=== PATIENT | female | born 1950 | race Caucasian/White ===

== ENCOUNTER → 2020-01-27 11:25 | Outpatient (CLI) | payer MEDICARE, SELFPAY | PROVIDERS: Referring Provider Nurse Practitioner Adult Health; Visit Provider Nurse Practitioner Adult Health | DX: R35.0 Frequency of micturition (principal) | CPT/HCPCS: 87086; 87088 ==

== ENCOUNTER → 2020-10-15 11:49 | Outpatient (CLI) | payer MEDICARE, SELFPAY | PROVIDERS: Referring Provider Urology; Visit Provider Urology | DX: Z87.440 Personal history of urinary (tract) infections (principal) | CPT/HCPCS: 87086; 87088 ==

== ENCOUNTER 2020-12-03 10:36 | Emergency (ER) | payer MEDICARE, SELFPAY ==
[2020-12-03] VITALS (9 sets, daily range): BP systolic 126–137; BP diastolic 68–77; PULSE 60–87; RESP 12–20; TEMP 36.3; O2SAT 98–100; BMI 26.7
--- NOTE | 2020-12-03 11:20 | RAD_ITS ---
STUDY: X-RAY - LEFT WRIST REASON FOR EXAM: Female, 69 years old. Injury -- SLIPPED ON ICE AND FELL IN DRIVEWAY TECHNIQUE: 3 view(s) of the wrist were obtained. COMPARISON: None. FINDINGS: Comminuted fracture of the distal radial metaphysis with dorsal facing. Normal radiocarpal articulation. Normal distal radioulnar articulation. Normal carpal bones. Normal carpal articulations. Normal carpometacarpal articulation of the thumb. Normal second through fifth carpometacarpal articulations. Normal visualized metacarpal bones. Soft tissue swelling. RAD/Wrist min 3 Views IMPRESSION: Comminuted fracture of the distal radial metaphysis with extension to the articular surface and dorsal facing. Soft tissue swelling. Electronically Signed: Esteban Blas MD at 13:07 EST , Service support ,
--- NOTE | 2020-12-03 11:33 | ED.VIS.FALL ---
History of Present Illness Chief Complaint: Fall Informant: Patient, Significant Other Occurred: Today - Just prior to arrival Mechanism/Context: Same level fall, Slip - On ice outside near her car Location: Left upper extremity Quality of Pain: Aching Current Severity: Severe Maximum Severity: Severe Worsened by: Movement Relieved by: Remaining still Associated Symptoms: Loss of function. Negative for: Parasthesias, Weakness, Inability to ambulate, Loss of consciousness, Amnesia Narrative: Patient accidentally slipped on ice, falling against some rocks in her landscaping versus her left shoulder blade and her wrist. History of osteopenia/osteoporosis. Denies any head injury or other injury, takes no anticoagulants. - Past Medical History (1) Goiter Status: Chronic (2) Osteoporosis Status: Chronic Past Medical History - Allergies and Home Meds Allergies/Adverse Reactions: Allergies lidocaine Allergy (Verified 12/03/20 15:15) Anaphylaxis carbinoxamine [From Rondec] Adverse Reaction (Verified 12/03/20 10:37) Rash erythromycin base [From E-Mycin] Adverse Reaction (Verified 12/03/20 10:37) Diarrhea pseudoephedrine [From Rondec] Adverse Reaction (Verified 12/03/20 10:37) Rash Primary Care Physician: Martin Simms DO [STAFF PHYSICIAN] - (Call for appointment to be seen within the next 1-2 weeks) PodlogAshlyn luevano NP, CLIENT APPLICATION SUPPORT ENGINEER-C [Primary Care Provider] - Lives: Spouse/ Significant Other Smoking Status: Never smoker Review of Systems General: Denies: Chills, Fever, Sweats Eyes: Denies: Visual changes - bilaterally, Diplopia ENT: Denies: Rhinorrhea, Sore throat Cardiovascular: Denies: Chest pain, Palpitations Respiratory: Denies: Dyspnea, Cough, Dyspnea on exertion Gastrointestinal: Denies: Abdominal pain, Nausea, Vomiting, Diarrhea, Melena, Hematochezia Genitourinary: Denies: Dysuria, Hematuria, Frequency Musculoskeletal: Reports: Back pain - Nonpleuritic, Extremity Pain. Denies: Neck pain Skin: Denies: Rash, Wounds Neurological: Denies: Headache, Weakness, Numbness Physical Exam Vital Signs/Narrative: Vital Signs Temp Pulse Resp BP Pulse Ox 12/03/20 10:38 97.3 F L 84 17 132/68 H 100 Inital Vital Signs reviewed: Yes General: Well nourished, Well developed, - - Anxious, no distress. Hyperventilating. Head: Normocephalic, Atraumatic Eyes: Perrl, EOMI ENT: TM's clear, No hemotympanum or drainage, No trauma Neck: Nontender, Full ROM Cardiovascular: Regular rate, Regular rhythm, No murmurs. Negative for: Tachycardia Respiratory: No distress, CTA bilaterally, Chest nontender Abdomen: Soft, Nontender, Nondistended, Normal bowel sounds Back: Paraspinal Tenderness - Mild around left parascapular area only. Negative for: Spinal Tenderness Extremeties: Deformity, limited range of motion, and tenderness left distal radius/ulna. Pulses intact. Fingers and hand otherwise nontender. No tenderness at the snuffbox. Elbow nontender and good range of motion without pain. Tenderness in the anterior proximal humerus without deformity with the pectorals insert. No AC tenderness or acromion tenderness. Otherwise the other 3 extremities full range of motion atraumatic without pain. Pelvis stable. Skin: Normal color, Trauma - Ecchymosis left wrist, skin intact Neurological: Alert, Oriented x3, Cranial nerves II-XII grossly intact, Normal Strength, Normal Sensation Psychological: - - Anxious Diagnostic/Tx/Re-eval Clinical Impression(s) from Imaging Studies Wrist X-Ray 12/03/20 11:20 IMPRESSION: Comminuted fracture of the distal radial metaphysis with extension to the articular surface and dorsal facing. Soft tissue swelling. Electronically Signed: Esteban Blas MD at 13:07 EST , Service support , Shoulder X-Ray 12/03/20 12:15 IMPRESSION: Degenerative changes. Electronically Signed: Esteban Blas MD at 13:06 EST , Service support , Wrist X-Ray 12/03/20 14:50 IMPRESSION: Satisfactory reduction of the distal radial fracture with mild residual dorsal facing. Electronically Signed: Esteban Blas MD at 15:07 EST , Service support , - Medical Decision Making X-rays of the injured areas were obtained, I am not worried about her elbow which works fine, the left shoulder/scapula are good on x-ray and she is able to move those better once we got her analgesics and calmed. Although it was not previously on her allergy list, patient states that she is anaphylactic to local anesthetics. She does not know the exact drug, but certainly we will not test this and I discussed procedural sedation which she agreed to. She had been n.p.o. for about 4 hours after we had x-rayed her left wrist showing a displaced distal radius fracture that required reduction, she was given analgesics and monitored for another hour or 2 at which point we sedated her, performed closed reduction, and splint there. This resulted in excellent reduction. Discussed with Dr. Cabrera, who agrees to follow-up with her in the office. Procedures - Upper Extremity Splints Upper Extremity Splint: Orthoglass - AP short-arm Splint Fabrication: Fabricated Location: Left - NVID after placement Procedure(s): Closed reduction left distal radius fracture --after providing procedural sedation, I manually performed reduction of the dorsally angulated and displaced distal radius fracture. Postreduction films show significantly improved alignment. Procedural sedation--patient has been n.p.o. for 5-6 hours after a small breakfast of cereal, milk, berries. She consented after discussing risk and benefits. Timeout was performed. Patient was given 1 mg/kg of IV propofol after analgesics and Zofran. Good sedation was obtained, she was on the monitor, prophylactic oxygen via nasal cannula, and IV fluids were given with airway equipment at the bedside which was not needed. There were no complications, blood pressure maintained, airway maintained, she recovered uneventfully. ED Disposition - Plan for ED Patient: Disposition: Home or Assisted Living Diagnosis: Fall from slipping on ice, Closed traumatic displaced fracture of distal end of left radius Instructions: ED Colles Fracture, Reduction Required Prescriptions: traMADol [Ultram] 50 mg PO Q4H PRN PRN 2 Days #12 tab PRN Reason: Pain Prescription Printed Referrals: PodlogAshlyn luevano NP, CLIENT APPLICATION SUPPORT ENGINEER-C [Primary Care Provider] - Martin Simms DO [STAFF PHYSICIAN] - (Call for appointment to be seen within the next 1-2 weeks)
[2020-12-03] MEDS: Ondansetron ODT 4 MG Tablet 8 MG PO (11:58)
[2020-12-03] MEDS: Morphine 4 MG/ML Syringe SC (11:58)
--- NOTE | 2020-12-03 12:15 | RAD_ITS ---
STUDY: X-RAY - LEFT SHOULDER REASON FOR EXAM: Female, 69 years old. Injury -- SLIPPED ON ICE AND FELL IN DRIVEWAY TECHNIQUE: 2 view(s) of the shoulder. COMPARISON: None. FINDINGS: Normal glenohumeral articulation. There is degenerative arthrosis of the acromioclavicular joint without inferior osseous spur formation. Normal acromion. Normal humeral head and visualized proximal humerus. The soft tissue structures are unremarkable. Mild increased markings in the left lung base suggestive of atelectasis. RAD/Shoulder min 2 Views IMPRESSION: Degenerative changes. Electronically Signed: Esteban Blas MD at 13:06 EST , Service support ,
[2020-12-03] MEDS: 0.9% Normal Saline 1,000 ML 200 ML IV (14:21)
[2020-12-03] MEDS: Propofol 200 MG/20 ML Vial IV BOLUS (14:25)
--- NOTE | 2020-12-03 14:50 | RAD_ITS ---
STUDY: X-RAY - LEFT WRIST REASON FOR EXAM: Female, 69 years old. Postreduction TECHNIQUE: 2 view(s) of the wrist were obtained. COMPARISON: Comparison is made with prior examination of the day. FINDINGS: Satisfactory reduction of the comminuted fracture of the distal radial metaphysis with extension to the articular surface. Mild residual dorsal facing. Normal radiocarpal articulation. Normal distal radioulnar articulation. Normal carpal bones. Normal carpal articulations. Normal carpometacarpal articulation of the thumb. Normal second through fifth carpometacarpal articulations. Normal visualized metacarpal bones. Soft tissue swelling. RAD/Wrist 2 Views IMPRESSION: Satisfactory reduction of the distal radial fracture with mild residual dorsal facing. Electronically Signed: Esteban Blas MD at 15:07 EST , Service support ,
== END 2020-12-03 15:31 | disposition home or self-care (01) ==
PROVIDERS: Emergency Provider Emergency Medicine; PCP Nurse Practitioner Primary Care
DX: S52.592A Other fractures of lower end of left radius, initial encounter for closed fracture (principal); W00.0XXA Fall on same level due to ice and snow, initial encounter; Y93.9 Activity, unspecified; Y92.007 Garden or yard of unspecified non-institutional (private) residence as the place of occurrence of the external cause; Y99.9 Unspecified external cause status; M81.0 Age-related osteoporosis without current pathological fracture
CPT/HCPCS: 25605; 73030; 73100; 73110; 96361; 96374; 99152; 99285; J7030

== ENCOUNTER 2020-12-10 06:20 | Outpatient (RCR) | payer MEDICARE, SELFPAY ==
[2020-12-03 10:38] VITALS: BMI 26.7
[2020-12-10] MEDS: COVID-19 VACC, MRNA(PFIZER)/PF 30 MCG/0.3 ML SYRINGE IM (15:10)
[2020-12-31] MEDS: COVID-19 VACC, MRNA(PFIZER)/PF 30 MCG/0.3 ML SYRINGE IM (14:32)
== END 2021-03-16 23:59 ==
LOC: IMMUN 06:20
PROVIDERS: PCP Nurse Practitioner Primary Care; Referring Provider Family Medicine; Visit Provider Family Medicine
DX: Z23 Encounter for immunization (principal)
CPT/HCPCS: 0001A; 0002A; 91300

== ENCOUNTER → 2022-07-19 | Outpatient (CLI) | payer MEDICARE, SELFPAY | END | disposition home or self-care (01) | LOC: LAB 10:14 | PROVIDERS: PCP Nurse Practitioner Primary Care; Referring Provider Urology; Visit Provider Urology | DX: R35.0 Frequency of micturition (principal) | CPT/HCPCS: 87086; 87088 ==

== ENCOUNTER 2024-03-29 13:00 | Outpatient (RCR) | payer MEDICARE, SELFPAY ==
--- NOTE | 2024-01-31 13:00 | HP.PTEVAL_ITS ---
Patient's Visit Information Visit Information Visit Information: NICK JOYNER is a 73 year old F referred to Physical Therapy by Dr. Sheela Montgomery MD with a diagnosis of RETROCELE WITH LOW BACK PAIN. Date of Evaluation: 01/22/24 Physical Therapist: Shanell Henson, PT, Cert MDT Visit Plan Frequency: 1-2x /Week Duration: 2-4 Months Plan: PF THERAPY FOR STRENGTHENING, LENGTHENING/RELAXATION AND ENDURANCE TRAINING. URINARY URGE AND FREQUENCY EDUCATION. HEALTHY BLADDER HABIT EDUCATION. TRAINING IN COORDINATION OF PELVIC FLOOR MUSCULATURE WITH HIP AND CORE (TRANSVERSE ABDOMINUS) MUSCULATURE. CORE STRENGTHENING. GARY LE ROM, STRETCHING AND STRENGTHENING. TRAINING IN ABDOMINAL CAVITY PRESSURE MGMT WITH ADL'S. Subjective Subjective: Work/Leisure: RETIRED. . LIVES IN 2 STORY HOME. 2 CHILDREN. VAGINAL DELIVERIES. NO COMPLICATIONS WITH DELIVERIES. Present symptoms: INTERMITTENT LOW BACK PAIN. INTERMITTENT LLE PAIN, NUMBNESS AND TINGLING. URINARY URGENCY, FREQUENCY AND URINARY INCONTINENCE. FEELS BULGING FROM DX OF RETROCELE ONLY WHEN PUTS VAGINAL CREAM IN. INTERMITTENT DIFFICULTY WITH BOWEL MVMTS. Present since: UI FOR YEARS. BACK - SEP 2022. BOWEL - ABOUT 6 MONTHS AGO. Pain Scale: LBP: WORST 8/10, LEAST 0/10. NO PELVIC FLOOR PAIN. Currently: /10. Is it getting better, worse or staying the same: STAYING THE SAME. Commenced as a result of: SITTING ON A HARD BENCH BROUGHT BACK PAIN ON. Worse: PROLONGED STANDING, BENDING (WEEDING) AND SITTING INCREASE LBP, RISING FROM SITTING PROVOKES URINARY URGENCY AT TIMES, SOMETIMES BENDING CAUSES UI. RIDING IN THE CAR PROVOKES URINARY FREQUENCY. Better: AVOIDING ICE TEA - HELPS FREQUENCY. BACK EXERCISES - CORE EX'S ON SB Disturbed sleep: GETTING UP 2-3 TIMES AT NIGHT TO URINATE. BACK PAIN IS NOT DISTURBING SLEEP. Previous history/Previous treatment: H/O UTI'S WITH THE LAST ONE BEING ABOUT 8 MONTHS AGO. TAKING CRANBERRY PILLS. SEEING 2 UROLOGISTS. PAIN MGMT WITH THE [facility] 2022 AND THAT IS WHEN SHE DID PHYSICAL THERPAY. MAINLY TREATED WITH PT. NO BACK SURGERY OR KELTON'S. Treatment this episode: CRANBERRY PILLS AND PRESCRIPTION VAGINAL CREAM FOR UTI PREVENTION. HEP FOR BACK. Coughing/sneezing/straining: NEGATIVE FOR BACK PAIN. POSITIVE Occasionally for UI. Gait: NORMAL - WALKING EVERY OTHER DAY FOR EX. How long can you delay the need to urinate: ABOUT 10 MIN. Prolapse (Falling out feeling): NO Frequency of Urination: PATIENT IS UNABLE TO ANSWER. SHE DESCRIBES SOME JUST IN CASE VOIDING AND STATES THAT DR. MONTGOMERY TOLD HER TO GO EVERY 2 HOURS BUT SHE ISN'T SURE IF SHE DOES. Ability to stop urine flow: YES Ability to initiate urine stream: YES Dyspareunia: NO Bowel Incontinence: NO Accidents: NO Unexplained weight loss: NO Imaging: MRI LUMBAR LAST 2022 - DDD PER PATIENT REPORT. PMH/Recent major surgery: OSTEOPOROSIS. HEART MURMER, GOITER, HYSTERECTOMY 2007. Objective Objective: Sitting/Standing Posture: POOR. FORWARD HEAD. ROUNDED SHOULDERS. NORMAL LUMBAR LORDOSIS. NO RELEVANT LATERAL SHIFT. Active Correction of posture: NE. ABLE TO CORRECT. DOES NOT MAINTAIN. Other Observations: THIS PATIENT AMBULATES INDEP'LY INTO PT WITHOUT ANY AD'S OR LOB. SHE IS ABLE TO INDEP'LY TRANSFER FROM SIT TO STAND AND REVERSE WITHOUT UE ASSIST. Sensory deficit: GARY LE LIGHT TOUCH SENSATION IS GROSSLY INTACT AND SYMMETRICAL ROM deficit: GARY HS, HIP ADD AND HIP ROTATOR TIGHTNESS: IR TIGHTNESS L HIP > R AND ER TIGHTNESS R HIP > L. GARY GASTROC-SOLEUS TIGHTNESS. Motor deficit: R HIP 4/5, KNEE 4/5, ANKLE 5/5. L HIP 4-/5, L KNEE 4-/5, ANKLE 5/5. INTERNAL MANUAL VAGINAL PELVIC FLOOR TESTING REVEALS 3/5 STRENGTH X 4 SEC X 3 REPS. Reflexes: 0 R LE, 1+ L LE. Dural Signs: NEGATIVE GARY LE'S. Lumbar mvmt loss: flex - NIL - DECREASES - B ext - MIN - INCREASES CENTRAL LBP - NW R SG - MIN - NE L SG - MIN - NE Core strength: FAIR Palpation: NO ACUTE LUMBAR TENDERNESS. FUNCTIONAL SCREEN: Incontinence Impact Questionnaire Score: 0 Urogenital Distress Inventory Score: 4 Balance/Special Test Scores Oswestry Low Back Score: 9 Goals Goal 1:: DECREASE C/O LBP BY AT LEAST 50% TO EASE ADL'S. Goal Time Frame: 4-6 Weeks Goal 2:: DECREASE URINARY LEAKAGE EPISODES TO ONE OR LESS PER DAY Goal Time Frame: 6-8 Weeks Goal 3:: PATIENT WILL SUCCESSFULLY DELAY VOIDING LONG NEEDED WHEN URGENCY OCCURS TO SUCCESSFULLY MAKE IT TO THE BATHROOM. Goal Time Frame: 4-6 Weeks Goal 4:: PATIENT WILL DEMONSTRATE/COMMUNICATE 10 CONSISTENT AND CONSECUTIVE 10 SECOND PELVIC FLOOR MUSCLE CONTRACTIONS TO DEMONSTRATE IMPROVED PELVIC FLOOR ENDURANCE. Goal Time Frame: 8-12 Weeks Goal 5:: DEVELOP HEALTHY FLUID INTAKE HABITS WITH FLUID INTAKE OF ? BODY WEIGHT IN OUNCES PER DAY AND 2/3 BEING WATER AND NORMALIZE VOIDING FREQUENCEY TO EVERY 3-4 HOURS. Goal Time Frame: 4-6 Weeks Goal 6:: PATIENT WILL BE INDEP WITH A HEP/HOME INSTRUCTIONS FOR CONTINUED IMPRO VEMENT ONCE FORMAL PHYSICAL THERAPY CONCLUDES. Goal Time Frame: 8-12 Weeks Rehabilitation Potential Physical Therapy Diagnosis: CORE AND GARY LE WEAKNESS AND STIFFNESS. PELVIC FLOOR WEAKNESS. SX'S OF STRESS UI, URGE UI AND INCREASED URINARY FREQUENCY. Rehabilitation Potential: Good Anticipated Interventions Patient/Client Instruction: Educate patient on: Condition, Plan of Care and Risk Factors For the Purpose of:: To improve self management Therapeutic Exercise to Include: Strength training, Endurance training, Body mechanics, Postural training, Flexibilty training, Neuromotor development, In an aquatic setting and Dynamic Lumbar Stabilization For the Purpose of:: To decrease pain, To improve muscle performance and motor function, To increase tolerance to activity/condition/position and To improve ability of physical actions for home/community/work/leisure Text: Thank you for the opportunity to evaluate your patient. For Medicare and Medicare HMO plans, please review the plan of care and approve it. It will need to be FAXED BACK to us at [phone] for Medicare purposes. For Medicare only, by signing this I certify the plan of care. Please let me know if there are questions or concerns regarding this plan of care. Physician Signature: _Date:
--- NOTE | 2024-03-29 13:58 | HP.PTDCSUM_ITS ---
Discharge Summary D/C summary: It has been my pleasure to treat NICK JOYNER referred by Dr. Sheela Perez MD, with the diagnosis of RETROCELE WITH LOW BACK PAIN for a total of 9 visit(s). Discharge Date: 03/29/24 Please see the following information for a summary of their discharge status. Subjective Subjective: THIS HAS REALLY REALLY HELPED. PATIENT REPORTS SHE IS LEAVING FOR A TRIP TO [place] AND SHE IS NOT GOING TO WEAR PROTECTION AND SHE IS NOT WORRIED ABOUT IT. STATES SHE SLEPT THROUGH THE NIGHT LAST THE NIGHT. HAS BEEN MULCHING AND MANAGING LOW BACK BETTER. HASN'T HAD ANY URINARY LEAKING FOR ABOUT A MONTH OR MORE. FEELS READY TO BE DISCHARGED. PATIENT REPORTS EVEN HER BOWEL MVMTS HAVE BEEN BETTER AND SHE ISN'T HAVING ANY PROBLEMS WITH THE BOWEL MVMTS GETTING STUCK NOW. Pain LOW BACK PAIN: Pain Intensity (Out of 10): 0 LLE PAIN: Pain Intensity (Out of 10): 0 Overall Improvement % Improvement: 95 Objective Objective/Function: ALL GOALS MET. THIS PATIENT HAS DONE REALLY WELL WITH PHYSICAL THERAPY AND SHE IS APPROPRIATE FOR AND AGREEABLE TO DISCHARGE TO [facility] AT THIS TIME. FUNCTIONAL SCREEN: Incontinence Impact Questionnaire Score: 0 Urogenital Distress Inventory Score: 1 Goals Goal 1:: DECREASE C/O LBP BY AT LEAST 50% TO EASE ADL'S. Goal Progress: Goal Met Goal 2:: DECREASE URINARY LEAKAGE EPISODES TO ONE OR LESS PER DAY Goal Progress: Goal Met Goal 3:: PATIENT WILL SUCCESSFULLY DELAY VOIDING LONG NEEDED WHEN URGENCY OCCURS TO SUCCESSFULLY MAKE IT TO THE BATHROOM. Goal Progress: Goal Met Goal 4:: PATIENT WILL DEMONSTRATE/COMMUNICATE 10 CONSISTENT AND CONSECUTIVE 10 SECOND PELVIC FLOOR MUSCLE CONTRACTIONS TO DEMONSTRATE IMPROVED PELVIC FLOOR ENDURANCE. Goal Progress: Goal Met Goal 5:: DEVELOP HEALTHY FLUID INTAKE HABITS WITH FLUID INTAKE OF ? BODY WEIGHT IN OUNCES PER DAY AND 2/3 BEING WATER AND NORMALIZE VOIDING FREQUENCEY TO EVERY 3-4 HOURS. Goal Progress: Goal Met Goal 6:: PATIENT WILL BE INDEP WITH A HEP/HOME INSTRUCTIONS FOR CONTINUED IMPROVEMENT ONCE FORMAL PHYSICAL THERAPY CONCLUDES. Goal Progress: Goal Met Plan Plan: D/C D/C Information d/c sentence: If there are questions or concerns regarding this patient's physical therapy, please feel free to call me at [phone]. Thank you for the referral of this patient. Sincerely, Shanell Henson, PT, Cert MDT Balance/Gait/Functional tests Balance/Special Test Scores Oswestry Low Back Score: 9 Improvement % Improvement: 95
== END 2024-03-29 19:00 | disposition home or self-care (01) ==
LOC: PT 13:00
PROVIDERS: PCP Nurse Practitioner Primary Care; Referring Provider Urology; Visit Provider Urology
DX: N81.6 Rectocele (principal); M54.50 Low back pain, unspecified
CPT/HCPCS: 97162; 97530

== ENCOUNTER 2024-05-07 02:39 | Emergency (ER) | payer MEDICARE, SELFPAY ==
[2024-05-07 02:40] VITALS: BP 159/107; PULSE 83; RESP 17; TEMP 36.6; O2SAT 99; BMI 27.8
[2024-05-07 02:47] VITALS: BP 159/107; PULSE 84; RESP 16; TEMP 36.6; O2SAT 99
--- NOTE | 2024-05-07 03:16 | EX.ED.DYSGE1 ---
HPI History of Present Illness Chief Complaint: Allergic Reaction Informant: patient and spouse/S.O. Narrative Narrative: 73-year-old female presenting with hives and trouble sleeping because she is itching so much. She states this has been going on for 2 weeks. She thinks it started around the time she was eating some peaches at that bot, and some blueberries that she ate from a [place] farm where [place] was [place] them and thought maybe it was something that was on them. She stopped that but the hives persist. She states when it started it was where the elastic band for her underwear is and the underwire of her bra and she has had elastic band reactions in the past. However it has spread to her legs and her arms. 3 days ago she went to urgent care because her vagina was itching to and she was not sure if she had hives there but she denied any discharge. She was given fluconazole to cover her for yeast, she did a self swab and they tested it and she was then treated for bacterial vaginosis with Flagyl which she is now taking and in addition all of this she was spreading triamcinolone cream on the rash which was not helping. Nothing is worse now she just looking for solutions. She presents at 3 AM and states she has an appointment with her material distributor later today. She has taken no Benadryl she states it makes her really sleepy. [facility] Medical History (Updated 05/07/24 @ 03:[address] Suhas Davis MD) Goiter Mitral valve prolapse Enlarged thyroid gland Home Medications ?Medication ?Instructions ?Recorded ?Last Taken ?Type cranberry 400 mg capsule 400 mg PO DAILY 10/28/17 Unknown History estradiol 0.01% (0.1 mg/gram) 1 appful vaginal QWEEK 05/07/24 Unknown History vaginal cream fluconazole 150 mg tablet 150 mg PO X1 05/07/24 Unknown History melatonin 1 mg tablet 1 mg PO QHS 05/07/24 Unknown History metoprolol succinate 25 mg 25 mg PO DAILY 05/07/24 Unknown History tablet,extended release 24 hr metronidazole 0.75 % topical gel 1 applic topical BID 05/07/24 Unknown History metronidazole 500 mg tablet 500 mg PO BID 05/07/24 Unknown History multivitamin (Daily Multi-Vitamin 1 tab PO DAILY 05/07/24 Unknown History tablet) prednisone 20 mg tablet 40 mg (2 x 20 mg) PO DAILY 6 days 05/07/24 Unknown Rx #12 TABLETS Allergy/AdvReac Type Severity Reaction Status Date / Time doxycycline Allergy Rash Verified 05/07/24 02:56 lidocaine Allergy Anaphylaxis Verified 05/07/24 02:56 brompheniramine AdvReac Unknown PT UNSURE Verified 05/07/24 02:56 OF REACTION amoxicillin (From Augmentin) AdvReac Diarrhea Verified 05/07/24 02:56 bupivacaine AdvReac Angioedema Verified 05/07/24 02:56 carbinoxamine (From Rondec) AdvReac Rash Verified 05/07/24 02:56 clavulanic acid (From AdvReac Diarrhea Verified 05/07/24 02:56 Augmentin) clotrimazole AdvReac Hives Verified 05/07/24 02:56 epinephrine AdvReac Shortness Verified 05/07/24 02:56 of breath erythromycin base (From AdvReac Diarrhea Verified 05/07/24 02:56 E-Mycin) meloxicam AdvReac Diarrhea Verified 05/07/24 02:56 pseudoephedrine (From Rondec) AdvReac Rash Verified 05/07/24 02:56 Social History Smoking Status: Never smoker ROS ROS ED Constitutional Constitutional ED: Denies chills or fever(s) Eyes Eyes: Denies change in vision or diplopia ENT ENT ED: Denies rhinorrhea or sore throat Cardiovascular Cardiovascular: Denies chest pain or palpitations Respiratory/Chest Respiratory/Chest: Denies cough or dyspnea Gastrointestinal Gastrointestinal: Denies abdominal pain, diarrhea, nausea or vomiting Genitourinary Genitourinary ED: Denies dysuria or hematuria Musculoskeletal Musculoskeletal: Reports other Details: Anterior neck soreness status post recent thyroid biopsy ; Denies back pain Integumentary Reports as per HPI, pruritus and rash; Denies abscess Neurologic Neurologic: Denies headache(s), paresthesias or weakness Psychiatric Psychiatric: Denies suicidal thoughts EXAM Physical Exam Const Vital Signs: 05/07/24 02:40 05/07/24 02:47 Temperature 97.8 F 97.8 F Temperature Source Oral Oral Pulse Rate 83 84 Respiratory Rate 17 16 Blood Pressure 159/107 H 159/107 H Blood Pressure Mean 124 124 Pulse Ox 99 99 Oxygen Delivery Method Room Air Room Air Positive well nourished and well developed General Appearance ED: well developed and NAD HEENT Reports moist mucous membranes HEENT Narrative: No stridor or dysphonia. normocephalic and atraumatic Eyes PERRL and EOMs intact bilaterally Neck full ROM and supple Neck Narrative: Small Band-Aid over biopsy site anterior base of neck where there is some erythema. No cellulitis or significant tenderness. Resp normal respiratory effort and clear to auscultation bilaterally Cardio regular rate and regular rhythm Heart Sounds: murmur systolic GI non-distended Back/Spine General Back: other FROM Extremity General Extremety ED: Negative for edema, pulses abnormal or tenderness General Extremity: Negative for edema or pulses abnormal Neuro oriented x3, CN's II-XII intact bilaterally and no sensory deficits noted Sensorium / Orientation: awake and alert Motor Exam: strength 5/5 throughout Psych mental status grossly normal Skin Skin Narrative: Scattered urticaria mostly proximal medial thighs, both upper arms and forearms, some on upper and lower abdominal wall. No other rash, no bullae or petechia or purpura. Nothing that is tender. MDM MDM MDM Narrative Medical decision making narrative: After discussing options she is amenable to taking a diphenhydramine 25 mg and amenable to starting some prednisone. We discussed the potential side effects and collateral damage from that which I think is minimal given that much itching she is having she is agreeable to take it. She was given a written prescription, only because she is going to see an material distributor later today before she will need her next dose, she is amenable to that plan. She is not anaphylactic or showing any anaphylactoid symptoms. Discharge Plan Triage Chief Complaint: Allergic Reaction Other Complaint: Rash ED Provider: Suhas Davis Dx/Rx/DC Orders Clinical Impression: Urticaria Instructions: ED Hives (Adult) Prescriptions: New prednisone 20 mg tablet 40 mg PO DAILY 6 Days Qty: 12 0RF No Action cranberry 400 MG capsule 400 mg PO DAILY metronidazole 500 mg tablet 500 mg PO BID metoprolol succinate 25 mg tablet extended release 24 hr 25 mg PO DAILY Patient Comments: will start after current issue is resolved metronidazole 0.75 % gel 1 applic topical BID fluconazole 150 mg tablet 150 mg PO X1 melatonin 1 mg tablet 1 mg PO QHS estradiol 0.01 % (0.1 mg/gram) cream 1 appful vaginal QWEEK Rx Instructions: for 14 days multivitamin [Daily Multi-Vitamin] Tablet 1 tab PO DAILY Primary Care Provider: Podlogar,Ashlyn AERONAUTICAL ENGINEERING TECHNOLOGIST Referrals: Podlogar,Ashlyn AERONAUTICAL ENGINEERING TECHNOLOGIST, AERONAUTICAL ENGINEERING TECHNOLOGIST-C [Primary Care Provider] - Doctor,Your [Non-Staff] - Keep Jaimee appointment Print Language: Vietnamese Disposition Disposition: Home, Self Care
[2024-05-07] MEDS: predniSONE 20 MG Tablet 40 MG PO (03:19)
[2024-05-07] MEDS: DiphenhydrAMINE 25 MG Capsule PO (03:19)
[2024-05-07 03:20] VITALS: BP 150/97; PULSE 95; RESP 18; TEMP 36.6; O2SAT 93
== END 2024-05-07 03:33 | disposition home or self-care (01) ==
PROVIDERS: Emergency Provider Emergency Medicine; PCP Family Medicine; Visit Provider Emergency Medicine
DX: L50.0 Allergic urticaria (principal)
CPT/HCPCS: 99283

== ENCOUNTER 2025-09-18 17:11 | Inpatient (IN) | payer MEDICARE, SELFPAY ==
[2025-09-18] VITALS (28 sets, daily range): BP systolic 65–104; BP diastolic 41–59; PULSE 73–96; RESP 14–43; TEMP 36.5–36.8; O2SAT 87–98; BMI 27.8; BMI 28.6
--- NOTE | 2025-09-18 17:51 | CT_ITS ---
PROCEDURE: CTA CHST, ABD, PEL W AND/OR WO 09/18/2025 REASON FOR EXAM: CHEST PAIN, BACK PAIN, R/O AORTIC DISSECTION TECHNIQUE: Procedure Code: CTCTA.CHAP.2 Modality: CT Procedure: CTA CHST, ABD, PEL W AND/OR WO Coronal and Sagittal reconstruction series were provided. One or more dose reduction techniques were used (e.g., Automated exposure control, adjustment of the mA and/or kV according to patient size, use of iterative reconstruction technique. CONTRAST: Isovue 370 VOLUME: 100 mL RADIATION DOSE SUMMARY: CTDlvol: 19+ 12 mGy DLP: 811 mGycm FINDINGS: Enlarged heterogeneous thyroid. The esophagus is normal in caliber. Degenerative changes of the spine. Pulmonary artery measures 2.7 cm in diameter. No pulmonary artery filling defects. The lungs are clear. The heart is enlarged. No pericardial effusion. No mediastinal lymphadenopathy. Numerous hepatic cysts. Additional subcentimeter hypodense hepatic lesions that are too small to characterize. The gallbladder, pancreas, spleen, and adrenals are unremarkable. Bilateral kidney simple cysts. No hydroureteronephrosis. The urinary bladder is unremarkable. Normal caliber large and small bowel without surrounding inflammatory changes. Dense colonic stool suspicious for constipation. Normal caliber thoracic aorta. Mild scattered atherosclerosis of the aorta. The celiac trunk, superior mesenteric artery, bilateral renal arteries, inferior mesenteric artery, and bilateral common iliac arterial systems are widely patent. No evidence of aortic dissection or aneurysm. CT/CTA Chst, Abd, Pel W and/or WO IMPRESSION: No evidence of aortic dissection or aneurysm. The thoracic and abdominal aorta are normal in caliber with only mild scattered atherosclerosis. Cardiomegaly without pericardial effusion. Pulmonary arteries are patent with n o pulmonary embolus. Clear lungs. Numerous hepatic cysts with additional subcentimeter liver lesions that are too small to characterize. Bilateral renal simple cysts. No hydroureteronephrosis. Dense colonic stool burden suspicious for constipation. Enlarged heterogeneous thyroid. Further characterization with nonemergent ultr asound is recommended. Reading Location: [facility]
--- NOTE | 2025-09-18 17:51 | EKG12_ITS ---
Test Reason : CP Blood Pressure : */* mmHG Vent. Rate : 93 BPM Atrial Rate : 93 BPM P-R Int : 144 ms QRS Dur : 90 ms QT Int : 386 ms P-R-T Axes : 29 3 12 degrees QTcB Int : 479 ms Normal sinus rhythm Minimal voltage criteria for LVH, may be normal variant ( R in aVL ) Nonspecific ST abnormality Abnormal ECG Confirmed by RANDY MOMIN, RENE ([id number]), online content editor QUINTIN PA ([id number]) on 09/22/2025 6:32:32 AM Referred By: DARCI/KIP Confirmed By: RENE PADILLA MD
--- NOTE | 2025-09-18 17:53 | ED.VIS.CHEST ---
HPI History of Present Illness Chief Complaint: Chest Pain Narrative Narrative: Patient is a 74-year-old female presenting to the emergency department for chest pain. Patient has a past medical history of MVP, palpitations/tachycardia on metoprolol nightly and sees Dr. Quezada, [facility]. Patient states that over the last few days she has had acid reflux. She states that today she lightheaded at the grocery store. States when she got home she tried lying down and she developed left-sided chest pressure that radiated between her shoulder blades and lasted for about a minute. States that she still has the discomfort between her shoulder blades and feels short of breath as well. She denies any diaphoresis, abdominal pain, nausea or vomiting. Denies any leg swelling. Denies any recent travel, hospitalizations or surgeries. Denies any history of DVT or PE. She states that before, she tried some popcorn and developed severe pain in her jaw. She denies taking anything prior to arrival to help with her symptoms. [facility] Medical History CKD (chronic kidney disease), stage II Chronic tachycardia Goiter Mitral valve prolapse Enlarged thyroid gland Home Medications ?Medication ?Instructions ?Recorded ?Last Taken ?Type cranberry fruit 400 mg capsule 500 mg PO DAILY 10/28/17 Unknown History metoprolol succinate 25 mg 25 mg PO DAILY 05/07/24 Unknown History tablet,extended release 24 hr multivitamin (Daily Multi-Vitamin 1 tab PO DAILY 05/07/24 Unknown History tablet) ascorbic acid (vitamin C) 500 mg 500 mg PO QDAY 09/18/25 Unknown History tablet (C-500) Allergy/AdvReac Type Severity Reaction Status Date / Time doxycycline Allergy Rash Verified 09/18/25 17:14 lidocaine Allergy Anaphylaxis Verified 09/18/25 17:14 brompheniramine AdvReac Unknown PT UNSURE Verified 09/18/25 17:14 OF REACTION amoxicillin (From Augmentin) AdvReac Diarrhea Verified 09/18/25 17:14 bupivacaine AdvReac Angioedema Verified 09/18/25 17:14 carbinoxamine (From Rondec) AdvReac Rash Verified 09/18/25 17:14 clavulanic acid (From AdvReac Diarrhea Verified 09/18/25 17:14 Augmentin) clotrimazole AdvReac Hives Verified 09/18/25 17:14 epinephrine AdvReac Shortness Verified 09/18/25 17:14 of breath erythromycin base (From AdvReac Diarrhea Verified 09/18/25 17:14 E-Mycin) meloxicam AdvReac Diarrhea Verified 09/18/25 17:14 pseudoephedrine (From Rondec) AdvReac Rash Verified 09/18/25 17:14 Family History Mother Heart disease Hypertension Heart failure Father GERD (gastroesophageal reflux disease) Surgical History S/P hysterectomy Social History household members: spouse Smoking Status: Never smoker alcohol intake: never substance use type: does not use ROS ROS ED ROS Narrative see HPI EXAM Physical Exam Narrative Exam Narrative: Vital signs: Reviewed General: Alert and oriented x 3. No acute distress. Well-appearing, nontoxic HEENT: Head is normocephalic and atraumatic, sinuses nontender, pupils equal round and reactive. Nares are patent. Oropharynx and throat exams normal. Neck: Supple without lymphadenopathy nontender Cardiovascular: Regular rate and rhythm. Murmur present. No rubs or gallops. Normal S1 and S2. Bilateral radial and DP pulses are symmetric and intact throughout. Respiratory: Clear to auscultation bilaterally. No wheezes, rales, rhonchi Abdominal: Soft and nontender. Normal bowel sounds. No guarding or rebound. Nonsurgical abdomen Extremities: No lower extremity edema. No tenderness. No bruising. Normal range of motion. Normal sensation. Skin: No rash or redness. Neurological: Cranial nerves II through XII are grossly intact. Normal strength and sensation. Normal cerebellar function The rest of the physical exam is unremarkable Const Vital Signs: 09/18/25 17:11 09/18/25 17:18 09/18/25 17:24 Temperature 97.8 F Temperature Source Oral Pulse Rate 95 87 Respiratory Rate 16 15 Respiratory Effort Normal Short of Breath Blood Pressure 102/58 L Blood Pressure Mean 72 Pulse Ox 98 97 Oxygen Delivery Method Room Air Oxygen Flow Rate (L/min) 09/18/25 17:30 09/18/25 17:30 09/18/25 17:45 Temperature Temperature Source Pulse Rate 84 84 96 Respiratory Rate 17 17 19 H Respiratory Effort Blood Pressure 104/59 L Blood Pressure Mean 69 Pulse Ox 94 94 91 Oxygen Delivery Method Oxygen Flow Rate (L/min) 09/18/25 18:00 09/18/25 18:15 09/18/25 18:42 Temperature Temperature Source Pulse Rate 83 88 Respiratory Rate 21 H 24 H Respiratory Effort Blood Pressure 79/44 L Blood Pressure Mean 55 Pulse Ox 93 90 91 Oxygen Delivery Method Oxygen Flow Rate (L/min) 09/18/25 18:45 09/18/25 18:50 09/18/25 18:50 Temperature Temperature Source Pulse Rate 82 83 Respiratory Rate 20 H 43 H Respiratory Effort Blood Pressure 73/42 L 75/49 L Blood Pressure Mean 51 56 Pulse Ox 87 Oxygen Delivery Method Room Air Oxygen Flow Rate (L/min) 09/18/25 18:52 09/18/25 19:00 09/18/25 19:15 Temperature Temperature Source Pulse Rate 80 76 Respiratory Rate 18 20 H Respiratory Effort Blood Pressure 78/53 L 77/51 L Blood Pressure Mean 62 60 Pulse Ox 95 92 90 Oxygen Delivery Method Nasal Cannula Oxygen Flow Rate (L/min) 2 09/18/25 19:30 09/18/25 19:45 09/18/25 19:55 Temperature Temperature Source Pulse Rate 87 73 Respiratory Rate 24 H 28 H Respiratory Effort Blood Pressure 79/50 L 65/48 L 71/48 L Blood Pressure Mean 59 55 56 Pulse Ox 92 92 90 Oxygen Delivery Method Oxygen Flow Rate (L/min) 09/18/25 20:00 09/18/25 20:15 09/18/25 20:30 Temperature 97.7 F L Temperature Source Oral Pulse Rate 77 80 Respiratory Rate 19 H 22 H Respiratory Effort Blood Pressure 70/42 L 68/47 L 74/51 L Blood Pressure Mean 51 55 59 Pulse Ox 91 94 93 Oxygen Delivery Method Oxygen Flow Rate (L/min) MDM MDM MDM Narrative Medical decision making narrative: Patient is a 74-year-old female presenting to the emergency department for chest pain and shortness of breath. Patient was seen and examined. Vitals are stable. Mildly hypotensive with a blood pressure of 104/59 when I evaluated her. Patient resting in bed comfortably no acute distress. Differential includes but is not limited to: ACS, aortic aneurysm versus dissection, pneumonia, pneumothorax, PE EKG shows normal sinus rhythm at a rate of 93. No ischemic changes or dysrhythmia. CBC with no leukocytosis and a normal hemoglobin. BMP with no significant electrolyte abnormalities. Glucose of 101. Magnesium and TSH within normal limits. Troponin and reflex within normal limits. Patient's blood pressure continued to drop, systolics in the 70s to 80s. Fluid bolus started. Patient is endorsing continued lightheadedness but no new symptoms. Normal mentation. CTA of the chest abdomen pelvis shows no evidence of aortic dissection or aneurysm. The thoracic and abdominal aorta are normal in caliber with only mild scattered atherosclerosis. Cardiomegaly without pericardial effusion. Pulmonary arteries are patent with no pulmonary embolus. Clear lungs. Numerous hepatic cysts with additional subcentimeter liver lesions that are too small to characterize. Bilateral renal simple cysts. No hydroureteronephrosis. Dense colonic stool burden suspicious for constipation. Enlarged heterogeneous thyroid. Further characterization with nonemergent ultrasound is recommended. Patient was reevaluated still hypotensive, I asked nursing staff to place an additional IV and written 2 L of normal saline. She still mentating normally I am hesitant to start pressors at this time given her normal lactate that shows no evidence of endorgan damage with her pressures. I discussed the findings with patient and at bedside and she is agreeable with being admitted. At this time I now have concern for possible causes of undifferentiated shock which include cardiogenic, septic, obstructive. There is no evidence of pericardial effusion that could be causing the shock. There is no leukocytosis or fever that could be septic in nature. I do not think is cardiogenic given her normal EKG and normal troponin. Did talk with the on-call pinion and wheel truer, Dr. Mejias who had no further recommendations. [place] that with a normal EKG and troponin it is not cardiogenic in nature. Discussed with hospitalist, Dr. Thakkar for admission to the ICU. Additional labs were added on after discussion. Considering adrenal insufficiency, however normal electrolytes.She denies any overdose on medications including her metoprolol. Clinical impression Hypotension Chest pain History & Record Review Discussion w/independent historian: Patient and Significant other Lab Data Attestation: I reviewed the patient's lab results. Labs: Laboratory Results - last 24 hr 09/18/25 09/18/25 09/18/25 17:21 19:20 20:05 WBC 5.1 RBC 4.46 Hgb 13.2 Hct 41.8 MCV 93.7 MCH 29.6 MCHC 31.6 L RDW Std Deviation 45.0 H RDW Coeff of Alexa 13.1 Plt Count 190 MPV 11.6 Immature Gran % (Auto) 0.200 Neut % (Auto) 46.3 L Lymph % (Auto) 41.4 H [place] % (Auto) 8.0 Eos % (Auto) 3.7 Baso % (Auto) 0.4 Absolute Neuts (auto) 2.4 Absolute Lymphs (auto) 2.12 Nucleated RBC % 0 ESR 4 Sodium 141 Potassium 4.1 Chloride 104 Carbon Dioxide 27.1 Anion Gap 10 BUN 17 Creatinine 0.85 Estim Creat Clear Calc 57.99 Est GFR (MDRD) Non-Af 72 BUN/Creatinine Ratio 19.8 Glucose 101 H Lactic Acid 1.3 Calcium 9.8 Magnesium 2.4 H 2.3 H Troponin T High Sens 10 Troponin T Hi Sens 2 Hr 11 C-React Prot Ext Range < 3.00 NT pro BNP II Procalcitonin < 0.02 TSH 0.660 0.622 Cortisol PM Sample 5.96 09/18/25 20:14 WBC RBC Hgb Hct MCV MCH MCHC RDW Std Deviation RDW Coeff of Alexa Plt Count MPV Immature Gran % (Auto) Neut % (Auto) Lymph % (Auto) [place] % (Auto) Eos % (Auto) Baso % (Auto) Absolute Neuts (auto) Absolute Lymphs (auto) Nucleated RBC % ESR Sodium Potassium Chloride Carbon Dioxide Anion Gap BUN Creatinine Estim Creat Clear Calc Est GFR (MDRD) Non-Af BUN/Creatinine Ratio Glucose Lactic Acid Calcium Magnesium Troponin T High Sens Troponin T Hi Sens 2 Hr C-React Prot Ext Range NT pro BNP II 1189 H Procalcitonin TSH Cortisol PM Sample ABG Data ABG results: ABG 09/18/25 20:13 Specimen Type JHONY Sample Site Not entered O2 % 2.0 VBG pH 7.36 VBG pO2 25 VBG HCO3 26 VBG Total CO2 28 VBG O2 Sat (Calc) 43 L VBG Base Excess 1 POC Mix VBG pCO2 Pt Tmp 46.2 O2 Delivery Device Cannula Radiography Diagnostic Testing: Clinical Impression(s) from Imaging Studies Chest/Abdomen/Pelvis CTA 09/18/25 17:51 IMPRESSION: No evidence of aortic dissection or aneurysm. The thoracic and abdominal aorta are normal in caliber with only mild scattered atherosclerosis. Cardiomegaly without pericardial effusion. Pulmonary arteries are patent with no pulmonary embolus. Clear lungs. Numerous hepatic cysts with additional subcentimeter liver lesions that are too small to characterize. Bilateral renal simple cysts. No hydroureteronephrosis. Dense colonic stool burden suspicious for constipation. Enlarged heterogeneous thyroid. Further characterization with nonemergent ultrasound is recommended. [facility] Disposition Disposition: Acute Care [facility] Discharge Date/Time: 09/18/25 21:31
[2025-09-18 18:19] LABS: Hematocrit 41.8 % (37-47); Hemoglobin 13.2 g/dL (12.0-15.0); Immature Granulocytes Count 0.010 X10^3/uL (0.0-0.0); Mean Corp Hgb Conc 31.6 g/dL (32-36); Mean Corpuscular Volume 93.7 fL (81-99); Mean Platelet Vol. 11.6 fl (6.2-12.0); NRBC Flagged by Analyzer 0 % (0-5); Platelet Count 190 K/mm3 (150-450); RBC Distribution Width CV 13.1 % (11.6-14.6); RBC Distribution Width SD 45.0 fl (35.1-43.9); Red Blood Count 4.46 M/mm3 (4.2-5.4); White Blood Count 5.1 K/mm3 (4.4-11.0)
--- OUTSIDE RECORDS SUMMARY | 2025-09-18 18:28 | XMS RPT_ITS | CCD ---
Author Organization [facility] Care Team Providers Care Patient Support Associate Name Role Phone Jamaica Thornton Unavailable Podlogar PLYWOOD PATCHER.Ashlyn POON Primary Care Provider Jamaica Thornton MD Unavailable Perry Bautista MD Primary Care Provider Podlogar PLYWOOD PATCHER.Ashlyn POON Primary Care Provider LEONARD POE Attending Unavailable LEONARD POE Referring Unavailable PODLOGAR, ASHLYN Primary Care Unavailable LEONARD POE Attending Unavailable LEONARD POE Referring Unavailable PODLOGAR, ASHLYN Primary Care Unavailable PRITI BOWSER Admitting Unavailable PRITI BOWSER Attending Unavailable FREDA SAAB Referring Unavailable PERRY BAUTISTA Primary Care UnavailPerry Amos MD Primary Care Provider Sheela Perez Referring Unavailable Sheela Perez Attending Unavailable Podlogar Ashlyn MENDEZ Primary Care Unavailable Charles Bautista Primary Care Unavailable Suhas Davis Attending Unavailable Podlogar PLYWOOD PATCHER.Ashlyn POON Primary Care Provider Podlogar PLYWOOD PATCHER.Ashlyn POON Unavailable Knoble PLYWOOD PATCHER.Regine POON Unavailable Knoble PLYWOOD PATCHER.Regine POON Unavailable Knoble PLYWOOD PATCHER.Regine POON Unavailable Knoble PLYWOOD PATCHER.Regine POON Unavailable BETY IGLESIAS Referring Unavailable PERRY BAUTISTA Primary Care Unavailab boyd PODLOGASHLYN LUEVANO Referring Unavailable PERRY BAUTISTA Primary Care Unavailab le PODLOGAR, ASHLYN Referring Unavailable PERRY BAUTISTA Primary Care Unavailab le PODLOGAR, ASHLYN Referring Unavailable PERRY BAUTISTA Primary Care Unavailab BETY Rush Attending Unavailable BETY IGLESIAS Referring Unavailable PERRY BAUTISTA Primary Care Unavailab PERRY Peña Attending Unavailab PERRY Peña Primary Care Unavailab PERRY Peña Primary Care Unavailab DINH Padilla Attending Unavailable DINH BARKSDALE Referring Unavailable PERRY BAUTISTA Primary Care Unavailab BETY Rush Referring Unavailable PERRY BAUTISTA Primary Care Unavailab le PERRY BAUTISTA Primary Care Unavailab DINH Padilla Referring Unavailable PERRY BAUTISTA Primary Care Unavailab REGINE Sethi Attending Unavailable PERRY BAUTISTA Primary Care Unavailab WANDA Mcleod Attending Unavailable PERRY BAUTISTA Primary Care Unavailab le PODLOGARASHLYN Attending Unavailable PERRY BAUTISTA Primary Care Unavailab FANTA Og Attending Unavailable PERRY BAUTISTA Primary Care Unavailab FANTA Og Referring Unavailable PERRY BAUTISTA Primary Care Unavailab FANTA Og Referring Unavailable PERRY BAUTISTA Primary Care Unavailab le PERRY BAUTISTA Primary Care Unavailab le PERRY BAUTISTA Referring Unavailab le PERRY BAUTISTA Primary Care Unavailab le PODLOGAR, ASHLYN Attending Unavailable PERRY BAUTISTA Primary Care Unavailab le Allergies Allergy Classification Reported Allergen(s) Allergy Type Date of Onset Reaction(s) Facility Amoxicillin / Clavulanate (1 source) Amoxicillin / Clavulanate Drug Allergy 06-20-20 05 Diarrhea [facility] Work Phone: Brompheniramine / Pseudoephedrine (1 source) Brompheniramine / Pseudoephedrine Drug Allergy 03-31-20 08 Unknown [facility] Bupivacaine / EPINEPHrine (1 source) Bupivacaine / EPINEPHrine Drug Allergy 07-11-20 23 Shortness of Breath, Angioedema [facility] Doxycycline (1 source) Doxycycline Drug Allergy 02-26-20 15 Rash [facility] Macrolides (antibiotic) (1 source) Erythromycin Drug Allergy 03-31-20 08 [facility] NSAIDs (1 source) meloxicam Drug Allergy 11-17-19 23 GI Upset [facility] Sulfonamides (antibiotic) (1 source) Sulfamethoxazole Drug Allergy 12-14-19 13 GI Upset [facility] (20 sources) Amoxicillin / Clavulanate; Translations: [AMOXICILLIN-POT CLAVULANATE] Drug Allergy 06-20-20 05 Diarrhea [facility] (20 sources) Brompheniramine / Pseudoephedrine; Translations: [BROMPHENIRAMINE-PSE UDOEPHEDRIN] Drug Allergy 03-31-20 08 Unknown [facility] (20 sources) Doxycycline; Translations: [DOXYCYCLINE] Drug Allergy 02-26-20 15 Rash [facility] (20 sources) Erythromycin; Translations: [ERYTHROMYCIN] Drug Allergy 03-31-20 08 Diarrhea [facility] (20 sources) Sulfamethoxazole; Translations: [SULFAMETHOXAZOLE] Drug Allergy 12-14-19 13 GI Upset [facility] Work Phone: (1 source) carbinoxamine Drug Allergy 12-03-19 21 [facility] Work Phone: (4 sources) Lidocaine; Translations: [LIDOCAINE] Drug Allergy 12-03-19 21 Other: See Comments [facility] Work Phone: (1 source) Pseudoephedrine Drug Allergy 12-03-19 21 [facility] Work Phone: (20 sources) meloxicam; Translations: [MELOXICAM SUBMICRONIZED] Drug Allergy 11-17-19 23 GI Upset [facility] (20 sources) Bupivacaine / EPINEPHrine; Translations: [BUPIVACAINE-EPINEPH RINE] Drug Allergy 07-11-20 23 Shortness of Breath, Angioedema [facility] Work Phone: (3 sources) Clotrimazole Drug Allergy 05-04-20 24 Hives [facility] (1 source) Amoxicillin Drug Allergy 05-07-20 24 [facility] (1 source) Brompheniramine Drug Allergy 05-07-20 24 [facility] (1 source) Bupivacaine Drug Allergy 05-07-20 24 [facility] (1 source) carbinoxamine Drug Allergy 05-07-20 [facility] (1 source) Clavulanate Drug Allergy 05-07-20 [facility] (1 source) Clotrimazole Drug Allergy 05-07-20 [facility] (1 source) Doxycycline Drug Allergy 05-07-20 [facility] (1 source) EPINEPHrine Drug Allergy 05-07-20 [facility] (1 source) Erythromycin Drug Allergy 05-07-20 [facility] (1 source) Lidocaine Drug Allergy 05-07-20 [facility] (1 source) meloxicam Drug Allergy 05-07-20 [facility] (1 source) Pseudoephedrine Drug Allergy 05-07-20 [facility] (20 sources) denosumab; Translations: [DENOSUMAB] Drug Allergy 11-12-19 Unknown [facility] (3 sources) Omeprazole; Translations: [OMEPRAZOLE] Drug Allergy 04-29-20 Other: See Comments [facility] (2 sources) Amitriptyline; Translations: [AMITRIPTYLINE] Drug Allergy 05-08-20 Other: See Comments [facility] Work Phone: Medications Current Medications Medication Drug Class(es) Dates Sig (Normalized) Sig (Original) ascorbic acid 500 mg oral tablet (20 sources) Vitamin C take 1 tablet by mouth once daily ascorbic acid, vitamin C, (VITAMIN C) 500 mg tablet Take 500 mg by mouth once daily. Active cefdinir 300 mg oral capsule (2 sources) Cephalosporin Antibacterial Start: 12-24-2024 End: 12-29-2024 take 1 capsule by mouth twice daily cefdinir (OMNICEF) 300 mg capsule Indications: Bacterial sinusitis Take 1 capsule by mouth two times a day for 5 days. 10 capsule 12/24/2024 12/29/2024 Active Start: 07-23-2022 End: 07-30-2022 take 1 capsule by mouth twice daily cefdinir (OMNICEF) 300 mg capsule Take 1 capsule by mouth twice daily for 7 days. 14 capsule 0 07/23/2022 07/30/2022 Active Comment on above: Take 1 capsule by [facility] twice daily for 7 days. celecoxib 200 mg oral capsule (7 sources) Nonsteroidal Anti-inflammatory Drug Start: 11-17-19 End: 05-16-20 take 1 capsule by mouth every twelve hours at mealtime as needed for pain celecoxib (CELEBREX) 200 mg capsule Indications: osteoarthritis , DUE TO SIDE EFFECTS OR INTOLERANCE, PATIENT HAS FAILED TRIAL AT LEAST 2 OTHER NSAIDS WITHIN THE PAST 6 MONTHS TAKE 1 PILL BY MOUTH WITH FOOD UP TO EVERY 12 HOURS NEEDED FOR PAIN 60 capsule 5 11/17/2022 05/16/2023 Active Comment on above: TAKE 1 PILL BY MOUTH WITH FOOD UP TO EVERY 12 HOURS NEEDED FOR PAIN Cranberry (20 sources) Non-Standardized Food Allergenic Extract, Non-Standardized Plant Allergenic Extract Start: 10-28-19 18 take 400 mg by mouth once daily Cranberry Active 400 MG PO DAILY October 28, 2017 1:00am CRANBERRY ORAL T maggie by mouth. Active CRANBERRY ORAL T maggie by mouth. 0 Active Comment on above: Take by mouth. DULoxetine 30 mg delayed release oral capsule (1 source) Serotonin and Norepinephrine Reuptake Inhibitor Start: 05-08-20 End: 06-07-20 take 1 capsule by mouth once daily DULoxetine DR (CYMBALTA) 30 mg capsule Take 1 capsule by mouth once daily. 30 capsule 05/08/2025 06/07/2025 Active fluconazole 150 mg oral tablet (1 source) Azole Antifungal Start: 05-04-20 24 End: 05-04-20 24 take 1 tablet by mouth once fluconazole (DIFLUCAN) 150 mg tablet Indications: Vaginal itching Take 1 tablet by mouth one time only for 1 dose. 1 tablet 0 05/04/2024 05/04/2024 Active gabapentin 100 mg oral capsule (15 sources) Anti-epileptic Agent Start: 01-18-20 25 End: 03-14-20 gabapentin (NEURONTIN) 100 mg capsule Take two tablets at bedtime 60 capsule 1 02/14/2025 Active Start: 01-17-2025 End: 02-14-2025 gabapentin (NEURONTIN) 400 m g capsule Indications: Postherpetic neuralgia Take 400 mg at bedtime along with 200 mg in the morning 30 capsule 1 01/17/2025 02/14/2025 Discontinued Start: 01-06-2025 End: 04-06-2025 take 1 capsule by mouth once daily at bedtime gabapentin (NEURONTIN) 300 mg capsule Indications: Herpes zoster without complication , Postherpetic neuralgia Take 1 capsule by mouth daily at bedtime for 90 days. 30 capsule 2 01/06/2025 01/17/2025 Discontinued Start: 12-24-2024 End: 01-07-2025 take 1 capsule by mouth twice daily gabapentin (NEURONTIN) 100 mg capsule Indications: Herpes zoster without complication Take 1 capsule by mouth two times a day for 14 days. 28 capsule 12/24/2024 01/06/2025 Discontinued methylPREDNISolone (1 source) Corticosteroid Start: 03-17-2022 End: 03-23-2022 methylPREDNISolone (MEDROL, KAREN,) 4 mg Dose-Pack Indications: Contact dermatitis and other eczema, due to unspecified cause Follow dosing instructions, take with food. 1 Package 0 03/17/2022 03/23/2022 Active Comment on above: Follow dosing instru ctions, take with food. 24 hr metoprolol succinate 25 mg extended release oral tablet (20 sources) beta-Adrenergic Gurinder Start: 05-06-2024 End: 04-28-2025 take 1 tablet by mouth once daily metoprolol succinate ER (TOPROL XL) 25 mg 24 hr tablet Indications: Nonrheumatic mitral valve regurgitation , Palpitations TAKE 1 TABLET BY MOUTH EVERY DAY 90 tablet 3 04/28/2025 Active metroNIDAZOLE 500 mg oral tablet (15 sources) Nitroimidazole Antimicrobial Start: 05-05-2024 End: 05-12-2024 take 1 tablet by mouth twice daily metroNIDAZOLE (FLAGYL) 500 mg tablet Take 1 tablet by mouth two times a day for 7 days. 14 tablet 0 05/05/2024 05/12/2024 Active Start: 04-26-2024 End: 06-24-2024 metroNIDAZOLE (METROGEL) 0.7 5 % Topical Gel APPLY TO THE FACE TWICE DAILY 04/26/2024 06/24/2024 Discontinued Multivitamin (Daily Multiple Vitamin) 1 EACH tablet (1 source) Start: 10-28-2017 take 1 tablet by mouth once daily Multivitamin (Daily Multiple Vitamin) 1 EACH tablet Active 1 EACH PO DAILY October 28, 2017 1:00am multivitamin ORAL tablet (20 sources) Start: 06-02-2011 take 1 tablet by mouth once daily multivitamin ORAL tablet Take 1 tablet by mouth once daily. 0 06/02/2011 Active Comment on above: Take 1 tablet by kristy th once daily. ondansetron 4 mg disintegrating oral tablet (2 sources) Serotonin-3 Receptor Antagonist Start: 10-28-2017 take 8 mg by mouth every eight hours as needed Ondansetron Active 8 MG PO EVERY 8 HOURS NEEDED October 28, 2017 1:00am tiZANidine 4 mg oral tablet (7 sources) Central alpha-2 Adrenergic Agonist Start: 11-17-2022 End: 05-16-2023 take 1 tablet by mouth at bedtime as needed for muscle spasms tiZANidine (ZANAFLEX) 4 mg tablet Indications: muscle spasm Take 1 tablet by mouth at bedtime as needed (muscle spasms). 30 tablet 5 11/17/2022 05/16/2023 Active Comment on above: Take 1 tablet by kristy th at bedtime as needed (muscle spasms). valACYclovir 1000 mg oral tablet (1 source) Herpesvirus Nucleoside Analog DNA Polymerase Inhibitor, Herpes Simplex Virus Nucleoside Analog DNA Polymerase Inhibitor, Herpes Zoster Virus Nucleoside Analog DNA Polymerase Inhibitor Start: 12-24-2024 End: 12-31-2024 take 1 tablet by mouth three times daily valACYclovir (VALTREX) 1 gram tablet Indications: Herpes zoster without complication Take 1 tablet by mouth three times a day for 7 days. 21 tablet 12/24/2024 12/31/2024 Active Completed/Discontinued Medications Medication Drug Class(es) Dates Sig (Normalized) Sig (Original) amitriptyline hydrochloride 10 mg oral tablet (2 sources) Tricyclic Antidepressant Start: 04-29-2025 End: 05-13-2025 take 1 tablet by mouth once daily at bedtime amitriptyline (ELAVIL) 10 mg tablet Indications: RUQ abdominal pain , Abnormal biliary HIDA scan , Postherpetic neuralgia Take 1 tablet by mouth daily at bedtime for 14 days. 14 tablet 04/29/2025 05/08/2025 Discontinued (Course of therapy completed) azithromycin 250 mg oral tablet (3 sources) Macrolide Antimicrobial Start: 11-22-2023 End: 11-27-2023 azithromycin (ZITHROMAX Z-KAREN) 250 mg tablet Take 2 tablets day one, then, 1 tablet daily until gone. 6 tablet 11/22/2023 11/27/2023 Start: 01-20-2023 End: 01-25-2023 azithromycin (ZITHROMAX Z-PA K) 250 mg tablet Take 2 tablets day one, then, 1 tablet daily until gone. 6 tablet 0 01/20/2023 01/25/2023 Active Comment on above: Take 2 tablets day o ne, then, 1 tablet daily until gone. AZO CRANBERRY (CRANBERRY EXT-C-L. SPOROGENES) 450-30-50 [id number] tab (20 sources) Start: 06-02-2011 End: 07-18-2023 AZO CRANBERRY (CRANBERRY EXT-C-L. SPOROGENES) 450-30-50 [id number] tab Take by mouth. 0 06/02/2011 07/18/2023 Discontinued (Discontinued by Patient) Start: 06-02-2011 AZO CRANBERRY (CRANBERRY EXT-C-L. SPOROGENES) 450-30-50 [id number] tab Take by mouth. 0 06/02/2011 Active Comment on above: Take by mouth. Cranberry Ext-C-L. Sporogenes ([id number] ITAMIN C) 450-30-50 [id number]-[id number] ORAL Tab (2 sources) Start: 06-02-20 11 Cranberry Ext-C-L. Sporogenes (CRANBERRY-PROBIOTICS- VITAMIN C) 450-30-50 fm-re-rlpvfxf ORAL Tab Take by mouth. 0 06/02/2011 Active Comment on above: Take by mouth. cyclobenzaprine hydrochloride 10 mg oral tablet (12 sources) Muscle Relaxant Start: 09-26-20 End: 11-17-19 take 0.5-1 tablets by mouth three times daily as needed for muscle spasms cyclobenzaprine (FLEXERIL) 10 mg tablet Indications: Left lumbar pain Take 0.5-1 tablets by mouth three times daily as needed for muscle spasm. 20 tablet 09/26/2022 11/17/2022 Discontinued Comment on above: Take 0.5-1 tablets b y mouth three times daily as needed for muscle spasm. diphenhydrAMINE (20 sources) Histamine-1 Receptor Antagonist End: 07-10-20 diphenhydramine HCl (UNISOM SLEEPMELTS ORAL) Take by mouth. 07/10/2023 Discontinued End: 07-10-2023 diphenhydramine HCl (UNISOM SLEEPMELTS ORAL) Take by mouth. 0 07/10/2023 Discontinued diphenhydramine HCl (UNISOM SLEEPMELTS ORAL) Take by mouth. 0 Active Comment on above: Take by mouth. estradiol 0.1 mg/ml vaginal cream (20 sources) Estrogen Start: 02-05-20 13 End: 11-12-19 estradiol 0.01 % (0.1 mg/g) vaginal cream Indications: Recurrent UTI Apply pea-sized amount to urethral opening twice a week. 1 Tube 1 02/04/2013 11/12/2024 Discontinued (Discontinued by another Health Care Provider) Comment on above: Apply pea-sized amou nt to urethral opening twice a week. famotidine 20 mg oral tablet (7 sources) Histamine-2 Receptor Antagonist Start: 05-07-20 End: 06-24-20 take 1 tablet by mouth twice daily famotidine (PEPCID) 20 mg tablet Take 1 tablet by mouth two times a day. 60 tablet 5 05/07/2024 06/24/2024 Discontinued fexofenadine hydrochloride 180 mg oral tablet (7 sources) Histamine-1 Receptor Antagonist Start: 05-07-20 End: 06-24-20 take 1 tablet by mouth twice daily fexofenadine (LILA) 180 mg tablet Take 1 tablet by mouth two times a day. 60 tablet 5 05/07/2024 06/24/2024 Discontinued fluticasone (9 sources) Corticosteroid End: 05-07-20 fluticasone propionate (FLONASE NASAL) Use 2 Sprays in the nose as needed. 0 05/07/2024 Discontinued fluticasone prop ionate (FLONASE NASAL) Use 2 Sprays in the nose as needed. 0 Active hydrogen peroxide 15 mg/ml mucous membrane topical solution (20 sources) Start: 08-04-2022 End: 07-10-2023 Hydrogen Peroxide (PEROXYL) 1.5 % soln Indications: Soreness of tongue Use 5 mL as instructed once daily. 236 mL 08/04/2022 07/10/2023 Discontinued Comment on above: Use 5 mL as instruct ed once daily. melatonin 1 mg oral tablet (20 sources) End: 06-24-2024 melatonin 1 mg tablet Take by mouth. 06/24/2024 Discontinued Comment on above: Take by mouth. meloxicam 15 mg oral tablet (11 sources) Nonsteroidal Anti-inflammatory Drug Start: 10-17-2022 End: 11-17-2022 take 1 tablet by mouth once daily meloxicam (MOBIC) 15 mg tablet Indications: Left hip pain , Lumbar pain Take 1 tablet by mouth once daily. 30 tablet 1 10/17/2022 11/17/2022 Discontinued Comment on above: Take 1 tablet by kristy th once daily. Nitrofurantoin (15 sources) Nitrofuran Antibacterial End: 05-04-2024 NITROFURANTOIN ORAL Take by mouth as needed. 05/04/2024 Discontinued End: 05-04-2024 NITROFURANTOIN ORAL Take by mouth as needed. 0 05/04/2024 Discontinued NITROFURANTOIN O RAL Take by mouth as needed. 0 Active Comment on above: Take by mouth as nee ded. omeprazole 40 mg delayed release oral capsule (7 sources) Proton Pump Inhibitor Start: End: take 1 capsule by mouth once daily omeprazole (PRILOSEC) 40 mg capsule Take 1 capsule by mouth once daily. 90 capsule 04/02/2025 04/29/2025 Discontinued (Course of therapy completed) End: 04-02-2025 take 1 capsule by mouth once daily omeprazole (PRILOSEC) 20 mg capsule Take 20 mg by mouth once daily. 04/02/2025 Discontinued predniSONE 10 mg oral tablet (10 sources) Start: 05-07-2024 End: 06-24-2024 predniSONE (DELTASONE) 10 mg tablet 4 tabs daily for 5 days then 3 tabs daily for 2 days then 2 tabs daily for 2 days then 1 tab daily for 2 dayst hen stop 32 tablet 05/07/2024 06/24/2024 Discontinued Start: 09-26-2022 End: 10-01-2022 take 2 tablets by mouth once daily predniSONE (DELTASONE) 20 mg tablet Indications: Left lumbar pain Take 2 tablets by mouth once daily for 5 days. 10 tablet 0 09/26/2022 10/01/2022 Active Start: 03-29-2022 End: 04-07-2022 predniSONE (DELTASONE) 10 mg tablet Take 4 tabs daily for 3 days, then 2 tabs daily for 3 days, then 1 tab daily for 3 days with food. 21 tablet 0 03/29/2022 04/07/2022 Active Start: 09-15-2021 End: 03-17-2022 take 2 tablets by mouth once daily predniSONE (DELTASONE) 20 mg tablet Indications: Myalgia Take 2 tablets by mouth once daily. 10 tablet 0 09/15/2021 03/17/2022 Discontinued (Course of therapy completed) Comment on above: Take 2 tablets by mo [facility] once daily. Take 4 tabs daily fo r 3 days, then 2 tabs daily for 3 days, then 1 tab daily for 3 days with food. Take 2 tablets by mo [facility] once daily for 5 days. traMADol hydrochloride 50 mg oral tablet (1 source) Opioid Agonist Start: 12-03-19 End: 12-05-19 take 50 mg by mouth every four hours as needed Tramadol Discontinued 50 MG PO EVERY 4 HOURS NEEDED 12 2 December 03, 2020 1:00am December 05, 2020 1:03am triamcinolone acetonide 1 mg/ml topical cream (1 source) Corticosteroid Start: 03-17-20 End: 03-31-20 triamcinolone acetonide (KENALOG) 0.1 % cream Indications: Contact dermatitis, unspecified contact dermatitis type, unspecified trigger Apply 1 application to affected area three times daily for 14 days. Apply sparingly to area for rash/itching. 45 g 1 03/17/2023 03/31/2023 Comment on above: Apply 1 application to affected area three times daily for 14 days. Apply sparingly to area for rash/itching. Problems Active Problems Problem Classification Problem Date Documented Da te Episodic/Chronic Abdominal pain (7 sources) Abdominal pain; Translations: [Unspecified abdominal pain] Onset: 02-13-2025 02-13-2025 Episodic Biliary tract disease (4 sources) Cholelithiasis without obstruction; Translations: [Calculus of gallbladder without cholecystitis without obstruction] Onset: 04-29-2025 03-24-2025 Episodic Diseases of mouth; excluding dental (1 source) Glossodynia; Translations: [Glossodynia] Episodic Disorders of lipid metabolism (1 source) Mixed hyperlipidemia; Translations: [Mixed hyperlipidemia] 07-18-2023 Chronic E Codes: Fall (1 source) Unspecified fall due to ice and snow, initial encounter; Translations: [Fall due to slipping on ice or snow] Episodic Fracture of upper limb (1 source) Closed fracture of distal end of radius; Translations: [Unspecified fracture of the lower end of left radius, initial encounter for closed fracture] Episodic Heart valve disorders (20 sources) Mitral valve regurgitation; Translations: [Nonrheumatic mitral (valve) insufficiency] Onset: 07-03-2023 06-30-2023 Chronic Nausea and vomiting (1 source) Postoperative nausea and vomiting; Translations: [Nausea with vomiting, unspecified] 10-26-2023 Episodic Neoplasms of unspecified nature or uncertain behavior (1 source) Neoplasm of uncertain behavior of thyroid gland; 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] 05-14-2024 Episodic Osteoporosis (20 sources) Osteoporosis; Translations: [Age-related osteoporosis without current pathological fracture] Onset: 04-01-2010 04-01-2010 Chronic Other acquired deformities (2 sources) Lumbar spondylolisthesis; Translations: [Spondylolisthesis, lumbar region] Episodic Other female genital disorders (1 source) Pruritus of vagina; Translations: [Other specified noninflammatory disorders of vagina] 05-04-2024 Episodic Other gastrointestinal disorders (1 source) Diarrhea; Translations: [Diarrhea, unspecified] 12-09-2024 Episodic Other injuries and conditions due to external causes (2 sources) Traumatic AND/OR non-traumatic injury; Translations: [Injury, unspecified, initial encounter] Episodic Other lower respiratory disease (3 sources) Cough; Translations: [Acute cough] Episodic Other lower respiratory disease (3 sources) Cough; Translations: [Acute cough] 01-20-2023 Episodic Other nutritional; endocrine; and metabolic disorders (1 source) Hypercalcemia; Translations: [Hypercalcemia] 11-13-2024 Chronic Other nutritional; endocrine; and metabolic disorders (1 source) Hypercalcemia; Translations: [Hypercalcemia] Onset: 11-27-2024 Chronic Other nutritional; endocrine; and metabolic disorders (1 source) Loss of appetite; Translations: [Anorexia] 01-06-2025 Episodic Other screening for suspected conditions (not mental disorders or infectious disease) (2 sources) Finding of thyroid gland; Translations: [Abnormal findings on diagnostic imaging of other specified body structures] 05-01-2024 Chronic Other screening for suspected conditions (not mental disorders or infectious disease) (20 sources) Patient encounter status; Translations: [Encounter for screening for lipoid disorders] Onset: 12-07-2023 06-30-2023 Episodic Other upper respiratory disease (1 source) Chronic rhinitis; Translations: [Unspecified sinusitis (chronic)] Chronic Other upper respiratory disease (1 source) Seasonal allergic rhinitis; Translations: [Other seasonal allergic rhinitis] 03-30-2024 Chronic Other upper respiratory disease (1 source) Nasal congestion; Translations: [Nasal congestion] 10-14-2024 Episodic Other upper respiratory infections (3 sources) Bacterial sinusitis; Translations: [Chronic sinusitis, unspecified] Onset: 12-24-2024 Chronic Other upper respiratory infections (4 sources) Acute upper respiratory infection; Translations: [Acute upper respiratory infection, unspecified] 11-22-2023 Episodic Otitis media and related conditions (1 source) Acute right otitis media; Translations: [Otitis media, unspecified, right ear] 11-22-2023 Episodic Spondylosis; intervertebral disc disorders; other back problems (3 sources) Lumbar spondylosis; Translations: [Spondylosis without myelopathy or radiculopathy, lumbar region] Onset: 02-02-2023 Chronic Thyroid disorders (20 sources) Non-toxic multinodular goiter; Translations: [Nontoxic multinodular goiter] Onset: 10-20-2010 12-17-2010 Chronic Unclassified (1 source) Acute cough; Translations: [Acute cough] Onset: 12-09-2024 Urinary tract infections (20 sources) Chronic interstitial cystitis; Translations: [Interstitial cystitis (chronic) without hematuria] Onset: 06-26-2009 03-11-2019 Chronic Viral infection (9 sources) Viral disease; Translations: [Viral infection, unspecified] Onset: 12-24-2024 12-09-2024 Episodic Past or Other Problems Problem Classification Problem Date Documented Da te Episodic/Chronic Allergic reactions (20 sources) Contact dermatitis; Translations: [Unspecified contact dermatitis, unspecified cause] Onset: 04-21-2012 Episodic Bacterial infection; unspecified site (1 source) Other specified bacterial agents as the cause of diseases classified elsewhere; Translations: [Bacterial sinusitis] Onset: 12-24-2024 Episodic Cardiac dysrhythmias (20 sources) Palpitations; Translations: [Palpitations] Onset: 07-03-2023 06-30-2023 Episodic Fluid and electrolyte disorders (2 sources) Hyperkalemia; Translations: [Hyperkalemia] Onset: 11-27-2024 11-13-2024 Episodic Heart valve disorders (20 sources) Heart murmur; Translations: [Cardiac murmur, unspecified] Onset: 10-20-2010 10-20-2010 Episodic Malaise and fatigue (3 sources) Fatigue; Translations: [Other fatigue] Onset: 02-14-2025 06-30-2023 Episodic Nonspecific chest pain (20 sources) Chest pain; Translations: [Chest pain, unspecified] Onset: 07-03-2023 06-30-2023 Episodic Other acquired deformities (1 source) Spondylolisthesis, lumbar region; Translations: [Spondylolisthesis of lumbar region] Onset: 02-02-2023 Episodic Other and unspecified benign neoplasm (20 sources) Benign neoplasm of colon; Translations: [Benign neoplasm of colon, unspecified] Onset: 06-04-2008 06-04-2008 Episodic Other connective tissue disease (20 sources) Ganglion cyst; Translations: [Ganglion, unspecified site] Onset: 03-11-2019 03-11-2019 Episodic Other inflammatory condition of skin (20 sources) Itching of skin; Translations: [Pruritus, unspecified] Onset: 04-21-2012 04-21-2012 Episodic Other inflammatory condition of skin (20 sources) Pruritus, unspecified; Translations: [Unspecified pruritic disorder] Onset: 04-21-2012 04-21-2012 Episodic Other non-traumatic joint disorders (20 sources) Hip pain; Translations: [Pain in left hip] Onset: 10-21-2022 Episodic Other skin disorders (20 sources) Eruption; Translations: [Rash and other nonspecific skin eruption] Onset: 04-21-2012 Resolved: 05-07-2024 04-21-2012 Episodic Spondylosis; intervertebral disc disorders; other back problems (20 sources) Lumbago; Translations: [Left lumbar pain] Onset: 10-21-2022 Episodic Results Test Name Value Interpretation [place] E[place]ography Echocardiography Report: Transthoracic Echo [facility] Date of service: 07/10/2025 10:19:56 AM COORDINATOR Ordering physician: BETY IGLESIAS Exam indication: Routine surveillance of moderate or severe valvular regurgitation (>1yr) Technologist: Bette Hargrove [facility] Interpreting physician: Ilene Devi MD PATIENT: Name: MRS. LAURYN BANG : 1950 Age: 74 years Gender: F Primary rhythm: sinus. Height: 157.50 cm BSA: 1.78 m Weight: 72.58 kg BMI: 29.3 kg/m Heart rate 68 bpm Blood pressure 121/70 mmHg Color Doppler was utilized to interrogate the cardiac valves assessed and spectral Doppler was utilized to determine the flow velocities and pressure gradients reported in this exam. Myocardial strain analysis was performed in this exam to aid in the assessment of cardiac function. MEASUREMENTS: Value Indexed Normal Max aortic dimension 2.7 cm Ao < 3.8 Left atrial volume 161 ml (biplane A-L) 90 ml/m Helen <= 34 LV ID (diastole) 5.0 cm (2D) 2.83 cm/m LV ID (systole) 3.3 cm (2D) 1.82 cm/m IVS, leaflet tips 1.1 cm (2D) Posterior wall thickness 1.1 cm (2D) Left ventricular mass 217 g (2D) 122 g/m Global peak long strain -19.6 % LV stroke volume 78 ml (2D biplane) LV end diastolic volume 138 ml (2D biplane) 77.5 ml/m 29<=EDVi<62 LV end systolic volume 60 ml (2D biplane) 33.5 ml/m Ejection Fraction 57 % (2D biplane) EF > 54 FINDINGS: LEFT VENTRICLE The left ventricle is moderately dilated. Left ventricular systolic function is normal. Global LV myocardial strain is normal. Left ventricular diastolic function was not evaluated due to >2+ MR. Mitral annular lateral E/e': 5.3. Mitral annular septal E/e': 8.9. Wall Motion: All scored segments are normal. RIGHT VENTRICLE The right ventricle is normal in size. Right ventricular systolic function is normal. RV systolic tissue Doppler velocity is 12.0 cm/s. Tricuspid annular displacement is 1.9 cm. Estimated right ventricular systolic pressure is 30 mmHg consistent with normal pulmonary artery pressures. Estimated right atrial pressure is 3 mmHg (although IVC not seen). LEFT ATRIUM The left atrial cavity is severely dilated. RIGHT ATRIUM The right atrial cavity is normal in size (RA area = 11.3 cm ). MITRAL VALVE There is moderately severe (3+) holosystolic mitral valve regurgitation due to prolapse. There is a anteriorly directed regurgitant jet. There is no thickening. There is prolapse of the anterior and posterior mitral leaflets. Regurgitant orifice area (PISA) is 0.36 cm . The pressure half time is 42 msec. The peak mitral E/A ratio is 2.04. The average mitral E/e' ratio is 7.1. The mitral flow deceleration time is 143 msec. TRICUSPID VALVE The tricuspid valve leaflets are structurally normal. There is mild (1+ - 2+) tricuspid valve regurgitation. AORTIC VALVE The aortic valve cusps are structurally normal. There is trace aortic valve regurgitation. Tricuspid aortic valve. The peak gradient is 9 mmHg (peak velocity = 146.8 cm/s). PULMONIC VALVE The pulmonic valve cusps are structurally normal. There is trace pulmonic valve regurgitation. AORTA The visualized aorta is normal in size. Measurements - Mid ascending aorta 2.7 cm. INTERATRIAL SEPTUM The interatrial septum is mobile. There is no evidence of intracardiac shunting as detected by Doppler. PERICARDIUM There is no pericardial effusion. CONCLUSIONS: - Exam indication: Routine surveillance of moderate or severe valvular regurgitation (>1yr) - The left ventricle is moderately dilated. Left ventricular systolic function is normal. EF = 57 5% (2D biplane) Left ventricular diastolic function was not evaluated due to >2+ MR. - The right ventricle is normal in size. Right ventricular systolic function is normal. - The left atrial cavity is severely dilated. - There is at least moderately severe (3+) mitral holosystolic valve regurgitation due to MV prolapse. MR severity likely underestimated due to eccentricity of the MR jet. Coanda effect noted. Regurgitant orifice area (PISA) is 0.36 cm . - Exam was compared with the prior echocardiographic exam performed on 07/19/2024. Prior EF 56%. Prior echo showed moderately severe MR with PISA 0.28 cm2. * * * Final * * * [employer] Image : [id number] amicsSISUID [facility] 04-[facility] CNOV Office Visit (FAMPWS ) LAURYN BANG ([id number]) 1950 F Date Time Provider Department [facility]/29[facility]25 9[facility]00 [facility] your visit today, we recorded the following information about you: Pulse Blood pressure Weight 64/minute 130/76 70.3 kg Perry Bautista MD 04/29/2025 9:33 AM Signed Chief Complaint Patient presents with: Follow Up: Discuss results Recording using [employer] software for draft documentation of the visit was discussed with the patient/authorized dairy supplies sales representative; all questions welcomed and answered. Patient/authorized dairy supplies sales representative agreed to proceed HPI Lauryn Bang is a 74 year old female who presents here today for Above Complaints. Chronic Abdominal Pain: - Persistent abdominal pain since December, initially preceding a shingles outbreak by two days. - Pain described as a stabbing sensation, localized to the RUQ, with occasional radiation to the back. - Recent episode of sharp pain extending under the ribs, triggered by standing at the sink. - Pain is worse in the morning and with prolonged standing; not constant but frequently present. - Described as a pressing and sharp sensation, rated 3/10 currently and 4/10 upon waking. - Aggravated by standing and talking; not consistently relieved by any specific measures. - Associated with deep burping at night, not typical of her usual heartburn. - Takes Tums prophylactically at night to prevent heartburn. - Denies nausea, emesis, diarrhea, hematochezia, melena, dysuria, hematuria, or abnormal vaginal bleeding/discharge. - No relief from gabapentin, which caused drowsiness and constipation. - No known trauma or injury to the area. - Denies consumption of fatty foods. Shingles: - Shingles outbreak in December, with pain beginning two days prior to the rash. - Rash still causes burning and itching; pain from shingles has decreased but not resolved. - Pain from shingles believed to be related to current abdominal pain. HIDA Scan: - Recent HIDA scan showed a hyperactive gallbladder with an ejection fraction of 90%. - Ultrasound revealed benign liver cysts and gallstones without inflammation; spleen appeared normal. - Blood tests ordered by Dinh Barksdale were normal, including checks for pancreatitis, blood counts, and kidney/liver function. Medication Intolerance: - Experienced severe dehydration with omeprazole, leading to discontinuation after one dose. - No issues with Prilosec in the past. Past medical history, appointments, medications, allergies reviewed. Previous Medical History PAST MEDICAL HISTORY Diagnosis Date Acid reflux Benign neoplasm of colon Diaphragmatic hernia without mention of obstruction or gangrene takes tums Frequent UTI Dr. 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 Multiple thyroid nodules Pneumonia, viral Post herpetic neuralgia 01/17/2025 Shingles Symptomatic menopausal or female climacteric states hot flashes, night sweats Previous Surgical History PAST SURGICAL HISTORY Procedure Laterality Date COLSC FLX W/RMVL OF TUMOR POLYP LESION SNARE TQ 06/04/2008 EXC LESION TDN SHTH/JT CAPSL HAND/FNGR Left 03/20/2019 Excision of left thumb ganglion cyst THYROID RIGHT FINE NEEDLE ASPIRATION Right 05/06/2024 UNSPECIFIED ORAL SURGERY PROCEDURE, BY REPORT [place] teeth extracted UNSPECIFIED ORAL SURGERY PROCEDURE, BY REPORT 12/2016 tooth extracted VAGINAL HYSTERECTOMY UTERUS 250 GM/< 07/29/2008 Hysterectomy, vaginal w/ cystocele repair, removed one ovary Family History FAMILY HISTORY Problem Relation Age of Onset Breast Cancer Mother CHF age of breast cancer 60's Breast Cancer Sister late 50's, Cancer Sister BRAIN age 70 Breast Cancer Maternal Grandmother Patient Allergies ALLERGIES Allergen Reactions Marcaine-Epinephrin* Shortness of Breath, Angioedema Tolerates Lidocaine/Epinephrine Augmentin [Amoxicil* Diarrhea Bactrim [Sulfametho* GI Upset Doxycycline Rash Erythromycin unknown Meloxicam Submicron* GI Upset Omeprazole Other: See Comments Dry eyes, dry mouth Prolia [Denosumab] Unknown Leg aching Rondec [Bromphenira* Unknown Current Medications Current Outpatient Medications on File Prior to Visit Medication Sig metoprolol succinate ER (TOPROL XL) 25 mg 24 hr tablet TAKE 1 TABLET BY MOUTH EVERY DAY omeprazole (PRILOSEC) 40 mg capsule Take 1 capsule by mouth once daily. ascorbic acid, vitamin C, (VITAMIN C) 500 mg tablet Take 500 mg by mouth once daily. CRANBERRY ORAL Take by mouth. multivitamin ORAL tablet Take 1 tablet by mouth once daily. No current facility-administered medications on file prior to visit. Social History Social History Tobacco Use Smoking status: Never Smokeless tobacco: Never (more content not included)... Normal [facility] Biliary ducts and Gallbla dder Views for patency of biliary structures and ejection fraction W sincalide and W radionuclide Annette 03-24-2025 IMPRESSION: * Hyperkinetic gallbladder functional response/EF. Clinical correlation is recommended. * Patent CBD. Accident Examiner: CAMI Transcribe Date/Time: Mar 24 2025 5:35P Dictated by : NICK MIRZA MD This examination was interpreted and the report reviewed and electronically signed by: NICK MIRZA MD on Mar 24 2025 5:35PM [facility] DIVISION OF RADIOLOGY * * *Final Report* * * DATE OF EXAM: Mar 24 2025 2:57PM [address] HEPATOBILIARY W EF AND/OR RX / PROCEDURE REASON: Calculus of gallbladder without cholecystitis without obstruction * * * * Physician Interpretation * * * * HEPATOBILIARY SCAN WITH GALLBLADDER EJECTION FRACTION: CLINICAL HISTORY: Right upper quadrant pain. TECHNIQUE: 5.7 mCi Tc-99m Choletec IV followed by 60 minutes of abdominal imaging This was followed by 1.4 mcg CCK IV, and additional imaging to calculate a gallbladder ejection fraction FINDINGS: There is prompt and homogeneous uptake by the liver, which appears grossly normal in size and shape. Gallbladder, and proximal small bowel activity are visualized, indicating cystic duct and common bile duct patency. After CCK, the calculated gallbladder ejection fraction is 90% (normal > 35% <80%). DIVISION OF RADIOLOGY Provider, Nayana Awilda [facility] - 03/24/2025 * * *Final Report* * * DATE OF EXAM: Mar 24 2025 2:57PM [facility] [address] [facility] HEPATOBILIARY W EF AND/OR RX / PROCEDURE REASON: Calculus of gallbladder without cholecystitis without obstruction * * * * Physician Interpretation * * * * HEPATOBILIARY SCAN WITH GALLBLADDER EJECTION FRACTION: CLINICAL HISTORY: Right upper quadrant pain. TECHNIQUE: 5.7 mCi Tc-99m Choletec IV followed by 60 minutes of abdominal imaging This was followed by 1.4 mcg CCK IV, and additional imaging to calculate a gallbladder ejection fraction FINDINGS: There is prompt and homogeneous uptake by the liver, which appears grossly normal in size and shape. Gallbladder, and proximal small bowel activity are visualized, indicating cystic duct and common bile duct patency. After CCK, the calculated gallbladder ejection fraction is 90% (normal > 35% <80%). IMPRESSION IMPRESSION: * Hyperkinetic gallbladder functional response/EF. Clinical correlation is recommended. * Patent CBD. Accident Examiner: [facility] Transcribe Date/Time: Mar 24 2025 5:35P Dictated by : NICK MIRZA MD This examination was interpreted and the report reviewed and electronically signed by: NICK MIRZA MD on Mar 24 2025 5:35PM [facility] Radiology Study observation (narrative) [facility] Biliary ducts and Gallbla dder Views for patency of biliary structures and ejection fraction W sincalide and W radionuclide IVOrdered By: [facility] Provider on 03-24-2025 [facility] [place] HEPATOBILIARY W EF AND/OR RXon 03-24-2025 [place] HEPATOBILIARY W EF AND/OR RX * * *Final Report* * * DATE OF EXAM: Mar 24 2025 2:57PM [facility] 002 - [place] HEPATOBILIARY W EF AND/OR RX / PROCEDURE REASON: Calculus of gallbladder without cholecystitis without obstruction * * * * Physician Interpretation * * * * HEPATOBILIARY SCAN WITH GALLBLADDER EJECTION FRACTION: CLINICAL HISTORY: Right upper quadrant pain. TECHNIQUE: 5.7 mCi Tc-99m Choletec IV followed by 60 minutes of abdominal imaging This was followed by 1.4 mcg CCK IV, and additional imaging to calculate a gallbladder ejection fraction FINDINGS: There is prompt and homogeneous uptake by the liver, which appears grossly normal in size and shape. Gallbladder, and proximal small bowel activity are visualized, indicating cystic duct and common bile duct patency. After CCK, the calculated gallbladder ejection fraction is 90% (normal > 35% <80%). IMPRESSION: * Hyperkinetic gallbladder functional response/EF. Clinical correlation is recommended. * Patent CBD. Accident Examiner: [facility] Transcribe Date/Time: Mar 24 2025 5:35P Dictated by : NICK MIRZA MD This examination was interpreted and the report reviewed and electronically signed by: NICK MIRZA MD on Mar 24 2025 5:35PM EST [id number] Normal [facility] US ABD RIGHT UPPER QUADRANTo n 02-25-2025 US ABD RIGHT UPPER QUADRANT * * *Final Report* * * DATE OF EXAM: Feb 25 2025 8:45AM [facility] [id number] - US ABD RIGHT UPPER QUADRANT / PROCEDURE REASON: Generalized abdominal pain * * * * Physician Interpretation * * * * EXAMINATION: RIGHT UPPER QUADRANT ULTRASOUND CLINICAL HISTORY: Abdominal pain. TECHNIQUE: Sonography of the right upper quadrant was performed. Images were obtained and stored in a permanent archive. MQ: URUQ_2 COMPARISON: None. RESULT: Pancreas: Normal sonographic appearance. Portions obscured: tail Liver: Echotexture: Normal, homogeneous. Echogenicity: Normal Surface contour: Smooth Lesions: Several cysts, largest in the left lobe with thin septation measuring 4.7 cm. Biliary: No intrahepatic biliary duct dilation. CBD: 0.6 cm at the hilum. Gallbladder: Normal caliber -Contents: Cholelithiasis -Wall: Normal -Other: No pericholecystic fluid. Right Kidney: No hydronephrosis. Few cysts. Ascites: None. Spleen: The length of the spleen is 10.9 cm. There are no splenic lesions. IMPRESSION: Benign hepatic cysts. Cholelithiasis without changes of cholecystitis. No splenomegaly Accident Examiner: CAMI Transcribe Date/Time: Feb 28 2025 6:49A Dictated by : JAMEY MARKS MD This examination was interpreted and the report reviewed and electronically signed by: JAMEY MARKS MD on Feb 28 2025 6:56AM EST [id number] Normal [facility] US ABD SPLEEN -NBon 02-26-20 US ABD SPLEEN -NB * * *Final Report* * * DATE OF EXAM: Feb 25 2025 8:45AM [facility] [id number] - US ABD SPLEEN -NB / PROCEDURE REASON: Generalized abdominal pain * * * * Physician Interpretation * * * * EXAMINATION: RIGHT UPPER QUADRANT ULTRASOUND CLINICAL HISTORY: Abdominal pain. TECHNIQUE: Sonography of the right upper quadrant was performed. Images were obtained and stored in a permanent archive. MQ: URUQ_2 COMPARISON: None. RESULT: Pancreas: Normal sonographic appearance. Portions obscured: tail Liver: Echotexture: Normal, homogeneous. Echogenicity: Normal Surface contour: Smooth Lesions: Several cysts, largest in the left lobe with thin septation measuring 4.7 cm. Biliary: No intrahepatic biliary duct dilation. CBD: 0.6 cm at the hilum. Gallbladder: Normal caliber -Contents: Cholelithiasis -Wall: Normal -Other: No pericholecystic fluid. Right Kidney: No hydronephrosis. Few cysts. Ascites: None. Spleen: The length of the spleen is 10.9 cm. There are no splenic lesions. IMPRESSION: Benign hepatic cysts. Cholelithiasis without changes of cholecystitis. No splenomegaly Accident Examiner: [facility] Transcribe Date/Time: Feb 28 2025 6:49A Dictated by : JAMEY MARKS MD This examination was interpreted and the report reviewed and electronically signed by: JAMEY MARKS MD on Feb 28 2025 6:56AM EST [id number] Normal [facility] CNOVon 02-14-2025 CNOV Office Visit (INTMWS ) MIKELLAURYN LEWIS Ana ([id number]) 1950 F Date Time Provider Department 02/14/25 1:40 PM FANTA TRAMMELL INTMWS During your visit today, we recorded the following information about you: Pulse Blood pressure Weight 97/minute 124/72 71 kg Fanta Trammell APRN.METALLURGICAL ENGINEERING TECHNICIAN 02/14/2025 2:11 PM Signed SUBJECTIVE Lauryn Perez Beti is a 74 year old female here today for a check up on her medical problems. Chief Complaint Patient presents with: Pain: upper right abdomen on going since 12/20/24 when she had shingles. Was seen in Urgent Care on 02/13/25 and was recommend that she see primary as they had nothing else to offer for her. CIRO Velia is a 74-year-old female presenting for follow-up after being seen in [facility] yesterday for abdominal pain. Velia reports a 2-month history of right upper, middle, and lower abdominal discomfort that began around 12/20 or 12/21, coinciding with the onset of shingles. The pain has been persistent and is exacerbated by certain movements. She describes three types of pain: a constant pressure-like sensation, intermittent sharp stabbing pain, and a squeezing ache that occurs with walking, resembling muscle strain. She denies performing any physical activities that could cause such strain. She also reports deep burping, distinct from her usual heartburn, and significant fatigue, feeling totally wiped out despite sleeping well at night. She denies nausea, emesis, or changes in bowel habits. Her appetite has improved after a period of decline due to shingles and multiple preceding illnesses, including the flu, norovirus, and an upper respiratory infection since 10/10. Velia has been taking gabapentin and metoprolol at night. She recently reduced her gabapentin dose from 400 mg to 200 mg at night due to concerns about constipation, which has since improved. She attributes her fatigue to both her recent illnesses and extreme stress related to her daughter's colorectal cancer treatment and her [id number]'s hospitalizations. Her medications were reviewed today and her list is now up to date. Medications Current Outpatient Medications Medication Sig gabapentin (NEURONTIN) 100 mg capsule Take two tablets at bedtime omeprazole (PRILOSEC) 20 mg capsule Take 20 mg by mouth once daily. ascorbic acid, vitamin C, (VITAMIN C) 500 mg tablet Take 500 mg by mouth once daily. metoprolol succinate ER (TOPROL XL) 25 mg 24 hr tablet Take 1 tablet by mouth once daily. CRANBERRY ORAL Take by mouth. multivitamin ORAL tablet Take 1 tablet by mouth once daily. No current facility-administered medications for this visit. ALLERGIES Allergen Reactions Marcaine-Epinephrin* Shortness of Breath, Angioedema Tolerates Lidocaine/Epinephrine Augmentin [Amoxicil* Diarrhea Bactrim [Sulfametho* GI Upset Doxycycline Rash Erythromycin unknown Meloxicam Submicron* GI Upset Prolia [Denosumab] Unknown Leg aching Rondec [Bromphenira* Unknown ACTIVE PROBLEM LIST Encounter for Screening for Malignant Neoplasm of Colon - 12/07/2023 Palpitations - 07/03/2023 Nonrheumatic Mitral Valve Regurgitation - 07/03/2023 Other Chest Pain - 07/03/2023 Lumbar Pain - 10/21/2022 Left Hip Pain - 10/21/2022 Enlarged Thyroid Gland - 10/10/2019 Multiple Thyroid Nodules - 10/10/2019 Ganglion Cyst - 03/11/2019 Eczematous Dermatitis - 04/21/2012 Contact Dermatitis and Other Eczema, Due to Unspecified Cause - 04/21/2012 Pruritus - 04/21/2012 Urticaria - 04/21/2012 Heart Murmur - 10/20/2010 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 Chronic Interstitial Cystitis - 06/26/2009 Benign Neoplasm of Colon - 06/04/2008 Social History Tobacco Use Smoking status: Never Smokeless tobacco: Never Vaping Use Vaping status: Never Used Substance Use Topics Alcohol use: Yes Comment: Seldom Drug use: No Constitutional: (+) fatigue Gastrointestinal: (+) right upper abdominal pain, (+) belching, (-) nausea, (-) vomiting, (-) bowel habit changes Neurological: (+) sciatica, (+) neuralgia (shingles-related) Psychiatric: (+) stress OBJECTIVE BP 124/72 Pulse 97 Wt 156 lb 8.4 oz (71.0kg) SpO2 96% Physical Exam Vitals and nursing note reviewed. Constitutional: General: She is awake. She is not in acute distress. Appearance: Normal appearance. She is well-developed and well-groomed. She is not ill-appearing, toxic-appearing or diaphoretic. HENT: Head: Normocephalic. Right Ear: External ear normal. Left Ear: External ear normal. Nose: Nose normal. Eyes: General: Vision grossly intact. Conjunctiva/sclera: Conjunctivae normal. Pupils: Pupils are equal, round, and reactive to light. Neck: Vascular: No JVD. Trachea: Trachea normal. Pulmonary: Effort: Pulmonary effort is normal. No (more content not included)... Normal [facility] CBC W Auto Differential pane l (Bld)on 02-13-2025 Basophils (Bld) [#/Vol] 0.04 10*3/uL [facility] Basophils/100 WBC (Bld) 0.7 % C [facility] Differential cell count method Nom (Bld) Auto [facility] Eosinophils (Bld) [#/Vol] 0.17 10*3/uL [facility] Eosinophils/100 WBC (Bld) 3.1 % [facility] Erythrocyte distribution width (RBC) [Ratio] 14.4 % 11.5 - 15.0 % [facility] Hematocrit (Bld) [Volume fraction] 42.9 % 36.0 - 46.0 % [facility] Hemoglobin (Bld) [Mass/Vol] 13.9 g/dL 11.5 - 15.5 g/dL [facility] Immature granulocytes (Bld) [#/Vol] [facility] Immature granulocytes/100 WBC (Bld) 0.4 % [facility] Lymphocytes (Bld) [#/Vol] 2.3 10*3/uL [facility] Lymphocytes/100 WBC (Bld) 41.3 % [facility] MCH (RBC) [Entitic mass] 29.8 pg 26.0 - 34.0 pg [facility] MCHC (RBC) [Mass/Vol] 32.4 g/dL 30.5 - 36.0 g/dL [facility] MCV (RBC) [Entitic vol] 91.9 fL 80.0 - 100.0 fL [facility] Monocytes (Bld) [#/Vol] 0.43 10*3/uL [facility] Monocytes/100 WBC (Bld) 7.7 % [facility] Neutrophils (Bld) [#/Vol] 2.61 10*3/uL [facility] Neutrophils/100 WBC (Bld) 46.8 % [facility] Nucleated RBC (Bld) [#/Vol] [facility] Nucleated RBC/100 WBC (Bld) [Ratio] 0 % /100 WBC [facility] Platelet mean volume (Bld) [Entitic vol] 11.6 fL 9.0 - 12.7 fL [facility] Platelets (Bld) [#/Vol] 197 10*3/uL [facility] RBC (Bld) [#/Vol] 4.67 10*6/uL 3.90 - 5.2 0 m/uL [facility] WBC (Bld) [#/Vol] 5.57 10*3/uL [facility] Basophils (Bld) [#/Vol] 0.04 10*3/uL Normal <0.11 [facility] Comment on above: Order Comment: Speci men Type: BLOOD SPECIMENOrdering Facility: [facility] Address: [address] [place] [address] Performed By: #### 5 7021-8 ####[facility]ITALWDCLIA [id number] [place] [address] [place] Basophils/100 WBC (Bld) 0.7 % Normal [facility] Comment on above: Order Comment: Speci men Type: BLOOD SPECIMENOrdering Facility: [facility] Address: [address] [place] [address] Performed By: #### 5 7021-8 ####[facility] [id number] [place] [address] [place] Differential cell count method Nom (Bld) Auto Normal [facility] Comment on above: Order Comment: Speci men Type: BLOOD SPECIMENOrdering Facility: [facility] Address: [address] [place] [address] Performed By: #### 5 7021-8 ####[facility] [id number] [place] [address] [place] Eosinophils (Bld) [#/Vol] 0.17 10*3/uL Normal <0.46 [facility] Comment on above: Order Comment: Speci men Type: BLOOD SPECIMENOrdering Facility: [facility] Address: [address] [place] [address] Performed By: #### 5 7021-8 ####[facility] [id number] [place] [address] [place] Eosinophils/100 WBC (Bld) 3.1 % Normal [facility] Comment on above: Order Comment: Speci men Type: BLOOD SPECIMENOrdering Facility: [facility] Address: [address] [place] [address] Performed By: #### 5 7021-8 ####[facility]ILLCH[facility]HERWNCLIA [id number] [place] [address] [place] Erythrocyte distribution width (RBC) [Ratio] 14.4 % Normal 11.5-15.0 [facility] Comment on above: Order Comment: Speci men Type: BLOOD SPECIMENOrdering Facility: [facility] Address: [address] [place] [address] Performed By: #### 5 7021-8 ####[facility]ITALNCLIA [id number] [place] [address] [place] Hematocrit (Bld) [Volume fraction] 42.9 % Normal 36.0-46.0 [facility] Comment on above: Order Comment: Speci men Type: BLOOD SPECIMENOrdering Facility: [facility] Address: [address] [place] [address] Performed By: #### 5 7021-8 ####[facility]ITALNCLIA [id number] [place] [address] [place] Hemoglobin (Bld) [Mass/Vol] 13.9 g/dL Normal 11.5-15.5 [facility] Comment on above: Order Comment: Speci men Type: BLOOD SPECIMENOrdering Facility: [facility] Address: [address] [place] [address] Performed By: #### 5 7021-8 ####[facility]PITALWNCLIA [id number] [place] [address] [place] Immature granulocytes (Bld) [#/Vol] 10*3/uL Normal <0.10 [facility] Comment on above: Order Comment: Speci men Type: BLOOD SPECIMENOrdering Facility: [facility] Address: [address] [place] [address] Performed By: #### 5 7021-8 ####[facility]US[facility] [id number] [place] [address] [place] Immature granulocytes/100 WBC (Bld) 0.4 % Normal [facility] Comment on above: Order Comment: Speci men Type: BLOOD SPECIMENOrdering Facility: [facility] Address: [address] [place] [address] Performed By: #### 5 7021-8 ####[facility] [id number] [place] [address] [place] Lymphocytes (Bld) [#/Vol] 2.30 10*3/uL Normal 1.00-4.00 [facility] Comment on above: Order Comment: Speci men Type: BLOOD SPECIMENOrdering Facility: [facility] Address: [address] [place] [address] Performed By: #### 5 7021-8 ####[facility] [id number] [place] [address] [place] Lymphocytes/100 WBC (Bld) 41.3 % Normal [facility] Comment on above: Order Comment: Speci men Type: BLOOD SPECIMENOrdering Facility: [facility] Address: [address] [place] [address] Performed By: #### 5 7021-8 ####[facility] [id number] [place] [address] [place] MCH (RBC) [Entitic mass] 29.8 pg Normal 26.0-34.0 [facility] Comment on above: Order Comment: Speci men Type: BLOOD SPECIMENOrdering Facility: [facility] Address: [address] [place] [address] Performed By: #### 5 7021-8 ####[facility] [id number] [place] [address] [place] MCHC (RBC) [Mass/Vol] 32.4 g/dL Normal 30.5-36.0 [facility] Comment on above: Order Comment: Speci men Type: BLOOD SPECIMENOrdering Facility: [facility] Address: [address] [place] [address] Performed By: #### 5 7021-8 ####[facility] HOSPITALNCAMELIA [id number] [place] [address] [place] MCV (RBC) [Entitic vol] 91.9 fL Normal 80.0-100.0 [facility] Comment on above: Order Comment: Speci men Type: BLOOD SPECIMENOrdering Facility: [facility] Address: [address] [place] [address] Performed By: #### 5 7021-8 ####[facility]OSPITALNCOGDEN [facility] [id number] [place] [address] [place] Monocytes (Bld) [#/Vol] 0.43 10*3/uL Normal <0.87 [facility] Comment on above: Order Comment: Speci men Type: BLOOD SPECIMENOrdering Facility: [facility] Address: [address] [place] [address] Performed By: #### 5 7021-8 ####[facility]ITALNCLIA [id number] [place] [address] [place] Monocytes/100 WBC (Bld) 7.7 % Normal [facility] Comment on above: Order Comment: Speci men Type: BLOOD SPECIMENOrdering Facility: [facility] Address: [address] [place] [address] Performed By: #### 5 7021-8 ####[facility]ITALNCLIA [id number] [place] [address] [place] Neutrophils (Bld) [#/Vol] 2.61 10*3/uL Normal 1.45-7.50 [facility] Comment on above: Order Comment: Speci men Type: BLOOD SPECIMENOrdering Facility: [facility] Address: [address] [place] [address] Performed By: #### 5 7021-8 ####[facility] MINGOCLARKSVILLEBUFFYLIA [id number] [place] [address] [place] Neutrophils/100 WBC (Bld) 46.8 % Normal [facility] Comment on above: Order Comment: Speci men Type: BLOOD SPECIMENOrdering Facility: [facility] Address: [address] [place] [address] Performed By: #### 5 7021-8 ####[facility] CAMPUSLIA [id number] [place] [address] [place] Nucleated RBC (Bld) [#/Vol] 10*3/uL Normal <0.01 [facility] Comment on above: Order Comment: Speci men Type: BLOOD SPECIMENOrdering Facility: [facility] Address: [address] [place] [address] Performed By: #### 5 7021-8 ####[facility] [id number] [place] [address] [place] Nucleated RBC/100 WBC (Bld) [Ratio] 0.0 /100 WBC Normal [facility] Comment on above: Order Comment: Speci men Type: BLOOD SPECIMENOrdering Facility: [facility] Address: [address] [place] [address] Performed By: #### 5 7021-8 ####[facility] CAMPUSLIA [id number] [place] [address] [place] Platelet mean volume (Bld) [Entitic vol] 11.6 fL Normal 9.0-12.7 [facility] Comment on above: Order Comment: Speci men Type: BLOOD SPECIMENOrdering Facility: [facility] Address: [address] [place] [address] Performed By: #### 5 7021-8 ####[facility] CAMPUSLIA [id number] [place] [address] [place] Platelets (Bld) [#/Vol] 197 10*3/uL Normal 150-400 [facility] Comment on above: Order Comment: Speci men Type: BLOOD SPECIMENOrdering Facility: [facility] Address: [address] [place] [address] Performed By: #### 5 7021-8 ####[facility]ITALNCLIA [id number] [place] [address] [place] RBC (Bld) [#/Vol] 4.67 10*6/uL Normal 3.90-5.20 [facility] Comment on above: Order Comment: Speci men Type: BLOOD SPECIMENOrdering Facility: [facility] Address: [address] [place] [address] Performed By: #### 5 7021-8 ####[facility]ITALNCLIA [id number] [place] [address] [place] WBC (Bld) [#/Vol] 5.57 10*3/uL Normal 3.70-11.00 [facility] Comment on above: Order Comment: Speci men Type: BLOOD SPECIMENOrdering Facility: [facility] Address: [address] [place] [address] Performed By: #### 5 7021-8 ####[facility]ITALNCLIA [id number] [place] [address] [place] CNOVon 02-13-2025 CNOV Office Visit ([facility] ) LAURYN BANG ([id number]) 1950 F Date Time Provider Department 02/13/25 2:45 PM DINH BARKSDALE [facility] During your visit today, we recorded the following information about you: Temperature Pulse Respiration Blood pressure 98.8 degrees 86/minute 18/minute 137/75 Weight 72.1 kg Dinh Barksdale APRN.METALLURGICAL ENGINEERING TECHNICIAN 02/13/2025 3:29 PM Signed Subjective HPI Nontoxic-appearing 74-year-old female presents urgent care chief complaint abdominal pain. Duration of symptoms 2 months. Associated symptoms right upper middle and lower abdominal discomfort for the past 2 months. States started shortly after developing shingles. Pain has been persistent. Is exacerbated by certain movements. States is exacerbated by standing for long period of time. OTC medications none. States she does have some post shingle discomfort. Is on gabapentin currently. Rates pain as an aching 5 out of 10. States 6 out of 10 if she stands. No change in bowel or bladder habit. No vomiting. No fevers. No nausea. Past medical history prescription medications allergies reviewed .Patient presents with: Abdominal Pain: R abdomen x3 days, has had consistent pain x2 months post shingles, pain is different and worsening PAST MEDICAL HISTORY Diagnosis Date Acid reflux Benign neoplasm of colon Diaphragmatic hernia without mention of obstruction or gangrene takes tums Frequent UTI Dr. 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 Multiple thyroid nodules Pneumonia, viral Post herpetic neuralgia 01/17/2025 Shingles Symptomatic menopausal or female climacteric states hot flashes, night sweats PAST SURGICAL HISTORY Procedure Laterality Date COLSC FLX W/RMVL OF TUMOR POLYP LESION SNARE TQ 06/04/2008 EXC LESION TDN SHTH/JT CAPSL HAND/FNGR Left 03/20/2019 Excision of left thumb ganglion cyst THYROID RIGHT FINE NEEDLE ASPIRATION Right 05/06/2024 UNSPECIFIED ORAL SURGERY PROCEDURE, BY REPORT [place] teeth extracted UNSPECIFIED ORAL SURGERY PROCEDURE, BY REPORT 12/2016 tooth extracted VAGINAL HYSTERECTOMY UTERUS 250 GM/< 07/29/2008 Hysterectomy, vaginal w/ cystocele repair, removed one ovary ALLERGIES Marcaine-Epinephrine [Bupivacaine-Epinephr ine], Augmentin [Amoxicillin-Pot Clavulanate], Bactrim [Sulfamethoxazole], Doxycycline, Erythromycin, Meloxicam Submicronized, Prolia [Denosumab], and Rondec [Brompheniramine-Pseu doephedrin] MEDICATIONS gabapentin (NEURONTIN) 400 mg capsule Take 400 mg at bedtime along with 200 mg in the morning gabapentin (NEURONTIN) 100 mg capsule Take two tablets in AM in addition to 400 mg at bedtime ascorbic acid, vitamin C, (VITAMIN C) 500 mg tablet Take 500 mg by mouth once daily. metoprolol succinate ER (TOPROL XL) 25 mg 24 hr tablet Take 1 tablet by mouth once daily. CRANBERRY ORAL Take by mouth. multivitamin ORAL tablet Take 1 tablet by mouth once daily. FAMILY HISTORY Problem Relation Age of Onset Breast Cancer Mother CHF age of breast cancer 60's Breast Cancer Sister late 50's, Cancer Sister BRAIN age 70 Breast Cancer Maternal Grandmother Social History Tobacco Use Smoking status: Never Smokeless tobacco: Never Vaping Use Vaping status: Never Used Substance Use Topics Alcohol use: Yes Comment: Seldom Drug use: No Review of Systems Constitutional: Negative for chills, fever and malaise/fatigue. HENT: Negative for congestion, ear discharge, ear pain, sinus pain and sore throat. Eyes: Negative for blurred vision, pain, discharge and redness. Respiratory: Negative for cough, hemoptysis, sputum production, shortness of breath, wheezing and stridor. Cardiovascular: Negative for chest pain. Gastrointestinal: Positive for abdominal pain. Negative for diarrhea, nausea and vomiting. Musculoskeletal: Negative for back pain, falls, joint pain, myalgias and neck pain. Skin: Negative for itching and rash. Neurological: Negative for dizziness, loss of consciousness, weakness and headaches. Objective Physical Exam Constitutional: General: She is not in acute distress. Appearance: She is not diaphoretic. HENT: Head: Normocephalic. Jaw: No trismus, tenderness, swelling or pain on movement. Mouth/Throat: Mouth: Mucous membranes are moist. Pharynx: Oropharynx is clear. Uvula midline. No pharyngeal swelling, oropharyngeal exudate, posterior oropharyngeal erythema or uvula swelling. Eyes: Conjunctiva/sclera: Conjunctivae normal. Pupils: Pupils are equal, round, and reactive to light. Cardiovascular: Rate and Rhythm: Normal rate and regular rhythm. Heart sounds: Normal heart sounds. Pulmonary: Effort: Pulmonary effort is normal. No tachypnea, accessory muscle usage or respiratory distress. Breath sounds: Normal breath sounds. No stridor. (more content not included)... Normal [facility] metabolic 2000 panelOrdered By: Ashlyn Griffin on 02-13-2025 Albumin [Mass/Vol] 4.3 g/dL 3.9 - 4.9 g/dL [facility] ALP [Catalytic activity/Vol] 86 U/L 34 - 123 U/L [facility] ALT [Catalytic activity/Vol] 21 U/L 7 - 38 U/L [facility] Anion gap [Moles/Vol] 6 mmol/L Low 8 - 15 mmol/L [facility] AST [Catalytic activity/Vol] 23 U/L 13 - 35 U/L [facility] Bilirubin [Mass/Vol] 0.3 mg/dL 0.2 - 1 .3 mg/dL [facility] Calcium [Mass/Vol] 9.9 mg/dL 8.5 - 10. 2 mg/dL [facility] Chloride [Moles/Vol] 101 mmol/L 98 - 10 7 mmol/L [facility] CO2 [Moles/Vol] 30 mmol/L 22 - 30 mmol/L [facility] Creatinine [Mass/Vol] 0.8 mg/dL 0.58 - 0.96 mg/dL [facility] GFR/1.73 sq M.predicted among non-blacks MDRD (S/P/Bld) [Vol rate/Area] 78 mL/min/{1.73_m2} - PINF [facility] Comment on above: Estimated Glomerular Filtration Rate (eGFR) is calculated using the 2020 CKD-EPI creatinine equation. This equation utilizes serum creatinine, sex, and age as parameters. The creatinine assay has traceable calibration to isotope dilution-mass spectrometry. Refer to KDIGO guidelines for clinical interpretation. In patients with unstable renal function, e.g. those with acute kidney injury, the eGFR may not accurately reflect actual GFR. Glucose [Mass/Vol] 88 mg/dL 74 - 99 mg/dL [facility] Comment on above: The [place] Di[employer] Association (ADA) provides guidance for cutoff values for fasting glucose and random glucose. The ADA defines fasting as no caloric intake for at least 8 hours. Fasting plasma glucose results between 100 to 125 mg/dL indicate increased risk for diabetes (prediabetes). Fasting plasma glucose results greater than or equal to 126 mg/dL meet the criteria for diagnosis of diabetes. In the absence of unequivocal hyperglycemia, results should be confirmed by repeat testing. In a patient with classic symptoms of hyperglycemia or hyperglycemic crisis, random plasma glucose results greater than or equal to 200 mg/dL meet the criteria for diagnosis of diabetes. Reference: Standards of Medical Care in Diabetes 2016, [place] [employer]. Diabetes Care. 2016.39(Suppl 1). Interpretation and review of laboratory results Abnormal [facility] Potassium [Moles/Vol] 4.5 mmol/L 3.7 - 5.1 mmol/L [facility] Protein [Mass/Vol] 7.2 g/dL 6.3 - 8.0 g/dL [facility] Sodium [Moles/Vol] 137 mmol/L 136 - 144 mmol/L [facility] Urea nitrogen [Mass/Vol] 16 mg/dL 7 - 21 mg/dL [facility] Comprehensive metabolic 2000 panelon 02-13-2025 Albumin [Mass/Vol] 4.3 g/dL Normal 3.9-4.9 [facility] Comment on above: Order Comment: Lauryn gann Type: BLOOD SPECIMEN [facility] Address: [address] [place] [address] Performed By: #### 3 040-3 #### [facility] CLIA [id number] [address] [place] [address] [place] #### 34974-1 #### [facility] CLIA [id number] [address] [place] [address] [place] ALP [Catalytic activity/Vol] 86 U/L Normal 34-123 [facility] Comment on above: Order Comment: Lauryn gann Type: BLOOD SPECIMEN [facility] Address: [address] [place] [address] Performed By: #### 3 040-3 #### [facility] CLIA [id number] [address] [place] [address] [place] #### 69103-2 #### [facility] CLIA [id number] [address] [place] [address] [place] ALT [Catalytic activity/Vol] 21 U/L Normal 7-38 [facility] Comment on above: Order Comment: Speci men Type: BLOOD SPECIMEN [facility] Address: [address] [place] [address] Performed By: #### 3 040-3 #### [facility] CLIA [id number] [address] [place] [address] [place] #### 05792-3 #### [facility] CLIA [id number] [address] [place] [address] [place] Anion gap [Moles/Vol] 6 mmol/L Low 8-15 [facility] Comment on above: Order Comment: Speci men Type: BLOOD SPECIMEN [facility] Address: [address] [place] [address] Performed By: #### 3 040-3 #### [facility] CLIA [id number] [address] [place] [address] [place] #### 27932-3 #### [facility] CLIA [id number] [address] [place] [address] [place] AST [Catalytic activity/Vol] 23 U/L Normal 13-35 [facility] Comment on above: Order Comment: Speci men Type: BLOOD SPECIMEN [facility] Address: [address] [place] [address] Performed By: #### 3 040-3 #### [facility] CLIA [id number] [address] [place] [address] [place] #### 85533-1 #### [facility] CLIA [id number] [address] [place] [address] [place] Bilirubin [Mass/Vol] 0.3 mg/dL Normal 0.2-1.3 [facility] Comment on above: Order Comment: Speci men Type: BLOOD SPECIMEN [facility] Address: [address] [place] [address] Performed By: #### 3 040-3 #### [facility] CLIA [id number] [address] [place] [address] [place] #### 18406-8 #### [facility] CLIA [id number] [address] [place] [address] [place] Calcium [Mass/Vol] 9.9 mg/dL Normal 8.5-10.2 [facility] Comment on above: Order Comment: Speci men Type: BLOOD SPECIMEN [facility] Address: [address] [place] [address] Performed By: #### 3 040-3 #### [facility] CLIA [id number] [address] [place] [address] [place] #### 60209-4 #### [facility] CLIA [id number] [address] [place] [address] [place] Chloride [Moles/Vol] 101 mmol/L Normal 98-107 [facility] Comment on above: Order Comment: Speci men Type: BLOOD SPECIMEN [facility] Address: [address] [place] [address] Performed By: #### 3 040-3 #### [facility] CLIA [id number] [address] [place] [address] [place] #### 12782-1 #### [facility] CLIA [id number] [address] [place] [address] [place] CO2 [Moles/Vol] 30 mmol/L Normal 22-30 [facility] Comment on above: Order Comment: Speci men Type: BLOOD SPECIMEN [facility] Address: [address] [place] [address] Performed By: #### 3 040-3 #### [facility] CLIA [id number] [address] [place] [address] [place] #### 18713-1 #### [facility] CLIA [id number] [address] [place] [address] [place] Creatinine [Mass/Vol] 0.80 mg/dL Normal 0.58-0.96 [facility] Comment on above: Order Comment: Speci men Type: BLOOD SPECIMEN [facility] Address: [address] [place] [address] Performed By: #### 3 040-3 #### [facility] CLIA [id number] [address] [place] [address] [place] #### 13414-4 #### [facility] [id number] [address] [place] [address] [place] Creatinine and Glomerular filtration rate.predicted panel (S/P/Bld) 78 mL/min/1.73m??? Normal >=60 [facility] Comment on above: Order Comment: Speci men Type: BLOOD SPECIMEN [facility] Address: [address] [place] [address] Result Comment: Antonina mated Glomerular Filtration Rate (eGFR) is calculated using the 2020 CKD-EPI creatinine equation. This equation utilizes serum creatinine, sex, and age as parameters. The creatinine assay has traceable calibration to isotope dilution-mass spectrometry. Refer to KDIGO guidelines for clinical interpretation. In patients with unstable renal function, e.g. those with acute kidney injury, the eGFR may not accurately reflect actual GFR. Performed By: #### 3 040-3 #### [facility] CLIA [id number] [address] [place] [address] [place] #### 93084-0 #### [facility] CLIA [id number] [address] [place] [address] [place] Glucose [Mass/Vol] 88 mg/dL Normal 74-99 [facility] Comment on above: Order Comment: Lauryn gann Type: BLOOD SPECIMEN [facility] Address: [address] [place] [address] Result Comment: The [place] Diabetes Association (ADA) provides guidance for cutoff values for fasting glucose and random glucose. The ADA defines fasting as no caloric intake for at least 8 hours. Fasting plasma glucose results between 100 to 125 mg/dL indicate increased risk for diabetes (prediabetes). Fasting plasma glucose results greater than or equal to 126 mg/dL meet the criteria for diagnosis of diabetes. In the absence of unequivocal hyperglycemia, results should be confirmed by repeat testing. In a patient with classic symptoms of hyperglycemia or hyperglycemic crisis, random plasma glucose results greater than or equal to 200 mg/dL meet the criteria for diagnosis of diabetes. Reference: Standards of Medical Care in Diabetes 2016, [place] [employer]. Diabetes Care. 2016.39(Suppl 1). Performed By: #### 3 040-3 #### [facility] CLIA [id number] [address] [place] [address] [place] #### 10602-1 #### [facility] CLIA [id number] [address] [place] [address] [place] Potassium [Moles/Vol] 4.5 mmol/L Normal 3.7-5.1 [facility] Comment on above: Order Comment: Lauryn gann Type: BLOOD SPECIMEN [facility]ing Facility[facility] Address: [address] [place] [address] Performed By: #### 3 040-3 #### [facility] CLIA [id number] [address] [place] [address] [place] #### 38787-5 #### [facility] CLIA [id number] [address] [place] [address] [place] Protein [Mass/Vol] 7.2 g/dL Normal 6.3-8.0 [facility] Comment on above: Order Comment: Speci men Type: BLOOD SPECIMEN [facility]ing Facility: [facility] Address: [address] [place] [address] Performed By: #### 3 040-3 #### [facility] CLIA [id number] [address] [place] [address] [place] #### 82417-5 #### [facility] CLIA [id number] [address] [place] [address] [place] Sodium [Moles/Vol] 137 mmol/L Normal 136-144 [facility] Comment on above: Order Comment: Speci men Type: BLOOD SPECIMEN [facility]ing Facility[facility] Address: [address] [place] [address] Performed By: #### 3 040-3 #### [facility] CLIA [id number] [address] [place] [address] [place] #### 28993-4 #### [facility] CLIA [id number] [address] [place] [address] [place] Urea nitrogen [Mass/Vol] 16 mg/dL Normal 7-21 [facility] Comment on above: Order Comment: Speci men Type: BLOOD SPECIMEN [facility] Address: [address] [place] [address] Performed By: #### 3 040-3 #### [facility] CLIA [id number] [address] [place] [address] [place] #### 31268-1 #### [facility] CLIA [id number] [address] [place] [address] [place] LIPASEon 02-13-2025 Lipase [Catalytic activity/Vol] 22 U/L 16 - 61 U/L [facility] Lipase SerPl-cCncon 02-14-20 Lipase [Catalytic activity/Vol] 22 U/L Normal 16-61 [facility] Comment on above: Order Comment: Speci men Type: BLOOD SPECIMEN [facility] Address: [address] [place] [address] Performed By: #### 3 040-3 #### [facility] CLIA [id number] [address] [place] [address] [place] #### 56831-3 #### [facility] CLIA [id number] [address] [id number] [place] Lipase [Catalytic activity/V ol]on 02-13-2025 Interpretation and review of laboratory results Normal [facility] CNOVon 01-17-2025 CNOV Office Visit (DERIAN ) LAURYN BANG ([id number]) 1950 F Date Time Provider Department 01/17/25 11:40 AM ASHLYN KEITA During your visit today, we recorded the following information about you: Pulse Respiration Blood pressure Weight 62/minute 18/minute 132/88 71.9 kg Ashlyn Keita APRN.METALLURGICAL ENGINEERING TECHNICIAN 01/18/2025 8:59 PM Signed 01/17/2025 Patient presents with: Back Pain: Right side started around 12/26 SUBJECTIVE: This is a 74 year old that is here today for Above Complaints.. Diagnosed with shingles on 12/24/2024. Treated with gabapentin and valacyclovir. Recently went on road trip and her pain seemed to worsen and she thinks this is possible sciatica. Pain located at right back and radiates into her right abdomen. Described as sharp and stabbing. Aggravated by sitting or standing in one position. Walking help. Having problems sleeping due to the pain. Denies past back injury/surgery, saddle anaesthesia, urinary/bowel incontinence or inability, extremity numbness, tingling or weakness PAST MEDICAL HISTORY Diagnosis Date Acid reflux Benign neoplasm of colon Diaphragmatic hernia without mention of obstruction or gangrene takes tums Frequent UTI Dr. 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 ascorbic acid, vitamin C, (VITAMIN C) 500 mg tablet Take 500 mg by mouth once daily. metoprolol succinate ER (TOPROL XL) 25 mg 24 hr tablet Take 1 tablet by mouth once daily. CRANBERRY ORAL Take by mouth. multivitamin ORAL tablet Take 1 tablet by mouth once daily. No current facility-administered medications for this visit. Medications and allergies reviewed by this provider. SOCIAL HISTORY Social History Tobacco Use Smoking status: Never Smokeless tobacco: Never Vaping Use Vaping status: Never Used Substance Use Topics Alcohol use: Yes Comment: Seldom Drug use: No REVIEW OF SYSTEMS All other reviewed and negative other than HPI. OBJECTIVE: BP 132/88 Pulse 62 Resp 18 Wt 71.9 kg (158 lb 9.6 oz) SpO2 94% BMI 29.01 kg/m? . Vital signs reviewed by this provider. APPEARANCE Well appearing, alert, in no acute distress, well-hydrated, well nourished. EYES PERRLA, conjunctiva and sclera normal. BACK: Normal exam, good flexion and extension, negative SLR test. Patient reports pain is located around her shingles rash NEURO Reflexes symmetrical, Normal gait, No involuntary motions., and negative findings: gait, including heel, toe, and tandem walking normal, muscle tone normal, muscle strength normal, reflexes normal and symmetric, plantar response downgoing bilaterally SKIN resolving shingles rash right back around to right abdomen Depression Screening Never done Anxiety Screening Never done Pneumococcal Vaccine: 50+(1 of 1 - PCV) Never done Colorectal Cancer Screening due on 08/19/2020 Advance Directive Discussion Never done Influenza Vaccine(1) due on 04/07/2025 Shingrix Vaccine(1 of 2) due on 11/12/2025 Covid-19 Vaccine( season) due on 11/12/2025 Mammogram Screening due on 11/08/2025 Bone Density Screening due on 12/06/2026 RSV Vaccine(1 - 1-dose 75+ series) due on 12/26/2026 Diabetes Screening due on 11/27/2027 DTaP,Tdap,Td Vaccine(2 - Td or Tdap) due on 09/04/2029 Lipid Screening due on 11/12/2029 Hepatitis C Screening Completed ASSESSMENT/PLAN: 1. Postherpetic neuralgia - ICD9: 053.19, ICD10: B02.29 - will increase gabapentin to 400 mg at bedtime and 200 mg in the AM - GABAPENTIN 400 MG CAPSULE - if not improving she is to My Chart message me and I can adjust dosage PDMP website checked and validated. All prescriptions have been APPROPRIATELY filled. No suspicious activity was identified. 01/18/2025 by AMMY Mac APRN.METALLURGICAL ENGINEERING TECHNICIAN Prescription instructions reviewed with patient as applicable. Patient advised if symptoms do not improve or if symptoms worsen sooner, to contact their primary care physician. Potential red flag symptoms discussed with the patient. Reviewed appropriate action plan to take if red flag symptoms occur. Patient agreeable to treatment plan. I spent a total of 30 minutes on the date of the service which included preparing to see the patient, [id number] patient care, completing clinical document (more content not included)... Normal [facility] CNOVon 01-06-2025 CNOV Office Visit (INTMWS ) LAURYN BANG ([id number]) 1950 F Date Time Provider Department 01/06/25 2:40 PM WANDA GAN INTMWS During your visit today, we recorded the following information about you: Wanda Gan APRN.CORD MAKER 01/06/2025 3:30 PM Signed Subjective Patient ID: Velia is a 74 year old female who presents for Pain (shingles /). HPI Herpes Zoster: - Recent shingles outbreak with rash that developed into large blisters, which scabbed over and bled. - Rash is still present, described as crusty and scabby. - Completed a 7-day course of antiviral medication. - Previous episode of shingles affected the side of her face and right ear, with residual ear pain. - Has not received the shingles vaccine. Pain: - Experiencing severe electrical pain, described as stabbing, which is exacerbated by movement and interferes with sleep. - Pain is both constant and intermittent, with a dull, steady pain in the lower back and sciatic nerve area, and sharp, shooting pain in the ribs and around the nerve pathways. - Pain is present both internally and externally. - Pain is aggravated by wearing tight clothing, including bras and pants. - Taking gabapentin 200 mg at night, which provides minimal relief for the pain. - Hesitant to increase gabapentin dosage during the day due to side effects of drowsiness and brain fog. - Using Tylenol during the day for pain management. - Denies tolerance to prednisone, stating it is only used when necessary for conditions like poison tyesha. Appetite Changes: - Reports a significant decrease in appetite, with food described as unappealing. - Consuming a limited diet, eating the same meals daily for weeks. Weight down 7 lbs since beginning of month. Constitutional: (+) fatigue, (+) decreased appetite Ears/Nose/Mouth/Throa t: (+) otalgia (ear pain) Musculoskeletal: (+) rib pain, (+) sciatic region pain Skin: (+) rash (crusting, scabbing) Neurological: (+) neuropathic (electric) pain, (+) sleep disturbance, (+) difficulty concentrating Objective BP (P) 134/81 Pulse (P) 78 Resp (P) 16 Wt (P) 72 kg (158 lb 11.7 oz) BMI (P) 29.03 kg/m? Physical Exam Vitals and nursing note reviewed. Constitutional: Appearance: Normal appearance. HENT: Head: Normocephalic and atraumatic. Eyes: Conjunctiva/sclera: Conjunctivae normal. Cardiovascular: Rate and Rhythm: Normal rate. Pulmonary: Effort: Pulmonary effort is normal. Skin: General: Skin is warm and dry. Comments: large swath of shingles lesions, drying and crusting over right lower back around to umbilicus Neurological: General: No focal deficit present. Mental Status: She is alert and oriented to person, place, and time. 1. Herpes zoster without complication (B02.9) - Rash has progressed to crusty and scabby lesions, some of which bleed; completed a 7-day course of antiviral medication. - Discussed the benefits of the shingles vaccine, which can decrease the risk of recurrence by about 90%. 2. Lack of appetite (R63.0) - Decreased appetite noted, possibly related to recent antiviral treatment. - Monitor dietary intake; advised to maintain hydration and nutrition. 3. Postherpetic neuralgia (B02.29) - Experiencing constant, steady, dull pain as well as intermittent sharp, electrical pains. - Current gabapentin dose of 200 mg at bedtime increased to 300 mg at bedtime; instructed to take three 100 mg capsules until current supply is exhausted, then switch to one 300 mg capsule. - Advised to wear loose clothing to minimize discomfort. - Discussed potential for further increasing gabapentin dosage if needed; patient to contact office via phone for adjustments. Medical Decision Making: Problems: Low: Acute, uncomplicated illness or injury Risk: Moderate: Drug management Medical Decision Making Level: 3 - Low Allergies As of Date: 01/06/2025 Noted Allergy Reaction MARCAINE-EPINEPHRINE (BUPIVACAINE*07/11/20 23 12 - Shortness of Breath 18 - Angioedema Comments: Tolerates Lidocaine/Epinephrine AUGMENTIN (AMOXICILLIN-POT CLAVUL*06/20/2005 6 - Diarrhea BACTRIM (SULFAMETHOXAZOLE) 12/13/2012 8 - GI Upset DOXYCYCLINE 02/25/2015 2 - Rash ERYTHROMYCIN 03/31/2008 Comments: unknown MELOXICAM SUBMICRONIZED 11/17/2022 8 - GI Upset PROLIA (DENOSUMAB) 11/12/2024 16 - Unknown Comments: Leg aching RONDEC (BROMPHENIRAMINE-PSEU DOEPH*03/31/2008 16 - Unknown Comments: Date Reviewed: 12/24/2024 Reviewed by: Doreen Avery MA - Fully Assessed Reason for Visit: Pain [78] Cmt: shingles Visit Diagnoses:Herpes zoster without complication [B02.9] Lack of appetite [R63.0] Postherpetic neuralgia [B02.29] Order(s):gabapentin (NEURONTIN) 300 mg capsuleTake 1 capsule by mouth daily at bedtime for 90 days.Disp: 30 capsuleRfl: 2 Prescriptions as of 01/06/2025 - gabapentin (NEURONTIN) (more content not included)... Normal [facility] CNOVon 12-24-2024 CNOV Office Visit (BEBETOPWS ) LAURYN BANG ([id number]) 1950 F Date Time Provider Department 12/24/24 10:40 AM REGINE IVEY During your visit today, we recorded the following information about you: Pulse Blood pressure Weight 82/minute 126/76 71 kg Regine Ivey, PLYWOOD PATCHER.METALLURGICAL ENGINEERING TECHNICIAN 12/24/2024 10:59 AM Signed Chief Complaint Patient presents with: Rash: Painful rash X 5 days HPI Lauryn Bang is a 73 year old female who presents here today for Above Complaints.. Patient presents for painful rash x5 days to right abdomen. Patient reports it is painful and has kept her up the past couple nights. Past medical history, appointments, medications, allergies reviewed. Previous Medical History PAST MEDICAL HISTORY Diagnosis Date Acid reflux Benign neoplasm of colon Diaphragmatic hernia without mention of obstruction or gangrene takes tums Frequent UTI Dr. 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 Multiple thyroid nodules Pneumonia, viral Shingles Symptomatic menopausal or female climacteric states hot flashes, night sweats Previous Surgical History PAST SURGICAL HISTORY Procedure Laterality Date COLSC FLX W/RMVL OF TUMOR POLYP LESION SNARE TQ 06/04/2008 EXC LESION TDN SHTH/JT CAPSL HAND/FNGR Left 03/20/2019 Excision of left thumb ganglion cyst THYROID RIGHT FINE NEEDLE ASPIRATION Right 05/06/2024 UNSPECIFIED ORAL SURGERY PROCEDURE, BY REPORT [place] teeth extracted UNSPECIFIED ORAL SURGERY PROCEDURE, BY REPORT 12/2016 tooth extracted VAGINAL HYSTERECTOMY UTERUS 250 GM/< 07/29/2008 Hysterectomy, vaginal w/ cystocele repair, removed one ovary Family History FAMILY HISTORY Problem Relation Age of Onset Breast Cancer Mother CHF age of breast cancer 60's Breast Cancer Sister late 50's, Cancer Sister BRAIN age 70 Breast Cancer Maternal Grandmother Patient Allergies ALLERGIES Allergen Reactions Marcaine-Epinephrin* Shortness of Breath, Angioedema Tolerates Lidocaine/Epinephrine Augmentin [Amoxicil* Diarrhea Bactrim [Sulfametho* GI Upset Doxycycline Rash Erythromycin unknown Meloxicam Submicron* GI Upset Prolia [Denosumab] Unknown Leg aching Rondec [Bromphenira* Unknown Current Medications Current Outpatient Medications on File Prior to Visit Medication Sig ascorbic acid, vitamin C, (VITAMIN C) 500 mg tablet Take 500 mg by mouth once daily. metoprolol succinate ER (TOPROL XL) 25 mg 24 hr tablet Take 1 tablet by mouth once daily. CRANBERRY ORAL Take by mouth. multivitamin ORAL tablet Take 1 tablet by mouth once daily. No current facility-administered medications on file prior to visit. Social History Social History Tobacco Use Smoking status: Never Smokeless tobacco: Never Vaping Use Vaping status: Never Used Substance Use Topics Alcohol use: Yes Comment: Seldom Drug use: No Review of Symptoms REVIEW OF SYSTEMS SEE HPI EXAM: BP 126/76 Pulse 82 Wt 71 kg (156 lb 8.4 oz) BMI 28.63 kg/m? General Appearance: Well appearing, alert, in no acute distress, well-hydrated, well nourished.. Skin: Raised Blistery rash to right abdomen extending from spine to umbilicus. Health Maintenance List Depression Screening Never done Anxiety Screening Never done Pneumococcal Vaccine: 50+(1 of 1 - PCV) Never done Colorectal Cancer Screening due on 08/19/2020 Advance Directive Discussion Never done Influenza Vaccine(1) due on 04/07/2025 Shingrix Vaccine(1 of 2) due on 11/12/2025 Covid-19 Vaccine( season) due on 11/12/2025 Mammogram Screening due on 11/08/2025 Bone Density Screening due on 12/06/2026 RSV Vaccine(1 - 1-dose 75+ series) due on 12/26/2026 Diabetes Screening due on 11/27/2027 DTaP,Tdap,Td Vaccine(2 - Td or Tdap) due on 09/04/2029 Lipid Screening due on 11/12/2029 Hepatitis C Screening Completed ASSESSMENT/PLAN: 1. Herpes zoster without complication - ICD9: 053.9, ICD10: B02.9 -Patient advised to avoid interaction with newborns and women and that shingles is contagious until the rash is crusted over. - VALACYCLOVIR 1 GRAM TABLET - GABAPENTIN 100 MG CAPSULE AMMY Sotelo Danielle, APRN.CNP 12/24/2024 11:01 AM Signed Addended by: REGINE IVEY on: 12/24/2024 11:01 AM Modules accepted: Orders Allergies As of Date: 12/24/2024 Noted Allergy Reaction MARCAINE-EPINEPHRINE (BUPIVACAINE*07/11/20 12 - Shortness of Breath 18 - Angioedema Comments: Tolerates Lidocaine/Epinephrine AUGMENTIN (AMOXICILLIN-POT CLAVUL*06/20/2005 6 - Diarrhea BACTRIM (SULFAMETHOXAZOLE) 12/13/2012 8 - GI Upset DOXYCYCLINE 02/25/2015 2 - Rash ERYTHROMYCIN 03/31/2008 Comments: unknown MELOXICAM SUBMICRONIZED 11/17/2022 8 - GI Upset PROLIA (DENOSUMAB) 11/12/2024 16 - Unknown Comments: Leg aching CIELO (more content not included)... Normal [facility] CNOVon 12-09-2024 CNOV Office Visit (UCWSTR ) LAURYN BANG ([id number]) 1950 F Date Time Provider Department 12/09/24 4:00 PM DINH BARKSDALE During your visit today, we recorded the following information about you: Temperature Pulse Respiration Blood pressure 99.7 degrees 73/minute 18/minute 136/82 Weight 75.1 kg Dinh Barksdale APRN.METALLURGICAL ENGINEERING TECHNICIAN 12/09/2024 4:10 PM Signed Subjective HPI Nontoxic-appearing 73-year-old female presents urgent care chief complaint cough nasal congestion fatigue. Duration of symptoms 4 days. Associated symptoms cough nasal congestion sore throat headache body aches chills fatigue. States last week she did have what she believes was a norovirus. States feeling better from that but still has some loose stools. Has having multiple loose stools a day. No blood in stool. Denies hemoptysis pleuritic pain or productive cough. Denies any high fevers. No OTC medications today. Past medical history prescription medications and allergies reviewed. .Patient presents with: Cough: Cough and congestion x 4 days and diarrhea x 1 week PAST MEDICAL HISTORY Diagnosis Date Acid reflux Benign neoplasm of colon Diaphragmatic hernia without mention of obstruction or gangrene takes tums Frequent UTI Dr. 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 Multiple thyroid nodules Pneumonia, viral Shingles Symptomatic menopausal or female climacteric states hot flashes, night sweats PAST SURGICAL HISTORY Procedure Laterality Date COLSC FLX W/RMVL OF TUMOR POLYP LESION SNARE TQ 06/04/2008 EXC LESION TDN SHTH/JT CAPSL HAND/FNGR Left 03/20/2019 Excision of left thumb ganglion cyst THYROID RIGHT FINE NEEDLE ASPIRATION Right 05/06/2024 UNSPECIFIED ORAL SURGERY PROCEDURE, BY REPORT [place] teeth extracted UNSPECIFIED ORAL SURGERY PROCEDURE, BY REPORT 12/2016 tooth extracted VAGINAL HYSTERECTOMY UTERUS 250 GM/< 07/29/2008 Hysterectomy, vaginal w/ cystocele repair, removed one ovary ALLERGIES Marcaine-Epinephrine [Bupivacaine-Epinephr ine], Augmentin [Amoxicillin-Pot Clavulanate], Bactrim [Sulfamethoxazole], Doxycycline, Erythromycin, Meloxicam Submicronized, Prolia [Denosumab], and Rondec [Brompheniramine-Pseu doephedrin] MEDICATIONS ascorbic acid, vitamin C, (VITAMIN C) 500 mg tablet Take 500 mg by mouth once daily. metoprolol succinate ER (TOPROL XL) 25 mg 24 hr tablet Take 1 tablet by mouth once daily. CRANBERRY ORAL Take by mouth. multivitamin ORAL tablet Take 1 tablet by mouth once daily. FAMILY HISTORY Problem Relation Age of Onset Breast Cancer Mother CHF age of breast cancer 60's Breast Cancer Sister late 50's, Cancer Sister BRAIN age 70 Breast Cancer Maternal Grandmother Social History Tobacco Use Smoking status: Never Smokeless tobacco: Never Vaping Use Vaping status: Never Used Substance Use Topics Alcohol use: Yes Comment: Seldom Drug use: No BP 136/82 Pulse 73 Temp 37.6 ?C (99.7 ?F) (Tympanic) Resp 18 Wt 75.1 kg (165 lb 9.1 oz) SpO2 96% BMI 30.28 kg/m? Review of Systems Constitutional: Negative for chills, fever and malaise/fatigue. HENT: Positive for congestion and sore throat. Negative for ear discharge, ear pain and sinus pain. Eyes: Negative for blurred vision, pain, discharge and redness. Respiratory: Positive for cough. Negative for hemoptysis, sputum production, shortness of breath, wheezing and stridor. Cardiovascular: Negative for chest pain. Gastrointestinal: Positive for diarrhea. Negative for abdominal pain, nausea and vomiting. Musculoskeletal: Negative for myalgias. Skin: Negative for itching and rash. Neurological: Positive for headaches. Negative for dizziness. Objective Physical Exam Constitutional: General: She is not in acute distress. Appearance: She is not diaphoretic. HENT: Head: Normocephalic. Jaw: No trismus, tenderness, swelling or pain on movement. Right Ear: Tympanic membrane, ear canal and external ear normal. Left Ear: Tympanic membrane, ear canal and external ear normal. Nose: Congestion present. Mouth/Throat: Mouth: Mucous membranes are moist. Pharynx: Oropharynx is clear. Uvula midline. No pharyngeal swelling, oropharyngeal exudate, posterior oropharyngeal erythema or uvula swelling. Eyes: Conjunctiva/sclera: Conjunctivae normal. Pupils: Pupils are equal, round, and reactive to light. Cardiovascular: Rate and Rhythm: Normal rate and regular rhythm. Heart sounds: Normal heart sounds. Pulmonary: Effort: Pulmonary effort is normal. No tachypnea, accessory muscle usage or respiratory distress. Breath sounds: No stridor. Wheezing present. No rhonchi or rales. Abdominal: General: There is no distension. Palpations: Abdomen is soft. Tenderness: There is no abdominal tenderness. There is (more content not included)... Normal [facility] XR CHEST 2V FRONTAL/LATon XR CHEST 2V FRONTAL/LAT * * *Final Repor t* * * DATE OF EXAM: Dec 09 2024 3:47PM WOX [id number] - XR CHEST 2V FRONTAL/LAT / PROCEDURE REASON: Acute cough * * * * Physician Interpretation * * * * EXAMINATION: CHEST RADIOGRAPH (2 VIEW FRONTAL and LATERAL) CLINICAL HISTORY: Acute cough MQ: XC2_6 EXAM DATE/TIME: 12/09/2024 3:47 PM COMPARISON: Chest x-ray 11/22/2023 RESULT: Lines, tubes, and devices: None. Lungs and pleura: No consolidation. No lung mass. No pleural effusion. No pneumothorax. Cardiomediastinal silhouette: Normal cardiomediastinal silhouette. Bones and soft tissues: Unremarkable. IMPRESSION: No acute radiographic abnormality. Accident Examiner: [facility] Transcribe Date/Time: Dec 09 2024 3:48P Dictated by : PANFILO LYNN MD This examination was interpreted and the report reviewed and electronically signed by: PANFILO LYNN MD on Dec 09 2024 3:51PM EST [id number] Normal [facility] XR Chest PA and Lateralon IMPRESSION: No acute radiographic abnormality. Accident Examiner: [facility] Transcribe Date/Time: Dec 09 2024 3:48P Dictated by : PANFILO LYNN MD This examination was interpreted and the report reviewed and electronically signed by: PANFILO LYNN MD on Dec 09 2024 3:51PM EST DIVISION OF RADIOLOGY * * *Final Report* * * DATE OF EXAM: Dec 09 2024 3:47PM WOX [id number] - XR CHEST 2V FRONTAL/LAT / PROCEDURE REASON: Acute cough * * * * Physician Interpretation * * * * EXAMINATION: CHEST RADIOGRAPH (2 VIEW FRONTAL & LATERAL) CLINICAL HISTORY: Acute cough MQ: XC2_6 EXAM DATE/TIME: 12/09/2024 3:47 PM COMPARISON: Chest x-ray 11/22/2023 RESULT: Lines, tubes, and devices: None. Lungs and pleura: No consolidation. No lung mass. No pleural effusion. No pneumothorax. Cardiomediastinal silhouette: Normal cardiomediastinal silhouette. Bones and soft tissues: Unremarkable. DIVISION OF RADIOLOGY Provider, [facility] - 12/09/2024 * * *Final Report* * * DATE OF EXAM: Dec 09 2024 3:47PM WOX [id number] - XR CHEST 2V FRONTAL/LAT / PROCEDURE REASON: Acute cough * * * * Physician Interpretation * * * * EXAMINATION: CHEST RADIOGRAPH (2 VIEW FRONTAL & LATERAL) CLINICAL HISTORY: Acute cough MQ: XC2_6 EXAM DATE/TIME: 12/09/2024 3:47 PM COMPARISON: Chest x-ray 11/22/2023 RESULT: Lines, tubes, and devices: None. Lungs and pleura: No consolidation. No lung mass. No pleural effusion. No pneumothorax. Cardiomediastinal silhouette: Normal cardiomediastinal silhouette. Bones and soft tissues: Unremarkable. IMPRESSION IMPRESSION: No acute radiographic abnormality. Accident Examiner: CAMI Transcribe Date/Time: Dec 09 2024 3:48P Dictated by : PANFILO LYNN MD This examination was interpreted and the report reviewed and electronically signed by: PANFILO LYNN MD on Dec 09 2024 3:51PM EST [facility] Radiology Study observation (narrative) [facility] Chest PA and LateralOrder ed By: Ccf Provider on 12-09-2024 [facility] BD DXA - AXIAL SKELETONon BD DXA - AXIAL SKELETON * * *Final Repor t* * * DATE OF EXAM: Dec 06 2024 8:13AM WRB 0804 - BD DXA - AXIAL SKELETON / PROCEDURE REASON: Osteoporosis, unspecified osteoporosis type, unspecified pathological fracture p * * * * Physician Interpretation * * * * EXAMINATION: DXA BONE DENSITOMETRY BD DXA - AXIAL SKELETON PATIENT DEMOGRAPHICS: Age: 73 years, Gender: Female SCANNER INFORMATION: DXA Model: [employer] - ividence C [id number] Date Scanned: 12/06/2024 8:13 AM CLINICAL HISTORY: DIAGNOSTIC Osteoporosis, unspecified osteoporosis type, unspecified pathological fracture presence . RISK FACTORS FOR OSTEOPOROSIS AND ASSOCIATED FRACTURES REPORTED BY THIS PATIENT: Please refer to Bone Health Questionnaire in the EMR CURRENT THERAPY: Please refer to Bone Health Questionnaire in the EMR RESULTS: Lumbar spine (L2, L3, L4): 0.572 g/cm2, T-score -4.6, Z-score -2.3 Lumbar spine: 2015: 0.621 g/cm2 Statistically significant decrease Right Femoral Neck: 0.503 g/cm2, T-score -3.1, Z-score -1.2 Right Total Hip: 0.739 g/cm2, T-score -1.7, Z-score 0.0 Left Femoral Neck: 0.456 g/cm2, T-score -3.6, Z-score -1.6 Left Femoral Neck: 2015: 0.487 g/cm2 No statistically significant change Left Total Hip: 0.707 g/cm2, T-score -1.9, Z-score -0.3 Left Total Hip: 2015: 0.697 g/cm2 No statistically significant change CHANGE IS STATISTICALLY SIGNIFICANT IN THE SPINE OR HIP IF GREATER THAN OR EQUAL TO 0.04 g/cm2 VERTEBRAL FRACTURE ASSESSMENT Not performed. IMPRESSION: THE LOWEST T-SCORE IS -4.6 IN THE SPINE 1) DIAGNOSIS (based on BMD alone): OSTEOPOROSIS Caution: Medical conditions other than osteoporosis may cause low bone density, such as osteomalacia or renal osteodystrophy. Clinical correlation is necessary. 2) FRACTURE RISK (based on FRAX): 10-year absolute fracture risk: - major osteoporotic fracture = 35 % - hip fracture = 15 % - A diagnosis of Osteoporosis, a 10 year probability of hip fracture greater than or equal to 3% or a 10 year probability of any major osteoporosis-related fracture greater than or equal to 20% should be considered for treatment. - DXA scanner generated FRAX calculations may slightly differ from online FRAX calculations due to differences in software versions. - All recommendations and calculations are to be considered as guidelines and should not replace sound clinical judgement - Caution: Fracture risk may be increased independent of BMD in patients with corticosteroid use, age greater than 65 years, or a history of prior fragility fracture. RECOMMENDATIONS: Follow-up in 2 years or as clinically indicated. Patients that are taking corticosteroids, are transplant recipients or have hyperparathyroidism should have annual follow-up. Follow-up scans should always be done on the same machine for accurate comparison. FOR MORE INFORMATION ABOUT DIAGNOSIS AND TREATMENT: [facility] Center for Osteoporosis and Metabolic Bone Disease:? www.ccf.org/arthritis /osteo National Osteoporosis Foundation:? www.nof.org International Society of Clinical Densitometry www.iscd.org Accident Examiner: CAMI Transcribe Date/Time: Dec 09 2024 10:59A Dictated by : CESILIA PEREIRA MD This examination was interpreted and the report reviewed and electronically signed by: CESILIA PEREIRA MD on Dec 09 2024 11:01AM EST [id number] N -4.6 Normal [facility] Comprehensive metabolic 2000 panelon 11-27-2024 Albumin [Mass/Vol] 4.3 g/dL Normal 3.9-4.9 [facility] Comment on above: Order Comment: Speci men Type: BLOOD SPECIMEN [facility] Address: [address] [place] [address] Performed By: #### 2 4323-8 #### [facility] CLIA [id number] [address] [place] [address] [place] ALP [Catalytic activity/Vol] 87 U/L Normal 34-123 [facility] Comment on above: Order Comment: Speci men Type: BLOOD SPECIMEN [facility] Address: [address] [place] [address] Performed By: #### 2 4323-8 #### [facility] CLIA [id number] [address] [place] [address] [place] ALT [Catalytic activity/Vol] 18 U/L Normal 7-38 [facility] Comment on above: Order Comment: Speci men Type: BLOOD SPECIMEN [facility] Address: [address] [place] [address] Performed By: #### 2 4323-8 #### [facility] CLIA [id number] [address] [place] [address] [place] Anion gap [Moles/Vol] 7 mmol/L Low 8-15 [facility] Comment on above: Order Comment: Speci men Type: BLOOD SPECIMEN [facility] Address: [address] [place] [address] Performed By: #### 2 4323-8 #### [facility] CLIA [id number] [address] [place] [address] [place] AST [Catalytic activity/Vol] 26 U/L Normal 13-35 [facility] Comment on above: Order Comment: Speci men Type: BLOOD SPECIMEN [facility] Address: [address] [place] [address] Performed By: #### 2 4323-8 #### [facility] CLIA [id number] [address] [place] [address] [place] Bilirubin [Mass/Vol] 0.4 mg/dL Normal 0.2-1.3 [facility] Comment on above: Order Comment: Speci men Type: BLOOD SPECIMEN [facility] Address: [address] [place] [address] Performed By: #### 2 4323-8 #### [facility] CLIA [id number] [address] [place] [address] [place] Calcium [Mass/Vol] 10.3 mg/dL High 8.5-10.2 [facility] Comment on above: Order Comment: Speci men Type: BLOOD SPECIMEN [facility] Address: [address] [place] [address] Performed By: #### 2 4323-8 #### [facility] CLIA [id number] [address] [place] [address] [place] Chloride [Moles/Vol] 104 mmol/L Normal 98-107 [facility] Comment on above: Order Comment: Speci men Type: BLOOD SPECIMEN [facility] Address: [address] [place] [address] Performed By: #### 2 4323-8 #### [facility] CLIA [id number] [address] [place] [address] [place] CO2 [Moles/Vol] 29 mmol/L Normal 22-30 [facility] Comment on above: Order Comment: Speci men Type: BLOOD SPECIMEN [facility] Address: [address] [place] [address] Performed By: #### 2 4323-8 #### [facility] CLIA [id number] [address] [place] [address] [place] Creatinine [Mass/Vol] 0.88 mg/dL Normal 0.58-0.96 [facility] Comment on above: Order Comment: Lauryn men Type: BLOOD SPECIMEN [facility] Address: [address] [place] [address] Performed By: #### 2 4323-8 #### [facility] CLIA [id number] [address] [place] [address] [place] Creatinine and Glomerular filtration rate.predicted panel (S/P/Bld) 70 mL/min/1.73m??? Normal >=60 [facility] Comment on above: Order Comment: Lauryn gann Type: BLOOD SPECIMEN [facility] Address: [address] [place] [address] Result Comment: Antonina mated Glomerular Filtration Rate (eGFR) is calculated using the 2020 CKD-EPI creatinine equation. This equation utilizes serum creatinine, sex, and age as parameters. The creatinine assay has traceable calibration to isotope dilution-mass spectrometry. Refer to KDIGO guidelines for clinical interpretation. In patients with unstable renal function, e.g. those with acute kidney injury, the eGFR may not accurately reflect actual GFR. Performed By: #### 2 4323-8 #### [facility] CLIA [id number] [address] [place] [address] [place] Glucose [Mass/Vol] 77 mg/dL Normal 74-99 [facility] Comment on above: Order Comment: Lauryn men Type: BLOOD SPECIMEN [facility] Address: [address] [place] [address] Result Comment: The [place] Diabetes Association (ADA) provides guidance for cutoff values for fasting glucose and random glucose. The ADA defines fasting as no caloric intake for at least 8 hours. Fasting plasma glucose results between 100 to 125 mg/dL indicate increased risk for diabetes (prediabetes). Fasting plasma glucose results greater than or equal to 126 mg/dL meet the criteria for diagnosis of diabetes. In the absence of unequivocal hyperglycemia, results should be confirmed by repeat testing. In a patient with classic symptoms of hyperglycemia or hyperglycemic crisis, random plasma glucose results greater than or equal to 200 mg/dL meet the criteria for diagnosis of diabetes. Reference: Standards of Medical Care in Diabetes 2016, [place] Diabetes Association. Diabetes Care. 2016.39(Suppl 1). Performed By: #### 2 4323-8 #### [facility] CLIA [id number] [address] [place] [address] [place] Potassium [Moles/Vol] 4.9 mmol/L Normal 3.7-5.1 [facility] Comment on above: Order Comment: Speci men Type: BLOOD SPECIMEN [facility] Address: [address] [place] [address] Performed By: #### 2 4323-8 #### [facility] CLIA [id number] [address] [place] [address] [place] Protein [Mass/Vol] 7.3 g/dL Normal 6.3-8.0 [facility] Comment on above: Order Comment: Speci men Type: BLOOD SPECIMEN [facility] Address: [address] [place] [address] Performed By: #### 2 4323-8 #### [facility] CLIA [id number] [address] [place] [address] [place] Sodium [Moles/Vol] 140 mmol/L Normal 136-144 [facility] Comment on above: Order Comment: Speci men Type: BLOOD SPECIMEN [facility] Address: [address] [place] [address] Performed By: #### 2 4323-8 #### [facility] CLIA [id number] [address] [place] [address] [place] Urea nitrogen [Mass/Vol] 15 mg/dL Normal 7-21 [facility] Comment on above: Order Comment: Speci men Type: BLOOD SPECIMEN [facility] Address: [address] [place] [address] Performed By: #### 2 4323-8 #### [facility] CLIA [id number] [address] [place] [id number] [facility] CNOVon 11-18-2024 CNOV Office Visit (CARDMAXIMILIAN ) LAURYN BANG ([id number]) 1950 F Date Time Provider Department 11/18/24 10:40 AM BETY IGLESIAS During your visit today, we recorded the following information about you: Pulse Respiration Blood pressure Weight 71/minute 12/minute 126/72 72.6 kg Height 1.575 m Bety Iglesias MD 11/18/2024 10:48 AM Signed [facility] Cardiology ([place] ) [address] [facility] [id number] OUTPATIENT VISIT DATE 11/18/2024 PRIMARY CARE PHYSICIAN: Ashlyn Keita [address] [place] [address] REFERRING PHYSICIAN: Ashlyn Keita [address] [facility] [address] HISTORY OF PRESENT ILLNESS: Ms. Bang is a 73 year old woman with moderate to severe mitral regurgitation and palpitations who presents for routine follow-up. Since her last visit she has been doing well. She has not had shortness of breath or dyspnea on exertion. She has had rare palpitations and feels that they have improved since her last visit. She has not had symptoms concerning for congestive heart failure including PND, orthopnea, or lower extremity edema. PAST MEDICAL HISTORY Diagnosis Date Acid reflux Benign neoplasm of colon Diaphragmatic hernia without mention of obstruction or gangrene takes tums Frequent UTI Dr. 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 Multiple thyroid nodules Pneumonia, viral Shingles Symptomatic menopausal or female climacteric states hot flashes, night sweats PAST SURGICAL HISTORY Procedure Laterality Date COLSC FLX W/RMVL OF TUMOR POLYP LESION SNARE TQ 06/04/2008 EXC LESION TDN SHTH/JT CAPSL HAND/FNGR Left 03/20/2019 Excision of left thumb ganglion cyst THYROID RIGHT FINE NEEDLE ASPIRATION Right 05/06/2024 UNSPECIFIED ORAL SURGERY PROCEDURE, BY REPORT [place] teeth extracted UNSPECIFIED ORAL SURGERY PROCEDURE, BY REPORT 12/2016 tooth extracted VAGINAL HYSTERECTOMY UTERUS 250 GM/< 07/29/2008 Hysterectomy, vaginal w/ cystocele repair, removed one ovary SOCIAL HISTORY Social History Tobacco Use Smoking status: Never Smokeless tobacco: Never Vaping Use Vaping status: Never Used Substance Use Topics Alcohol use: Yes Comment: Seldom Drug use: No FAMILY HISTORY Problem Relation Age of Onset Breast Cancer Mother CHF age of breast cancer 60's Breast Cancer Sister late 50's, Cancer Sister BRAIN age 70 Breast Cancer Maternal Grandmother ALLERGIES: ALLERGIES Allergen Reactions Marcaine-Epinephrin* Shortness of Breath, Angioedema Tolerates Lidocaine/Epinephrine Augmentin [Amoxicil* Diarrhea Bactrim [Sulfametho* GI Upset Doxycycline Rash Erythromycin unknown Meloxicam Submicron* GI Upset Prolia [Denosumab] Unknown Leg aching Rondec [Bromphenira* Unknown MEDICATIONS: ascorbic acid, vitamin C, (VITAMIN C) 500 mg tablet Take 500 mg by mouth once daily. metoprolol succinate ER (TOPROL XL) 25 mg 24 hr tablet Take 1 tablet by mouth once daily. CRANBERRY ORAL Take by mouth. multivitamin ORAL tablet Take 1 tablet by mouth once daily. REVIEW OF SYSTEMS: Review of Systems Constitutional: Negative for chills, fever, malaise/fatigue and weight loss. HENT: Negative for hearing loss and sore throat. Eyes: Negative for blurred vision and double vision. Respiratory: Negative. Cardiovascular: Negative for chest pain and palpitations. Gastrointestinal: Negative. Genitourinary: Negative for dysuria, frequency, hematuria and urgency. Musculoskeletal: Negative. Skin: Negative. Neurological: Negative for dizziness, seizures, loss of consciousness, weakness and headaches. Endo/Heme/Allergies: Negative for environmental allergies. Does not bruise/bleed easily. Psychiatric/Behaviora l: Negative for depression. PHYSICAL EXAMINATION: BP 126/72 Pulse 71 Resp 12 Ht 5' 2 (1.58m) Wt 160 lb (72.6kg) SpO2 98% BMI 29.26 kg/(m2). General: Very pleasant woman sitting appears comfortable no apparent distress she is alert and oriented x3 HEENT: Carotid upstrokes are brisk bilaterally without bruits no JVD appreciated. Pulmonary: Lungs are clear no rales, wheezes, rhonchi Cardiovascular: Normal S1, S2 with regular rate and rhythm. There is a late systolic murmur best heard at the apex rated 3/6 Extremities: Warm, well-perfused, no lower extremity edema. 2+ distal pulses CARDIOVASCULAR MEDICINE TESTING: Echocardiogram 07/19/2024: - The left ventricle is mildly dilated. Left ventricular systolic function is normal. EF = 56 ? 5% (2D biplane) Left ventricular diastolic function was not evaluated due to >2+ MR. - The right ventricle is normal in size. Right ventricular systolic function is no (more content not included)... Normal [facility] Mario 11-13-2024 CHAI Telephone (DERIAN) LAURYN BANG ([id number]) 1950 F Date Time Provider Department 11/13/24 ASHLYN KEITA During your visit today, we recorded the following information about you: Ashlyn Keita APRN.AYAH 11/13/2024 6:42 PM Signed Calcium and potassium slightly elevated. This may be lab error however I would like her to have this recheck in the next couple of weeks. The rest of her blood work is in acceptable ranges. Ashlyn Keita APRN.Adamaris Tolliver LPN 11/13/2024 7:30 PM Signed Patient telephoned and made aware of results and recommendations below. Voices understanding. Adamaris Goetz LPN Allergies As of Date: 11/13/2024 Noted Allergy Reaction MARCAINE-EPINEPHRINE (BUPIVACAINE*07/11/20 12 - Shortness of Breath 18 - Angioedema Comments: Tolerates Lidocaine/Epinephrine AUGMENTIN (AMOXICILLIN-POT CLAVUL*06/20/2005 6 - Diarrhea BACTRIM (SULFAMETHOXAZOLE) 12/13/2012 8 - GI Upset DOXYCYCLINE 02/25/2015 2 - Rash ERYTHROMYCIN 03/31/2008 Comments: unknown MELOXICAM SUBMICRONIZED 11/17/2022 8 - GI Upset PROLIA (DENOSUMAB) 11/12/2024 16 - Unknown Comments: Leg aching RONDEC (BROMPHENIRAMINE-PSEU DOEPH*03/31/2008 16 - Unknown Comments: Date Reviewed: 11/12/2024 Reviewed by: Adamaris Goetz LPN - Fully Assessed Reason for Visit: Results [95] Primary Visit Diagnosis:Hyperkalemi a [E87.5] Other Visit Diagnosis:Hypercalcem ia [E83.52] Order(s):COMPREHENSIV E METABOLIC PANEL [SQCMP] Order #: [id number] FUTURE Prescriptions as of 11/13/2024 - ascorbic acid, vitamin C, (VITAMIN C) 500 mg tablet Take 500 mg by mouth once daily. - metoprolol succinate ER (TOPROL XL) 25 mg 24 hr tablet Take 1 tablet by mouth once daily. - CRANBERRY ORAL Take by mouth. - multivitamin ORAL tablet Take 1 tablet by mouth once daily. Problem List As Of Date 11/13/2024 Noted Resolved BENIGN NEOPLASM LG BOWEL [D12.6] 06/04/2008 Chronic interstitial cystitis [N30.10] 06/26/2009 Osteoporosis [M81.0] 04/01/2010 Heart murmur [R01.1] 10/20/2010 Nontoxic multinodular goiter [E04.2] 10/20/2010 Eczematous dermatitis [L30.9] 04/21/2012 Contact dermatitis and other eczema, due to uns*04/21/2012 Pruritus [L29.9] 04/21/2012 Urticaria [L50.9] 04/21/2012 Rash and other nonspecific skin eruption [R21] 04/21/2012 05/07/2024 Ganglion cyst [M67.40] 03/11/2019 Enlarged thyroid gland [E04.9] 10/10/2019 Multiple thyroid nodules [E04.2] 10/10/2019 Lumbar pain [M54.50] 10/21/2022 Left hip pain [M25.552] 10/21/2022 Palpitations [R00.2] 07/03/2023 Nonrheumatic mitral valve regurgitation [I34.0] 07/03/2023 Other chest pain [R07.89] 07/03/2023 Encounter for screening for malignant neoplasm *12/07/2023 Encounter Status:Closed by ADAMARIS GOETZ on 11/13/24 Normal [facility] CBC W Auto Differential pane l (Bld)on 11-12-2024 Basophils (Bld) [#/Vol] 0.03 10*3/uL Normal <0.11 [facility] Comment on above: Order Comment: Speci men Type: BLOOD SPECIMENOrdering Facility: [facility] Address: [address] [place] [address] Performed By: #### 5 7021-8 ####[facility] [id number] [place] [address] [place] Basophils/100 WBC (Bld) 0.5 % Normal [facility] Comment on above: Order Comment: Speci men Type: BLOOD SPECIMENOrdering Facility: [facility] Address: [address] [place] [address] Performed By: #### 5 7021-8 ####[facility] [id number] [place] [address] [place] Differential cell count method Nom (Bld) Auto Normal [facility] Comment on above: Order Comment: Speci men Type: BLOOD SPECIMENOrdering Facility: [facility] Address: [address] [place] [address] Performed By: #### 5 7021-8 ####[facility] [id number] [place] [address] [place] Eosinophils (Bld) [#/Vol] 0.19 10*3/uL Normal <0.46 [facility] Comment on above: Order Comment: Speci men Type: BLOOD SPECIMENOrdering Facility: [facility] Address: [address] [place] [address] Performed By: #### 5 7021-8 ####[facility] [id number] [place] [address] [place] Eosinophils/100 WBC (Bld) 3.5 % Normal [facility] Comment on above: Order Comment: Speci men Type: BLOOD SPECIMENOrdering Facility: [facility] Address: [address] [place] [address] Performed By: #### 5 7021-8 ####[facility] [id number] [place] [address] [place] Erythrocyte distribution width (RBC) [Ratio] 13.7 % Normal 11.5-15.0 [facility] Comment on above: Order Comment: Speci men Type: BLOOD SPECIMENOrdering Facility: [facility] Address: [address] [place] [address] Performed By: #### 5 7021-8 ####[facility] [id number] [place] [address] [place] Hematocrit (Bld) [Volume fraction] 45.0 % Normal 36.0-46.0 [facility] Comment on above: Order Comment: Speci men Type: BLOOD SPECIMENOrdering Facility: [facility] Address: [address] [place] [address] Performed By: #### 5 7021-8 ####[facility] [id number] [place] [address] [place] Hemoglobin (Bld) [Mass/Vol] 14.0 g/dL Normal 11.5-15.5 [facility] Comment on above: Order Comment: Speci men Type: BLOOD SPECIMENOrdering Facility: [facility] Address: [address] [place] [address] Performed By: #### 5 7021-8 ####[facility] [id number] [place] [address] [place] Immature granulocytes (Bld) [#/Vol] 10*3/uL Normal <0.10 [facility] Comment on above: Order Comment: Speci men Type: BLOOD SPECIMENOrdering Facility: [facility] Address: [address] [place] [address] Performed By: #### 5 7021-8 ####[facility] [id number] [place] [address] [place] Immature granulocytes/100 WBC (Bld) 0.2 % Normal [facility] Comment on above: Order Comment: Speci men Type: BLOOD SPECIMENOrdering Facility: [facility] Address: [address] [place] [address] Performed By: #### 5 7021-8 ####[facility] [id number] [place] [address] [place] Lymphocytes (Bld) [#/Vol] 2.30 10*3/uL Normal 1.00-4.00 [facility] Comment on above: Order Comment: Speci men Type: BLOOD SPECIMENOrdering Facility: [facility] Address: [address] [place] [address] Performed By: #### 5 7021-8 ####[facility] [id number] [place] [address] [place] Lymphocytes/100 WBC (Bld) 41.9 % Normal [facility] Comment on above: Order Comment: Speci men Type: BLOOD SPECIMENOrdering Facility: [facility] Address: [address] [place] [address] Performed By: #### 5 7021-8 ####[facility] [id number] [place] [address] [place] MCH (RBC) [Entitic mass] 29.2 pg Normal 26.0-34.0 [facility] Comment on above: Order Comment: Speci men Type: BLOOD SPECIMENOrdering Facility: [facility] Address: [address] [place] [address] Performed By: #### 5 7021-8 ####[facility] [id number] [place] [address] [place] MCHC (RBC) [Mass/Vol] 31.1 g/dL Normal 30.5-36.0 [facility] Comment on above: Order Comment: Speci men Type: BLOOD SPECIMENOrdering Facility: [facility] Address: [address] [place] [address] Performed By: #### 5 7021-8 ####[facility] [id number] [place] [address] [place] MCV (RBC) [Entitic vol] 93.9 fL Normal 80.0-100.0 [facility] Comment on above: Order Comment: Speci men Type: BLOOD SPECIMENOrdering Facility: [facility] Address: [address] [place] [address] Performed By: #### 5 7021-8 ####[facility] [id number] [place] [address] [place] Monocytes (Bld) [#/Vol] 0.36 10*3/uL Normal <0.87 [facility] Comment on above: Order Comment: Speci men Type: BLOOD SPECIMENOrdering Facility: [facility] Address: [address] [place] [address] Performed By: #### 5 7021-8 ####[facility] LABCLIA [id number] [place] [address] [place] Monocytes/100 WBC (Bld) 6.6 % Normal [facility] Comment on above: Order Comment: Speci men Type: BLOOD SPECIMENOrdering Facility: [facility] Address: [address] [place], [place] [address] Performed By: #### 5 7021-8 ####[facility] LABCLIA [id number] [place] [address] [place] Neutrophils (Bld) [#/Vol] 2.60 10*3/uL Normal 1.45-7.50 [facility] Comment on above: Order Comment: Speci men Type: BLOOD SPECIMENOrdering Facility: [facility] Address: [address] [place] [address] Performed By: #### 5 7021-8 ####[facility] LABCLIA [id number] [place] [address] [place] Neutrophils/100 WBC (Bld) 47.3 % Normal [facility] Comment on above: Order Comment: Speci men Type: BLOOD SPECIMENOrdering Facility: [facility] Address: [address] [place] [address] Performed By: #### 5 7021-8 ####[facility] LABCLIA [id number] [place] [address] [place] Nucleated RBC (Bld) [#/Vol] 10*3/uL Normal <0.01 [facility] Comment on above: Order Comment: Speci men Type: BLOOD SPECIMENOrdering Facility: [facility] Address: [address] [place] [address] Performed By: #### 5 7021-8 ####[facility] LABCLIA [id number] [place] [address] [place] Nucleated RBC/100 WBC (Bld) [Ratio] 0.0 /100 WBC Normal [facility] Comment on above: Order Comment: Speci men Type: BLOOD SPECIMENOrdering Facility: [facility] Address: [address] [place] [address] Performed By: #### 5 7021-8 ####[facility] LABCLIA [id number] [place] [address] [place] Platelet mean volume (Bld) [Entitic vol] 11.9 fL Normal 9.0-12.7 [facility] Comment on above: Order Comment: Speci men Type: BLOOD SPECIMENOrdering Facility: [facility] Address: [address] [place] [address] Performed By: #### 5 7021-8 ####[facility] LABCLIA [id number] [place] [address] [place] Platelets (Bld) [#/Vol] 176 10*3/uL Normal 150-400 [facility] Comment on above: Order Comment: Speci men Type: BLOOD SPECIMENOrdering Facility: [facility] Address: [address] [place] [address] Performed By: #### 5 7021-8 ####[facility] LABIA [id number] [place] [address] [place] RBC (Bld) [#/Vol] 4.79 10*6/uL Normal 3.90-5.20 [facility] Comment on above: Order Comment: Speci men Type: BLOOD SPECIMENOrdering Facility: [facility] Address: [address] [place] [address] Performed By: #### 5 7021-8 ####[facility] LABIA [id number] [place] [address] [place] WBC (Bld) [#/Vol] 5.49 10*3/uL Normal 3.70-11.00 [facility] Comment on above: Order Comment: Speci men Type: BLOOD SPECIMENOrdering Facility: [facility] Address: [address] [place] [address] Performed By: #### 5 7021-8 ####[facility] LABCLIA [id number] [place] [address] [place] CNOVon 11-12-2024 CNOV Office Visit (FAMPWS ) LAURYN BANG ([id number]) 1950 F Date Time Provider Department 11/12/24 11:00 AM ASHLYN KEITA During your visit today, we recorded the following information about you: Pulse Respiration Blood pressure Weight 64/minute 18/minute 150/88 73.2 kg Height 1.6 m Ashlyn Keita APRN.CNP 11/12/2024 11:10 AM Addendum Should be taking Calcium 1200 mg and Vitamin D 2000 units daily BONE MINERAL DENSITY PATIENT INSTRUCTIONS Bone mineral density testing measures the amount of calcium in certain parts of your bones. This information determines how strong your bones are. The test is used to detect osteoporosis, a disease in which the bone's mineral content and density are low, increasing a person's risk of fractures. The lumbar spine (lower back) and the hip are the skeletal sites usually examined. For the test, remember that: 1. You cannot take this test if you are . 2. Eat a normal diet on the day of the test. 3. Take your medications as you normally would. 4. DO NOT take calcium supplements (such as Tums) for 24 hours before the test. 5. On the day of the test, leave valuables (jewelry or credit cards) at home. 6. The test should be performed prior to oral, rectal or IV contrast studies, or at least 7 days after any of these studies. For the test, you may be asked to wear a hospital gown. You will lie on your back, on a padded table, in a comfortable position. Generally, you can resume your usual activities immediately. Ashlyn Keita APRN.METALLURGICAL ENGINEERING TECHNICIAN 11/12/2024 11:33 AM Signed Lauryn Bang is a 73 year old female here for a Medicare wellness visit. Medicare Health Risk Assessment General Health Very good Exercise: Minutes/Day 90 min Exercise: Days/Week 3 days Alcohol: Daily Use Monthly or less Alcohol: Drinks/Day 1 or 2 Alcohol: 6 or more drinks Never Feel off balance No Concerns: Teeth/Dentures No Concerns: Sexual function No Troubled by feelings None of the above Frequency: Eating healthy diet Nearly every day ADLs requiring help None of the above Safety precautions in home/vehicle Smoke, vape, chews tobacco No Difficulty hearing No Difficulty seeing No Current Providers Specialists: I have reviewed specialist-related care of the patient in the medical record. Current care team: Patient Care Team: Perry Bautista MD as PCP - General (Family Medicine) Ashlyn Keita APRN.CNP as [employer] Sander (Family Medicine) Dr. Iglesias ( cardiology) Sheela Perez ( urology) Medical/Family history review Reviewed and updated problem list, medical/surgical/fami ly/social history, medications, and allergies. Opioid use review Opioid Medications (last 90 days) No data to display Anxiety/Depression screening PHQ-9 Score: 2 (Minimal Depression) IRINA-7 Score: 1 (Minimal Anxiety) Recommendation: no further intervention at this time Cognitive screening Cognitive screening reviewed and No further action needed (score 3-5). Functional Observation Was the patient's Timed Up AND Go test unsteady or >= 12 seconds? No Advance Care Planning Surrogate decision maker and/or advance care plan documented Measurements Pulse 64 Resp 18 Ht 160 cm (5' 2.99) Wt 73.2 kg (161 lb 6 oz) SpO2 94% BMI 28.59 kg/m? Vision Screening: Follows with optometry/ophthalmolo gy Right: 20/25 Left: 20/ 25 Both: 20/50 ASSESSMENT/PLAN: 1. Medicare annual wellness visit, subsequent - ICD9: V70.0, ICD10: Z00.00 (primary diagnosis) - Counseled on healthy diet and regular exercise - Bone mineral density ordered - Follow up for annual exam in one year - COMPLETE BLOOD COUNT AND DIFFERENTIAL - COMPREHENSIVE METABOLIC PANEL - LIPID PANEL, NONFASTING 2. Osteoporosis, unspecified osteoporosis type, unspecified pathological fracture presence - ICD9: 733.00, ICD10: M81.0 - Reviewed the need for Calcium and Vitamin D supplements and weight bearing exercise as tolerated - DXA-AXIAL SKELETON Ashlyn Keita APRN.METALLURGICAL ENGINEERING TECHNICIAN Prescription instructions reviewed with patient as applicable. Patient advised if symptoms do not improve or if symptoms worsen sooner, to contact their primary care physician. Potential red flag symptoms discussed with the patient. Reviewed appropriate action plan to take if red flag symptoms occur. Patient agreeable to treatment plan. Allergies As of Date: 11/12/2024 Noted Allergy Reaction MARCAINE-EPINEPHRINE (BUPIVACAINE*07/11/20 12 - Shortness of Breath 18 - Angioedema Comments: Tolerates Lidocaine/Epinephrine AUGMENTIN (AMOXICILLIN-POT CLAVUL*06/20/2005 6 - Diarrhea BACTRIM (SULFAMETHOXAZOLE) 12/13/2012 8 - GI Upset DOXYCYCLINE 02/25/2015 2 - Rash ERYTHROMYCIN 03/31/2008 Comments: unknown MELOXICAM SUBMICRONIZED 11/17/2022 8 - GI Upset PROLIA (DENOSUMAB) 11/12/2024 16 - Unknown Commen (more content not included)... Normal [facility] Comprehensive metabolic 2000 panelon 11-12-2024 Albumin [Mass/Vol] 4.3 g/dL Normal 3.9-4.9 [facility] Comment on above: Order Comment: Speci men Type: BLOOD SPECIMENOrdering Facility: [facility] Address: [address] [place] [address] Performed By: #### L IPNF, 50999-7 ####[facility] LABCLIA [id number] [place] [address] [place] ALP [Catalytic activity/Vol] 88 U/L Normal 34-123 [facility] Comment on above: Order Comment: Speci men Type: BLOOD SPECIMENOrdering Facility: [facility] Address: [address] [place] [address] Performed By: #### L IPNF, 73034-5 ####[facility] LABCLIA [id number] [place] [address] [place] ALT [Catalytic activity/Vol] 19 U/L Normal 7-38 [facility] Comment on above: Order Comment: Speci men Type: BLOOD SPECIMENOrdering Facility: [facility] Address: [address] [place] [address] Performed By: #### L IPNF, 56831-6 ####[facility] LABCLIA [id number] [place] [address] [place] Anion gap [Moles/Vol] 9 mmol/L Normal 8-15 [facility] Comment on above: Order Comment: Speci men Type: BLOOD SPECIMENOrdering Facility: [facility] Address: [address] [place] [address] Performed By: #### L IPNF, 24642-7 ####[facility] LABCLIA [id number] [place] [address] [place] AST [Catalytic activity/Vol] 26 U/L Normal 13-35 [facility] Comment on above: Order Comment: Speci men Type: BLOOD SPECIMENOrdering Facility: [facility] Address: [address] [place] [address] Performed By: #### L IPNF, 55953-8 ####[facility] LABCLIA [id number] [place] [address] [place] Bilirubin [Mass/Vol] 0.4 mg/dL Normal 0.2-1.3 [facility] Comment on above: Order Comment: Speci men Type: BLOOD SPECIMENOrdering Facility: [facility] Address: [address] [place] [address] Performed By: #### L IPNF, 16493-7 ####[facility] LABCLIA [id number] [place] [address] [place] Calcium [Mass/Vol] 10.5 mg/dL High 8.5-10.2 [facility] Comment on above: Order Comment: Speci men Type: BLOOD SPECIMENOrdering Facility: [facility] Address: [address] [place] [address] Performed By: #### L IPNF, 57946-2 ####[facility] LABCLIA [id number] [place] [address] [place] Chloride [Moles/Vol] 103 mmol/L Normal 98-107 [facility] Comment on above: Order Comment: Speci men Type: BLOOD SPECIMENOrdering Facility: [facility] Address: [address] [place] [address] Performed By: #### L IPNF, 41335-7 ####[facility] LABCLIA [id number] [place] [address] [place] CO2 [Moles/Vol] 28 mmol/L Normal 22-30 [facility] Comment on above: Order Comment: Speci men Type: BLOOD SPECIMENOrdering Facility: [facility] Address: [address] [place] [address] Performed By: #### L IPNF, 67692-4 ####[facility] LABCLIA [id number] [place] [address] [place] Creatinine [Mass/Vol] 1.00 mg/dL High 0.58-0.96 [facility] Comment on above: Order Comment: Speci men Type: BLOOD SPECIMENOrdering Facility: [facility] Address: [address] [place] [address] Performed By: #### L IPNF, 11319-6 ####[facility] LABCLIA [id number] [place] [address] [place] Creatinine and Glomerular filtration rate.predicted panel (S/P/Bld) 60 mL/min/1.73m??? Normal >=60 [facility] Comment on above: Order Comment: Speci men Type: BLOOD SPECIMENOrdering Facility: [facility] Address: [address] [place] [address] Result Comment: Antonina mated Glomerular Filtration Rate (eGFR) is calculated using the 2020 CKD-EPI creatinine equation. This equation utilizes serum creatinine, sex, and age as parameters. The creatinine assay has traceable calibration to isotope dilution-mass spectrometry. Refer to KDIGO guidelines for clinical interpretation. In patients with unstable renal function, e.g. those with acute kidney injury, the eGFR may not accurately reflect actual GFR. Performed By: #### L IPNF, 85343-1 ####[facility] LABCLIA [id number] [place] [id number] [place] Glucose [Mass/Vol] 83 mg/dL Normal 74-99 [facility] Comment on above: Order Comment: Speci men Type: BLOOD SPECIMENOrdering Facility: [facility] Address: [address] [place] [address] Result Comment: The [place] Diabetes Association (ADA) provides guidance for cutoff values for fasting glucose and random glucose. The ADA defines fasting as no caloric intake for at least 8 hours. Fasting plasma glucose results between 100 to 125 mg/dL indicate increased risk for diabetes (prediabetes). Fasting plasma glucose results greater than or equal to 126 mg/dL meet the criteria for diagnosis of diabetes. In the absence of unequivocal hyperglycemia, results should be confirmed by repeat testing. In a patient with classic symptoms of hyperglycemia or hyperglycemic crisis, random plasma glucose results greater than or equal to 200 mg/dL meet the criteria for diagnosis of diabetes. Reference: Standards of Medical Care in Diabetes 2016, [place] Diabetes Association. Diabetes Care. 2016.39(Suppl 1). Performed By: #### L IPOLAMIDE, 64132-6 ####[facility] LABIA [id number] [place] [address] [place] Potassium [Moles/Vol] 5.3 mmol/L High 3.7-5.1 [facility] Comment on above: Order Comment: Speci men Type: BLOOD SPECIMENOrdering Facility: [facility] Address: [address] [place] [id number] Performed By: #### L IPNF, 59737-2 ####[facility] LABIA [id number] [place] [id number] [place] Protein [Mass/Vol] 7.3 g/dL Normal 6.3-8.0 [facility] Comment on above: Order Comment: Speci men Type: BLOOD SPECIMENOrdering Facility: [facility] Address: [address] [place] [address] Performed By: #### L IPNF, 48449-9 ####[facility] LABCLIA [id number] [address] [address] [place] Sodium [Moles/Vol] 140 mmol/L Normal 136-144 [facility] Comment on above: Order Comment: Speci men Type: BLOOD SPECIMENOrdering Facility: [facility] Address: [address] [place] [address] Performed By: #### L IPNF, 19158-2 ####[facility] LABCLIA [id number] [place] [address] [place] Urea nitrogen [Mass/Vol] 15 mg/dL Normal 7-21 [facility] Comment on above: Order Comment: Speci men Type: BLOOD SPECIMENOrdering Facility: [facility] Address: [address] [place] [address] Performed By: #### L IPNF, 27346-7 ####[facility] LABCLIA [id number] [place] [address] [place] LIPID PANEL, NONFASTINGon Cholesterol [Mass/Vol] 175 mg/dL Normal <200 [facility] Comment on above: Order Comment: Speci men Type: BLOOD SPECIMENOrdering Facility: [facility] Address: [address] [place] [address] Result Comment: <200 mg/dL, Desirable 200-239 mg/dL, Borderline high >239 mg/dL, High Performed By: #### L IPNF, 50230-9 ####[facility] LABCLIA [id number] [place] [address] [place] HDL CHOLESTEROL, NF 54 mg/dL Normal >39 [facility] Comment on above: Order Comment: Speci men Type: BLOOD SPECIMENOrdering Facility: [facility] Address: [address] [place] [address] Result Comment: 40-5 9 mg/dL, Acceptable >59 mg/dL, High: Negative risk factor for coronary heart disease <40 mg/dL, Low: Positive risk factor for coronary heart disease Performed By: #### L IPNF, 34359-2 ####[facility] LABCLIA [id number] [address] [place] LDL CHOLESTEROL, NF 102 mg/dL High <100 [facility] Comment on above: Order Comment: Speci men Type: BLOOD SPECIMENOrdering Facility: [facility] Address: [address] [place] [address] Result Comment: <100 mg/dL, Optimal 100-129 mg/dL, Near optimal/above optimal 130-159 mg/dL, Borderline high 160-189 mg/dL, High >189 mg/dL, Very high Secondary prevention optimal LDL Cholesterol levels are recommended to be < 70 mg/dL Performed By: #### L IPNF, 13525-2 ####[facility] LABCLIA [id number] [address] [facility] LDL/HDL RATIO, NF 1.89 mg/dL Normal <2.54 [facility] Comment on above: Order Comment: Swapnili men Type: BLOOD SPECIMENOrdering Facility: [facility] Address: [address] [place] [address] Result Comment: Honorio jamison: 1. National Cholesterol Education Program ATP III Guideline At-A-Glance Quick Desk Reference: National Heart, Lung, and Blood [place]. National Institutes of Health. 2001: NIH Publication No. 01-3305. 2. An International Atherosclerosis Society position paper: global recommendations for the management of dyslipidemia: executive summary, Atherosclerosis. 2014: 232(2):410-413. Performed By: #### L IPNF, 58611-7 ####[facility] LABCLIA [id number] [place] [address] [place] NON HDL CHOL, NF 121 mg/dL Normal <130 [facility] Comment on above: Order Comment: Swapnili men Type: BLOOD SPECIMENOrdering Facility: [facility] Address: [address] [place] [address] Result Comment: <130 mg/dL, Optimal 130-159 mg/dL, Near optimal/above optimal 160-189 mg/dL, Borderline high 190-219 mg/dL, High >219 mg/dL, Very high Secondary prevention optimal non HDL Cholesterol levels are recommended to be <100 mg/dL Performed By: #### L SAIDA, ####[facility] LABCLIA [id number] [address] [place] T CHOL/HDL RATIO NF 3.24 mg/dL Normal <5.10 [facility] Comment on above: Order Comment: Speci men Type: BLOOD SPECIMENOrdering Facility: [facility] Address: [address] [place] [address] Performed By: #### L SAIDA, ####[facility] LABCLIA [id number] [place] [address] [place] [facility] TRIGLYCERIDES, NF 93 mg/dL Normal <150 [facility] Comment on above: Order Comment: Speci men Type: BLOOD SPECIMENOrdering Facility: [facility] Address: [address] [place] [address] Result Comment: <150 mg/dL, Normal 150-199 mg/dL, Borderline high 200-499 mg/dL, High >499 mg/dL, Very high Performed By: #### L SAIDA, ####[facility] LABCLIA [id number] [place] [address] [place] VLDL CHOLESTEROL, NF 19 mg/dL Normal <30 [facility] Comment on above: Order Comment: Speci men Type: BLOOD SPECIMENOrdering Facility: [facility] Address: [address] [place] [address] Performed By: #### L IPOLAMIDE, ####[facility] LABCLIA [id number] [place] [address] [place] CNPMaria Guadalupe 11-11-2024 [facility]N [facility] LAURYN BANG ([id number]) 1950 F Date Time Provider Department 11/11/24 PERRY BAUTISTA During your visit today, we recorded the following information about you: Nori Valenzuela MA 11/11/2024 10:08 AM Signed ----- Message from Perry Bautista MD sent at 11/10/2024 2:14 PM EST ----- Negative mammogram. Repeat in 1 year. Nori Valenzuela MA 11/11/2024 10:09 AM Signed Pt notified of results via [employer]. Nori Valenzuela Ma Allergies As of Date: 11/11/2024 Noted Allergy Reaction MARCAINE-EPINEPHRINE (BUPIVACAINE*07/11/20 23 12 - Shortness of Breath 18 - Angioedema Comments: Tolerates Lidocaine/Epinephrine AUGMENTIN (AMOXICILLIN-POT CLAVUL*06/20/2005 6 - Diarrhea BACTRIM (SULFAMETHOXAZOLE) 12/13/2012 8 - GI Upset DOXYCYCLINE 02/25/2015 2 - Rash ERYTHROMYCIN 03/31/2008 Comments: unknown MELOXICAM SUBMICRONIZED 11/17/2022 8 - GI Upset RONDEC (BROMPHENIRAMINE-PSEU DOEPH*03/31/2008 16 - Unknown Comments: Date Reviewed: 10/14/2024 Reviewed by: Rojas Kelly, PLYWOOD PATCHER.METALLURGICAL ENGINEERING TECHNICIAN - Fully Assessed Reason for Visit: Results [95] Prescriptions as of 11/11/2024 - metoprolol succinate ER (TOPROL XL) 25 mg 24 hr tablet Take 1 tablet by mouth once daily. - CRANBERRY ORAL Take by mouth. - estradiol 0.01 % (0.1 mg/g) vaginal cream Apply pea-sized amount to urethral opening twice a week. - multivitamin ORAL tablet Take 1 tablet by mouth once daily. Problem List As Of Date 11/11/2024 Noted Resolved BENIGN NEOPLASM LG BOWEL [D12.6] 06/04/2008 Chronic interstitial cystitis [N30.10] 06/26/2009 Osteoporosis [M81.0] 04/01/2010 Heart murmur [R01.1] 10/20/2010 Nontoxic multinodular goiter [E04.2] 10/20/2010 Eczematous dermatitis [L30.9] 04/21/2012 Contact dermatitis and other eczema, due to uns*04/21/2012 Pruritus [L29.9] 04/21/2012 Urticaria [L50.9] 04/21/2012 Rash and other nonspecific skin eruption [R21] 04/21/2012 05/07/2024 Ganglion cyst [M67.40] 03/11/2019 Enlarged thyroid gland [E04.9] 10/10/2019 Multiple thyroid nodules [E04.2] 10/10/2019 Lumbar pain [M54.50] 10/21/2022 Left hip pain [M25.552] 10/21/2022 Palpitations [R00.2] 07/03/2023 Nonrheumatic mitral valve regurgitation [I34.0] 07/03/2023 Other chest pain [R07.89] 07/03/2023 Encounter for screening for malignant neoplasm *12/07/2023 Encounter Status:Closed by NORI VALENZUELA on 11/11/24 Normal [facility] DBT Breast - bilateral scree rissan 11-08-2024 IMPRESSION: There is no mammographic evidence of malignancy in either breast. Routine screening mammogram is recommended. Annual mammogram will be due in 1 year. BI-RADS Category 1: Negative RISK: Based on the Tyrer-Cuzick (TC) risk assessment model, this patient has a 12.7% lifetime risk of developing breast cancer, meaning they are at average risk for developing breast cancer. However, this is only an estimate based on available history provided on the patient's questionnaire. We encourage all patients to talk with their providers about these results, further recommendations for managing breast health, and appropriate supplemental screening options if the patient has dense breast tissue. Interpreting Radiologist: Abel Ellsworth M.D. Electronically signed on: 11/08/2024 Accident Examiner: JERALD Transcribe Date/Time: Nov 08 2024 10:47A Dictated by: ABEL ELLSWORTH MD This examination was interpreted and the report reviewed and electronically signed by: ABEL ELLSWORTH MD on Nov 08 2024 12:52PM [facility] DIVISION OF RADIOLOGY * * *Final Report* * * DATE OF EXAM: Nov 08 2024 10:56AM [facility] 0582 - [facility] SCREENING W GIANLUCA / PROCEDURE REASON: Encounter for screening mammogram for breast cancer * * * * Physician Interpretation * * * * RESULT: [facility] [address] [place] [address] #[id number] - [facility] SCREENING W GIANLUCA HISTORY: 73 year-old patient seen for screening and is asymptomatic in both breasts. Patient states no personal history of breast cancer. Patient states no personal history of other cancers. COMPARISON STUDIES: The present examination has been compared to prior imaging studies dated 05/28/2018 (mammogram), 07/31/2020 (mammogram), 08/18/2022 (mammogram) and 09/13/2023 (mammogram). MAMMOGRAM TECHNIQUE: The study was acquired using full field digital technology and interpreted from soft copy. Digital Breast Tomosynthesis (DBT) images were obtained and used to assist in the interpretation of this examination. MAMMOGRAM FINDINGS: The breasts are heterogeneously dense, which may obscure small masses. No suspicious masses, calcifications or other abnormalities are seen in either breast. There are no significant interval changes. DIVISION OF RADIOLOGY Provider, [facility] - 11/08/2024 * * *Final Report* * * DATE OF EXAM: Nov 08 2024 10:56AM [facility] 0582 - [facility] SCREENING W GIANLUCA / PROCEDURE REASON: Encounter for screening mammogram for breast cancer * * * * Physician Interpretation * * * * [facility] [facility] [address] [place] [address] #[id number] - TINO SCREENING W GIANLUCA HISTORY: 73 year-old patient seen for screening and is asymptomatic in both breasts. Patient states no personal history of breast cancer. Patient states no personal history of other cancers. COMPARISON STUDIES: The present examination has been compared to prior imaging studies dated 05/28/2018 (mammogram), 07/31/2020 (mammogram), 08/18/2022 (mammogram) and 09/13/2023 (mammogram). MAMMOGRAM TECHNIQUE: The study was acquired using full field digital technology and interpreted from soft copy. Digital Breast Tomosynthesis (DBT) images were obtained and used to assist in the interpretation of this examination. MAMMOGRAM FINDINGS: The breasts are heterogeneously dense, which may obscure small masses. No suspicious masses, calcifications or other abnormalities are seen in either breast. There are no significant interval changes. IMPRESSION IMPRESSION: There is no mammographic evidence of malignancy in either breast. Routine screening mammogram is recommended. Annual mammogram will be due in 1 year. BI-RADS Category 1: Negative RISK: Based on the Tyrer-Cuzick (TC) risk assessment model, this patient has a 12.7% lifetime risk of developing breast cancer, meaning they are at average risk for developing breast cancer. However, this is only an estimate based on available history provided on the patient's questionnaire. We encourage all patients to talk with their providers about these results, further recommendations for managing breast health, and appropriate supplemental screening options if the patient has dense breast tissue. Interpreting Radiologist: Abel Ellsworth M.D. Electronically signed on: 11/08/2024 Accident Examiner: JERALD Transcrielva Date/Time: Nov 08 2024 10:47A Dictated by: ABEL ELLSWORTH MD This examination was interpreted and the report reviewed and electronically signed by: ABEL ELLSWORTH MD on Nov 08 2024 12:52PM [facility] Radiology Study observation (narrative) [facility] - bilateral scree ningOrdered By: Ccf Provider on 11-08-2024 [facility] TINO SCREENING W TOMOon 11-08 TINO SCREENING W GIANLUCA * * *Final Report* * * DATE OF EXAM: Nov 08 2024 10:56AM [id number] - TINO SCREENING W GIANLUCA / PROCEDURE REASON: Encounter for screening mammogram for breast cancer * * * * Physician Interpretation * * * * RESULT: [place] [address] [id number] #[id number] - TINO SCREENING W GIANLUCA HISTORY: 73 year-old patient seen for screening and is asymptomatic in both breasts. Patient states no personal history of breast cancer. Patient states no personal history of other cancers. COMPARISON STUDIES: The present examination has been compared to prior imaging studies dated 05/28/2018 (mammogram), 07/31/2020 (mammogram), 08/18/2022 (mammogram) and 09/13/2023 (mammogram). MAMMOGRAM TECHNIQUE: The study was acquired using full field digital technology and interpreted from soft copy. Digital Breast Tomosynthesis (DBT) images were obtained and used to assist in the interpretation of this examination. MAMMOGRAM FINDINGS: The breasts are heterogeneously dense, which may obscure small masses. No suspicious masses, calcifications or other abnormalities are seen in either breast. There are no significant interval changes. IMPRESSION: There is no mammographic evidence of malignancy in either breast. Routine screening mammogram is recommended. Annual mammogram will be due in 1 year. BI-RADS Category 1: Negative RISK: Based on the Tyrer-Cuzick (TC) risk assessment model, this patient has a 12.7% lifetime risk of developing breast cancer, meaning they are at average risk for developing breast cancer. However, this is only an estimate based on available history provided on the patient's questionnaire. We encourage all patients to talk with their providers about these results, further recommendations for managing breast health, and appropriate supplemental screening options if the patient has dense breast tissue. Interpreting Radiologist: Abel Ellsworth M.D. Electronically signed on: 11/08/2024 Accident Examiner: JERALD Transcribe Date/Time: Nov 08 2024 10:47A Dictated by: ABEL ELLSWORTH MD This examination was interpreted and the report reviewed and electronically signed by: ABEL ELLSWORTH MD on Nov 08 2024 12:52PM EST [id number] Normal [facility] Mario 10-15-2024 CNPN Telephone (FAMPWS) LAURYN BANG ([id number]) 1950 F Date Time Provider Department 10/15/24 PERRY BAUTISTA During your visit today, we recorded the following information about you: Ayanna Borjas LPN 10/15/2024 11:53 AM Signed Pt reports she was seen in yesterday and did a viral panel which came back neg. Pt reports she has had sx x 6 days and today feels worse than she had been feeling. Pt reports a lot of nasal congestion with yellow mucus, sinus pressure, body fatigue, cough. The difference between yesterday and today is the sinus pressure, yellow mucus and body fatigue. Pt denies fever. Pt now feels she may have a sinus infection which was discussed with UC provider. Pt was advised to f/u with pcp as needed. Pt is asking if a Z-karen could be ordered for her. Pt reports she has no energy to come back for appt or virtual. Please review and advise. MARIBELL Mason Christopher B, MD 10/15/2024 12:13 PM Signed Based on her reported symptoms and length of illness, I would not treat her for sinus infection at this time. I would have her continue supportive care as discussed in EC and f/u in 1 week if not improving. May use OTC flonase, nasal saline rinses, or neti pot for nasal congestion and runny nose. Angie Michelle LPN 10/15/2024 12:56 PM Signed Phoned patient went over notes below from Dr Bautista with understanding. Allergies As of Date: 10/15/2024 Noted Allergy Reaction MARCAINE-EPINEPHRINE (BUPIVACAINE*07/11/20 12 - Shortness of Breath 18 - Angioedema Comments: Tolerates Lidocaine/Epinephrine AUGMENTIN (AMOXICILLIN-POT CLAVUL*06/20/2005 6 - Diarrhea BACTRIM (SULFAMETHOXAZOLE) 12/13/2012 8 - GI Upset DOXYCYCLINE 02/25/2015 2 - Rash ERYTHROMYCIN 03/31/2008 Comments: unknown MELOXICAM SUBMICRONIZED 11/17/2022 8 - GI Upset RONDEC (BROMPHENIRAMINE-PSEU DOEPH*03/31/2008 16 - Unknown Comments: Date Reviewed: 10/14/2024 Reviewed by: Rojas Kelly, PLYWOOD PATCHER.METALLURGICAL ENGINEERING TECHNICIAN - Fully Assessed Reason for Visit: Medication Request [138] Prescriptions as of 10/15/2024 - metoprolol succinate ER (TOPROL XL) 25 mg 24 hr tablet Take 1 tablet by mouth once daily. - CRANBERRY ORAL Take by mouth. - estradiol 0.01 % (0.1 mg/g) vaginal cream Apply pea-sized amount to urethral opening twice a week. - multivitamin ORAL tablet Take 1 tablet by mouth once daily. 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.2] 10/20/2010 Eczematous dermatitis [L30.9] 04/21/2012 Contact dermatitis and other eczema, due to uns*04/21/2012 Pruritus [L29.9] 04/21/2012 Urticaria [L50.9] 04/21/2012 Rash and other nonspecific skin eruption [R21] 04/21/2012 05/07/2024 Ganglion cyst [M67.40] 03/11/2019 Enlarged thyroid gland [E04.9] 10/10/2019 Multiple thyroid nodules [E04.2] 10/10/2019 Lumbar pain [M54.50] 10/21/2022 Left hip pain [M25.552] 10/21/2022 Palpitations [R00.2] 07/03/2023 Nonrheumatic mitral valve regurgitation [I34.0] 07/03/2023 Other chest pain [R07.89] 07/03/2023 Encounter for screening for malignant neoplasm *12/07/2023 Encounter Status:Closed by ANGIE MICHELLE on 10/15/24 [facility] 10-14-2024 CNOV Office Visit (UCWSTR ) LAURYN BANG ([id number]) 1950 F Date Time Provider Department 10/14/24 4:15 PM ROJAS KELLY [facility] During your visit today, we recorded the following information about you: Temperature Pulse Respiration Blood pressure 99.3 degrees 90/minute 19/minute 100/74 Weight 75.2 kg Rojas Kelly, NEPTALI.METALLURGICAL ENGINEERING TECHNICIAN 10/14/2024 3:45 PM Signed This note was created using Splick.itriter. Subjective Lauryn Bang is a 73 year old female. HPI For the last five days pt has had runny nose with thick bloody mucous. She does note a previous history of sinus infections but states that this does not feel similar to those. She denies any chest congestion. Review of Systems Constitutional: Positive for fever. HENT: Positive for congestion, postnasal drip, sinus pressure and sinus pain. Respiratory: Positive for cough. Objective BP 100/74 Pulse 90 Temp 37.4 ?C (99.3 ?F) Resp 19 Wt 75.2 kg (165 lb 12.6 oz) SpO2 95% BMI 28.46 kg/m? Physical Exam Vitals and nursing note reviewed. Constitutional: General: She is not in acute distress. Appearance: Normal appearance. She is not ill-appearing. HENT: Head: Normocephalic. Mouth/Throat: Mouth: Mucous membranes are moist. Eyes: Conjunctiva/sclera: Conjunctivae normal. Cardiovascular: Rate and Rhythm: Normal rate and regular rhythm. Pulmonary: Effort: Pulmonary effort is normal. Breath sounds: Normal breath sounds. Musculoskeletal: General: Normal range of motion. Cervical back: Normal range of motion. Skin: General: Skin is warm and dry. Neurological: General: No focal deficit present. Mental Status: She is alert. Psychiatric: Mood and Affect: Mood normal. Behavior: Behavior normal. Assessment and Plan ASSESSMENT/PLAN: 1. Nasal congestion - ICD9: 478.19, ICD10: R09.81 Discussion patient does not feel as though she is developing a sinus infection. We did discuss possible chest x-ray but she denies feeling any congestion in her chest. She would be interested in being tested for influenza and COVID however as she has already had 5 days of symptoms she is not a candidate for treatment of either. Will continue to use [id number] cough and cold medications and follow-up with PCP as needed. - COVID AND INFLUENZA A/B AND RSV PCR, ROUTINE Rojas Kelly APRN.CNP Allergies As of Date: 10/14/2024 Noted Allergy Reaction MARCAINE-EPINEPHRINE (BUPIVACAINE*07/11/20 12 - Shortness of Breath 18 - Angioedema Comments: Tolerates Lidocaine/Epinephrine AUGMENTIN (AMOXICILLIN-POT CLAVUL*06/20/2005 6 - Diarrhea BACTRIM (SULFAMETHOXAZOLE) 12/13/2012 8 - GI Upset DOXYCYCLINE 02/25/2015 2 - Rash ERYTHROMYCIN 03/31/2008 Comments: unknown MELOXICAM SUBMICRONIZED 11/17/2022 8 - GI Upset RONDEC (BROMPHENIRAMINE-PSEU DOEPH*03/31/2008 16 - Unknown Comments: Date Reviewed: 10/14/2024 Reviewed by: Rojas Kelly 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 #:[id number] Prescriptions as of 10/14/2024 - metoprolol succinate ER (TOPROL XL) 25 mg 24 hr tablet Take 1 tablet by mouth once daily. - CRANBERRY ORAL Take by mouth. - estradiol 0.01 % (0.1 mg/g) vaginal cream Apply pea-sized amount to urethral opening twice a week. - multivitamin ORAL tablet Take 1 tablet by mouth once daily. Problem List As Of Date 10/14/2024 Noted Resolved BENIGN NEOPLASM LG BOWEL [D12.6] 06/04/2008 Chronic interstitial cystitis [N30.10] 06/26/2009 Osteoporosis [M81.0] 04/01/2010 Heart murmur [R01.1] 10/20/2010 Nontoxic multinodular goiter [E04.2] 10/20/2010 Eczematous dermatitis [L30.9] 04/21/2012 Contact dermatitis and other eczema, due to uns*04/21/2012 Pruritus [L29.9] 04/21/2012 Urticaria [L50.9] 04/21/2012 Rash and other nonspecific skin eruption [R21] 04/21/2012 05/07/2024 Ganglion cyst [M67.40] 03/11/2019 Enlarged thyroid gland [E04.9] 10/10/2019 Multiple thyroid nodules [E04.2] 10/10/2019 Lumbar pain [M54.50] 10/21/2022 Left hip pain [M25.552] 10/21/2022 Palpitations [R00.2] 07/03/2023 Nonrheumatic mitral valve regurgitation [I34.0] 07/03/2023 Other chest pain [R07.89] 07/03/2023 Encounter for screening for malignant neoplasm *12/07/2023 Encounter Status:Closed by ROJAS KELLY on 10/14/24 Normal [facility] COVID AND INFLUENZA A/B AND RSV PCR, ROUTINEon 10-14-2024 SARS-CoV-2 (COVID-19) RNA REA+probe Ql (Unsp spec) SARS-COV-2 (AGENT OF COVID-19) RNA: Not detected INFLUENZA A RNA: Not detected INFLUENZA B RNA: Not detected RESPIRATORY SYNCYTIAL VIRUS (RSV) RNA: Not detected Normal [facility] Comment on above: Performed By: #### C VFLRS ####[facility] LABCLIA [id number] [address] [place] ECHOon 07-19-2024 Echocardiography Echocardiography Report: Transthoracic Echo [facility] Date of service: 07/19/2024 9:29:45 AM COORDINATOR Ordering physician: BETY IGLESIAS Indication: Routine surveillance of moderate or severe valvular regurgitation (>1yr) Symptom(s): Palpitations Technologist: Bette Hargrove [facility] Interpreting physician: Sami Gibson DO PATIENT: Name: MRS. LAURYN BANG : 1950 Age: 73 years Gender: F Primary rhythm: sinus. Height: 162.60 cm BSA: 1.82 m Weight: 73.48 kg BMI: 27.8 kg/m Heart rate 69 bpm Blood pressure 110/62 mmHg Color Doppler was utilized to interrogate the cardiac valves assessed and spectral Doppler was utilized to determine the flow velocities and pressure gradients reported in this exam. Myocardial strain analysis was performed in this exam to aid in the assessment of cardiac function. MEASUREMENTS: Value Indexed Normal Max aortic dimension 2.8 cm Ao < 3.8 Left atrial volume 122 ml (biplane A-L) 67 ml/m Helen <= 34 LV ID (diastole) 4.9 cm (2D) 2.69 cm/m LV ID (systole) 3.4 cm (2D) 1.85 cm/m IVS, leaflet tips 1.1 cm (2D) Posterior wall thickness 0.9 cm (2D) Left ventricular mass 180 g (2D) 99 g/m Global peak long strain -19.5 % LV stroke volume 69 ml (2D biplane) LV end diastolic volume 123 ml (2D biplane) 67.3 ml/m 29<=EDVi<62 LV end systolic volume 54 ml (2D biplane) 29.5 ml/m Ejection Fraction 56 % (2D biplane) EF > 54 FINDINGS: LEFT VENTRICLE The left ventricle is mildly dilated. Left ventricular systolic function is normal. Global LV myocardial strain is normal. Left ventricular diastolic function was not evaluated due to >2+ MR. Mitral annular lateral E/e': 5.1. Mitral annular septal E/e': 7.6. Wall Motion: All scored segments are normal. RIGHT VENTRICLE The right ventricle is normal in size. Right ventricular systolic function is normal. RV systolic tissue Doppler velocity is 12.0 cm/s. Tricuspid annular displacement is 1.8 cm. Estimated right ventricular systolic pressure is 25 mmHg consistent with normal pulmonary artery pressures. Estimated right atrial pressure is 3 mmHg (although IVC not seen). LEFT ATRIUM The left atrial cavity is severely dilated. Pulmonary Veins: The pulmonary venous pattern showed reversed systolic flow. RIGHT ATRIUM The right atrial cavity is normal in size. 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 There is no thickening. There is prolapse of the anterior and posterior mitral leaflets. Regurgitant orifice area (PISA) is 0.28 cm . The pressure half time is 37 msec. The peak mitral E/A ratio is 1.20. The average mitral E/e' ratio is 6.4. The mitral flow deceleration time is 128 msec. TRICUSPID VALVE The tricuspid valve leaflets are structurally normal. There is mild (1+) tricuspid valve regurgitation. AORTIC VALVE The aortic valve cusps are structurally normal. There is trace (trace - 1+) aortic valve regurgitation. Tricuspid aortic valve. The peak gradient is 10 mmHg (peak velocity = 156.0 cm/s). PULMONIC VALVE The pulmonic valve cusps are structurally normal. There is trace (trace - 1+) pulmonic valve regurgitation. AORTA The visualized aorta is normal in size. Measurements - Mid ascending aorta 2.8 cm. PERICARDIUM There is no pericardial effusion. There is an epicardial fat pad. CONCLUSIONS: - Exam indication: Routine surveillance of moderate or severe valvular regurgitation (>1yr) - The left ventricle is mildly dilated. Left ventricular systolic function is normal. EF = 56 5% (2D biplane) Left ventricular diastolic function was not evaluated due to >2+ MR. - The right ventricle is normal in size. Right ventricular systolic function is normal. - The left atrial cavity is severely dilated. 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 Regurgitant orifice area (PISA) is 0.28 cm . - Exam was compared with the prior CC echocardiographic exam performed on 07/11/2023, no significant change. * * * Final * * * [employer] [facility] Image : [id number] amicsSISUID Normal [facility] Emergency Department Summary on 05-07-2024 Emergency Department Summary [facility] Medical Records Department [address] [place] [address] Emergency Department Summary 05/07/24 MR#: [id number] Acct: [id number] Name: VELIA BANG Rep #: [id number] : 1950 73 From: Suhas Davis MD PCP: CLARE Mac Status:PRE ER Location: ED HPI History of Present Illness Chief Complaint: Allergic Reaction Informant: patient and spouse/S.O. Narrative Narrative: 73-year-old female presenting with hives and trouble sleeping because she is itching so much. She states this has been going on for 2 weeks. She thinks it started around the time she was eating some peaches at that bot, and some blueberries that she ate from a new farm where she was picking them and thought maybe it was something that was on them. She stopped that but the hives persist. She states when it started it was where the elastic band for her underwear is and the underwire of her bra and she has had elastic band reactions in the past. However it has spread to her legs and her arms. 3 days ago she went to urgent care because her vagina was itching to and she was not sure if she had hives there but she denied any discharge. She was given fluconazole to cover her for yeast, she did a self swab and they tested it and she was then treated for bacterial vaginosis with Flagyl which she is now taking and in addition all of this she was spreading triamcinolone cream on the rash which was not helping. Nothing is worse now she just looking for solutions. She presents at 3 AM and states she has an appointment with her trailhead construction worker later today. She has taken no Benadryl she states it makes her really sleepy. [facility] Medical History (Updated 05/07/24 @ 03:[address] Suhas Davis MD) Goiter Mitral valve prolapse Enlarged thyroid gland Home Medications ???Medication ???Instructions ???Recorded ???Last Taken ???Type cranberry 400 mg capsule 400 mg PO DAILY 10/28/17 Unknown History estradiol 0.01% (0.1 mg/gram) 1 appful vaginal QWEEK 05/07/24 Unknown History vaginal cream fluconazole 150 mg tablet 150 mg PO X1 05/07/24 Unknown History melatonin 1 mg tablet 1 mg PO QHS 05/07/24 Unknown History metoprolol succinate 25 mg 25 mg PO DAILY 05/07/24 Unknown History tablet,extended release 24 hr metronidazole 0.75 % topical gel 1 applic topical BID 05/07/24 Unknown History metronidazole 500 mg tablet 500 mg PO BID 05/07/24 Unknown History multivitamin (Daily Multi-Vitamin 1 tab PO DAILY 05/07/24 Unknown History tablet) prednisone 20 mg tablet 40 mg (2 x 20 mg) PO DAILY 6 days 05/07/24 Unknown Rx #12 TABLETS Allergy/AdvReac Type Severity Reaction Status Date / Time doxycycline Allergy Rash Verified 05/07/24 02:56 lidocaine Allergy Anaphylaxis Verified 05/07/24 02:56 brompheniramine AdvReac Unknown PT UNSURE Verified 05/07/24 02:56 OF REACTION amoxicillin (From Augmentin) AdvReac Diarrhea Verified 05/07/24 02:56 bupivacaine AdvReac Angioedema Verified 05/07/24 02:56 carbinoxamine (From Rondec) AdvReac Rash Verified 05/07/24 02:56 clavulanic acid (From AdvReac Diarrhea Verified 05/07/24 02:56 Augmentin) clotrimazole AdvReac Hives Verified 05/07/24 02:56 epinephrine AdvReac Shortness Verified 05/07/24 02:56 of breath erythromycin base (From AdvReac Diarrhea Verified 05/07/24 02:56 E-Mycin) meloxicam AdvReac Diarrhea Verified 05/07/24 02:56 pseudoephedrine (From Rondec) AdvReac Rash Verified 05/07/24 02:56 Social History Smoking Status: Never smoker ROS ROS ED Constitutional Constitutional ED: Denies chills or fever(s) Eyes Eyes: Denies change in vision or diplopia ENT ENT ED: Denies rhinorrhea or sore throat Cardiovascular Cardiovascular: Denies chest pain or palpitations Respiratory/Chest Respiratory/Chest: Denies cough or dyspnea Gastrointestinal Gastrointestinal: Denies abdominal pain, diarrhea, nausea or vomiting Genitourinary Genitourinary ED: Denies dysuria or hematuria Musculoskeletal Musculoskeletal: Reports other Details: Anterior neck soreness status post recent thyroid biopsy ; Denies back pain Integumentary Reports as per HPI, pruritus and rash; Denies abscess Neurologic Neurologic: Denies headache(s), paresthesias or weakness Psychiatric Psychiatric: Denies suicidal thoughts EXAM Physical Exam Const Vital Signs: 05/07/24 02:40 05/07/24 02:47 Temperature 97.8 F 97.8 F Temperature Source Oral Oral Pulse Rate 83 84 Respiratory Rate 17 16 Blood Pressure 159/107 H 159/107 H Blood Pressure Mean 124 124 Pulse Ox 99 99 Oxygen Delivery Method Room Air Room Air Positive well nourished and well developed General Appearance ED: well developed and NAD HEENT Reports moist mucous membranes HEENT Narrative: No stridor or dysphonia. normo (more content not included)... Normal [facility] No Panel Informationon 05-06 [facility] PT D/C Summary (1)on 024 PT D/C Summary (1) [facility] Physical Therapy [facility] [address] [place] [address] / REHABILITATION SERVICES DISCHARGE SUMMARY MR#: [id number] Acct: [id number] Name: VELIA BANG Rep #: [id number] : 1950 73 From: Shanell Henson PT, Cert. MDT Referring Dr.: Dr. Sheela Perez MD Status: RE G R Insurance: [facility] SELF PAY INSURANCE Discharge Summary D/C summary: It has been my pleasure to treat VELIA BANG referred by Dr. Sheela Perez MD, with the diagnosis of RETROCELE WITH LOW BACK PAIN for a total of 9 visit(s). Discharge Date: 03/29/24 Please see the following information for a summary of their discharge status. Subjective Subjective: THIS HAS REALLY REALLY HELPED. PATIENT REPORTS SHE IS LEAVING FOR A TRIP TO [place] AND SHE IS NOT GOING TO WEAR PROTECTION AND SHE IS NOT WORRIED ABOUT IT. STATES SHE SLEPT THROUGH THE NIGHT LAST THE NIGHT. HAS BEEN MULCHING AND MANAGING LOW BACK BETTER. HASN'T HAD ANY URINARY LEAKING FOR ABOUT A MONTH OR MORE. FEELS READY TO BE DISCHARGED. PATIENT REPORTS EVEN HER BOWEL MVMTS HAVE BEEN BETTER AND SHE ISN'T HAVING ANY PROBLEMS WITH THE BOWEL MVMTS GETTING STUCK NOW. Pain LOW BACK PAIN: Pain Intensity (Out of 10): 0 LLE PAIN: Pain Intensity (Out of 10): 0 Overall Improvement % Improvement: 95 Objective Objective/Function: ALL GOALS MET. THIS PATIENT HAS DONE REALLY WELL WITH PHYSICAL THERAPY AND SHE IS APPROPRIATE FOR AND AGREEABLE TO DISCHARGE TO [facility] AT THIS TIME. FUNCTIONAL SCREEN: Incontinence Impact Questionnaire Score: 0 Urogenital Distress Inventory Score: 1 Goals Goal 1:: DECREASE C/O LBP BY AT LEAST 50% TO EASE ADL'S. Goal Progress: Goal Met Goal 2:: DECREASE URINARY LEAKAGE EPISODES TO ONE OR LESS PER DAY Goal Progress: Goal Met Goal 3:: PATIENT WILL SUCCESSFULLY DELAY VOIDING LONG NEEDED WHEN URGENCY OCCURS TO SUCCESSFULLY MAKE IT TO THE BATHROOM. Goal Progress: Goal Met Goal 4:: PATIENT WILL DEMONSTRATE/COMMUNICA TE 10 CONSISTENT AND CONSECUTIVE 10 SECOND PELVIC FLOOR MUSCLE CONTRACTIONS TO DEMONSTRATE IMPROVED PELVIC FLOOR ENDURANCE. Goal Progress: Goal Met Goal 5:: DEVELOP HEALTHY FLUID INTAKE HABITS WITH FLUID INTAKE OF ??? BODY WEIGHT IN OUNCES PER DAY AND 2/3 BEING WATER AND NORMALIZE VOIDING FREQUENCEY TO EVERY 3-4 HOURS. Goal Progress: Goal Met Goal 6:: PATIENT WILL BE INDEP WITH A HEP/HOME INSTRUCTIONS FOR CONTINUED IMPROVEMENT ONCE [facility] CONCLUDES. Goal Progress: Goal Met Plan Plan: D/C D/C Information d/c sentence: If there are questions or concerns regarding this patient's physical therapy, please feel free to call me at [phone]. Thank you for the referral of this patient. Sincerely, Shanell Henson PT, Cert MDT Balance/Gait/Function al tests Balance/Special Test Scores Oswestry Low Back Score: 9 Improvement % Improvement: 95 03/29/24 1358 CC: CLARE Goldberg Podlogar; Dr. Sheela Perez MD MARNIE Signed Normal [facility] Inital Evaluation (1) - PTon 01-31-2024 Inital Evaluation (1) - PT [facility] Physical Therapy [facility] [address] [place] [address] [address] [place] [address] / REHABILITATION SERVICES INITIAL EVALUATION MR#: [id number] Acct: [id number] Name: VELIA BANG Rep #: [id number] : 1950 73 From: Shanell Henson PT, Cert. MDT Referring Dr.: Dr. Sheela Perez MD Status: [facility] Insurance: [facility] SELF PAY INSURANCE Patient's Visit Information Visit Information Visit Information: VELIA BANG is a 73 year old F referred to Physical Therapy by Dr. Sheela Perez MD with a diagnosis of RETROCELE WITH LOW BACK PAIN. Date of Evaluation: 01/22/24 Physical Therapist: Shanell A Cross, PT, Cert MDT Visit Plan Frequency: 1-2x /Week Duration: 2-4 Months Plan: PF THERAPY FOR STRENGTHENING, LENGTHENING/RELAXATIO N AND ENDURANCE TRAINING. URINARY URGE AND FREQUENCY EDUCATION. HEALTHY BLADDER HABIT EDUCATION. TRAINING IN COORDINATION OF PELVIC FLOOR MUSCULATURE WITH HIP AND CORE (TRANSVERSE ABDOMINUS) MUSCULATURE. CORE STRENGTHENING. GARY LE ROM, STRETCHING AND STRENGTHENING. TRAINING IN ABDOMINAL CAVITY PRESSURE MGMT WITH ADL'S. Subjective Subjective: Work/Leisure: RETIRED. . LIVES IN 2 STORY HOME. 2 CHILDREN. VAGINAL DELIVERIES. NO COMPLICATIONS WITH DELIVERIES. Present symptoms: INTERMITTENT LOW BACK PAIN. INTERMITTENT LLE PAIN, NUMBNESS AND TINGLING. URINARY URGENCY, FREQUENCY AND URINARY INCONTINENCE. FEELS BULGING FROM DX OF RETROCELE ONLY WHEN PUTS VAGINAL CREAM IN. INTERMITTENT DIFFICULTY WITH BOWEL MVMTS. Present since: UI FOR YEARS. BACK - SEP 2022. BOWEL - ABOUT 6 MONTHS AGO. Pain Scale: LBP: WORST 8/10, LEAST 0/10. NO PELVIC FLOOR PAIN. Currently: 10/18. Is it getting better, worse or staying the same: STAYING THE SAME. Commenced as a result of: SITTING ON A HARD BENCH BROUGHT BACK PAIN ON. Worse: PROLONGED STANDING, BENDING (WEEDING) AND SITTING INCREASE LBP, RISING FROM SITTING PROVOKES URINARY URGENCY AT TIMES, SOMETIMES BENDING CAUSES UI. RIDING IN THE CAR PROVOKES URINARY FREQUENCY. Better: AVOIDING ICE TEA - HELPS FREQUENCY. BACK EXERCISES - CORE EX'S ON SB Disturbed sleep: GETTING UP 2-3 TIMES AT NIGHT TO URINATE. BACK PAIN IS NOT DISTURBING SLEEP. Previous history/Previous treatment: H/O UTI'S WITH THE LAST ONE BEING ABOUT 8 MONTHS AGO. TAKING CRANBERRY PILLS. SEEING 2 UROLOGISTS. PAIN MGMT WITH THE [facility] 2022 AND THAT IS WHEN SHE DID PHYSICAL THERPAY. MAINLY TREATED WITH PT. NO BACK SURGERY OR KELTON'S. Treatment this episode: CRANBERRY PILLS AND PRESCRIPTION VAGINAL CREAM FOR UTI PREVENTION. HEP FOR BACK. Coughing/sneezing/str aining: NEGATIVE FOR BACK PAIN. POSITIVE Occasionally for UI. Gait: NORMAL - WALKING EVERY OTHER DAY FOR EX. How long can you delay the need to urinate: ABOUT 10 MIN. Prolapse (Falling out feeling): NO Frequency of Urination: PATIENT IS UNABLE TO ANSWER. SHE DESCRIBES SOME JUST IN CASE VOIDING AND STATES THAT DR. PEREZ TOLD HER TO GO EVERY 2 HOURS BUT SHE ISN'T SURE IF SHE DOES. Ability to stop urine flow: YES Ability to initiate urine stream: YES Dyspareunia: NO Bowel Incontinence: NO Accidents: NO Unexplained weight loss: NO Imaging: MRI LUMBAR LAST YEAR 2022 - PER PATIENT REPORT. PMH/Recent major surgery: OSTEOPOROSIS. HEART MURMER, GOITER, HYSTERECTOMY 2007. Objective Objective: Sitting/Standing Posture: POOR. FORWARD HEAD. ROUNDED SHOULDERS. NORMAL LUMBAR LORDOSIS. NO RELEVANT LATERAL SHIFT. Active Correction of posture: NE. ABLE TO CORRECT. DOES NOT MAINTAIN. Other Observations: THIS PATIENT AMBULATES INDEP'LY INTO PT WITHOUT ANY AD'S OR LOB. SHE IS ABLE TO INDEP'LY TRANSFER FROM SIT TO STAND AND REVERSE WITHOUT UE ASSIST. Sensory deficit: GARY LE LIGHT TOUCH SENSATION IS GROSSLY INTACT AND SYMMETRICAL ROM deficit: GARY HS, HIP ADD AND HIP ROTATOR TIGHTNESS: IR TIGHTNESS L HIP > R AND ER TIGHTNESS R HIP > L. GARY GASTROC-SOLEUS TIGHTNESS. Motor deficit: R HIP 4/5, KNEE 4/5, ANKLE 5/5. L HIP 4-/5, L KNEE 4-/5, ANKLE 5/5. INTERNAL MANUAL VAGINAL PELVIC FLOOR TESTING REVEALS 3/5 STRENGTH X 4 SEC X 3 REPS. Reflexes: 0 R LE, 1+ L LE. Dural Signs: NEGATIVE GARY LE'S. Lumbar mvmt loss: flex - NIL - DECREASES - B ext - MIN - INCREASES CENTRAL LBP - NW R SG - MIN - NE L SG - MIN - NE Core strength: FAIR Palpation: NO ACUTE LUMBAR TENDERNESS. FUNCTIONAL SCREEN: Incontinence Impact Questionnaire Score: 0 Urogenital Distress Inventory Score: 4 Balance/Special Test Scores Oswestry Low Back Score: 9 Goals Goal 1:: DECREASE C/O LBP BY AT LEAST 50% TO EASE ADL'S. Goal Time Frame: 4-6 Weeks Goal 2:: DECREASE URINARY LEAKAGE EPISODES TO ONE OR LESS PER DAY Goal Time Frame: 6-8 Weeks Goal 3:: PATIENT WILL SUCCESSFULLY DELAY VOIDING LONG NEEDED WHEN URGENCY OCCURS TO SUCCESSFULLY MAKE IT TO THE BATHROOM. Goal Time Frame: 4-6 Weeks Goal 4:: PATIENT WILL DEMONSTRATE/COMMU (more content not included)... Normal [facility] ANES POSTPROC EVALon 024 ANES POSTPROC EVAL HNO ID: [id number] Author: MAGALIS DE ANDA MD Service: Anesthesiology Author Type: Physician Type: Anesthesia Postprocedure Evaluation Filed: 12/07/2023 10:03 Note Text: POST ANESTHESIA EVALUATION NOTE : 1950 Procedure Summary Date: 12/07/23 Room / Location: [facility] SURGERY Anesthesia Start: 918 Anesthesia Stop: Procedure: COLONOSCOPY SCREENING Diagnosis: Encounter for screening for malignant neoplasm of colon Encounter for screening for malignant neoplasm of colon Scheduled Providers: Priti Bowser MD; Magalis De Anda MD Responsible Provider: Magalis De Anda MD Anesthesia Type: MAC ASA Status: 3 Anesthesia Type: MAC Last Vitals Vitals Value Taken Time BP 108/61 12/07/23 1000 Temp 36.1 ?C (96.9 ?F) 12/07/23 1000 Pulse 80 12/07/23 1002 Resp 21 12/07/23 1002 SpO2 100 % 12/07/23 1002 Post Anesthesia Patient Status Patient Evaluation: bedside. Anticipated Disposition: phase 2 then home. Neurological Status: aware and responsive. Pulmonary Status: breathing comfortably on room air Airway Control: returned to baseline unsupported. Cardiovascular Status: stable. Pain Management: clinically adequate Postoperative Hydration: acceptable. Intraoperative Events: no significant anesthesia events Post Operative Nausea/Vomiting Status: no significant post operative nausea or vomiting Recommendation: continue current plan of care. Anesthesia Observations No Documentation SIGNATURE: Magalis De Anda MD PATIENT NAME: Lauryn Bang DATE: December 07, 2023 TIME: 10:02 AM CSN: [id number] [facility] ANES PRE-OPon 12-07-2023 ANES PRE-OP HNO ID: [id number] Author: MAGALIS DE ANDA MD Service: Anesthesiology Author Type: Physician Type: Anesthesia Preprocedure Evaluation Filed: 12/07/2023 09:18 Note Text: ANESTHESIOLOGY DAY OF SURGERY NOTE : 1950 Procedure Information Date/Time: 12/07/23 0930 Scheduled providers: Priti Bowser MD; Magalis De Anda MD Procedure: COLONOSCOPY SCREENING Location: [facility] Estimated body mass index is 27.99 kg/m? as calculated from the following: Height as of this encounter: 160 cm (5' 3). Weight as of this encounter: 71.7 kg (158 lb). Most recent hematocrit and potassium results: Hematocrit 43.8 06/30/2023 Potassium 5.0 06/30/2023 Relevant Problems CARDIO (+) Heart murmur (+) Nonrheumatic mitral valve regurgitation I - PHYSICAL EVALUATION AIRWAY Patient intubated: No. Tracheostomy tube not present Mallampati: II. TM distance: >3 FB. Neck ROM: full ROM without neurological symptoms. Mouth opening: adequate. Short neck: no. Thick neck: no Marcum present: no Microretrognathia/ ronagthia/Recessed Chin: No DENTAL Dental findings: teeth intact. Additional exam findings: yes. CARDIOVASCULAR Normal cardiovascular observations. PULMONARY Normal pulmonary observations. II - ANESTHESIA PLAN ASA Score: 3 Anesthetic Plan: MAC The patient is not a current smoker. NPO Status: adequate Beta Gurinder Monitoring Plan Monitoring plan: standard ASA. Post Procedure Analgesic Plan Postoperative analgesic plan: parenteral or oral opioids. Informed Consent Anesthetic risks, benefits, alternatives, personnel and consent discussed: yes. Patient / Responsible Republican agrees to proceed: yes Patient / Surrogate agrees to blood products: Yes DNR status not reviewed with patient and/or family prior to surgery. Significant changes in the patient condition since the History and Physical, not otherwise documented in primary service progress note: no. Potential Anesthesia issues that may suggest increased risk of complications or contraindication to planned procedure: other. Cardiac clearance noted. Vitals Value Taken Time BP 130/72 12/07/23 0849 Pulse 78 12/07/23 0849 Resp 19 12/07/23 0849 Temp 36.6 ?C (97.9 ?F) 12/07/23 0849 SpO2 100 % 12/07/23 0849 Facility-Administered Medications as of 12/07/2023 Medication Dose Route Frequency - lactated ringers iv infusion 75 mL/hr INTRAVENOUS CONTINUOUS Outpatient Medications as of 12/07/2023 Medication Sig - CRANBERRY ORAL Take by mouth. - multivitamin ORAL tablet Take 1 tablet by mouth once daily. - NITROFURANTOIN ORAL Take by mouth as needed. - melatonin 1 mg tablet Take by mouth. (Patient not taking: Reported on 11/22/2023) - estradiol 0.01 % (0.1 mg/g) vaginal cream Apply pea-sized amount to urethral opening twice a week. I have interviewed and examined the patient. I have reviewed the medical record and/or the pre-anesthesia evaluation, pertinent labs, and test results. This contains updated information obtained within 48 hours of Surgery/Procedure. SIGNATURE: Magalis De Anda MD PATIENT NAME: Lauryn Perez Locher DATE: December 07, 2023 TIME: 9:17 AM CSN: [id number] [facility] BRIEF OP NOTon 12-07-2023 BRIEF OP NOT HNO ID: [id number] Author: PRITI BOWSER MD Service: General Surgery Author Type: Physician Type: Brief Op Note Filed: 12/07/2023 09:57 Note Text: BRIEF OPERATIVE NOTE SURGERY DATE: 12/07/2023 Incision/Procedure Start Time: 9:29 cecal intubation time 9:38 Incision Close/Procedure End Time: 9:53 Surgeon(s)/Procedural ist(s) and Key Carrier(s): abby Procedures: Screening colonoscopy Anesthesia: MAC Findings: hemorrhoids, diverticulosis Estimated Blood Loss: 0 ml Specimens: None Complications: None Closure Technique: Non-primary Preop Diagnosis: screening for colon cancer, last colonoscopy 2007 Postop Diagnosis: hemorrhoids, diverticulosis SIGNATURE: Priti Bowser MD PATIENT NAME: Lauryn Perez Locher DATE: December 07, 2023 TIME: 9:56 AM Acct: [id number] [facility] HISTORY PHYSICALon HISTORY PHYSICAL HNO ID: [id number] Author: PRITI BOWSER MD Service: General Surgery Author Type: Physician Type: H&P Filed: 12/07/2023 09:07 Note Text: HISTORY AND PHYSICAL Lauryn Perez Locher 1950 REFERRING PHYSICIAN: Ashlyn Keita APRN.C* CHIEF COMPLAINT: Consult (Colonoscopy, 2007 last colonoscopy) HPI: The patient is a 72 year old female referred for endoscopy. Lauryn notes no colon complaints currently other than some intermittent constipation, per patient she feels this is associated with having a rectocele. Patient denies any weight changes, blood in stools, black tarry stools or abdominal pain. Denies family history of colon issues. The patient notes no upper GI complaints. Lauryn has undergone prior endoscopy. Last colonoscopy 06/04/08 under conscious sedation by Dr. Carter with removal of a hyperplastic polyp. Patient noted she had issues with both the bowel prep and sedation and that time. States had nausea and vomiting directly after the procedure, and states had diarrhea and bowel irregularity which lasted for a month after. PAST MEDICAL HISTORY Diagnosis Date Acid reflux Benign neoplasm of colon Diaphragmatic hernia without mention of obstruction or gangrene takes tums Frequent UTI Dr. 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 valve Pneumonia, viral Shingles Symptomatic menopausal or female climacteric states hot flashes, night sweats PAST SURGICAL HISTORY Procedure Laterality Date COLSC FLX W/RMVL OF TUMOR POLYP LESION SNARE TQ 06/04/2008 EXC LESION TDN SHTH/JT CAPSL HAND/FNGR Left 03/20/2019 Excision of left thumb ganglion cyst UNSPECIFIED ORAL SURGERY PROCEDURE, BY REPORT [place] teeth extracted UNSPECIFIED ORAL SURGERY PROCEDURE, BY REPORT 12/2016 tooth extracted VAGINAL HYSTERECTOMY UTERUS 250 GM/< 07/29/2008 Hysterectomy, vaginal w/ cystocele repair, removed one ovary Current Outpatient Medications Medication Sig NITROFURANTOIN ORAL Take by mouth as needed. melatonin 1 mg tablet Take by mouth. CRANBERRY ORAL Take by mouth. estradiol 0.01 % (0.1 mg/g) vaginal cream Apply pea-sized amount to urethral opening twice a week. multivitamin ORAL tablet Take 1 tablet by mouth once daily. No current facility-administered medications for this visit. ALLERGIES: Marcaine-Epinephrine [Bupivacaine-Epinephr ine], Augmentin [Amoxicillin-Pot Clavulanate], Bactrim [Sulfamethoxazole], Doxycycline, Erythromycin, Meloxicam Submicronized, and Rondec [Brompheniramine-Pseu doephedrin] PERSONAL HISTORY: Social History Tobacco Use Smoking status: Never Smokeless tobacco: Never Vaping Use Vaping Use: Never used Substance Use Topics Alcohol use: Yes Comment: Seldom Drug use: No FAMILY HISTORY: FAMILY HISTORY Problem Relation Age of Onset Breast Cancer Mother CHF age of breast cancer 60's Breast Cancer Sister late 50's, Cancer Sister BRAIN age 70 Breast Cancer Maternal Grandmother REVIEW OF SYSTEMS: General: The patient denies fatigue, denies weight loss, denies weight gain, denies feeling hot, and denies feelings of cold. Eyes: The patient denies glaucoma, denies eye injury/surgery, wears glasses or contacts. Ear/Nose/Throat: The patient notes allergies, denies hayfever, notes ear infections, and denies bloody noses. Cardiovascular: The patient denies chest pain, denies heart disease, denies high blood pressure,denies cardiac stent, denies prior heart attack, notes irregular heart beat, denies high cholesterol, denies poor circulation, denies heart failure, other cardiac issues, denies claudication, denies cold feet, denies peripheral arterial stent. Respiratory: The patient denies tuberculosis, notes pneumonia, denies frequent cough, denies pulmonary embolism, notes shortness of breath, and denies coughing up blood. Gastrointestinal: The patient denies difficulty swallowing, notes acid reflux, denies ulcers, denies vomiting, denies jaundice/hepatitis, denies gallbladder problems, denies black or tarry stools, denies hemorrhoids, denies bleeding from rectum, denies diverticulitis, denies constipation, denies diarrhea, denies loss of stool control, and denies hernias. Kidney/Bladder: The patient denies kidney stones, notes urine infections, and denies bloody urine. Skin: The patient denies a history of skin cancer, denies bleeding/changing moles, and notes a history of skin rash. Neurologic: The patient denies a history of epilepsy/convulsions, denies headaches, denies head/spinal injuries, and denies stroke/TIA. Psychiatric: The patient denies psychiatric medications, denies depression, and denies voices, denies substance abuse. Endocrine: The patient notes thyroid disorders, denies diabetes, and denies hormonal problems. Hematologic: The patient denies a history of bruising, denies bleeding, and denies anemia, denies blood clots. Infections: The patient (more content not included)... Normal [facility] OPERATIVE NOon 12-07-2023 OPERATIVE NO HNO ID: [id number] Author: PRITI BOWSER MD Service: General Surgery Author Type: Physician Type: Operative Report Filed: 12/08/2023 08:04 Note Text: [facility] - Operative Report - [place] LAURYN BANG : 1950 AGE: 72. SEX: F PATIENT TYPE: O HOSP SVC: Surgical LOCATION: [facility] ATTENDING PHYSICIAN: Priti Bowser MD CSN NUMBER: [id number] DATE OF SURGERY/PROCEDURE: 12/07/2023 INCISION/PROCEDURE START TIME: 928 INCISION CLOSE/PROCEDURE END TIME: 952 PREOPERATIVE DIAGNOSIS: Screening for colon cancer. POSTOPERATIVE DIAGNOSIS: Diverticulosis and hemorrhoids. SURGEON: Priti Bowser MD BLADE BENDER FURNACE TENDER: No Additional Staff SURGERY/PROCEDURE: Screening colonoscopy. ANESTHESIA: Monitored anesthesia care. LOCATION: [facility]. INDICATIONS: Lauryn Bang is a 72-year-old female, who presents for a screening colonoscopy. She last had a colonoscopy in 2007. She has been counseled on the risks of procedure including, but not limited to infection, bleeding, perforation of GI tract, inability to complete procedure, injury to any internal organs such as the liver and/or the spleen, etc. The patient understands and agrees to proceed. DESCRIPTION OF PROCEDURE: After informed consent was given, the patient was brought to the endoscopy suite. Appropriate time-out protocol was followed. Patient was placed in the left lateral decubitus position. She was given IV anesthesia by the anesthesia provider. The endoscope was lubricated, carefully inserted in the patient's anus, and advanced into the rectum. It was then advanced into the sigmoid colon, then left colon, past splenic flexure into the transverse colon, past hepatic flexure into the right colon, then into the cecum. The cecum was identified by confluence of teniae coli, identification of ileocecal valve, appendiceal orifice, transillumination and external palpation. At this level, the colonoscope was slowly retracted back. Of note is that the colon cleansing preparation was adequate. There was no evidence of any masses, polyps, or lesions in the right colon. There was no evidence of any masses, polyps, or lesions in the transverse colon. There was no evidence of any masses, polyps, or lesions in the left colon. There was multiple diverticula noted in the sigmoid colon. There was no evidence of any masses or polyps in the rectum. Retroflexed view in the rectum revealed hemorrhoidal changes, but no active inflammation or bleeding. The endoscope was removed intact. Digital examination of the anal canal revealed no palpable masses. The patient tolerated the procedure well and was brought to recovery room in stable condition. ESTIMATED BLOOD LOSS: None. SPECIMENS: None. COMPLICATIONS: None. RECOMMENDATIONS: Screening colonoscopy in 10 years. Priti Bowser MD LW:[id number] /[id number] Normal [facility] NURSING PROGon 11-28-2023 NURSING PROG HNO ID: [id number] Author: KURT MCINTYRE, RN Service: ? Author Type: Registered Nurse Type: Nursing Progress Note Filed: 11/28/2023 10:05 Note Text: Pre-Procedure Checklist Lauryn Bang [phone] (home) 1950 72 year old Body mass index is 29.76 kg/m?. Allergies: Marcaine-Epinephrin* Shortness of Breath, Angioedema Comment:Tolerates Lidocaine/Epinephrine Augmentin [Amoxicil* Diarrhea Bactrim [Sulfametho* GI Upset Doxycycline Rash Erythromycin Comment:unknown Meloxicam Submicron* GI Upset Rondec [Bromphenira* Comment:unknown Procedure: Screening colonoscopy Date of Procedure: 12/07/23 Smoke: No Alcohol: No Street Drugs: No Diabetic: No Insulin: No Problems with Anesthesia (Self or Family?) No Patient Has N/V every time she has anesthesia [employer] First Officer: Dr Iglesias Saw assembly technician in the last 6 months? Yes Recent EKG/Cardiac Testing: Yes (Has mitral valve prolapse) Chest pain in the last 6 months (<6 months cardiac clearance needed): No History of: Heart Attack/Stroke/Blood Clot?: none Shortness of Breath: No Asthma: No Inhalers: No Any Outstanding Consults?: No If yes, list: Additional Notes: Patient has Mitral Valve Prolapse and sees the assembly technician every 6 months. Recent Covid (10/22/23)...Patient is feeling much better. HYPERION ANALYST: Gavin () Normal [facility] COVID & INFLUENZA A/B & RSV NAAT, ROUTINEon 11-22-2023 FLUAV RNA REA+probe Ql (Unsp spec) Not detected Not Detected [facility] FLUBV RNA REA+probe Ql (Unsp spec) Not detected Not Detected [facility] RSV A RNA REA+probe Ql (Unsp spec) Not detected Not Detected [facility] SARS-CoV-2 (COVID-19) RNA REA+probe Ql (Resp) Detected Abnormal See comment [facility] XR Chest 2 Viewson [facility] XR Chest PA and Lateralon IMPRESSION: No acute radiographic abnormality. Accident Examiner: CAMI Transcribe Date/Time: Nov 22 2023 12:19P Dictated by : CESILIA PEREIRA MD This examination was interpreted and the report reviewed and electronically signed by: CESILIA PEREIRA MD on Nov 22 2023 12:19PM [facility] DIVISION OF RADIOLOGY * * *Final Report* * * DATE OF EXAM: Nov 22 2023 12:13PM WOX [id number] - XR CHEST 2V FRONTAL/LAT / PROCEDURE REASON: multiple diagnoses * * * * Physician Interpretation * * * * EXAMINATION: CHEST RADIOGRAPH (2 VIEW FRONTAL & LATERAL) CLINICAL HISTORY: Acute cough URI, acute MQ: XC2_6 EXAM DATE/TIME: 11/22/2023 12:13 PM COMPARISON: Chest x-ray dated June 30, 2023 RESULT: Lines, tubes, and devices: None. Lungs and pleura: Stable mild right greater than left biapical pleural thickening. No consolidation. No lung mass. No pleural effusion. No pneumothorax. Cardiomediastinal silhouette: Normal cardiomediastinal silhouette. Bones and soft tissues: Degenerative changes are present within the thoracic spine. DIVISION OF RADIOLOGY Provider, [facility] Awilda [facility] - 11/22/2023 * * *Final Report* * * DATE OF EXAM: Nov 22 2023 12:13PM WOX [id number] - XR CHEST 2V FRONTAL/LAT / PROCEDURE REASON: multiple diagnoses * * * * Physician Interpretation * * * * EXAMINATION: CHEST RADIOGRAPH (2 VIEW FRONTAL & LATERAL) CLINICAL HISTORY: Acute cough URI, acute MQ: XC2_6 EXAM DATE/TIME: 11/22/2023 12:13 PM COMPARISON: Chest x-ray dated June 30, 2023 RESULT: Lines, tubes, and devices: None. Lungs and pleura: Stable mild right greater than left biapical pleural thickening. No consolidation. No lung mass. No pleural effusion. No pneumothorax. Cardiomediastinal silhouette: Normal cardiomediastinal silhouette. Bones and soft tissues: Degenerative changes are present within the thoracic spine. IMPRESSION IMPRESSION: No acute radiographic abnormality. Accident Examiner: PSCB Transcribe Date/Time: Nov 22 2023 12:19P Dictated by : CESILIA PEREIRA MD This examination was interpreted and the report reviewed and electronically signed by: CESILIA PEREIRA MD on Nov 22 2023 12:19PM EST [facility] Radiology Study observation (narrative) [facility] XR Chest PA and LateralOrder ed By: [facility] Provider on 11-22-2023 [facility] XR Chest PA and Lateralon IMPRESSION: Stable and unremarkable exam with no acute radiographic abnormality. Accident Examiner: PSCB Transcribe Date/Time: Jul 01 2023 9:09A Dictated by : MAIK RATLIFF MD This examination was interpreted and the report reviewed and electronically signed by: MAIK RATLIFF MD on Jul 01 2023 9:09AM [facility] DIVISION OF RADIOLOGY * * *Final Report* * * DATE OF EXAM: Jun 30 2023 11:37AM WOX [id number] - XR CHEST 2V FRONTAL/LAT / PROCEDURE REASON: Chest pain, unspecified type * * * * Physician Interpretation * * * * EXAMINATION: CHEST RADIOGRAPH (2 VIEW FRONTAL & LATERAL) CLINICAL HISTORY: Chest pain, unspecified type MQ: XC2_6 EXAM DATE/TIME: 06/30/2023 11:37 AM COMPARISON: 01/20/2023. RESULT: Lines, tubes, and devices: None. Lungs and pleura: No consolidation. No lung mass. No pleural effusion. No pneumothorax. Cardiomediastinal silhouette: Normal cardiomediastinal silhouette. Bones and soft tissues: Unremarkable. DIVISION OF RADIOLOGY Provider, [facility] - 07/01/2023 * * *Final Report* * * DATE OF EXAM: Jun 30 2023 11:37AM WOX [id number] - XR CHEST 2V FRONTAL/LAT / PROCEDURE REASON: Chest pain, unspecified type * * * * Physician Interpretation * * * * EXAMINATION: CHEST RADIOGRAPH (2 VIEW FRONTAL & LATERAL) CLINICAL HISTORY: Chest pain, unspecified type MQ: XC2_6 EXAM DATE/TIME: 06/30/2023 11:37 AM COMPARISON: 01/20/2023. RESULT: Lines, tubes, and devices: None. Lungs and pleura: No consolidation. No lung mass. No pleural effusion. No pneumothorax. Cardiomediastinal silhouette: Normal cardiomediastinal silhouette. Bones and soft tissues: Unremarkable. IMPRESSION IMPRESSION: Stable and unremarkable exam with no acute radiographic abnormality. Accident Examiner: CAMI Transcribe Date/Time: Jul 01 2023 9:09A Dictated by : MAIK RATLIFF MD This examination was interpreted and the report reviewed and electronically signed by: MAIK RATLIFF MD on Jul 01 2023 9:09AM EST [facility] XR Chest PA and LateralOrder ed By: Ccf Provider on 07-01-2023 [facility] CBC W Auto Differential pane l (Bld)on 06-30-2023 Basophils (Bld) [#/Vol] <0.11 k/uL C [facility] Basophils/100 WBC (Bld) 0.4 % [facility] Differential cell count method Nom (Bld) Auto [facility] Eosinophils (Bld) [#/Vol] 0.10 10*3/uL <0.46 k/uL [facility] Eosinophils/100 WBC (Bld) 1.9 % [facility] Erythrocyte distribution width (RBC) [Ratio] 13.7 % 11.5 - 15.0 % [facility] Hematocrit (Bld) [Volume fraction] 43.8 % 36.0 - 46.0 % [facility] Hemoglobin (Bld) [Mass/Vol] 14.0 g/dL 11.5 - 15.5 g/dL [facility] Immature granulocytes (Bld) [#/Vol] <0.10 k/uL [facility] Immature granulocytes/100 WBC (Bld) 0.2 % [facility] Lymphocytes (Bld) [#/Vol] 1.59 10*3/uL 1.00 - 4.00 k/uL [facility] Lymphocytes/100 WBC (Bld) 30.7 % [facility] MCH (RBC) [Entitic mass] 30.1 pg 26.0 - 34.0 pg [facility] MCHC (RBC) [Mass/Vol] 32.0 g/dL 30.5 - 36.0 g/dL [facility] MCV (RBC) [Entitic vol] 94.2 fL 80.0 - 100.0 fL [facility] Monocytes (Bld) [#/Vol] 0.45 10*3/uL <0.87 k/uL [facility] Monocytes/100 WBC (Bld) 8.7 % [facility] Neutrophils (Bld) [#/Vol] 3.01 10*3/uL 1.45 - 7.50 k/uL [facility] Neutrophils/100 WBC (Bld) 58.1 % [facility] Nucleated RBC (Bld) [#/Vol] <0.01 k/uL [facility] Nucleated RBC/100 WBC (Bld) [Ratio] 0.0 /100 WBC [facility] Platelet mean volume (Bld) [Entitic vol] 12.3 fL 9.0 - 12.7 fL [facility] Platelets (Bld) [#/Vol] 174 10*3/uL 150 - 400 k/uL [facility] RBC (Bld) [#/Vol] 4.65 10*6/uL 3.90 - 5.2 0 m/uL [facility] WBC (Bld) [#/Vol] 5.18 10*3/uL 3.70 - 11. 00 k/uL [facility] XR Chest PA and Lateralon Radiology Study observation (narrative) [facility] CNOVon 04-20-2023 CNOV Office Visit (SPAGWO ) LAURYN BANG ([id number]) 1950 F Date Time Provider Department 04/20/23 1:45 PM LEONARD POE During your visit today, we recorded the following information about you: Pulse Respiration 83/minute 16/minute Leonard Poe MD 04/20/2023 2:10 PM Signed [facility] Name: Lauryn Bang : 1950 Purpose: 2 month follow-up Today's Date: 04/20/2023 Last Visit: 02/02/2023 Chief complaint: low back pain Lauryn Bang is an established patient, returning today for continued evaluation and management of the chief complaint noted above. Interval History: Overall pain and functional disability: improved New Complaints: none She has been able to sit for longer periods - she is able to sit for commutes and for flights. Still with pain with prolonged standing and with flexion. Pain Description: Timing: intermittent Character: sharp and stabbing, aching Primary Location: axial low back, right > left Radiation: none Exacerbating factors: sitting Relieving factors: changing positions Interferes with: sitting and social activities The patient denies difficulty with bowel or bladder control, unintentional weight loss, and fevers, chills, or night sweats. Medications Prescribed: Started or modified: none Discontinued: Celebrex 200mg BID PRN - helped; but has not continued, tolerated better Zanaflex - did not take Maintained at current dosages: Tolerating Medication: yes Medications helping improve ADL's and Self-care: yes Procedures Performed: DATE PROCEDURE IMPROVEMENT none Therapies Attended: PT 6 visits have been attended Treatment dates: Between 11/18/2022 and 01/25/2023 Improvement in pain and function: yes Studies Obtained: MRI (relevant findings reported below) Notable Events During Course of Treatment: 11/16/2022 - Initial HPI: Referred by Ashlyn Keita APRN.CNP , for evaluation AND management of low back pain Duration: 2 months Sudden onset? yes, Trauma? No She was sitting on a wooden religion pew for about 90 minutes, had sudden onset of low back pain after she started walking around. Pain worsened over several days. Seen in [facility] 09/[facility]. She was given Prednisone and Flexeril, which did not help. Prior Treatments: Medications (See below), Injections (See below), Modalities (eg. Heat, Ice), Physical Therapy , Home Exercise Program , and Activity Modification 6 PT visits between 10/21/2022 and 11/15/2022 Therapy was helping, then on Monday felt she took a step backwards. INTAKE PAIN ASSESSMENT 02/02/2023 03/17/2023 Are you having pain associated with your visit today? Yes, Provider notified No Pain Scales Verbal (Numeric Rating or Visual Analog Scale) - Pain Level 0 - Pain Location Back-Lower - Description Shooting;Sharp - Duration Amount of Time - - Duration Units Months - Frequency Intermittent - Intervention/Comfort measure Reposition;Relaxation ;Positioning - Pain Assessment - - Medications: CURRENT Pain Medications: none Pain Medications Taken TO DATE (for the chief complaint(s)): Membrane Stabilizers: none NSAIDS: Motrin (Ibuprofen) and Mobic (Meloxicam) - Mobic helped initially, but caused GI Upset Opioids: Vicodin or [place] (Hydrocodone) Muscle Relaxants: Flexeril (Cyclobenzaprine) - no relief Topicals: none Other Prescription or OTC Pain Medications: none Anti-depressants: Effexor Non-Pain Meds of Note: none Allergies: ALLERGIES Allergen Reactions Augmentin [Amoxicil* Diarrhea Bactrim [Sulfametho* GI Upset Doxycycline Rash Erythromycin unknown Meloxicam Submicron* GI Upset Rondec [Bromphenira* unknown Compliance: PDMP website checked and validated. All prescriptions have been APPROPRIATELY filled. No suspicious activity was identified. On 04/20/2023 by Leonard Poe MD Recent Drug screens: AG SPINE COMBINATION 11/17/2022 Questionnaire GREENLIGHT Completed Date 11/17/2022 Questionnaire Opiod Risk Tool Completed Date 11/17/2022 Comments 0 Risk Assessment: IRINA-7: IRINA - 7 SCORES 11/17/2022 IRINA-7 Score 0 (0-4) minimal anxiety, (5-9) mild anxiety, (10-14) moderate anxiety, (15-21) severe anxiety PHQ-9: PHQ-9 11/17/2022 Score 0 (0-4) minimal depression, (5-9) mild depression, (10-14) moderate depression, (15-19) moderately severe depression, (20-27) severe depression Opioid Risk Tool: Family History of Substance Abuse: 0 - No Personal History of Substance Abuse: 0 - No Age between 16-45: 0 - No History of Pre-Adolescence Sexual Abuse: 0 - No Psychological Disease: 0 - No Risk Total: 0 Total Score Risk Category: Low Risk 0-3 (0-3, low risk or no risk; 4-7, moderate risk, 8+, high risk) Diagnostic Studies: Relevant Imaging: Reviewed Personally on today's date, noted above MRI Spine Report MRI LUMBAR SPINE WO IVCON Ex (more content not included)... Normal [facility] Mario 04-20-2023 [facility] Telephone (SPAGWO) LAURYN BANG ([id number]) 1950 F Date Time Provider Department 04/20/23 LEONARD POE During your visit today, we recorded the following information about you: Sri Analy 04/20/2023 2:23 PM Signed The referral to Allergy/Immunology for throat-closure with lidocaine. Would like to get drug tolerance testing to Lidocaine 2% (up to 10cc of possible) and Bupivacaine 0.75% (up to 5cc if possible). Alternatives to Lidocaine would be Chloroprocaine 3% (up to 10cc if possible) has been submitted via the [facility] Internal Referral Request form on the [facility] Appointment Portal. Confirmation # [id number] Sriboyd Ledezmaard Allergies As of Date: 04/20/2023 Noted Allergy Reaction AUGMENTIN (AMOXICILLIN-POT CLAVUL*06/20/2005 6 - Diarrhea BACTRIM (SULFAMETHOXAZOLE) 12/13/2012 8 - GI Upset DOXYCYCLINE 02/25/2015 2 - Rash ERYTHROMYCIN 03/31/2008 Comments: unknown LIDOCAINE 04/20/2023 14 - Other: See Comments Comments: Throat closed with remote thyroid surgery MELOXICAM SUBMICRONIZED 11/17/2022 8 - GI Upset RONDEC (BROMPHENIRAMINE-PSEU DOEPH*03/31/2008 Comments: unknown Date Reviewed: 04/20/2023 Reviewed by: Leonard Poe MD - Fully Assessed Reason for Visit: Referral [Other] Prescriptions as of 04/20/2023 - melatonin 1 mg tablet Take by mouth. - CRANBERRY ORAL Take by mouth. - Hydrogen Peroxide (PEROXYL) 1.5 % soln Use 5 mL as instructed once daily. - diphenhydramine HCl (UNISOM SLEEPMELTS ORAL) Take by mouth. - estradiol 0.01 % (0.1 mg/g) vaginal cream Apply pea-sized amount to urethral opening twice a week. - AZO CRANBERRY (CRANBERRY EXT-C-L. SPOROGENES) 450-30-50 [id number] tab Take by mouth. - multivitamin ORAL tablet Take 1 tablet by mouth once daily. Problem List As Of Date 04/20/2023 Noted Resolved BENIGN NEOPLASM LG BOWEL [D12.6] 06/04/2008 Chronic interstitial cystitis [N30.10] 06/26/2009 Osteoporosis [M81.0] 04/01/2010 Heart murmur [R01.1] 10/20/2010 Nontoxic multinodular goiter [E04.2] 10/20/2010 Eczematous dermatitis [L30.9] 04/21/2012 Contact dermatitis and other eczema, due to uns*04/21/2012 Pruritus [L29.9] 04/21/2012 Urticaria [L50.9] 04/21/2012 Rash and other nonspecific skin eruption [R21] 04/21/2012 Ganglion cyst [M67.40] 03/11/2019 Enlarged thyroid gland [E04.9] 10/10/2019 Multiple thyroid nodules [E04.2] 10/10/2019 Lumbar pain [M54.50] 10/21/2022 Left hip pain [M25.552] 10/21/2022 Encounter Status:Closed by SRI PASTOR on 04/20/23 [facility] MRI LUMBAR SPINE WO IVCONon 03-02-2023 [facility] CNOVon 02-02-2023 CNOV Office Visit (SPAGWO ) LAURYN BANG ([id number]) 1950 F Date Time Provider Department 02/02/23 1:15 PM LEONARD POE During your visit today, we recorded the following information about you: Pulse Respiration 84/minute 16/minute Leonard Poe MD 02/02/2023 1:41 PM Signed [facility] General Name: Lauryn Bang : 1950 Purpose: 2 month follow-up Today's Date: 02/02/2023 Last Visit: 11/17/2022 Chief complaint: low back pain Lauryn Bang is an established patient, returning today for continued evaluation and management of the chief complaint noted above. Interval History: Overall pain and functional disability: improved New Complaints: none She has been able to sit for longer periods - she took two flights. Pain Description: Timing: intermittent Character: sharp and stabbing, aching Primary Location: axial low back Radiation: left proximal lateral thigh, left groin Exacerbating factors: sitting Relieving factors: changing positions Interferes with: sitting and social activities The patient denies difficulty with bowel or bladder control, unintentional weight loss, and fevers, chills, or night sweats. Medications Prescribed: Started or modified: none Discontinued: Celebrex 200mg BID PRN - helped; but has not continued, tolerated better Zanaflex - did not take Maintained at current dosages: Tolerating Medication: yes Medications helping improve ADL's and Self-care: yes Procedures Performed: DATE PROCEDURE IMPROVEMENT none Therapies Attended: PT 6 visits have been attended Treatment dates: Between 11/18/2022 and 01/25/2023 Improvement in pain and function: yes Studies Obtained: none (relevant findings reported below) Notable Events During Course of Treatment: 11/16/2022 - Initial HPI: Referred by Ashlyn Keita APRN.CNP , for evaluation AND management of low back pain Duration: 2 months Sudden onset? yes, Trauma? No She was sitting on a wooden religion pew for about 90 minutes, had sudden onset of low back pain after she started walking around. Pain worsened over several days. [facility]. She was given Prednisone and Flexeril, which did not help. Prior Treatments: Medications (See below), Injections (See below), Modalities (eg. Heat, Ice), Physical Therapy , Home Exercise Program , and Activity Modification 6 PT visits between 10/21/2022 and 11/15/2022 Therapy was helping, then on Monday felt she took a step backwards. INTAKE PAIN ASSESSMENT 12/02/2022 01/20/2023 Are you having pain associated with your visit today? - No Pain Scales - - Pain Level 1 - Pain Location - - Description - - Duration Amount of Time - - Duration Units - - Frequency - - Intervention/Comfort measure - - Pain Assessment - - Medications: CURRENT Pain Medications: none Pain Medications Taken TO DATE (for the chief complaint(s)): Membrane Stabilizers: none NSAIDS: Motrin (Ibuprofen) and Mobic (Meloxicam) - Mobic helped initially, but caused GI Upset Opioids: Vicodin or [place] (Hydrocodone) Muscle Relaxants: Flexeril (Cyclobenzaprine) - no relief Topicals: none Other Prescription or OTC Pain Medications: none Anti-depressants: Effexor Non-Pain Meds of Note: none Allergies: ALLERGIES Allergen Reactions Augmentin [Amoxicil* Diarrhea Bactrim [Sulfametho* GI Upset Doxycycline Rash Erythromycin unknown Meloxicam Submicron* GI Upset Rondec [Bromphenira* unknown Compliance: PDMP website checked and validated. All prescriptions have been APPROPRIATELY filled. No suspicious activity was identified. By Leonard Poe MD 02/02/2023 Recent Drug screens: AG SPINE COMBINATION 11/17/2022 Questionnaire GREENLIGHT Completed Date 11/17/2022 Questionnaire Opiod Risk Tool Completed Date 11/17/2022 Comments 0 Risk Assessment: IRINA-7: IRINA - 7 SCORES 11/17/2022 IRINA-7 Score 0 (0-4) minimal anxiety, (5-9) mild anxiety, (10-14) moderate anxiety, (15-21) severe anxiety PHQ-9: PHQ-9 11/17/2022 Score 0 (0-4) minimal depression, (5-9) mild depression, (10-14) moderate depression, (15-19) moderately severe depression, (20-27) severe depression Opioid Risk Tool: Family History of Substance Abuse: 0 - No Personal History of Substance Abuse: 0 - No Age between 16-45: 0 - No History of Pre-Adolescence Sexual Abuse: 0 - No Psychological Disease: 0 - No Risk Total: 0 Total Score Risk Category: Low Risk 0-3 (0-3, low risk or no risk; 4-7, moderate risk, 8+, high risk) Diagnostic Studies: Relevant Imaging: Reviewed Personally on today's date, noted above MRI Spine Report No resulted procedures found. X-ray Lumbar Spine 10/2022 Exaggerated lumbar lordosis with low-grade spondylolisthesis of L4 and L5. No compression fracture. Mild disc space narrowing at L5/S1. Degenerative changes lower facet (more content not included)... Normal [facility] Influenza virus A and B RNA and SARS-CoV-2 (COVID-19) N gene panel REA+probe (Resp)on 01-21-2023 FLUAV RNA REA+probe Ql (Unsp spec) Not detected Not Detected [facility] FLUBV RNA REA+probe Ql (Unsp spec) Not detected Not Detected [facility] SARS-CoV-2 (COVID-19) RNA REA+probe Ql (Resp) Not detected See comment [facility] XR CHEST 2V FRONTAL/LATon [facility] XR Chest PA and Lateralon IMPRESSION: No acute radiographic abnormality. Accident Examiner: [employer] Transcribe Date/Time: Jan 20 2023 12:18P Dictated by : PRESLEY BLAKELY MD This examination was interpreted and the report reviewed and electronically signed by: PRESLEY BLAKELY MD on Jan 20 2023 12:20PM [facility] DIVISION OF RADIOLOGY * * *Final Report* * * DATE OF EXAM: Jan 20 2023 11:30AM WOX 5291 - XR CHEST 2V FRONTAL/LAT / PROCEDURE REASON: Acute cough * * * * Physician Interpretation * * * * EXAMINATION: CHEST RADIOGRAPH (2 VIEW FRONTAL & LATERAL) CLINICAL HISTORY: Acute cough MQ: XC2_6 EXAM DATE/TIME: 01/20/2023 11:30 AM COMPARISON: No relevant prior studies available. RESULT: Lines, tubes, and devices: None. Lungs and pleura: Slightly small lung volume. No consolidation. No lung mass. No pleural effusion. No pneumothorax. Cardiomediastinal silhouette: The cardiac silhouette and mediastinal contour are within normal limits. Bones and soft tissues: The spine shows mild degenerative changes. DIVISION OF RADIOLOGY Provider, [facility] - 01/20/2023 * * *Final Report* * * DATE OF EXAM: Jan 20 2023 11:30AM WOX 5291 - XR CHEST 2V FRONTAL/LAT / PROCEDURE REASON: Acute cough * * * * Physician Interpretation * * * * EXAMINATION: CHEST RADIOGRAPH (2 VIEW FRONTAL & LATERAL) CLINICAL HISTORY: Acute cough MQ: XC2_6 EXAM DATE/TIME: 01/20/2023 11:30 AM COMPARISON: No relevant prior studies available. RESULT: Lines, tubes, and devices: None. Lungs and pleura: Slightly small lung volume. No consolidation. No lung mass. No pleural effusion. No pneumothorax. Cardiomediastinal silhouette: The cardiac silhouette and mediastinal contour are within normal limits. Bones and soft tissues: The spine shows mild degenerative changes. IMPRESSION IMPRESSION: No acute radiographic abnormality. Accident Examiner: CAMI Transcribe Date/Time: Jan 20 2023 12:18P Dictated by : PRESLEY BLAKELY MD This examination was interpreted and the report reviewed and electronically signed by: PRESLEY BLAKELY MD on Jan 20 2023 12:20PM EST [facility] Radiology Study observation (narrative) [facility] XR Chest PA and LateralOrder ed By: Ccf Provider on 01-20-2023 [facility] No Panel Informationon 10-18 IMPRESSION: 1. Left hip grossly unremarkable. 2. Degenerative changes lower lumbar spine with low-grade spondylolisthesis of L4 and L5. Accident Examiner: [facility] Transcribe Date/Time: Oct 18 2022 7:35A Dictated by : NEVA BUTLER MD This examination was interpreted and the report reviewed and electronically signed by: NEVA BUTLER MD on Oct 18 2022 7:37AM [facility] DIVISION OF RADIOLOGY No Panel InformationOrdered By: Ccf Provider on 10-18-2022 [facility] XR Lumbar spine 3 Viewson * * *Final Report* * * DATE OF EXAM: Oct 17 2022 3:29PM WOX 5228 - XR LUMBAR 3V AP/LAT/L5-S1 / PROCEDURE REASON: Lumbar pain * * * * Physician Interpretation * * * * HISTORY: sat on a hard bench and has pain since in the left posterior hip no inj. Left hip pain . TECHNIQUE: XR HIP 3V PELV+ AP/LAT LT, XR LUMBAR 3V AP/LAT/L5-S1 Laterality: LEFT (accession [id number]), NOT APPLICABLE (accession [id number]) Number of different views (projections): 3 views of the lumbar spine and 3 views of the left hip COMPARISON: None RESULT: Left hip: Well-maintained with normal shape of the femoral head. No fracture. Bony pelvis intact. Lumbar spine: Exaggerated lumbar lordosis with low-grade spondylolisthesis of L4 and L5. No compression fracture. Mild disc space narrowing at L5/S1. Degenerative changes lower facet joints. DIVISION OF RADIOLOGY Provider, [facility] Awilda [facility] - 10/18/2022 * * *Final Report* * * DATE OF EXAM: Oct 17 2022 3:29PM WOX 5228 - XR LUMBAR 3V AP/LAT/L5-S1 / PROCEDURE REASON: Lumbar pain * * * * Physician Interpretation * * * * HISTORY: sat on a hard bench and has pain since in the left posterior hip no inj. Left hip pain . TECHNIQUE: XR HIP 3V PELV+ AP/LAT LT, XR LUMBAR 3V AP/LAT/L5-S1 Laterality: LEFT (accession [id number]), NOT APPLICABLE (accession [id number]) Number of different views (projections): 3 views of the lumbar spine and 3 views of the left hip COMPARISON: None RESULT: Left hip: Well-maintained with normal shape of the femoral head. No fracture. Bony pelvis intact. Lumbar spine: Exaggerated lumbar lordosis with low-grade spondylolisthesis of L4 and L5. No compression fracture. Mild disc space narrowing at L5/S1. Degenerative changes lower facet joints. IMPRESSION IMPRESSION: 1. Left hip grossly unremarkable. 2. Degenerative changes lower lumbar spine with low-grade spondylolisthesis of L4 and L5. Accident Examiner: [facility] Transcribe Date/Time: Oct 18 2022 7:35A Dictated by : NEVA BUTLER MD This examination was interpreted and the report reviewed and electronically signed by: NEVA BUTLER MD on Oct 18 2022 7:37AM [facility] XR Pelvis and Hip - left AP and Lateral frogon 10-18-2022 * * *Final Report* * * DATE OF EXAM: Oct 17 2022 3:29PM WOX 5351 - XR HIP 3V PELV+ AP/LAT LT / PROCEDURE REASON: Left hip pain * * * * Physician Interpretation * * * * HISTORY: sat on a hard bench and has pain since in the left posterior hip no inj. Left hip pain . TECHNIQUE: XR HIP 3V PELV+ AP/LAT LT, XR LUMBAR 3V AP/LAT/L5-S1 Laterality: LEFT (accession [id number]), NOT APPLICABLE (accession [id number]) Number of different views (projections): 3 views of the lumbar spine and 3 views of the left hip COMPARISON: None RESULT: Left hip: Well-maintained with normal shape of the femoral head. No fracture. Bony pelvis intact. Lumbar spine: Exaggerated lumbar lordosis with low-grade spondylolisthesis of L4 and L5. No compression fracture. Mild disc space narrowing at L5/S1. Degenerative changes lower facet joints. DIVISION OF RADIOLOGY Provider, [facility] - 10/18/2022 * * *Final Report* * * DATE OF EXAM: Oct 17 2022 3:29PM WOX 5351 - XR HIP 3V PELV+ AP/LAT LT / PROCEDURE REASON: Left hip pain * * * * Physician Interpretation * * * * HISTORY: sat on a hard bench and has pain since in the left posterior hip no inj. Left hip pain . TECHNIQUE: XR HIP 3V PELV+ AP/LAT LT, XR LUMBAR 3V AP/LAT/L5-S1 Laterality: LEFT (accession [id number]), NOT APPLICABLE (accession [id number]) Number of different views (projections): 3 views of the lumbar spine and 3 views of the left hip COMPARISON: None RESULT: Left hip: Well-maintained with normal shape of the femoral head. No fracture. Bony pelvis intact. Lumbar spine: Exaggerated lumbar lordosis with low-grade spondylolisthesis of L4 and L5. No compression fracture. Mild disc space narrowing at L5/S1. Degenerative changes lower facet joints. IMPRESSION IMPRESSION: 1. Left hip grossly unremarkable. 2. Degenerative changes lower lumbar spine with low-grade spondylolisthesis of L4 and L5. Accident Examiner: [facility] Transcribe Date/Time: Oct 18 2022 7:35A Dictated by : NEVA BUTLER MD This examination was interpreted and the report reviewed and electronically signed by: NEVA BUTLER MD on Oct 18 2022 7:37AM EST [facility] No Panel Informationon 10-17 Radiology Study observation (narrative) Zak faustin [facility] TINO SCREENING W TOMOon 08-18 [facility] XR FOOT GENERAL 3V AP/LAT/OB L RIGHTon 03-29-2022 [facility] XR Foot - right AP and Later al and obliqueon 03-29-2022 IMPRESSION: No radiographic evidence of acute osseous injury Accident Examiner: [facility] Transcribe Date/Time: Mar 29 2022 2:49P Dictated by : CESILIA PEREIRA MD This examination was interpreted and the report reviewed and electronically signed by: CESILIA PEREIRA MD on Mar 29 2022 2:52PM EST [email or web address] E_DIVISION OF RADIOLOGY * * *Final Report* * * DATE OF EXAM: Mar 29 2022 2:41PM WOX 5337 - XR FOOT 3V AP/LAT/OBL RT / PROCEDURE REASON: Injury * * * * Physician Interpretation * * * * CLINICAL INDICATION: Injury. TECHNIQUE: 3 view radiographic study of the right foot COMPARISON: Correlation made to right ankle radiograph dated March 30, 2020 FINDINGS: No acute fracture or dislocation identified. Dorsal calcaneal enthesophyte. [email or web address] E_DIVISION OF RADIOLOGY Provider, Prosper langston [facility] - 03/29/2022 * * *Final Report* * * DATE OF EXAM: Mar 29 2022 2:41PM WOX 5337 - XR FOOT 3V AP/LAT/OBL RT / PROCEDURE REASON: Injury * * * * Physician Interpretation * * * * CLINICAL INDICATION: Injury. TECHNIQUE: 3 view radiographic study of the right foot COMPARISON: Correlation made to right ankle radiograph dated March 30, 2020 FINDINGS: No acute fracture or dislocation identified. Dorsal calcaneal enthesophyte. IMPRESSION IMPRESSION: No radiographic evidence of acute osseous injury Accident Examiner: [facility] Transcribe Date/Time: Mar 29 2022 2:49P Dictated by : CESILIA PEREIRA MD This examination was interpreted and the report reviewed and electronically signed by: CESILIA PEREIRA MD on Mar 29 2022 2:52PM EST [facility] Radiology Study observation (narrative) [facility] XR Foot - right AP and Later al and obliqueOrdered By: Ccf Provider on 03-29-2022 [facility] ANES Angy 03-20-2019 ANES POST HNO ID: [id number] Author: Julia Villarreal Service: Anesthesiology Author Type: Anesthesiologist Type: Anesthesia PostOp Filed: 03/20/2019 4:17 PM Note Text: POST ANESTHESIA EVALUATION NOTE SERVICE DATE: 03/20/2019 SERVICE TIME: 4:17 PM : 1950 Vitals: 03/20/19 1205 03/20/19 1510 Temp: 36.8 ?C (98.2 ?F) 36.5 ?C (97.7 ?F) 03/20/19 1205 03/20/19 1510 03/20/19 1515 03/20/19 1530 BP: 119/66 91/52 93/52 91/55 03/20/19 1205 03/20/19 1510 03/20/19 1515 03/20/19 1530 Pulse: 73 75 73 64 03/20/19 1205 03/20/19 1510 03/20/19 1515 03/20/19 1530 Resp: 14 16 16 16 03/20/19 1205 03/20/19 1510 03/20/19 1515 03/20/19 1530 SpO2: 98% 93% 92% 95% Validated Vital Signs: Yes POST ANES STATUS: No apparent anesthetic complications. The patient is appropriately hydrated with stable respiratory and cardiovascular status. Patient has safe and adequate airway control. The patient has appropriate pain relief and no significant post operative nausea or vomiting. The patient has achieved baseline mental status. Intra-Operative Events: No Significant Anesthesia Events Further assessment by Anesthesia Service: None Other Remarks: SIGNATURE: Julia Villarreal MD PATIENT NAME: Lauryn Bang DATE: March 20, 2019 TIME: 4:17 PM PAGER/CONTACT #: [phone] [facility] ANES PREOPon 03-20-2019 ANES PREOP HNO ID: [id number] Author: Sacha Garcia Service: ? Author Type: Physician Type: Anesthesia PreOp Filed: 03/20/2019 12:52 PM Note Text: ANESTHESIOLOGY DAY OF SURGERY NOTE SERVICE DATE: 03/20/2019 SERVICE TIME:12:51 : 1950 Procedure(s) (LRB): EXCISION GANGLION HAND (Left) Surgeon(s): Suhas Gloria Estimated body mass index is 27.64 kg/m? as calculated from the following: Height as of this encounter: 162.6 cm (5' 4). Weight as of this encounter: 73 kg (161 lb). Most recent hematocrit and potassium results: Hematocrit 35.6 07/30/2008 Potassium 4.5 12/10/2014 ANES DOS/PREOP NOTE: Vitals: 03/20/19 1205 BP: 119/66 Pulse: 73 Resp: 14 Temp: 36.8 ?C (98.2 ?F) SpO2: 98% Weight: 73 kg (161 lb) Height: 162.6 cm (5' 4) ACTIVE PROBLEM LIST Benign Neoplasm of Colon Chronic Interstitial Cystitis Osteoporosis Heart Murmur Nontoxic Multinodular Goiter Eczematous Dermatitis Contact Dermatitis and Other Eczema, Due to Unspecified Cause Pruritus Urticaria Rash and Other Nonspecific Skin Eruption Ganglion Cyst PAST MEDICAL HISTORY Diagnosis Date - Benign neoplasm of colon - Diaphragmatic hernia without mention of obstruction or gangrene takes tums - Frequent UTI Dr. 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 climacteric states hot flashes, night sweats PAST SURGICAL HISTORY Procedure Laterality Date - COLONOS W/REM POLYP SNARE 06/04/08 - ORAL SURGERY PROCEDURE [place] teeth extracted - ORAL SURGERY PROCEDURE 12/2016 tooth extracted - VAGINAL HYSTERECTOMY 07/29/08 Hysterectomy, vaginal w/ cystocele repair FAMILY HISTORY Problem Relation Age of Onset - Breast Cancer Mother CHF age of breast cancer 60's - Breast Cancer Sister late 50's, - Cancer Sister BRAIN age 70 Social History: Social History Tobacco Use - Smoking status: Never Smoker - Smokeless tobacco: Never Used Substance Use Topics - Alcohol use: Yes Comment: Seldom - Drug use: No No current facility-administered medications on file prior to encounter. Current Outpatient Medications on File Prior to Encounter: meloxicam (MOBIC) 15 mg tablet Take 1 tablet by mouth once daily. clobetasol 0.05 % cream Apply selectively to affected areas active inflamed//itching contact eczematous dermatititis. Avoid face. Short term use only estradiol 0.01 % (0.1 mg/g) vaginal cream Apply pea-sized amount to urethral opening twice a week. Cranberry Ext-C-L. Sporogenes (CRANBERRY-PROBIOTICS -VITAMIN C) 450-30-50 [id number] ORAL Tab Take by mouth. multivitamin ORAL tablet Take 1 tablet by mouth once daily. Current Facility-Administered Medications Medication Dose Route Frequency Provider Last Rate Last Dose - lidocaine 10 mg/mL (1 %) 1-2 mg injection (XYLOCAINE) 0.1-0.2 mL INTRADERMAL PRN Gissel (Pa) Vetovitz - lactated ringers infusion 5-30 mL/hr INTRAVENOUS CONTINUOUS Gissel (Pa) Vetovitz 30 mL/hr at 03/20/19 1214 30 mL/hr at 03/20/19 1214 - clindamycin iv piggyback 600 mg in D5W 50 mL (CLEOCIN) 600 mg INTRAVENOUS Pre-Op Once Gissel (Pa) Vetovitz Allergies: ALLERGIES Allergen Reactions - Augmentin [Amoxicil* Diarrhea - Bactrim [Sulfametho* GI Upset - Doxycycline Rash - Erythromycin unknown - Rondec [Bromphenira* unknown DOS EXAM: Adequate NPO status: Yes Anesthetic risks, benefits, alternatives, personnel and consent discussed: Yes Patient agrees to proceed: Yes Previous Anesthesia: No history of adverse event. Airway Assessment: MP 2; Neck ROM: Full ROM without neurologic symptoms; Airway Evaluation: No significant abnormalities Symptoms of Sleep Apnea: Age over 50 (68 year old) Dentition: Teeth intact Additional Physical Exam: Lungs: normal vesicular breath sounds Cardiac: normal S1 and S2; no rubs, no murmurs, and no gallops Additional Pertinent Findings: N/A Blood Products: Not anticipated for this procedure. Anesthetic Plan: MAC with Sedation Pain Management Plan: Parenteral or Oral ASA Class: 1 Other Medical Problems: None Chronic Beta Gurinder medication administered within 24 hours: N/A I have interviewed and examined the patient. I have reviewed the medical record and/or the pre-anesthesia evaluation, pertinent labs, and test results. Significant changes in the patient's condition since the History and Physical, not otherwise documented in primary service progress notes: No This contains updated information obtained within 48 hours of Surgery/Procedure. SIGNATURE: Sacha Garcia MD PATIENT NAME: Lauryn Bang DATE: March 20, 2019 TIME: 12:51 PM CSN: [id number] [facility] PLAN OF CAREon 03-20-2019 PLAN OF CARE HNO ID: [id number] Author: Gisselle Mckeon (Crematorium Operator) Service: Pharmacy Author Type: ? Type: Plan of Care Filed: 03/20/2019 3:56 PM Note Text: DIE STAMPER BEDSIDE DELIVERY SURVEY 1. Patient to use [facility] Bedside Delivery - YES Insurance Information as follows: 2. Insurance card on file - YES 3. Credit card for payment - YES PHARMACY BEDSIDE DELIVERY SERVICE Patient Name: Lauryn Bang The marked outpatient medications were Filled at: [place] and delivered to the patient's bedside to pharm p/u Medication List START taking these medications HYDROcodone-acetamino phen 5-325 mg per tablet Commonly known as: NORCO Take 1 tablet by mouth every 6 hours as needed for up to 7 days. X CONTINUE taking these medications clobetasol 0.05 % cream Commonly known as: TEMOVATE Apply selectively to affected areas active inflamed//itching contact eczematous dermatititis. Avoid face. Short term use only Cranberry Ext-C-L. Sporogenes 450-30-50 [id number] Tab estradiol 0.01 % (0.1 mg/gram) vaginal cream Commonly known as: ESTRACE Apply pea-sized amount to urethral opening twice a week. meloxicam 15 mg tablet Commonly known as: MOBIC Take 1 tablet by mouth once daily. multivitamin tablet You might also be taking other medications not listed above. If you have questions about any of your other medications, talk to the person who prescribed them or your Primary Care Provider. Gisselle Mckeon (Crematorium Operator) PAGER: [phone] March 20, 2019 3:56 PM [facility] PT EDon 03-20-2019 PT ED HNO ID: [id number] Author: Sangeeta Galvan RN Service: ? Author Type: Registered Nurse Type: Patient Education Filed: 03/20/2019 4:04 PM Note Text: POST OP LEARNING RESPONSE INSTRUCTION PROVIDED TO: Patient and Family member METHOD OF INSTRUCTION: Individual instruction PATIENT / FAMILY RESPONSE: Verbalizes understanding of: POST-OPERATIVE INSTRUCTIONS-Correct actions to take to reduce postoperative complications FOLLOW-UP PLAN: Complete - No need for follow-up SUPPLEMENTAL MATERIAL: None REFERRAL (RECOMMENDATION): None Electronically Signed By: Sangeeta Galvan RN In Department: [facility] SURGERY [facility] PT ED HNO ID: [id number] Author: Nancy Aguayo RN Service: ? Author Type: Registered Nurse Type: Patient Education Filed: 03/20/2019 12:05 PM Note Text: PRE OP LEARNING ASSESSMENT PROCEDURE/SURGERY: SURGERY: Left Thumb Ganglion Cyst READINESS TO LEARN COGNITIVE ABILITY: Alert and oriented MOTIVATION TO LEARN: Interested FAMILY SUPPORT: High - Very involved in pt care PATIENT LEARNS BEST BY: Verbal Instruction FACTORS AFFECTING LEARNING: None PHYSICAL LIMITATIONS AFFECTING LEARNING: Pain Electronically Signed By: Nancy Aguayo RN In Department: [facility] SURGERY [facility] NURSING PROGon 03-11-2019 Protein mass conc HNO ID: [id number] Author: Charu Mclean) GUTIERREZ Tapia Service: ? Author Type: Registered Nurse Type: Nursing Progress Note Filed: 03/12/2019 8:50 AM Note Text: PACC Nurse Progress Note History AND Physical: PACC Visit Date: 03/08/19 Original HANDP Date: N/A ED visit Date: N/A Outside HANDP Scanned Date: N/A Labs Within Last 6 Months: N/A Imaging Within Last 12 Months: See chart Cardiac Testing: N/A Last Menstrual Period: LMP Date: N/A Postmenopausal >1yr: N/A, S/P Hysterectomy: Yes BMI Percentile (PEDS): N/A Risk Assessment: N/A Anesthesia Review: N/A Narrative: N/A Pre-op Considerations: N/A Chart Check: Complete Charu Tapia RN March 11, 2019 2:13 PM [facility] HOSPon 02-27-2019 HOSP Patient:Lauryn Bang MRN: Height:5' 4(1.626 m) Weight:161 lb (73.029 kg) Outpatient Medications as of 03/20/19: meloxicam (MOBIC) 15 mg tablet clobetasol 0.05 % cream estradiol 0.01 % (0.1 mg/g) vaginal cream Cranberry Ext-C-L. Sporogenes (CRANBERRY-PROBIOTICS -VITAMIN C) 450-30-50 [id number] ORAL Tab multivitamin ORAL tablet Admission/Clinic Administered Medications as of 03/20/19: lidocaine 10 mg/mL (1 %) 1-2 mg injection (XYLOCAINE) lactated ringers infusion clindamycin iv piggyback 600 mg in D5W 50 mL (CLEOCIN) Problem List: Benign neoplasm of colon [D12.6] Chronic interstitial cystitis [N30.10] Osteoporosis [M81.0] Heart murmur [R01.1] Nontoxic multinodular goiter [E04.2] Eczematous dermatitis [L30.9] Contact dermatitis and other eczema, due to unspecified cause [L25.9] Pruritus [L29.9] Urticaria [L50.9] Rash and other nonspecific skin eruption [R21] Ganglion cyst [M67.40] Allergies: Augmentin [Amoxicillin-Pot Clavulanate] Bactrim [Sulfamethoxazole] Doxycycline Erythromycin Rondec [Brompheniramine-Pseu doephedrin] Date Verified: 03/20/19 Lab Values No results within the last 30 days for the following basenames: K,HCT Progress Notes ([facility]): Lorri Chang Ma 02/27/2019 10:32 AM Signed Please schedule patient for excision of left thumb ganglion cyst on 03/20/2019 under MAC anesthesia. Please schedule post op appointments in [place]. Edith Briones [facility] 02/27/2019 2:49 PM Signed Surgical request and post ops completed. Lorri Chang Ma 02/27/2019 4:19 PM Signed Patient has been scheduled as requested. Progress Notes ([facility]): Lorri Chang Ma 02/27/2019 11:29 AM Signed AMB ROOMING INTAKE FLOWSHEET DATA Risk Screening Do you have concerns about personal safety or safety in the home?: No Pain Pain Level: 4 Pain Location: Wrist-Right Description: Dull Duration Amount of Time: (ongoing) Frequency: Intermittent Intervention: Other: See comment(none) Patient here today for 4 week 1 day post visit right wrist injury and left thumb cyst. States she still has pain with weight on the wrist. Cyst bothers her when she holds glasses in her hand to clean them. Gissel Covarrubias PA-C 02/27/2019 11:29 AM Signed Gissel Covarrubias PA-C Department of Orthopaedics Orthopaedics [address] [facility] [address] Dept: [phone] Dept February 27, 2019 CHIEF COMPLAINT: Established Patient (4 week 1 day post visit right wrist injury and ganglion cyst left 4th finger ) HPI: Ms. Lauryn Bang is a 68 year old female. Patient presents with right wrist pain and a cyst on her left thumb. Patient states that her right wrist pain started following an injury about 4 weeks ago. Patient was descending the stairs when she lost her footing and grab hold of the railing with her right hand. The patient states that her wrist was straining during the fall. She continues to have ulnar-sided wrist pain especially with ulnar deviation. The patient was seen in urgent care and placed in a brace. She admits that she has not tried any type of an anti-inflammatory or icing. 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 The patient also has a cyst on the radial aspect of her left thumb that has been present for the past several months. Cyst is enlarging with time and is tender to the touch or if it is bumped. Pain today is a 4 out of 10. ASSESSMENT: M77.8 Right wrist tendonitis (primary encounter diagnosis) M67.40 Ganglion cyst PLAN: The patient's right wrist we will get her on an oral anti-inflammatory. We will have her continue bracing and also work on stretching and icing. Patient will like to proceed with excision of left thumb ganglion cyst. We discussed surgical intervention, the patients questions were addressed. The risks, benefits, alternatives and were discussed, patinet understands and wishes to pursue surgical intervention. Ms. Lauryn Bang was advised as to contrast therapies and/or to take analgesics/anti-infla mmatories as needed and all contraindications were reviewed. OBJECTIVE: Ms. Lauryn Bang is a pleasant 68 year old in no apparent distress. Gen:There were no vitals taken for this visit. wnl development, non obese, no deformities ENT: Normocephalic, normal hearing, moist mucosa CV: Pulses:Radial= 2+ and symmetric, capillary refill < 2 secs, no peripheral edema/varicosities Skin: no rash, bruising or lesions. Good turgor. Psych: cooperative and appropriate, alert and oriented x 3, good mood and affect. Musculoskeletal: Right wrist without edema or ecchymosis. Tenderness to palpation just distal to the ulnar styloid. Subjective pain of the wrist with ulnar deviation. Range of motion of the right wrist is intact. Patient is neurologically intact. Left thumb with a ganglion cyst along the radial aspect just proximal to the IP joint. Range of motion of the digit is intact, patient is neurologically intact. IMAGING: IMPRESSION: No acute bone or joint space abnormality. Positive ulnar variance. Accident Examiner: CAMI ? Transcribe Date/Time: Jan 29 2019 11:08A Dictated by : Bisi VALENCIA MD This examination was interpreted and the report reviewed and electronically signed by: Bisi VALENCIA MD on Jan 29 2019 11:10AM ?EST Results-Findings * * *Final Report* * * DATE OF EXAM: Jan 29 2019 10:59AM ? WOX ? [id number] ?- ?XR WRIST 3V PA/LAT/OBL RT ?/ PROCEDURE REASON: Wrist injury, right, initial encounter ?? ? * * * * Physician Interpretation * * * * ?EXAM: XR WRIST 3V PA/LAT/OBL RT HISTORY: Wrist injury, right, initial encounter ? . ?Fall x1 month ago, ulnar sided pain. VIEWS: PA, oblique and lateral right wrist. COMPARISON: No relevant comparison. FINDINGS: No dislocation, acute fracture or osteolysis. ?Maintained radiocarpal joint and midcarpal compartment. ?Positive ulnar variance. Supporting Subjective Information Below: Past Medical History: PAST MEDICAL HISTORY Diagnosis Date - Benign neoplasm of colon - Diaphragmatic hernia without mention of obstruction or gangrene takes tums - Frequent UTI Dr. 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 climacteric states hot flashes, night sweats Past Surgical History: PAST SURGICAL HISTORY Procedure Laterality Date - COLONOS W/REM POLYP SNARE 06/04/08 - ORAL SURGERY PROCEDURE [place] teeth extracted - ORAL SURGERY PROCEDURE 12/2016 tooth extracted - VAGINAL HYSTERECTOMY 07/29/08 Hysterectomy, vaginal w/ cystocele repair Family History: FAMILY HISTORY Problem Relation Age of Onset - Breast Cancer Mother CHF age of breast cancer 60's - Breast Cancer Sister late 50's, - Cancer Sister BRAIN age 70 Social History:Social History Socioeconomic History Marital status: Spouse name: Gavin Number of children: 2 Years of education: 16 Highest education level: Not on file Social Needs Financial resource strain: Not on file Food insecurity - worry: Not on file Food insecurity - inability: Not on file Transportation needs - medical: Not on file Transportation needs - non-medical: Not on file Occupational History 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 Cranberry Ext-C-L. Sporogenes (CRANBERRY-PROBIOTICS -VITAMIN C) 450-30-50 [id number] ORAL Tab Take by mouth. multivitamin ORAL tablet Take 1 tablet by mouth once daily. meloxicam (MOBIC) 15 mg tablet Take 1 tablet by mouth once daily. calcium carbonate (CALCIUM ANTACID) 500 mg chew Take 1 tablet by mouth every 2 hours as needed (for heartburn). (Patient not taking: Reported on 01/29/2019 ) triamcinolone acetonide (NASACORT) 55 mcg nasal inhaler Use 2 Sprays in the nose once daily. sulfamethoxazole-trim ethoprim (BACTRIM DS) 800-160 mg per tablet Take 1 tablet by mouth as directed. After intercourse nitrofurantoin (MACRODANTIN) 25 mg capsule Take 1 capsule by mouth daily at bedtime. (Patient not taking: Reported on 01/29/2019 ) clobetasol 0.05 % cream Apply selectively to affected areas active inflamed//itching contact eczematous dermatititis. Avoid face. Short term use only No current facility-administered medications for this visit. Allergies: Augmentin [Amoxicillin-Pot Clavulanate]; Bactrim [Sulfamethoxazole]; Doxycycline; Erythromycin; Rondec [Brompheniramine-Pseu doephedrin] ROS: General (negative for fatigue, malaise, weight loss/gain) HEENT (negative for headache, earache, recent vision changes, sinus pain, sore throat) Respiratory (no recent shortness of breath, hemoptysis) CV (negative for chest tightness, palpitations) Musculoskeletal (see HPI) Psych (no depression, anxiety) REFERRING PHYSICIAN: Ms. Lauryn Bang was referred to me for consultation by the following physician. This consultation note will be sent to the following physician by either mail or electronic medical record. Nuris Enriquez PA-C [address] [facility] [address] Júnior Raygoza MD [address] [facility] [address] This note was partially generated using [employer] voice recognition system, and there may be some incorrect words, spellings, and punctuation that were not noted in checking the note before saving. Gissel Covarrubias PA-C Normal [facility] Culture, urine Bacteria identified Cx Nom (U) Positive [facility] Work Phone: Vital Signs Date Time Vital Sign Value Performing Clinician Faci lity 04-29-2025 08:51-0400 Body mass index (BMI) [Ratio] 28.35 kg/m2 Perry Bautista MD Work Phone: [facility] 04-29-2025 08:51-0400 Body weight 70.31 kg Perry Bautista MD Work Phone: [facility] 04-29-2025 08:51-0400 Diastolic blood pressure 76 mm[Hg] Perry Bautista MD Work Phone: [facility] 04-29-2025 08:51-0400 Heart rate 64 /min Perry Bautista MD Work Phone: [facility] 04-29-2025 08:51-0400 Systolic blood pressure 130 mm[Hg] Perry Bautista MD Work Phone: [facility] 02-14-2025 13:43-0400 Diastolic blood pressure 72 mm[Hg] Fanta Berenice PLYWOOD PATCHER.METALLURGICAL ENGINEERING TECHNICIAN Work Phone: [facility] 02-14-2025 13:43-0400 Systolic blood pressure 124 mm[Hg] Fanta Berenice PLYWOOD PATCHER.METALLURGICAL ENGINEERING TECHNICIAN Work Phone: [facility] 02-14-2025 13:41-0400 Body mass index (BMI) [Ratio] 28.63 kg/m2 Fanta Berenice PLYWOOD PATCHER.METALLURGICAL ENGINEERING TECHNICIAN Work Phone: [facility] 02-14-2025 13:41-0400 Body weight 71 kg Fanta Berenice PLYWOOD PATCHER.METALLURGICAL ENGINEERING TECHNICIAN Work Phone: [facility] 02-14-2025 13:41-0400 Heart rate 97 /min Fanta Berenice PLYWOOD PATCHER.METALLURGICAL ENGINEERING TECHNICIAN Work Phone: [facility] 02-14-2025 13:41-0400 SaO2% (BldA) [Mass fraction] 96 % Fanta Trammell PLYWOOD PATCHER.METALLURGICAL ENGINEERING TECHNICIAN Work Phone: [facility] 02-13-2025 14:51-0400 Body mass index (BMI) [Ratio] 29.07 kg/m2 Dinh Barksdale PLYWOOD PATCHER.METALLURGICAL ENGINEERING TECHNICIAN Work Phone: [facility] 02-13-2025 14:51-0400 Body temperature 98.8 [degF] Dinh Barksdale PLYWOOD PATCHER.METALLURGICAL ENGINEERING TECHNICIAN Work Phone: [facility] 02-13-2025 14:51-0400 Body weight 72.1 kg Dinh Barksdale PLYWOOD PATCHER.METALLURGICAL ENGINEERING TECHNICIAN Work Phone: [facility] 02-13-2025 14:51-0400 Diastolic blood pressure 75 mm[Hg] Dinh Barksdale PLYWOOD PATCHER.METALLURGICAL ENGINEERING TECHNICIAN Work Phone: [facility] 02-13-2025 14:51-0400 Heart rate 86 /min iDnh Barksdale PLYWOOD PATCHER.METALLURGICAL ENGINEERING TECHNICIAN Work Phone: [facility] 02-13-2025 14:51-0400 Respiratory rate 18 /min Dinh Barksdale PLYWOOD PATCHER.METALLURGICAL ENGINEERING TECHNICIAN Work Phone: [facility] 02-13-2025 14:51-0400 SaO2% (BldA) [Mass fraction] 98 % Dinh Barksdale PLYWOOD PATCHER.METALLURGICAL ENGINEERING TECHNICIAN Work Phone: [facility] 02-13-2025 14:51-0400 Systolic blood pressure 137 mm[Hg] Dinh Barksdale PLYWOOD PATCHER.METALLURGICAL ENGINEERING TECHNICIAN Work Phone: [facility] 01-17-2025 11:41-0400 Body mass index (BMI) [Ratio] 29.01 kg/m2 Ashlyn Keita PLYWOOD PATCHER.METALLURGICAL ENGINEERING TECHNICIAN Work Phone: [facility] 01-17-2025 11:41-0400 Body weight 71.94 kg Ashlyn Keita PLYWOOD PATCHER.METALLURGICAL ENGINEERING TECHNICIAN Work Phone: [facility] 01-17-2025 11:41-0400 Diastolic blood pressure 88 mm[Hg] Ashlyn Podlogar PLYWOOD PATCHER.METALLURGICAL ENGINEERING TECHNICIAN Work Phone: [facility] 01-17-2025 11:41-0400 Heart rate 62 /min Ashlyn Podlogar PLYWOOD PATCHER.METALLURGICAL ENGINEERING TECHNICIAN Work Phone: [facility] 01-17-2025 11:41-0400 Respiratory rate 18 /min Ashlyn Podlogar PLYWOOD PATCHER.METALLURGICAL ENGINEERING TECHNICIAN Work Phone: [facility] 01-17-2025 11:41-0400 SaO2% (BldA) [Mass fraction] 94 % Ashlyn Podlogar PLYWOOD PATCHER.METALLURGICAL ENGINEERING TECHNICIAN Work Phone: [facility] 01-17-2025 11:41-0400 Systolic blood pressure 132 mm[Hg] Ashlyn Podlogar PLYWOOD PATCHER.METALLURGICAL ENGINEERING TECHNICIAN Work Phone: [facility] 12-24-2024 10:32-0400 Body mass index (BMI) [Ratio] 28.63 kg/m2 Regine Ivey PLYWOOD PATCHER.METALLURGICAL ENGINEERING TECHNICIAN Work Phone: [facility] 12-24-2024 10:32-0400 Body weight 71 kg Regine Ivey PLYWOOD PATCHER.METALLURGICAL ENGINEERING TECHNICIAN Work Phone: [facility] 12-24-2024 10:32-0400 Diastolic blood pressure 76 mm[Hg] Regine Ivey PLYWOOD PATCHER.METALLURGICAL ENGINEERING TECHNICIAN Work Phone: [facility] 12-24-2024 10:32-0400 Heart rate 82 /min Regine Ivey PLYWOOD PATCHER.METALLURGICAL ENGINEERING TECHNICIAN Work Phone: [facility] 12-24-2024 10:32-0400 Systolic blood pressure 126 mm[Hg] Regine Ivey [employer]YWOOD PATCHER.METALLURGICAL ENGINEERING TECHNICIAN Work Phone: [facility] 12-09-2024 15:25-0500 Body mass index (BMI) [Ratio] 30.28 kg/m2 Dinh Barksdale [employer]YWOOD PATCHER.METALLURGICAL ENGINEERING TECHNICIAN Work Phone: [facility] 12-09-2024 15:25-0500 Body temperature 99.7 [degF] Dinh Barksdale [employer]YWOOD PATCHER.METALLURGICAL ENGINEERING TECHNICIAN Work Phone: [facility] 12-09-2024 15:25-0500 Body weight 75.1 kg [facility] [employer]ER.METALLURGICAL ENGINEERING TECHNICIAN Work Phone: [facility] 12-09-2024 15:25-0500 Diastolic blood pressure 82 mm[Hg] [facility] P[facility]ER.METALLURGICAL ENGINEERING TECHNICIAN Work Phone: [facility] 12-09-2024 15:25-0500 Heart rate 73 /min [facility] [employer] P[employer]ER.METALLURGICAL ENGINEERING TECHNICIAN Work Phone: [facility] 12-09-2024 15:25-0500 Respiratory rate 18 /min [facility] [employer] P[employer]ER.METALLURGICAL ENGINEERING TECHNICIAN Work Phone: [facility] 12-09-2024 15:25-0500 SaO2% (BldA) [Mass fraction] 96 % [facility] PLYWOOD PATCHER.METALLURGICAL ENGINEERING TECHNICIAN Work Phone: [facility] 12-09-2024 15:25-0500 Systolic blood pressure 136 mm[Hg] [facility] [employer]OD PATCHER.METALLURGICAL ENGINEERING TECHNICIAN Work Phone: [facility] 11-18-2024 10:29-0500 Body height 157.5 cm Bety Iglesias MD Work Phone: [facility] 11-18-2024 10:29-0500 Body mass index (BMI) [Ratio] 29.26 kg/m2 Bety Iglesias MD Work Phone: [facility] 11-18-2024 10:29-0500 Body weight 72.58 kg Bety Iglesias MD Work Phone: [facility] 11-18-2024 10:29-0500 Diastolic blood pressure 72 mm[Hg] Bety Iglesias MD Work Phone: [facility] 11-18-2024 10:29-0500 Heart rate 71 /min Bety Iglesias MD Work Phone: [facility] 11-18-2024 10:29-0500 Respiratory rate 12 /min Bety Iglesias MD Work Phone: [facility] 11-18-2024 10:29-0500 SaO2% (BldA) [Mass fraction] 98 % Bety Iglesias MD Work Phone: [facility] 11-18-2024 10:29-0500 Systolic blood pressure 126 mm[Hg] Bety Iglesias MD Work Phone: [facility] 11-12-2024 10:45-0500 Body height 160 cm Ashlyn Podlogar PLYWOOD PATCHER.METALLURGICAL ENGINEERING TECHNICIAN Work Phone: [facility] 11-12-2024 10:45-0500 Body mass index (BMI) [Ratio] 28.59 kg/m2 Ashlyn Podlogar PLYWOOD PATCHER.METALLURGICAL ENGINEERING TECHNICIAN Work Phone: [facility] 11-12-2024 10:45-0500 Body weight 73.2 kg Ashlyn Podlogar PLYWOOD PATCHER.METALLURGICAL ENGINEERING TECHNICIAN Work Phone: [facility] 11-12-2024 10:45-0500 Diastolic blood pressure 88 mm[Hg] Ashlyn Podlogar PLYWOOD PATCHER.METALLURGICAL ENGINEERING TECHNICIAN Work Phone: [facility] 11-12-2024 10:45-0500 Heart rate 64 /min Ashlyn Podlogar PLYWOOD PATCHER.METALLURGICAL ENGINEERING TECHNICIAN Work Phone: [facility] 11-12-2024 10:45-0500 Respiratory rate 18 /min Ashlyn Podlogar PLYWOOD PATCHER.METALLURGICAL ENGINEERING TECHNICIAN Work Phone: [facility] 11-12-2024 10:45-0500 SaO2% (BldA) [Mass fraction] 94 % Ashlyn Podlogar PLYWOOD PATCHER.METALLURGICAL ENGINEERING TECHNICIAN Work Phone: [facility] 11-12-2024 10:45-0500 Systolic blood pressure 150 mm[Hg] Ashlyn Podlogar PLYWOOD PATCHER.METALLURGICAL ENGINEERING TECHNICIAN Work Phone: [facility] 10-14-2024 15:33-0500 Body mass index (BMI) [Ratio] 28.46 kg/m2 Rojas Fajardoomajoseph PLYWOOD PATCHER.METALLURGICAL ENGINEERING TECHNICIAN Work Phone: [facility] 10-14-2024 15:33-0500 Body temperature 99.3 [degF] Rojas Kelly PLYWOOD PATCHER.METALLURGICAL ENGINEERING TECHNICIAN Work Phone: [facility] 10-14-2024 15:33-0500 Body weight 75.2 kg Rojas Moomaw PLYWOOD PATCHER.METALLURGICAL ENGINEERING TECHNICIAN Work Phone: [facility] 10-14-2024 15:33-0500 Diastolic blood pressure 74 mm[Hg] Rojas Moomaw PLYWOOD PATCHER.METALLURGICAL ENGINEERING TECHNICIAN Work Phone: [facility] 10-14-2024 15:33-0500 Heart rate 90 /min Rojas Moomaw PLYWOOD PATCHER.METALLURGICAL ENGINEERING TECHNICIAN Work Phone: [facility] 10-14-2024 15:33-0500 Respiratory rate 19 /min Rojas Moomaw PLYWOOD PATCHER.METALLURGICAL ENGINEERING TECHNICIAN Work Phone: [facility] 10-14-2024 15:33-0500 SaO2% (BldA) [Mass fraction] 95 % Rojas Moomaw PLYWOOD PATCHER.METALLURGICAL ENGINEERING TECHNICIAN Work Phone: [facility] 10-14-2024 15:33-0500 Systolic blood pressure 100 mm[Hg] Rojas Moomaw PLYWOOD PATCHER.METALLURGICAL ENGINEERING TECHNICIAN Work Phone: [facility] 05-07-2024 14:18-0400 Body height 162.6 cm Katerine Rizo MD Work Phone: [facility] 05-07-2024 14:18-0400 Body mass index (BMI) [Ratio] 27.46 kg/m2 Katerine Rizo MD Work Phone: [facility] 05-07-2024 14:18-0400 Body temperature 98.6 [degF] Katerine Rizo MD Work Phone: [facility] 05-07-2024 14:18-0400 Body weight 72.58 kg Katerine Rizo MD Work Phone: [facility] 05-07-2024 14:18-0400 Diastolic blood pressure 72 mm[Hg] Katerine Rizo MD Work Phone: [facility] 05-07-2024 14:18-0400 Heart rate 87 /min Katerine Rizo MD Work Phone: [facility] 05-07-2024 14:18-0400 Respiratory rate 16 /min Katerine Rizo MD Work Phone: [facility] 05-07-2024 14:18-0400 SaO2% (BldA) [Mass fraction] 97 % Katerine Rizo MD Work Phone: [facility] 05-07-2024 14:18-0400 Systolic blood pressure 112 mm[Hg] Katerine Rizo MD Work Phone: [facility] 05-06-2024 10:53-0400 Body mass index (BMI) [Ratio] 27.81 kg/m2 Bety Iglesias MD Work Phone: [facility] 05-06-2024 10:53-0400 Body weight 73.48 kg Bety Iglesias MD Work Phone: [facility] 05-06-2024 10:53-0400 Diastolic blood pressure 85 mm[Hg] Bety Iglesias MD Work Phone: [facility] 05-06-2024 10:53-0400 Heart rate 96 /min Bety Iglesias MD Work Phone: [facility] 05-06-2024 10:53-0400 SaO2% (BldA) [Mass fraction] 100 % Bety Iglesias MD Work Phone: [facility] 05-06-2024 10:53-0400 Systolic blood pressure 141 mm[Hg] Bety Iglesias MD Work Phone: [facility] 05-04-2024 10:40-0400 Body mass index (BMI) [Ratio] 27.89 kg/m2 Sharri Aj APRN.METALLURGICAL ENGINEERING TECHNICIAN Work Phone: [facility] 05-04-2024 10:40-0400 Body temperature 98.49 [degF] Sharri Aj APRN.METALLURGICAL ENGINEERING TECHNICIAN Work Phone: [facility] 05-04-2024 10:40-0400 Body weight 73.7 kg Sharri Aj APRN.METALLURGICAL ENGINEERING TECHNICIAN Work Phone: [facility] 05-04-2024 10:40-0400 Diastolic blood pressure 88 mm[Hg] Sharri Aj APRN.METALLURGICAL ENGINEERING TECHNICIAN Work Phone: [facility] 05-04-2024 10:40-0400 Heart rate 86 /min Sharriashok Aj APRN.METALLURGICAL ENGINEERING TECHNICIAN Work Phone: [facility] 05-04-2024 10:40-0400 Respiratory rate 18 /min Sharri Aj NEPTALI.METALLURGICAL ENGINEERING TECHNICIAN Work Phone: [facility] 05-04-2024 10:40-0400 SaO2% (BldA) [Mass fraction] 99 % Sharri Aj NEPTALI.METALLURGICAL ENGINEERING TECHNICIAN Work Phone: [facility] 05-04-2024 10:40-0400 Systolic blood pressure 148 mm[Hg] Sharri Jean Marie GUNDERSON.METALLURGICAL ENGINEERING TECHNICIAN Work Phone: [facility] 04-30-2024 09:28-0400 Body height 162.6 cm Priti Bowser MD Work Phone: [facility] 04-30-2024 09:28-0400 Body mass index (BMI) [Ratio] 27.64 kg/m2 Priti Bowser MD Work Phone: [facility] 04-30-2024 09:28-0400 Body temperature 97.11 [degF] Priti Bowser MD Work Phone: [facility] 04-30-2024 09:28-0400 Body weight 73.03 kg Priti Bowser MD Work Phone: [facility] 04-30-2024 09:28-0400 Diastolic blood pressure 84 mm[Hg] Priti Bowser MD Work Phone: [facility] 04-30-2024 09:28-0400 Heart rate 98 /min Priti Bowser MD Work Phone: [facility] 04-30-2024 09:28-0400 SaO2% (BldA) [Mass fraction] 96 % Priti Bowser MD Work Phone: [facility] 04-30-2024 09:28-0400 Systolic blood pressure 128 mm[Hg] Priti Bowser MD Work Phone: [facility] 03-30-2024 10:05-0400 Body mass index (BMI) [Ratio] 28.73 kg/m2 Perry Bautista MD Work Phone: [facility] 03-30-2024 10:05-0400 Body temperature 97.81 [degF] Perry Bautista MD Work Phone: [facility] 03-30-2024 10:05-0400 Body weight 73.57 kg Perry Bautista MD Work Phone: [facility] 03-30-2024 10:05-0400 Diastolic blood pressure 70 mm[Hg] Perry Bautista MD Work Phone: [facility] 03-30-2024 10:05-0400 Heart rate 84 /min Perry Bautista MD Work Phone: [facility] 03-30-2024 10:05-0400 Respiratory rate 16 /min Perry Bautista MD Work Phone: [facility] 03-30-2024 10:05-0400 SaO2% (BldA) [Mass fraction] 97 % Perry Bautista MD Work Phone: [facility] 03-30-2024 10:05-0400 Systolic blood pressure 126 mm[Hg] Perry Bautista MD Work Phone: [facility] 03-23-2024 11:40-0400 Body mass index (BMI) [Ratio] 28.74 kg/m2 Regine Ivey APRN.METALLURGICAL ENGINEERING TECHNICIAN Work Phone: [facility] 03-23-2024 11:40-0400 Body temperature 97.59 [degF] Regine Ivey APRN.METALLURGICAL ENGINEERING TECHNICIAN Work Phone: [facility] 03-23-2024 11:40-0400 Body weight 73.6 kg Regine Ivey APRN.METALLURGICAL ENGINEERING TECHNICIAN Work Phone: [facility] 03-23-2024 11:40-0400 Diastolic blood pressure 82 mm[Hg] Regine Ivey APRN.METALLURGICAL ENGINEERING TECHNICIAN Work Phone: [facility] 03-23-2024 11:40-0400 Heart rate 90 /min Regine Ivey PLYWOOD PATCHER.METALLURGICAL ENGINEERING TECHNICIAN Work Phone: [facility] 03-23-2024 11:40-0400 Respiratory rate 20 /min Regine Ivey PLYWOOD PATCHER.METALLURGICAL ENGINEERING TECHNICIAN Work Phone: [facility] 03-23-2024 11:40-0400 SaO2% (BldA) [Mass fraction] 98 % Regine Ivey PLYWOOD PATCHER.METALLURGICAL ENGINEERING TECHNICIAN Work Phone: [facility] 03-23-2024 11:40-0400 Systolic blood pressure 132 mm[Hg] Regine Ivey PLYWOOD PATCHER.METALLURGICAL ENGINEERING TECHNICIAN Work Phone: [facility] 11-22-2023 11:27-0500 Body temperature 99.7 [degF] Alicia Jurado PLYWOOD PATCHER.METALLURGICAL ENGINEERING TECHNICIAN Work Phone: [facility] 11-22-2023 11:27-0500 Body weight 76.2 kg Alicia Rhiannon PLYWOOD PATCHER.METALLURGICAL ENGINEERING TECHNICIAN Work Phone: [facility] 11-22-2023 11:27-0500 Diastolic blood pressure 80 mm[Hg] Alicia Jurado PLYWOOD PATCHER.METALLURGICAL ENGINEERING TECHNICIAN Work Phone: [facility] 11-22-2023 11:27-0500 Heart rate 88 /min Alicia Jurado PLYWOOD PATCHER.METALLURGICAL ENGINEERING TECHNICIAN Work Phone: [facility] 11-22-2023 11:27-0500 Respiratory rate 16 /min Alicia Jurado PLYWOOD PATCHER.METALLURGICAL ENGINEERING TECHNICIAN Work Phone: [facility] 11-22-2023 11:27-0500 SaO2% (BldA) [Mass fraction] 97 % Alicia Jurado PLYWOOD PATCHER.METALLURGICAL ENGINEERING TECHNICIAN Work Phone: [facility] 11-22-2023 11:27-0500 Systolic blood pressure 120 mm[Hg] Alicia Jurado PLYWOOD PATCHER.METALLURGICAL ENGINEERING TECHNICIAN Work Phone: [facility] 07-18-2023 11:22-0400 Body height 160.6 cm Ashlyn Keita PLYWOOD PATCHER.METALLURGICAL ENGINEERING TECHNICIAN Work Phone: [facility] 07-18-2023 11:22-0400 Body weight 75.84 kg Ashlyn Podlogar PLYWOOD PATCHER.METALLURGICAL ENGINEERING TECHNICIAN Work Phone: [facility] 07-18-2023 11:22-0400 Diastolic blood pressure 76 mm[Hg] Ashlyn Podlogar PLYWOOD PATCHER.METALLURGICAL ENGINEERING TECHNICIAN Work Phone: [facility] 07-18-2023 11:22-0400 Heart rate 74 /min Ashlyn Podlogar PLYWOOD PATCHER.METALLURGICAL ENGINEERING TECHNICIAN Work Phone: [facility] 07-18-2023 11:22-0400 Respiratory rate 16 /min Ashlyn Podlogar PLYWOOD PATCHER.METALLURGICAL ENGINEERING TECHNICIAN Work Phone: [facility] 07-18-2023 11:22-0400 SaO2% (BldA) [Mass fraction] 97 % Ashlyn Podlogar PLYWOOD PATCHER.METALLURGICAL ENGINEERING TECHNICIAN Work Phone: [facility] 07-18-2023 11:22-0400 Systolic blood pressure 118 mm[Hg] Ashlyn Podlogar PLYWOOD PATCHER.METALLURGICAL ENGINEERING TECHNICIAN Work Phone: [facility] 06-30-2023 09:55-0400 Body height 160.6 cm Ashlyn Podlogar PLYWOOD PATCHER.METALLURGICAL ENGINEERING TECHNICIAN Work Phone: [facility] 06-30-2023 09:55-0400 Body weight 75.3 kg Ashlyn Podlogar PLYWOOD PATCHER.METALLURGICAL ENGINEERING TECHNICIAN Work Phone: [facility] 06-30-2023 09:55-0400 Diastolic blood pressure 78 mm[Hg] Ashlyn Podlogar PLYWOOD PATCHER.METALLURGICAL ENGINEERING TECHNICIAN Work Phone: [facility] 06-30-2023 09:55-0400 Heart rate 88 /min Ashlyn Podlogar PLYWOOD PATCHER.METALLURGICAL ENGINEERING TECHNICIAN Work Phone: [facility] 06-30-2023 09:55-0400 Respiratory rate 16 /min Ashlyn Podlogar PLYWOOD PATCHER.METALLURGICAL ENGINEERING TECHNICIAN Work Phone: [facility] 06-30-2023 09:55-0400 SaO2% (BldA) [Mass fraction] 92 % Ashlyn Podlogar PLYWOOD PATCHER.METALLURGICAL ENGINEERING TECHNICIAN Work Phone: [facility] 06-30-2023 09:55-0400 Systolic blood pressure 116 mm[Hg] Ashlyn Keita PLYWOOD PATCHER.METALLURGICAL ENGINEERING TECHNICIAN Work Phone: [facility] 04-20-2023 13:29-0400 Heart rate 83 /min Leonard Poe MD Work Phone: [facility] 04-20-2023 13:29-0400 Respiratory rate 16 /min Leonard Poe MD Work Phone: [facility] 04-20-2023 13:29-0400 SaO2% (BldA) [Mass fraction] 95 % Leonard Poe MD Work Phone: [facility] 01-20-2023 11:12-0400 Body temperature 99.19 [degF] Alicia Jurado PLYWOOD PATCHER.METALLURGICAL ENGINEERING TECHNICIAN Work Phone: [facility] 01-20-2023 11:12-0400 Body weight 75.21 kg Alicia Jurado PLYWOOD PATCHER.METALLURGICAL ENGINEERING TECHNICIAN Work Phone: [facility] 01-20-2023 11:12-0400 Diastolic blood pressure 76 mm[Hg] Alicia Jurado PLYWOOD PATCHER.METALLURGICAL ENGINEERING TECHNICIAN Work Phone: [facility] 01-20-2023 11:12-0400 Heart rate 90 /min Alicia Jurado PLYWOOD PATCHER.METALLURGICAL ENGINEERING TECHNICIAN Work Phone: [facility] 01-20-2023 11:12-0400 Respiratory rate 18 /min Alicia Juraod PLYWOOD PATCHER.METALLURGICAL ENGINEERING TECHNICIAN Work Phone: [facility] 01-20-2023 11:12-0400 SaO2% (BldA) [Mass fraction] 96 % Alicia Jurado PLYWOOD PATCHER.METALLURGICAL ENGINEERING TECHNICIAN Work Phone: [facility] 01-20-2023 11:12-0400 Systolic blood pressure 122 mm[Hg] Alicia Jurado PLYWOOD PATCHER.METALLURGICAL ENGINEERING TECHNICIAN Work Phone: [facility] 11-17-2022 14:11-0500 Heart rate 85 /min Leonard Poe MD Work Phone: [facility] 11-17-2022 14:11-0500 Respiratory rate 16 /min Leonard Poe MD Work Phone: [facility] 11-17-2022 14:11-0500 SaO2% (BldA) [Mass fraction] 98 % Leonard Poe MD Work Phone: [facility] 10-17-2022 14:42-0500 Body weight 74.57 kg Ashlyn Podlogar PLYWOOD PATCHER.METALLURGICAL ENGINEERING TECHNICIAN Work Phone: [facility] 10-17-2022 14:42-0500 Diastolic blood pressure 78 mm[Hg] Ashlyn Podlogar PLYWOOD PATCHER.METALLURGICAL ENGINEERING TECHNICIAN Work Phone: [facility] 10-17-2022 14:42-0500 Heart rate 103 /min Ashlyn Podlogar PLYWOOD PATCHER.METALLURGICAL ENGINEERING TECHNICIAN Work Phone: [facility] 10-17-2022 14:42-0500 Respiratory rate 16 /min Ashlyn Podlogar PLYWOOD PATCHER.METALLURGICAL ENGINEERING TECHNICIAN Work Phone: [facility] 10-17-2022 14:42-0500 SaO2% (BldA) [Mass fraction] 97 % Ashlyn Podlogar PLYWOOD PATCHER.METALLURGICAL ENGINEERING TECHNICIAN Work Phone: [facility] 10-17-2022 14:42-0500 Systolic blood pressure 142 mm[Hg] Ashlyn Podlogar PLYWOOD PATCHER.METALLURGICAL ENGINEERING TECHNICIAN Work Phone: [facility] 09-26-2022 14:27-0500 Heart rate 88 /min Nuris Bogner PA-C Work Phone: [facility] 09-26-2022 14:11-0500 Body temperature 98.4 [degF] Nuris Bogner PA-C Work Phone: [facility] 09-26-2022 14:11-0500 Body weight 73.66 kg Nuris Bogner PA-C Work Phone: [facility] 09-26-2022 14:11-0500 Diastolic blood pressure 92 mm[Hg] Nuris Bogner PA-C Work Phone: [facility] 09-26-2022 14:11-0500 Respiratory rate 18 /min Nuris Bogner PA-C Work Phone: [facility] 09-26-2022 14:11-0500 SaO2% (BldA) [Mass fraction] 98 % Nuris Bogner PA-C Work Phone: [facility] 09-26-2022 14:11-0500 Systolic blood pressure 142 mm[Hg] Nuris Bogner PA-C Work Phone: [facility] 08-04-2022 13:58-0400 Body temperature 97.9 [degF] Cornelia Lin PLYWOOD PATCHER.METALLURGICAL ENGINEERING TECHNICIAN Work Phone: [facility] 08-04-2022 13:58-0400 Body weight 74.3 kg Cornelia Ceballos PLYWOOD PATCHER.METALLURGICAL ENGINEERING TECHNICIAN Work Phone: [facility] 08-04-2022 13:58-0400 Diastolic blood pressure 82 mm[Hg] Cornelia Lin PLYWOOD PATCHER.METALLURGICAL ENGINEERING TECHNICIAN Work Phone: [facility] 08-04-2022 13:58-0400 Heart rate 105 /min Cornelia Lin [employer]YWOOD PATCHER.METALLURGICAL ENGINEERING TECHNICIAN Work Phone: [facility] 08-04-2022 13:58-0400 Respiratory rate 18 /min Cornelia Lin [employer]YWOOD PATCHER.METALLURGICAL ENGINEERING TECHNICIAN Work Phone: [facility] 08-04-2022 13:58-0400 SaO2% (BldA) [Mass fraction] 97 % Cornelia Lin [employer]YWOOD PATCHER.METALLURGICAL ENGINEERING TECHNICIAN Work Phone: [facility] 08-04-2022 13:58-0400 Systolic blood pressure 144 mm[Hg] Cornelia Lin [employer]YWOOD PATCHER.METALLURGICAL ENGINEERING TECHNICIAN Work Phone: [facility] 07-23-2022 10:01-0400 Body temperature 98.8 [degF] Dinh Barksdale PLYWOOD PATCHER.METALLURGICAL ENGINEERING TECHNICIAN Work Phone: [facility] 07-23-2022 10:01-0400 Body weight 74.39 kg Dinh Barksdale [employer]YWOOD PATCHER.METALLURGICAL ENGINEERING TECHNICIAN Work Phone: [facility] 07-23-2022 10:01-0400 Diastolic blood pressure 80 mm[Hg] Dinh Lucioboydyessica [employer]YWOOD PATCHER.METALLURGICAL ENGINEERING TECHNICIAN Work Phone: [facility] 07-23-2022 10:01-0400 Heart rate 92 /min Dinh Shamir [employer]YWOOD PATCHER.METALLURGICAL ENGINEERING TECHNICIAN Work Phone: [facility] 07-23-2022 10:01-0400 Respiratory rate 16 /min Dinh Barksdale [employer]YWOOD PATCHER.METALLURGICAL ENGINEERING TECHNICIAN Work Phone: [facility] 07-23-2022 10:01-0400 SaO2% (BldA) [Mass fraction] 96 % Dinh Valdesboydyessica [employer]YWOOD PATCHER.METALLURGICAL ENGINEERING TECHNICIAN Work Phone: [facility] 07-23-2022 10:01-0400 Systolic blood pressure 138 mm[Hg] Dinh Barksdale [employer]WOOD PATCHER.METALLURGICAL ENGINEERING TECHNICIAN Work Phone: [facility] 03-29-2022 13:58-0400 Body temperature 98.01 [degF] Sharri Aj APRN.METALLURGICAL ENGINEERING TECHNICIAN Work Phone: [facility] 03-29-2022 13:58-0400 Body weight 71.58 kg Sharri Aj APRN.METALLURGICAL ENGINEERING TECHNICIAN Work Phone: [facility] 03-29-2022 13:58-0400 Diastolic blood pressure 74 mm[Hg] Sharri Aj APRN.METALLURGICAL ENGINEERING TECHNICIAN Work Phone: [facility] 03-29-2022 13:58-0400 Heart rate 90 /min Sharri Aj APRN.METALLURGICAL ENGINEERING TECHNICIAN Work Phone: [facility] 03-29-2022 13:58-0400 Respiratory rate 18 /min Sharri Aj APRN.METALLURGICAL ENGINEERING TECHNICIAN Work Phone: [facility] 03-29-2022 13:58-0400 SaO2% (BldA) [Mass fraction] 97 % Sharri Aj APRN.METALLURGICAL ENGINEERING TECHNICIAN Work Phone: [facility] 03-29-2022 13:58-0400 Systolic blood pressure 132 mm[Hg] Sharri Aj APRN.CNP Work Phone: [facility] 03-17-2022 11:01-0400 Body temperature 98.01 [degF] Kieran West MD Work Phone: [facility] 03-17-2022 11:01-0400 Body weight 71.94 kg Kieran West MD Work Phone: [facility] 03-17-2022 11:01-0400 Diastolic blood pressure 84 mm[Hg] Kieran West MD Work Phone: [facility] 03-17-2022 11:01-0400 Heart rate 76 /min Kieran West MD Work Phone: [facility] 03-17-2022 11:01-0400 Respiratory rate 18 /min Kieran West MD Work Phone: [facility] 03-17-2022 11:01-0400 SaO2% (BldA) [Mass fraction] 98 % Kieran West MD Work Phone: [facility] 03-17-2022 11:01-0400 Systolic blood pressure 142 mm[Hg] Kieran West MD Work Phone: [facility] Encounters Encounter Date Encounter Type Care Provider Facility Start: 07-10-2025 End: 07-10-2025 ambulatory BETY IGLESIAS Facility:[facility] Start: 04-30-2025 End: 05-08-2025 ambulatory Perry Bautista MD Work Phone: [facility] Comment on above: Benadryl and amitrip tyline Start: 04-29-2025 End: 04-29-2025 Patient encounter procedure Perry Bautista MD Work Phone: [facility] Comment on above: Postherpetic neuralg ia (Primary Dx); RUQ abdominal pain; Abnormal biliary HIDA scan; Calculus of gallbladder without cholecystitis without obstruction Start: 04-29-2025 End: 04-29-2025 ambulatory PERRY BAUTISTA Facility:[facility] Start: 04-27-2025 End: 04-28-2025 Refill Bety Iglesias MD Work Phone: Cardiology Comment on above: Refill Request Start: 03-25-2025 End: 04-02-2025 Follow-up encounter Fanta Trammell APRN.METALLURGICAL ENGINEERING TECHNICIAN Work Phone: [facility] Start: 03-24-2025 ambulatory [facility] Facility:[facility] Start: 03-24-2025 End: 03-24-2025 Subsequent hospital visit by physician [facility] Work Phone: [facility] Comment on above: Calculus of gallblad catherine without cholecystitis without obstruction [K80.20] Start: 03-04-2025 End: 03-05-2025 ambulatory [facility] Comment on above: My ultrasound result s Start: 02-25-2025 [facility] Facility:[facility] Start: 02-14-2025 End: 02-14-2025 Patient encounter procedure Fanta Trammell [employer] P[employer]ER.METALLURGICAL ENGINEERING TECHNICIAN Work Phone: [facility] Comment on above: Postherpetic neuralg ia (Primary Dx); Generalized abdominal pain; Other fatigue Start: 02-14-2025 End: 02-14-2025 [facility] Facility:[facility] Start: 02-13-2025 End: 02-13-2025 Office outpatient visit 15 minutes Dinh Barksdale APRN.METALLURGICAL ENGINEERING TECHNICIAN Work Phone: [facility] Comment on above: Abdominal pain, unsp ecified abdominal location (Primary Dx) Start: 02-13-2025 End: 02-13-2025 ambulatory DINH BARKSDALE Facility:[facility] Start: 02-13-2025 End: 02-13-2025 Follow-up encounter Dinh Barksdale APRN.METALLURGICAL ENGINEERING TECHNICIAN Work Phone: [facility] Start: 01-17-2025 End: 01-17-2025 Patient encounter procedure Ashlyn Keita APRN.METALLURGICAL ENGINEERING TECHNICIAN Work Phone: [facility] Comment on above: Postherpetic neuralg ia Start: 01-17-2025 End: 01-17-2025 ambulatory ASHLYN PODLOGAR Facility:[facility] Start: 01-06-2025 End: 01-06-2025 ambulatory [facility] Facility:[facility] Start: 01-06-2025 End: 01-06-2025 Office outpatient visit 15 minutes Wanda Hawkinss [employer] PATCHER.CORD MAKER Work Phone: [facility] [place] Comment on above: Herpes zoster withou t complication; Lack of appetite; Postherpetic neuralgia Start: 12-24-2024 End: 12-24-2024 Patient encounter procedure Regine Ivey [employer] PATCHER.METALLURGICAL ENGINEERING TECHNICIAN Work Phone: [facility] Comment on above: Herpes zoster withou t complication (Primary Dx); Bacterial sinusitis Start: 12-24-2024 End: 12-24-2024 ambulatory REGINE IVEY Facility:[facility] Start: 12-10-2024 End: 02-09-2025 Follow-up encounter Jill Mathur APRN.METALLURGICAL ENGINEERING TECHNICIAN Work Phone: [facility] Start: 12-09-2024 End: 12-09-2024 Office outpatient visit 25 minutes Dinh Barksdale PLYWOOD PATCHER.METALLURGICAL ENGINEERING TECHNICIAN Work Phone: [facility] Comment on above: Acute cough (Primary Dx); Viral illness; Diarrhea, unspecified type Start: 12-09-2024 End: 12-09-2024 ambulatory PERRY BAUTISTA Facility:[facility] Start: 12-09-2024 End: 12-09-2024 Subsequent hospital visit by physician Xr [facility] [place] Work Phone: Radiology Comment on above: Acute cough [R05.1] Start: 12-06-2024 End: 12-06-2024 ambulatory ASHLYN PODLOGAR Facility:[facility] Start: 12-06-2024 End: 12-06-2024 Subsequent hospital visit by physician Bone Density [facility] Work Phone: Radiology Comment on above: Osteoporosis, unspec ified osteoporosis type, unspecified pathological fracture presence [M81.0] Start: 11-28-2024 End: 11-30-2024 Follow-up encounter Perry Bautista MD Work Phone: [facility] [place] Start: 11-27-2024 End: 11-27-2024 ambulatory ASHLYN PODLOGAR Facility:[facility] Start: 11-18-2024 End: 11-18-2024 ambulatory BETY IGLESIAS Facility:[facility] Start: 11-18-2024 End: 11-18-2024 Patient encounter procedure Bety Iglesias MD Work Phone: Cardiology Comment on above: Nonrheumatic mitral valve regurgitation (Primary Dx); Palpitations Start: 11-13-2024 End: 11-13-2024 Telephone encounter Ashlyn Gundersonlogchloé PLYWOOD PATCHER.METALLURGICAL ENGINEERING TECHNICIAN Work Phone: [facility] [place] Comment on above: Results Start: 11-12-2024 End: 11-12-2024 Patient encounter procedure Ashlyn Podlogchloé PLYWOOD PATCHER.METALLURGICAL ENGINEERING TECHNICIAN Work Phone: [facility] [place] Comment on above: Medicare annual well ness visit, subsequent (Primary Dx); Osteoporosis, unspecified osteoporosis type, unspecified pathological fracture presence Start: 11-12-2024 End: 11-12-2024 ambulatory ASHLYN PODLOGAR Facility:[facility] Start: 11-11-2024 End: 11-11-2024 Telephone encounter Perry Bautista MD Work Phone: [facility] [place] Comment on above: Results Start: 11-08-2024 End: 11-08-2024 ambulatory PERRY BAUTISTA Facility:[facility] Start: 11-08-2024 End: 11-08-2024 Subsequent hospital visit by physician Screen Mammo [facility] Mammogram Comment on above: Encounter for screen ing mammogram for breast cancer [Z12.31] Start: 10-15-2024 End: 10-18-2024 ambulatory Perry Bautista MD Work Phone: Internal Medicine [facility] [place] Start: 10-15-2024 End: 10-15-2024 Telephone encounter Perry Bautista MD Work Phone: [facility] [place] Comment on above: Medication Request Start: 10-14-2024 End: 10-14-2024 Patient encounter procedure Rojas Kelly PLYWOOD PATCHER.METALLURGICAL ENGINEERING TECHNICIAN Work Phone: [facility] Comment on above: Nasal congestion (Pr imary Dx) Start: 10-14-2024 End: 10-14-2024 ambulatory PERRY BAUTISTA Facility:[facility] Start: 07-19-2024 End: 07-19-2024 ambulatory BETY IGLESIAS Facility:[facility] Start: 06-24-2024 End: 06-24-2024 ambulatory Katerine Rizo MD Work Phone: Allergy and Immunology [facility] Comment on above: Acute urticaria ([place] Dx) Start: 06-24-2024 End: 06-24-2024 Telemedicine consultation with patient Katerine Rizo MD Work Phone: Allergy and Immunology [facility] Start: 05-29-2024 End: 05-30-2024 Telephone encounter Priti Bowser MD Work Phone: General Surgery Comment on above: Results Start: 05-24-2024 Admission to same da y surgery center Priti Bowser MD Work Phone: General Surgery Comment on above: Thyroid Results Start: 05-24-2024 E-mail encounter fro m caregiver Priti Bowser MD Work Phone: General Surgery Start: 05-24-2024 Telephone encounter Priti Watts MD Work Phone: General Surgery Start: 05-21-2024 Telephone encounter Priti Watts MD Work Phone: General Surgery Comment on above: Results (Afirma resu lts) Start: 05-13-2024 End: 05-13-2024 Admission to same day surgery center Priti Bowser MD Work Phone: General Surgery Comment on above: 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) Start: 05-13-2024 End: 05-13-2024 Telemedicine consultation with patient Priti Bowser MD Work Phone: General Surgery Start: 05-07-2024 End: 05-07-2024 Patient encounter procedure Katerine Rizo MD Work Phone: Allergy Comment on above: Acute urticaria ([place] Dx) Start: 05-07-2024 End: 05-07-2024 Emergency department patient visit Charles Bautista Facility:[facility] Start: 05-06-2024 End: 05-06-2024 Patient encounter procedure Bety Iglesias MD Work Phone: Cardiology Comment on above: Nonrheumatic mitral valve regurgitation (Primary Dx); Palpitations Abnormal ultrasound of thyroid gland (Primary Dx) Start: 05-05-2024 Telephone encounter Andie BARRY Work Phone: [facility] Comment on above: Results Start: 05-04-2024 End: 05-04-2024 Patient encounter procedure Sharri Aj APRN.METALLURGICAL ENGINEERING TECHNICIAN Work Phone: [facility] Comment on above: Vaginal itching ([place] Dx); Hives Start: 04-30-2024 End: 04-30-2024 Patient encounter procedure Priti Bowser MD Work Phone: General Surgery Comment on above: Abnormal ultrasound of thyroid gland (Primary Dx); Multinodular goiter Start: 04-24-2024 Telephone encounter Charles Bautista MD Work Phone: [facility] Comment on above: Results Start: 04-19-2024 End: 04-19-2024 Subsequent hospital visit by physician [facility] Work Phone: Radiology Comment on above: Nodular thyroid dise ase [E04.1] Start: 03-30-2024 End: 03-30-2024 Patient encounter procedure Perry Bautista MD Work Phone: [facility] Comment on above: Sore throat (Primary Dx); Seasonal allergic rhinitis, unspecified trigger; Nodular thyroid disease; Heart murmur; Nonrheumatic mitral valve regurgitation Start: 03-29-2024 End: 03-29-2024 ambulatory Sheela Perez Facility:[facility] Start: 03-23-2024 End: 03-23-2024 Patient encounter procedure Regine Ivey APRN.METALLURGICAL ENGINEERING TECHNICIAN Work Phone: [facility] Comment on above: Sore throat (Primary Dx) Start: 12-07-2023 End: 12-07-2023 ambulatory PRITI HUANG ABBY Facility:[facility] Start: 11-22-2023 End: 11-22-2023 Subsequent hospital visit by physician Xr [facility] [place] Work Phone: Radiology Comment on above: Acute cough [R05.1] Start: 11-22-2023 End: 11-22-2023 Patient encounter procedure Alicia Jurado APRN.METALLURGICAL ENGINEERING TECHNICIAN Work Phone: [facility] Comment on above: Acute cough (Primary Dx); URI, acute; Acute otitis media, right Start: 11-14-2023 ambulatory [facility] Comment on above: Population Health Na vigation Outreach ([employer] care gaps/PCP field update) Start: 10-26-2023 End: 08-13-2024 Telephone encounter Freda Saab PA-C Work Phone: General Surgery Comment on above: 12/07/2023 COLON LODI Start: 09-14-2023 Documentation procedure Mammog andres Coordinator [facility] Start: 09-14-2023 Letter encounter Mammography Coordinator [facility] Start: 09-14-2023 Telephone encounter Ashlyn bonner APRN.METALLURGICAL ENGINEERING TECHNICIAN Work Phone: [facility] [place] Start: 09-13-2023 End: 09-13-2023 Subsequent hospital visit by physician Screen Mammo [facility] Mammogram Comment on above: Encounter for screen ing mammogram for breast cancer [Z12.31] Start: 07-27-2023 Telephone encounter Charles Bautista MD Work Phone: [facility] [place] Comment on above: Results Start: 07-18-2023 End: 07-18-2023 Patient encounter procedure Ashlyn Keita APRN.METALLURGICAL ENGINEERING TECHNICIAN Work Phone: [facility] [place] Comment on above: Encounter to [facility] (Primary Dx); Screening for colon cancer; Encounter for screening mammogram for breast cancer; Hyperlipidemia, mixed Start: 06-30-2023 End: 06-30-2023 Subsequent hospital visit by physician Xr [facility] [place] Work Phone: Radiology Comment on above: Chest pain, unspecif ied type [R07.9] Start: 06-30-2023 End: 06-30-2023 Patient encounter procedure Ashlyn Keita APRN.CNP Work Phone: [facility] [place] Comment on above: Chest pain, unspecif ied type (Primary Dx); Mitral valve insufficiency, unspecified etiology; Palpitations; Screening for hyperlipidemia; Fatigue, unspecified type Start: 04-20-2023 End: 04-20-2023 ambulatory [facility] Facility:[facility] Start: 04-20-2023 End: 04-20-2023 Patient encounter procedure Leonard Poe MD Work Phone: [facility] Comment on above: Spinal stenosis, lum bar region, without neurogenic claudication (Primary Dx); Spondylolisthesis of lumbar region; Lumbar radiculopathy; Lumbar spondylosis; Allergy history, anesthetic Start: 03-31-2023 ambulatory [facility] Comment on above: Population Health Na vigation Outreach ([employer] Care Gaps) Start: 03-14-2023 Telephone encounter Ashlyn bonner APRN.METALLURGICAL ENGINEERING TECHNICIAN Work Phone: [facility] Comment on above: Patient Update Start: 03-02-2023 End: 03-02-2023 Subsequent hospital visit by physician Mri Radio [facility] (I-Stat/1.5t) Work Phone: Radiology Comment on above: Spinal stenosis of l umbar region without neurogenic claudication [M48.061] Start: 02-02-2023 End: 02-02-2023 ambulatory [facility] Facility:[facility] Start: 01-20-2023 End: 01-20-2023 Subsequent hospital visit by physician Xr [facility] [place] Work Phone: Radiology Comment on above: Acute cough [R05.1] Start: 01-20-2023 End: 01-20-2023 Patient encounter procedure Alicia Jurado APRN.CNP Work Phone: [facility] Comment on above: Acute cough (Primary Dx); Rhinosinusitis Start: 12-02-2022 End: 12-02-2022 ambulatory Alicia O'Obie PT [facility] Comment on above: Lumbar pain (Primary Dx); Left hip pain Start: 11-29-2022 End: 11-29-2022 ambulatory Alicia O'Obie PT [facility] Comment on above: Lumbar pain (Primary Dx); Left hip pain Start: 11-25-2022 End: 11-25-2022 ambulatory Alicia O'Obie PT [facility] Comment on above: Lumbar pain (Primary Dx); Left hip pain Start: 11-22-2022 End: 11-22-2022 ambulatory Alicia O'Obie PT [facility] Comment on above: Lumbar pain (Primary Dx); Left hip pain Start: 11-18-2022 End: 11-18-2022 ambulatory Alicia O'Obie PT [facility] Comment on above: Lumbar pain (Primary Dx); Left hip pain Start: 11-17-2022 ambulatory No Pcp Paul urena Wheelwright Start: 11-17-2022 End: 11-17-2022 Patient encounter procedure Leonard Poe MD Work Phone: [facility] Comment on above: Lumbar spondylosis ( Primary Dx); Spondylolisthesis of lumbar region; Spinal stenosis, lumbar region, without neurogenic claudication Start: 11-15-2022 Telephone encounter sAhlyn bonner APRN.CNP Work Phone: [facility] Comment on above: Patient Question Start: 11-15-2022 End: 11-15-2022 ambulatory Alicia O'Obie PT [facility] Comment on above: Lumbar pain (Primary Dx); Left hip pain Start: 11-10-2022 End: 11-10-2022 ambulatory Brisa Kashuba MANAGER NICU Work Phone: [facility] Comment on above: Lumbar pain (Primary Dx); Left hip pain Start: 11-08-2022 End: 11-08-2022 ambulatory Brisa Kashuba MANAGER NICU Work Phone: [facility] Comment on above: Lumbar pain (Primary Dx); Left hip pain Start: 11-02-2022 End: 11-02-2022 ambulatory Alicia Ingram'Obie PT [facility] Comment on above: Lumbar pain (Primary Dx); Left hip pain Start: 11-01-2022 End: 11-01-2022 ambulatory Alicia Ingram'Obie PT [facility] Comment on above: Lumbar pain (Primary Dx); Left hip pain Start: 10-18-2022 Telephone encounter Ashlyn bonner APRN.CNP Work Phone: [facility] [place] Comment on above: Orders Start: 10-17-2022 End: 10-17-2022 Subsequent hospital visit by physician Xr [facility] [place] Work Phone: Radiology Comment on above: Left hip pain [M25.5 52] Start: 10-17-2022 End: 10-17-2022 Patient encounter procedure Ashlyn Keita APRN.CNP Work Phone: [facility] [place] Comment on above: Left hip pain (Prima ry Dx); Lumbar pain Start: 09-26-2022 End: 09-26-2022 Office outpatient visit 25 minutes Nuris Enriquez PA-C Work Phone: [facility] Comment on above: Left lumbar pain (Pr imary Dx) Start: 08-19-2022 Documentation procedure Mammog andres Coordinator [facility] Start: 08-19-2022 Letter encounter Mammography Coordinator [facility] Start: 08-19-2022 Telephone encounter Ashlyn bonner APRN.CNP Work Phone: [facility] Comment on above: Results Start: 08-18-2022 End: 08-18-2022 Subsequent hospital visit by physician Screen Mammo [facility] M[facility] Comment on above: Encounter for screen ing mammogram for breast cancer [Z12.31] Start: 08-11-2022 Telephone encounter Sharri Aj APRN.CNP Work Phone: [facility] Comment on above: Results Start: 08-04-2022 End: 08-04-2022 Patient encounter procedure Cornelia Khank PLYWOOD PATCHER.METALLURGICAL ENGINEERING TECHNICIAN Work Phone: [facility] Comment on above: Soreness of tongue ( Primary Dx) Start: 07-23-2022 End: 07-23-2022 Patient encounter procedure Dinh Barksdale APRN.METALLURGICAL ENGINEERING TECHNICIAN Work Phone: [facility] Comment on above: Bacterial sinusitis (Primary Dx) Start: 07-19-2022 End: 07-19-2022 ambulatory [facility] Work Phone: Start: 07-19-2022 End: 07-19-2022 Patient encounter procedure [facility] Start: 03-29-2022 End: 03-29-2022 Subsequent hospital visit by physician Xr [facility] Work Phone: Radiology Comment on above: Injury [T14.90XA] Start: 03-29-2022 End: 03-29-2022 Patient encounter procedure Sharri Aj PLYWOOD PATCHER.METALLURGICAL ENGINEERING TECHNICIAN Work Phone: [facility] Comment on above: Injury (Primary Dx) Start: 03-17-2022 End: 03-17-2022 Patient encounter procedure Kieran West MD Work Phone: [facility] Comment on above: Contact dermatitis a nd other eczema, due to unspecified cause (Primary Dx) Procedures Date Procedure Procedure Detail Performing Clinician Start: 03-24-2025 Hepatobil syst imag inc gb w/pharma intervenj Fanta Trammell PLYWOOD PATCHER.METALLURGICAL ENGINEERING TECHNICIAN Work Phone: Start: 12-09-2024 Radiologic exam ches t 2 views Dinh Barksdale PLYWOOD PATCHER.METALLURGICAL ENGINEERING TECHNICIAN Work Phone: Start: 11-12-2024 Lipid 1996 panel - S shavonne or Plasma Ashlyn Keita PLYWOOD PATCHER.METALLURGICAL ENGINEERING TECHNICIAN Work Phone: Start: 11-08-2024 Screening digital br east tomosynthesis bi Bulk Order Provider Start: 05-06-2024 US THYROID BIOPSY RI GHT (POC) SURG USE ONLY Priti Bowser MD Work Phone: Start: 11-22-2023 Radiologic exam ches t 2 views Alicia Jurado PLYWOOD PATCHER.METALLURGICAL ENGINEERING TECHNICIAN Work Phone: Start: 11-22-2023 COVID & INFLUENZA A/ B & RSV NAAT, ROUTINE Alicia Jurado PLYWOOD PATCHER.METALLURGICAL ENGINEERING TECHNICIAN Work Phone: Start: 06-30-2023 Radiologic exam ches t 2 views Ashlyn Podlogar PLYWOOD PATCHER.METALLURGICAL ENGINEERING TECHNICIAN Work Phone: Start: 06-30-2023 Lipid 1996 panel - S shavonne or Plasma Ashlyn Podlogar PLYWOOD PATCHER.METALLURGICAL ENGINEERING TECHNICIAN Work Phone: Start: 03-02-2023 Mri spinal canal lum bar w/o contrast material Leonard Poe MD Work Phone: Start: 01-20-2023 COVID WITH FLUA+B, ROUTINE Alicia Jurado PLYWOOD PATCHER.METALLURGICAL ENGINEERING TECHNICIAN Work Phone: Start: 01-20-2023 Radiologic exam ches t 2 views Alicia Jurado PLYWOOD PATCHER.METALLURGICAL ENGINEERING TECHNICIAN Work Phone: Start: 10-17-2022 Radex hip unilateral with pelvis 2-3 views Ashlyn Podlogar PLYWOOD PATCHER.METALLURGICAL ENGINEERING TECHNICIAN Work Phone: Start: 08-18-2022 TINO SCREENING W GIANLUCA Bu lk Order Provider Start: 08-18-2022 Mammography Ashlyn Podl ogar PLYWOOD PATCHER.METALLURGICAL ENGINEERING TECHNICIAN Work Phone: Start: 03-29-2022 Radex foot complete minimum 3 views Sharri Aj PLYWOOD PATCHER.METALLURGICAL ENGINEERING TECHNICIAN Work Phone: Start: 07-31-2020 Mammography Kieran gold MD Work Phone: Start: 10-16-2019 Lipid 1996 panel - S shavonne or Plasma Aslhyn Podlogar PLYWOOD PATCHER.METALLURGICAL ENGINEERING TECHNICIAN Work Phone: Start: 11-06-2017 Adult depression scr eening assessment Kieran West MD Work Phone: Start: 06-04-2008 Colonoscopy Kieran gold MD Work Phone: Urine culture Plan of Treatment Date Care Activity Detail Author Start: 11-12-2029 Lipid panel Lipid Screening [facility] Start: 09-04-2029 Urine microalbumin profile [facility] Start: 06-30-2028 Lipid 1996 panel - Serum or Plasma Lipid Screening [facility] Start: 06-30-2028 Lipid panel Lipid Screening [facility] Start: 02-14-2028 Diabetes Screening Diabetes Screening [facility] Start: 11-27-2027 Diabetes Screening Diabetes Screening [facility] Start: 11-12-2027 Diabetes Screening Diabetes Screening [facility] Start: 12-26-2026 RSV Vaccine (1 - 1-dose 75+ series) RSV Vaccine (1 - 1-dose 75+ series) [facility] Start: 12-06-2026 Screening for osteoporosis Bone Density Screening [facility] Start: 06-30-2026 Diabetes Screening Diabetes Screening [facility] Start: 11-12-2025 Covid-19 Vaccine ( season) Covid-19 Vaccine ( season) [facility] Comment on above: Postponed from 06/09/2024 (Declined at t his time) Start: 11-12-2025 RSV Vaccine (1 - Risk 60-74 years 1-dose series) RSV Vaccine (1 - Risk 60-74 years 1-dose series) [facility] Comment on above: Postponed from 2011 (Declined at t his time) Start: 11-12-2025 Shingrix Vaccine (1 of 2) Shingrix Vaccine (1 of 2) [facility] Comment on above: Postponed from 12/26/2001 (Declined at t his time) Start: 11-12-2025 End: 11-12-2025 Patient encounter procedure 11/12/2025 11:20 AM EST Office Visit [facility] [place] [address] [place] [address] PodAshlyn xie APRN.METALLURGICAL ENGINEERING TECHNICIAN [address] [place] [address] Medicare Wellness [facility] [place] Comment on above: Medicare Wellness Start: 11-08-2025 Screening for malignant neoplasm of breast Mammogram Screening [facility] Start: 08-11-2025 End: 08-11-2025 Patient encounter procedure 08/11/2025 10:20 AM EST Office Visit Cardiology [address] [place] [address] Bety Iglesias MD [address] [place] [address] 6 month follow up Cardiology Comment on above: 6 month follow up Start: 07-10-2025 End: 07-10-2025 Patient encounter procedure 07/10/2025 10:30 AM EDT Office Visit Cardiology [address] [place] [address] Nonrheumatic mitral valve regurgitation [I34.0] Cardiology Comment on above: Nonrheumatic mitral valve regurgitation [I34.0] Start: 07-09-2025 End: 11-18-2025 Echocardiography ECHO Cardiology Routine Nonrheumatic mitral valve regurgitation Expected: 07/09/2025, Expires: 11/18/2025 [facility] Work Phone: Comment on above: Expected: 07/09/2025, Expires: Start: 06-09-2025 Influenza vaccination [facility] Start: 04-29-2025 End: 04-29-2025 Patient encounter procedure 04/29/2025 9:00 AM EDT Office Visit [facility] [address] [place] [address] Perry Bautista MD [address] [place] [place] [address] Scan results [facility] Comment on above: Scan results Start: 04-24-2025 End: 05-24-2025 US Thyroid gland US THYROID/PARATHYROID Radiology Routine Nodular thyroid disease Expected: 04/24/2025, Expires: 05/24/2025 [facility] Comment on above: Expected: 04/24/2025, Expires: Start: 04-07-2025 [facility] above: [facility] from 06/09/2024 (Declined at t his time) Start: 02-25-2025 End: 02-25-2025 Patient encounter procedure 02/25/2025 7:45 AM EDT Appointment Radiology [address] [place] [address] Dx: Generalized abdominal pain [R10.84] Radiology Comment on above: Dx: Generalized abdominal pain [R10.84] Start: 02-14-2025 End: 02-14-2025 Patient encounter procedure 02/14/2025 1:40 PM EDT Office Visit [facility] [place] [address] [place] [address] Fanta Trammell APRN.METALLURGICAL ENGINEERING TECHNICIAN [address] [place] [address] URG CARE folllow up 02/13/25 [facility] [place] Comment on above: URG CARE folllow up 02/13/25 Start: 12-06-2024 End: 12-06-2024 Patient encounter procedure 12/06/2024 7:45 AM EST Appointment Radiology [address] [place] [id number] Osteoporosis, unspecified osteoporosis type, unspecified pathological fracture presence [M81.0] Radiology Comment on above: Osteoporosis, unspecified osteoporosis t ype, unspecified pathological fracture presence [M81.0] Start: 11-27-2024 End: 02-26-2025 Comprehensive metabolic 2000 panel - Serum or Plasma COMPREHENSIVE METABOLIC PANEL Lab Routine Hyperkalemia Hypercalcemia Expected: 11/27/2024, Expires: 02/26/2025 [facility] Work Phone: Comment on above: Expected: 11/27/2024, Expires: Start: 11-18-2024 End: 11-18-2024 Patient encounter procedure Cardiology Comment on above: 6 month follow up Start: 11-12-2024 End: 02-11-2025 CBC W Auto Differential panel - Blood [facility] Comment on above: Expected: 11/12/2024, Expires: Start: 11-12-2024 End: 02-11-2025 Comprehensive metabolic 2000 panel - Serum or Plasma [facility] Comment on above: Expected: 11/12/2024, Expires: Start: 11-12-2024 End: 02-11-2025 LIPID PANEL, NONFASTING [facility] Comment on above: Expected: 11/12/2024, Expires: Start: 11-12-2024 End: 11-12-2024 Patient encounter procedure 11/12/2024 11:00 AM EST Office Visit [facility] [place] [address] [place] [address] PodlogarAshlyn APRN.METALLURGICAL ENGINEERING TECHNICIAN [address] [place] [address] Wellness Visit/Coloscopy due LS [facility] [place] Comment on above: Wellness Visit/Coloscopy due LS Start: 10-16-2024 Lipid 1996 panel - Serum or Plasma Lipid Screening [facility] Start: 10-16-2024 LIPID SCREEN LIPID SCREEN [facility] Start: 10-09-2024 Advance Directive Discussion Advance Directive Discussion [facility] Start: 09-15-2024 DIABETES SCREEN DIABETES SCREEN [facility] Start: 09-15-2024 Diabetes Screening Diabetes Screening [facility] Start: 09-13-2024 Mammography Mammogram Screening [facility] Start: 09-13-2024 Screening for malignant neoplasm of breast Mammogram Screening [facility] Start: 07-19-2024 End: 07-19-2024 Patient encounter procedure [facility] [place] Comment on above: Wellness Visit/Coloscopy due LS Nonrheumatic mitral valve regurgitation [I34.0] Start: 07-09-2024 End: 05-06-2025 Echocardiography ECHO Cardiology Routine Nonrheumatic mitral valve regurgitation Palpitations Expected: 07/09/2024, Expires: 05/06/2025 [facility] Work Phone: Comment on above: Expected: 07/09/2024, Expires: Start: 06-24-2024 End: 06-24-2024 Follow-up encounter Allergy and [facility]olo [facility] Comment on above: 6 week follow up ?URTICARIA 6 week fo llow up Start: 06-09-2024 Covid-19 Vaccine () Covid-19 Vaccine () [facility] Start: 06-09-2024 Covid-19 Vaccine ( season) Covid-19 Vaccine ( season) [facility] Start: 06-09-2024 Influenza vaccination Influenza Vaccine (#1) [facility] Start: 05-20-2024 End: 05-20-2024 Patient encounter procedure 05/20/2024 1:40 PM EDT Office Visit [facility] [address] [facility] [place] [id number] Adenike Aj MD [address] [facility] [facility] [place] [address] Nodular thyroid disease [E04.1] Endocrinology Comment on above: Nodular thyroid disease [E04.1] Start: 05-13-2024 End: 05-13-2024 Follow-up encounter 05/13/2024 1:00 PM EDT [facility] General Surgery [address] [facility] [place], [place] [id number] Priti Bowser MD [address] [facility] [facility] [place] [id number] 1 wk follow up General Surgery Comment on above: 1 wk follow up Start: 05-07-2024 End: 05-07-2024 Patient encounter procedure 05/07/2024 2:30 PM EDT Office Visit Allergy [address] [place], [place] [id number] Katerine Rizo MD [address] [place] [phone] follow up Allergy Comment on above: follow up Start: 05-06-2024 End: 05-06-2024 Patient encounter procedure Cardiology Comment on above: 6 month follow up US gudied FNA- Rt th yroid nodule US guided FNA of rig ht thyroid nodule Start: 04-30-2024 End: 04-30-2024 Patient encounter procedure 04/30/2024 9:30 AM EDT Office Visit General Surgery [address] [place], [place] [phone] Priti Bowser MD [address] [place] [id number] Nodular thyroid disease [E04.1] General Surgery Comment on above: Nodular thyroid disease [E04.1] Start: 04-25-2024 End: 04-25-2024 ambulatory 04/25/2024 10:30 AM EDT Results Only [facility] Draw Station [address] [place] [place] [address] [facility] Draw Station Start: 04-24-2024 End: 07-24-2024 Thyrotropin [Units/volume] in Serum or Plasma THYROID STIMULATING HORMONE Lab Routine Nodular thyroid disease Expected: 04/24/2024, Expires: 07/24/2024 [facility] Work Phone: Comment on above: Expected: 04/24/2024, Expires: Start: 04-24-2024 End: 07-24-2024 Thyroxine (T4) free [Mass/volume] in Serum or Plasma T4 FREE/FREE THYROXINE Lab Routine Nodular thyroid disease Expected: 04/24/2024, Expires: 07/24/2024 [facility] Comment on above: Expected: 04/24/2024, Expires: Start: 04-24-2024 End: 07-24-2024 Triiodothyronine (T3) [Mass/volume] in Serum or Plasma T3 Lab Routine Nodular thyroid disease Expected: 04/24/2024, Expires: 07/24/2024 [facility] Comment on above: Expected: 04/24/2024, Expires: 4 Start: 04-19-2024 End: 04-19-2024 Patient encounter procedure 04/19/2024 1:45 PM EDT Appointment Radiology [address] [place] [id number] US THYROID/PARATHYROID Radiology Comment on above: US THYROID/PARATHYROID Start: 11-27-2023 Covid-19 Vaccine () Covid-19 Vaccine () [facility] Start: 10-09-2023 Advance Directive Discussion Advance Directive Discussion [facility] Start: 10-09-2023 Behavioral Health Screening Behavioral Health Screening [facility] Start: 10-09-2023 Depression Assessment Depression Assessment [facility] Start: 08-18-2023 COLOGUARD (FIT-DNA) COLOGUARD (FIT-DNA) [facility] Start: 08-18-2023 Mammography [facility] Start: 08-18-2023 Screening for malignant neoplasm of colon [facility] (FIT-DNA) [facility] Start: 06-30-2023 End: 08-30-2023 Comprehensive metabolic 2000 panel - Serum or Plasma [facility] Work Phone: Comment on above: Expected: 06/30/2023, Expires: 3 Start: 06-30-2023 End: 08-30-2023 LIPID PANEL, NONFASTING [facility] Work Phone: Comment on above: Expected: 06/30/2023, Expires: 3 Start: 06-30-2023 End: 08-30-2023 Magnesium [Mass/volume] in Serum or Plasma [facility] Work Phone: Comment on above: Expected: 06/30/2023, Expires: 3 Start: 06-30-2023 End: 08-30-2023 Thyrotropin [Units/volume] in Serum or Plasma [facility] Work Phone: Comment on above: Expected: 06/30/2023, Expires: 3 Start: 06-09-2023 Covid-19 Vaccine () Covid-19 Vaccine () [facility] Start: 06-09-2023 Influenza vaccination [facility] Start: 10-09-2022 ADVANCE DIRECTIVE DISCUSSION ADVANCE DIRECTIVE DISCUSSION [facility] Start: 10-09-2022 DEPRESSION ASSESSMENT DEPRESSION ASSESSMENT [facility] Start: 08-04-2022 End: 10-04-2022 Fungus identified in Unspecified specimen by Culture FUNGAL SCREEN Microbiology Routine Soreness of tongue Expected: 08/04/2022, Expires: 10/04/2022 [facility] Work Phone: Comment on above: Expected: 08/04/2022, Expires: 2 Start: 06-09-2022 Influenza vaccination [facility] Start: 10-09-2021 ADVANCE DIRECTIVE DISCUSSION ADVANCE DIRECTIVE DISCUSSION [facility] Start: 10-09-2021 DEPRESSION ASSESSMENT DEPRESSION ASSESSMENT [facility] Start: 07-31-2021 Mammography MAMMOGRAM [facility] Start: 06-02-2021 COVID-19 VACCINE (3 - Booster for Pfizer series) COVID-19 VACCINE (3 - Booster for Pfizer series) [facility] Start: 02-25-2021 COVID-19 VACCINE (3 - Booster for Pfizer series) COVID-19 VACCINE (3 - Booster for Pfizer series) [facility] Start: 02-25-2021 COVID-19 VACCINE (3 - Pfizer series) COVID-19 VACCINE (3 - Pfizer series) [facility] Start: 08-19-2020 COLORECTAL CANCER SCREENING COLORECTAL CANCER SCREENING [facility] Start: 08-19-2020 Screening for malignant neoplasm of colon Colorectal Cancer Screening [facility] Start: 11-06-2018 Adult depression screening assessment DEPRESSION SCREENING [facility] Start: 06-04-2018 Colonoscopy COLONOSCOPY [facility] Start: 06-04-2018 Screening for malignant neoplasm of colon Colonoscopy [facility] Start: 12-26-2016 Pneumococcal Vaccine: 65+ (1 - PCV) Pneumococcal Vaccine: 65+ (1 - PCV) [facility] Start: 12-26-2016 Pneumococcal Vaccine: 65+ (1 of 1 - PCV) Pneumococcal Vaccine: 65+ (1 of 1 - PCV) [facility] Start: 12-26-2016 PNEUMOCOCCAL: 65+ (1 - PCV) PNEUMOCOCCAL: 65+ (1 - PCV) [facility] Start: 12-26-2016 Screening for osteoporosis Bone Density Screening [facility] Start: 2011 RSV Vaccine (1 - 1-dose 60+ series) RSV Vaccine (1 - 1-dose 60+ series) [facility] Start: 2011 RSV Vaccine (1 - Risk 60-74 years 1-dose series) RSV Vaccine (1 - Risk 60-74 years 1-dose series) [facility] Start: 12-26-2001 Pneumococcal Vaccine: 50+ (1 of 1 - PCV) Pneumococcal Vaccine: 50+ (1 of 1 - PCV) [facility] Start: 12-26-2001 SHINGRIX VACCINE (1 of 2) SHINGRIX VACCINE (1 of 2) [facility] Start: 12-26-[address] COLONOGRAPHY [facility] Start: 12-26-1996 FECAL OCCULT BLOOD FECAL OCCULT BLOOD [facility] Start: 12-26-1996 Screening for malignant neoplasm of colon [facility] Start: 12-26-1996 SIGMOIDOSCOPY SIGMOIDOSCOPY [facility] Start: 12-26-1969 Anxiety Screening Anxiety Screening [facility] Start: 12-26-1969 Depression Screening Depression Screening [facility] BACTERIAL VAGINOSIS NAAT BACTERI AL VAGINOSIS NAAT Lab Routine Vaginal itching Ordered: 05/04/2024 [facility] Comment on above: Ordered: 05/04/2024 STACEY/TRICHOMONAS NAAT STACEY /TRICHOMONAS NAAT Lab Routine Vaginal itching Ordered: 05/04/2024 [facility] Work Phone: Comment on above: Ordered: 05/04/2024 Clostridioides diffi cile toxin genes [Presence] in Stool by REA with probe detection CLOSTRIDIUM DIFFICILE TOXIN BY PCR Lab Routine Diarrhea, unspecified type Ordered: 12/09/2024 [facility] Comment on above: Ordered: 12/09/2024 COVID & INFLUENZA A/ B & RSV PCR, ROUTINE COVID & INFLUENZA A/B & RSV PCR, ROUTINE Microbiology Routine Nasal congestion 10/14/2024 4:14 PM EST [facility] Work Phone: COVID & INFLUENZA A/ B & RSV PCR, ROUTINE COVID & INFLUENZA A/B & RSV PCR, ROUTINE Microbiology Routine Viral illness Ordered: 12/09/2024 [facility] Comment on above: Ordered: 12/09/2024 CYTOLOGY NON-CONTRACT LEAD CYTOLOGY NON-GY N Lab Routine Abnormal ultrasound of thyroid gland 05/06/2024 3:37 PM EDT [facility] Work Phone: End: 11-14-2025 DBT Breast - bilateral screening TINO SCREENING W GIANLUCA Radiology Routine Encounter for screening mammogram for breast cancer 1 Occurrences starting 10/15/2024 until 11/14/2025 [facility] Work Phone: Comment on above: 1 Occurrences starting 10/15/2024 until 11/14/2025 End: 12-12-2025 DXA Skeletal system.axial Views for bone density DXA-AXIAL SKELETON Radiology Routine Osteoporosis, unspecified osteoporosis type, unspecified pathological fracture presence 1 Occurrences starting 11/12/2024 until 12/12/2025 [facility] Work Phone: Comment on above: 1 Occurrences starting 11/12/2024 until 12/12/2025 DXA Skeletal system. axial Views for bone density DXA-AXIAL SKELETON Radiology Routine Osteoporosis, unspecified osteoporosis type, unspecified pathological fracture presence 12/06/2024 8:13 AM EST [facility] Work Phone: End: 06-30-2024 ECG COMPLETE ECG COMPLETE ECG Routine Chest pain, unspecified type 1 Occurrences starting 06/30/2023 until 06/30/2024 [facility] Work Phone: Comment on above: 1 Occurrences starting 06/30/2023 until 06/30/2024 End: 06-30-2024 Echocardiography ECHO Cardiology Routine Chest pain, unspecified type Mitral valve insufficiency, unspecified etiology 1 Occurrences starting 06/30/2023 until 06/30/2024 [facility] Work Phone: Comment on above: 1 Occurrences starting 06/30/2023 until 06/30/2024 ENTERIC BACTERIAL PA NOEMÍ BY PCR ENTERIC BACTERIAL PANEL BY PCR Lab Routine Diarrhea, unspecified type Ordered: 12/09/2024 [facility] Comment on above: Ordered: 12/09/2024 End: 06-30-2024 EXERCISE STRESS ECG (WITHOUT IMAGING) EXERCISE STRESS ECG (WITHOUT IMAGING) Cardiology Routine Chest pain, unspecified type 1 Occurrences starting 06/30/2023 until 06/30/2024 [facility] Work Phone: Comment on above: 1 Occurrences starting 06/30/2023 until 06/30/2024 End: 08-16-2024 TINO SCREENING TINO SCREENING Radiology Routine Encounter for screening mammogram for breast cancer 1 Occurrences starting 07/18/2023 until 08/16/2024 [facility] Work Phone: Comment on above: 1 Occurrences starting 07/18/2023 until 08/16/2024 TINO SCREENING TINO SCREENING Radiology Routine Encounter for screening mammogram for breast cancer 09/13/2023 11:15 AM EST [facility] Work Phone: Ova and parasites identified in Unspecified specimen by Light microscopy OVA + PARA MICROSCOPIC Microbiology Routine Diarrhea, unspecified type Ordered: 12/09/2024 [facility] Work Phone: Comment on above: Ordered: 12/09/2024 PT PLAN OF CARE CERTIFICATION PT PLAN OF CARE CERTIFICATION Procedures Routine Lumbar pain Left hip pain Ordered: 11/15/2022 [facility] Comment on above: Ordered: 11/15/2022 End: 11-16-2023 Radex spine lumbosacral 2/3 views XR LUMBAR GENERAL 3V AP/LAT/L5-S1 Radiology Routine Lumbar pain 1 Occurrences starting 10/17/2022 until 11/16/2023 [facility] Work Phone: Comment on above: 1 Occurrences starting 10/17/2022 until 11/16/2023 Radex spine lumbosac ral 2/3 views XR LUMBAR GENERAL 3V AP/LAT/L5-S1 Radiology Routine Lumbar pain 10/17/2022 3:40 PM EST [facility] Work Phone: End: 07-29-2024 Radiologic exam chest 2 views XR CHEST 2V FRONTAL/LAT Radiology Routine Chest pain, unspecified type 1 Occurrences starting 06/30/2023 until 07/29/2024 [facility] Work Phone: Comment on above: 1 Occurrences starting 06/30/2023 until 07/29/2024 Radiologic exam ches t 2 views XR CHEST 2V FRONTAL/LAT Radiology Routine Chest pain, unspecified type 06/30/2023 11:37 AM EDT [facility] Work Phone: End: 10-26-2024 Screening colonoscopy COLONOSCOPY SCREENING Endoscopy Routine Encounter for screening for malignant neoplasm of colon 1 Occurrences starting 10/26/2023 until 10/26/2024 [facility] Work Phone: Comment on above: 1 Occurrences starting 10/26/2023 until 10/26/2024 Screening colonoscopy COLONOSCOP Y SCREENING Endoscopy Routine Encounter for screening for malignant neoplasm of colon 12/07/2023 9:58 AM EST [facility] STREP A MOLECULAR (POC) STREP A MOLECULAR (POC) Microbiology Routine Sore throat Ordered: 03/23/2024 [facility] Work Phone: Comment on above: Ordered: 03/23/2024 End: 03-16-2026 US Abdomen RUQ US ABD RIGHT UPPER QUADRANT Radiology Routine Generalized abdominal pain 1 Occurrences starting 02/14/2025 until 03/16/2026 [facility] Work Phone: Comment on above: 1 Occurrences starting 02/14/2025 until 03/16/2026 End: 04-29-2025 US Thyroid gland US THYROID/PARATHYROID Radiology Routine Nodular thyroid disease 1 Occurrences starting 03/30/2024 until 04/29/2025 [facility] Work Phone: Comment on above: 1 Occurrences starting 03/30/2024 until 04/29/2025 US Thyroid gland US THYROID/PARA THYROID Radiology Routine Nodular thyroid disease 04/19/2024 2:31 PM EDT [facility] Work Phone: End: 11-16-2023 XR HIP GENERAL 3V PELV/AP/LAT LEFT XR HIP GENERAL 3V PELV/AP/LAT LEFT Radiology Routine Left hip pain 1 Occurrences starting 10/17/2022 until 11/16/2023 [facility] Work Phone: Comment on above: 1 Occurrences starting 10/17/2022 until 11/16/2023 XR HIP GENERAL 3V PELV/AP/LAT LEFT XR HIP GENERAL 3V PELV/AP/LAT LEFT Radiology Routine Left hip pain 10/17/2022 3:40 PM EST [facility] Work Phone: [facility] Immunizations Immunization Date Immunization Notes Care Provider Shabbir louis 09-13-2023 influenza (HD-IIV4) vaccine, age 65+ yr, high dose, quadrivalent, PF (FLUZONE HIGH-DOSE) Mammography Coordinator [facility] 09-13-2023 influenza virus vaccine, unspecified formulation Us 1 Work Phone: [facility] 07-27-2023 COVID-19 vaccine, ag e 12+ yr, 2022- season (MODERNA) Screen Wstr [facility] 12-31-2020 Covid (Pfizer) [facility] Work Phone: 12-10-2020 Covid (Pfizer) [facility] Work Phone: 07-20-2020 influenza virus vaccine, unspecified formulation Kieran West MD Work Phone: [facility] 09-04-2019 tetanus toxoid, reduced diphtheria toxoid, and acellular pertussis vaccine, adsorbed Kieran West MD Work Phone: [facility] 08-05-2019 influenza, high dose seasonal, preservative-free Kieran West MD Work Phone: [facility] Work Phone: 08-16-2018 influenza, high dose seasonal, preservative-free Kieran West MD Work Phone: [facility] Work Phone: Payers Date Payer Category Payer Self-pay [id number] 2021 Medicare AETNA MEDICARE A ETNA MEDICARE PPO [id number] 2021-Present [phone] [address] [place] [address] PPO [id number] 2021 Medicare AETNA MEDICARE A ETNA MEDICARE PPO [id number] 2021-Present [phone] [address] [place] [address] PPO [id number] 2021 Medicare (Managed Care) [employer] [place] [id number] 2021 Private Health Insurance 101 [id number] Medicare MEDICARE PART A B [id number] Unknown KRISTYN [id number] Unknown [id number] Unknown [id number] Social History Date Type Detail Facility Start: 07-23-2022 Tobacco smoking status NHIS Never smoked tobacco [facility] Start: 03-17-2022 End: 02-14-2025 Alcohol intake Current drinker of alcohol (finding) [facility] Start: 1950 Sex Assigned At Not on file [facility] Start: 03-07-2022 End: 08-18-2022 Exposure to SARS-CoV-2 (event) Not sure [facility] Start: 07-23-2022 Tobacco use and exposure Smokeless tobacco non-user [facility] Start: 12-03-2020 Tobacco smoking status NHIS Unknown if ever smoked [facility] Work Phone: Start: 12-03-2020 Spouse/ Significant Other [facility] Work Phone: Start: 1950 Sex Assigned At Female [facility] Work Phone: Start: 03-17-2023 End: 04-20-2023 History of Social function [facility] Start: 03-17-2023 End: 04-20-2023 Tobacco use panel [facility] Adult Depression Screening Assessment 0 [facility] Has the Human Demand, or water Shuame threatened to shut off services in your home in past 12Mo No [facility] Do you belong to any clubs or organizations such as religion groups, unions, [employer] or athletic groups, or school groups? Yes [facility] Are you now , , , , never or living with a partner? [facility] How often to you hav e a drink containing alcohol? Monthly or less [facility] How many standard dr inks containing alcohol do you have on a typical day? 1 or 2 [facility] How often do you hav e 6 or more drinks on 1 occasion? Never [facility] Do you feel stress - tense, restless, nervous, or anxious, or unable to sleep at night because your mind is troubled all the time - these days [OSQ] Only a little [facility] (I/We) worried jeannie er (my/our) food would run out before (I/we) got money to buy more. Never true [facility] Functional Status Date Assessment Result Facility 03-18-2015 Are you deaf, or do you have serious difficulty hearing No 03/18/2015 11:16 AM Una Dalton Ma [facility] 03-18-2015 Are you blind, or do you have serious difficulty seeing, even when wearing glasses No 03/18/2015 11:16 AM Una Dalton Ma [facility] 03-18-2015 Do you have serious difficulty walking or climbing stairs No 03/18/2015 11:16 AM Una Dalton Ma [facility] 03-18-2015 Do you have difficul ty dressing or bathing No 03/18/2015 11:16 AM Una Dalton Ma [facility] 03-18-2015 Because of a physica l, mental, or emotional condition, do you have difficulty doing errands alone such as visiting a physician's office or shopping No 03/18/2015 11:16 AM Una Dalton Ma [facility] Mental Status Date Assessment Result Facility 03-18-2015 Because of a physica l, mental, or emotional condition, do you have serious difficulty concentrating, remembering, or making decisions No 03/18/2015 11:16 AM EDT Una Dahl Ma [facility] Clinical Notes 03-17-2022 to 06-25-2025 Telephone Encounter - Perry Bautista MD - 05/08/2025 12:34 PM EDTTelephone Encounter - Perry Bautista MD - 05/08/2025 12:34 PM EDTPatient InstructionsPatient Instructions Note Date & Type Note Facility 06-25-2025 Note HNO ID: [id number] Author: ?, ?, ? Service: ? Author Type: ? Type: Progress Notes Filed: 06/25/2025 14:48 Note Text: POPULATION HEALTH NAVIGATION OUTREACH Action/ - HCC Colon: Overdue since 08/19/2020 Flu: Due for dose 1 since 06/09/2025 Tino: Due soon on 11/08/2025 ----- Called Patient: Unable to leave message, [employer] Sent Updated appt notes to address HCC/Care Gap Reason for Outreach Care Gap/HCC or Scheduling Wellness Visits Care Gaps due: Breast Cancer Screening Colorectal Cancer Screening Flu Vaccine Patient Contacted: Unable or unnecessary to reach patient: Unable to leave message [employer] message sent Updated appointment notes Navigation Signature: Wilber Sarmiento June 25, 2025 2:45 PM [facility] 06-25-2025 Note Patient Outreach (JUAN TNAV) LAURYN BANG ([id number]) 1950 F Date Time Provider Department 06/25/25 PERRY BAUTISTA During your visit today, we recorded the following information about you: Wilber Sarmiento 06/25/2025 2:48 PM Signed POPULATION HEALTH NAVIGATION OUTREACH Action/I - 0 HCC Colon: Overdue since 08/19/2020 Flu: Due for dose 1 since 06/09/2025 Tino: Due soon on 11/08/2025 ----- Called Patient: Unable to leave message, [employer] Sent Updated appt notes to address HCC/Care Gap Reason for Outreach Care Gap/HCC or Scheduling Wellness Visits Care Gaps due: Breast Cancer Screening Colorectal Cancer Screening Flu Vaccine Patient Contacted: Unable or unnecessary to reach patient: Unable to leave message [employer] message sent Updated appointment notes Navigation Signature: Wilber Sarmiento June 25, 2025 2:45 PM Allergies As of Date: 06/25/2025 Noted Allergy Reaction MARCAINE-EPINEPHRINE (BUPIVACAINE*07/11/2023 12 - Shortness of Breath 18 - Angioedema Comments: Tolerates Lidocaine/Epinephrine AMITRIPTYLINE 05/08/2025 14 - Other: See Comments Comments: Dry eyes, mouth AUGMENTIN (AMOXICILLIN-POT CLAVUL*06/20/2005 6 - Diarrhea BACTRIM (SULFAMETHOXAZOLE) 12/13/2012 8 - GI Upset DOXYCYCLINE 02/25/2015 2 - Rash ERYTHROMYCIN 03/31/2008 Comments: unknown MELOXICAM SUBMICRONIZED 11/17/2022 8 - GI Upset OMEPRAZOLE 04/29/2025 14 - Other: See Comments Comments: Dry eyes, dry mouth PROLIA (DENOSUMAB) 11/12/2024 16 - Unknown Comments: Leg aching CIELODEC (BROMPHENIRAMINE-PSEUDOEPH*2007 16 - Unknown Comments: Date Reviewed: 04/29/2025 Reviewed by: Doreen Avery MA - Fully Assessed Reason for Visit: Population Health Navigation Outreach [3910] Cmt: Houston Zamorano Prescriptions as of 06/25/2025 - DULoxetine DR (CYMBALTA) 30 mg capsule Take 1 capsule by mouth once daily. - metoprolol succinate ER (TOPROL XL) 25 mg 24 hr tablet TAKE 1 TABLET BY MOUTH EVERY DAY - ascorbic acid, vitamin C, (VITAMIN C) 500 mg tablet Take 500 mg by mouth once daily. - CRANBERRY ORAL Take by mouth. - multivitamin ORAL tablet Take 1 tablet by mouth once daily. Problem List As Of Date 06/25/2025 Noted Resolved BENIGN NEOPLASM LG BOWEL [D12.6] 06/04/2008 Chronic interstitial cystitis [N30.10] 06/26/2009 Osteoporosis [M81.0] 04/01/2010 Heart murmur [R01.1] 10/20/2010 Nontoxic multinodular goiter [E04.2] 10/20/2010 Eczematous dermatitis [L30.9] 04/21/2012 Contact dermatitis and other eczema, due to uns*04/21/2012 Pruritus [L29.9] 04/21/2012 Urticaria [L50.9] 04/21/2012 Rash and other nonspecific skin eruption [R21] 04/21/2012 05/07/2024 Ganglion cyst [M67.40] 03/11/2019 Enlarged thyroid gland [E04.9] 10/10/2019 Multiple thyroid nodules [E04.2] 10/10/2019 Lumbar pain [M54.50] 10/21/2022 Left hip pain [M25.552] 10/21/2022 Palpitations [R00.2] 07/03/2023 Nonrheumatic mitral valve regurgitation [I34.0] 07/03/2023 Other chest pain [R07.89] 07/03/2023 Encounter for screening for malignant neoplasm *12/07/2023 Encounter Status:Closed by WILBER SARMIENTO on 06/25/25 [facility] 05-14-2025 Note HNO ID: [id number] Author: REGINE KAPOOR MA Service: ? Author Type: Induction Coordination Engineer Type: Progress Notes Filed: 05/14/2025 12:42 Note Text: POPULATION HEALTH NAVIGATION OUTREACH Action/05.14.25 Appointments/HM Care gaps to address: ~Colorectal cancer screening ~Screening mammogram due 11/09/25 or after Outcome: ~Left voicemail with my direct number and sent [employer] message Reason for Outreach Care Gap/HCC or Scheduling Wellness Visits Care Gaps due: Breast Cancer Screening Colorectal Cancer Screening Patient Contacted: Unable or unnecessary to reach patient: Left message MyChart message sent Navigation Signature: Regine Kapoor MA May 14, 2025 12:33 PM [facility] 05-14-2025 Note Patient Outreach (NE TNAV) LAURYN BANG ([id number]) 1950 F Date Time Provider Department 05/14/25 REGINE KAPOOR During your visit today, we recorded the following information about you: Regine Kapoor MA 05/14/2025 12:42 PM Signed POPULATION HEALTH NAVIGATION OUTREACH Action/05.14.25 Appointments/HM Care gaps to address: ~Colorectal cancer screening ~Screening mammogram due 11/09/25 or after Outcome: ~Left voicemail with my direct number and sent [employer] message Reason for Outreach Care Gap/HCC or Scheduling Wellness Visits Care Gaps due: Breast Cancer Screening Colorectal Cancer Screening Patient Contacted: Unable or unnecessary to reach patient: Left message [employer] message sent Navigation Signature: Regine Kapoor MA May 14, 2025 12:33 PM Allergies As of Date: 05/14/2025 Noted Allergy Reaction MARCAINE-EPINEPHRINE (BUPIVACAINE*07/11/2023 12 - Shortness of Breath 18 - Angioedema Comments: Tolerates Lidocaine/Epinephrine AMITRIPTYLINE 05/08/2025 14 - Other: See Comments Comments: Dry eyes, mouth AUGMENTIN (AMOXICILLIN-POT CLAVUL*06/20/2005 6 - Diarrhea BACTRIM (SULFAMETHOXAZOLE) 12/13/2012 8 - GI Upset DOXYCYCLINE 02/25/2015 2 - Rash ERYTHROMYCIN 03/31/2008 Comments: unknown MELOXICAM SUBMICRONIZED 11/17/2022 8 - GI Upset OMEPRAZOLE 04/29/2025 14 - Other: See Comments Comments: Dry eyes, dry mouth PROLIA (DENOSUMAB) 11/12/2024 16 - Unknown Comments: Leg aching RONDEC (BROMPHENIRAMINE-PSEUDOEPH*2007 16 - Unknown Comments: Date Reviewed: 04/29/2025 Reviewed by: Doreen Avery MA - Fully Assessed Reason for Visit: Population Health Navigation Outreach [3910] Cmt: Louistoddya Jaqueline Bermudezain Prescriptions as of 05/14/2025 - DULoxetine DR (CYMBALTA) 30 mg capsule Take 1 capsule by mouth once daily. - metoprolol succinate ER (TOPROL XL) 25 mg 24 hr tablet TAKE 1 TABLET BY MOUTH EVERY DAY - ascorbic acid, vitamin C, (VITAMIN C) 500 mg tablet Take 500 mg by mouth once daily. - CRANBERRY ORAL Take by mouth. - multivitamin ORAL tablet Take 1 tablet by mouth once daily. Problem List As Of Date 05/14/2025 Noted Resolved BENIGN NEOPLASM LG BOWEL [D12.6] 06/04/2008 Chronic interstitial cystitis [N30.10] 06/26/2009 Osteoporosis [M81.0] 04/01/2010 Heart murmur [R01.1] 10/20/2010 Nontoxic multinodular goiter [E04.2] 10/20/2010 Eczematous dermatitis [L30.9] 04/21/2012 Contact dermatitis and other eczema, due to uns*04/21/2012 Pruritus [L29.9] 04/21/2012 Urticaria [L50.9] 04/21/2012 Rash and other nonspecific skin eruption [R21] 04/21/2012 05/07/2024 Ganglion cyst [M67.40] 03/11/2019 Enlarged thyroid gland [E04.9] 10/10/2019 Multiple thyroid nodules [E04.2] 10/10/2019 Lumbar pain [M54.50] 10/21/2022 Left hip pain [M25.552] 10/21/2022 Palpitations [R00.2] 07/03/2023 Nonrheumatic mitral valve regurgitation [I34.0] 07/03/2023 Other chest pain [R07.89] 07/03/2023 Encounter for screening for malignant neoplasm *12/07/2023 Encounter Status:Closed by REGINE KAPOOR on 05/14/25 [facility] 05-08-2025 Telephone encounter Note Rx sent. Please have patient update our office in about 2 weeks on her pain. [facility] 05-08-2025 Miscellaneous Notes Rx sent. Please have patient update our office in about 2 weeks on her pain. Please see pt reply Dee Blackwell MA If she is having constant side effects from the medication I would recommend stopping the Amitriptyline. She was not able to tolerate Gabapentin for her pain related to shingles. We could try a dose of Cymbalta at 30 mg daily to help with pain. This is an anti depressant which we use often for chronic pain. Side effects would possibly be fatigue, trouble sleeping, dry mouth, stomach upset, and in extremely rare cases thoughts of self harm. All of these side effects are rare. Any interest in trying this new medication for her pain? documented in this encounter [facility] 05-08-2025 Telephone encounter Note Please see pt reply Dee Blackwell MA [facility] 05-08-2025 Telephone encounter Note If she is having constant side effects from the medication I would recommend stopping the Amitriptyline. She was not able to tolerate Gabapentin for her pain related to shingles. We could try a dose of Cymbalta at 30 mg daily to help with pain. This is an anti depressant which we use often for chronic pain. Side effects would possibly be fatigue, trouble sleeping, dry mouth, stomach upset, and in extremely rare cases thoughts of self harm. All of these side effects are rare. Any interest in trying this new medication for her pain? [facility] 04-29-2025 Instructions Perry Bautista MD - 04/29/2025 9:32 AM EDT - Begin amitriptyline 10 mg by mouth at bedtime each night; prescription has been sent to [facility] in [place]. - After one week on amitriptyline, call the office to report how you re tolerating it and whether your abdominal pain is improving. - If you experience increased drowsiness, dry mouth or eyes, nausea, vomiting, upset stomach, or diarrhea, contact the clinic promptly. - Continue to avoid omeprazole since you had severe dehydration and dryness with it. - No further gallbladder surgery or additional imaging/lab tests are needed at this time. documented in this encounter [facility] 04-29-2025 Note HNO ID: [id number] Author: PERRY BAUTISTA MD Service: ? Author Type: Physician Type: Progress Notes Filed: 04/29/2025 09:33 Note Text: Chief Complaint Patient presents with: Follow Up: Discuss results Recording using [employer] software for draft documentation of the visit was discussed with the patient/authorized dairy supplies sales representative; all questions welcomed and answered. Patient/authorized dairy supplies sales representative agreed to proceed HPI Lauryn Bang is a 74 year old female who presents here today for Above Complaints. Chronic Abdominal Pain: - Persistent abdominal pain since December, initially preceding a shingles outbreak by two days. - Pain described as a stabbing sensation, localized to the RUQ, with occasional radiation to the back. - Recent episode of sharp pain extending under the ribs, triggered by standing at the sink. - Pain is worse in the morning and with prolonged standing; not constant but frequently present. - Described as a pressing and sharp sensation, rated 3/10 currently and 4/10 upon waking. - Aggravated by standing and talking; not consistently relieved by any specific measures. - Associated with deep burping at night, not typical of her usual heartburn. - Takes Tums prophylactically at night to prevent heartburn. - Denies nausea, emesis, diarrhea, hematochezia, melena, dysuria, hematuria, or abnormal vaginal bleeding/discharge. - No relief from gabapentin, which caused drowsiness and constipation. - No known trauma or injury to the area. - Denies consumption of fatty foods. Shingles: - Shingles outbreak in December, with pain beginning two days prior to the rash. - Rash still causes burning and itching; pain from shingles has decreased but not resolved. - Pain from shingles believed to be related to current abdominal pain. HIDA Scan: - Recent HIDA scan showed a hyperactive gallbladder with an ejection fraction of 90%. - Ultrasound revealed benign liver cysts and gallstones without inflammation; spleen appeared normal. - Blood tests ordered by Dinh Barksdale were normal, including checks for pancreatitis, blood counts, and kidney/liver function. Medication Intolerance: - Experienced severe dehydration with omeprazole, leading to discontinuation after one dose. - No issues with Prilosec in the past. Past medical history, appointments, medications, allergies reviewed. Previous Medical History PAST MEDICAL HISTORY Diagnosis Date Acid reflux Benign neoplasm of colon Diaphragmatic hernia without mention of obstruction or gangrene takes tums Frequent UTI Dr. 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 Multiple thyroid nodules Pneumonia, viral Post herpetic neuralgia 01/17/2025 Shingles Symptomatic menopausal or female climacteric states hot flashes, night sweats Previous Surgical History PAST SURGICAL HISTORY Procedure Laterality Date COLSC FLX W/RMVL OF TUMOR POLYP LESION SNARE TQ 06/04/2008 EXC LESION TDN SHTH/JT CAPSL HAND/FNGR Left 03/20/2019 Excision of left thumb ganglion cyst THYROID RIGHT FINE NEEDLE ASPIRATION Right 05/06/2024 UNSPECIFIED ORAL SURGERY PROCEDURE, BY REPORT [place] teeth extracted UNSPECIFIED ORAL SURGERY PROCEDURE, BY REPORT 12/2016 tooth extracted VAGINAL HYSTERECTOMY UTERUS 250 GM/< 07/29/2008 Hysterectomy, vaginal w/ cystocele repair, removed one ovary Family History FAMILY HISTORY Problem Relation Age of Onset Breast Cancer Mother CHF age of breast cancer 60's Breast Cancer Sister late 50's, Cancer Sister BRAIN age 70 Breast Cancer Maternal Grandmother Patient Allergies ALLERGIES Allergen Reactions Marcaine-Epinephrin* Shortness of Breath, Angioedema Tolerates Lidocaine/Epinephrine Augmentin [Amoxicil* Diarrhea Bactrim [Sulfametho* GI Upset Doxycycline Rash Erythromycin unknown Meloxicam Submicron* GI Upset Omeprazole Other: See Comments Dry eyes, dry mouth Prolia [Denosumab] Unknown Leg aching Rondec [Bromphenira* Unknown Current Medications Current Outpatient Medications on File Prior to Visit Medication Sig metoprolol succinate ER (TOPROL XL) 25 mg 24 hr tablet TAKE 1 TABLET BY MOUTH EVERY DAY omeprazole (PRILOSEC) 40 mg capsule Take 1 capsule by mouth once daily. ascorbic acid, vitamin C, (VITAMIN C) 500 mg tablet Take 500 mg by mouth once daily. CRANBERRY ORAL Take by mouth. multivitamin ORAL tablet Take 1 tablet by mouth once daily. No current facility-administered medications on file prior to visit. Social History Social History Tobacco Use Smoking status: Never Smokeless tobacco: Never Vaping Use Vaping status: Never Used Substance Use Topics Alcohol use: Yes Comment: Seldom Drug use: No Review of Symptoms REVIEW OF SYSTEMS See HPI EXAM: BP 130/76 Pulse 64 Wt 70.3 kg (155 lb) BMI 28.35 kg/m? General Appearan (more content not included)... [facility] 04-29-2025 History of Present illness Narrative Chief Complaint Patient presents with: Follow Up: Discuss results Recording using [employer] software for draft documentation of the visit was discussed with the patient/authorized dairy supplies sales representative; all questions welcomed and answered. Patient/authorized dairy supplies sales representative agreed to proceed HPI Lauryn Bang is a 74 year old female who presents here today for Above Complaints. Chronic Abdominal Pain: - Persistent abdominal pain since December, initially preceding a shingles outbreak by two days. - Pain described as a stabbing sensation, localized to the RUQ, with occasional radiation to the back. - Recent episode of sharp pain extending under the ribs, triggered by standing at the sink. - Pain is worse in the morning and with prolonged standing; not constant but frequently present. - Described as a pressing and sharp sensation, rated 3/10 currently and 4/10 upon waking. - Aggravated by standing and talking; not consistently relieved by any specific measures. - Associated with deep burping at night, not typical of her usual heartburn. - Takes Tums prophylactically at night to prevent heartburn. - Denies nausea, emesis, diarrhea, hematochezia, melena, dysuria, hematuria, or abnormal vaginal bleeding/discharge. - No relief from gabapentin, which caused drowsiness and constipation. - No known trauma or injury to the area. - Denies consumption of fatty foods. Shingles: - Shingles outbreak in December, with pain beginning two days prior to the rash. - Rash still causes burning and itching; pain from shingles has decreased but not resolved. - Pain from shingles believed to be related to current abdominal pain. HIDA Scan: - Recent HIDA scan showed a hyperactive gallbladder with an ejection fraction of 90%. - Ultrasound revealed benign liver cysts and gallstones without inflammation; spleen appeared normal. - Blood tests ordered by Dinh Barksdale were normal, including checks for pancreatitis, blood counts, and kidney/liver function. Medication Intolerance: - Experienced severe dehydration with omeprazole, leading to discontinuation after one dose. - No issues with Prilosec in the past. Past medical history, appointments, medications, allergies reviewed. Previous Medical History PAST MEDICAL HISTORY Diagnosis Date Acid reflux Benign neoplasm of colon Diaphragmatic hernia without mention of obstruction or gangrene takes tums Frequent UTI Dr. 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 Multiple thyroid nodules Pneumonia, viral Post herpetic neuralgia 01/17/2025 Shingles Symptomatic menopausal or female climacteric states hot flashes, night sweats Previous Surgical History PAST SURGICAL HISTORY Procedure Laterality Date COLSC FLX W/RMVL OF TUMOR POLYP LESION SNARE TQ 06/04/2008 EXC LESION TDN SHTH/JT CAPSL HAND/FNGR Left 03/20/2019 Excision of left thumb ganglion cyst THYROID RIGHT FINE NEEDLE ASPIRATION Right 05/06/2024 UNSPECIFIED ORAL SURGERY PROCEDURE, BY REPORT [place] teeth extracted UNSPECIFIED ORAL SURGERY PROCEDURE, BY REPORT 12/2016 tooth extracted VAGINAL HYSTERECTOMY UTERUS 250 GM/< 07/29/2008 Hysterectomy, vaginal w/ cystocele repair, removed one ovary Family History FAMILY HISTORY Problem Relation Age of Onset Breast Cancer Mother CHF age of breast cancer 60's Breast Cancer Sister late 50's, Cancer Sister BRAIN age 70 Breast Cancer Maternal Grandmother Patient Allergies ALLERGIES Allergen Reactions Marcaine-Epinephrin* Shortness of Breath, Angioedema Tolerates Lidocaine/Epinephrine Augmentin [Amoxicil* Diarrhea Bactrim [Sulfametho* GI Upset Doxycycline Rash Erythromycin unknown Meloxicam Submicron* GI Upset Omeprazole Other: See Comments Dry eyes, dry mouth Prolia [Denosumab] Unknown Leg aching Rondec [Bromphenira* Unknown Current Medications Current Outpatient Medications on File Prior to Visit Medication Sig metoprolol succinate ER (TOPROL XL) 25 mg 24 hr tablet TAKE 1 TABLET BY MOUTH EVERY DAY omeprazole (PRILOSEC) 40 mg capsule Take 1 capsule by mouth once daily. ascorbic acid, vitamin C, (VITAMIN C) 500 mg tablet Take 500 mg by mouth once daily. CRANBERRY ORAL Take by mouth. multivitamin ORAL tablet Take 1 tablet by mouth once daily. No current facility-administered medications on file prior to visit. Social History Social History Tobacco Use Smoking status: Never Smokeless tobacco: Never Vaping Use Vaping status: Never Used Substance Use Topics Alcohol use: Yes Comment: Seldom Drug use: No Review of Symptoms REVIEW OF SYSTEMS See HPI EXAM: BP 130/76 Pulse 64 Wt 70.3 kg (155 lb) BMI 28.35 kg/m General Appearance: Well appearing, alert, in no acute distress, well-hydrated, well nourished.. Skin: Skin color, texture, turgor normal, no suspicious rashes or lesions. Lungs: Lungs clear to auscultation. No wheezing, rhonchi, rales.. Heart: RRR without murmur, gallop, or rubs. No ectopy. Abdomen: Abdomen soft. Bowel sounds normal. No masses, organomegaly, Negative CVA tenderness, Positive findings: tenderness mild RUQ without guarding or rebound. Negative carter's. Pain reproduces shingles pain. Health Maintenance List Depression Screening Never done Anxiety Screening Never done Pneumococcal Vaccine: 50+(1 of 1 - PCV) Never done Colorectal Cancer Screening due on 08/19/2020 Advance Directive Discussion Never done Shingrix Vaccine(1 of 2) due on 11/12/2025 Covid-19 Vaccine( - season) due on 11/12/2025 Influenza Vaccine(1) due on 06/09/2025 Mammogram Screening due on 11/08/2025 Bone Density Screening due on 12/06/2026 RSV Vaccine(1 - 1-dose 75+ series) due on 12/26/2026 Diabetes Screening due on 02/14/2028 DTaP,Tdap,Td Vaccine(2 - Td or Tdap) due on 09/04/2029 Lipid Screening due on 11/12/2029 Medicare Advantage Annual Wellness Visit Completed Hepatitis C Screening Completed Data reviewed Latest Ref Rng 11/12/2024 11/27/2024 02/13/2025 WBC 3.70 - 11.00 k/uL 5.49 5.57 RBC 3.90 - 5.20 m/uL 4.79 4.67 Hemoglobin 11.5 - 15.5 g/dL 14.0 13.9 Hematocrit 36.0 - 46.0 % 45.0 42.9 MCV 80.0 - 100.0 fL 93.9 91.9 MCH 26.0 - 34.0 pg 29.2 29.8 MCHC 30.5 - 36.0 g/dL 31.1 32.4 RDW-CV 11.5 - 15.0 % 13.7 14.4 Platelet Count 150 - 400 k/uL 176 197 MPV 9.0 - 12.7 fL 11.9 11.6 Neut% % 47.3 46.8 Abs Neut (ANC) 1.45 - 7.50 k/uL 2.60 2.61 Lymph% % 41.9 41.3 Abs Lymph 1.00 - 4.00 k/uL 2.30 2.30 [place]% % 6.6 7.7 Abs [place] <0.87 k/uL 0.36 0.43 Eosin% % 3.5 3.1 Abs Eosin <0.46 k/uL 0.19 0.17 Baso% % 0.5 0.7 Abs Baso <0.11 k/uL 0.03 0.04 Immature Gran % % 0.2 0.4 IMMATURE GRANS (ABS) <0.10 k/uL <0.03 <0.03 NRBC /100 WBC 0.0 0.0 Absolute nRBC <0.01 k/uL <0.01 <0.01 DTYPE Auto Auto Protein, Total 6.3 - 8.0 g/dL 7.3 7.3 7.2 Albumin 3.9 - 4.9 g/dL 4.3 4.3 4.3 Calcium 8.5 - 10.2 mg/dL 10.5 (H) 10.3 (H) 9.9 Bilirubin, Total 0.2 - 1.3 mg/dL 0.4 0.4 0.3 Alkaline Phosphatase 34 - 123 U/L 88 87 86 AST 13 - 35 U/L 26 26 23 ALT 7 - 38 U/L 19 18 21 Glucose 74 - 99 mg/dL 83 77 88 BUN 7 - 21 mg/dL 15 15 16 Creatinine 0.58 - 0.96 mg/dL 1.00 (H) 0.88 0.80 Sodium 136 - 144 mmol/L 140 140 137 Potassium 3.7 - 5.1 mmol/L 5.3 (H) 4.9 4.5 Chloride 98 - 107 mmol/L 103 104 101 CO2 22 - 30 mmol/L 28 29 30 Anion Gap 8 - 15 mmol/L 9 7 (L) 6 (L) eGFR >=60 mL/min/1.73m 60 70 78 Total Cholesterol, Nonfasting <200 mg/dL 175 Triglycerides, Nonfasting <150 mg/dL 93 HDL Cholesterol, Nonfasting >39 mg/dL 54 LDL Cholesterol Calculated, Nonfasting <100 mg/dL 102 (H) Non HDL Cholesterol, Nonfasting <130 mg/dL 121 VLDL Cholesterol, Nonfasting <30 mg/dL 19 Total Chol/HDL Ratio, Nonfasting <5.10 mg/dL 3.24 LDL/HDL Ratio, Nonfasting <2.54 mg/dL 1.89 Lipase 16 - 61 U/L 22 Legend: (H) High (L) Low 1. Postherpetic neuralgia (B02.29) 2. RUQ abdominal pain (R10.11) - RUQ abdominal pain began two days prior to shingles outbreak and has persisted; described as a pressing and sharp pain, rated 3-4/10, worse in the morning and with prolonged standing. - Pain is not constant and is not associated with nausea, vomiting, diarrhea, or urinary symptoms. - Previous treatment with gabapentin was ineffective and caused drowsiness and constipation. - Physical exam reveals tenderness in the area corresponding to the shingles rash; no tenderness in the back or with deep palpation. - Discussed that postherpetic neuralgia can cause long-term pain and is likely the cause of the current symptoms. - Initiated amitriptyline 10 mg orally at bedtime; discussed potential side effects including drowsiness, dry mouth, nausea, and vomiting. - Patient to report back in one week to assess effectiveness; dosage may be increased to 25 mg if necessary. 3. Abnormal biliary HIDA scan (R94.8) 4. Calculus of gallbladder without cholecystitis without obstruction (K80.20) - RUQ ultrasound showed benign liver cysts, gallstones without signs of inflammation, and a normal spleen. - HIDA scan revealed a hyperkinetic gallbladder with an ejection fraction of 90%; common bile duct was patent. - Blood work including CBC, kidney, and liver function tests were normal. - Discussed that hyperactive gallbladder is unlikely to be the cause of the pain, as it is not typical for the symptoms described. - No further testing or surgical intervention is indicated at this time. - Patient understands and agrees with the treatment plan. Perry Bautista MD documented in this encounter [facility] 04-28-2025 Telephone encounter Note Pharmacy electronically requests the following refill(s) Requested Prescriptions Pending Prescriptions Disp Refills metoprolol succinate ER (TOPROL XL) 25 mg 24 hr tablet [Pharmacy Med Name: METOPROLOL SUCC ER 25 MG TAB] 90 tablet 3 Sig: TAKE 1 TABLET BY MOUTH EVERY DAY Octavia Kim RN [facility] 04-28-2025 Miscellaneous Notes Pharmacy electronically requests the following refill(s) Requested Prescriptions Pending Prescriptions Disp Refills metoprolol succinate ER (TOPROL XL) 25 mg 24 hr tablet [Pharmacy Med Name: METOPROLOL SUCC ER 25 MG TAB] 90 tablet 3 Sig: TAKE 1 TABLET BY MOUTH EVERY DAY Octavia Kim RN documented in this encounter [facility] 03-26-2025 Telephone encounter Note I am not sure what she means about other options beside surgery for her abdominal pain. Recommend OV if symptoms are persistent. Please assist with scheduling. I have openings tomorrow morning. [facility] Work Phone: 03-26-2025 Miscellaneous Notes I am not sure what she means about other options beside surgery for her abdominal pain. Recommend OV if symptoms are persistent. Please assist with scheduling. I have openings tomorrow morning. documented in this encounter [facility] 03-24-2025 History of Present illness Narrative RADIOLOGY SERVICE PROGRESS NOTE SERVICE DATE: 03/24/2025 SERVICE TIME: 12:35 PM PATIENT IDENTITY VERIFICATION COMPLETED USING TWO (2) STANDARD IDENTIFIERS: Name and Date of confirmed by patient verbally FALL SCREENING: Has the patient had 2 falls in the last year or 1 fall with injury or currently using an Ambulatory Assistive Device (Walker, Cane, Wheelchair, Crutches, etc.)? No PATIENT GENDER DATA: .female : No ALLERGIES: Reviewed and unchanged MEDICATIONS REVIEWED: No PATIENT RELEVANT IMPLANT DATA REVIEWED: Not Applicable PATIENT PRESENTS WITH AN IMPLANTABLE OR ATTACHED FLANGER: n/a CREATININE: Creatinine Date Value Ref Range Status 02/13/2025 0.80 0.58 - 0.96 mg/dL Final 11/27/2024 0.88 0.58 - 0.96 mg/dL Final 11/12/2024 1.00 (H) 0.58 - 0.96 mg/dL Final Estimated Glomerular Filtration Rate Date Value Ref Range Status 02/13/2025 78 >=60 mL/min/1.73m Final Comment: Estimated Glomerular Filtration Rate (eGFR) is calculated using the 2020 CKD-EPI creatinine equation. This equation utilizes serum creatinine, sex, and age as parameters. The creatinine assay has traceable calibration to isotope dilution-mass spectrometry. Refer to KDIGO guidelines for clinical interpretation. In patients with unstable renal function, e.g. those with acute kidney injury, the eGFR may not accurately reflect actual GFR. eGFR- Date Value Ref Range Status 09/15/2021 >60 Final P.O.C.T. RESULTS: N/A March 24, [address] PERFORMED: No IV SITE: Ambulatory: A peripheral IV was started in the Left antecubital site with a Angio cath: 24 gauge. POST EXAM PIV STATUS: Discontinued PROCEDURE TYPE: NM INJECT: Hepatobiliary with Gallbladder EF. 5.7 mCi Tc99m CHOLETEC. Administered By: Tish Minaya . CCK 1.42 micrograms intravenous at 14:10 PM. PATIENT DISCHARGED TO: Ambulatory patient, left DC department area. Is this a therapy: No A Diagnostic radioactive procedure has taken place, with no further precautions necessary other than routine body substance precautions. More information regarding radiation safety can be found using this link: [email or web address] SIGNATURE: KRISTEL Wolf) PATIENT NAME: Lauryn Bang DATE: March 24, 2025 TIME: 3:02 PM PAGER/CONTACT #: documented in this encounter [facility] 03-24-2025 Note HNO ID: [id number] Author: TISH MINAYA RT (R) Service: Nuclear Medicine Author Type: Technologist Type: Progress Notes Filed: 03/24/2025 15:04 Note Text: RADIOLOGY SERVICE PROGRESS NOTE SERVICE DATE: 03/24/2025 SERVICE TIME: 12:35 PM PATIENT IDENTITY VERIFICATION COMPLETED USING TWO (2) STANDARD IDENTIFIERS: Name and Date of confirmed by patient verbally FALL SCREENING: Has the patient had 2 falls in the last year or 1 fall with injury or currently using an Ambulatory Assistive Device (Walker, Cane, Wheelchair, Crutches, etc.)? No PATIENT GENDER DATA: .female : No ALLERGIES: Reviewed and unchanged MEDICATIONS REVIEWED: No PATIENT RELEVANT IMPLANT DATA REVIEWED: Not Applicable PATIENT PRESENTS WITH AN IMPLANTABLE OR ATTACHED FLANGER: n/a CREATININE: Creatinine Date Value Ref Range Status 02/13/2025 0.80 0.58 - 0.96 mg/dL Final 11/27/2024 0.88 0.58 - 0.96 mg/dL Final 11/12/2024 1.00 (H) 0.58 - 0.96 mg/dL Final Estimated Glomerular Filtration Rate Date Value Ref Range Status 02/13/2025 78 >=60 mL/min/1.73m? Final Comment: Estimated Glomerular Filtration Rate (eGFR) is calculated using the 2020 CKD-EPI creatinine equation. This equation utilizes serum creatinine, sex, and age as parameters. The creatinine assay has traceable calibration to isotope dilution-mass spectrometry. Refer to KDIGO guidelines for clinical interpretation. In patients with unstable renal function, e.g. those with acute kidney injury, the eGFR may not accurately reflect actual GFR. eGFR- Date Value Ref Range Status 09/15/2021 >60 Final P.O.C.T. RESULTS: N/A March 24, [address] PERFORMED: No IV SITE: Ambulatory: A peripheral IV was started in the Left antecubital site with a Angio cath: 24 gauge. POST EXAM PIV STATUS: Discontinued PROCEDURE TYPE: NM INJECT: Hepatobiliary with Gallbladder EF. 5.7 mCi Tc99m CHOLETEC. Administered By: Tish Minaya . CCK 1.42 micrograms intravenous at 14:10 PM. PATIENT DISCHARGED TO: Ambulatory patient, left DC department area. Is this a therapy: No A Diagnostic radioactive procedure has taken place, with no further precautions necessary other than routine body substance precautions. More information regarding radiation safety can be found using this link: [email or web address] SIGNATURE: RT Maryann(Gonzalez) PATIENT NAME: Lauryn Bang DATE: March 24, 2025 TIME: 3:02 PM PAGER/CONTACT #: [facility] 02-25-2025 Note HNO ID: [id number] Author: ALICIA POLANCO RDMS Service: ? Author Type: Equipment Sterilizer Type: Progress Notes Filed: 02/26/2025 11:43 Note Text: Radiology Service Progress Note PATIENT NAME: Lauryn Bang DATE OF SERVICE: February 26, 2025 TIME: 11:43 AM PATIENT IDENTITY VERIFICATION COMPLETED USING TWO (2) IDENTIFIERS: Name and Date of confirmed by patient verbally. FALL SCREENING: Has the patient had 2 falls in the last year or 1 fall with injury or currently using an Ambulatory Assistive Device (Walker, Cane, Wheelchair, Crutches, etc.)? No PATIENT GENDER DATA: Assigned female at . status: : No status: NO. PATIENT RELEVANT IMPLANT DATA REVIEWED: Not Applicable PATIENT PRESENTS WITH AN IMPLANTABLE OR ATTACHED FLANGER: No RADIOLOGY DEPARTMENT: Ultrasound PERIPHERAL IV DATA: Not applicable SIGNED BY: Alicia Polanco RDMS RVT February 26, 2025 11:43 AM [facility] 02-14-2025 Note HNO ID: [id number] Author: FANTA TRAMMELL APRN.METALLURGICAL ENGINEERING TECHNICIAN Service: ? Author Type: Nurse Practitioner Type: Progress Notes Filed: 02/14/2025 14:11 Note Text: SUBJECTIVE Lauryn Bang is a 74 year old female here today for a check up on her medical problems. Chief Complaint Patient presents with: Pain: upper right abdomen on going since 12/20/24 when she had shingles. Was seen in Urgent Care on 02/13/25 and was recommend that she see primary as they had nothing else to offer for her. CIRO Gunn is a 74-year-old female presenting for follow-up after being seen in express care yesterday for abdominal pain. Velia reports a 2-month history of right upper, middle, and lower abdominal discomfort that began around 12/20 or 12/21, coinciding with the onset of shingles. The pain has been persistent and is exacerbated by certain movements. She describes three types of pain: a constant pressure-like sensation, intermittent sharp stabbing pain, and a squeezing ache that occurs with walking, resembling muscle strain. She denies performing any physical activities that could cause such strain. She also reports deep burping, distinct from her usual heartburn, and significant fatigue, feeling totally wiped out despite sleeping well at night. She denies nausea, emesis, or changes in bowel habits. Her appetite has improved after a period of decline due to shingles and multiple preceding illnesses, including the flu, norovirus, and an upper respiratory infection since 10/10. Velia has been taking gabapentin and metoprolol at night. She recently reduced her gabapentin dose from 400 mg to 200 mg at night due to concerns about constipation, which has since improved. She attributes her fatigue to both her recent illnesses and extreme stress related to her daughter's colorectal cancer treatment and her bxoftk-oq-pft's hospitalizations. Her medications were reviewed today and her list is now up to date. Medications Current Outpatient Medications Medication Sig gabapentin (NEURONTIN) 100 mg capsule Take two tablets at bedtime omeprazole (PRILOSEC) 20 mg capsule Take 20 mg by mouth once daily. ascorbic acid, vitamin C, (VITAMIN C) 500 mg tablet Take 500 mg by mouth once daily. metoprolol succinate ER (TOPROL XL) 25 mg 24 hr tablet Take 1 tablet by mouth once daily. CRANBERRY ORAL Take by mouth. multivitamin ORAL tablet Take 1 tablet by mouth once daily. No current facility-administered medications for this visit. ALLERGIES Allergen Reactions Marcaine-Epinephrin* Shortness of Breath, Angioedema Tolerates Lidocaine/Epinephrine Augmentin [Amoxicil* Diarrhea Bactrim [Sulfametho* GI Upset Doxycycline Rash Erythromycin unknown Meloxicam Submicron* GI Upset Prolia [Denosumab] Unknown Leg aching Rondec [Bromphenira* Unknown ACTIVE PROBLEM LIST Encounter for Screening for Malignant Neoplasm of Colon - 12/07/2023 Palpitations - 07/03/2023 Nonrheumatic Mitral Valve Regurgitation - 07/03/2023 Other Chest Pain - 07/03/2023 Lumbar Pain - 10/21/2022 Left Hip Pain - 10/21/2022 Enlarged Thyroid Gland - 10/10/2019 Multiple Thyroid Nodules - 10/10/2019 Ganglion Cyst - 03/11/2019 Eczematous Dermatitis - 04/21/2012 Contact Dermatitis and Other Eczema, Due to Unspecified Cause - 04/21/2012 Pruritus - 04/21/2012 Urticaria - 04/21/2012 Heart Murmur - 10/20/2010 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 Chronic Interstitial Cystitis - 06/26/2009 Benign Neoplasm of Colon - 06/04/2008 Social History Tobacco Use Smoking status: Never Smokeless tobacco: Never Vaping Use Vaping status: Never Used Substance Use Topics Alcohol use: Yes Comment: Seldom Drug use: No Constitutional: (+) fatigue Gastrointestinal: (+) right upper abdominal pain, (+) belching, (-) nausea, (-) vomiting, (-) bowel habit changes Neurological: (+) sciatica, (+) neuralgia (shingles-related) Psychiatric: (+) stress OBJECTIVE BP 124/72 Pulse 97 Wt 156 lb 8.4 oz (71.0kg) SpO2 96% Physical Exam Vitals and nursing note reviewed. Constitutional: General: She is awake. She is not in acute distress. Appearance: Normal appearance. She is well-developed and well-groomed. She is not ill-appearing, toxic-appearing or diaphoretic. HENT: Head: Normocephalic. Right Ear: External ear normal. Left Ear: External ear normal. Nose: Nose normal. Eyes: General: Vision grossly intact. Conjunctiva/sclera: Conjunctivae normal. Pupils: Pupils are equal, round, and reactive to light. Neck: Vascular: No JVD. Trachea: Trachea normal. Pulmonary: Effort: Pulmonary effort is normal. No accessory muscle usage, prolonged expiration or respiratory distress. Musculoskeletal: Cervical back: Neck supple. Skin: General: Skin is warm and dry. Capillary Refill: Capillary refill takes less than 2 seconds. Neurolo (more content not included)... [facility] 02-14-2025 History of Present illness Narrative SUBJECTIVE Lauryn Bang is a 74 year old female here today for a check up on her medical problems. Chief Complaint Patient presents with: Pain: upper right abdomen on going since 12/20/24 when she had shingles. Was seen in Urgent Care on 02/13/25 and was recommend that she see primary as they had nothing else to offer for her. CIRO Gunn is a 74-year-old female presenting for follow-up after being seen in express care yesterday for abdominal pain. Velia reports a 2-month history of right upper, middle, and lower abdominal discomfort that began around 12/20 or 12/21, coinciding with the onset of shingles. The pain has been persistent and is exacerbated by certain movements. She describes three types of pain: a constant pressure-like sensation, intermittent sharp stabbing pain, and a squeezing ache that occurs with walking, resembling muscle strain. She denies performing any physical activities that could cause such strain. She also reports deep burping, distinct from her usual heartburn, and significant fatigue, feeling totally wiped out despite sleeping well at night. She denies nausea, emesis, or changes in bowel habits. Her appetite has improved after a period of decline due to shingles and multiple preceding illnesses, including the flu, norovirus, and an upper respiratory infection since 10/10. Velia has been taking gabapentin and metoprolol at night. She recently reduced her gabapentin dose from 400 mg to 200 mg at night due to concerns about constipation, which has since improved. She attributes her fatigue to both her recent illnesses and extreme stress related to her daughter's colorectal cancer treatment and her kzrkdx-ch-lte's hospitalizations. Her medications were reviewed today and her list is now up to date. Medications Current Outpatient Medications Medication Sig gabapentin (NEURONTIN) 100 mg capsule Take two tablets at bedtime omeprazole (PRILOSEC) 20 mg capsule Take 20 mg by mouth once daily. ascorbic acid, vitamin C, (VITAMIN C) 500 mg tablet Take 500 mg by mouth once daily. metoprolol succinate ER (TOPROL XL) 25 mg 24 hr tablet Take 1 tablet by mouth once daily. CRANBERRY ORAL Take by mouth. multivitamin ORAL tablet Take 1 tablet by mouth once daily. No current facility-administered medications for this visit. ALLERGIES Allergen Reactions Marcaine-Epinephrin* Shortness of Breath, Angioedema Tolerates Lidocaine/Epinephrine Augmentin [Amoxicil* Diarrhea Bactrim [Sulfametho* GI Upset Doxycycline Rash Erythromycin unknown Meloxicam Submicron* GI Upset Prolia [Denosumab] Unknown Leg aching Rondec [Bromphenira* Unknown ACTIVE PROBLEM LIST Encounter for Screening for Malignant Neoplasm of Colon - 12/07/2023 Palpitations - 07/03/2023 Nonrheumatic Mitral Valve Regurgitation - 07/03/2023 Other Chest Pain - 07/03/2023 Lumbar Pain - 10/21/2022 Left Hip Pain - 10/21/2022 Enlarged Thyroid Gland - 10/10/2019 Multiple Thyroid Nodules - 10/10/2019 Ganglion Cyst - 03/11/2019 Eczematous Dermatitis - 04/21/2012 Contact Dermatitis and Other Eczema, Due to Unspecified Cause - 04/21/2012 Pruritus - 04/21/2012 Urticaria - 04/21/2012 Heart Murmur - 10/20/2010 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 Chronic Interstitial Cystitis - 06/26/2009 Benign Neoplasm of Colon - 06/04/2008 Social History Tobacco Use Smoking status: Never Smokeless tobacco: Never Vaping Use Vaping status: Never Used Substance Use Topics Alcohol use: Yes Comment: Seldom Drug use: No Constitutional: (+) fatigue Gastrointestinal: (+) right upper abdominal pain, (+) belching, (-) nausea, (-) vomiting, (-) bowel habit changes Neurological: (+) sciatica, (+) neuralgia (shingles-related) Psychiatric: (+) stress OBJECTIVE BP 124/72 Pulse 97 Wt 156 lb 8.4 oz (71.0kg) SpO2 96% Physical Exam Vitals and nursing note reviewed. Constitutional: General: She is awake. She is not in acute distress. Appearance: Normal appearance. She is well-developed and well-groomed. She is not ill-appearing, toxic-appearing or diaphoretic. HENT: Head: Normocephalic. Right Ear: External ear normal. Left Ear: External ear normal. Nose: Nose normal. Eyes: General: Vision grossly intact. Conjunctiva/sclera: Conjunctivae normal. Pupils: Pupils are equal, round, and reactive to light. Neck: Vascular: No JVD. Trachea: Trachea normal. Pulmonary: Effort: Pulmonary effort is normal. No accessory muscle usage, prolonged expiration or respiratory distress. Musculoskeletal: Cervical back: Neck supple. Skin: General: Skin is warm and dry. Capillary Refill: Capillary refill takes less than 2 seconds. Neurological: General: No focal deficit present. Mental Status: She is alert and oriented to person, place, and time. Mental status is at baseline. Psychiatric: Attention and Perception: Attention and perception normal. Mood and Affect: Mood and affect normal. Speech: Speech normal. Behavior: Behavior normal. Behavior is cooperative. Thought Content: Thought content normal. Cognition and Memory: Cognition and memory normal. Judgment: Judgment normal. ASSESSMENT/PLAN: 1. Postherpetic neuralgia (B02.29) Persistent pain since shingles diagnosis on December 24. Currently managed with gabapentin, recently reduced from 400 mg to 200 mg at night due to concerns about constipation and fatigue. - Continue gabapentin 200 mg at bedtime. Stop am dose. - Educated patient on the variable course of postherpetic neuralgia, including potential for prolonged symptoms. 2. Generalized abdominal pain (R10.84) Abdominal pain began around March 14th-15th, described as three different types: constant pressure, sharp stabbing, and generalized aching. Pain worsens with certain movements. No associated nausea or vomiting. Recent CMP, CBC, and lipase were normal. - Ordered abdominal ultrasound to evaluate gallbladder function. - Initiate [id number] Prilosec to reduce gastric irritation. 3. Other fatigue (R53.83) Experiencing significant fatigue, potentially multifactorial: recent viral illnesses (flu, norovirus, URI), stress from family medical issues, and medication side effects (gabapentin). - Monitor fatigue levels with reduction in gabapentin dosage. - Follow-up after ultrasound results to reassess symptoms and management plan. Portions of this note have been entered by ancillary staff. I have reviewed and when necessary edited, so that they are an adequate record of my encounter with this patient Please note that parts of this document were created using voice recognition software and therefore may contain grammatical errors. Patient verbalizes understanding of instructions from today's visit and in agreement with treatment plan. Questions answered. Agrees to call the office if questions, concerns of issues with acute symptoms not improving or if they worsen. See diagnoses and orders for additional plan(s). Allergies and medications were reviewed, list was updated, and refills given if needed. Past medical, surgical, social, and family history reviewed and updated as appropriate. Encouraged proper diet & exercise as well as compliance with taking medications. Age-appropriate health preventative measures were discussed. Return if symptoms worsen or fail to improve, for Keep next scheduled appointment.. BRUNO Nguyen documented in this encounter [facility] 02-13-2025 Telephone encounter Note Patient given results and verbalized understanding of instructions given. Vidhya Robledo MA [facility] 02-13-2025 Miscellaneous Notes Patient given results and verbalized understanding of instructions given. Vidhya Robledo MA Please inform patient labs were normal. Follow-up with PCP as scheduled tomorrow. documented in this encounter [facility] 02-13-2025 Telephone encounter Note Please inform patient labs were normal. Follow-up with PCP as scheduled tomorrow. [facility] 02-13-2025 Note HNO ID: [id number] Author: DINH BARKSDALE APRN.CNP Service: ? Author Type: Nurse Practitioner Type: Progress Notes Filed: 02/13/2025 15:29 Note Text: Subjective HPI Nontoxic-appearing 74-year-old female presents urgent care chief complaint abdominal pain. Duration of symptoms 2 months. Associated symptoms right upper middle and lower abdominal discomfort for the past 2 months. States started shortly after developing shingles. Pain has been persistent. Is exacerbated by certain movements. States is exacerbated by standing for long period of time. OTC medications none. States she does have some post shingle discomfort. Is on gabapentin currently. Rates pain as an aching 5 out of 10. States 6 out of 10 if she stands. No change in bowel or bladder habit. No vomiting. No fevers. No nausea. Past medical history prescription medications allergies reviewed .Patient presents with: Abdominal Pain: R abdomen x3 days, has had consistent pain x2 months post shingles, pain is different and worsening PAST MEDICAL HISTORY Diagnosis Date Acid reflux Benign neoplasm of colon Diaphragmatic hernia without mention of obstruction or gangrene takes tums Frequent UTI Dr. 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 Multiple thyroid nodules Pneumonia, viral Post herpetic neuralgia 01/17/2025 Shingles Symptomatic menopausal or female climacteric states hot flashes, night sweats PAST SURGICAL HISTORY Procedure Laterality Date COLSC FLX W/RMVL OF TUMOR POLYP LESION SNARE TQ 06/04/2008 EXC LESION TDN SHTH/JT CAPSL HAND/FNGR Left 03/20/2019 Excision of left thumb ganglion cyst THYROID RIGHT FINE NEEDLE ASPIRATION Right 05/06/2024 UNSPECIFIED ORAL SURGERY PROCEDURE, BY REPORT [place] teeth extracted UNSPECIFIED ORAL SURGERY PROCEDURE, BY REPORT 12/2016 tooth extracted VAGINAL HYSTERECTOMY UTERUS 250 GM/< 07/29/2008 Hysterectomy, vaginal w/ cystocele repair, removed one ovary ALLERGIES Marcaine-Epinephrine [Bupivacaine-Epinephrine], Augmentin [Amoxicillin-Pot Clavulanate], Bactrim [Sulfamethoxazole], Doxycycline, Erythromycin, Meloxicam Submicronized, Prolia [Denosumab], and Rondec [Brompheniramine-Pseudoephedrin] MEDICATIONS gabapentin (NEURONTIN) 400 mg capsule Take 400 mg at bedtime along with 200 mg in the morning gabapentin (NEURONTIN) 100 mg capsule Take two tablets in AM in addition to 400 mg at bedtime ascorbic acid, vitamin C, (VITAMIN C) 500 mg tablet Take 500 mg by mouth once daily. metoprolol succinate ER (TOPROL XL) 25 mg 24 hr tablet Take 1 tablet by mouth once daily. CRANBERRY ORAL Take by mouth. multivitamin ORAL tablet Take 1 tablet by mouth once daily. FAMILY HISTORY Problem Relation Age of Onset Breast Cancer Mother CHF age of breast cancer 60's Breast Cancer Sister late 50's, Cancer Sister BRAIN age 70 Breast Cancer Maternal Grandmother Social History Tobacco Use Smoking status: Never Smokeless tobacco: Never Vaping Use Vaping status: Never Used Substance Use Topics Alcohol use: Yes Comment: Seldom Drug use: No Review of Systems Constitutional: Negative for chills, fever and malaise/fatigue. HENT: Negative for congestion, ear discharge, ear pain, sinus pain and sore throat. Eyes: Negative for blurred vision, pain, discharge and redness. Respiratory: Negative for cough, hemoptysis, sputum production, shortness of breath, wheezing and stridor. Cardiovascular: Negative for chest pain. Gastrointestinal: Positive for abdominal pain. Negative for diarrhea, nausea and vomiting. Musculoskeletal: Negative for back pain, falls, joint pain, myalgias and neck pain. Skin: Negative for itching and rash. Neurological: Negative for dizziness, loss of consciousness, weakness and headaches. Objective Physical Exam Constitutional: General: She is not in acute distress. Appearance: She is not diaphoretic. HENT: Head: Normocephalic. Jaw: No trismus, tenderness, swelling or pain on movement. Mouth/Throat: Mouth: Mucous membranes are moist. Pharynx: Oropharynx is clear. Uvula midline. No pharyngeal swelling, oropharyngeal exudate, posterior oropharyngeal erythema or uvula swelling. Eyes: Conjunctiva/sclera: Conjunctivae normal. Pupils: Pupils are equal, round, and reactive to light. Cardiovascular: Rate and Rhythm: Normal rate and regular rhythm. Heart sounds: Normal heart sounds. Pulmonary: Effort: Pulmonary effort is normal. No tachypnea, accessory muscle usage or respiratory distress. Breath sounds: Normal breath sounds. No stridor. No wheezing, rhonchi or rales. Abdominal: General: There is no distension. Palpations: Abdomen is soft. Tenderness: There is generalized abdominal tenderness. There is no guarding or rebound. Comments: Mild Musculoskeletal: Cervical back: Normal range of motion and neck supp (more content not included)... [facility] 02-13-2025 History of Present illness Narrative Subjective HPI Nontoxic-appearing 74-year-old female presents urgent care chief complaint abdominal pain. Duration of symptoms 2 months. Associated symptoms right upper middle and lower abdominal discomfort for the past 2 months. States started shortly after developing shingles. Pain has been persistent. Is exacerbated by certain movements. States is exacerbated by standing for long period of time. OTC medications none. States she does have some post shingle discomfort. Is on gabapentin currently. Rates pain as an aching 5 out of 10. States 6 out of 10 if she stands. No change in bowel or bladder habit. No vomiting. No fevers. No nausea. Past medical history prescription medications allergies reviewed .Patient presents with: Abdominal Pain: R abdomen x3 days, has had consistent pain x2 months post shingles, pain is different and worsening PAST MEDICAL HISTORY Diagnosis Date Acid reflux Benign neoplasm of colon Diaphragmatic hernia without mention of obstruction or gangrene takes tums Frequent UTI Dr. 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 Multiple thyroid nodules Pneumonia, viral Post herpetic neuralgia 01/17/2025 Shingles Symptomatic menopausal or female climacteric states hot flashes, night sweats PAST SURGICAL HISTORY Procedure Laterality Date COLSC FLX W/RMVL OF TUMOR POLYP LESION SNARE TQ 06/04/2008 EXC LESION TDN SHTH/JT CAPSL HAND/FNGR Left 03/20/2019 Excision of left thumb ganglion cyst THYROID RIGHT FINE NEEDLE ASPIRATION Right 05/06/2024 UNSPECIFIED ORAL SURGERY PROCEDURE, BY REPORT [place] teeth extracted UNSPECIFIED ORAL SURGERY PROCEDURE, BY REPORT 12/2016 tooth extracted VAGINAL HYSTERECTOMY UTERUS 250 GM/< 07/29/2008 Hysterectomy, vaginal w/ cystocele repair, removed one ovary ALLERGIES Marcaine-Epinephrine [Bupivacaine-Epinephrine], Augmentin [Amoxicillin-Pot Clavulanate], Bactrim [Sulfamethoxazole], Doxycycline, Erythromycin, Meloxicam Submicronized, Prolia [Denosumab], and Rondec [Brompheniramine-Pseudoephedrin] MEDICATIONS gabapentin (NEURONTIN) 400 mg capsule Take 400 mg at bedtime along with 200 mg in the morning gabapentin (NEURONTIN) 100 mg capsule Take two tablets in AM in addition to 400 mg at bedtime ascorbic acid, vitamin C, (VITAMIN C) 500 mg tablet Take 500 mg by mouth once daily. metoprolol succinate ER (TOPROL XL) 25 mg 24 hr tablet Take 1 tablet by mouth once daily. CRANBERRY ORAL Take by mouth. multivitamin ORAL tablet Take 1 tablet by mouth once daily. FAMILY HISTORY Problem Relation Age of Onset Breast Cancer Mother CHF age of breast cancer 60's Breast Cancer Sister late 50's, Cancer Sister BRAIN age 70 Breast Cancer Maternal Grandmother Social History Tobacco Use Smoking status: Never Smokeless tobacco: Never Vaping Use Vaping status: Never Used Substance Use Topics Alcohol use: Yes Comment: Seldom Drug use: No Review of Systems Constitutional: Negative for chills, fever and malaise/fatigue. HENT: Negative for congestion, ear discharge, ear pain, sinus pain and sore throat. Eyes: Negative for blurred vision, pain, discharge and redness. Respiratory: Negative for cough, hemoptysis, sputum production, shortness of breath, wheezing and stridor. Cardiovascular: Negative for chest pain. Gastrointestinal: Positive for abdominal pain. Negative for diarrhea, nausea and vomiting. Musculoskeletal: Negative for back pain, falls, joint pain, myalgias and neck pain. Skin: Negative for itching and rash. Neurological: Negative for dizziness, loss of consciousness, weakness and headaches. Objective Physical Exam Constitutional: General: She is not in acute distress. Appearance: She is not diaphoretic. HENT: Head: Normocephalic. Jaw: No trismus, tenderness, swelling or pain on movement. Mouth/Throat: Mouth: Mucous membranes are moist. Pharynx: Oropharynx is clear. Uvula midline. No pharyngeal swelling, oropharyngeal exudate, posterior oropharyngeal erythema or uvula swelling. Eyes: Conjunctiva/sclera: Conjunctivae normal. Pupils: Pupils are equal, round, and reactive to light. Cardiovascular: Rate and Rhythm: Normal rate and regular rhythm. Heart sounds: Normal heart sounds. Pulmonary: Effort: Pulmonary effort is normal. No tachypnea, accessory muscle usage or respiratory distress. Breath sounds: Normal breath sounds. No stridor. No wheezing, rhonchi or rales. Abdominal: General: There is no distension. Palpations: Abdomen is soft. Tenderness: There is generalized abdominal tenderness. There is no guarding or rebound. Comments: Mild Musculoskeletal: Cervical back: Normal range of motion and neck supple. No edema, erythema, rigidity or tenderness. No pain with movement. Normal range of motion. Lymphadenopathy: Cervical: No cervical adenopathy. Skin: General: Skin is warm and dry. Neurological: Mental Status: She is alert and oriented to person, place, and time. ASSESSMENT/PLAN: 1. Abdominal pain, unspecified abdominal location - ICD9: 789.00, ICD10: R10.9 - COMPLETE BLOOD COUNT AND DIFFERENTIAL - COMPREHENSIVE METABOLIC PANEL - LIPASE Muscle skeletal, nerve pain versus gallbladder. Diagnosed with generalized abdominal pain. No evidence of acute abdomen on today's visit. Baseline labs obtained. Follow-up with family medicine as scheduled tomorrow. Red flags ER evaluation for tonight discussed. Patient was educated on supportive therapies. Patient will follow up with primary care provider as needed. Patient was instructed to immediately proceed to emergency room for any new, worsening, or symptoms lasting longer than anticipated. The patient's clinical presentation is otherwise unremarkable at this time. Based on exam and clinical finding, the patient is stable for discharge. Plan of care was discussed with patient. Patient verbalizes understanding and agrees to plan of care. This note was generated using [employer] software. It may contain errors in wording, punctuation, or spelling. Dinh Barksdale APRN.METALLURGICAL ENGINEERING TECHNICIAN documented in this encounter [facility] 01-17-2025 Note HNO ID: [id number] Author: ASHLYN KEITA APRN.[facility] Service: ? Author Type: Nurse Practitioner Type: Progress Notes Filed: 01/18/2025 20:59 Note Text: 01/17/2025 Patient presents with: Back Pain: Right side started around 12/26 SUBJECTIVE: This is a 74 year old that is here today for Above Complaints.. Diagnosed with shingles on 12/24/2024. Treated with gabapentin and valacyclovir. Recently went on road trip and her pain seemed to worsen and she thinks this is possible sciatica. Pain located at right back and radiates into her right abdomen. Described as sharp and stabbing. Aggravated by sitting or standing in one position. Walking help. Having problems sleeping due to the pain. Denies past back injury/surgery, saddle anaesthesia, urinary/bowel incontinence or inability, extremity numbness, tingling or weakness PAST MEDICAL HISTORY Diagnosis Date Acid reflux Benign neoplasm of colon Diaphragmatic hernia without mention of obstruction or gangrene takes tums Frequent UTI Dr. 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 ascorbic acid, vitamin C, (VITAMIN C) 500 mg tablet Take 500 mg by mouth once daily. metoprolol succinate ER (TOPROL XL) 25 mg 24 hr tablet Take 1 tablet by mouth once daily. CRANBERRY ORAL Take by mouth. multivitamin ORAL tablet Take 1 tablet by mouth once daily. No current facility-administered medications for this visit. Medications and allergies reviewed by this provider. SOCIAL HISTORY Social History Tobacco Use Smoking status: Never Smokeless tobacco: Never Vaping Use Vaping status: Never Used Substance Use Topics Alcohol use: Yes Comment: Seldom Drug use: No REVIEW OF SYSTEMS All other reviewed and negative other than HPI. OBJECTIVE: BP 132/88 Pulse 62 Resp 18 Wt 71.9 kg (158 lb 9.6 oz) SpO2 94% BMI 29.01 kg/m? . Vital signs reviewed by this provider. APPEARANCE Well appearing, alert, in no acute distress, well-hydrated, well nourished. EYES PERRLA, conjunctiva and sclera normal. BACK: Normal exam, good flexion and extension, negative SLR test. Patient reports pain is located around her shingles rash NEURO Reflexes symmetrical, Normal gait, No involuntary motions., and negative findings: gait, including heel, toe, and tandem walking normal, muscle tone normal, muscle strength normal, reflexes normal and symmetric, plantar response downgoing bilaterally SKIN resolving shingles rash right back around to right abdomen Depression Screening Never done Anxiety Screening Never done Pneumococcal Vaccine: 50+(1 of 1 - PCV) Never done Colorectal Cancer Screening due on 08/19/2020 Advance Directive Discussion Never done Influenza Vaccine(1) due on 04/07/2025 Shingrix Vaccine(1 of 2) due on 11/12/2025 Covid-19 Vaccine( season) due on 11/12/2025 Mammogram Screening due on 11/08/2025 Bone Density Screening due on 12/06/2026 RSV Vaccine(1 - 1-dose 75+ series) due on 12/26/2026 Diabetes Screening due on 11/27/2027 DTaP,Tdap,Td Vaccine(2 - Td or Tdap) due on 09/04/2029 Lipid Screening due on 11/12/2029 Hepatitis C Screening Completed ASSESSMENT/PLAN: 1. Postherpetic neuralgia - ICD9: 053.19, ICD10: B02.29 - will increase gabapentin to 400 mg at bedtime and 200 mg in the AM - GABAPENTIN 400 MG CAPSULE - if not improving she is to My Chart message me and I can adjust dosage PDMP website checked and validated. All prescriptions have been APPROPRIATELY filled. No suspicious activity was identified. 01/18/2025 by AMMY MaclogNEPTALI [email or web address] Prescription instructions reviewed with patient as applicable. Patient advised if symptoms do not improve or if symptoms worsen sooner, to contact their primary care physician. Potential red flag symptoms discussed with the patient. Reviewed appropriate action plan to take if red flag symptoms occur. Patient agreeable to treatment plan. I spent a total of 30 minutes on the date of the service which included preparing to see the patient, [id number] patient care, completing clinical documentation, obtaining and/or reviewing separately obtained history, performing a medically appropriate examination, counseling and educating the patient/family/caregiver, and ordering medications, tests, or procedures. [facility] 01-17-2025 History of Present illness Narrative 01/17/2025 Patient presents with: Back Pain: Right side started around 12/26 SUBJECTIVE: This is a 74 year old that is here today for Above Complaints.. Diagnosed with shingles on 12/24/2024. Treated with gabapentin and valacyclovir. Recently went on road trip and her pain seemed to worsen and she thinks this is possible sciatica. Pain located at right back and radiates into her right abdomen. Described as sharp and stabbing. Aggravated by sitting or standing in one position. Walking help. Having problems sleeping due to the pain. Denies past back injury/surgery, saddle anaesthesia, urinary/bowel incontinence or inability, extremity numbness, tingling or weakness PAST MEDICAL HISTORY Diagnosis Date Acid reflux Benign neoplasm of colon Diaphragmatic hernia without mention of obstruction or gangrene takes tums Frequent UTI Dr. 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 ascorbic acid, vitamin C, (VITAMIN C) 500 mg tablet Take 500 mg by mouth once daily. metoprolol succinate ER (TOPROL XL) 25 mg 24 hr tablet Take 1 tablet by mouth once daily. CRANBERRY ORAL Take by mouth. multivitamin ORAL tablet Take 1 tablet by mouth once daily. No current facility-administered medications for this visit. Medications and allergies reviewed by this provider. SOCIAL HISTORY Social History Tobacco Use Smoking status: Never Smokeless tobacco: Never Vaping Use Vaping status: Never Used Substance Use Topics Alcohol use: Yes Comment: Seldom Drug use: No REVIEW OF SYSTEMS All other reviewed and negative other than HPI. OBJECTIVE: BP 132/88 Pulse 62 Resp 18 Wt 71.9 kg (158 lb 9.6 oz) SpO2 94% BMI 29.01 kg/m . Vital signs reviewed by this provider. APPEARANCE Well appearing, alert, in no acute distress, well-hydrated, well nourished. EYES PERRLA, conjunctiva and sclera normal. BACK: Normal exam, good flexion and extension, negative SLR test. Patient reports pain is located around her shingles rash NEURO Reflexes symmetrical, Normal gait, No involuntary motions., and negative findings: gait, including heel, toe, and tandem walking normal, muscle tone normal, muscle strength normal, reflexes normal and symmetric, plantar response downgoing bilaterally SKIN resolving shingles rash right back around to right abdomen Depression Screening Never done Anxiety Screening Never done Pneumococcal Vaccine: 50+(1 of 1 - PCV) Never done Colorectal Cancer Screening due on 08/19/2020 Advance Directive Discussion Never done Influenza Vaccine(1) due on 04/07/2025 Shingrix Vaccine(1 of 2) due on 11/12/2025 Covid-19 Vaccine( season) due on 11/12/2025 Mammogram Screening due on 11/08/2025 Bone Density Screening due on 12/06/2026 RSV Vaccine(1 - 1-dose 75+ series) due on 12/26/2026 Diabetes Screening due on 11/27/2027 DTaP,Tdap,Td Vaccine(2 - Td or Tdap) due on 09/04/2029 Lipid Screening due on 11/12/2029 Hepatitis C Screening Completed ASSESSMENT/PLAN: 1. Postherpetic neuralgia - ICD9: 053.19, ICD10: B02.29 - will increase gabapentin to 400 mg at bedtime and 200 mg in the AM - GABAPENTIN 400 MG CAPSULE - if not improving she is to My Chart message me and I can adjust dosage PDMP website checked and validated. All prescriptions have been APPROPRIATELY filled. No suspicious activity was identified. 01/18/2025 by Ashlyn Keita APRN.AYAH Keita APRN.AYAH Prescription instructions reviewed with patient as applicable. Patient advised if symptoms do not improve or if symptoms worsen sooner, to contact their primary care physician. Potential red flag symptoms discussed with the patient. Reviewed appropriate action plan to take if red flag symptoms occur. Patient agreeable to treatment plan. I spent a total of 30 minutes on the date of the service which included preparing to see the patient, [id number] patient care, completing clinical documentation, obtaining and/or reviewing separately obtained history, performing a medically appropriate examination, counseling and educating the patient/family/caregiver, and ordering medications, tests, or procedures. documented in this encounter [facility] 01-06-2025 Note HNO ID: [id number] Author: WANDA GAN APRN.[employer] Service: ? Author Type: Nurse Specialist Type: Progress Notes Filed: 01/06/2025 15:30 Note Text: Subjective Patient ID: Velia is a 74 year old female who presents for Pain (shingles /). HPI Herpes Zoster: - Recent shingles outbreak with rash that developed into large blisters, which scabbed over and bled. - Rash is still present, described as crusty and scabby. - Completed a 7-day course of antiviral medication. - Previous episode of shingles affected the side of her face and right ear, with residual ear pain. - Has not received the shingles vaccine. Pain: - Experiencing severe electrical pain, described as stabbing, which is exacerbated by movement and interferes with sleep. - Pain is both constant and intermittent, with a dull, steady pain in the lower back and sciatic nerve area, and sharp, shooting pain in the ribs and around the nerve pathways. - Pain is present both internally and externally. - Pain is aggravated by wearing tight clothing, including bras and pants. - Taking gabapentin 200 mg at night, which provides minimal relief for the pain. - Hesitant to increase gabapentin dosage during the day due to side effects of drowsiness and brain fog. - Using Tylenol during the day for pain management. - Denies tolerance to prednisone, stating it is only used when necessary for conditions like poison tyesha. Appetite Changes: - Reports a significant decrease in appetite, with food described as unappealing. - Consuming a limited diet, eating the same meals daily for weeks. Weight down 7 lbs since beginning of month. Constitutional: (+) fatigue, (+) decreased appetite Ears/Nose/Mouth/Throat: (+) otalgia (ear pain) Musculoskeletal: (+) rib pain, (+) sciatic region pain Skin: (+) rash (crusting, scabbing) Neurological: (+) neuropathic (electric) pain, (+) sleep disturbance, (+) difficulty concentrating Objective BP (P) 134/81 Pulse (P) 78 Resp (P) 16 Wt (P) 72 kg (158 lb 11.7 oz) BMI (P) 29.03 kg/m? Physical Exam Vitals and nursing note reviewed. Constitutional: Appearance: Normal appearance. HENT: Head: Normocephalic and atraumatic. Eyes: Conjunctiva/sclera: Conjunctivae normal. Cardiovascular: Rate and Rhythm: Normal rate. Pulmonary: Effort: Pulmonary effort is normal. Skin: General: Skin is warm and dry. Comments: large swath of shingles lesions, drying and crusting over right lower back around to umbilicus Neurological: General: No focal deficit present. Mental Status: She is alert and oriented to person, place, and time. 1. Herpes zoster without complication (B02.9) - Rash has progressed to crusty and scabby lesions, some of which bleed; completed a 7-day course of antiviral medication. - Discussed the benefits of the shingles vaccine, which can decrease the risk of recurrence by about 90%. 2. Lack of appetite (R63.0) - Decreased appetite noted, possibly related to recent antiviral treatment. - Monitor dietary intake; advised to maintain hydration and nutrition. 3. Postherpetic neuralgia (B02.29) - Experiencing constant, steady, dull pain as well as intermittent sharp, electrical pains. - Current gabapentin dose of 200 mg at bedtime increased to 300 mg at bedtime; instructed to take three 100 mg capsules until current supply is exhausted, then switch to one 300 mg capsule. - Advised to wear loose clothing to minimize discomfort. - Discussed potential for further increasing gabapentin dosage if needed; patient to contact office via phone for adjustments. Medical Decision Making: Problems: Low: Acute, uncomplicated illness or injury Risk: Moderate: Drug management Medical Decision Making Level: 3 - Low [facility] 01-06-2025 History of Present illness Narrative Images from the original note were not included. Subjective Patient ID: Velia is a 74 year old female who presents for Pain (shingles /). HPI Herpes Zoster: - Recent shingles outbreak with rash that developed into large blisters, which scabbed over and bled. - Rash is still present, described as crusty and scabby. - Completed a 7-day course of antiviral medication. - Previous episode of shingles affected the side of her face and right ear, with residual ear pain. - Has not received the shingles vaccine. Pain: - Experiencing severe electrical pain, described as stabbing, which is exacerbated by movement and interferes with sleep. - Pain is both constant and intermittent, with a dull, steady pain in the lower back and sciatic nerve area, and sharp, shooting pain in the ribs and around the nerve pathways. - Pain is present both internally and externally. - Pain is aggravated by wearing tight clothing, including bras and pants. - Taking gabapentin 200 mg at night, which provides minimal relief for the pain. - Hesitant to increase gabapentin dosage during the day due to side effects of drowsiness and brain fog. - Using Tylenol during the day for pain management. - Denies tolerance to prednisone, stating it is only used when necessary for conditions like poison tyesha. Appetite Changes: - Reports a significant decrease in appetite, with food described as unappealing. - Consuming a limited diet, eating the same meals daily for weeks. Weight down 7 lbs since beginning of month. Constitutional: (+) fatigue, (+) decreased appetite Ears/Nose/Mouth/Throat: (+) otalgia (ear pain) Musculoskeletal: (+) rib pain, (+) sciatic region pain Skin: (+) rash (crusting, scabbing) Neurological: (+) neuropathic (electric) pain, (+) sleep disturbance, (+) difficulty concentrating Objective BP (P) 134/81 Pulse (P) 78 Resp (P) 16 Wt (P) 72 kg (158 lb 11.7 oz) BMI (P) 29.03 kg/m Physical Exam Vitals and nursing note reviewed. Constitutional: Appearance: Normal appearance. HENT: Head: Normocephalic and atraumatic. Eyes: Conjunctiva/sclera: Conjunctivae normal. Cardiovascular: Rate and Rhythm: Normal rate. Pulmonary: Effort: Pulmonary effort is normal. Skin: General: Skin is warm and dry. Comments: large swath of shingles lesions, drying and crusting over right lower back around to umbilicus Neurological: General: No focal deficit present. Mental Status: She is alert and oriented to person, place, and time. 1. Herpes zoster without complication (B02.9) - Rash has progressed to crusty and scabby lesions, some of which bleed; completed a 7-day course of antiviral medication. - Discussed the benefits of the shingles vaccine, which can decrease the risk of recurrence by about 90%. 2. Lack of appetite (R63.0) - Decreased appetite noted, possibly related to recent antiviral treatment. - Monitor dietary intake; advised to maintain hydration and nutrition. 3. Postherpetic neuralgia (B02.29) - Experiencing constant, steady, dull pain as well as intermittent sharp, electrical pains. - Current gabapentin dose of 200 mg at bedtime increased to 300 mg at bedtime; instructed to take three 100 mg capsules until current supply is exhausted, then switch to one 300 mg capsule. - Advised to wear loose clothing to minimize discomfort. - Discussed potential for further increasing gabapentin dosage if needed; patient to contact office via phone for adjustments. Medical Decision Making: Problems: Low: Acute, uncomplicated illness or injury Risk: Moderate: Drug management Medical Decision Making Level: 3 - Low documented in this encounter [facility] 12-24-2024 Note Addended by: REGINE IVEY on: 12/24/2024 11:01 AM Modules accepted: Orders [facility] 12-24-2024 Miscellaneous Notes Addended by: REGINE IVEY on: 12/24/2024 11:01 AM Modules accepted: Orders documented in this encounter [facility] 12-24-2024 Note HNO ID: [id number] Author: REGINE IVEY APRN.AYAH Service: ? Author Type: Nurse Practitioner Type: Progress Notes Filed: 12/24/2024 10:59 Note Text: Chief Complaint Patient presents with: Rash: Painful rash X 5 days HPI Lauryn Bang is a 73 year old female who presents here today for Above Complaints.. Patient presents for painful rash x5 days to right abdomen. Patient reports it is painful and has kept her up the past couple nights. Past medical history, appointments, medications, allergies reviewed. Previous Medical History PAST MEDICAL HISTORY Diagnosis Date Acid reflux Benign neoplasm of colon Diaphragmatic hernia without mention of obstruction or gangrene takes tums Frequent UTI Dr. 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 Multiple thyroid nodules Pneumonia, viral Shingles Symptomatic menopausal or female climacteric states hot flashes, night sweats Previous Surgical History PAST SURGICAL HISTORY Procedure Laterality Date COLSC FLX W/RMVL OF TUMOR POLYP LESION SNARE TQ 06/04/2008 EXC LESION TDN SHTH/JT CAPSL HAND/FNGR Left 03/20/2019 Excision of left thumb ganglion cyst THYROID RIGHT FINE NEEDLE ASPIRATION Right 05/06/2024 UNSPECIFIED ORAL SURGERY PROCEDURE, BY REPORT [place] teeth extracted UNSPECIFIED ORAL SURGERY PROCEDURE, BY REPORT 12/2016 tooth extracted VAGINAL HYSTERECTOMY UTERUS 250 GM/< 07/29/2008 Hysterectomy, vaginal w/ cystocele repair, removed one ovary Family History FAMILY HISTORY Problem Relation Age of Onset Breast Cancer Mother CHF age of breast cancer 60's Breast Cancer Sister late 50's, Cancer Sister BRAIN age 70 Breast Cancer Maternal Grandmother Patient Allergies ALLERGIES Allergen Reactions Marcaine-Epinephrin* Shortness of Breath, Angioedema Tolerates Lidocaine/Epinephrine Augmentin [Amoxicil* Diarrhea Bactrim [Sulfametho* GI Upset Doxycycline Rash Erythromycin unknown Meloxicam Submicron* GI Upset Prolia [Denosumab] Unknown Leg aching Rondec [Bromphenira* Unknown Current Medications Current Outpatient Medications on File Prior to Visit Medication Sig ascorbic acid, vitamin C, (VITAMIN C) 500 mg tablet Take 500 mg by mouth once daily. metoprolol succinate ER (TOPROL XL) 25 mg 24 hr tablet Take 1 tablet by mouth once daily. CRANBERRY ORAL Take by mouth. multivitamin ORAL tablet Take 1 tablet by mouth once daily. No current facility-administered medications on file prior to visit. Social History Social History Tobacco Use Smoking status: Never Smokeless tobacco: Never Vaping Use Vaping status: Never Used Substance Use Topics Alcohol use: Yes Comment: Seldom Drug use: No Review of Symptoms REVIEW OF SYSTEMS SEE HPI EXAM: BP 126/76 Pulse 82 Wt 71 kg (156 lb 8.4 oz) BMI 28.63 kg/m? General Appearance: Well appearing, alert, in no acute distress, well-hydrated, well nourished.. Skin: Raised Blistery rash to right abdomen extending from spine to umbilicus. Health Maintenance List Depression Screening Never done Anxiety Screening Never done Pneumococcal Vaccine: 50+(1 of 1 - PCV) Never done Colorectal Cancer Screening due on 08/19/2020 Advance Directive Discussion Never done Influenza Vaccine(1) due on 04/07/2025 Shingrix Vaccine(1 of 2) due on 11/12/2025 Covid-19 Vaccine(4 - season) due on 11/12/2025 Mammogram Screening due on 11/08/2025 Bone Density Screening due on 12/06/2026 RSV Vaccine(1 - 1-dose 75+ series) due on 12/26/2026 Diabetes Screening due on 11/27/2027 DTaP,Tdap,Td Vaccine(2 - Td or Tdap) due on 09/04/2029 Lipid Screening due on 11/12/2029 Hepatitis C Screening Completed ASSESSMENT/PLAN: 1. Herpes zoster without complication - ICD9: 053.9, ICD10: B02.9 -Patient advised to avoid interaction with newborns and women and that shingles is contagious until the rash is crusted over. - VALACYCLOVIR 1 GRAM TABLET - GABAPENTIN 100 MG CAPSULE Regine Ivey APRN.[facility] 12-24-2024 History of Present illness Narrative Chief Complaint Patient presents with: Rash: Painful rash X 5 days HPI Lauryn Bang is a 73 year old female who presents here today for Above Complaints.. Patient presents for painful rash x5 days to right abdomen. Patient reports it is painful and has kept her up the past couple nights. Past medical history, appointments, medications, allergies reviewed. Previous Medical History PAST MEDICAL HISTORY Diagnosis Date Acid reflux Benign neoplasm of colon Diaphragmatic hernia without mention of obstruction or gangrene takes tums Frequent UTI Dr. 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 Multiple thyroid nodules Pneumonia, viral Shingles Symptomatic menopausal or female climacteric states hot flashes, night sweats Previous Surgical History PAST SURGICAL HISTORY Procedure Laterality Date COLSC FLX W/RMVL OF TUMOR POLYP LESION SNARE TQ 06/04/2008 EXC LESION TDN SHTH/JT CAPSL HAND/FNGR Left 03/20/2019 Excision of left thumb ganglion cyst THYROID RIGHT FINE NEEDLE ASPIRATION Right 05/06/2024 UNSPECIFIED ORAL SURGERY PROCEDURE, BY REPORT [place] teeth extracted UNSPECIFIED ORAL SURGERY PROCEDURE, BY REPORT 12/2016 tooth extracted VAGINAL HYSTERECTOMY UTERUS 250 GM/< 07/29/2008 Hysterectomy, vaginal w/ cystocele repair, removed one ovary Family History FAMILY HISTORY Problem Relation Age of Onset Breast Cancer Mother CHF age of breast cancer 60's Breast Cancer Sister late 50's, Cancer Sister BRAIN age 70 Breast Cancer Maternal Grandmother Patient Allergies ALLERGIES Allergen Reactions Marcaine-Epinephrin* Shortness of Breath, Angioedema Tolerates Lidocaine/Epinephrine Augmentin [Amoxicil* Diarrhea Bactrim [Sulfametho* GI Upset Doxycycline Rash Erythromycin unknown Meloxicam Submicron* GI Upset Prolia [Denosumab] Unknown Leg aching Rondec [Bromphenira* Unknown Current Medications Current Outpatient Medications on File Prior to Visit Medication Sig ascorbic acid, vitamin C, (VITAMIN C) 500 mg tablet Take 500 mg by mouth once daily. metoprolol succinate ER (TOPROL XL) 25 mg 24 hr tablet Take 1 tablet by mouth once daily. CRANBERRY ORAL Take by mouth. multivitamin ORAL tablet Take 1 tablet by mouth once daily. No current facility-administered medications on file prior to visit. Social History Social History Tobacco Use Smoking status: Never Smokeless tobacco: Never Vaping Use Vaping status: Never Used Substance Use Topics Alcohol use: Yes Comment: Seldom Drug use: No Review of Symptoms REVIEW OF SYSTEMS SEE HPI EXAM: BP 126/76 Pulse 82 Wt 71 kg (156 lb 8.4 oz) BMI 28.63 kg/m General Appearance: Well appearing, alert, in no acute distress, well-hydrated, well nourished.. Skin: Raised Blistery rash to right abdomen extending from spine to umbilicus. Health Maintenance List Depression Screening Never done Anxiety Screening Never done Pneumococcal Vaccine: 50+(1 of 1 - PCV) Never done Colorectal Cancer Screening due on 08/19/2020 Advance Directive Discussion Never done Influenza Vaccine(1) due on 04/07/2025 Shingrix Vaccine(1 of 2) due on 11/12/2025 Covid-19 Vaccine( - season) due on 11/12/2025 Mammogram Screening due on 11/08/2025 Bone Density Screening due on 12/06/2026 RSV Vaccine(1 - 1-dose 75+ series) due on 12/26/2026 Diabetes Screening due on 11/27/2027 DTaP,Tdap,Td Vaccine(2 - Td or Tdap) due on 09/04/2029 Lipid Screening due on 11/12/2029 Hepatitis C Screening Completed ASSESSMENT/PLAN: 1. Herpes zoster without complication - ICD9: 053.9, ICD10: B02.9 -Patient advised to avoid interaction with newborns and women and that shingles is contagious until the rash is crusted over. - VALACYCLOVIR 1 GRAM TABLET - GABAPENTIN 100 MG CAPSULE Regine Ivey APRN.METALLURGICAL ENGINEERING TECHNICIAN documented in this encounter [facility] 12-10-2024 Telephone encounter Note Patient viewed in [employer] Vidhya Robledo MA [facility] 12-10-2024 Miscellaneous Notes Patient viewed in [employer] Vidhya Robledo MA Please advise patient: You have tested positive for influenza A. Recommend supportive therapy at home. Outside of treatment window for Tamiflu. - Drink PLENTY of fluids (Gatorade/Pedialyte, tea) and get PLENTY of rest - Vaporizers, humidifiers, hot showers, and warm fluids help open respiratory and sinus passages (helps with cough and congestion) - Saline nose spray - Tylenol or ibuprofen as needed for fever and/or discomfort - Cover cough and wash hands frequently to prevent the spread of germs. Influenza can be spread through contact with respiratory secretions (through sneezing, coughing, talking, touching) or contaminated objects. You can be contagious from before your symptoms began and for several days after. -Stay home until fever free for 24 hours. documented in this encounter [facility] 12-10-2024 Telephone encounter Note Please advise patient: You have tested positive for influenza A. Recommend supportive therapy at home. Outside of treatment window for Tamiflu. - Drink PLENTY of fluids (Gatorade/Pedialyte, tea) and get PLENTY of rest - Vaporizers, humidifiers, hot showers, and warm fluids help open respiratory and sinus passages (helps with cough and congestion) - Saline nose spray - Tylenol or ibuprofen as needed for fever and/or discomfort - Cover cough and wash hands frequently to prevent the spread of germs. Influenza can be spread through contact with respiratory secretions (through sneezing, coughing, talking, touching) or contaminated objects. You can be contagious from before your symptoms began and for several days after. -Stay home until fever free for 24 hours. [facility] Work Phone: 12-09-2024 Note SARS-COV-2 (AGENT OF COVID-19) RNA: Not detected INFLUENZA A RNA: Detected INFLUENZA B RNA: Not detected RESPIRATORY SYNCYTIAL VIRUS (RSV) RNA: Not detected [facility] Comment on above: Performed By: #### [id number] ####[facility] LABCLIA [id number] [place] [address] [place] 12-09-2024 History of Present illness Narrative Radiology Service Progress Note PATIENT NAME: Lauryn Bang DATE OF SERVICE: December 09, 2024 TIME: 3:39 PM PATIENT IDENTITY VERIFICATION COMPLETED USING TWO (2) IDENTIFIERS: Name and Date of confirmed by patient verbally. FALL SCREENING: Has the patient had 2 falls in the last year or 1 fall with injury or currently using an Ambulatory Assistive Device (Walker, Cane, Wheelchair, Crutches, etc.)? No PATIENT GENDER DATA: Assigned female at . status: : No status: NO. PATIENT RELEVANT IMPLANT DATA REVIEWED: Yes PATIENT PRESENTS WITH AN IMPLANTABLE OR ATTACHED FLANGER: No RADIOLOGY DEPARTMENT: General X-ray: Exam(s) Completed: Chest X-Ray PERIPHERAL IV DATA: Not applicable SIGNED BY: RT Zina(R) December 09, 2024 3:39 PM documented in this encounter [facility] 12-09-2024 Note HNO ID: [id number] Author: MARIELA LUDWIG RT(R) Service: ? Author Type: Physical Metallurgist Type: Progress Notes Filed: 12/09/2024 15:46 Note Text: Radiology Service Progress Note PATIENT NAME: Lauryn Bang DATE OF SERVICE: December 09, 2024 TIME: 3:39 PM PATIENT IDENTITY VERIFICATION COMPLETED USING TWO (2) IDENTIFIERS: Name and Date of confirmed by patient verbally. FALL SCREENING: Has the patient had 2 falls in the last year or 1 fall with injury or currently using an Ambulatory Assistive Device (Walker, Cane, Wheelchair, Crutches, etc.)? No PATIENT GENDER DATA: Assigned female at . status: : No status: NO. PATIENT RELEVANT IMPLANT DATA REVIEWED: Yes PATIENT PRESENTS WITH AN IMPLANTABLE OR ATTACHED FLANGER: No RADIOLOGY DEPARTMENT: General X-ray: Exam(s) Completed: Chest X-Ray PERIPHERAL IV DATA: Not applicable SIGNED BY: RT Zina(R) December 09, 2024 3:39 PM [facility] 12-09-2024 Note HNO ID: [id number] Author: DINH BARKSDALE APRN.METALLURGICAL ENGINEERING TECHNICIAN Service: ? Author Type: Nurse Practitioner Type: Progress Notes Filed: 12/09/2024 16:10 Note Text: Subjective HPI Nontoxic-appearing 73-year-old female presents urgent care chief complaint cough nasal congestion fatigue. Duration of symptoms 4 days. Associated symptoms cough nasal congestion sore throat headache body aches chills fatigue. States last week she did have what she believes was a norovirus. States feeling better from that but still has some loose stools. Has having multiple loose stools a day. No blood in stool. Denies hemoptysis pleuritic pain or productive cough. Denies any high fevers. No OTC medications today. Past medical history prescription medications and allergies reviewed. .Patient presents with: Cough: Cough and congestion x 4 days and diarrhea x 1 week PAST MEDICAL HISTORY Diagnosis Date Acid reflux Benign neoplasm of colon Diaphragmatic hernia without mention of obstruction or gangrene takes tums Frequent UTI Dr. 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 Multiple thyroid nodules Pneumonia, viral Shingles Symptomatic menopausal or female climacteric states hot flashes, night sweats PAST SURGICAL HISTORY Procedure Laterality Date COLSC FLX W/RMVL OF TUMOR POLYP LESION SNARE TQ 06/04/2008 EXC LESION TDN SHTH/JT CAPSL HAND/FNGR Left 03/20/2019 Excision of left thumb ganglion cyst THYROID RIGHT FINE NEEDLE ASPIRATION Right 05/06/2024 UNSPECIFIED ORAL SURGERY PROCEDURE, BY REPORT [place] teeth extracted UNSPECIFIED ORAL SURGERY PROCEDURE, BY REPORT 12/2016 tooth extracted VAGINAL HYSTERECTOMY UTERUS 250 GM/< 07/29/2008 Hysterectomy, vaginal w/ cystocele repair, removed one ovary ALLERGIES Marcaine-Epinephrine [Bupivacaine-Epinephrine], Augmentin [Amoxicillin-Pot Clavulanate], Bactrim [Sulfamethoxazole], Doxycycline, Erythromycin, Meloxicam Submicronized, Prolia [Denosumab], and Rondec [Brompheniramine-Pseudoephedrin] MEDICATIONS ascorbic acid, vitamin C, (VITAMIN C) 500 mg tablet Take 500 mg by mouth once daily. metoprolol succinate ER (TOPROL XL) 25 mg 24 hr tablet Take 1 tablet by mouth once daily. CRANBERRY ORAL Take by mouth. multivitamin ORAL tablet Take 1 tablet by mouth once daily. FAMILY HISTORY Problem Relation Age of Onset Breast Cancer Mother CHF age of breast cancer 60's Breast Cancer Sister late 50's, Cancer Sister BRAIN age 70 Breast Cancer Maternal Grandmother Social History Tobacco Use Smoking status: Never Smokeless tobacco: Never Vaping Use Vaping status: Never Used Substance Use Topics Alcohol use: Yes Comment: Seldom Drug use: No BP 136/82 Pulse 73 Temp 37.6 ?C (99.7 ?F) (Tympanic) Resp 18 Wt 75.1 kg (165 lb 9.1 oz) SpO2 96% BMI 30.28 kg/m? Review of Systems Constitutional: Negative for chills, fever and malaise/fatigue. HENT: Positive for congestion and sore throat. Negative for ear discharge, ear pain and sinus pain. Eyes: Negative for blurred vision, pain, discharge and redness. Respiratory: Positive for cough. Negative for hemoptysis, sputum production, shortness of breath, wheezing and stridor. Cardiovascular: Negative for chest pain. Gastrointestinal: Positive for diarrhea. Negative for abdominal pain, nausea and vomiting. Musculoskeletal: Negative for myalgias. Skin: Negative for itching and rash. Neurological: Positive for headaches. Negative for dizziness. Objective Physical Exam Constitutional: General: She is not in acute distress. Appearance: She is not diaphoretic. HENT: Head: Normocephalic. Jaw: No trismus, tenderness, swelling or pain on movement. Right Ear: Tympanic membrane, ear canal and external ear normal. Left Ear: Tympanic membrane, ear canal and external ear normal. Nose: Congestion present. Mouth/Throat: Mouth: Mucous membranes are moist. Pharynx: Oropharynx is clear. Uvula midline. No pharyngeal swelling, oropharyngeal exudate, posterior oropharyngeal erythema or uvula swelling. Eyes: Conjunctiva/sclera: Conjunctivae normal. Pupils: Pupils are equal, round, and reactive to light. Cardiovascular: Rate and Rhythm: Normal rate and regular rhythm. Heart sounds: Normal heart sounds. Pulmonary: Effort: Pulmonary effort is normal. No tachypnea, accessory muscle usage or respiratory distress. Breath sounds: No stridor. Wheezing present. No rhonchi or rales. Abdominal: General: There is no distension. Palpations: Abdomen is soft. Tenderness: There is no abdominal tenderness. There is no guarding or rebound. Musculoskeletal: Cervical back: Normal range of motion and neck supple. No edema, erythema, rigidity or tenderness. No pain with movement. Normal range of motion. Lymphadenopathy: Cervical: No cervical adenopathy. Skin: General: Skin is warm and dry. (more content not included)... [facility] 12-09-2024 History of Present illness Narrative Subjective HPI Nontoxic-appearing 73-year-old female presents urgent care chief complaint cough nasal congestion fatigue. Duration of symptoms 4 days. Associated symptoms cough nasal congestion sore throat headache body aches chills fatigue. States last week she did have what she believes was a norovirus. States feeling better from that but still has some loose stools. Has having multiple loose stools a day. No blood in stool. Denies hemoptysis pleuritic pain or productive cough. Denies any high fevers. No OTC medications today. Past medical history prescription medications and allergies reviewed. .Patient presents with: Cough: Cough and congestion x 4 days and diarrhea x 1 week PAST MEDICAL HISTORY Diagnosis Date Acid reflux Benign neoplasm of colon Diaphragmatic hernia without mention of obstruction or gangrene takes tums Frequent UTI Dr. 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 Multiple thyroid nodules Pneumonia, viral Shingles Symptomatic menopausal or female climacteric states hot flashes, night sweats PAST SURGICAL HISTORY Procedure Laterality Date COLSC FLX W/RMVL OF TUMOR POLYP LESION SNARE TQ 06/04/2008 EXC LESION TDN SHTH/JT CAPSL HAND/FNGR Left 03/20/2019 Excision of left thumb ganglion cyst THYROID RIGHT FINE NEEDLE ASPIRATION Right 05/06/2024 UNSPECIFIED ORAL SURGERY PROCEDURE, BY REPORT [place] teeth extracted UNSPECIFIED ORAL SURGERY PROCEDURE, BY REPORT 12/2016 tooth extracted VAGINAL HYSTERECTOMY UTERUS 250 GM/< 07/29/2008 Hysterectomy, vaginal w/ cystocele repair, removed one ovary ALLERGIES Marcaine-Epinephrine [Bupivacaine-Epinephrine], Augmentin [Amoxicillin-Pot Clavulanate], Bactrim [Sulfamethoxazole], Doxycycline, Erythromycin, Meloxicam Submicronized, Prolia [Denosumab], and Rondec [Brompheniramine-Pseudoephedrin] MEDICATIONS ascorbic acid, vitamin C, (VITAMIN C) 500 mg tablet Take 500 mg by mouth once daily. metoprolol succinate ER (TOPROL XL) 25 mg 24 hr tablet Take 1 tablet by mouth once daily. CRANBERRY ORAL Take by mouth. multivitamin ORAL tablet Take 1 tablet by mouth once daily. FAMILY HISTORY Problem Relation Age of Onset Breast Cancer Mother CHF age of breast cancer 60's Breast Cancer Sister late 50's, Cancer Sister BRAIN age 70 Breast Cancer Maternal Grandmother Social History Tobacco Use Smoking status: Never Smokeless tobacco: Never Vaping Use Vaping status: Never Used Substance Use Topics Alcohol use: Yes Comment: Seldom Drug use: No BP 136/82 Pulse 73 Temp 37.6 C (99.7 F) (Tympanic) Resp 18 Wt 75.1 kg (165 lb 9.1 oz) SpO2 96% BMI 30.28 kg/m Review of Systems Constitutional: Negative for chills, fever and malaise/fatigue. HENT: Positive for congestion and sore throat. Negative for ear discharge, ear pain and sinus pain. Eyes: Negative for blurred vision, pain, discharge and redness. Respiratory: Positive for cough. Negative for hemoptysis, sputum production, shortness of breath, wheezing and stridor. Cardiovascular: Negative for chest pain. Gastrointestinal: Positive for diarrhea. Negative for abdominal pain, nausea and vomiting. Musculoskeletal: Negative for myalgias. Skin: Negative for itching and rash. Neurological: Positive for headaches. Negative for dizziness. Objective Physical Exam Constitutional: General: She is not in acute distress. Appearance: She is not diaphoretic. HENT: Head: Normocephalic. Jaw: No trismus, tenderness, swelling or pain on movement. Right Ear: Tympanic membrane, ear canal and external ear normal. Left Ear: Tympanic membrane, ear canal and external ear normal. Nose: Congestion present. Mouth/Throat: Mouth: Mucous membranes are moist. Pharynx: Oropharynx is clear. Uvula midline. No pharyngeal swelling, oropharyngeal exudate, posterior oropharyngeal erythema or uvula swelling. Eyes: Conjunctiva/sclera: Conjunctivae normal. Pupils: Pupils are equal, round, and reactive to light. Cardiovascular: Rate and Rhythm: Normal rate and regular rhythm. Heart sounds: Normal heart sounds. Pulmonary: Effort: Pulmonary effort is normal. No tachypnea, accessory muscle usage or respiratory distress. Breath sounds: No stridor. Wheezing present. No rhonchi or rales. Abdominal: General: There is no distension. Palpations: Abdomen is soft. Tenderness: There is no abdominal tenderness. There is no guarding or rebound. Musculoskeletal: Cervical back: Normal range of motion and neck supple. No edema, erythema, rigidity or tenderness. No pain with movement. Normal range of motion. Lymphadenopathy: Cervical: No cervical adenopathy. Skin: General: Skin is warm and dry. Neurological: Mental Status: She is alert and oriented to person, place, and time. ASSESSMENT/PLAN: 1. Acute cough - ICD9: 786.2, ICD10: R05.1 (primary diagnosis) - XR CHEST 2V FRONTAL/LAT 2. Viral illness - ICD9: 079.99, ICD10: B34.9 3. Diarrhea, unspecified type - ICD9: 787.91, ICD10: R19.7 - OVA + PARA MICROSCOPIC - CLOSTRIDIUM DIFFICILE TOXIN BY PCR - ENTERIC BACTERIAL PANEL BY PCR IMPRESSION: No acute radiographic abnormality. Patient nontoxic-appearing. No evidence of bacterial infection noted today's exam. suspicious of new viral illness. Will swab for COVID-19 and RSV influenza. Additionally stool studies ordered due to patient still having a to 10 loose stools a day this is day 8 for patient. Treat accordingly to test results. Patient was educated on supportive therapies. Patient will follow up with primary care provider as needed. Patient was instructed to immediately proceed to emergency room for any new, worsening, or symptoms lasting longer than anticipated. The patient's clinical presentation is otherwise unremarkable at this time. Based on exam and clinical finding, the patient is stable for discharge. Plan of care was discussed with patient. Patient verbalizes understanding and agrees to plan of care. This note was generated using [employer] software. It may contain errors in wording, punctuation, or spelling. Dinh Barksdale APRN.METALLURGICAL ENGINEERING TECHNICIAN documented in this encounter [facility] 12-06-2024 History of Present illness Narrative Radiology Service Progress Note PATIENT NAME: Lauryn Bang DATE OF SERVICE: December 06, 2024 TIME: 7:46 AM PATIENT IDENTITY VERIFICATION COMPLETED USING TWO (2) IDENTIFIERS: Name and Date of confirmed by patient verbally. FALL SCREENING: Has the patient had 2 falls in the last year or 1 fall with injury or currently using an Ambulatory Assistive Device (Walker, Cane, Wheelchair, Crutches, etc.)? No PATIENT GENDER DATA: Assigned female at . status: : No status: NO. PATIENT RELEVANT IMPLANT DATA REVIEWED: Not Applicable PATIENT PRESENTS WITH AN IMPLANTABLE OR ATTACHED FLANGER: No RADIOLOGY DEPARTMENT: Bone Density PERIPHERAL IV DATA: Not applicable SIGNED BY: RT Kathleen(R) December 06, 2024 7:46 AM documented in this encounter [facility] 12-06-2024 Note HNO ID: [id number] Author: JOSY LUGO RT(R) Service: ? Author Type: Technologist Type: Progress Notes Filed: 12/06/2024 07:56 Note Text: Radiology Service Progress Note PATIENT NAME: Lauryn Bang DATE OF SERVICE: December 06, 2024 TIME: 7:46 AM PATIENT IDENTITY VERIFICATION COMPLETED USING TWO (2) IDENTIFIERS: Name and Date of confirmed by patient verbally. FALL SCREENING: Has the patient had 2 falls in the last year or 1 fall with injury or currently using an Ambulatory Assistive Device (Walker, Cane, Wheelchair, Crutches, etc.)? No PATIENT GENDER DATA: Assigned female at . status: : No status: NO. PATIENT RELEVANT IMPLANT DATA REVIEWED: Not Applicable PATIENT PRESENTS WITH AN IMPLANTABLE OR ATTACHED FLANGER: No RADIOLOGY DEPARTMENT: Bone Density PERIPHERAL IV DATA: Not applicable SIGNED BY: RT Kathleen(Gonzalez) December 06, 2024 7:46 AM [facility] 11-30-2024 Telephone encounter Note Phoned patient went over results from Dr Bautista with understanding. [facility] 11-30-2024 Miscellaneous Notes Phoned patient went over results from Dr Bautista with understanding. ----- Message from Perry Bautista MD sent at 11/28/2024 2:28 PM EST ----- Normal labs. documented in this encounter [facility] 11-30-2024 Telephone encounter Note ----- Message from Perry Bautista MD sent at 11/28/2024 2:28 PM EST ----- Normal labs. [facility] 11-18-2024 Instructions Bety Iglesias MD - 11/18/2024 10:41 AM EST We will repeat an echocardiogram in early Oct documented in this encounter [facility] 11-18-2024 History of Present illness Narrative Images from the original note were not included. [facility] SE[facility]ARDIOLOGY Cardiology ([facility]) [address] [facility] [id number] OUTPATIENT VISIT DATE 11/18/2024 PRIMARY CARE PHYSICIAN: Ashlyn Keita [address] [place] [id number] REFERRING PHYSICIAN: Ashlyn Keita [address] [facility] [address] HISTORY OF PRESENT ILLNESS: Ms. Bang is a 73 year old woman with moderate to severe mitral regurgitation and palpitations who presents for routine follow-up. Since her last visit she has been doing well. She has not had shortness of breath or dyspnea on exertion. She has had rare palpitations and feels that they have improved since her last visit. She has not had symptoms concerning for congestive heart failure including PND, orthopnea, or lower extremity edema. PAST MEDICAL HISTORY Diagnosis Date Acid reflux Benign neoplasm of colon Diaphragmatic hernia without mention of obstruction or gangrene takes tums Frequent UTI Dr. 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 Multiple thyroid nodules Pneumonia, viral Shingles Symptomatic menopausal or female climacteric states hot flashes, night sweats PAST SURGICAL HISTORY Procedure Laterality Date COLSC FLX W/RMVL OF TUMOR POLYP LESION SNARE TQ 06/04/2008 EXC LESION TDN SHTH/JT CAPSL HAND/FNGR Left 03/20/2019 Excision of left thumb ganglion cyst THYROID RIGHT FINE NEEDLE ASPIRATION Right 05/06/2024 UNSPECIFIED ORAL SURGERY PROCEDURE, BY REPORT [place] teeth extracted UNSPECIFIED ORAL SURGERY PROCEDURE, BY REPORT 12/2016 tooth extracted VAGINAL HYSTERECTOMY UTERUS 250 GM/< 07/29/2008 Hysterectomy, vaginal w/ cystocele repair, removed one ovary SOCIAL HISTORY Social History Tobacco Use Smoking status: Never Smokeless tobacco: Never Vaping Use Vaping status: Never Used Substance Use Topics Alcohol use: Yes Comment: Seldom Drug use: No FAMILY HISTORY Problem Relation Age of Onset Breast Cancer Mother CHF age of breast cancer 60's Breast Cancer Sister late 50's, Cancer Sister BRAIN age 70 Breast Cancer Maternal Grandmother ALLERGIES: ALLERGIES Allergen Reactions Marcaine-Epinephrin* Shortness of Breath, Angioedema Tolerates Lidocaine/Epinephrine Augmentin [Amoxicil* Diarrhea Bactrim [Sulfametho* GI Upset Doxycycline Rash Erythromycin unknown Meloxicam Submicron* GI Upset Prolia [Denosumab] Unknown Leg aching Rondec [Bromphenira* Unknown MEDICATIONS: ascorbic acid, vitamin C, (VITAMIN C) 500 mg tablet Take 500 mg by mouth once daily. metoprolol succinate ER (TOPROL XL) 25 mg 24 hr tablet Take 1 tablet by mouth once daily. CRANBERRY ORAL Take by mouth. multivitamin ORAL tablet Take 1 tablet by mouth once daily. REVIEW OF SYSTEMS: Review of Systems Constitutional: Negative for chills, fever, malaise/fatigue and weight loss. HENT: Negative for hearing loss and sore throat. Eyes: Negative for blurred vision and double vision. Respiratory: Negative. Cardiovascular: Negative for chest pain and palpitations. Gastrointestinal: Negative. Genitourinary: Negative for dysuria, frequency, hematuria and urgency. Musculoskeletal: Negative. Skin: Negative. Neurological: Negative for dizziness, seizures, loss of consciousness, weakness and headaches. Endo/Heme/Allergies: Negative for environmental allergies. Does not bruise/bleed easily. Psychiatric/Behavioral: Negative for depression. PHYSICAL EXAMINATION: BP 126/72 Pulse 71 Resp 12 Ht 5' 2 (1.58m) Wt 160 lb (72.6kg) SpO2 98% BMI 29.26 kg/(m^2). General: Very pleasant woman sitting appears comfortable no apparent distress she is alert and oriented x3 HEENT: Carotid upstrokes are brisk bilaterally without bruits no JVD appreciated. Pulmonary: Lungs are clear no rales, wheezes, rhonchi Cardiovascular: Normal S1, S2 with regular rate and rhythm. There is a late systolic murmur best heard at the apex rated 3/6 Extremities: Warm, well-perfused, no lower extremity edema. 2+ distal pulses CARDIOVASCULAR MEDICINE TESTING: Echocardiogram 07/19/2024: - The left ventricle is mildly dilated. Left ventricular systolic function is normal. EF = 56 5% (2D biplane) Left ventricular diastolic function was not evaluated due to >2+ MR. - The right ventricle is normal in size. Right ventricular systolic function is normal. - The left atrial cavity is severely dilated. 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 Regurgitant orifice area (PISA) is 0.28 cm . Echocardiogram 07/11/2023: - The left ventricle is normal in size. Left ventricular systolic function is normal. EF = 54 5% (2D biplane) Left ventricular diastolic function was not evaluated due to >2+ MR. - The right ventricle is normal in size. Right ventricular systolic function is normal. - The left atrial cavity is severely dilated. 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 Regurgitant orifice area (PISA) is 0.33 cm . Bileaflet prolapse posterior >> anterior. - Exam was compared with the prior echocardiographic exam performed on 10/25/2010. Echocardiogram 10/25/2010: CONCLUSIONS: - The left ventricle is normal in size. Left ventricular systolic function is low normal. EF = 50 % - The right ventricle is normal in size. Right ventricular systolic function is normal. - Normal diastolic function. - Mild LAE. - Mild bi-leaflet prolapse with 2+ MR. Mildly thickened leaflets. - 1+ TR. RVSP 26mmHg. - Mild aortic sclerosis with no AI. - Trivial PI. - There is no previous echo for comparison. Zio monitor 07/03-07/17/2023: Patient had a min HR of 59 bpm, max HR of 200 bpm, and avg HR of 85 bpm. Predominant underlying rhythm was Sinus Rhythm. 6 Ventricular Tachycardia runs occurred, the run with the fastest interval lasting 19 beats with a max rate of 200 bpm (avg 156 bpm); the run with the fastest interval was also the longest. 15 Supraventricular Tachycardia runs occurred, the run with the fastest interval lasting 4 beats with a max rate of 171 bpm, the longest lasting 15 beats with an avg rate of 132 bpm. Ventricular Tachycardia and Supraventricular Tachycardia were detected within +/- 45 seconds of symptomatic patient event(s). Isolated SVEs were rare (<1.0%), SVE Couplets were rare (<1.0%), and SVE Triplets were rare (<1.0%). Isolated VEs were occasional (4.7%, [id number]), VE Couplets were rare (<1.0%, 31), and VE Triplets were rare (<1.0%, 2). Ventricular Trigeminy was present. IMPRESSION: Ms. Bang is a 73 year old woman with a history of mitral valve prolapse with moderately severe mitral regurgitation and palpitations who presents for routine follow-up PLAN AND RECOMMENDATIONS: 1. Nonrheumatic mitral valve regurgitation - ICD9: 424.0, ICD10: I34.0 (primary diagnosis) Recent echocardiogram July 2024 was reviewed with the patient during the office visit. Plan to repeat her echocardiogram in July before next office visit. Discussed potential worsening symptoms of fatigue or dyspnea on exertion. Patient will contact the office if there is any change in symptomatology. - ECHO - PERFLUTREN LIPID MICROSPHERES 1.1 MG/ML INJECTION IN NS 10 ML - SODIUM CHLORIDE 0.9 % (FLUSH) INJECTION SYRINGE 2. Palpitations - ICD9: 785.1, ICD10: R00.2 Patient at risk for atrial fibrillation. Discussed with her in detail. Bety Iglesias MD documented in this encounter [facility] 11-18-2024 Note HNO ID: [id number] Author: BETY IGLESIAS MD Service: ? Author Type: Physician Type: Progress Notes Filed: 11/18/2024 10:48 Note Text: [facility] Cardiology ([address]) [address] [facility] [id number] OUTPATIENT VISIT DATE 11/18/2024 PRIMARY CARE PHYSICIAN: Ashlyn Keita [address] [place] [address] REFERRING PHYSICIAN: Ashlyn Gundersonlogchloé [address] [place] [address] HISTORY OF PRESENT ILLNESS: Ms. Bang is a 73 year old woman with moderate to severe mitral regurgitation and palpitations who presents for routine follow-up. Since her last visit she has been doing well. She has not had shortness of breath or dyspnea on exertion. She has had rare palpitations and feels that they have improved since her last visit. She has not had symptoms concerning for congestive heart failure including PND, orthopnea, or lower extremity edema. PAST MEDICAL HISTORY Diagnosis Date Acid reflux Benign neoplasm of colon Diaphragmatic hernia without mention of obstruction or gangrene takes tums Frequent UTI Dr. 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 Multiple thyroid nodules Pneumonia, viral Shingles Symptomatic menopausal or female climacteric states hot flashes, night sweats PAST SURGICAL HISTORY Procedure Laterality Date COLSC FLX W/RMVL OF TUMOR POLYP LESION SNARE TQ 06/04/2008 EXC LESION TDN SHTH/JT CAPSL HAND/FNGR Left 03/20/2019 Excision of left thumb ganglion cyst THYROID RIGHT FINE NEEDLE ASPIRATION Right 05/06/2024 UNSPECIFIED ORAL SURGERY PROCEDURE, BY REPORT [place] teeth extracted UNSPECIFIED ORAL SURGERY PROCEDURE, BY REPORT 12/2016 tooth extracted VAGINAL HYSTERECTOMY UTERUS 250 GM/< 07/29/2008 Hysterectomy, vaginal w/ cystocele repair, removed one ovary SOCIAL HISTORY Social History Tobacco Use Smoking status: Never Smokeless tobacco: Never Vaping Use Vaping status: Never Used Substance Use Topics Alcohol use: Yes Comment: Seldom Drug use: No FAMILY HISTORY Problem Relation Age of Onset Breast Cancer Mother CHF age of breast cancer 60's Breast Cancer Sister late 50's, Cancer Sister BRAIN age 70 Breast Cancer Maternal Grandmother ALLERGIES: ALLERGIES Allergen Reactions Marcaine-Epinephrin* Shortness of Breath, Angioedema Tolerates Lidocaine/Epinephrine Augmentin [Amoxicil* Diarrhea Bactrim [Sulfametho* GI Upset Doxycycline Rash Erythromycin unknown Meloxicam Submicron* GI Upset Prolia [Denosumab] Unknown Leg aching Rondec [Bromphenira* Unknown MEDICATIONS: ascorbic acid, vitamin C, (VITAMIN C) 500 mg tablet Take 500 mg by mouth once daily. metoprolol succinate ER (TOPROL XL) 25 mg 24 hr tablet Take 1 tablet by mouth once daily. CRANBERRY ORAL Take by mouth. multivitamin ORAL tablet Take 1 tablet by mouth once daily. REVIEW OF SYSTEMS: Review of Systems Constitutional: Negative for chills, fever, malaise/fatigue and weight loss. HENT: Negative for hearing loss and sore throat. Eyes: Negative for blurred vision and double vision. Respiratory: Negative. Cardiovascular: Negative for chest pain and palpitations. Gastrointestinal: Negative. Genitourinary: Negative for dysuria, frequency, hematuria and urgency. Musculoskeletal: Negative. Skin: Negative. Neurological: Negative for dizziness, seizures, loss of consciousness, weakness and headaches. Endo/Heme/Allergies: Negative for environmental allergies. Does not bruise/bleed easily. Psychiatric/Behavioral: Negative for depression. PHYSICAL EXAMINATION: BP 126/72 Pulse 71 Resp 12 Ht 5' 2 (1.58m) Wt 160 lb (72.6kg) SpO2 98% BMI 29.26 kg/(m2). General: Very pleasant woman sitting appears comfortable no apparent distress she is alert and oriented x3 HEENT: Carotid upstrokes are brisk bilaterally without bruits no JVD appreciated. Pulmonary: Lungs are clear no rales, wheezes, rhonchi Cardiovascular: Normal S1, S2 with regular rate and rhythm. There is a late systolic murmur best heard at the apex rated 3/6 Extremities: Warm, well-perfused, no lower extremity edema. 2+ distal pulses CARDIOVASCULAR MEDICINE TESTING: Echocardiogram 07/19/2024: - The left ventricle is mildly dilated. Left ventricular systolic function is normal. EF = 56 ? 5% (2D biplane) Left ventricular diastolic function was not evaluated due to >2+ MR. - The right ventricle is normal in size. Right ventricular systolic function is normal. - The left atrial cavity is severely dilated. 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 Regurgitant orifice area (PISA) is 0.28 cm?. Echocardiogram 07/11/2023: - The left ventricle is normal in s (more content not included)... [facility] 11-13-2024 Telephone encounter Note Patient telephoned and made aware of results and recommendations below. Voices understanding. Adamaris Goetz LPN [facility] 11-13-2024 Miscellaneous Notes Patient telephoned and made aware of results and recommendations below. Voices understanding. Adamaris Goetz LPN Calcium and potassium slightly elevated. This may be lab error however I would like her to have this recheck in the next couple of weeks. The rest of her blood work is in acceptable ranges. Ashlyn Keita APRN.AYAH documented in this encounter [facility] 11-13-2024 Telephone encounter Note Calcium and potassium slightly elevated. This may be lab error however I would like her to have this recheck in the next couple of weeks. The rest of her blood work is in acceptable ranges. Ashlyn Keita APRN.METALLURGICAL ENGINEERING TECHNICIAN [facility] 11-12-2024 History of Present illness Narrative Images from the original note were not included. Lauryn Bang is a 73 year old female here for a Medicare wellness visit. Medicare Health Risk Assessment General Health Very good Exercise: Minutes/Day 90 min Exercise: Days/Week 3 days Alcohol: Daily Use Monthly or less Alcohol: Drinks/Day 1 or 2 Alcohol: 6 or more drinks Never Feel off balance No Concerns: Teeth/Dentures No Concerns: Sexual function No Troubled by feelings None of the above Frequency: Eating healthy diet Nearly every day ADLs requiring help None of the above Safety precautions in home/vehicle Smoke, vape, chews tobacco No Difficulty hearing No Difficulty seeing No Current Providers Specialists: I have reviewed specialist-related care of the patient in the medical record. Current care team: Patient Care Team: Perry Bautista MD as PCP - General (Family Medicine) Ashlyn Keita APRN.CNP as [employer] (Family Medicine) Dr. Iglesias ( cardiology) Sheela Perez ( urology) Medical/Family history review Reviewed and updated problem list, medical/surgical/family/social history, medications, and allergies. Opioid use review Opioid Medications (last 90 days) No data to display Anxiety/Depression screening PHQ-9 Score: 2 (Minimal Depression) IRINA-7 Score: 1 (Minimal Anxiety) Recommendation: no further intervention at this time Cognitive screening Cognitive screening reviewed and No further action needed (score 3-5). Functional Observation Was the patient's Timed Up & Go test unsteady or >= 12 seconds? No Advance Care Planning Surrogate decision maker and/or advance care plan documented Measurements Pulse 64 Resp 18 Ht 160 cm (5' 2.99) Wt 73.2 kg (161 lb 6 oz) SpO2 94% BMI 28.59 kg/m Vision Screening: Follows with optometry/ophthalmology Right: 20/25 Left: 20/ 25 Both: 20/50 ASSESSMENT/PLAN: 1. Medicare annual wellness visit, subsequent - ICD9: V70.0, ICD10: Z00.00 (primary diagnosis) - Counseled on healthy diet and regular exercise - Bone mineral density ordered - Follow up for annual exam in one year - COMPLETE BLOOD COUNT AND DIFFERENTIAL - COMPREHENSIVE METABOLIC PANEL - LIPID PANEL, NONFASTING 2. Osteoporosis, unspecified osteoporosis type, unspecified pathological fracture presence - ICD9: 733.00, ICD10: M81.0 - Reviewed the need for Calcium and Vitamin D supplements and weight bearing exercise as tolerated - DXA-AXIAL SKELETON Ashlyn Keita APRN.CNP Prescription instructions reviewed with patient as applicable. Patient advised if symptoms do not improve or if symptoms worsen sooner, to contact their primary care physician. Potential red flag symptoms discussed with the patient. Reviewed appropriate action plan to take if red flag symptoms occur. Patient agreeable to treatment plan. documented in this encounter [facility] 11-12-2024 Note HNO ID: [id number] Author: ASHLYN KEITA APRN.CNP Service: ? Author Type: Nurse Practitioner Type: Progress Notes Filed: 11/12/2024 11:33 Note Text: Lauryn Bang is a 73 year old female here for a Medicare wellness visit. Medicare Health Risk Assessment General Health Very good Exercise: Minutes/Day 90 min Exercise: Days/Week 3 days Alcohol: Daily Use Monthly or less Alcohol: Drinks/Day 1 or 2 Alcohol: 6 or more drinks Never Feel off balance No Concerns: Teeth/Dentures No Concerns: Sexual function No Troubled by feelings None of the above Frequency: Eating healthy diet Nearly every day ADLs requiring help None of the above Safety precautions in home/vehicle Smoke, vape, chews tobacco No Difficulty hearing No Difficulty seeing No Current Providers Specialists: I have reviewed specialist-related care of the patient in the medical record. Current care team: Patient Care Team: Perry Bautista MD as PCP - General (Family Medicine) [employer]log[employer], NEPTALI Goldberg.AYAH as [employer] (Family Medicine) Dr. Iglesias ( cardiology) Sheela Perez ( urology) Medical/Family history review Reviewed and updated problem list, medical/surgical/family/social history, medications, and allergies. Opioid use review Opioid Medications (last 90 days) No data to display Anxiety/Depression screening PHQ-9 Score: 2 (Minimal Depression) IRINA-7 Score: 1 (Minimal Anxiety) Recommendation: no further intervention at this time Cognitive screening Cognitive screening reviewed and No further action needed (score 3-5). Functional Observation Was the patient's Timed Up AND Go test unsteady or >= 12 seconds? No Advance Care Planning Surrogate decision maker and/or advance care plan documented Measurements Pulse 64 Resp 18 Ht 160 cm (5' 2.99) Wt 73.2 kg (161 lb 6 oz) SpO2 94% BMI 28.59 kg/m? Vision Screening: Follows with optometry/ophthalmology Right: 20/25 Left: 20/ 25 Both: 20/50 ASSESSMENT/PLAN: 1. Medicare annual wellness visit, subsequent - ICD9: V70.0, ICD10: Z00.00 (primary diagnosis) - Counseled on healthy diet and regular exercise - Bone mineral density ordered - Follow up for annual exam in one year - COMPLETE BLOOD COUNT AND DIFFERENTIAL - COMPREHENSIVE METABOLIC PANEL - LIPID PANEL, NONFASTING 2. Osteoporosis, unspecified osteoporosis type, unspecified pathological fracture presence - ICD9: 733.00, ICD10: M81.0 - Reviewed the need for Calcium and Vitamin D supplements and weight bearing exercise as tolerated - DXA-AXIAL SKELETON Ashlyn Keita APRN.CNP Prescription instructions reviewed with patient as applicable. Patient advised if symptoms do not improve or if symptoms worsen sooner, to contact their primary care physician. Potential red flag symptoms discussed with the patient. Reviewed appropriate action plan to take if red flag symptoms occur. Patient agreeable to treatment plan. [facility] 11-12-2024 Instructions Ashlyn Keita APRN.CNP - 11/12/2024 10:53 AM EST Should be taking Calcium 1200 mg and Vitamin D 2000 units daily BONE MINERAL DENSITY PATIENT INSTRUCTIONS ======== Bone mineral density testing measures the amount of calcium in certain parts of your bones. This information determines how strong your bones are. The test is used to detect osteoporosis, a disease in which the bone's mineral content and density are low, increasing a person's risk of fractures. The lumbar spine (lower back) and the hip are the skeletal sites usually examined. For the test, remember that: 1. You cannot take this test if you are . 2. Eat a normal diet on the day of the test. 3. Take your medications as you normally would. 4. DO NOT take calcium supplements (such as Tums) for 24 hours before the test. 5. On the day of the test, leave valuables (jewelry or credit cards) at home. 6. The test should be performed prior to oral, rectal or IV contrast studies, or at least 7 days after any of these studies. For the test, you may be asked to wear a hospital gown. You will lie on your back, on a padded table, in a comfortable position. Generally, you can resume your usual activities immediately. documented in this encounter [facility] 11-11-2024 Telephone encounter Note Pt notified of results via [employer]. Nori Valenzuela Ma [facility] 11-11-2024 Miscellaneous Notes Pt notified of results via [employer]. Nori Valenzuela Ma ----- Message from Perry Bautista MD sent at 11/10/2024 2:14 PM EST ----- Negative mammogram. Repeat in 1 year. documented in this encounter [facility] 11-11-2024 Telephone encounter Note ----- Message from Perry Bautista MD sent at 11/10/2024 2:14 PM EST ----- Negative mammogram. Repeat in 1 year. [facility] 11-08-2024 History of Present illness Narrative Radiology Service Progress Note PATIENT NAME: Lauryn Bang DATE OF SERVICE: November 08, 2024 TIME: 11:17 AM PATIENT IDENTITY VERIFICATION COMPLETED USING TWO (2) IDENTIFIERS: Name and Date of confirmed by patient verbally. FALL SCREENING: Has the patient had 2 falls in the last year or 1 fall with injury or currently using an Ambulatory Assistive Device (Walker, Cane, Wheelchair, Crutches, etc.)? No PATIENT GENDER DATA: Assigned female at . status: : No status: NO. PATIENT RELEVANT IMPLANT DATA REVIEWED: Not Applicable PATIENT PRESENTS WITH AN IMPLANTABLE OR ATTACHED FLANGER: No RADIOLOGY DEPARTMENT: Mammography PERIPHERAL IV DATA: Not applicable SIGNED BY: Lali Anders November 08, 2024 11:17 AM documented in this encounter [facility] 11-08-2024 Note HNO ID: [id number] Author: CANDY BHATT Mammo Tech Service: ? Author Type: Physical Metallurgist Type: Progress Notes Filed: 11/08/2024 11:19 Note Text: Radiology Service Progress Note PATIENT NAME: Lauryn Bang DATE OF SERVICE: November 08, 2024 TIME: 11:17 AM PATIENT IDENTITY VERIFICATION COMPLETED USING TWO (2) IDENTIFIERS: Name and Date of confirmed by patient verbally. FALL SCREENING: Has the patient had 2 falls in the last year or 1 fall with injury or currently using an Ambulatory Assistive Device (Walker, Cane, Wheelchair, Crutches, etc.)? No PATIENT GENDER DATA: Assigned female at . status: : No status: NO. PATIENT RELEVANT IMPLANT DATA REVIEWED: Not Applicable PATIENT PRESENTS WITH AN IMPLANTABLE OR ATTACHED FLANGER: No RADIOLOGY DEPARTMENT: Mammography PERIPHERAL IV DATA: Not applicable SIGNED BY: Lali Anders November 08, 2024 11:17 AM [facility] 10-15-2024 Telephone encounter Note Phoned patient went over notes below from Dr Bautista with understanding. [facility] 10-15-2024 Miscellaneous Notes Phoned patient went over notes below from Dr Bautista with understanding. Based on her reported symptoms and length of illness, I would not treat her for sinus infection at this time. I would have her continue supportive care as discussed in EC and f/u in 1 week if not improving. May use OTC flonase, nasal saline rinses, or neti pot for nasal congestion and runny nose. Pt reports she was seen in yesterday and did a viral panel which came back neg. Pt reports she has had sx x 6 days and today feels worse than she had been feeling. Pt reports a lot of nasal congestion with yellow mucus, sinus pressure, body fatigue, cough. The difference between yesterday and today is the sinus pressure, yellow mucus and body fatigue. Pt denies fever. Pt now feels she may have a sinus infection which was discussed with provider. Pt was advised to f/u with pcp as needed. Pt is asking if a Z-karen could be ordered for her. Pt reports she has no energy to come back for appt or virtual. Please review and advise. Ayanna Borjas LPN documented in this encounter [facility] 10-15-2024 Telephone encounter Note Based on her reported symptoms and length of illness, I would not treat her for sinus infection at this time. I would have her continue supportive care as discussed in EC and f/u in 1 week if not improving. May use OTC flonase, nasal saline rinses, or neti pot for nasal congestion and runny nose. [facility] Work Phone: 10-15-2024 Telephone encounter Note Pt reports she was seen in [facility] yesterday and did a viral panel which came back neg. Pt reports she has had sx x 6 days and today feels worse than she had been feeling. Pt reports a lot of nasal congestion with yellow mucus, sinus pressure, body fatigue, cough. The difference between yesterday and today is the sinus pressure, yellow mucus and body fatigue. Pt denies fever. Pt now feels she may have a sinus infection which was discussed with provider. Pt was advised to f/u with pcp as needed. Pt is asking if a Z-karen could be ordered for her. Pt reports she has no energy to come back for appt or virtual. Please review and advise. Ayanna Borjas LPN [facility] 10-15-2024 Note Patient Outreach (IN [facility]) LAURYN BANG ([id number]) 1950 F Date Time Provider Department 10/15/24 PERRY BAUTISTA During your visit today, we recorded the following information about you: Allergies As of Date: 10/15/2024 Noted Allergy Reaction MARCAINE-EPINEPHRINE (BUPIVACAINE*07/11/2023 12 - Shortness of Breath 18 - Angioedema Comments: Tolerates Lidocaine/Epinephrine AUGMENTIN (AMOXICILLIN-POT CLAVUL*06/20/2005 6 - Diarrhea BACTRIM (SULFAMETHOXAZOLE) 12/13/2012 8 - GI Upset DOXYCYCLINE 02/25/2015 2 - Rash ERYTHROMYCIN 03/31/2008 Comments: unknown MELOXICAM SUBMICRONIZED 11/17/2022 8 - GI Upset RONDEC (BROMPHENIRAMINE-PSEUDOEPH*2007 16 - Unknown Comments: Date Reviewed: 10/14/2024 Reviewed by: Rojas Kelly APRN.METALLURGICAL ENGINEERING TECHNICIAN - Fully Assessed Visit Diagnosis:Encounter for screening mammogram for breast cancer [Z12.31] Order(s):[facility] SCREENING [facility] G[facility]LUCA [[id number]] Order #: [id number] FUTURE Prescriptions as of 10/18/2024 - metoprolol succinate ER (TOPROL XL) 25 mg 24 hr tablet Take 1 tablet by mouth once daily. - CRANBERRY ORAL Take by mouth. - estradiol 0.01 % (0.1 mg/g) vaginal cream Apply pea-sized amount to urethral opening twice a week. - multivitamin ORAL tablet Take 1 tablet by mouth once daily. 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.2] 10/20/2010 Eczematous dermatitis [L30.9] 04/21/2012 Contact dermatitis and other eczema, due to uns*04/21/2012 Pruritus [L29.9] 04/21/2012 Urticaria [L50.9] 04/21/2012 Rash and other nonspecific skin eruption [R21] 04/21/2012 05/07/2024 Ganglion cyst [M67.40] 03/11/2019 Enlarged thyroid gland [E04.9] 10/10/2019 Multiple thyroid nodules [E04.2] 10/10/2019 Lumbar pain [M54.50] 10/21/2022 Left hip pain [M25.552] 10/21/2022 Palpitations [R00.2] 07/03/2023 Nonrheumatic mitral valve regurgitation [I34.0] 07/03/2023 Other chest pain [R07.89] 07/03/2023 Encounter for screening for malignant neoplasm *12/07/2023 Encounter Status:Closed by [facility], PRODUSER on 10/18/24 [facility] 10-14-2024 Note HNO ID: [id number] Author: ROJAS KELLY APRN.METALLURGICAL ENGINEERING TECHNICIAN Service: ? Author Type: Nurse Practitioner Type: Progress Notes Filed: 10/14/2024 15:45 Note Text: This note was created using [email or web address]. Subjective Lauryn Bang is a 73 year old female. HPI For the last five days pt has had runny nose with thick bloody mucous. She does note a previous history of sinus infections but states that this does not feel similar to those. She denies any chest congestion. Review of Systems Constitutional: Positive for fever. HENT: Positive for congestion, postnasal drip, sinus pressure and sinus pain. Respiratory: Positive for cough. Objective BP 100/74 Pulse 90 Temp 37.4 ?C (99.3 ?F) Resp 19 Wt 75.2 kg (165 lb 12.6 oz) SpO2 95% BMI 28.46 kg/m? Physical Exam Vitals and nursing note reviewed. Constitutional: General: She is not in acute distress. Appearance: Normal appearance. She is not ill-appearing. HENT: Head: Normocephalic. Mouth/Throat: Mouth: Mucous membranes are moist. Eyes: Conjunctiva/sclera: Conjunctivae normal. Cardiovascular: Rate and Rhythm: Normal rate and regular rhythm. Pulmonary: Effort: Pulmonary effort is normal. Breath sounds: Normal breath sounds. Musculoskeletal: General: Normal range of motion. Cervical back: Normal range of motion. Skin: General: Skin is warm and dry. Neurological: General: No focal deficit present. Mental Status: She is alert. Psychiatric: Mood and Affect: Mood normal. Behavior: Behavior normal. Assessment and Plan ASSESSMENT/PLAN: 1. Nasal congestion - ICD9: 478.19, ICD10: R09.81 Discussion patient does not feel as though she is developing a sinus infection. We did discuss possible chest x-ray but she denies feeling any congestion in her chest. She would be interested in being tested for influenza and COVID however as she has already had 5 days of symptoms she is not a candidate for treatment of either. Will continue to use [id number] cough and cold medications and follow-up with PCP as needed. - COVID AND INFLUENZA A/B AND RSV PCR, ROUTINE Rojas Kelly APRN.[facility] 10-14-2024 History of Present illness Narrative This note was created using [employer]. Subjective Lauryn Bang is a 73 year old female. HPI For the last five days pt has had runny nose with thick bloody mucous. She does note a previous history of sinus infections but states that this does not feel similar to those. She denies any chest congestion. Review of Systems Constitutional: Positive for fever. HENT: Positive for congestion, postnasal drip, sinus pressure and sinus pain. Respiratory: Positive for cough. Objective BP 100/74 Pulse 90 Temp 37.4 C (99.3 F) Resp 19 Wt 75.2 kg (165 lb 12.6 oz) SpO2 95% BMI 28.46 kg/m Physical Exam Vitals and nursing note reviewed. Constitutional: General: She is not in acute distress. Appearance: Normal appearance. She is not ill-appearing. HENT: Head: Normocephalic. Mouth/Throat: Mouth: Mucous membranes are moist. Eyes: Conjunctiva/sclera: Conjunctivae normal. Cardiovascular: Rate and Rhythm: Normal rate and regular rhythm. Pulmonary: Effort: Pulmonary effort is normal. Breath sounds: Normal breath sounds. Musculoskeletal: General: Normal range of motion. Cervical back: Normal range of motion. Skin: General: Skin is warm and dry. Neurological: General: No focal deficit present. Mental Status: She is alert. Psychiatric: Mood and Affect: Mood normal. Behavior: Behavior normal. Assessment and Plan ASSESSMENT/PLAN: 1. Nasal congestion - ICD9: 478.19, ICD10: R09.81 Discussion patient does not feel as though she is developing a sinus infection. We did discuss possible chest x-ray but she denies feeling any congestion in her chest. She would be interested in being tested for influenza and COVID however as she has already had 5 days of symptoms she is not a candidate for treatment of either. Will continue to use [id number] cough and cold medications and follow-up with PCP as needed. - COVID & INFLUENZA A/B & RSV PCR, ROUTINE Rojas Kelly APRN.[employer] TECHNICIAN documented in this encounter [facility] 06-24-2024 History of Present illness Narrative VIRTUAL VISIT PROGRESS NOTE This is a virtual visit using [employer] Video Visit. It required patient-provider interaction for the medical decision making as documented below. I have communicated my name and active licensure. The patient's identity and physical location were verified at the time of this visit. Either the patient or their legal dairy supplies sales representative has been informed of the risks and benefits of -- and alternatives to -- treatment through a remote evaluation and consents to proceed with the evaluation remotely. Lauryn Bang is a 73 year old female seen for follow-up, [facility] 05/07/24. Last visit, she was prescribed a prednisone burst with taper and advised to schedule Fexofenadine 180 mg twice daily and Pepcid 20 mg twice daily. Since last visit, symptoms have completely resolved. She was able to stop Lila, and Pepcid with no worsening of symptoms. She did have significant GERD with Prednisone use- she started Prilosec which helped significantly UAS 0 As per prior HPI: Urticaria Symptoms started 04/23/24- started as an erythematous rash. She started using Eucerin cream with no improvement-> Benadryl topical relief (helped) Rash occurred every evening- typically worse along underwear line and along bra line She tried Vagisil and Lotrimin which did help initially but then she broke out into hives She stopped Lotrimin and restarted benadryl cream Triggers include warm shower Saw Urgent Care- prescribed Triamcinolone, Fluconazole, swab then returned with bacterial vaginosis- currently taking Flagyl Went to the ER this morning, she was given Prednisone 40mg and Benadryl Possible prolonged time in heat No angioedema No prior hx of hives Has not had any recent courses of associated illness, antibiotics, NSAID, ACEI use, herbal supplements. HISTORY REVIEWED (electronic chart updated): PAST MEDICAL HISTORY Diagnosis Date Acid reflux Benign neoplasm of colon Diaphragmatic hernia without mention of obstruction or gangrene takes tums Frequent UTI Dr. 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 Multiple thyroid nodules Pneumonia, viral Shingles Symptomatic menopausal or female climacteric states hot flashes, night sweats PAST SURGICAL HISTORY Procedure Laterality Date COLSC FLX W/RMVL OF TUMOR POLYP LESION SNARE TQ 06/04/2008 EXC LESION TDN SHTH/JT CAPSL HAND/FNGR Left 03/20/2019 Excision of left thumb ganglion cyst THYROID RIGHT FINE NEEDLE ASPIRATION Right 05/06/2024 UNSPECIFIED ORAL SURGERY PROCEDURE, BY REPORT [place] teeth extracted UNSPECIFIED ORAL SURGERY PROCEDURE, BY REPORT 12/2016 tooth extracted VAGINAL HYSTERECTOMY UTERUS 250 GM/< 07/29/2008 Hysterectomy, vaginal w/ cystocele repair, removed one ovary FAMILY HISTORY Problem Relation Age of Onset Breast Cancer Mother CHF age of breast cancer 60's Breast Cancer Sister late 50's, Cancer Sister BRAIN age 70 Breast Cancer Maternal Grandmother Social History Tobacco Use Smoking status: Never Smokeless tobacco: Never Vaping Use Vaping status: Never Used Substance Use Topics Alcohol use: Yes Comment: Seldom Drug use: No Current Outpatient Medications Medication Sig metoprolol succinate ER (TOPROL XL) 25 mg 24 hr tablet Take 1 tablet by mouth once daily. CRANBERRY ORAL Take by mouth. estradiol 0.01 % (0.1 mg/g) vaginal cream Apply pea-sized amount to urethral opening twice a week. multivitamin ORAL tablet Take 1 tablet by mouth once daily. No current facility-administered medications for this visit. ALLERGIES Allergen Reactions Marcaine-Epinephrin* Shortness of Breath, Angioedema Tolerates Lidocaine/Epinephrine Augmentin [Amoxicil* Diarrhea Bactrim [Sulfametho* GI Upset Doxycycline Rash Erythromycin unknown Meloxicam Submicron* GI Upset Rondec [Bromphenira* Unknown REVIEW OF SYSTEMS: Constitutional: No fevers, chills, fatigue, weight loss/gain, decreased appetite. Eyes: No itchy, red or watery eyes. No discharge. No vision changes. Ears/Nose/Throat: No rhinorrhea, nasal congestion, sinus pressure. Respiratory: No shortness of breath, cough, wheezing. Cardiac/Vascular: No chest pain, palpitations, fainting. GI: No abdominal pain, nausea, vomiting, diarrhea, blood in stool. : No dysuria, hematuria. Musculoskeletal: No pain, joint swelling. Skin: +as per HPI Neurologic: No headaches, numbness, tingling, weakness, dizziness, LOC. Psychiatric: No sadness, depression, thoughts of harming self. Endocrine: No polydipsia, polyuria, hot flashes. Hematology/Lymphatics: No abnormal swelling, immunocompromise, bleeding/bruising. Allergy/Immunology: +as per HPI PHYSICAL EXAMINATION: VIDEO EXAM: (if completed, performed via video enabled technology) GENERAL: alert and appropriate, in no distress, well-hydrated, well nourished, and happy, smiling, interactive SKIN: no rash noted HEAD: normocephalic, no abnormality or lesion noted EYES: no injection and visual acuity is grossly normal NOSE: external nose normal without rhinorrhea OROPHARYNX: moist mucus membranes RESPIRATORY: breathing non-labored CHEST: equal chest rise with normal respiratory effort ASSESSMENT/PLAN: Acute urticaria (primary encounter diagnosis) Comment: Resolved Plan: - If hives recur, advised to restart Fexofenadine 180mg twice daily and Pepcid 20mg twice daily and to contact office - If Prednisone required in the future, will need to start PPI Katerine Rizo MD documented in this encounter [facility] 05-30-2024 Telephone encounter Note Patient called in. Message below given from Dr. Bowser. The patient verbalized understanding. [facility] 05-30-2024 Miscellaneous Notes Patient called in. Message below given from Dr. Bowser. The patient verbalized understanding. Attempted to contact patient. No answer and no identifying information on voicemail message. Left generic message to please contact the office. Maryanne Ramos RN May 29, 2024 9:15 AM ----- Message from Priti Bowser MD sent at 05/28/2024 3:37 PM EDT ----- Please let patient know that Afirma test was negative for malignancy. I would recommend US thyroid in one year, thanks documented in this encounter [facility] 05-29-2024 Telephone encounter Note Attempted to contact patient. No answer and no identifying information on voicemail message. Left generic message to please contact the office. Maryanne Ramos RN May 29, 2024 9:15 AM [facility] 05-29-2024 Telephone encounter Note ----- Message from Priti Bowser MD sent at 05/28/2024 3:37 PM EDT ----- Please let patient know that Afirma test was negative for malignancy. I would recommend US thyroid in one year, thanks [facility] 05-24-2024 Telephone encounter Note . [facility] 05-24-2024 Telephone encounter Note Images from the original note were not included. Priti Bowser MD Archuleta, Rhonda, RN Please let patient know that findings show <4% risk for cancer and recommendations for US thyroid in one year, thanks! [employer] message sent to patient. Maryanne Ramos RN May 24, 2024 3:54 PM [facility] 05-24-2024 Miscellaneous Notes . documented in this encounter [facility] 05-24-2024 Miscellaneous Notes Images from the original note were not included. Priti Bowser MD Archuleta, Rhonda, RN Please let patient know that findings show <4% risk for cancer and recommendations for US thyroid in one year, thanks! [employer] message sent to patient. Maryanne Ramos RN May 24, 2024 3:54 PM documented in this encounter [facility] 05-21-2024 Telephone encounter Note Scan on 05/06/2024 by ProviderRonal, PA-C: Genetics Patient had virtual visit on 05/13/24, but Afirma results were not available. You advised you would call her with the results. Maryanne Ramos RN [facility] 05-21-2024 Miscellaneous Notes Scan on 05/06/2024 by Provider External, PA-C: Genetics Patient had virtual visit on 05/13/24, but Afirma results were not available. You advised you would call her with the results. Maryanne Ramos RN documented in this encounter [facility] 05-13-2024 History of Present illness Narrative VIRTUAL VISIT FOLLOW UP Lauryn Bang [id number] has requested a video telemedicine follow-up visit. Lauryn Bang verbalized informed consent to proceed with the video telemedicine follow-up visit. Lauryn Bang was informed that the details of this video visit would be recorded as part of their electronic medical record. Patient location at time of call: residence I had a virtual visit with Ms. Bang today for follow up of FNA of right thyroid nodule which revealed - Atypia of undetermined significance. Predominantly oncocytic cells She denies any problems from the biopsy PAST MEDICAL HISTORY No date: Acid reflux No date: Benign neoplasm of colon No date: Diaphragmatic hernia without mention of obstruction or gangrene Comment: takes tums No date: Frequent UTI Comment: Dr. 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 Comment: + bicuspid valve No date: Multiple thyroid nodules No date: Pneumonia, viral No date: Shingles No date: Symptomatic menopausal or female climacteric states Comment: hot flashes, night sweats PAST SURGICAL HISTORY 06/04/2008: COLSC FLX W/RMVL OF TUMOR POLYP LESION SNARE TQ 03/20/2019: EXC LESION TDN SHTH/JT CAPSL HAND/FNGR; Left Comment: Excision of left thumb ganglion cyst 05/06/2024: THYROID RIGHT FINE NEEDLE ASPIRATION; Right No date: UNSPECIFIED ORAL SURGERY PROCEDURE, BY REPORT Comment: [place] teeth extracted 12/2016: UNSPECIFIED ORAL SURGERY PROCEDURE, BY REPORT Comment: tooth extracted 07/29/2008: VAGINAL HYSTERECTOMY UTERUS 250 GM/< Comment: Hysterectomy, vaginal w/ cystocele repair, removed one ovary Current Outpatient Medications Medication Sig Dispense Refill fexofenadine (LILA) 180 mg tablet Take 1 tablet by mouth two times a day. 60 tablet 5 famotidine (PEPCID) 20 mg tablet Take 1 tablet by mouth two times a day. 60 tablet 5 predniSONE (DELTASONE) 10 mg tablet 4 tabs daily for 5 days then 3 tabs daily for 2 days then 2 tabs daily for 2 days then 1 tab daily for 2 dayst hen stop 32 tablet 0 metoprolol succinate ER (TOPROL XL) 25 mg 24 hr tablet Take 1 tablet by mouth once daily. 90 tablet 3 metroNIDAZOLE (METROGEL) 0.75 % Topical Gel APPLY TO THE FACE TWICE DAILY melatonin 1 mg tablet Take by mouth. CRANBERRY ORAL Take by mouth. estradiol 0.01 % (0.1 mg/g) vaginal cream Apply pea-sized amount to urethral opening twice a week. 1 Tube 1 multivitamin ORAL tablet Take 1 tablet by mouth once daily. 0 No current facility-administered medications for this visit. ALLERGIES Allergen Reactions Marcaine-Epinephrin* Shortness of Breath, Angioedema Tolerates Lidocaine/Epinephrine Augmentin [Amoxicil* Diarrhea Bactrim [Sulfametho* GI Upset Doxycycline Rash Erythromycin unknown Meloxicam Submicron* GI Upset Rondec [Bromphenira* Unknown PHYSICAL FINDINGS OF NOTE: General: alert and appropriate, in no distress and well-hydrated, well nourished, Psych: Appropriate mood and interaction Skin: no rash noted, Head: normocephalic, no abnormality or lesion noted, Eyes: visual acuity is grossly normal, no injection,, and EOMI, Ears: external ears normal without erythema or edema, Nose: external nose normal without rhinorrhea, Oropharynx: moist mucus membranes and moist mucus membranes, no tonsillar hypertrophy/exudate, uvula midline and pharynx non-erythematous, lips, teeth and gums are without obvious lesion, Neck: full ROM, no cervical LNs noted, Respiratory: no grunting/flaring/retractions, Chest: equal chest rise with normal respiratory effort, Abdomen: flat appearing. Visible protrusions or hernias: No Incisions/scars: None Areas of pain/tenderness: Denies Neuro: Patient seen sitting with normal appearing strength and coordination Assessment IMPRESSION Thyroid neoplasia of uncertain behavior PLAN I told patient that results are still pending for Afirma and this may take weeks. I will call patient with Afirma results. If requires surgery, I will refer patient to thyroid surgeon at [facility]. Patient acknowledges the above. I spent a total of minutes on the date of the service which included preparing to see the patient, [id number] patient care, completing clinical documentation, counseling and educating the patient/family/caregiver, communicating with other HCPs (not separately reported), and care coordination (not separately reported). Unrelated to E/M, telemedicine, or virtual visit service provided within previous 7 days. No E/M service or procedure anticipated within next 24 hours. Priti Bowser MD May 13, 2024 12:56 PM documented in this encounter [facility] 05-07-2024 Instructions Katerine Rizo MD - 05/07/2024 2:52 PM EDT - Prednisone burst with taper - Take Tylenol as needed, avoid NSAIDs (Ibuprofen, Naproxen) - Start Fexofenadine (Generic Lila) 180mg twice daily - Start Famotidine (Generic Pepcid) 20mg twice daily documented in this encounter [facility] 05-07-2024 History of Present illness Narrative [facility] All[facility] & Immunology Established Visit PATIENT NAME: Lauryn Bang Chief complaint: Patient presents with: Follow Up Hives HPI: Lauryn Bang is a 73 year old female who presents for follow-up, [facility] 07/10/23 Urticaria Symptoms started 04/23/24- started as an erythematous rash. She started using Eucerin cream with no improvement-> Benadryl topical relief (helped) Rash occurred every evening- typically worse along underwear line and along bra line She tried Vagisil and Lotrimin which did help initially but then she broke out into hives She stopped Lotrimin and restarted benadryl cream Triggers include warm shower Saw Urgent Care- prescribed Triamcinolone, Fluconazole, swab then returned with bacterial vaginosis- currently taking Flagyl Went to the ER this morning, she was given Prednisone 40mg and Benadryl Possible prolonged time in heat No angioedema No prior hx of hives Has not had any recent courses of associated illness, antibiotics, NSAID, ACEI use, herbal supplements. As per prior HPI: Adverse reaction to local anesthetic History (unsure of how many years ago) of adverse reaction to possible local anesthetic. Endocrinology used ?lidocaine for biopsies on goiter. She developed giddiness and significant numbness on her face Second episode- tooth extraction developed throat closure, numbness- unsure of what local anesthetic is used On 12/17/2010- her Vocational Rehabilitation Supervisor documented that she is not allergic to Xylocaine/Novocaine. Per chart review- lidocaine was given in 03/20/2019 for ganglion cyst removal. She tolerated with adverse event Hx of ARC: Yes- history of SCIT, symptoms are well controlled. Tend to flare during ragweed season for a couple weeks Hx of asthma: No Hx of eczema: No PAST MEDICAL HISTORY Diagnosis Date Acid reflux Benign neoplasm of colon Diaphragmatic hernia without mention of obstruction or gangrene takes tums Frequent UTI Dr. 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 Multiple thyroid nodules Pneumonia, viral Shingles Symptomatic menopausal or female climacteric states hot flashes, night sweats ACTIVE PROBLEM LIST Benign Neoplasm of Colon Chronic Interstitial Cystitis Osteoporosis Heart Murmur Nontoxic Multinodular Goiter Eczematous Dermatitis Contact Dermatitis and Other Eczema, Due to Unspecified Cause Pruritus Urticaria Ganglion Cyst Enlarged Thyroid Gland Multiple Thyroid Nodules Lumbar Pain Left Hip Pain Palpitations Nonrheumatic Mitral Valve Regurgitation Other Chest Pain Encounter for Screening for Malignant Neoplasm of Colon PAST SURGICAL HISTORY Procedure Laterality Date COLSC FLX W/RMVL OF TUMOR POLYP LESION SNARE TQ 06/04/2008 EXC LESION TDN SHTH/JT CAPSL HAND/FNGR Left 03/20/2019 Excision of left thumb ganglion cyst UNSPECIFIED ORAL SURGERY PROCEDURE, BY REPORT [place] teeth extracted UNSPECIFIED ORAL SURGERY PROCEDURE, BY REPORT 12/2016 tooth extracted VAGINAL HYSTERECTOMY UTERUS 250 GM/< 07/29/2008 Hysterectomy, vaginal w/ cystocele repair, removed one ovary Social History Tobacco Use Smoking status: Never Smokeless tobacco: Never Vaping Use Vaping Use: Never used Substance Use Topics Alcohol use: Yes Comment: Seldom Drug use: No CURRENT OUTPATIENT MEDICATIONS: Current Outpatient Medications Medication Sig Dispense Refill metoprolol succinate ER (TOPROL XL) 25 mg 24 hr tablet Take 1 tablet by mouth once daily. 90 tablet 3 metroNIDAZOLE (FLAGYL) 500 mg tablet Take 1 tablet by mouth two times a day for 7 days. 14 tablet 0 metroNIDAZOLE (METROGEL) 0.75 % Topical Gel APPLY TO THE FACE TWICE DAILY melatonin 1 mg tablet Take by mouth. CRANBERRY ORAL Take by mouth. estradiol 0.01 % (0.1 mg/g) vaginal cream Apply pea-sized amount to urethral opening twice a week. 1 Tube 1 multivitamin ORAL tablet Take 1 tablet by mouth once daily. 0 No current facility-administered medications for this visit. ALLERGIES: ALLERGIES Allergen Reactions Marcaine-Epinephrin* Shortness of Breath, Angioedema Tolerates Lidocaine/Epinephrine Augmentin [Amoxicil* Diarrhea Bactrim [Sulfametho* GI Upset Doxycycline Rash Erythromycin unknown Meloxicam Submicron* GI Upset Rondec [Bromphenira* Unknown REVIEW OF SYSTEMS: HEENT: negative RESPIRATORY: No cough, hemoptysis, recent chest infection, wheezing CONSTITUTIONAL: No acute distress. No weight loss or gain, no fevers or chills CARDIOVASCULAR: negative for chest pain, leg swelling or palpitations. GASTROINTESTINAL: Negative for abdominal discomfort, No blood in stools or black stools MUSCULOSKELETAL: negative for joint pain or swelling, back pain or muscle pain. NEUROLOGIC:Negative for focal numbness or weakness, headaches and dizziness or syncope. DERM/SKIN: as per HPI PSYCHIATRIC: Negative for sleep disturbance, mood disorder and recent psychosocial stressors HEMATOLOGIC/LYMPHATIC/IMMUNOLOGIC :Negative for cold or heat intolerance, polyuria, polydipsia and goiter. PHYSICAL EXAM: BP 112/72 Pulse 87 Temp (Src) 98.6 (Temporal) Resp 16 Ht 5' 4 (1.63m) Wt 160 lb (72.6kg) SpO2 97% BMI 27.45 kg/(m^2). General appearance: Well appearing, alert, in no acute distress, well-hydrated, well nourished. HENT: External ears normal, canals clear, TM's normal Eyes: no scleral icterus, PERRLA, EOMS, no conjunctivitis Nose/Sinuses: Nares normal. Septum midline. Mucosa normal. No drainage or sinus tenderness. Oropharynx: Lips, mucosa, and tongue normal, teeth and gums normal, oropharynx normal Respiratory: Lungs clear to auscultation. No wheezing, rhonchi, rales Cardiovascular: RRR without murmur, gallop, or rubs. No ectopy Gastroenterology: normal appearing abdomen on inspection Musculoskeletal: No joint pain, muscle weakness, or impaired gait Integumentary: Pictures on phone consistent with urticaria Psychiatric: Alert and oriented x 3. No mood disorders noted, calm affect. DATA: Diagnostic tests reviewed for today's visit were personally reviewed by me: Latest Reference Range & Units 04/25/24 10:27 Free T4 0.9 - 1.7 ng/dL 1.0 TSH 0.270 - 4.200 mIU/L 1.140 T3 79 - 165 ng/dL 100 Latest Reference Range & Units 05/04/24 13:08 Bacterial vaginosis Negative for bacterial vaginosis Positive for bacterial vaginosis ! !: Data is abnormal Assessment/Recommendations Acute urticaria (primary encounter diagnosis) Comment: Clinical history and pictures consistent with acute urticaria, no specific triggers or new exposures except bacterial vaginosis infection. Discussed both viral and allergic causes of acute urticaria. Will start prednisone burst with taper and scheduled antihistamines. Given persistence of symptoms and timing discussed that this was unlikely related to any of the topical or oral medications she had been taking Plan: - Prednisone burst with taper - Start Fexofenadine 180mg twice daily, Famotidine 20mg twice daily - Avoid NSAIDs while symptomatic Virtual visit in 6 weeks or sooner as needed I spent a total of 37 minutes on the date of the service which included preparing to see the patient, [id number] patient care, completing clinical documentation, obtaining and/or reviewing separately obtained history, performing a medically appropriate examination, counseling and educating the patient/family/caregiver, and ordering medications, tests, or procedures. Katerine Rizo MD documented in this encounter [facility] 05-06-2024 Instructions Nahomy Jennings LPN - 05/06/2024 3:28 PM EDT Instructions After THYROID FINE NEEDLE ASPIRATION Please do not take aspirin or other blood thinners for the next few days. If you have bleeding from the needle site, hold pressure with a clean gauze. If the bleeding continues, contact our office immediately. I recommend taking Advil or Tylenol for the discomfort. An ice pack may improve your discomfort to the area. Call us if your experience -fever over 101.0 -Swelling at biopsy site Call 911 or visit local emergency room -shortness of breath or trouble breathing -change in voice -bleeding in the throat that will not stop Contact our office immediately if you have any questions or concerns @ [phone]. Please make an appointment to follow up in one week with your physician and thank you for choosing the [facility]. documented in this encounter [facility] 05-06-2024 History of Present illness Narrative Velia presents for US guided FNA of right thyroid nodule PROCEDURE NOTE: After informed consent was given and patient gives permission for the procedure, the patient was in the supine position with neck in slight extension. Appropriate time out protocol was followed. The ultrasound machine was used for real time imaging. The anterior neck skin was cleansed with a sterile surgical skin preparation. The skin and subcutaneous tissues were infiltrated with 1% xylocaine with epinephrine. The ultrasound transducer probe was brought up to localize the thyroid nodules. The right thyroid nodule was identified with the US transducer. It was located in the lower pole. It was about 3.2 cm in maximum dimension A 22 G needle was inserted into the nodule under US guidance. Several passes were made to ensure obtaining enough material. The needle was withdrawn. The specimen was placed in a cytology fixative solution (and also a sample for Afirma testing) and forwarded to pathology. The above was repeated with a new 22 G needle attached to a 10 cc syringe. This was done to ensure adequate sampling. This process was again repeated until adequate sampling was deemed to be achieved. The specimens were then forwarded to pathology. Hemostasis was achieved by pressure. A small bandaid was applied and patient told that could be removed tomorrow. No evidence of bleeding noted. Patient tolerated procedure well. Complications - none EBL - minimal PLAN: Wound care instructions given by clinic staff. Patient to follow up with telehealth visit next week. Patient acknowledges the above. documented in this encounter [facility] 05-06-2024 Nurse Note UNIVERSAL PROTOCOL / SAFETY CHECKLIST Procedure to be Performed: US guided FNA of right thyroid nodule Sign In: A Moment of CARE was completed. Personnel directly involved with the procedure wore the appropriate PPE (Personal Protective Equipment). No special equipment needed. Patient/Surrogate Stated/Verified: PATIENT VERIFIED(optional for EMERGENT procedures): Patient name, Date of , Relevant allergies, and The intended procedure Time Out Communication: Intended patient and procedure match the source documents. Consent documented and matches the intended procedure. Relevant labs, photos, and/or imaging studies have been reviewed. Correct side/site marked and visible. Medications required for procedure verified. Fire risk assessed and interventions discussed. No implant(s) inserted. Sign Out: SIGN OUT (optional for EMERGENT procedures): All specimen containers correctly labeled. No instruments, equipment or retained foreign bodies applicable. Post-procedure follow-up management communicated and Plan of Care Visit completed when applicable. Nahomy Jennings LPN [facility] 05-06-2024 Nurse Note UNIVERSAL PROTOCOL / SAFETY CHECKLIST Procedure to be Performed: US guided FNA of right thyroid nodule Sign In: A Moment of CARE was completed. Personnel directly involved with the procedure wore the appropriate PPE (Personal Protective Equipment). No special equipment needed. Patient/Surrogate Stated/Verified: PATIENT VERIFIED(optional for EMERGENT procedures): Patient name, Date of , Relevant allergies, and The intended procedure Time Out Communication: Intended patient and procedure match the source documents. Consent documented and matches the intended procedure. Relevant labs, photos, and/or imaging studies have been reviewed. Correct side/site marked and visible. Medications required for procedure verified. Fire risk assessed and interventions discussed. No implant(s) inserted. Sign Out: SIGN OUT (optional for EMERGENT procedures): All specimen containers correctly labeled. No instruments, equipment or retained foreign bodies applicable. Post-procedure follow-up management communicated and Plan of Care Visit completed when applicable. Nahomy Jennings LPN documented in this encounter [facility] 05-06-2024 Instructions Bety Iglesias MD - 05/06/2024 11:06 AM EDT We are scheduling you for an echocardiogram Oct We are adding Metoprolol Succinate 25 mg once per day in the evening documented in this encounter [facility] 05-06-2024 History of Present illness Narrative Images from the original note were not included. [facility] Cardiology ([facility]) [address] [facility] [id number] OUTPATIENT VISIT DATE 05/06/2024 PRIMARY CARE PHYSICIAN: Ashlyn Keita [address] [place] [address] REFERRING PHYSICIAN: Ashlyn Keita [address] [facility] [address] HISTORY OF PRESENT ILLNESS: Ms. Bang is a 73 year old woman with moderate to severe mitral regurgitation and palpitations who presents for routine follow-up. She reports that she has been struggling with a diffuse erythematous rash. 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 She denies symptoms of palpitations, lightheadedness, dizziness or syncope. She has not had shortness of breath or dyspnea on exertion. She denies symptoms concerning for congestive heart failure including PND, orthopnea, lower extremity edema. PAST MEDICAL HISTORY Diagnosis Date Acid reflux Benign neoplasm of colon Diaphragmatic hernia without mention of obstruction or gangrene takes tums Frequent UTI Dr. 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 Multiple thyroid nodules Pneumonia, viral Shingles Symptomatic menopausal or female climacteric states hot flashes, night sweats PAST SURGICAL HISTORY Procedure Laterality Date COLSC FLX W/RMVL OF TUMOR POLYP LESION SNARE TQ 06/04/2008 EXC LESION TDN SHTH/JT CAPSL HAND/FNGR Left 03/20/2019 Excision of left thumb ganglion cyst UNSPECIFIED ORAL SURGERY PROCEDURE, BY REPORT [place] teeth extracted UNSPECIFIED ORAL SURGERY PROCEDURE, BY REPORT 12/2016 tooth extracted VAGINAL HYSTERECTOMY UTERUS 250 GM/< 07/29/2008 Hysterectomy, vaginal w/ cystocele repair, removed one ovary SOCIAL HISTORY Social History Tobacco Use Smoking status: Never Smokeless tobacco: Never Vaping Use Vaping Use: Never used Substance Use Topics Alcohol use: Yes Comment: Seldom Drug use: No FAMILY HISTORY Problem Relation Age of Onset Breast Cancer Mother CHF age of breast cancer 60's Breast Cancer Sister late 50's, Cancer Sister BRAIN age 70 Breast Cancer Maternal Grandmother ALLERGIES: ALLERGIES Allergen Reactions Marcaine-Epinephrin* Shortness of Breath, Angioedema Tolerates Lidocaine/Epinephrine Lotrimin [Clotrimaz* Hives Augmentin [Amoxicil* Diarrhea Bactrim [Sulfametho* GI Upset Doxycycline Rash Erythromycin unknown Meloxicam Submicron* GI Upset Rondec [Bromphenira* Unknown MEDICATIONS: metroNIDAZOLE (FLAGYL) 500 mg tablet Take 1 tablet by mouth two times a day for 7 days. metroNIDAZOLE (METROGEL) 0.75 % Topical Gel APPLY TO THE FACE TWICE DAILY CRANBERRY ORAL Take by mouth. estradiol 0.01 % (0.1 mg/g) vaginal cream Apply pea-sized amount to urethral opening twice a week. multivitamin ORAL tablet Take 1 tablet by mouth once daily. fluticasone propionate (FLONASE NASAL) Use 2 Sprays in the nose as needed. melatonin 1 mg tablet Take by mouth. (Patient not taking: Reported on 11/22/2023) REVIEW OF SYSTEMS: Review of Systems Constitutional: Negative for chills, fever, malaise/fatigue and weight loss. HENT: Negative for hearing loss and sore throat. Eyes: Negative for blurred vision and double vision. Respiratory: Negative. Cardiovascular: Negative for chest pain and palpitations. Gastrointestinal: Negative. Genitourinary: Negative for dysuria, frequency, hematuria and urgency. Musculoskeletal: Negative. Skin: Negative. Neurological: Negative for dizziness, seizures, loss of consciousness, weakness and headaches. Endo/Heme/Allergies: Negative for environmental allergies. Does not bruise/bleed easily. Psychiatric/Behavioral: Negative for depression. PHYSICAL EXAMINATION: BP 141/85 Pulse 96 Wt 162 lb (73.5kg) SpO2 100% General: Very pleasant woman sitting appears comfortable no apparent distress she is alert and oriented x3 HEENT: Carotid upstrokes are brisk bilaterally without bruits no JVD appreciated. Pulmonary: Lungs are clear no rales, wheezes, rhonchi Cardiovascular: Normal S1, S2 with regular rate and rhythm. There is a late systolic murmur best heard at the right upper sternal border rated 3/6. Extremities: Warm, well-perfused, no lower extremity edema. 2+ distal pulses CARDIOVASCULAR MEDICINE TESTING: Echocardiogram 07/11/2023: - The left ventricle is normal in size. Left ventricular systolic function is normal. EF = 54 5% (2D biplane) Left ventricular diastolic function was not evaluated due to >2+ MR. - The right ventricle is normal in size. Right ventricular systolic function is normal. - The left atrial cavity is severely dilated. 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 Regurgitant orifice area (PISA) is 0.33 cm . Bileaflet prolapse posterior >> anterior. - Exam was compared with the prior echocardiographic exam performed on 10/25/2010. Echocardiogram 10/25/2010: CONCLUSIONS: - The left ventricle is normal in size. Left ventricular systolic function is low normal. EF = 50 % - The right ventricle is normal in size. Right ventricular systolic function is normal. - Normal diastolic function. - Mild LAE. - Mild bi-leaflet prolapse with 2+ MR. Mildly thickened leaflets. - 1+ TR. RVSP 26mmHg. - Mild aortic sclerosis with no AI. - Trivial PI. - There is no previous echo for comparison. Zio monitor 07/03-07/17/2023: Patient had a min HR of 59 bpm, max HR of 200 bpm, and avg HR of 85 bpm. Predominant underlying rhythm was Sinus Rhythm. 6 Ventricular Tachycardia runs occurred, the run with the fastest interval lasting 19 beats with a max rate of 200 bpm (avg 156 bpm); the run with the fastest interval was also the longest. 15 Supraventricular Tachycardia runs occurred, the run with the fastest interval lasting 4 beats with a max rate of 171 bpm, the longest lasting 15 beats with an avg rate of 132 bpm. Ventricular Tachycardia and Supraventricular Tachycardia were detected within +/- 45 seconds of symptomatic patient event(s). Isolated SVEs were rare (<1.0%), SVE Couplets were rare (<1.0%), and SVE Triplets were rare (<1.0%). Isolated VEs were occasional (4.7%, 22583), VE Couplets were rare (<1.0%, 31), and VE Triplets were rare (<1.0%, 2). Ventricular Trigeminy was present. IMPRESSION: Ms. Bang is a 72 year old woman with a history of mitral valve prolapse with moderately severe mitral regurgitation and palpitations who presents for routine follow-up PLAN AND RECOMMENDATIONS: 1. Nonrheumatic mitral valve regurgitation - ICD9: 424.0, ICD10: I34.0 (primary diagnosis) Plan to repeat echocardiogram in July. I have added low-dose beta-gurinder therapy due to concerns for possible atrial fibrillation. - METOPROLOL SUCCINATE ER 25 MG TABLET,EXTENDED RELEASE 24 HR - ECHO - PERFLUTREN LIPID MICROSPHERES 1.1 MG/ML INJECTION IN NS 10 ML - SODIUM CHLORIDE 0.9 % (FLUSH) INJECTION SYRINGE 2. Palpitations - ICD9: 785.1, ICD10: R00.2 Has been asymptomatic since her last visit. She is at risk for developing A-fib. I have added low-dose beta-gurinder therapy. - METOPROLOL SUCCINATE ER 25 MG TABLET,EXTENDED RELEASE 24 HR - ECHO - PERFLUTREN LIPID MICROSPHERES 1.1 MG/ML INJECTION IN NS 10 ML - SODIUM CHLORIDE 0.9 % (FLUSH) INJECTION SYRINGE Bety Iglesias MD documented in this encounter [facility] 05-05-2024 Telephone encounter Note Pt was notified of the results. Pt verbalized understanding. Salima Figueroa MA [facility] 05-05-2024 Miscellaneous Notes Pt was notified of the results. Pt verbalized understanding. Salima Figueroa MA Please let patient know she tested positive for bacterial vaginosis. This is an overgrowth of bacteria, and is not an STD. Take metronidazole as prescribed. Do not drink alcohol while taking this medication. Yeast was negative. documented in this encounter [facility] 05-05-2024 Telephone encounter Note Please let patient know she tested positive for bacterial vaginosis. This is an overgrowth of bacteria, and is not an STD. Take metronidazole as prescribed. Do not drink alcohol while taking this medication. Yeast was negative. [facility] 05-04-2024 History of Present illness Narrative Subjective She came in with complaints of vaginal itching and rectal itching. Patient says that skin going on and off since mid April. Patient also has been having hives only in the evening. Patient is not sure of the cause. Patient has not changed anything new that would be causing it. Patient uses sensitive skin soap and laundry soap. Patient denies any other symptoms. The history is provided by the patient. No language instructor was used. Hives Associated symptoms include a rash. Review of Systems Constitutional: Negative. Skin: Positive for itching and rash. Objective Physical Exam Constitutional: Appearance: Normal appearance. Pulmonary: Effort: Pulmonary effort is normal. Skin: Comments: No hives visible today. Usually only at night Neurological: Mental Status: She is alert. PAST MEDICAL HISTORY Diagnosis Date Acid reflux Benign neoplasm of colon Diaphragmatic hernia without mention of obstruction or gangrene takes tums Frequent UTI Dr. 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 Multiple thyroid nodules Pneumonia, viral Shingles Symptomatic menopausal or female climacteric states hot flashes, night sweats PAST SURGICAL HISTORY Procedure Laterality Date COLSC FLX W/RMVL OF TUMOR POLYP LESION SNARE TQ 06/04/2008 EXC LESION TDN SHTH/JT CAPSL HAND/FNGR Left 03/20/2019 Excision of left thumb ganglion cyst UNSPECIFIED ORAL SURGERY PROCEDURE, BY REPORT [place] teeth extracted UNSPECIFIED ORAL SURGERY PROCEDURE, BY REPORT 12/2016 tooth extracted VAGINAL HYSTERECTOMY UTERUS 250 GM/< 07/29/2008 Hysterectomy, vaginal w/ cystocele repair, removed one ovary ALLERGIES Marcaine-Epinephrine [Bupivacaine-Epinephrine], Lotrimin [Clotrimazole], Augmentin [Amoxicillin-Pot Clavulanate], Bactrim [Sulfamethoxazole], Doxycycline, Erythromycin, Meloxicam Submicronized, and Rondec [Brompheniramine-Pseudoephedrin] MEDICATIONS metroNIDAZOLE (METROGEL) 0.75 % Topical Gel APPLY TO THE FACE TWICE DAILY CRANBERRY ORAL Take by mouth. estradiol 0.01 % (0.1 mg/g) vaginal cream Apply pea-sized amount to urethral opening twice a week. multivitamin ORAL tablet Take 1 tablet by mouth once daily. fluconazole (DIFLUCAN) 150 mg tablet Take 1 tablet by mouth one time only for 1 dose. fluticasone propionate (FLONASE NASAL) Use 2 Sprays in the nose as needed. melatonin 1 mg tablet Take by mouth. (Patient not taking: Reported on 11/22/2023) FAMILY HISTORY Problem Relation Age of Onset Breast Cancer Mother CHF age of breast cancer 60's Breast Cancer Sister late 50's, Cancer Sister BRAIN age 70 Breast Cancer Maternal Grandmother Social History Tobacco Use Smoking status: Never Smokeless tobacco: Never Vaping Use Vaping Use: Never used Substance Use Topics Alcohol use: Yes Comment: Seldom Drug use: No ASSESSMENT/PLAN: 1. Vaginal itching - ICD9: 698.1, ICD10: N89.8 (primary diagnosis) - FLUCONAZOLE 150 MG TABLET - STACEY/TRICHOMONAS NAAT - BACTERIAL VAGINOSIS NAAT 2. Hives - ICD9: 708.9, ICD10: L50.9 Patient is going to self swab. Patient is being treated for yeast due to itching. Patient was educated to follow-up with her allergy doctor to have testing for what could be causing the hives. If this does not produce any answers she will go to dermatology for the nightly hives. Patient has steroid cream at home that she will use if she gets the hives again. If bacterial vaginosis comes back positive please treat accordingly. Patient was okay with this care plan. Sharri Aj APRN.AYAH documented in this encounter [facility] 04-30-2024 Nurse Note REVIEW OF SYSTEMS: General: The patient denies fatigue, denies weight loss, denies weight gain, denies feeling hot, and denies feelings of cold. Eyes: The patient denies glaucoma, denies eye injury/surgery, wears glasses or contacts. Ear/Nose/Throat: The patient NOTES allergies, denies hayfever, denies ear infections, and denies bloody noses. Cardiovascular: The patient denies chest pain, denies heart disease, denies high blood pressure,denies cardiac stent, denies prior heart attack, denies irregular heart beat, denies high cholesterol, denies poor circulation, denies heart failure, other cardiac issues, denies claudication, denies cold feet, denies peripheral arterial stent. Respiratory: The patient denies tuberculosis, NOTES pneumonia, denies frequent cough, denies pulmonary embolism, denies shortness of breath, and denies coughing up blood. Gastrointestinal: The patient denies difficulty swallowing, NOTES acid reflux, denies ulcers, denies vomiting, denies jaundice/hepatitis, denies gallbladder problems, denies black or tarry stools, denies hemorrhoids, denies bleeding from rectum, denies diverticulitis, denies constipation, denies diarrhea, denies loss of stool control, and denies hernias. Kidney/Bladder: The patient denies kidney stones, NOTES urine infections, and denies bloody urine. Skin: The patient denies a history of skin cancer, denies bleeding/changing moles, and NOTES a history of skin rash. Neurologic: The patient denies a history of epilepsy/convulsions, denies headaches, denies head/spinal injuries, and denies stroke/TIA. Psychiatric: The patient denies psychiatric medications, denies depression, and denies voices, denies substance abuse. Endocrine: The patient NOTES thyroid disorders, denies diabetes, and denies hormonal problems. Hematologic: The patient denies a history of bruising, denies bleeding, and denies anemia, denies blood clots. Infections: The patient denies a history of measles and mumps, denies rheumatic fever, and denies sexually transmitted diseases. Musculoskeletal: The patient denies back pain/injury, NOTES back problems, denies sciatica, denies knee/foot trouble, denies arthritis, or denies gout. When was patient's last Mammogram screening? 09/13/2023 Last Colonoscopy: Unknown Maryanne Ramos RN [facility] 04-30-2024 Nurse Note REVIEW OF SYSTEMS: General: The patient denies fatigue, denies weight loss, denies weight gain, denies feeling hot, and denies feelings of cold. Eyes: The patient denies glaucoma, denies eye injury/surgery, wears glasses or contacts. Ear/Nose/Throat: The patient NOTES allergies, denies hayfever, denies ear infections, and denies bloody noses. Cardiovascular: The patient denies chest pain, denies heart disease, denies high blood pressure,denies cardiac stent, denies prior heart attack, denies irregular heart beat, denies high cholesterol, denies poor circulation, denies heart failure, other cardiac issues, denies claudication, denies cold feet, denies peripheral arterial stent. Respiratory: The patient denies tuberculosis, NOTES pneumonia, denies frequent cough, denies pulmonary embolism, denies shortness of breath, and denies coughing up blood. Gastrointestinal: The patient denies difficulty swallowing, NOTES acid reflux, denies ulcers, denies vomiting, denies jaundice/hepatitis, denies gallbladder problems, denies black or tarry stools, denies hemorrhoids, denies bleeding from rectum, denies diverticulitis, denies constipation, denies diarrhea, denies loss of stool control, and denies hernias. Kidney/Bladder: The patient denies kidney stones, NOTES urine infections, and denies bloody urine. Skin: The patient denies a history of skin cancer, denies bleeding/changing moles, and NOTES a history of skin rash. Neurologic: The patient denies a history of epilepsy/convulsions, denies headaches, denies head/spinal injuries, and denies stroke/TIA. Psychiatric: The patient denies psychiatric medications, denies depression, and denies voices, denies substance abuse. Endocrine: The patient NOTES thyroid disorders, denies diabetes, and denies hormonal problems. Hematologic: The patient denies a history of bruising, denies bleeding, and denies anemia, denies blood clots. Infections: The patient denies a history of measles and mumps, denies rheumatic fever, and denies sexually transmitted diseases. Musculoskeletal: The patient denies back pain/injury, NOTES back problems, denies sciatica, denies knee/foot trouble, denies arthritis, or denies gout. When was patient's last Mammogram screening? 09/13/2023 Last Colonoscopy: Unknown Maryanne Ramos RN documented in this encounter [facility] 04-30-2024 History of Present illness Narrative Lauryn Perez Beti 1950 REFERRING PHYSICIAN: Perry Bautista,* CHIEF COMPLAINT: Consult (Abnormal thyroid ultrasound. ) HPI: The patient is a 73 year old female presents with abnormal ultrasound of thyroid. She does note occasional swallowing problems in th throat area, however, she compensates for this by taking small bites and this has been going on for a while. She denies hoarseness. She denies globus symptoms. She denies exposure to unusual radiation. She denies taking thyroid hormones. She denies thyroid cancer in the family. She did have previous right and left thyroid nodule FNA in 2010 revealing benign colloid nodules. US thyroid 04/23/2024 - right lobe is 6.8 x 2.5; left lobe is 8.4 x 2.7; right lower pole nodule is 3.2 x 2.4 x 3.2 cm (previously 3.4 x 2.2 x 2.8 cm on 09/09/2019) for which FNA is advised. PAST MEDICAL HISTORY Diagnosis Date Acid reflux Benign neoplasm of colon Diaphragmatic hernia without mention of obstruction or gangrene takes tums Frequent UTI Dr. 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 Multiple thyroid nodules Pneumonia, viral Shingles Symptomatic menopausal or female climacteric states hot flashes, night sweats PAST SURGICAL HISTORY Procedure Laterality Date COLSC FLX W/RMVL OF TUMOR POLYP LESION SNARE TQ 06/04/2008 EXC LESION TDN SHTH/JT CAPSL HAND/FNGR Left 03/20/2019 Excision of left thumb ganglion cyst UNSPECIFIED ORAL SURGERY PROCEDURE, BY REPORT [place] teeth extracted UNSPECIFIED ORAL SURGERY PROCEDURE, BY REPORT 12/2016 tooth extracted VAGINAL HYSTERECTOMY UTERUS 250 GM/< 07/29/2008 Hysterectomy, vaginal w/ cystocele repair, removed one ovary Current Outpatient Medications Medication Sig NITROFURANTOIN ORAL Take by mouth as needed. CRANBERRY ORAL Take by mouth. estradiol 0.01 % (0.1 mg/g) vaginal cream Apply pea-sized amount to urethral opening twice a week. multivitamin ORAL tablet Take 1 tablet by mouth once daily. fluticasone propionate (FLONASE NASAL) Use 2 Sprays in the nose as needed. melatonin 1 mg tablet Take by mouth. (Patient not taking: Reported on 11/22/2023) No current facility-administered medications for this visit. ALLERGIES: Marcaine-Epinephrine [Bupivacaine-Epinephrine], Augmentin [Amoxicillin-Pot Clavulanate], Bactrim [Sulfamethoxazole], Doxycycline, Erythromycin, Meloxicam Submicronized, and Rondec [Brompheniramine-Pseudoephedrin] PERSONAL HISTORY: Social History Tobacco Use Smoking status: Never Smokeless tobacco: Never Vaping Use Vaping Use: Never used Substance Use Topics Alcohol use: Yes Comment: Seldom Drug use: No FAMILY HISTORY Problem Relation Age of Onset Breast Cancer Mother CHF age of breast cancer 60's Breast Cancer Sister late 50's, Cancer Sister BRAIN age 70 Breast Cancer Maternal Grandmother The review of systems data was entered by the nurse and reviewed by me Nursing Notes: Maryanne Ramos RN 04/30/2024 9:35 AM Signed REVIEW OF SYSTEMS: General: The patient denies fatigue, denies weight loss, denies weight gain, denies feeling hot, and denies feelings of cold. Eyes: The patient denies glaucoma, denies eye injury/surgery, wears glasses or contacts. Ear/Nose/Throat: The patient NOTES allergies, denies hayfever, denies ear infections, and denies bloody noses. Cardiovascular: The patient denies chest pain, denies heart disease, denies high blood pressure,denies cardiac stent, denies prior heart attack, denies irregular heart beat, denies high cholesterol, denies poor circulation, denies heart failure, other cardiac issues, denies claudication, denies cold feet, denies peripheral arterial stent. Respiratory: The patient denies tuberculosis, NOTES pneumonia, denies frequent cough, denies pulmonary embolism, denies shortness of breath, and denies coughing up blood. Gastrointestinal: The patient denies difficulty swallowing, NOTES acid reflux, denies ulcers, denies vomiting, denies jaundice/hepatitis, denies gallbladder problems, denies black or tarry stools, denies hemorrhoids, denies bleeding from rectum, denies diverticulitis, denies constipation, denies diarrhea, denies loss of stool control, and denies hernias. Kidney/Bladder: The patient denies kidney stones, NOTES urine infections, and denies bloody urine. Skin: The patient denies a history of skin cancer, denies bleeding/changing moles, and NOTES a history of skin rash. Neurologic: The patient denies a history of epilepsy/convulsions, denies headaches, denies head/spinal injuries, and denies stroke/TIA. Psychiatric: The patient denies psychiatric medications, denies depression, and denies voices, denies substance abuse. Endocrine: The patient NOTES thyroid disorders, denies diabetes, and denies hormonal problems. Hematologic: The patient denies a history of bruising, denies bleeding, and denies anemia, denies blood clots. Infections: The patient denies a history of measles and mumps, denies rheumatic fever, and denies sexually transmitted diseases. Musculoskeletal: The patient denies back pain/injury, NOTES back problems, denies sciatica, denies knee/foot trouble, denies arthritis, or denies gout. When was patient's last Mammogram screening? 09/13/2023 Last Colonoscopy: Unknown Maryanne Ramos RN PHYSICAL EXAMINATION: General: The patient is 73 year old female, well nourished, well hydrated in no acute distress. The patient is oriented to time, place, and person. VITALS: Blood pressure 128/84, pulse 98, temperature 36.2 C (97.1 F), height 162.6 cm (5' 4), weight 73 kg (161 lb), SpO2 96%. Body mass index is 27.64 kg/m . Head: Normal cephalic, atraumatic Eyes: pupils are equally round, sclera are clear/anicteric Neck is supple with no tracheal deviation, no palpable masses noted Cardiac: normal heart sounds, regular Respiratory: Normal respiratory excursion and pattern. Abdominal exam: benign Extremities: no clubbing, cyanosis or edema. Neuro: non focal Psych: normal mood RADIOLOGIC STUDIES: As Noted Assessment IMPRESSION: abnormal ultrasound of thyroid PLAN: I have discussed the above with the patient. I have offered US guided FNA of thyroid nodule on right. I have explained the procedure to the patient. I have counseled the patient as to the risks of the procedure, including but not limited to: infection, bleeding, injury to any blood vessels/nerves, scar tissue, wound infections, complications of anesthesia, etc. - the patient understands. The patient wishes to proceed. I have answered all questions to the patient s satisfaction and the patient has no further questions. I have confirmed and edited as necessary, the PFSH and ROS obtained by others. Consultation requested by Dr. Perry Bautista for an opinion regarding patient's abnormal ultrasound of thyroid. My final recommendations will be communicated back to the requesting physician by way of shared Medical record or letter to requesting physician via US mail. . Diagnoses: (R93.89) Abnormal ultrasound of thyroid gland (primary encounter diagnosis) (E04.2) Multinodular goiter Medical Decision Making: Problems: Moderate: New problem with uncertain prognosis Risk: Low: Low risk from testing/treatment Medical Decision Making Level: 3 - Low Priti Bowser MD documented in this encounter [facility] 04-24-2024 Telephone encounter Note Spoke with patient. Given message from provider's office. Patient verbalizes understanding. Transferred to galvanizer for NATALIE appointment with GEN SURG. Fallon Ruffin RN [facility] 04-24-2024 Miscellaneous Notes Spoke with patient. Given message from provider's office. Patient verbalizes understanding. Transferred to galvanizer for NATALIE appointment with GEN SURG. Fallon Ruffin RN Left message for patient to call office back and speak with triage nurse. Haylee Harman LPN Patient's ultrasound shows total of 4 nodules measuring up to 3.2 cm. Largest nodule on the right lower pole is unchanged from 2019. It appears patient had FNA of left thyroid nodule back around 2010. I do not believe she has had a biopsy on this right nodule, which would be recommended. Will place referral order to general surgery for this and repeat thyroid levels. Please assist with scheduling NATALIE. Two of the nodules appear benign and do not need further imaging. Her 1.6 cm nodule on left medial pole should have repeat US in 1, 3 and 5 years to monitor for stability. documented in this encounter [facility] 04-24-2024 Telephone encounter Note Left message for patient to call office back and speak with triage nurse. Haylee Harman LPN [facility] 04-24-2024 Telephone encounter Note Patient's ultrasound shows total of 4 nodules measuring up to 3.2 cm. Largest nodule on the right lower pole is unchanged from 2019. It appears patient had FNA of left thyroid nodule back around 2010. I do not believe she has had a biopsy on this right nodule, which would be recommended. Will place referral order to general surgery for this and repeat thyroid levels. Please assist with scheduling NATALIE. Two of the nodules appear benign and do not need further imaging. Her 1.6 cm nodule on left medial pole should have repeat US in 1, 3 and 5 years to monitor for stability. [facility] 03-30-2024 History of Present illness Narrative Chief Complaint Patient presents with: Sore Throat: EC follow up HPI Lauryn Bang is a 73 year old female who presents here today for Above Complaints.. Patient evaluated on 03/23 by Regine Ivey for sore throat with painful swallowing which started that day. Strep testing was negative. Normal exam other than nodular thyroid. Diagnosed with viral etiology and advised to f/u in 3-5 days if not improving. Today, she states that her symptoms improved after her last OV, but developed worsening sore throat about 2 days ago which has persisted. Admits to productive cough with white sputum, post nasal drip, right ear pain, eye itching with dryness, fatigue, right maxillary sinus pressure. Treating with flonase, tylenol, OTC lozenges, and pushing PO fluids. No recent sick contacts. No known COVID exposure. Denies fever/chills, SOB, wheezing, chest pain, chest congestions, headache, myalgias, nausea, vomiting, diarrhea, new loss of taste/smell. Notes that she gets sinus pressure off and on which she follows up regularly with ENT for. Past medical history, appointments, medications, allergies reviewed. Previous Medical History PAST MEDICAL HISTORY Diagnosis Date Acid reflux Benign neoplasm of colon Diaphragmatic hernia without mention of obstruction or gangrene takes tums Frequent UTI Dr. 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 valve Pneumonia, viral Shingles Symptomatic menopausal or female climacteric states hot flashes, night sweats Previous Surgical History PAST SURGICAL HISTORY Procedure Laterality Date COLSC FLX W/RMVL OF TUMOR POLYP LESION SNARE TQ 06/04/2008 EXC LESION TDN SHTH/JT CAPSL HAND/FNGR Left 03/20/2019 Excision of left thumb ganglion cyst UNSPECIFIED ORAL SURGERY PROCEDURE, BY REPORT [place] teeth extracted UNSPECIFIED ORAL SURGERY PROCEDURE, BY REPORT 12/2016 tooth extracted VAGINAL HYSTERECTOMY UTERUS 250 GM/< 07/29/2008 Hysterectomy, vaginal w/ cystocele repair, removed one ovary Family History FAMILY HISTORY Problem Relation Age of Onset Breast Cancer Mother CHF age of breast cancer 60's Breast Cancer Sister late 50's, Cancer Sister BRAIN age 70 Breast Cancer Maternal Grandmother Patient Allergies ALLERGIES Allergen Reactions Marcaine-Epinephrin* Shortness of Breath, Angioedema Tolerates Lidocaine/Epinephrine Augmentin [Amoxicil* Diarrhea Bactrim [Sulfametho* GI Upset Doxycycline Rash Erythromycin unknown Meloxicam Submicron* GI Upset Rondec [Bromphenira* unknown Current Medications Current Outpatient Medications on File Prior to Visit Medication Sig fluticasone propionate (FLONASE NASAL) Use 2 Sprays in the nose as needed. NITROFURANTOIN ORAL Take by mouth as needed. CRANBERRY ORAL Take by mouth. multivitamin ORAL tablet Take 1 tablet by mouth once daily. melatonin 1 mg tablet Take by mouth. (Patient not taking: Reported on 11/22/2023) estradiol 0.01 % (0.1 mg/g) vaginal cream Apply pea-sized amount to urethral opening twice a week. No current facility-administered medications on file prior to visit. Social History Social History Tobacco Use Smoking status: Never Smokeless tobacco: Never Vaping Use Vaping Use: Never used Substance Use Topics Alcohol use: Yes Comment: Seldom Drug use: No Review of Symptoms REVIEW OF SYSTEMS See HPI EXAM: BP 126/70 Pulse 84 Temp 36.6 C (97.8 F) Resp 16 Wt 73.6 kg (162 lb 3.2 oz) SpO2 97% BMI 28.73 kg/m General Appearance: Well appearing, alert, in no acute distress, well-hydrated, well nourished.. Skin: Skin color, texture, turgor normal, no suspicious rashes or lesions. Head: Normocephalic, no masses, lesions, tenderness or abnormalities. Eyes: Anicteric sclera. Pupils are equally round and reactive to light. Extraocular movements are intact. . Ears: External ears normal, canals clear. TMs normal. Nose/Sinuses: Negative findings: no sinus tenderness, Positive findings: mucosa erythematous and swollen. Oropharynx: Lips, mucosa, and tongue normal, teeth and gums normal, oropharynx normal. Neck: nodular thyroid without TTP Lungs: Lungs clear to auscultation. No wheezing, rhonchi, rales.. Heart: RRR with 3/6 SHIRLEY best heard over mitral valve. Health Maintenance List Shingrix Vaccine(1 of 2) Never done RSV Vaccine(1 - 1-dose 60+ series) Never done Bone Density Screening due on 12/26/2016 Pneumococcal Vaccine: 65+(1 of 1 - PCV) Never done Colorectal Cancer Screening due on 08/19/2020 Advance Directive Discussion Never done Behavioral Health Screening Never done Covid-19 Vaccine( - 2022- season) due on 11/27/2023 Mammogram Screening due on 09/13/2024 Diabetes Screening due on 06/30/2026 Lipid Screening due on 06/30/2028 DTaP,Tdap,Td Vaccine(2 - Td or Tdap) due on 09/04/2029 Influenza Vaccine Completed Hepatitis C Screening Completed ASSESSMENT/PLAN: 1. Sore throat - ICD9: 462, ICD10: J02.9 (primary diagnosis) - suspect viral vs allergic - Discussed supportive care treatment with fluids, rest and analgesia. - The patient may also use warm salt water gargles, throat lozenges and/or OTC throat spray as needed and nasal saline gtts and suction prn. - The patient should follow up in one week if symptoms persist or worsen - Call back if drooling, increased temperature, symptoms of dehydration and/or still sick in one week 2. Seasonal allergic rhinitis, unspecified trigger - ICD9: 477.9, ICD10: J30.2 Discussed use of OTC antihistamines PRN along with flonase. F/u with ENT as scheduled. Red flags for re-assessment reviewed with patient in detail. 3. Nodular thyroid disease - ICD9: 241.0, ICD10: E04.1 Known history of thyroid nodules. Overdue for US. Recent TSH normal. Would like referral back to endocrinology. - US THYROID/PARATHYROID - CONSULT TO ENDOCRINOLOGY 4. Heart murmur - ICD9: 785.2, ICD10: R01.1 Consistent with MVR. F/u with cardiology as scheduled. 5. Nonrheumatic mitral valve regurgitation - ICD9: 424.0, ICD10: I34.0 See above. Perry Bautista MD documented in this encounter [facility] 03-23-2024 History of Present illness Narrative This note was created using [email or web address]. Subjective Lauryn Bang is a 73 year old female. Reports she woke up this morning with a sore throat and painful swallowing. Has hx of goiter. No other symptoms, otherwise does not feel unwell. Objective BP 132/82 Pulse 90 Temp 36.4 C (97.6 F) Resp 20 Wt 73.6 kg (162 lb 4.1 oz) SpO2 98% BMI 28.74 kg/m Physical Exam PHYSICAL EXAMINATION: General appearance: Well appearing, alert, in no acute distress, well-hydrated, well nourished. Oropharynx: Lips, mucosa, and tongue normal, teeth and gums normal, oropharynx normal Neck: Positive findings: thyroid: nodular Assessment and Plan ASSESSMENT/PLAN: 1. Sore throat - ICD9: 462, ICD10: J02.9 - suspect viral - Rapid Strep negative in the office today - Discussed supportive care treatment with fluids, rest and analgesia. - The patient may also use OTC cough and cold meds as needed. - Contagious dz precautions discussed- including considered contagious until on antibiotics for 24 hours - The patient should follow up in 3-5 days if symptoms persist or worsen - STREP A MOLECULAR (POC) - STREP A MOLECULAR (POC) Regine Ivey APRN.METALLURGICAL ENGINEERING TECHNICIAN documented in this encounter [facility] 11-22-2023 History of Present illness Narrative This note was created using [employer]. Subjective Lauryn Bang is a 72 year old female. 72 year old female with PMH of mitral valve regurgitation and thyroid nodules presents today with acute onset URI symptoms. Pertinent positives include sinus pain, right ear pain, dry cough, sore throat, fever, fatigue, body aches, and chills. Pertinent negatives include ear drainage, decreased appetite, GI upset, eye drainage, eye redness, dyspnea, dizziness, and rash. The history is provided by the patient. URI She complains of cough. There is no chest tightness, difficulty breathing or shortness of breath. This is a new problem. The current episode started in the past 7 days. The problem occurs constantly. The problem has been unchanged. The cough is non-productive. Associated symptoms include ear congestion, ear pain, a fever, headaches, malaise/fatigue, myalgias, nasal congestion, rhinorrhea, a sore throat and sweats. Pertinent negatives include no appetite change, chest pain or dyspnea on exertion. Her symptoms are aggravated by eating. Her symptoms are alleviated by nothing. Risk factors: reports recent travel to [place] where she was in crowded settings. Her past medical history is significant for pneumonia. There is no history of asthma or COPD. PAST MEDICAL HISTORY Diagnosis Date Acid reflux Benign neoplasm of colon Diaphragmatic hernia without mention of obstruction or gangrene takes tums Frequent UTI Dr. 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 valve Pneumonia, viral Shingles Symptomatic menopausal or female climacteric states hot flashes, night sweats PAST SURGICAL HISTORY Procedure Laterality Date COLSC FLX W/RMVL OF TUMOR POLYP LESION SNARE TQ 06/04/2008 EXC LESION TDN SHTH/JT CAPSL HAND/FNGR Left 03/20/2019 Excision of left thumb ganglion cyst UNSPECIFIED ORAL SURGERY PROCEDURE, BY REPORT [place] teeth extracted UNSPECIFIED ORAL SURGERY PROCEDURE, BY REPORT 12/2016 tooth extracted VAGINAL HYSTERECTOMY UTERUS 250 GM/< 07/29/2008 Hysterectomy, vaginal w/ cystocele repair, removed one ovary ALLERGIES Marcaine-Epinephrine [Bupivacaine-Epinephrine], Augmentin [Amoxicillin-Pot Clavulanate], Bactrim [Sulfamethoxazole], Doxycycline, Erythromycin, Meloxicam Submicronized, and Rondec [Brompheniramine-Pseudoephedrin] MEDICATIONS NITROFURANTOIN ORAL Take by mouth as needed. CRANBERRY ORAL Take by mouth. estradiol 0.01 % (0.1 mg/g) vaginal cream Apply pea-sized amount to urethral opening twice a week. multivitamin ORAL tablet Take 1 tablet by mouth once daily. azithromycin (ZITHROMAX Z-KAREN) 250 mg tablet Take 2 tablets day one, then, 1 tablet daily until gone. melatonin 1 mg tablet Take by mouth. (Patient not taking: Reported on 11/22/2023) FAMILY HISTORY Problem Relation Age of Onset Breast Cancer Mother CHF age of breast cancer 60's Breast Cancer Sister late 50's, Cancer Sister BRAIN age 70 Breast Cancer Maternal Grandmother Social History Tobacco Use Smoking status: Never Smokeless tobacco: Never Vaping Use Vaping Use: Never used Substance Use Topics Alcohol use: Yes Comment: Seldom Drug use: No Review of Systems Constitutional: Positive for activity change, chills, fatigue, fever and malaise/fatigue. Negative for appetite change. HENT: Positive for ear pain, rhinorrhea, sinus pressure, sinus pain and sore throat. Negative for ear discharge. Eyes: Positive for itching. Negative for pain, discharge and redness. Respiratory: Positive for cough. Negative for chest tightness and shortness of breath. Cardiovascular: Negative for chest pain and dyspnea on exertion. Gastrointestinal: Negative for abdominal pain, diarrhea, nausea and vomiting. Musculoskeletal: Positive for myalgias. Skin: Negative for color change. Neurological: Positive for headaches. Negative for dizziness and light-headedness. Objective BP 120/80 Pulse 88 Temp 37.6 C (99.7 F) Resp 16 Wt 76.2 kg (168 lb) SpO2 97% BMI 29.76 kg/m Physical Exam Vitals reviewed. Constitutional: General: She is awake. She is not in acute distress. Appearance: Normal appearance. She is normal weight. She is not ill-appearing, toxic-appearing or diaphoretic. HENT: Head: Normocephalic. Right Ear: Hearing, ear canal and external ear normal. No decreased hearing noted. No laceration, drainage, swelling or tenderness. A middle ear effusion is present. There is no impacted cerumen. No foreign body. No mastoid tenderness. No PE tube. No hemotympanum. Tympanic membrane is not injected, scarred, perforated, erythematous, retracted or bulging. Tympanic membrane has normal mobility. Left Ear: Hearing, tympanic membrane, ear canal and external ear normal. No decreased hearing noted. No laceration, drainage, swelling or tenderness. No middle ear effusion. There is no impacted cerumen. No foreign body. No mastoid tenderness. No PE tube. No hemotympanum. Tympanic membrane is not injected, scarred, perforated, erythematous, retracted or bulging. Tympanic membrane has normal mobility. Nose: Congestion present. No nasal deformity, septal deviation, signs of injury, laceration, nasal tenderness, mucosal edema or rhinorrhea. Right Nostril: No foreign body, epistaxis, septal hematoma or occlusion. Left Nostril: No foreign body, epistaxis, septal hematoma or occlusion. Right Turbinates: Swollen. Not enlarged or pale. Left Turbinates: Swollen. Not enlarged or pale. Right Sinus: No maxillary sinus tenderness or frontal sinus tenderness. Left Sinus: No maxillary sinus tenderness or frontal sinus tenderness. Mouth/Throat: Lips: [place]. No lesions. Mouth: Mucous membranes are moist. No oral lesions. Tongue: No lesions. Palate: No lesions. Pharynx: Oropharynx is clear. Uvula midline. Posterior oropharyngeal erythema present. No pharyngeal swelling, oropharyngeal exudate or uvula swelling. Tonsils: No tonsillar exudate or tonsillar abscesses. 1+ on the right. 1+ on the left. Eyes: General: Lids are normal. No allergic shiner or scleral icterus. Right eye: No discharge. Left eye: No discharge. Conjunctiva/sclera: Conjunctivae normal. Right eye: Right conjunctiva is not injected. No chemosis, exudate or hemorrhage. Left eye: Left conjunctiva is not injected. No chemosis, exudate or hemorrhage. Pupils: Pupils are equal, round, and reactive to light. Cardiovascular: Rate and Rhythm: Normal rate and regular rhythm. Pulses: Radial pulses are 2+ on the right side. Heart sounds: Murmur heard. Systolic murmur is present. No friction rub. No gallop. Comments: Louder with hand squeeze. Pulmonary: Effort: Pulmonary effort is normal. No tachypnea, bradypnea, accessory muscle usage, prolonged expiration or respiratory distress. Breath sounds: Normal breath sounds. No stridor or decreased air movement. No decreased breath sounds, wheezing, rhonchi or rales. Chest: Chest wall: No tenderness. Musculoskeletal: General: Normal range of motion. Cervical back: Normal range of motion. Tenderness present. Lymphadenopathy: Head: Right side of head: Submental adenopathy present. Left side of head: Submental adenopathy present. Cervical: No cervical adenopathy. Skin: General: Skin is warm and dry. Capillary Refill: Capillary refill takes less than 2 seconds. Findings: No rash. Neurological: General: No focal deficit present. Mental Status: She is alert and oriented to person, place, and time. Mental status is at baseline. Motor: No weakness. Coordination: Coordination normal. Gait: Gait normal. Psychiatric: Mood and Affect: Mood normal. Behavior: Behavior normal. Behavior is cooperative. Thought Content: Thought content normal. Judgment: Judgment normal. Assessment and Plan ASSESSMENT/PLAN: 1. Acute cough - ICD9: 786.2, ICD10: R05.1 (primary diagnosis) - Acute onset URI symptoms for 6 days including dry cough, fatigue, fever, and body aches. - LCTA, systolic murmur, right TM WDL, purulence behind left TM, pharynx erythematous, no exudate, submental lymphadenopathy - history of pneumonia - Suspect viral URI, rule-out pneumonia - XR CHEST 2V FRONTAL/LAT- No acute radiographic abnormality. Stable mild right greater than left biapical pleural thickening. No consolidation. No lung mass. No pleural effusion. No pneumothorax. - Patient updated with x-ray results via telephone. 2. URI, acute - ICD9: 465.9, ICD10: J06.9 - Acute onset URI symptoms for 6 days - Well-appearing - LCTA - Suspect viral URI, rule-out pneumonia - Discussed viral etiology and rationale for treatment. - Symptomatic treatment with prn analgesia - Supportive care with fluids and rest - XR CHEST 2V FRONTAL/LAT- No acute radiographic abnormality. Stable mild right greater than left biapical pleural thickening. No consolidation. No lung mass. No pleural effusion. No pneumothorax. - COVID & INFLUENZA A/B & RSV NAAT, ROUTINE 3. Acute otitis media, right - ICD9: 382.9, ICD10: H66.91 - Acute onset left ear pain. URI symptoms for 6 days. Denies ear drainage - LCTA, right TM WDL, purulence behind left TM, tragus nontender bilaterally, submental lymphadenopathy - Will begin treatment with as per antibiotic as written, see orders. Due to allergies, start azithromycin - Supportive care with plenty of fluids, rest, and analgesia prn. Eliana Mcnair TEACHING PROVIDER (Physician/PA/PLYWOOD PATCHER) NOTE OF PERSONAL INVOLVEMENT IN CARE: I have personally seen and examined the patient and performed the medical decision-making components. I have reviewed the Advanced Practice Registered Nurse (PLYWOOD PATCHER) Student's documentation and verified the findings in the note as written. Any additions or changes are noted in bold/italics. Signature: Alicia Jurado Date: 11/22/2023 Time: 12:38 PM documented in this encounter [facility] 11-22-2023 History of Present illness Narrative Radiology Service Progress Note PATIENT NAME: Lauryn Bang DATE OF SERVICE: November 22, 2023 TIME: 12:06 PM PATIENT IDENTITY VERIFICATION COMPLETED USING TWO (2) IDENTIFIERS: Name and Date of confirmed by patient verbally. FALL SCREENING: Has the patient had 2 falls in the last year or 1 fall with injury or currently using an Ambulatory Assistive Device (Walker, Cane, Wheelchair, Crutches, etc.)? No PATIENT GENDER DATA: Female. status: : No status: NO. PATIENT RELEVANT IMPLANT DATA REVIEWED: Not Applicable PATIENT PRESENTS WITH AN IMPLANTABLE OR ATTACHED FLANGER: No RADIOLOGY DEPARTMENT: General X-ray: Exam(s) Completed: Chest X-Ray PERIPHERAL IV DATA: Not applicable SIGNED BY: RT Zina(Gonzalez) November 22, 2023 12:06 PM documented in this encounter [facility] 11-14-2023 History of Present illness Narrative POPULATION HEALTH NAVIGATION OUTREACH Action/FYI 11/14/23 Patient had establishing care appointment with provider on 07/18/23. PCP field updated. No further action required. Patient Identified by Name and : NO Outreach Outcome/Action PCP field updated Did you use a PCP flex slot to schedule this appointment? N/A Reason for Outreach Care Gap or Scheduling/Wellness visits Payer: Payor: [employer] MEDICARE / Plan: [employer] MEDICARE PPO / Product Type: PPO / Care Gap Reviewed:: N/A Reminder: Reminder note to check Health Maintenance for items below Health Maintenance items due: Shingrix Vaccine(1 of 2) Never done RSV Vaccine(1 - 1-dose 60+ series) Never done Pneumococcal Vaccine: 65+(1 of 1 - PCV) Never done Colorectal Cancer Screening due on 08/19/2020 Advance Directive Discussion Never done Depression Assessment Never done Navigation Signature: Regine Kapoor Population Health Navigator November 14, 2023 8:22 AM documented in this encounter [facility] 10-26-2023 Telephone encounter Note 12/07/[address] ORDER Krista Nelson Dope And Fabric Worker [facility] 10-26-2023 Miscellaneous Notes 12/07/[address] ORDER Krista Nelson Dope And Fabric Worker documented in this encounter [facility] 09-14-2023 Miscellaneous Notes Patient active MyChart. Patient notified via [employer]t message. Doreen Figueroa MA Please call patient and let her know her mammogram There is no mammographic evidence of malignancy. A 1 year screening mammogram is recommended. Ashlyn Keita APRN.CNP documented in this encounter [facility] 09-14-2023 Miscellaneous Notes September 15, 2023 PID: [id number] Lauryn Bang [address] [place] [address] Dear Ms. Bang, We are pleased to inform you that the results of your recent breast imaging exam on 09/13/2023 are normal. Your mammogram demonstrates that you have dense breast tissue, which could hide abnormalities. Dense breast tissue, in and of itself, is a relatively common condition. Therefore, this information is not provided to cause undue concern; rather, it is to raise your awareness and promote discussion with your health care provider regarding the presence of dense breast tissue in addition to other risk factors. Early detection of cancer is very important. We also understand recommendations regarding breast cancer screening are controversial. Please discuss with your primary care provider which strategy is best for you and whether a mammogram is right for you. Your imaging studies and report will be kept on file at [facility] as part of your permanent medical record and are available for your continuing care. Thank you for allowing us to help in meeting your health care needs. Sincerely, Dr. Loera Interpreting Radiologist [facility] (Normal over 40) documented in this encounter [facility] 09-13-2023 History of Present illness Narrative Radiology Service Progress Note PATIENT NAME: Lauryn Bang DATE OF SERVICE: September 13, 2023 TIME: 10:51 AM PATIENT IDENTITY VERIFICATION COMPLETED USING TWO (2) IDENTIFIERS: Name and Date of confirmed by patient verbally. FALL SCREENING: Has the patient had 2 falls in the last year or 1 fall with injury or currently using an Ambulatory Assistive Device (Walker, Cane, Wheelchair, Crutches, etc.)? No PATIENT GENDER DATA: Female. status: : No status: NO. PATIENT RELEVANT IMPLANT DATA REVIEWED: Not Applicable RADIOLOGY DEPARTMENT: Mammography PERIPHERAL IV DATA: Not applicable SIGNED BY: RT Russel(R) September 13, 2023 10:51 AM documented in this encounter [facility] 07-27-2023 Miscellaneous Notes Phoned patient and went over results, notes from Dr Bautista with understanding. ----- Message from Perry Bautista MD sent at 07/27/2023 8:49 AM EDT ----- Repeat magnesium level normal. No changes to regimen. documented in this encounter [facility] 07-18-2023 Instructions PodlogarAshlyn APRN.METALLURGICAL ENGINEERING TECHNICIAN - 07/18/2023 11:32 AM EDT Images from the original note were not included. Bowel Preparation Instructions for: Miralax-Gatorade Preparations IF YOU DO NOT FOLLOW THESE DIRECTIONS, YOUR COLONOSCOPY WILL BE CANCELLED. Peter Instructions: Your bowel must be empty so that your doctor can clearly view your colon. Follow all of the instructions in this handout EXACTLY as they are written. Do NOT eat any solid food the ENTIRE day before your colonoscopy. Buy your bowel preparation at least 5 days before your colonoscopy. Four (4) Dulcolax laxative tablets containing 5mg of bisacodyl each (NOT Dulcolax stool softener) One (1) 8.3oz. bottle Miralax (238 grams) or generic equivalent 2 x 32oz. Bottles of Gatorade (NOT RED) Diabetic Patients: Use G2 (Gatorade 2) TRANSPORTATION on the Day of Your Exam A responsible adult MUST be present with you at Check In prior to your colonoscopy and REMAIN in the endoscopy area until you are discharged. You are NOT ALLOWED to drive, take a taxi or bus, or leave the Endoscopy Center ALONE. If you do not have a responsible straight truck driver (family member or friend) with you to take you home, your exam cannot be done with sedation and will be cancelled. Please bring a list of all of your current medications, including any Utka-[id number]-[id number] medications with you. Medications If you take insulin, diabetic medications or blood thinners such as Coumadin (warfarin), Plavix (clopidogrel), Ticlid (ticlopidine hydrochloride), Agrylin (anagrelide), Xarelto (Rivaroxaban), Pradaxa (Dabigatran), Eliquis (Apixaban), and Effient (Prasugrel). You MUST call the doctors who orders those medicines for instructions on altering the dosage before your colonoscopy. All other medications should be taken the day of the exam with a sip of water including ASPIRIN. Five (5) Days Before Your Colonoscopy Do NOT take medicines that stop diarrhea - such as Imodium, Kaopectate, or Pepto Bismol. Do NOT take fiber supplements - such as Metamucil, Citrucel, or Perdiem. Do NOT take products that contain iron - such as multi-vitamins (the label lists what is in the products). Three (3) Days Before Your Colonoscopy Do NOT eat high-fiber foods - such as popcorn, beans, seeds (flax, sunflower, quinoa), multigrain bread, nuts, salad/vegetables, or fresh and dried fruit. 1 Bowel Preparation Instructions for: Miralax-Gatorade Preparations One (1) Day Before Your Colonoscopy Only drink clear liquids the ENTIRE DAY before your colonoscopy. Do NOT eat any solid foods. Drink at least 8 ounces of clear liquids every hour after waking up. The clear liquids you can drink include: Clear Liquid (NO RED LIQUIDS) DO NOT DRINK Gatorade, Pedialyte or Powerade Clear broth or bouillon Coffee or tea (no milk or non-dairy creamer) Carbonated and non-carbonated soft drinks Merrick-Aid or other fruit flavored drinks Strained fruit juices (no pulp) Jell-O, popsicles, hard candy Water Alcohol Milk or non-dairy creamers Noodles or vegetables in soup Juice with pulp Liquid you cannot see through Do not use tobacco/vaping products Mix 1/2 of Miralax bottle (119 grams) in each 32 ounces of Gatorade bottle until dissolved. Keep cool in the refrigerator. DO NOT ADD ICE. The bowel preparation solution will be consumed in two parts. Part 1 5:00 PM - Evening before your colonoscopy Take 4 Dulcolax tablets. 6 PM - Evening before your colonoscopy Drink 32 oz. of the mixed solution. Drink an 8 oz. glass of bowel preparation every 15 minutes for a total of 4 glasses. Fifteen (15) minutes later, drink an 8 oz. glass of of clear liquids every 15 minutes for a total of 2 glasses. You may continue to drink clear liquids till midnight. Part 2 On the day of your colonoscopy you may drink clear liquids up to (three) 3 hours prior to procedure. 4 1/2 hours before your colonoscopy Take another 32 oz. bottle of mixed solution. Drink an 8 oz. glass of bowel prep every 15 minutes for a total of 4 glasses. Fifteen (15) minutes later, drink an 8 oz. glass of clear liquids every 15 minutes for a total of 2 glasses. You may continue to drink clear liquids up to (three) 3 hours before your exam. 2 09/2019 documented in this encounter [facility] 07-18-2023 History of Present illness Narrative 07/18/2023 Patient presents with: Establish Care SUBJECTIVE: This is a 72 year old that is here today for Above Complaints.. Recurrent UTI: sees Dr. Melton. Take nitrofurantion as needed Followed recently with assembly technician. Has scheduled follow-up in October. No medication changes made Past medical, surgical, family, social hx, medications, allergies and health maintenance reviewed and updated. PAST MEDICAL HISTORY Diagnosis Date Benign neoplasm of colon Diaphragmatic hernia without mention of obstruction or gangrene takes tums Frequent UTI Dr. 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 melatonin 1 mg tablet Take by mouth. CRANBERRY ORAL Take by mouth. estradiol 0.01 % (0.1 mg/g) vaginal cream Apply pea-sized amount to urethral opening twice a week. AZO CRANBERRY (CRANBERRY EXT-C-L. SPOROGENES) 450-30-50 [id number] tab Take by mouth. (Patient not taking: Reported on 07/03/2023) multivitamin ORAL tablet Take 1 tablet by mouth once daily. No current facility-administered medications for this visit. Medications and allergies reviewed by this provider. SOCIAL HISTORY Social History Tobacco Use Smoking status: Never Smokeless tobacco: Never Vaping Use Vaping Use: Never used Substance Use Topics Alcohol use: Yes Comment: Seldom Drug use: No REVIEW OF SYSTEMS All other reviewed and negative other than HPI. OBJECTIVE: BP 118/76 Pulse 74 Resp 16 Ht 160.6 cm (5' 3.23) Wt 75.8 kg (167 lb 3.2 oz) SpO2 97% BMI 29.40 kg/m . Vital signs reviewed by this provider. APPEARANCE Well appearing, alert, in no acute distress, well-hydrated, well nourished. Component Latest Ref Rng & Units 06/30/2023 WBC 3.70 - 11.00 k/uL 5.18 RBC 3.90 - 5.20 m/uL 4.65 Hemoglobin 11.5 - 15.5 g/dL 14.0 Hematocrit 36.0 - 46.0 % 43.8 MCV 80.0 - 100.0 fL 94.2 MCH 26.0 - 34.0 pg 30.1 MCHC 30.5 - 36.0 g/dL 32.0 RDW-CV 11.5 - 15.0 % 13.7 Platelet Count 150 - 400 k/uL 174 MPV 9.0 - 12.7 fL 12.3 Neut% % 58.1 Abs Neut (ANC) 1.45 - 7.50 k/uL 3.01 Lymph% % 30.7 Abs Lymph 1.00 - 4.00 k/uL 1.59 Trousdale% % 8.7 Abs [place]dale <0.87 k/uL 0.45 Eosin% % 1.9 Abs Eosin <0.46 k/uL 0.10 Baso% % 0.4 Abs Baso <0.11 k/uL <0.03 Immature Gran % % 0.2 IMMATURE GRANS (ABS) <0.10 k/uL <0.03 NRBC /100 WBC 0.0 Absolute nRBC <0.01 k/uL <0.01 DTYPE Auto Protein, Total 6.3 - 8.0 g/dL 7.0 Albumin 3.9 - 4.9 g/dL 4.4 Calcium 8.5 - 10.2 mg/dL 10.0 Bilirubin, Total 0.2 - 1.3 mg/dL 0.4 Alkaline Phosphatase 34 - 123 U/L 96 AST 13 - 35 U/L 27 ALT 7 - 38 U/L 23 Glucose 74 - 99 mg/dL 88 BUN 7 - 21 mg/dL 18 Creatinine 0.58 - 0.96 mg/dL 0.84 Sodium 136 - 144 mmol/L 139 Potassium 3.7 - 5.1 mmol/L 5.0 Chloride 97 - 105 mmol/L 102 CO2 22 - 30 mmol/L 24 Anion Gap 9 - 18 mmol/L 13 eGFR >=60 mL/min/1.73m 74 Total Cholesterol, Nonfasting <200 mg/dL 176 Triglycerides, Nonfasting <150 mg/dL 101 HDL Cholesterol, Nonfasting >39 mg/dL 49 LDL Cholesterol, Nonfasting <100 mg/dL 107 (H) Non HDL Cholesterol, Nonfasting <130 mg/dL 127 VLDL Cholesterol, Nonfasting <30 mg/dL 20 Total Chol/HDL Ratio, Nonfasting <5.10 mg/dL 3.59 LDL/HDL Ratio, Nonfasting <2.54 mg/dL 2.18 Magnesium 1.7 - 2.3 mg/dL 2.4 (H) TSH 0.270 - 4.200 mIU/L 0.684 The 10-year ASCVD risk score (Juan M DK, et al., 2019) is: 8.9% Values used to calculate the score: Age: 72 years Sex: Female Is Non- : No Diabetic: No Tobacco smoker: No Systolic Blood Pressure: 118 mmHg Is BP treated: No HDL Cholesterol: 49 mg/dL Total Cholesterol: 176 mg/dL ASSESSMENT/PLAN: 1. Encounter to establish care - ICD9: V65.8, ICD10: Z76.89 (primary diagnosis) - follow-up in one year, sooner if needed 2. Screening for colon cancer - ICD9: V76.51, ICD10: Z12.11 - CONSULT TO GENERAL SURGERY 3. Encounter for screening mammogram for breast cancer - ICD9: V76.12, ICD10: Z12.31 - TINO SCREENING 4. Hyperlipidemia, mixed - ICD9: 272.2, ICD10: E78.2 - discussed risk score, patient is going to work on diet and excercise - Counseled on healthy diet and regular exercise - Follow up in 1 year, sooner should any other issues arise. Ashlyn Keita APRN.CNP Prescription instructions reviewed with patient as applicable. Patient advised if symptoms do not improve or if symptoms worsen sooner, to contact their primary care physician. Potential red flag symptoms discussed with the patient. Reviewed appropriate action plan to take if red flag symptoms occur. Patient agreeable to treatment plan. I spent a total of 25 minutes on the date of the service which included preparing to see the patient, [id number] patient care, completing clinical documentation, obtaining and/or reviewing separately obtained history, performing a medically appropriate examination, counseling and educating the patient/family/caregiver, and ordering medications, tests, or procedures. documented in this encounter [facility] 06-30-2023 History of Present illness Narrative Radiology Service Progress Note PATIENT NAME: Lauryn Bang DATE OF SERVICE: June 30, 2023 TIME: 11:29 AM PATIENT IDENTITY VERIFICATION COMPLETED USING TWO (2) IDENTIFIERS: Name and Date of confirmed by patient verbally. FALL SCREENING: Has the patient had 2 falls in the last year or 1 fall with injury or currently using an Ambulatory Assistive Device (Walker, Cane, Wheelchair, Crutches, etc.)? No PATIENT GENDER DATA: Female. status: : No status: NO. PATIENT RELEVANT IMPLANT DATA REVIEWED: Yes RADIOLOGY DEPARTMENT: General X-ray: Exam(s) Completed: Chest X-Ray PERIPHERAL IV DATA: Not applicable SIGNED BY: RT James(R) June 30, 2023 11:29 AM documented in this encounter [facility] 06-30-2023 History of Present illness Narrative 06/30/2023 Patient presents with: Chest Pain: And left breast pain. Was infrequent but has become constant. SUBJECTIVE: This is a 72 year old that is here today for Above Complaints.. Chest pain: for years has had chest pain that has worsened over the last year. Pain located mid left chest at times can radiate to her neck. When lays down pain can be under her left breast. Described as dull. Not aggravated when exercising. Also admits to heart racing at times. Last about 20 seconds. Admits to some SOB with palpitations. Denies accompanying diaphoresis, jaw/back pain, dyspnea, nausea or vomiting. In general she feels fatigued PAST MEDICAL HISTORY Diagnosis Date Benign neoplasm of colon Diaphragmatic hernia without mention of obstruction or gangrene takes tums Frequent UTI Dr. 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 CRANBERRY ORAL Take by mouth. Hydrogen Peroxide (PEROXYL) 1.5 % soln Use 5 mL as instructed once daily. diphenhydramine HCl (UNISOM SLEEPMELTS ORAL) Take by mouth. estradiol 0.01 % (0.1 mg/g) vaginal cream Apply pea-sized amount to urethral opening twice a week. AZO CRANBERRY (CRANBERRY EXT-C-L. SPOROGENES) 450-30-50 [id number] tab Take by mouth. multivitamin ORAL tablet Take 1 tablet by mouth once daily. No current facility-administered medications for this visit. Medications and allergies reviewed by this provider. SOCIAL HISTORY Social History Tobacco Use Smoking status: Never Smokeless tobacco: Never Vaping Use Vaping Use: Never used Substance Use Topics Alcohol use: Yes Comment: Seldom Drug use: No REVIEW OF SYSTEMS All other reviewed and negative other than HPI. OBJECTIVE: BP 116/78 Pulse 88 Resp 16 Ht 160.6 cm (5' 3.23) Wt 75.3 kg (166 lb) SpO2 92% BMI 29.19 kg/m . Vital signs reviewed by this provider. APPEARANCE Well appearing, alert, in no acute distress, well-hydrated, well nourished. EYES PERRLA, conjunctiva and sclera normal. HEART RRR with normal S1 and S2, no gallops, no JVD appreciated and Murmur 3/6 murmur ULSB LUNG clear to auscultation. No wheezes, rhonchi or rales EXTREMITIES Extremities normal, No deformities, No skin discoloration, and No edema SKIN Skin color, texture, turgor normal, no suspicious rashes or lesions Shingrix Vaccine(1 of 2) Never done Pneumococcal Vaccine: 65+(1 - PCV) Never done Colorectal Cancer Screening due on 08/19/2020 Covid-19 Vaccine(3 - Pfizer series) due on 02/25/2021 Advance Directive Discussion Never done Depression Assessment Never done Influenza Vaccine(1) due on 06/09/2023 Mammogram Screening due on 08/18/2023 Diabetes Screening due on 09/15/2024 Lipid Screening due on 10/16/2024 DTaP,Tdap,Td Vaccine(2 - Td or Tdap) due on 09/04/2029 Bone Density Screening Completed Hepatitis C Screening Completed ASSESSMENT/PLAN: 1. Chest pain, unspecified type - ICD9: 786.50, ICD10: R07.9 (primary diagnosis) - no red flag symptoms or exam finding - red flag symptoms discussed, verbalizes understanding - ECG COMPLETE - XR CHEST 2V FRONTAL/LAT - ECHO - PERFLUTREN LIPID MICROSPHERES 1.1 MG/ML INJECTION IN NS 10 ML - SODIUM CHLORIDE 0.9 % (FLUSH) INJECTION SYRINGE - EXERCISE STRESS ECG (WITHOUT IMAGING) - CONSULT TO CARDIOLOGY - COMP METABOLIC PANEL - MAGNESIUM BLD - LIPID PANEL, NONFASTING - CBC + DIFF EKG RESULTS: normal sinus rhythm voltage criteria for left ventricular hypertrophy - needs to make follow-up to establish care, to ER with red flag symptoms 2. Mitral valve insufficiency, unspecified etiology - ICD9: 424.0, ICD10: I34.0 - ECHO - PERFLUTREN LIPID MICROSPHERES 1.1 MG/ML INJECTION IN NS 10 ML - SODIUM CHLORIDE 0.9 % (FLUSH) INJECTION SYRINGE - AMYL NITRITE 0.3 ML SOLUTION FOR INHALATION - plan as in #1 3. Palpitations - ICD9: 785.1, ICD10: R00.2 - plan as in #1 - TSH BLD - CBC + DIFF 4. Screening for hyperlipidemia - ICD9: V77.91, ICD10: Z13.220 - LIPID PANEL, NONFASTING 5. Fatigue, unspecified type - ICD9: 780.79, ICD10: R53.83 - plan as in #1 - COMP METABOLIC PANEL - TSH BLD - CBC + DIFF Ashlyn Keita APRN.METALLURGICAL ENGINEERING TECHNICIAN Prescription instructions reviewed with patient as applicable. Patient advised if symptoms do not improve or if symptoms worsen sooner, to contact their primary care physician. Potential red flag symptoms discussed with the patient. Reviewed appropriate action plan to take if red flag symptoms occur. Patient agreeable to treatment plan. I spent a total of 30 minutes on the date of the service which included preparing to see the patient, [id number] patient care, completing clinical documentation, obtaining and/or reviewing separately obtained history, performing a medically appropriate examination, counseling and educating the patient/family/caregiver, and ordering medications, tests, or procedures. documented in this encounter [facility] 04-20-2023 Note HNO ID: [id number] Author: Edith Low LPN Service: ? Author Type: LICENSED NURSE Type: Progress Notes Filed: 04/20/2023 2:10 PM Note Text: Review of Systems Constitutional: Negative for activity change, chills, fever and unexpected weight change. Gastrointestinal: Negative for bowel retention or incontinence Genitourinary: Negative for difficulty urinating. Negative for bladder retention or incontinence Musculoskeletal: Positive for back pain and myalgias. Negative for arthralgias, gait problem, joint swelling, neck pain and neck stiffness. Neurological: Negative for weakness, numbness and headaches. Psychiatric/Behavioral: Negative for dysphoric mood, sleep disturbance and suicidal ideas. The patient is not nervous/anxious. [facility] 04-20-2023 History of Present illness Narrative Review of Systems Constitutional: Negative for activity change, chills, fever and unexpected weight change. Gastrointestinal: Negative for bowel retention or incontinence Genitourinary: Negative for difficulty urinating. Negative for bladder retention or incontinence Musculoskeletal: Positive for back pain and myalgias. Negative for arthralgias, gait problem, joint swelling, neck pain and neck stiffness. Neurological: Negative for weakness, numbness and headaches. Psychiatric/Behavioral: Negative for dysphoric mood, sleep disturbance and suicidal ideas. The patient is not nervous/anxious. Images from the original note were not included. [facility] Name: Lauryn Bang : 1950 Purpose: 2 month follow-up Today's Date: 04/20/2023 Last Visit: 02/02/2023 Chief complaint: low back pain Lauryn Bang is an established patient, returning today for continued evaluation and management of the chief complaint noted above. Interval History: Overall pain and functional disability: improved New Complaints: none She has been able to sit for longer periods - she is able to sit for commutes and for flights. Still with pain with prolonged standing and with flexion. Pain Description: Timing: intermittent Character: sharp and stabbing, aching Primary Location: axial low back, right > left Radiation: none Exacerbating factors: sitting Relieving factors: changing positions Interferes with: sitting and social activities The patient denies difficulty with bowel or bladder control, unintentional weight loss, and fevers, chills, or night sweats. Medications Prescribed: Started or modified: none Discontinued: Celebrex 200mg BID PRN - helped; but has not continued, tolerated better Zanaflex - did not take Maintained at current dosages: Tolerating Medication: yes Medications helping improve ADL's and Self-care: yes Procedures Performed: DATE PROCEDURE IMPROVEMENT none Therapies Attended: PT 6 visits have been attended Treatment dates: Between 11/18/2022 and 01/25/2023 Improvement in pain and function: yes Studies Obtained: MRI (relevant findings reported below) Notable Events During Course of Treatment: 11/16/2022 - Initial HPI: Referred by Ashlyn Keita APRN.AYAH , for evaluation & management of low back pain Duration: 2 months Sudden onset? yes, Trauma? No She was sitting on a wooden religion pew for about 90 minutes, had sudden onset of low back pain after she started walking around. Pain worsened over several days. Seen in [facility] on 09/26. She was given Prednisone and Flexeril, which did not help. Prior Treatments: Medications (See below), Injections (See below), Modalities (eg. Heat, Ice), Physical Therapy , Home Exercise Program , and Activity Modification 6 PT visits between 10/21/2022 and 11/15/2022 Therapy was helping, then on Monday felt she took a step backwards. INTAKE PAIN ASSESSMENT 02/02/2023 03/17/2023 Are you having pain associated with your visit today? Yes, Provider notified No Pain Scales Verbal (Numeric Rating or Visual Analog Scale) - Pain Level 0 - Pain Location Back-Lower - Description Shooting;Sharp - Duration Amount of Time - - Duration Units Months - Frequency Intermittent - Intervention/Comfort measure Reposition;Relaxation;Positioning - Pain Assessment - - Medications: CURRENT Pain Medications: none Pain Medications Taken TO DATE (for the chief complaint(s)): Membrane Stabilizers: none NSAIDS: Motrin (Ibuprofen) and Mobic (Meloxicam) - Mobic helped initially, but caused GI Upset Opioids: Vicodin or [place] (Hydrocodone) Muscle Relaxants: Flexeril (Cyclobenzaprine) - no relief Topicals: none Other Prescription or OTC Pain Medications: none Anti-depressants: Effexor Non-Pain Meds of Note: none Allergies: ALLERGIES Allergen Reactions Augmentin [Amoxicil* Diarrhea Bactrim [Sulfametho* GI Upset Doxycycline Rash Erythromycin unknown Meloxicam Submicron* GI Upset Rondec [Bromphenira* unknown Compliance: PDMP website checked and validated. All prescriptions have been APPROPRIATELY filled. No suspicious activity was identified. On 04/20/2023 by Leonard Poe MD Recent Drug screens: [facility] SPINE COMBINATION 11/17/2022 Questionnaire GREENLIGHT Completed Date 11/17/2022 Questionnaire Opiod Risk Tool Completed Date 11/17/2022 Comments 0 Risk Assessment: IRINA-7: IRINA - 7 SCORES 11/17/2022 IRINA-7 Score 0 (0-4) minimal anxiety, (5-9) mild anxiety, (10-14) moderate anxiety, (15-21) severe anxiety PHQ-9: PHQ-9 11/17/2022 Score 0 (0-4) minimal depression, (5-9) mild depression, (10-14) moderate depression, (15-19) moderately severe depression, (20-27) severe depression Opioid Risk Tool: Family History of Substance Abuse: 0 - No Personal History of Substance Abuse: 0 - No Age between 16-45: 0 - No History of Pre-Adolescence Sexual Abuse: 0 - No Psychological Disease: 0 - No Risk Total: 0 Total Score Risk Category: Low Risk 0-3 (0-3, low risk or no risk; 4-7, moderate risk, 8+, high risk) Diagnostic Studies: Relevant Imaging: Reviewed Personally on today's date, noted above MRI Spine Report MRI LUMBAR SPINE WO IVCON Exam End: 03/02/2023 10:32 AM (Final result) Narrative: * * *Final Report* * * DATE OF EXAM: Mar 02 2023 10:30AM [facility] 0303 - MRI LUMBAR SPINE WO IVCON / PROCEDURE REASON: Spinal stenosis of lumbar region without neurogenic claudication * * * * Physician Interpretation * * * * EXAMINATION: MRI LUMBAR SPINE WO IVCON CLINICAL HISTORY: Spinal stenosis of lumbar region without neurogenic claudication TECHNIQUE: Routine lumbosacral spine MR protocol without gadolinium. MQ: [id number] COMPARISON: None. RESULT: Counting reference: Lumbosacral junction. For the purposes of this report, L4-5 is considered the level of the iliac crest and there are 5 lumbar-type vertebrae. Anatomic variant: Transitional lumbarized S1 vertebral body. Localizer images: High T2 signal lesion within the right kidney and multiple within the liver consistent with cysts. Parapelvic cysts on the left side. Alignment: Minimal degenerative grade 1 anterolisthesis of S1 on S2. Alignment is otherwise anatomic. Bone marrow signal/fracture: No evidence of pathologic marrow infiltration. No evidence of prior fracture. Conus: The conus is within normal limits of signal intensity and morphology. Paraspinal soft tissues: Paraspinal soft tissues are within normal limits. Lower thoracic spine: Visualized lower thoracic canal and foramina are patent. L1-L2: Canal and foramina are patent. L2-L3: Canal and foramina are patent L3-L4: Mild disc bulge. No significant canal or foraminal stenosis. L4-L5: Canal and foramina are patent L5-S1: Mild disc bulge and facet hypertrophy with mild bilateral foraminal stenosis. No significant canal narrowing. S1-2: Mild anterolisthesis with disc bulge and facet hypertrophy resulting mild bilateral foraminal stenosis, right greater than left. Sacrum and iliac wings: The visualized sacrum and iliac wings are within normal limits. Impression: IMPRESSION: Mild degenerative changes of the lumbar spine as discussed level by level in body of the report. No severe canal or severe foraminal stenosis. Anatomic Lumbar Variant: Transitional lumbarized S1 vertebral body. L4-5 is considered the level of the iliac crest and there are 5 lumbar-type vertebrae. Accident Examiner: CAMI Transcribe Date/Time: Mar 02 2023 11:14A Dictated by : DAISY BARRIOS MD This examination was interpreted and the report reviewed and electronically signed by: DAISY BARRIOS MD on Mar 02 2023 11:17AM EST X-ray Lumbar Spine 10/2022 Exaggerated lumbar lordosis with low-grade spondylolisthesis of L4 and L5. No compression fracture. Mild disc space narrowing at L5/S1. Degenerative changes lower facet joints. X-ray Left Hip 10/2022 Well-maintained with normal shape of the femoral head. No fracture. Bony pelvis intact. X-ray Right Foot 03/2022 No acute fracture or dislocation identified. Dorsal calcaneal enthesophyte. X-ray Wrist Left 11/2020 Electrodiagnostic Study (EMG): None Pain Procedures: DATE PROCEDURE IMPROVEMENT None Current Medications, Past Medical History, Past Surgical History, Family History, Social History and Review of Systems: On today's date, noted above, I have confirmed and edited as necessary, the PFSH and ROS obtained by others. Physical Exam: 04/20/23 1329 Pulse: 83 Resp: 16 SpO2: 95% Constitutional:normal weight Eyes: Conjunctiva clear. No discharge from eyes Cardiovascular: Appears well perfused Lymphatic: No visible regional lymphadenopathy Skin: No visible rashes or ecchymosis Psychiatric: Full affect, Alert, Pleasant Neuro-Lower: Neural Tension Signs: Negative slump in Bilateral lower limbs Sensation: intact to light touch in the L2-S2 Bilateral lower limb dermatomes Muscle Tone: Normal and symmetric throughout without clonus Strength: Iliopsoas (L2): 5 Left, 5 Right Quadriceps (L3) 5 Left, 5 Right Anterior Tibialis (L4): 5 Left, 5 Right Extensor Hallucis Longus (L5): 5 Left, 5 Right Gastrocnemius (S1): 5 Left, 5 Right Reflexes: Decreased 1+ and symmetric Patellar, Achilles Musculoskeletal-Lower: Inspection: Symmetric without atrophy Palpation: Lumbar Paraspinal Tenderness: Concordant on Bilateral side(s) Paraspinal Spasms: Moderate PSIS Tenderness: None on Bilateral side(s) Greater Trochanter Tenderness: None on Bilateral side(s) Spine Range of Motion: Flexion: Decreased 25% Without end range pain Extension: Decreased 25% With end range pain Combination extension and rotation pain: None Hip Range of Motion: Right Hip: Internal Rotation: Normal; Pain at end range: None External Rotation: Normal; Pain at end range: None Left Hip: Internal Rotation: Normal; Pain at end range: None External Rotation: Normal; Pain at end range: None Sacroiliac Maneuvers: Deferred Diagnoses: (M48.061) Spinal stenosis, lumbar region, without neurogenic claudication (primary encounter diagnosis) (M43.16) Spondylolisthesis of lumbar region (M54.16) Lumbar radiculopathy (M47.816) Lumbar spondylosis Pertinent Past Medical History: Heart murmur, Benign neoplasm of colon, Chronic interstitial cystitis, Nontoxic multinodular goiter, Enlarged thyroid gland, Multiple thyroid nodules, Contact dermatitis and other eczema, Osteoporosis, Lumbar pain, Left hip pain, Ganglion cyst. Impression: 72 year old female presents with complaint(s) of subacute axial low back pain, x-ray showing spondylolisthesis at L4-5 and L5-S1. PT with modest improvement so far, but still having pain with activity that is limiting her quality of life. No relief with oral steroids. MRI shows facet arthropathy. Plan: Lauryn Bang would benefit from the following to reach personal goals for decreasing pain, improving function and work participation, and/or improving quality of life: -Interventional Procedure: none The risks, benefits, alternative treatment options and prognosis of the procedure were discussed and all of the patient's questions/concerns were addressed to the patient s satisfaction. Patient was advised that they will need a straight truck driver for after the procedure and that if no straight truck driver is available and on site at the time of the procedure, the procedure will be cancelled. For any anticoagulants, the patient was advised on whether to continue or hold for this procedure. The patient expressed understanding and gave verbal consent to proceed. Medication(s): None Additional Studies: Allergy testing - reports historical reaction to Lidocaine (added to allergies), will try getting tolerance testing to Lidocaine, Bupivacaine and ELEVATOR MECHANIC Referrals: No additional considerations at present Functional Mu-Ism: Home Exercise Program: continue Depending on response to the above plan, consider: MBB/RFA L4-5,5-S1 (discussed; will consider) -Follow-up: PRN basis Attribution: In addition to reviewing the information noted above, some elements copied from my most recent clinical note(s), including the physical exam (completed in entirety today), and the impression and plan sections, have been updated where appropriate. All reflect current medical decision making from today's date. Leonard Poe MD Pain Management [facility] documented in this encounter [facility] 04-19-2023 Note HNO ID: [id number] Author: Leonard Poe MD Service: ? Author Type: Physician Type: Progress Notes Filed: 04/20/2023 2:10 PM Note Text: [facility] Name: Lauryn Bang : 1950 Purpose: 2 month follow-up Today's Date: 04/20/2023 Last Visit: 02/02/2023 Chief complaint: low back pain Lauryn Bang is an established patient, returning today for continued evaluation and management of the chief complaint noted above. Interval History: Overall pain and functional disability: improved New Complaints: none She has been able to sit for longer periods - she is able to sit for commutes and for flights. Still with pain with prolonged standing and with flexion. Pain Description: Timing: intermittent Character: sharp and stabbing, aching Primary Location: axial low back, right > left Radiation: none Exacerbating factors: sitting Relieving factors: changing positions Interferes with: sitting and social activities The patient denies difficulty with bowel or bladder control, unintentional weight loss, and fevers, chills, or night sweats. Medications Prescribed: Started or modified: none Discontinued: Celebrex 200mg BID PRN - helped; but has not continued, tolerated better Zanaflex - did not take Maintained at current dosages: Tolerating Medication: yes Medications helping improve ADL's and Self-care: yes Procedures Performed: DATE PROCEDURE IMPROVEMENT none Therapies Attended: PT 6 visits have been attended Treatment dates: Between 11/18/2022 and 01/25/2023 Improvement in pain and function: yes Studies Obtained: MRI (relevant findings reported below) Notable Events During Course of Treatment: 11/16/2022 - Initial HPI: Referred by Ashlyn Keita APRN.CNP , for evaluation AND management of low back pain Duration: 2 months Sudden onset? yes, Trauma? No She was sitting on a wooden religion pew for about 90 minutes, had sudden onset of low back pain after she started walking around. Pain worsened over several days. [facility]en in [facility] on 09/[facility]. She was given Prednisone and Flexeril, which did not help. Prior Treatments: Medications (See below), Injections (See below), Modalities (eg. Heat, Ice), Physical Therapy , Home Exercise Program , and Activity Modification 6 PT visits between 10/21/2022 and 11/15/2022 Therapy was helping, then on Monday felt she took a step backwards. INTAKE PAIN ASSESSMENT 02/02/2023 03/17/2023 Are you having pain associated with your visit today? Yes, Provider notified No Pain Scales Verbal (Numeric Rating or Visual Analog Scale) - Pain Level 0 - Pain Location Back-Lower - Description Shooting;Sharp - Duration Amount of Time - - Duration Units Months - Frequency Intermittent - Intervention/Comfort measure Reposition;Relaxation;Positioning - Pain Assessment - - Medications: CURRENT Pain Medications: none Pain Medications Taken TO DATE (for the chief complaint(s)): Membrane Stabilizers: none NSAIDS: Motrin (Ibuprofen) and Mobic (Meloxicam) - Mobic helped initially, but caused GI Upset Opioids: Vicodin or [place] (Hydrocodone) Muscle Relaxants: Flexeril (Cyclobenzaprine) - no relief Topicals: none Other Prescription or OTC Pain Medications: none Anti-depressants: Effexor Non-Pain Meds of Note: none Allergies: ALLERGIES Allergen Reactions Augmentin [Amoxicil* Diarrhea Bactrim [Sulfametho* GI Upset Doxycycline Rash Erythromycin unknown Meloxicam Submicron* GI Upset Rondec [Bromphenira* unknown Compliance: PDMP website checked and validated. All prescriptions have been APPROPRIATELY filled. No suspicious activity was identified. On 04/20/2023 by Leonard Poe MD Recent Drug screens: AG SPINE COMBINATION 11/17/2022 Questionnaire GREENLIGHT Completed Date 11/17/2022 Questionnaire Opiod Risk Tool Completed Date 11/17/2022 Comments 0 Risk Assessment: IRINA-7: IRINA - 7 SCORES 11/17/2022 IRINA-7 Score 0 (0-4) minimal anxiety, (5-9) mild anxiety, (10-14) moderate anxiety, (15-21) severe anxiety PHQ-9: PHQ-9 11/17/2022 Score 0 (0-4) minimal depression, (5-9) mild depression, (10-14) moderate depression, (15-19) moderately severe depression, (20-27) severe depression Opioid Risk Tool: Family History of Substance Abuse: 0 - No Personal History of Substance Abuse: 0 - No Age between 16-45: 0 - No History of Pre-Adolescence Sexual Abuse: 0 - No Psychological Disease: 0 - No Risk Total: 0 Total Score Risk Category: Low Risk 0-3 (0-3, low risk or no risk; 4-7, moderate risk, 8+, high risk) Diagnostic Studies: Relevant Imaging: Reviewed Personally on today's date, noted above MRI Spine Report MRI LUMBAR SPINE WO IVCON Exam End: 03/02/2023 10:32 AM (Final result) Narrative: * * *Final Report* * * DATE OF EXAM: Mar 02 2023 10:30AM [facility] 0303 - MRI LUMBAR SPINE WO IVCON / PROCEDURE REASON: Spinal stenosis of lum (more content not included)... [facility] 03-31-2023 History of Present illness Narrative POPULATION HEALTH NAVIGATION OUTREACH Action/03/31/23 Discuss the following t care gaps: ~Medicare Wellness Exam ~Colorectal cancer screening ~Screening mammogram due 08/19/23 or after Outcome: ~Spoke with patient, scheduled her Medicare Wellness appointment for 06/30/23. ~Patient declined scheduling Mammogram and Colonoscopy, stated she would prefer to wait and speak with PCP first. Patient Identified by Name and : YES, via phone Outreach Outcome/Action Spoke to patient / parent / legal guardian: Patient scheduled Did you use a PCP flex slot to schedule this appointment? No Reason for Outreach Care Gap or Scheduling/Wellness visits Payer: Payor: [employer] MEDICARE / Plan: [employer] MEDICARE PPO / Product Type: PPO / Care Gap Reviewed:: Annual Wellness visit Breast Cancer screening Colorectal Cancer Screening Reminder: Reminder note to check Health Maintenance for items below Health Maintenance items due: SHINGRIX VACCINE(1 of 2) Never done PNEUMOCOCCAL: 65+(1 - PCV) Never done COLORECTAL CANCER SCREENING due on 08/19/2020 COVID-19 VACCINE(3 - Booster for Pfizer series) due on 02/25/2021 ADVANCE DIRECTIVE DISCUSSION Never done DEPRESSION ASSESSMENT Never done Navigation Signature: Regine Kapoor Population Health Navigator March 31, 2023 8:24 AM documented in this encounter [facility] 03-14-2023 Miscellaneous Notes CD/report 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 Please call when ready for cotton picker [phone] documented in this encounter [facility] 03-02-2023 History of Present illness Narrative Radiology Service Progress Note PATIENT NAME: Lauryn Bang DATE OF SERVICE: March 02, 2023 TIME: 10:11 AM PATIENT IDENTITY VERIFICATION COMPLETED USING TWO (2) IDENTIFIERS: Name and Date of confirmed by patient verbally. FALL SCREENING: Has the patient had 2 falls in the last year or 1 fall with injury or currently using an Ambulatory Assistive Device (Walker, Cane, Wheelchair, Crutches, etc.)? No PATIENT GENDER DATA: Female. status: : No status: NO. PATIENT RELEVANT IMPLANT DATA REVIEWED: Yes RADIOLOGY DEPARTMENT: MR; Exam(s) Completed: Spine: Lumbar spine PERIPHERAL IV DATA: Not applicable SIGNED BY: RT Jenaro(R) March 02, 2023 10:11 AM documented in this encounter [facility] 02-02-2023 Note HNO ID: [id number] Author: Adriane Ray MA Service: ? Author Type: Induction Coordination Engineer Type: Progress Notes Filed: 02/02/2023 1:41 PM Note Text: Review of Systems Constitutional: Negative for activity change, chills, fever and unexpected weight change. Gastrointestinal: Negative for bowel retention or incontinence Genitourinary: Negative for difficulty urinating. Negative for bladder retention or incontinence Musculoskeletal: Positive for back pain and myalgias. Negative for arthralgias, gait problem, joint swelling, neck pain and neck stiffness. Neurological: Negative for weakness, numbness and headaches. Psychiatric/Behavioral: Negative for dysphoric mood, sleep disturbance and suicidal ideas. The patient is not nervous/anxious. [facility] 01-25-2023 Note HNO ID: [id number] Author: Leonard Poe MD Service: ? Author Type: Physician Type: Progress Notes Filed: 02/02/2023 1:41 PM Note Text: [facility] Name: Lauryn Bang : 1950 Purpose: 2 month follow-up Today's Date: 02/02/2023 Last Visit: 11/17/2022 Chief complaint: low back pain Lauryn Bang is an established patient, returning today for continued evaluation and management of the chief complaint noted above. Interval History: Overall pain and functional disability: improved New Complaints: none She has been able to sit for longer periods - she took two flights. Pain Description: Timing: intermittent Character: sharp and stabbing, aching Primary Location: axial low back Radiation: left proximal lateral thigh, left groin Exacerbating factors: sitting Relieving factors: changing positions Interferes with: sitting and social activities The patient denies difficulty with bowel or bladder control, unintentional weight loss, and fevers, chills, or night sweats. Medications Prescribed: Started or modified: none Discontinued: Celebrex 200mg BID PRN - helped; but has not continued, tolerated better Zanaflex - did not take Maintained at current dosages: Tolerating Medication: yes Medications helping improve ADL's and Self-care: yes Procedures Performed: DATE PROCEDURE IMPROVEMENT none Therapies Attended: PT 6 visits have been attended Treatment dates: Between 11/18/2022 and 01/25/2023 Improvement in pain and function: yes Studies Obtained: none (relevant findings reported below) Notable Events During Course of Treatment: 11/16/2022 - Initial HPI: Referred by Ashlyn [email or web address] [email or web address] , for evaluation AND management of low back pain Duration: 2 months Sudden onset? yes, Trauma? No She was sitting on a wooden religion pew for about 90 minutes, had sudden onset of low back pain after she started walking around. Pain worsened over several days. [facility]. She was given Prednisone and Flexeril, which did not help. Prior Treatments: Medications (See below), Injections (See below), Modalities (eg. Heat, Ice), Physical Therapy , Home Exercise Program , and Activity Modification 6 PT visits between 10/21/2022 and 11/15/2022 Therapy was helping, then on Monday felt she took a step backwards. INTAKE PAIN ASSESSMENT 12/02/2022 01/20/2023 Are you having pain associated with your visit today? - No Pain Scales - - Pain Level 1 - Pain Location - - Description - - Duration Amount of Time - - Duration Units - - Frequency - - Intervention/Comfort measure - - Pain Assessment - - Medications: CURRENT Pain Medications: none Pain Medications Taken TO DATE (for the chief complaint(s)): Membrane Stabilizers: none NSAIDS: Motrin (Ibuprofen) and Mobic (Meloxicam) - Mobic helped initially, but caused GI Upset Opioids: Vicodin or [place] (Hydrocodone) Muscle Relaxants: Flexeril (Cyclobenzaprine) - no relief Topicals: none Other Prescription or OTC Pain Medications: none Anti-depressants: Effexor Non-Pain Meds of Note: none Allergies: ALLERGIES Allergen Reactions Augmentin [Amoxicil* Diarrhea Bactrim [Sulfametho* GI Upset Doxycycline Rash Erythromycin unknown Meloxicam Submicron* GI Upset Rondec [Bromphenira* unknown Compliance: PDMP website checked and validated. All prescriptions have been APPROPRIATELY filled. No suspicious activity was identified. By Leonard Poe MD 02/02/2023 Recent Drug screens: AG SPINE COMBINATION 11/17/2022 Questionnaire GREENLIGHT Completed Date 11/17/2022 Questionnaire Opiod Risk Tool Completed Date 11/17/2022 Comments 0 Risk Assessment: IRINA-7: IRINA - 7 SCORES 11/17/2022 IRINA-7 Score 0 (0-4) minimal anxiety, (5-9) mild anxiety, (10-14) moderate anxiety, (15-21) severe anxiety PHQ-9: PHQ-9 11/17/2022 Score 0 (0-4) minimal depression, (5-9) mild depression, (10-14) moderate depression, (15-19) moderately severe depression, (20-27) severe depression Opioid Risk Tool: Family History of Substance Abuse: 0 - No Personal History of Substance Abuse: 0 - No Age between 16-45: 0 - No History of Pre-Adolescence Sexual Abuse: 0 - No Psychological Disease: 0 - No Risk Total: 0 Total Score Risk Category: Low Risk 0-3 (0-3, low risk or no risk; 4-7, moderate risk, 8+, high risk) Diagnostic Studies: Relevant Imaging: Reviewed Personally on today's date, noted above MRI Spine Report No resulted procedures found. X-ray Lumbar Spine 10/2022 Exaggerated lumbar lordosis with low-grade spondylolisthesis of L4 and L5. No compression fracture. Mild disc space narrowing at L5/S1. Degenerative changes lower facet joints. X-ray Left Hip 10/2022 Well-maintained with normal shape of the femoral head. No fracture. Bony pelvis intact. X-ray Right Foot 03/2022 No acute fracture or dislocation identified. Dorsal calcaneal enthes (more content not included)... [facility] 01-20-2023 Instructions Alicia Jurado APRN.METALLURGICAL ENGINEERING TECHNICIAN - 01/20/2023 12:29 PM EDT Images from the original note were not included. Adult Sinusitis Patient Education What is Sinusitis? Sinusitis [[id number]] is inflammation of the sinuses or swelling of the lining of the sinus cavity or nose. During an infection the sinuses become blocked with fluid causing swelling of the lining of the sinuses. Symptoms: (viral and bacterial infections) Stuffy nose Runny nose Postnasal drip Fever Toothache Headache Tiredness Cough Sore throat Face and head pressure and or pain Common causes: 98% of sinus infections are viral caused by viruses. Risk Factors of Sinusitis Include: Allergies, air pollution, indoor humidity and outdoor temperature changes, andstructural changes in the nose may contribute to sinus pain, pressure and congestion. When to get help? Temperature greater than 100.4 F Symptoms lasting more than 10 days or worsening symptoms greater than 7-10 days. If you do not improve or worsen after a course of antibiotics, you should be re-examined. Diagnosis and Treatment: Your healthcare provider will ask a number of questions about your symptoms and how long they have occurred. If symptoms of sinusitis persist greater than 10 days, it is possible you have a bacterial sinus infection and an antibiotic is prescribed. If it is viral, antibiotics will not help. You may be instructed to take thve-fey-[id number] medications for symptoms. including fever reducers acetaminophen or ibuprofen, nasal saline spray, cough and cold preparations and decongestants as prescribed by the physician, nurse practitioner or physician parking assistant. Self-Care and Prevention: Rest Fluids for hydration Good hand washing Humidifier Avoid smoking and exposure to second hand smoke Avoid sick contacts documented in this encounter [facility] 01-20-2023 History of Present illness Narrative Radiology Service Progress Note PATIENT NAME: Lauryn Bang DATE OF SERVICE: January 20, 2023 TIME: 11:22 AM PATIENT IDENTITY VERIFICATION COMPLETED USING TWO (2) IDENTIFIERS: Name and Date of confirmed by patient verbally. FALL SCREENING: Has the patient had 2 falls in the last year or 1 fall with injury or currently using an Ambulatory Assistive Device (Walker, Cane, Wheelchair, Crutches, etc.)? No PATIENT GENDER DATA: Female. status: : No status: NO. PATIENT RELEVANT IMPLANT DATA REVIEWED: Yes RADIOLOGY DEPARTMENT: General X-ray: Exam(s) Completed: Chest X-Ray PERIPHERAL IV DATA: Not applicable SIGNED BY: RT James(R) January 20, 2023 11:22 AM documented in this encounter [facility] 01-20-2023 History of Present illness Narrative This note was created using NoteWriter. Subjective Lauryn Bang is a 72 year old female. 72 year old female with PMH thyroid nodule and osteoporosis presents with complaints of illness. Acute onset of symptoms was 6 to 7 days ago. +sinus pressure + chest congestion +cough +body aches +fatigue Has used tylenol. Denies that she can take OTC medicines. Denies tobacco usage. The history is provided by the patient. No language instructor was used. Cough This is a new problem. The current episode started more than 1 week ago. The problem occurs constantly. The problem has been gradually worsening. Cough characteristics: productive cough. There has been no fever. Associated symptoms include headaches. Pertinent negatives include no chest pain, no chills, no sweats, no weight loss, no ear congestion, no ear pain, no rhinorrhea, no sore throat, no myalgias, no shortness of breath, no wheezing and no eye redness. She has tried nothing (Denies that she can tolerate OTC medicines) for the symptoms. She is not a smoker. Her past medical history does not include bronchitis, pneumonia, bronchiectasis, COPD, emphysema or asthma. PAST MEDICAL HISTORY Diagnosis Date Benign neoplasm of colon Diaphragmatic hernia without mention of obstruction or gangrene takes tums Frequent UTI Dr. 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 + bicuspid valve Symptomatic menopausal or female climacteric states hot flashes, night sweats PAST SURGICAL HISTORY Procedure Laterality Date COLSC FLX W/RMVL OF TUMOR POLYP LESION SNARE TQ 06/04/08 EXC LESION TDN SHTH/JT CAPSL HAND/FNGR Left 03/20/2019 Excision of left thumb ganglion cyst UNSPECIFIED ORAL SURGERY PROCEDURE, BY REPORT [place] teeth extracted UNSPECIFIED ORAL SURGERY PROCEDURE, BY REPORT 12/2016 tooth extracted VAGINAL HYSTERECTOMY UTERUS 250 GM/< 07/29/08 Hysterectomy, vaginal w/ cystocele repair ALLERGIES Augmentin [Amoxicillin-Pot Clavulanate], Bactrim [Sulfamethoxazole], Doxycycline, Erythromycin, Meloxicam Submicronized, and Rondec [Brompheniramine-Pseudoephedrin] MEDICATIONS melatonin 1 mg tablet Take by mouth. celecoxib (CELEBREX) 200 mg capsule TAKE 1 PILL BY MOUTH WITH FOOD UP TO EVERY 12 HOURS NEEDED FOR PAIN tiZANidine (ZANAFLEX) 4 mg tablet Take 1 tablet by mouth at bedtime as needed (muscle spasms). CRANBERRY ORAL Take by mouth. Hydrogen Peroxide (PEROXYL) 1.5 % soln Use 5 mL as instructed once daily. diphenhydramine HCl (UNISOM SLEEPMELTS ORAL) Take by mouth. estradiol 0.01 % (0.1 mg/g) vaginal cream Apply pea-sized amount to urethral opening twice a week. AZO CRANBERRY (CRANBERRY EXT-C-L. SPOROGENES) 450-30-50 [id number] tab Take by mouth. multivitamin ORAL tablet Take 1 tablet by mouth once daily. FAMILY HISTORY Problem Relation Age of Onset Breast Cancer Mother CHF age of breast cancer 60's Breast Cancer Sister late 50's, Cancer Sister BRAIN age 70 Social History Tobacco Use Smoking status: Never Smokeless tobacco: Never Vaping Use Vaping Use: Never used Substance Use Topics Alcohol use: Yes Comment: Seldom Drug use: No Review of Systems Constitutional: Positive for fatigue. Negative for chills and weight loss. HENT: Positive for congestion, postnasal drip, sinus pressure and sinus pain. Negative for ear pain, rhinorrhea and sore throat. Eyes: Negative for pain, discharge, redness and itching. Respiratory: Positive for cough. Negative for apnea, choking, chest tightness, shortness of breath and wheezing. Cardiovascular: Negative for chest pain. Gastrointestinal: Negative for abdominal pain, constipation, diarrhea, nausea and vomiting. Musculoskeletal: Positive for arthralgias. Negative for back pain, gait problem and myalgias. Skin: Negative for color change, pallor, rash and wound. Allergic/Immunologic: Negative for environmental allergies, food allergies and immunocompromised state. Neurological: Positive for headaches. Negative for dizziness and facial asymmetry. Hematological: Negative for adenopathy. Does not bruise/bleed easily. Psychiatric/Behavioral: Negative for agitation and behavioral problems. Objective BP 122/76 Pulse 90 Temp 37.3 C (99.2 F) Resp 18 Wt 75.2 kg (165 lb 12.8 oz) SpO2 96% BMI 28.46 kg/m Physical Exam Vitals and nursing note reviewed. Constitutional: General: She is not in acute distress. Appearance: Normal appearance. She is normal weight. She is not ill-appearing, toxic-appearing or diaphoretic. HENT: Head: Normocephalic and atraumatic. Comments: +frontal sinus pressure Right Ear: Ear canal and external ear normal. Left Ear: Ear canal and external ear normal. Ears: Comments: Bilateral ears with moderate serous fluids. Nose: Nose normal. No congestion or rhinorrhea. Mouth/Throat: Mouth: Mucous membranes are moist. Pharynx: No oropharyngeal exudate or posterior oropharyngeal erythema. Eyes: General: Right eye: No discharge. Left eye: No discharge. Extraocular Movements: Extraocular movements intact. Conjunctiva/sclera: Conjunctivae normal. Pupils: Pupils are equal, round, and reactive to light. Cardiovascular: Rate and Rhythm: Normal rate and regular rhythm. Pulses: Normal pulses. Heart sounds: Normal heart sounds. No murmur heard. No friction rub. Pulmonary: Effort: Pulmonary effort is normal. No respiratory distress. Breath sounds: Normal breath sounds. No stridor. No wheezing, rhonchi or rales. Chest: Chest wall: No tenderness. Abdominal: General: Abdomen is flat. There is no distension. Palpations: Abdomen is soft. There is no mass. Tenderness: There is no abdominal tenderness. There is no right CVA tenderness, left CVA tenderness, guarding or rebound. Hernia: No hernia is present. Musculoskeletal: General: No swelling, tenderness, deformity or signs of injury. Normal range of motion. Cervical back: Normal range of motion and neck supple. No rigidity. Right lower leg: No edema. Left lower leg: No edema. Lymphadenopathy: Cervical: No cervical adenopathy. Skin: General: Skin is warm and dry. Capillary Refill: Capillary refill takes less than 2 seconds. Coloration: Skin is not jaundiced or pale. Findings: No bruising, erythema, lesion or rash. Neurological: General: No focal deficit present. Mental Status: She is alert and oriented to person, place, and time. Cranial Nerves: No cranial nerve deficit. Sensory: No sensory deficit. Motor: No weakness. Coordination: Coordination normal. Gait: Gait normal. Psychiatric: Mood and Affect: Mood normal. Behavior: Behavior normal. Thought Content: Thought content normal. Judgment: Judgment normal. Assessment and Plan ASSESSMENT/PLAN: 1. Acute cough - ICD9: 786.2, ICD10: R05.1 (primary diagnosis) X one week. Changes between productive and nonproductive. - XR CHEST 2V FRONTAL/LAT-obtained and negative. 2. Rhinosinusitis - ICD9: 473.9, ICD10: J31.0, J32.9 - Will begin treatment with as per antibiotic as written, see orders - The patient should also be given OTC cough and cold meds as needed, warm salt water gargles, throat lozenges and/or OTC throat spray as needed, and nasal saline gtts and suction prn for the first 5-7 days of treatment. - Supportive care with plenty of fluids, rest, and analgesia prn. - Follow up in 3-5 days if symptoms persist or worsen. States she can only take Zithromax. Alicia Jurado APRN.CNP documented in this encounter [facility] 12-02-2022 History of Present illness Narrative Episode Visit Count: 11 Therapist That Will Accept/Oversee The Plan Of Care: Alicia Robles Start of Care Date: 10/21/22 Onset Date: 09/24/22 Plan of Care Certification Date: 11/15/22 Next Certification Due Date: 12/20/22 [facility]ORTS [facility]ERAPY PHYSICAL THERAPY TREATMENT NOTE ASSESSMENT: Lauryn Bang tolerated the session with fatigue and expected muscle soreness. She demonstrated improvements in TA stabilization with alt LE lifts with added hold when given the cue to use the core to avoid trunk movements. No back pain reported during physioball TA activation exercises today. The patient will continue to benefit from ongoing skilled physical therapy to progress toward set goals. Current Frequency: 1x/week PLAN FOR NEXT VISIT: DC next visit SUBJECTIVE: Patient Reason for Visit: Pt. had increased R shoulder pain after using a #5 weight while seated on a ball to complete TA exercises. She would like to continue PT for one additional visit due to having pain over the weekends typically when sitting for a prolonged period. Pt. reports that she does better with intermittent walking while standing at work. Pain: Pain Pain Level: 1 Pain Location: Low Back/Lumbar Spine - Right, Genital Pain Level 2: 0 Pain Location 2: Groin - Left (with sitting/driving) Post Treatment Pain Post Treatment Pain Level: No Change Post Treatment Pain Location: Low Back/Lumbar Spine - Right OBJECTIVE MEASURES WITH LEVEL OF FUNCTION: TREATMENT: Therapeutic Exercise: 1: TA activation while standing holding #5 LUE 1 min -- dc due to pain 2: TA activation while standing holding #5 RUE 1 min -- denies pain 3: TA activation while standing holding #5 LUE 1 min -- dc due to pain 4: TA activation while walking 40' 4x holding #5 RUE 5: TA activation while walking 40' 4x holding #3 BUE 6: TA activation while walking 40' 4x holding #5 BUE 7: sit <> stand standard ht chair with single #3 DB hold 2x5 8: seated TA activation on 85 cm physioball 3x10 alt LE raises 2 second hold each lift Skilled Intervention: Patient was educated in proper exercise technique and purpose for exercises. Reviewed and educated patient on additions/changes for home exercise program as above (*). Skilled judgment was provided in selection of appropriate interventions. Correct performance of therapeutic exercises was facilitated with verbal, visual, and tactile cuing. Educated patient on rationale for performing exercises in regards to decreasing fatigue , including balance, increase ease of ADL, and ROM and function . Patient education as noted. Self-Usp Management: 1: *discussed sitting with lumbar spine resting on the back of a chair or beard in a restaurant intermittently throughout a meal in a restaurant to reduce low back pain with prolonged sitting 2: *discussed not completing UE raises with added resistance on physioball with R shoulder until she has no symptoms with R shoulder AROM. Skilled Intervention: Skilled judgment in the selection of proper modification for activity of daily living/home management based on clinical presentation, deficits, and needs. Reviewed patient specific diagnosis in relation to activities of daily living/home management. Activity progression based on professional judgement. Reviewed and educated patient on additions/changes for home program as noted above with an (*). Correct performance of home program was facilitated with verbal, visual, and tactile cueing. Billing Therapeutic Exercise Treatment Minutes: 36 Self-Care/Home Management Treatment Minutes: 2 Total Treatment Time Minutes (timed/untimed): 38 Alicia Robles PT documented in this encounter [facility] 11-29-2022 History of Present illness Narrative Episode Visit Count: 10 Therapist That Will Accept/Oversee The Plan Of Care: Alicia Robles Start of Care Date: 10/21/22 Onset Date: 09/24/22 Plan of Care Certification Date: 11/15/22 Next Certification Due Date: 12/20/22 REHABILITATION AND SPORTS THERAPY PHYSICAL THERAPY TREATMENT NOTE ASSESSMENT: Lauryn Bang tolerated the session with fatigue and expected muscle soreness. She demonstrated difficulty initially with low back pain with alt LE raises, but this improved with cues to maintain TA activation and reduced symptoms were reported.. The patient will continue to benefit from ongoing skilled physical therapy to progress toward set goals. Current Frequency: 1x/week PLAN FOR NEXT VISIT: continue progressing core stabilization strengthening, consider unilateral dumbell carry SUBJECTIVE: Patient Reason for Visit: Pt. has only had pain with sitting in a restaurant and continues to have pain within a short period of time driving. She purchased a new mattress over the weekend that will be here the end of December 2022. She was able to lift a mattress and make a bed which she was not able to do prior to PT. Pain: Pain Pain Level: 0 Pain Location: Low Back/Lumbar Spine - Left Pain Level 2: 0 Pain Location 2: Groin - Left (with sitting/driving) Post Treatment Pain Post Treatment Pain Level: 0 Post Treatment Pain Location: Low Back/Lumbar Spine - Right OBJECTIVE MEASURES WITH LEVEL OF FUNCTION: TREATMENT: Therapeutic Exercise: 1: standing 85 cm physioball TA push down 2x10 2: standing 85 cm physioball TA push down 1x10, 10 sec hold 3: seated TA activation on 85 cm physioball 2x10, 1 sec hold 4: hook lying bridges 2x16 BLE 5: seated TA activation on 85 cm physioball 2x16 alt UE raises 6: *seated TA activation on 85 cm physioball 2x16 alt LE raises 7: *seated TA on 85 cm phsioball alt opposite UE/LE raises 2x16 8: *seated TA on 85 cm physioball #6 med ball press forward and back 2x12 9: *seated TA on 85 cm physioball #4 med ball chops diagonal both directoins 2x12 each side 10: *seated TA on 85 cm physioball unweighted horrizontal chops both directoins 2x12 each side Skilled Intervention: Patient was educated in proper exercise technique and purpose for exercises. Skilled judgment was provided in selection of appropriate interventions. Correct performance of therapeutic exercises was facilitated with verbal, visual, and tactile cuing. Educated patient on rationale for performing exercises in regards to decreasing fatigue , including balance, increase ease of ADL, and ROM and function . Patient education as noted. Billing Therapeutic Exercise Treatment Minutes: 40 Total Treatment Time Minutes (timed/untimed): 40 Alicia Robles PT documented in this encounter [facility] 11-25-2022 History of Present illness Narrative Episode Visit Count: 9 Therapist That Will Accept/Oversee The Plan Of Care: Alicia Robles Start of Care Date: 10/21/22 Onset Date: 09/24/22 Plan of Care Certification Date: 11/15/22 Next Certification Due Date: 12/20/22 REHABILITATION AND SPORTS THERAPY PHYSICAL THERAPY TREATMENT NOTE ASSESSMENT: Lauryn Bang tolerated the session with decreased symptoms. She demonstrated improvements reporting no pain with paloff press when performed in the hook lying position with the support of the table for the low back. . The patient will continue to benefit from ongoing skilled physical therapy to progress toward set goals. Current Frequency: 1x/week PLAN FOR NEXT VISIT: Continue core stabilization strengthening, review HEP. Pt. to continue PT until goals met. SUBJECTIVE: Patient Reason for Visit: Pt. had a a little trouble last night after dinner but did not take anything last night or this morning. Pain has centralized mid low back. She no longer feels like a board is across the lower back. Pain: Pain Pain Level: 0 Pain Location: Low Back/Lumbar Spine - Left Pain Level 2: 0 Pain Location 2: Groin - Left (with sitting/driving) Post Treatment Pain Post Treatment Pain Level: Better Post Treatment Pain Location: Low Back/Lumbar Spine - Right OBJECTIVE MEASURES WITH LEVEL OF FUNCTION: TREATMENT: Therapeutic Exercise: 1: seated TA activation 2x10, 5 sec hold 55 cm physioball push down with UEs 2: seated TA activation 2x10, 1 sec hold 55 cm physioball push down with UEs 3: hook lying band pull down, 2x10 OTB 4: hook lying bug 3x30 sec alt opposite UE/LE lift from 55 cm physioball . 5: hook lying bridges 2x10 BLE 6: hook lying band paloff press with 1x10 OTB each side -- denies pain in this position 7: seated TA activation on standard chair 2x10, 1 sec hold 8: seated TA activation on 65 cm physioball 2x5, 15 sec hold (ball between table and chair, No LOB without UE support) 9: seated TA activation on 65 cm physioball 2x10 UE raises (no LOB) 10: seated TA activation on 65 cm physioball 1x10 alt toe raises 11: seated TA activation on 65 cm physioball 1x10 alt toe raises 12: seated TA activation on 65 cm physioball 3x10 alt foot slides forward -- denies low back pain Skilled Intervention: Patient was educated in proper exercise technique and purpose for exercises. Reviewed and educated patient on additions/changes for home exercise program as above (*). Skilled judgment was provided in selection of appropriate interventions. Correct performance of therapeutic exercises was facilitated with verbal, visual, and tactile cuing. Educated patient on rationale for performing exercises in regards to decreasing fatigue , increase ease of ADL, and ROM and function . Patient education as noted. Billing Therapeutic Exercise Treatment Minutes: 40 Total Treatment Time Minutes (timed/untimed): 40 Alicia Robles PT documented in this encounter [facility] 11-22-2022 History of Present illness Narrative Episode Visit Count: 8 Therapist That Will Accept/Oversee The Plan Of Care: Alicia Robles Start of Care Date: 10/21/22 Onset Date: 09/24/22 Plan of Care Certification Date: 11/15/22 Next Certification Due Date: 12/20/22 REHABILITATION AND SPORTS THERAPY PHYSICAL THERAPY TREATMENT NOTE ASSESSMENT: Lauryn Bang tolerated the session with decreased symptoms. She demonstrated difficulty with alt LE raises while seated on physioball resulting with some onset of R side lower back pain, so this activity was discontinued. Pt. Did not have pain or difficulty with while seated on physioball with static sitting TA activation or UE raises without support. The patient will continue to benefit from ongoing skilled physical therapy to progress toward set goals. Current Frequency: 1x/week PLAN FOR NEXT VISIT: Continue core stabilization strengthening in standing and seated on physioball. Avoid paloff press. SUBJECTIVE: Patient Reason for Visit: Pt. reports a little stiffness when waking up from laying on a different bed due to husbands respiratory problems. Pain: Pain Pain Level: 0 Pain Location: Low Back/Lumbar Spine - Left Pain Level 2: 0 Pain Location 2: Groin - Left (with sitting/driving) Post Treatment Pain Post Treatment Pain Level: 1 Post Treatment Pain Location: Low Back/Lumbar Spine - Right OBJECTIVE MEASURES WITH LEVEL OF FUNCTION: TREATMENT: Therapeutic Exercise: 1: hook lying TA activation 3x10, 1 sec hold 2: hook lying TA activation 2x10, 1 sec hold 55 cm physioball push down with UEs 3: hook lying TA activation 2x10, 10 sec hold 55 cm physioball push down with UEs 4: hook lying bug 3x10, alt opposite UE/LE lift from 55 cm physioball . 5: hook lying bridges 2x10 BLE 6: standing TA activation with press down into 55 cm physioball 2x10, 1 sec hold 7: seated TA activation on standard chair 1x10 8: seated TA activation on 65 cm physioball 2x10, 1 sec hold (ball between table and chair, No LOB without UE support) 9: seated TA activaton on 65 cm physioball with alt UE raises 1x10 (no LOB) 10: seated TA activaton on 65 cm physioball with alt LE raises 1x10, dc due to reports of some low back pain, requires UE assistance. Skilled Intervention: Patient was educated in proper exercise technique and purpose for exercises. Reviewed and educated patient on additions/changes for home exercise program as above (*). Skilled judgment was provided in selection of appropriate interventions. Provided written instruction for home exercise program to facilitate proper performance and compliance. Educated patient on rationale for performing exercises in regards to decreasing fatigue , increase ease of ADL, and ROM and function . Patient education as noted. Billing Therapeutic Exercise Treatment Minutes: 30 Total Treatment Time Minutes (timed/untimed): 30 Alicia Robles PT documented in this encounter [facility] 11-18-2022 History of Present illness Narrative Episode Visit Count: 7 Therapist That Will Accept/Oversee The Plan Of Care: Alicia Robles Start of Care Date: 10/21/22 Onset Date: 09/24/22 Plan of Care Certification Date: 11/15/22 Next Certification Due Date: 12/20/22 REHABILITATION AND SPORTS THERAPY PHYSICAL THERAPY TREATMENT NOTE ASSESSMENT: Lauryn Bang tolerated the session with decreased symptoms. She demonstrated improvements in activity tolerance with core and B hip stabilization strengthening. The patient will continue to benefit from ongoing skilled physical therapy to progress toward set goals. Current Frequency: 1x/week PLAN FOR NEXT VISIT: SUBJECTIVE: Patient Reason for Visit: Pt. has f/u with referring provider and was referred by them to pain management. She has been presribed celebrex which she is tolerating better than meloxicam. She started her first dose today. She will see pain management in January. She was instructed to continue PT until she sees pain management. She is considering getting a different seat for her car. No recent change in car model or seat. Pain: Pain Pain Level: 0 Pain Location: Low Back/Lumbar Spine - Left Pain Location 2: Groin - Left (with sitting/driving) Post Treatment Pain Post Treatment Pain Level: No Change Post Treatment Pain Location: Low Back/Lumbar Spine - Left OBJECTIVE MEASURES WITH LEVEL OF FUNCTION: TREATMENT: Therapeutic Exercise: 1: hook lying TA activation 2x10, 1 sec hold 2: hook lying TA activation 2x10, 10 sec hold 3: *Sidelying hip abdcution 1-2x10 each LE 4: *Sidelying clamshells 2x10 each LE 5: *hook lying bridges 2x10 BLE 6: seated TA activation with press down into 55 cm physioball 2x10 7: seated TA activation 2x10 Skilled Intervention: Patient was educated in proper exercise technique and purpose for exercises. Reviewed and educated patient on additions/changes for home exercise program as above (*). Skilled judgment was provided in selection of appropriate interventions. Provided written instruction for home exercise program to facilitate proper performance and compliance. Additional time necessary for providing written HEP due to progressing to hip stabilization strengthening exercises. Educated patient on rationale for performing exercises in regards to decreasing fatigue , increase ease of ADL, and ROM and function . Patient education as noted. Billing Therapeutic Exercise Treatment Minutes: 40 Total Treatment Time Minutes (timed/untimed): 40 Alicia Robles PT documented in this encounter [facility] 11-17-2022 Miscellaneous Notes Addended by: LEONARD POE on: 11/17/2022 03:25 PM Modules accepted: Orders documented in this encounter [facility] 11-17-2022 History of Present illness Narrative Review of Systems Constitutional: Negative for activity change, chills, fever and unexpected weight change. Gastrointestinal: Negative for bowel retention or incontinence Genitourinary: Negative for difficulty urinating. Negative for bladder retention or incontinence Musculoskeletal: Positive for back pain and myalgias. Negative for arthralgias, gait problem, joint swelling, neck pain and neck stiffness. Neurological: Negative for weakness, numbness and headaches. Psychiatric/Behavioral: Positive for sleep disturbance. Negative for dysphoric mood and suicidal ideas. The patient is not nervous/anxious. Images from the original note were not included. [facility] Today's Date: 11/17/2022 Last Visit: N/A Name: Lauryn Bang : 1950 Purpose: New Patient Consultation Chief complaint: low back pain Pain Description: Timing: constant Character: sharp and stabbing, aching Primary Location: axial low back Radiation: left proximal lateral thigh, left groin Exacerbating factors: sitting Relieving factors: changing positions Interferes with: sitting and social activities The patient denies difficulty with bowel or bladder control, unintentional weight loss, and fevers, chills, or night sweats. Notable Events During Course of Treatment: 11/16/2022 - Initial HPI: Referred by Ashlyn Keita APRN.METALLURGICAL ENGINEERING TECHNICIAN , for evaluation & management of low back pain Duration: 2 months Sudden onset? yes, Trauma? No She was sitting on a wooden religion pew for about 90 minutes, had sudden onset of low back pain after she started walking around. Pain worsened over several days. Seen in [facility] on 09/26. She was given Prednisone and Flexeril, which did not help. Prior Treatments: Medications (See below), Injections (See below), Modalities (eg. Heat, Ice), Physical Therapy , Home Exercise Program , and Activity Modification 6 PT visits between 10/21/2022 and 11/15/2022 Therapy was helping, then on Monday felt she took a step backwards. INTAKE PAIN ASSESSMENT 11/15/2022 11/17/2022 Are you having pain associated with your visit today? Yes, Provider notified Yes, Provider notified Pain Scales Verbal (Numeric Rating or Visual Analog Scale) Verbal (Numeric Rating or Visual Analog Scale) Pain Level 8 7 Pain Location Hip-Left Back-Lower Description Sharp Radiating;Stiffness;Tightness;Sta bbing;Sharp;Aching Duration Amount of Time - - Duration Units - Months Frequency - Continuous Intervention/Comfort measure - Reposition;Relaxation;Positioning Pain Assessment - - Medications: CURRENT Pain Medications: none Pain Medications Taken TO DATE (for the chief complaint(s)): Membrane Stabilizers: none NSAIDS: Motrin (Ibuprofen) and Mobic (Meloxicam) - Mobic helped initially, but caused GI Upset Opioids: Vicodin or [place] (Hydrocodone) Muscle Relaxants: Flexeril (Cyclobenzaprine) - no relief Topicals: none Other Prescription or OTC Pain Medications: none Anti-depressants: Effexor Non-Pain Meds of Note: none Allergies: ALLERGIES Allergen Reactions Augmentin [Amoxicil* Diarrhea Bactrim [Sulfametho* GI Upset Doxycycline Rash Erythromycin unknown Rondec [Bromphenira* unknown Compliance: PDMP website checked and validated. All prescriptions have been APPROPRIATELY filled. No suspicious activity was identified. By Leonard Poe MD 11/17/2022 Recent Drug screens: AG SPINE COMBINATION 11/17/2022 Questionnaire GREENLIGHT Completed Date 11/17/2022 Questionnaire Opiod Risk Tool Completed Date 11/17/2022 Comments 0 Risk Assessment: IRINA-7: IRINA - 7 SCORES 11/17/2022 IRINA-7 Score 0 (0-4) minimal anxiety, (5-9) mild anxiety, (10-14) moderate anxiety, (15-21) severe anxiety PHQ-9: PHQ-9 11/17/2022 Score 0 (0-4) minimal depression, (5-9) mild depression, (10-14) moderate depression, (15-19) moderately severe depression, (20-27) severe depression Opioid Risk Tool: Family History of Substance Abuse: 0 - No Personal History of Substance Abuse: 0 - No Age between 16-45: 0 - No History of Pre-Adolescence Sexual Abuse: 0 - No Psychological Disease: 0 - No Risk Total: 0 Total Score Risk Category: Low Risk 0-3 (0-3, low risk or no risk; 4-7, moderate risk, 8+, high risk) Diagnostic Studies: Relevant Imaging: Reviewed Personally on today's date, noted above MRI Spine Report No resulted procedures found. X-ray Lumbar Spine 10/2022 Lumbar spine: Exaggerated lumbar lordosis with low-grade spondylolisthesis of L4 and L5. No compression fracture. Mild disc space narrowing at L5/S1. Degenerative changes lower facet joints. X-ray Left Hip 10/2022 Well-maintained with normal shape of the femoral head. No fracture. Bony pelvis intact. X-ray Right Foot 03/2022 No acute fracture or dislocation identified. Dorsal calcaneal enthesophyte. X-ray Wrist Left 11/2020 Electrodiagnostic Study (EMG): None Pain Procedures: DATE PROCEDURE IMPROVEMENT None Current Medications, Past Medical History, Past Surgical History, Family History, Social History and Review of Systems: On today's date, noted above, I have confirmed and edited as necessary, the PFSH and ROS obtained by others. Physical Exam: 11/17/22 1411 Pulse: 85 Resp: 16 SpO2: 98% Constitutional:normal weight Eyes: Conjunctiva clear. No discharge from eyes Cardiovascular: Appears well perfused Lymphatic: No visible regional lymphadenopathy Skin: No visible rashes or ecchymosis Psychiatric: Full affect, Alert, Pleasant Neuro-Lower: Neural Tension Signs: Negative slump in Bilateral lower limbs Sensation: intact to light touch in the L2-S2 Bilateral lower limb dermatomes Muscle Tone: Normal and symmetric throughout without clonus Strength: Iliopsoas (L2): 5 Left, 5 Right Quadriceps (L3) 5 Left, 5 Right Anterior Tibialis (L4): 5 Left, 5 Right Extensor Hallucis Longus (L5): 5 Left, 5 Right Gastrocnemius (S1): 5 Left, 5 Right Reflexes: Decreased 1+ and symmetric Patellar, Achilles Musculoskeletal-Lower: Inspection: Symmetric without atrophy Palpation: Lumbar Paraspinal Tenderness: Concordant on Bilateral side(s) Paraspinal Spasms: Moderate PSIS Tenderness: None on Bilateral side(s) Greater Trochanter Tenderness: None on Bilateral side(s) Spine Range of Motion: Flexion: Decreased 25% Without end range pain Extension: Decreased 25% With end range pain Combination extension and rotation pain: None Hip Range of Motion: Right Hip: Internal Rotation: Normal; Pain at end range: None External Rotation: Normal; Pain at end range: None Left Hip: Internal Rotation: Normal; Pain at end range: None External Rotation: Normal; Pain at end range: None Sacroiliac Maneuvers: Deferred Diagnoses: (M47.816) Lumbar spondylosis (primary encounter diagnosis) (M43.16) Spondylolisthesis of lumbar region (M48.061) Spinal stenosis, lumbar region, without neurogenic claudication Pertinent Past Medical History: Heart murmur, Benign neoplasm of colon, Chronic interstitial cystitis, Nontoxic multinodular goiter, Enlarged thyroid gland, Multiple thyroid nodules, Contact dermatitis and other eczema, Osteoporosis, Lumbar pain, Left hip pain, Ganglion cyst. Impression: 71 year old female presents with complaint(s) of subacute axial low back pain, x-ray showing spondylolisthesis at L4-5 and L5-S1. PT with modest improvement so far. No relief with oral steroids. Plan: Lauryn Bang would benefit from the following to reach personal goals for decreasing pain, improving function and work participation, and/or improving quality of life: -Interventional Procedure: none The risks, benefits, alternative treatment options and prognosis of the procedure were discussed and all of the patient's questions/concerns were addressed to the patient s satisfaction. Patient was advised that they will need a straight truck driver for after the procedure and that if no straight truck driver is available and on site at the time of the procedure, the procedure will be cancelled. For any anticoagulants, the patient was advised on whether to continue or hold for this procedure. The patient expressed understanding and gave verbal consent to proceed. Medication(s): Celebrex 200mg BID PRN Zanaflex 4mg qHS PRN Spasms Additional Studies: none Referrals: No additional considerations at present Functional Mu-Ism: Physical Therapy (Land-based) - continue Home Exercise Program: continue Depending on response to the above plan, consider: Epidural, MBB/RFA after MRI -Follow-up: 2 months Attribution: In addition to reviewing the information noted above, some elements copied from my most recent clinical note(s), including the physical exam (completed in entirety today), and the impression and plan sections, have been updated where appropriate. All reflect current medical decision making from today's date. [place] Poe MD, [facility] documented in this encounter [facility] 11-17-2022 History of Present illness Narrative POPULATION HEALTH NAVIGATION OUTREACH Action/[facility] Support: Called pt to schedule an appt in Pain Management. Patient declined Patient Identified by Name and : YES, via phone Outreach Outcome/Action Spoke to patient / parent / legal guardian: Patient declined Did you use a PCP flex slot to schedule this appointment? No Reason for Outreach Care Gap or Scheduling/Wellness visits Payer: Payor: [employer] MEDICARE / Plan: [employer] MEDICARE PPO / Product Type: PPO / Care Gap Reviewed:: Specialty Scheduling Reminder: Reminder note to check Health Maintenance for items below Health Maintenance items due: SHINGRIX VACCINE(1 of 2) Never done PNEUMOCOCCAL: 65+(1 - PCV) Never done COLORECTAL CANCER SCREENING due on 08/19/2020 COVID-19 VACCINE(3 - Booster for Pfizer series) due on 02/25/2021 INFLUENZA(1) due on 06/09/2022 ADVANCE DIRECTIVE DISCUSSION Never done DEPRESSION ASSESSMENT Never done Navigation Signature: Suki Og November 17, 2022 12:52 PM documented in this encounter [facility] 11-15-2022 Miscellaneous Notes Phoned patient and updated her with provider's message. Patient voiced understanding. She can continue to do her home PT exercise as long as it does not cause her more pain. Ashlyn Keita APRN.CNP Patient calling with question, she was asking if you wanted her to continue with Physical Therapy or do her exercises at home? PT was put on hold today since she was having so much pain. Her future PT appts were cancelled. Please advise documented in this encounter [facility] 11-15-2022 History of Present illness Narrative Episode Visit Count: 6 Therapist That Will Accept/Oversee The Plan Of Care: Alicia Robles Start of Care Date: 10/21/22 Onset Date: 09/24/22 Plan of Care Certification Date: 11/15/22 Next Certification Due Date: 12/20/22 REHABILITATION AND SPORTS THERAPY PHYSICAL THERAPY PROGRESS REPORT PLAN OF CARE UPDATE: Assessment: Lauryn Bang demonstrates no improvement in sitting, rising from a chair, standing, and bending. She has no difficulty with walking and reports that it actually reduces her symptoms. Patient continues to present with impairments in ADL's, independence in exercise, joint mobility, overall function, posture, range of motion, strength , and symptom management that interfere with rising from a chair, bending, sitting, driving, standing, walking (lying) . Current prognosis is Fair due to: chronic nature of impairments, clinical presentation, limited tolerance to activity . She will benefit from continued skilled therapy services to meet the updated goals for this plan of care as noted below. Goals for Episode of Care: created on 10/21/22 through 12/02/22 Goals updated on 11/15/2022 through 12/20/21. Independent in home exercises. -- MET Patient will decrease pain to 1-2/10 with functional activities to allow patient to improve ambulation, transfers, and standing tolerance for ADLs.-- PROGRESSING Restore pain-free lumbar ROM to no limitation grossly to allow for prolonged static standing, ambulation, and transfers without increased symptoms. -- normal ROM, but pain reported with all motions except R side flexion. Stand / Walk 30 min to 45 min without increased L lower back or LLE groin/hip pain/symptoms.-- MET Sit 45 min to 1 hours without pain/symptoms to allow for prolonged seated activities, including driving longer distances. -- PROGRESSING Maintain proper sitting posture throughout session Patient will be able to tolerate driving for 1-2 hours without increased Symptoms. -- PROGRESSING Patient Goals: tolerate sitting a chair for >15 - 20 min -- PROGRESSING Patient Goals: tolerate sitting a chair for >15 - 20 min Planned Interventions, Frequency, and Duration: 1x/week, 6 weeks Total Number of Visits Planned: 6 Patient to be seen for Therapeutic exercise ([id number]), Neuromuscular re-education ([id number]), Manual therapy (46222), Therapeutic activities (47750), Self-prison management ([id number]), Gait Training (13353), Patient/Family/Caregiver Education, Body Mechanics Training PLAN FOR NEXT VISIT: Hold chart 6 weeks or until pt. returns to referring provider due to inconsistent response with no improvement x6 PT visits. SUBJECTIVE: Patient Reason for Visit: Pt. had 3 consecutive bad evenings including last night not able to sleep well. Pt. has tried using heat and the chair that usually provide some relief are no longer effective. HEP exercises provide only some relief. Driving is torture and I only live 10 minutes away. -- per pt. report Pt. did not take any medication prior to this visit. Pt. walked for 40 min on the treadmill yesterday and has not difficulty with this. She states that walking is helpful for symptoms but she continues to have difficulty with sitting. Pt. would like to hold PT and return to referring provider.. Patient Goals: tolerate sitting a chair for >15 - 20 min Functional Limitations: rising from a chair, bending, sitting, driving, standing, walking (lying) Pain: Pain Pain Level: 5 Pain Location: Low Back/Lumbar Spine - Left Description: Sharp Frequency: At rest Pain Level 2: 0 Pain Location 2: Groin - Left (with sitting/driving) Post Treatment Pain Post Treatment Pain Level: Worse Post Treatment Pain Location: Low Back/Lumbar Spine - Left PROMIS Scales T-scores: mean of general population = 50. 5 points is clinically meaningfully difference Percentiles provide an indication of how the patient's score ranks in relation to the general population. Higher percentile rankings indicate better function/quality of life. 50th percentile is the average of the general population and indicates half of respondents had a worse score. T-scores: mean of general population = 50. 5 points is clinically meaningfully difference Percentiles provide an indication of how the patient's score ranks in relation to the general population. Higher percentile rankings indicate better function/quality of life. 50th percentile is the average of the general population and indicates half of respondents had a worse score. OBJECTIVE MEASURES WITH LEVEL OF FUNCTION: Posture / Alignment Lumbo - Pelvic Alignment: symmetrical at B ASIS and medial malleoli Sitting Posture: Perched, Left lateral shift, Sits on right ischial tuberosity Lumbar Spine AROM Lumbar Flexion: End range pain, Centralizing, Normal Lumbar Extension: End range pain, Centralizing, Normal Lumbar R Side Jolo: Normal, End range pain Lumbar L Side [place]: Normal, End range pain Lumbar R Side-Bend: Normal, Decreased pain Lumbar L Side-Bend: Produces, Normal Lumbar R Rotation: Normal, End range pain Lumbar L Rotation: Normal, End range pain Repeated Test Movements - Lumbar Other Lumbar Repeated Test Movements: Yes Other Repeated Test Movements - Lumbar FISS/R - Symptoms During: decreases FISS/R - Symptoms After: better (symptoms return within 10 seconds of reporting improvement) Gait Gait: Independent Gait Distance (feet): 50 Gait Device: None Gait Observation: sometimes walking helps me feel better. TREATMENT: Therapeutic Exercise: 1: side flexion to the L 2x10-- brief improvement reported but return of symptoms within 10 seconds of stopping reps 2: supine bridge 2x 3: lumbar flexion, side flexion each side, side glide each side, rotation each side, and extension 1x each Skilled Intervention: Patient was educated in proper exercise technique and purpose for exercises. Reviewed and educated patient on additions/changes for home exercise program as above (*). Correct performance of therapeutic exercises was facilitated with verbal, visual, and tactile cuing. Educated patient on rationale for performing exercises in regards to decreasing fatigue , increase ease of ADL, and ROM and function . Patient education as noted. Self-Usp Management: 1: *discussed postural awareness as she is able to tolerate 2: *discussed return to referring provider due to inconsistent symptom location and inconsistent response to specific direction of lumbar spine movement or core stabilization strengthening 3: *encouraged continued HEP compliance to maintain strength and provide at least some relief, dc exercises if symptoms increase Skilled Intervention: Skilled judgment in the selection of proper modification for activity of daily living/home management based on clinical presentation, deficits, and needs. Reviewed patient specific diagnosis in relation to activities of daily living/home management. Activity progression based on professional judgement. Maximum verbal cues for maintaining neutral spine alignment while seated. Reviewed and educated patient on additions/changes for home program as noted above with an (*). Billing Therapeutic Exercise Treatment Minutes: 15 Self-Care/Home Management Treatment Minutes: 15 Total Treatment Time Minutes (timed/untimed): 30 Alicia Robles PT documented in this encounter [facility] 11-10-2022 History of Present illness Narrative SupEpisode Visit Count: 5 Therapist That Will Accept/Oversee The Plan Of Care: Alicia Robles Start of Care Date: 10/21/22 Onset Date: 09/24/22 Plan of Care Certification Date: 10/21/22 Next Certification Due Date: 11/25/22 Patient Identified by Name and Date of : Yes REHABILITATION AND SPORTS THERAPY PHYSICAL THERAPY TREATMENT NOTE ASSESSMENT: Lauryn Bang tolerated the session with increased symptoms. She demonstrated difficulty with TA activation prior to MET for leg length and elevated L PSIS. The patient will continue to benefit from ongoing skilled physical therapy to progress toward set goals. PLAN FOR NEXT VISIT: Continue advancing core stabilization and strengthening as able SUBJECTIVE: Patient Reason for Visit: Pt reports that she is having pain that started last night that she initally had in the low back down into L buttock and L groin region. Pt unsure if she did somthing to aggrevate it with sleeping or what happened. Pt states completing hip flexor stretch over edge of table and that seemed to ease the pain, but not take it away entirely. Pain: Pain Pain Level: 2 (5/10 with flare up last night) Pain Location: Low Back/Lumbar Spine - Right Description: Dull Frequency: At rest Pain Level 2: 1 Pain Location 2: Groin - Left Post Treatment Pain Post Treatment Pain Level: Better Post Treatment Pain Location: Low Back/Lumbar Spine - Right Post Treatment Symptoms: Pt stated at the end of session she still had some groin pain, but not as noticable and just tightness noted across her mid low back. OBJECTIVE MEASURES WITH LEVEL OF FUNCTION: Posture / Alignment Lumbo - Pelvic Alignment: elevated iliac crest and L PSIS -- corrected with MET LE Observations: LLE leg length < RLE TREATMENT: Therapeutic Exercise: 1: Supine hip flexor stretch over edge of table 3x30 seconds L 2: Prone lying x 3 minutes (centralization of symptoms) 3: Prone prop x 1 minute ,15 seconds (brining kerry pain back) 4: Hook lying TA activation 1x10, 1x10 after MET (increased symtopms in low back and L groin with first set of 1x10, felt better with second round after MET for leg length) 5: self LLE correction L LE flexion and RLE hip extension isometric 3x10 sec to correct leg length discrepency 6: Sidelying hip abdcution 2x10 LLE 7: Sidelying clamshells 2x10 LLE 8: Scapular retractions 3x10 Skilled Intervention: Patient was educated in proper exercise technique and purpose for exercises. Skilled judgment was provided in selection of appropriate interventions. Correct performance of therapeutic exercises was facilitated with verbal and visual cuing. Billing Therapeutic Exercise Treatment Minutes: 38 Total Treatment Time Minutes (timed/untimed): 38 Brisa Gallardo, EDE Robles PT documented in this encounter [facility] 11-08-2022 History of Present illness Narrative Episode Visit Count: 4 Therapist That Will Accept/Oversee The Plan Of Care: Alicia Robles Start of Care Date: 10/21/22 Onset Date: 09/24/22 Plan of Care Certification Date: 10/21/22 Next Certification Due Date: 11/25/22 Patient Identified by Name and Date of : Yes REHABILITATION AND SPORTS THERAPY PHYSICAL THERAPY TREATMENT NOTE ASSESSMENT: Lauryn Bang tolerated the session with decreased symptoms. She demonstrated improvements in technique with TA activation in hook lying. The patient will continue to benefit from ongoing skilled physical therapy to progress toward set goals. PLAN FOR NEXT VISIT: Continue advancing core stabilization and strengthening as able SUBJECTIVE: Patient Reason for Visit: Pt reports that she is feeling good, has had some good days over the past few days. Pt reports decreased pain. Pain: Pain Pain Level: 1 Pain Location: Low Back/Lumbar Spine - Right Description: Dull Frequency: At rest Pain Level 2: 0 Pain Location 2: Groin - Left Post Treatment Pain Post Treatment Pain Level: Better Post Treatment Pain Location: Low Back/Lumbar Spine - Right OBJECTIVE MEASURES WITH LEVEL OF FUNCTION: Pt able to perform TA activation with good technique without biofeedback this visit. TREATMENT: Therapeutic Exercise: 1: *Hook lying TA activation 2x10 2: Hook lying bridges 3x5 3: *Hook lying TA activation with alt march 2x10 B 4: Hook lying TA activation with GTB pull overs both directions 2x10 each 5: *Scapular retractions 2x10 6: Pallof's press with GTB 2x10 B 7: Seated piriformis stretch 1x30 seconds Skilled Intervention: Patient was educated in proper exercise technique and purpose for exercises. Reviewed and educated patient on additions/changes for home exercise program as above (*). Skilled judgment was provided in selection of appropriate interventions. Provided written instruction for home exercise program to facilitate proper performance and compliance. Correct performance of therapeutic exercises was facilitated with verbal and visual cuing. Billing Therapeutic Exercise Treatment Minutes: 40 Total Treatment Time Minutes (timed/untimed): 40 Brisa Gallardo, EDE Robles PT documented in this encounter [facility] 11-02-2022 History of Present illness Narrative Episode Visit Count: 3 Therapist That Will Accept/Oversee The Plan Of Care: Alicia Robles Start of Care Date: 10/21/22 Onset Date: 09/24/22 Plan of Care Certification Date: 10/21/22 Next Certification Due Date: 11/25/22 REHABILITATION AND SPORTS THERAPY PHYSICAL THERAPY TREATMENT NOTE ASSESSMENT: Lauryn Bang tolerated the session with decreased symptoms. She demonstrated difficulty with TA activation using biofeedback initially but was able to reach 25-30 mmHg with repeated sets with cues. The patient will continue to benefit from ongoing skilled physical therapy to progress toward set goals. PLAN FOR NEXT VISIT: TA activation NMRE using biofeedback. Update HEP to include hook lying TA activation. Add LE and UE movements as resistence later. SUBJECTIVE: Patient Reason for Visit: Pt. noticed increased pain with leaning forward and bending. Had pain with driving and sitting after visit yesterday. Pain: Pain Pain Level: 1 Pain Location: Low Back/Lumbar Spine - Right Description: Dull Frequency: At rest Pain Level 2: 0 Pain Location 2: Groin - Left Post Treatment Pain Post Treatment Pain Level: (<1/10) Post Treatment Pain Location: Low Back/Lumbar Spine - Right OBJECTIVE MEASURES WITH LEVEL OF FUNCTION: Posture / Alignment Lumbo - Pelvic Alignment: elevated iliac crest and L PSIS -- corrected with MET LE Observations: LLE leg length < RLE but by ~.5 to 1 difference TREATMENT: Therapeutic Exercise: 1: supine EOB LLE hip flexor and rectus femoris stretch 3x30 sec with hactive knee flexion (denies pain with bending forward and sitting. Pelvic and leg elngth asymmetry corrected.) 2: hook lying bridge x 3 Skilled Intervention: Patient was educated in proper exercise technique and purpose for exercises. Reviewed and educated patient on additions/changes for home exercise program as above (*). Skilled judgment was provided in selection of appropriate interventions. Correct performance of therapeutic exercises was facilitated with verbal, visual, and tactile cuing. Educated patient on rationale for performing exercises in regards to decreasing fatigue , increase ease of ADL, and ROM and function . Patient education as noted. Neuromuscular Re-Education: 1: Hook mckenzie TA actvation using biofeedback 20 mmHg to 25 mmHg 1x10 2: Hook mckenzie TA actvation using biofeedback 20 mmHg to 30 mmHg 2x10 3: Hook mckenzie TA actvation using biofeedback 20 mmHg to 30 mmHg 2x10, 10 sec hold Skilled Intervention: Skilled judgment used to assess appropriate program for balance and coordination activity. Education and demonstration for posture and positioning for tone management. Correct performance of home program was facilitated with verbal, visual, and tactile cueing. Patient education as noted. Self-Usp Management: 1: *discussed the role of the core as protecting the spine from excessive shear force. Used images from internet of abdominal muscles and spine 2: *discussed using an elevated work surface such as a standing desk or counter top while propping the LE on a stool or inside a cupboard while peer reviewing documents for an extended period of time. Skilled Intervention: Skilled judgment in the selection of proper modification for activity of daily living/home management based on clinical presentation, deficits, and needs. Physical assistance was provided during education for modifications and patient safety. Reviewed patient specific diagnosis in relation to activities of daily living/home management. Activity progression based on professional judgement. Moderate verbal cues for maintaining neutral spine alignment. Instructed on proper lifting and carrying techniques with importance of core activation. Provided written instruction for home program to facilitate proper performance and compliance. Correct performance of home program was facilitated with verbal, visual, and tactile cueing. Billing Therapeutic Exercise Treatment Minutes: 15 Neuromuscular Re-Education Treatment Minutes: 20 Self-Care/Home Management Treatment Minutes: 5 Total Treatment Time Minutes (timed/untimed): 40 Alicia Robles, PT documented in this encounter [facility] 11-01-2022 History of Present illness Narrative Episode Visit Count: 2 Therapist That Will Accept/Oversee The Plan Of Care: Alicia Robles Start of Care Date: 10/21/22 Onset Date: 09/24/22 Plan of Care Certification Date: 10/21/22 Next Certification Due Date: 11/25/22 RE[facility]ABILITATION AND SPORTS THERAPY PHYSICAL THERAPY TREATMENT NOTE ASSESSMENT: Lauryn Bang tolerated the session with decreased symptoms. She demonstrated improvements in pain intensity and centralization of symptoms since last visit as a result of repeated lumbar L side glides. Pt. Also reported reduced low back pain symptoms after a muscle energy technique to correct pelvic asymmetry and leg length difference between the longer RLE and shorter LLE. Pt. Was not able to tolerate theraband chops to the R but had no pain with repeated movements left. No pain without resistance with right or left lumbar rotation reported. The patient will continue to benefit from ongoing skilled physical therapy to progress toward set goals. PLAN FOR NEXT VISIT: SUBJECTIVE: Patient Reason for Visit: Improvement overall. Exercises have centralized symptoms to the lower back. Pt. reports most pin point tenderness in the R PSIS. Denies tenderness along the central spinous processes of each lumbar vertebrae but has pain refer across the whole lower back. Pain: Pain Pain Level: 3 Pain Location: Low Back/Lumbar Spine - Right Description: Aching Frequency: At rest Additional Pain Information : Location 2 Pain Level 2: 0 Pain Location 2: Groin - Left Post Treatment Pain Post Treatment Pain Location: Low Back/Lumbar Spine - Right OBJECTIVE MEASURES WITH LEVEL OF FUNCTION: Posture / Alignment Lumbo - Pelvic Alignment: elevated iliac crest and L PSIS -- corrected with MET LE Observations: LLE leg length < RLE TREATMENT: Therapeutic Exercise: 1: *self LLE correction L LE flexion and RLE hip extension isometric 3x10 sec to correct leg length discrepency 2: OTB lateral TA chops 2x12 L without pain, 1x10 R with pain and dc 3: lumbar R side glide at wall 3x10, without towel (R side low back pain intensity, continues to have low back pain across the lower back) 4: rotation L 2x10 - denies symptoms after LLE length correction 5: R piriformis stretch hook lying - denies LBP R or L 1x30 sec each side 6: GTB 2x12 TA pull down 7: *OTB 2x12 TA pull down Skilled Intervention: Patient was educated in proper exercise technique and purpose for exercises. Skilled judgment was provided in selection of appropriate interventions. Provided written instruction for home exercise program to facilitate proper performance and compliance. Educated patient on rationale for performing exercises in regards to decreasing fatigue , increase ease of ADL, and ROM and function . Patient education as noted. Manual Therapy: 1: MET R hip extensors and L hip flexors supine, LLE over EOB 3x10 sec -- LLE shorter than RLE, corrected and reduced R LBP reported by pt. Skilled Intervention: Manual skills to improve joint mobility, ROM, and decrease pain. Utilized anatomy knowledge of the therapist, and assessment of patient's response to intervention. Self-Usp Management: 1: *discussed PT referral dx and lumbar spine dermatome patterns. This clarifed to pt. better why L groin pain reduced with lumbar repeated movements. 2: *discussed pelvic asymmetry findings and clinical reasoning for MET performed using images of pelvis and explanation of muscle action. Skilled Intervention: Skilled judgment in the selection of proper modification for activity of daily living/home management based on clinical presentation, deficits, and needs. Provided written instruction for activities of daily living techniques to facilitate proper performance and compliance. Reviewed patient specific diagnosis in relation to activities of daily living/home management. Activity progression based on professional judgement. Reviewed and educated patient on additions/changes for home program as noted above with an (*). Provided written instruction for home program to facilitate proper performance and compliance. Correct performance of home program was facilitated with verbal and visual cueing. Billing Therapeutic Exercise Treatment Minutes: 25 Manual TherapyTreatment Minutes: 10 Self-Care/Home Management Treatment Minutes: 5 Total Treatment Time Minutes (timed/untimed): 40 Alicia Robles PT documented in this encounter [facility] 10-18-2022 Miscellaneous Notes Pt called and is notified of providers message. Pt voices understanding and put through to PT phone number to schedule. Freda Stauffer RN Order for PT filed. Please let patient know she can call to schedule. Ashlyn Keita APRN.CNP Pt notified of result and provider message. Pt reports she would like to try PT. Pt would like to go to [facility] PT. Call pt when order has been placed. Ayanna Borjas LPN VM left for pt to call provider's office and ask for a triage nurse, for message below. Nora Patel RN Please call patient and let her know her xray shows low grade spondylolisthesis- which is the movement of the vertebrae. Left hip xray normal. Would recommend PT. IF interested will place order. Ashlyn Keita APRN.CNP documented in this encounter [facility] 10-17-2022 History of Present illness Narrative Radiology Service Progress Note PATIENT NAME: Lauryn Bang DATE OF SERVICE: October 17, 2022 TIME: 3:27 PM PATIENT IDENTITY VERIFICATION COMPLETED USING TWO (2) IDENTIFIERS: Name and Date of confirmed by patient verbally. FALL SCREENING: Has the patient had 2 falls in the last year or 1 fall with injury or currently using an Ambulatory Assistive Device (Walker, Cane, Wheelchair, Crutches, etc.)? No PATIENT GENDER DATA: Female. status: : No status: NO. PATIENT RELEVANT IMPLANT DATA REVIEWED: Not Applicable RADIOLOGY DEPARTMENT: General X-ray: Exam(s) Completed: Spine X-Ray(s): Lumbar AP / LAT / L5-S1 Pelvis X-Ray: Pelvis with Hip Left PERIPHERAL IV DATA: Not applicable SIGNED BY: RT Kirt(R) October 17, 2022 3:27 PM documented in this encounter [facility] 10-17-2022 Instructions Ashlyn Keita APRN.CNP - 10/17/2022 3:02 PM EST Follow-up pending xray documented in this encounter [facility] 10-17-2022 History of Present illness Narrative 10/17/2022 Patient presents with: Pain: Pain to left lower back, left hip and left leg since Sep 24 SUBJECTIVE: This is a 71 year old that is here today for Above Complaints. ONSET: 09/21 after walking across parking lot LOCATION: left lower back, buttocks and groin DURATION: constant CHARACTERISTICS: deep aching AGGRAVATING FEATURES: by certain chairs, standing, bending over or lying ALLEVIATING FEATURES: heat cushion,extra strength tylenol, Advil RADIATION: left back to left hip, buttocks, and groin Denies past or present trauma or surgery, redness, warmth swelling, extremity numbness, tingling, weakness, saddle anaesthesia, urinary/bowel incontinence or inability. PAST MEDICAL HISTORY Diagnosis Date Benign neoplasm of colon Diaphragmatic hernia without mention of obstruction or gangrene takes tums Frequent UTI Dr. 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 cyclobenzaprine (FLEXERIL) 10 mg tablet Take 0.5-1 tablets by mouth three times daily as needed for muscle spasm. Hydrogen Peroxide (PEROXYL) 1.5 % soln Use 5 mL as instructed once daily. diphenhydramine HCl (UNISOM SLEEPMELTS ORAL) Take by mouth. (Patient not taking: Reported on 07/23/2022) estradiol 0.01 % (0.1 mg/g) vaginal cream Apply pea-sized amount to urethral opening twice a week. AZO CRANBERRY (CRANBERRY EXT-C-L. SPOROGENES) 450-30-50 [id number] tab Take by mouth. (Patient not taking: Reported on 09/26/2022) multivitamin ORAL tablet Take 1 tablet by mouth once daily. No current facility-administered medications for this visit. Medications and allergies reviewed by this provider. SOCIAL HISTORY Social History Tobacco Use Smoking status: Never Smokeless tobacco: Never Vaping Use Vaping Use: Never used Substance Use Topics Alcohol use: Yes Comment: Seldom Drug use: No REVIEW OF SYSTEMS All other reviewed and negative other than HPI. OBJECTIVE: BP 142/78 Pulse 103 Resp 16 Wt 74.6 kg (164 lb 6.4 oz) SpO2 97% BMI 28.22 kg/m . Vital signs reviewed by this provider. APPEARANCE Well appearing, alert, in no acute distress, well-hydrated, well nourished. EYES PERRLA, conjunctiva and sclera normal. BACK: Normal exam. No TTP. FROM SKIN Skin color, texture, turgor normal, no suspicious rashes or lesions LEFT HIP: no obvious deformity, erythema, or swelling. No TTP. FROM without difficulty SHINGRIX VACCINE(1 of 2) Never done PNEUMOCOCCAL: 65+(1 - PCV) Never done COLORECTAL CANCER SCREENING due on 08/19/2020 COVID-19 VACCINE(3 - Booster for Pfizer series) due on 02/25/2021 INFLUENZA(1) due on 06/09/2022 ADVANCE DIRECTIVE DISCUSSION Never done DEPRESSION ASSESSMENT Never done MAMMOGRAM due on 08/18/2023 DIABETES SCREEN due on 09/15/2024 LIPID SCREEN due on 10/16/2024 DTAP,TDAP,TD(2 - Td or Tdap) due on 09/04/2029 BONE DENSITY Completed HEPATITIS C SCREENING Completed ASSESSMENT/PLAN: 1. Left hip pain - ICD9: 719.45, ICD10: M25.552 (primary diagnosis) - consider arthritis vs referred from back - mo red flag symptoms or exam findings - red flag symptoms discussed, verbalizes understanding - XR HIP GENERAL 3V PELV/AP/LAT LEFT - MELOXICAM 15 MG TABLET- counseled on not taking any other OTC NSAID products when using, verbalizes understanding - may use OTC topical and heat for 15 minutes at a time- do no tlay on heating pad - follow-up pending xray, to ER with red flag symptoms 2. Lumbar pain - ICD9: 724.2, ICD10: M54.50 - plan as in #1 - XR LUMBAR GENERAL 3V AP/LAT/L5-S1 - MELOXICAM 15 MG TABLET Ashlyn Keita APRN.CNP Prescription instructions reviewed with patient as applicable. Patient advised if symptoms do not improve or if symptoms worsen sooner, to contact their primary care physician. Potential red flag symptoms discussed with the patient. Reviewed appropriate action plan to take if red flag symptoms occur. Patient agreeable to treatment plan. I spent a total of 25 minutes on the date of the service which included preparing to see the patient, [id number] patient care, completing clinical documentation, obtaining and/or reviewing separately obtained history, performing a medically appropriate examination, counseling and educating the patient/family/caregiver, and ordering medications, tests, or procedures. documented in this encounter [facility] 09-26-2022 History of Present illness Narrative 09/26/2022 Patient presents with: Low Back Pain: L sided low back pain radiating into L hip and groin x5 days SUBJECTIVE: This is a 71 year old that is here today for Complaint(s) of low back pain x 5 days. Pain started walking across the parking lot from a restaurant. She had been sitting on a hard bench during the meal. Pain is located now in the left lower back radiating into the left buttock and hip and then radiating to the groin. It feels the same as previous sciatica but now not going into the leg. She did have diarrhea 2 days ago, but that has resolved. Denies fever/chills, dysuria, urinary frequency, urgency, hematuria. Tried tylenol. Pain now even with walking and lying down. No bowel or bladder incontinence. No saddle anesthesia. Denies numbness/tingling. No injury/trauma. Pain not waking her at night. PAST MEDICAL HISTORY Diagnosis Date Benign neoplasm of colon Diaphragmatic hernia without mention of obstruction or gangrene takes tums Frequent UTI Dr. 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 Hydrogen Peroxide (PEROXYL) 1.5 % soln Use 5 mL as instructed once daily. estradiol 0.01 % (0.1 mg/g) vaginal cream Apply pea-sized amount to urethral opening twice a week. multivitamin ORAL tablet Take 1 tablet by mouth once daily. diphenhydramine HCl (UNISOM SLEEPMELTS ORAL) Take by mouth. (Patient not taking: Reported on 07/23/2022) AZO CRANBERRY (CRANBERRY EXT-C-L. SPOROGENES) 450-30-50 [id number] tab Take by mouth. (Patient not taking: Reported on 09/26/2022) No current facility-administered medications for this visit. SOCIAL HISTORY Social History Tobacco Use Smoking status: Never Smokeless tobacco: Never Vaping Use Vaping Use: Never used Substance Use Topics Alcohol use: Yes Comment: Seldom Drug use: No REVIEW OF SYSTEMS See HPI OBJECTIVE: BP 142/92 Pulse 88 Temp 36.9 C (98.4 F) Resp 18 Wt 73.7 kg (162 lb 6.4 oz) SpO2 98% BMI 27.88 kg/m APPEARANCE Well appearing, alert, in no acute distress, well-hydrated, well nourished. BACK: + mild TTP left lumbar paraspinal muscles into left upper buttocks. No vertebral TTP. Normal ROM, pain elicited with flexion forward. Negative SLR GARY EXTREMITIES Extremities normal, No deformities, No skin discoloration, No edema, and Normal pulses bilaterally. ASSESSMENT/PLAN: 1. Left lumbar pain - ICD9: 724.2, ICD10: M54.50 Suspect lumbar radiculopathy, Patient with known OA in right hip-discussed possibility in left. She will try treatment course discussed first, and if not improving recommend XR left hip. Reviewed red flags and when to seek care sooner, including bowel or bladder incontinence, saddle anesthesia, worsening pain, numbness, weakness, fever/chills. - PREDNISONE 20 MG TABLET - CYCLOBENZAPRINE 10 MG TABLET Has home exercises she can start as symptoms start to improve F/u in 3-5 days if not improving, sooner if worsening. The patient indicates understanding of these issues and agrees with the plan. Nuris Enriquez PA-C documented in this encounter [facility] 08-19-2022 Miscellaneous Notes Patient telephoned and made aware. Voices understanding. Adamaris Goetz LPN Please call patient and let her know there is no mammographic evidence of malignancy. A 1 year screening mammogram is recommended. Thanks, Ashlyn Keita APRN.AYAH documented in this encounter [facility] 08-19-2022 Miscellaneous Notes August 19, 2022 PID: [id number] Lauryn Bang [address] [place] [address] Dear Ms. Bang, We are pleased to inform you that the results of your recent breast imaging exam on 08/18/2022 are normal. Your mammogram demonstrates that you have dense breast tissue, which could hide abnormalities. Dense breast tissue, in and of itself, is a relatively common condition. Therefore, this information is not provided to cause undue concern; rather, it is to raise your awareness and promote discussion with your health care provider regarding the presence of dense breast tissue in addition to other risk factors. Early detection of cancer is very important. We also understand recommendations regarding breast cancer screening are controversial. Please discuss with your primary care provider which strategy is best for you and whether a mammogram is right for you. Your imaging studies and report will be kept on file at [facility] as part of your permanent medical record and are available for your continuing care. Thank you for allowing us to help in meeting your health care needs. Sincerely, Dr. Fang Interpreting Radiologist [facility] (Normal over 40) documented in this encounter [facility] 08-18-2022 History of Present illness Narrative Radiology Service Progress Note PATIENT NAME: Lauryn Bang DATE OF SERVICE: August 18, 2022 TIME: 2:03 PM PATIENT IDENTITY VERIFICATION COMPLETED USING TWO (2) IDENTIFIERS: Name and Date of confirmed by patient verbally. FALL SCREENING: Has the patient had 2 falls in the last year or 1 fall with injury or currently using an Ambulatory Assistive Device (Walker, Cane, Wheelchair, Crutches, etc.)? No PATIENT GENDER DATA: Female. status: : No status: NO. PATIENT RELEVANT IMPLANT DATA REVIEWED: Not Applicable RADIOLOGY DEPARTMENT: Mammography PERIPHERAL IV DATA: Not applicable SIGNED BY: Elza Lilly Rachioo Tia August 18, 2022 2:03 PM documented in this encounter [facility] 08-11-2022 Miscellaneous Notes Phone call placed detailed message left on patients identified voicemail. Darlene Naidu LPN No fungal growth after 6 days still and preliminary report will notify if anything changes documented in this encounter [facility] 08-04-2022 Instructions Cornelia Ceballos APRN.CNP - 08/04/2022 2:24 PM EDT Possible lesion, cut, fungal infection Culture done will call with results. [place] as ordered Recommend follow up with ENT for further evaluation documented in this encounter [facility] 08-04-2022 History of Present illness Narrative Subjective The history is provided by the patient. No language instructor was used. HPI Lauryn Bang is a 71 year old female who presents today for CC of sore area on left mid lower tongue region. This started about 2 weeks ago and is not going away. She denies any known biting or trauma. She has used mouth wash x 1 with no change. She is a non smoker. BP 144/82 Pulse 105 Temp 36.6 C (97.9 F) Resp 18 Wt 74.3 kg (163 lb 12.8 oz) SpO2 97% BMI 28.12 kg/m Social History Tobacco Use Smoking status: Never Smokeless tobacco: Never Vaping Use Vaping Use: Never used Substance Use Topics Alcohol use: Yes Comment: Seldom Drug use: No PAST MEDICAL HISTORY Diagnosis Date Benign neoplasm of colon Diaphragmatic hernia without mention of obstruction or gangrene takes tums Frequent UTI Dr. 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 Musculoskeletal: Negative for joint pain and myalgias. Skin: Negative for itching and rash. All other systems reviewed and are negative. Objective Physical Exam Vitals and nursing note reviewed. Pulmonary: Effort: Pulmonary effort is normal. Skin: General: Skin is warm and dry. Neurological: Mental Status: She is alert and oriented to person, place, and time. Psychiatric: Mood and Affect: Affect normal. ASSESSMENT/PLAN: 1. Soreness of tongue - ICD9: 529.6, ICD10: K14.6 Possible lesion, cut, fungal infection Culture done will call with results. Peroxyl as ordered Recommend follow up with ENT for further evaluation - FUNGAL SCREEN - PEROXYL 1.5 % MUCOSAL SOLUTION Diagnosis and treatment plan were discussed and questions were answered to the patient's satisfaction. Pt acknowledged understanding of concepts and follow up plan. Specific signs and symptoms that would indicate the need for higher level of care were discussed in detail warranting prompt ER evaluation. Cornelia Ceballos APRN.AYAH documented in this encounter [facility] 07-23-2022 History of Present illness Narrative Subjective HPI Nontoxic-appearing female presents urgent care chief plaint possible sinus infection. Duration of symptoms 9 days. Associated symptoms sinus pressure and right ear pain. History of sinus infections in the past this feels similar. Was improving and then worsened again. Denies any OTC medication use recently. Was using OTC sinus medication and this did not help. Denies known sick contacts. Negative COVID-19 home test. Denies any fever body aches chills productive cough chest pain shortness of breath pleuritic pain hemoptysis nausea vomiting abdominal pain change in bowel or bladder habits. Past medical history prescription medication use allergies reviewed. .Patient presents with: Sinus Problem: Right side PAST MEDICAL HISTORY Diagnosis Date Benign neoplasm of colon Diaphragmatic hernia without mention of obstruction or gangrene takes tums Frequent UTI Dr. 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 + bicuspid valve Symptomatic menopausal or female climacteric states hot flashes, night sweats PAST SURGICAL HISTORY Procedure Laterality Date COLSC FLX W/RMVL OF TUMOR POLYP LESION SNARE TQ 06/04/08 EXC LESION TDN SHTH/JT CAPSL HAND/FNGR Left 03/20/2019 Excision of left thumb ganglion cyst UNSPECIFIED ORAL SURGERY PROCEDURE, BY REPORT [place] teeth extracted UNSPECIFIED ORAL SURGERY PROCEDURE, BY REPORT 12/2016 tooth extracted VAGINAL HYSTERECTOMY UTERUS 250 GM/< 07/29/08 Hysterectomy, vaginal w/ cystocele repair ALLERGIES Augmentin [Amoxicillin-Pot Clavulanate], Bactrim [Sulfamethoxazole], Doxycycline, Erythromycin, and Rondec [Brompheniramine-Pseudoephedrin] MEDICATIONS estradiol 0.01 % (0.1 mg/g) vaginal cream Apply pea-sized amount to urethral opening twice a week. AZO CRANBERRY (CRANBERRY EXT-C-L. SPOROGENES) 450-30-50 [id number] tab Take by mouth. multivitamin ORAL tablet Take 1 tablet by mouth once daily. diphenhydramine HCl (UNISOM SLEEPMELTS ORAL) Take by mouth. (Patient not taking: Reported on 07/23/2022) FAMILY HISTORY Problem Relation Age of Onset Breast Cancer Mother CHF age of breast cancer 60's Breast Cancer Sister late 50's, Cancer Sister BRAIN age 70 Social History Tobacco Use Smoking status: Never Smokeless tobacco: Never Vaping Use Vaping Use: Never used Substance Use Topics Alcohol use: Yes Comment: Seldom Drug use: No BP 138/80 Pulse 92 Temp 37.1 C (98.8 F) Resp 16 Wt 74.4 kg (164 lb) SpO2 96% BMI 28.15 kg/m Review of Systems Constitutional: Negative for chills, fever and malaise/fatigue. HENT: Positive for congestion, ear pain and sinus pain. Negative for ear discharge and sore throat. Eyes: Negative for blurred vision, pain, discharge and redness. Respiratory: Negative for cough, hemoptysis, sputum production, shortness of breath, wheezing and stridor. Cardiovascular: Negative for chest pain. Gastrointestinal: Negative for abdominal pain, diarrhea, nausea and vomiting. Musculoskeletal: Negative for myalgias. Skin: Negative for itching and rash. Neurological: Negative for dizziness and headaches. Objective Physical Exam Constitutional: General: She is not in acute distress. Appearance: She is not diaphoretic. HENT: Head: Normocephalic. Right Ear: Tympanic membrane, ear canal and external ear normal. Left Ear: Tympanic membrane, ear canal and external ear normal. Nose: Congestion present. Right Sinus: Maxillary sinus tenderness present. Left Sinus: Maxillary sinus tenderness present. Mouth/Throat: Mouth: Mucous membranes are moist. Pharynx: Oropharynx is clear. No oropharyngeal exudate or posterior oropharyngeal erythema. Eyes: Conjunctiva/sclera: Conjunctivae normal. Pupils: Pupils are equal, round, and reactive to light. Cardiovascular: Rate and Rhythm: Normal rate and regular rhythm. Heart sounds: Normal heart sounds. Pulmonary: Effort: Pulmonary effort is normal. No tachypnea, accessory muscle usage or respiratory distress. Breath sounds: Normal breath sounds. No stridor. No wheezing, rhonchi or rales. Abdominal: Palpations: Abdomen is soft. Tenderness: There is no abdominal tenderness. Musculoskeletal: Cervical back: Normal range of motion and neck supple. No rigidity or tenderness. Lymphadenopathy: Cervical: No cervical adenopathy. Skin: General: Skin is warm and dry. Neurological: Mental Status: She is alert and oriented to person, place, and time. ASSESSMENT/PLAN: 1. Bacterial sinusitis - ICD9: 473.9, 041.9, ICD10: J32.9, B96.89 Patient diagnosed with bacterial sinusitis. Will be placed on Augmentin. Has tolerated Keflex and Omnicef in the past. Patient was educated on supportive therapies. Patient will follow up with primary care provider as needed. Patient was instructed to immediately proceed to emergency room for any new, worsening, or symptoms lasting longer than anticipated. The patient's clinical presentation is otherwise unremarkable at this time. Based on exam and clinical finding, the patient is stable for discharge. Plan of care was discussed with patient. Patient verbalizes understanding and agrees to plan of care. This note was generated using [employer] software. It may contain errors in wording, punctuation, or spelling. Dinh Barksdale APRN.CNP documented in this encounter [facility] 03-29-2022 History of Present illness Narrative Radiology Service Progress Note PATIENT NAME: Lauryn Bang DATE OF SERVICE: March 29, 2022 TIME: 2:20 PM PATIENT IDENTITY VERIFICATION COMPLETED USING TWO (2) IDENTIFIERS: Name and Date of confirmed by patient verbally. FALL SCREENING: Has the patient had 2 falls in the last year or 1 fall with injury or currently using an Ambulatory Assistive Device (Walker, Cane, Wheelchair, Crutches, etc.)? No PATIENT GENDER DATA: Female. status: : No status: NO. PATIENT RELEVANT IMPLANT DATA REVIEWED: Yes RADIOLOGY DEPARTMENT: General X-ray: Exam(s) Completed: Lower Extremity X-Ray(s): Foot, Right and Wt. Bearing PERIPHERAL IV DATA: Not applicable SIGNED BY: RT James(R) March 29, 2022 2:20 PM documented in this encounter [facility] 03-29-2022 History of Present illness Narrative Images from the original note were not included. Subjective Patient came in with complaints of poison tyesha on inner thighs bilaterally and left side of abdomen. Has tried to treat herself with many over the counter treatments with no success. Patient also is having pain in the right foot at the base of the toes. Patient said she dropped a heavy vacume part on foot two weeks ago. She said it bruised and not the bruising is gone and the pain started to go away then she stepped wrong on a step and the pain came back. Denies any other symptoms such as loss of feeling numberless or tingling. The history is provided by the patient. No language instructor was used. Rash Review of Systems Constitutional: Negative. Skin: Positive for rash. Objective Physical Exam Constitutional: Appearance: Normal appearance. Pulmonary: Effort: Pulmonary effort is normal. Musculoskeletal: Feet: Feet: Comments: Pain is in this area when patient walks its a 6/10 and when sitting no pain. Also has some tenderness when palpated on the top. Pulse is normal. Neurological: Mental Status: She is alert. PAST MEDICAL HISTORY Diagnosis Date Benign neoplasm of colon Diaphragmatic hernia without mention of obstruction or gangrene takes tums Frequent UTI Dr. 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 + bicuspid valve Symptomatic menopausal or female climacteric states hot flashes, night sweats PAST SURGICAL HISTORY Procedure Laterality Date COLSC FLX W/RMVL OF TUMOR POLYP LESION SNARE TQ 06/04/08 EXC LESION TDN SHTH/JT CAPSL HAND/FNGR Left 03/20/2019 Excision of left thumb ganglion cyst UNSPECIFIED ORAL SURGERY PROCEDURE, BY REPORT [place] teeth extracted UNSPECIFIED ORAL SURGERY PROCEDURE, BY REPORT 12/2016 tooth extracted VAGINAL HYSTERECTOMY UTERUS 250 GM/< 07/29/08 Hysterectomy, vaginal w/ cystocele repair ALLERGIES Augmentin [Amoxicillin-Pot Clavulanate], Bactrim [Sulfamethoxazole], Doxycycline, Erythromycin, and Rondec [Brompheniramine-Pseudoephedrin] MEDICATIONS diphenhydramine HCl (UNISOM SLEEPMELTS ORAL) Take by mouth. estradiol 0.01 % (0.1 mg/g) vaginal cream Apply pea-sized amount to urethral opening twice a week. Cranberry Ext-C-L. Sporogenes ([id number] C) 450-30-50 [id number] ORAL Tab Take by mouth. multivitamin ORAL tablet Take 1 tablet by mouth once daily. FAMILY HISTORY Problem Relation Age of Onset Breast Cancer Mother CHF age of breast cancer 60's Breast Cancer Sister late 50's, Cancer Sister BRAIN age 70 Social History Tobacco Use Smoking status: Never Smoker Smokeless tobacco: Never Used Vaping Use Vaping Use: Never used Substance Use Topics Alcohol use: Yes Comment: Seldom Drug use: No ASSESSMENT/PLAN: 1. Injury - ICD9: 959.9, ICD10: T14.90XA - XR FOOT GENERAL 3V AP/LAT/OBL RIGHT COMPARISON: Correlation made to right ankle radiograph dated March 30, 2020 FINDINGS: No acute fracture or dislocation identified. Dorsal calcaneal enthesophyte. IMPRESSION IMPRESSION: No radiographic evidence of acute osseous injury Accident Examiner: CAMI Transcribe Date/Time: Mar 29 2022 2:49P Dictated by : CESILIA PEREIRA MD prednisone 9 day taper prescribed. Patient educated and will follow up if needed. Sharri Aj APRN.AYAH documented in this encounter [facility] 03-17-2022 History of Present illness Narrative Patient presents with: poison tyesha: all over x 1 week HPI: Rash: Location: Right face, neck, abdomen Duration: Over 1 week Pruritis: Yes Pain: With warm water Change: increasing Bleeding/ulceration/blister/pustu le: Red bumps Contacts with rash: No Exposure: No new soaps, detergents, fabric softeners, lotions. Outdoor exposure: mulching. Recent illness: No. Treatment: technew wash and spray. Had headaches when she used prednisone in September. PAST MEDICAL HISTORY Diagnosis Date Benign neoplasm of colon Diaphragmatic hernia without mention of obstruction or gangrene takes tums Frequent UTI Dr. 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 diphenhydramine HCl (UNISOM SLEEPMELTS ORAL) Take by mouth. estradiol 0.01 % (0.1 mg/g) vaginal cream Apply pea-sized amount to urethral opening twice a week. Cranberry Ext-C-L. Sporogenes ([id number] C) 450-30-50 [id number] ORAL Tab Take by mouth. multivitamin ORAL tablet Take 1 tablet by mouth once daily. ALLERGIES: ALLERGIES Allergen Reactions Augmentin [Amoxicil* Diarrhea Bactrim [Sulfametho* GI Upset Doxycycline Rash Erythromycin unknown Rondec [Bromphenira* unknown VITALS: BP 142/84 Pulse 76 Temp 36.7 C (98 F) (Tympanic) Resp 18 Wt 71.9 kg (158 lb 9.6 oz) SpO2 98% BMI 27.22 kg/m PHYSICAL EXAM: GEN: pleasant, no acute distress, alert SKIN: 2 linear raised erythematous lesions on the right jaw, few erythematous papules and patches on the neck and abdomen Component Latest Ref Rng & Units 09/15/2021 Glucose 74 - 99 mg/dL 95 ASSESSMENT/PLAN: 1. Contact dermatitis and other eczema, due to unspecified cause - ICD9: 692.9, ICD10: L25.9 Mild contact dermatitis. Lesions are worsening after 1 week and are present on the face. She thinks she had headache caused by prednisone when she tried using it twice in September 2021. She also has left over pills from 2019 though she does not know why she stopped the medicine early then. She wants to try systemic treatment rather than wait for the rash to resolve. - METHYLPREDNISOLONE 4 MG TABLETS IN A DOSE PACK Kieran West MD documented in this encounter [facility] Evaluation note Diagnosis Contact dermatitis and other eczema, due to unspecified cause- Primary [facility] Diagnosis Injury- Primary Injury, other and unspecified, unspecified site [facility] Diagnosis Bacterial sinusitis- Primary Unspecified sinusitis (chronic) [facility] noteNo assessment information availableWTr[facility] Phone: [facility]* Diagnosis Soreness of tongue- Primary Glossodynia [facility] Diagnosis Left lumbar pain- Primary Lumbago [facility] Diagnosis Left hip pain- Primary Pain in joint, pelvic region and thigh Lumbar pain Lumbago [facility] Diagnosis Lumbar pain- Primary Lumbago Left hip pain Pain in joint, pelvic region and thigh [facility] Diagnosis Lumbar pain- Primary Lumbago Left hip pain Pain in joint, pelvic region and thigh [facility] [place] [facility] Diagnosis Lumbar pain- Primary Lumbago Left hip pain Pain in joint, pelvic region and thigh [facility] [place] [facility] Diagnosis Lumbar pain- Primary Lumbago Left hip pain Pain in joint, pelvic region and thigh [facility] [place] [facility] Diagnosis Lumbar pain- Primary Lumbago Left hip pain Pain in joint, pelvic region and thigh [facility] [place] [facility] Diagnosis Lumbar pain- Primary Lumbago Left hip pain Pain in joint, pelvic region and thigh [facility] [place] [facility]* Diagnosis Lumbar spondylosis- Primary Lumbosacral spondylosis without myelopathy Spondylolisthesis of lumbar region Acquired spondylolisthesis Spinal stenosis, lumbar region, without neurogenic claudication [facility] [place] [facility] Diagnosis Lumbar pain- Primary Lumbago Left hip pain Pain in joint, pelvic region and thigh [facility] [place] [facility] Diagnosis Lumbar pain- Primary Lumbago Left hip pain Pain in joint, pelvic region and thigh [facility] [place] [facility] Diagnosis Acute cough- Primary Rhinosinusitis Unspecified sinusitis (chronic) documented in this encounter [facility] note* Diagnosis Spinal stenosis, lumbar region, without neurogenic claudication- Primary Spondylolisthesis of lumbar region Acquired spondylolisthesis Lumbar radiculopathy Thoracic or lumbosacral neuritis or radiculitis, unspecified Lumbar spondylosis Lumbosacral spondylosis without myelopathy Allergy history, anesthetic Personal history of allergy to anesthetic agent [facility] [place] [facility]* Diagnosis Chest pain, unspecified type- Primary Mitral valve insufficiency, unspecified etiology Palpitations Screening for hyperlipidemia Screening for lipoid disorders Fatigue, unspecified type [facility] [place] [facility]* Diagnosis Encounter to establish care- Primary Other reasons for seeking consultation Screening for colon cancer Special screening for malignant neoplasms, colon Encounter for screening mammogram for breast cancer Hyperlipidemia, mixed Mixed hyperlipidemia [facility] [place] [facility]* Diagnosis Spinal stenosis of lumbar region without neurogenic claudication Spinal stenosis, lumbar region, without neurogenic claudication [facility] [place] [facility]* Diagnosis Encounter for screening [facility]ogram for [facility] Encounter for screening mammogram for breast cancer [facility] [place] [facility]* Diagnosis Acute cough- Primary URI, acute Acute upper respiratory infections of unspecified site Acute otitis media, right Unspecified otitis media documented in this encounter [facility] note* Diagnosis Sore throat- Primary Acute pharyngitis documented in this encounter [facility] note* Diagnosis Sore throat- Primary Acute pharyngitis Seasonal allergic rhinitis, unspecified trigger Nodular thyroid disease Heart murmur Undiagnosed cardiac murmurs Nonrheumatic mitral valve regurgitation documented in this encounter [facility] note* Diagnosis Nodular thyroid disease documented in this encounter [facility] note* Diagnosis Nodular thyroid disease- Primary documented in this encounter [facility] note* Diagnosis Abnormal ultrasound of thyroid gland- Primary Nonspecific abnormal results of thyroid function study Multinodular goiter Nontoxic multinodular goiter documented in this encounter [facility] note* Diagnosis Vaginal itching- Primary Pruritus of genital organs Hives Urticaria, unspecified documented in this encounter [facility] note* Diagnosis Nonrheumatic mitral valve regurgitation- Primary Palpitations documented in this encounter [facility] note* Diagnosis Acute urticaria- Primary Other specified urticaria documented in this encounter [facility] note* Diagnosis Abnormal ultrasound of thyroid gland- Primary Nonspecific abnormal results of thyroid function study documented in this encounter [facility] note* Diagnosis 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 documented in this encounter [facility] note* Diagnosis Pre-operative examination- Primary Preoperative examination, unspecified Ganglion cyst Ganglion, unspecified Heart murmur Undiagnosed cardiac murmurs Chronic interstitial cystitis Nontoxic multinodular goiter Acute cough URI, acute Acute upper respiratory infections of unspecified site documented in this encounter [facility] note* Diagnosis Pre-operative examination- Primary Preoperative examination, unspecified Ganglion cyst Ganglion, unspecified Heart murmur Undiagnosed cardiac murmurs Chronic interstitial cystitis Nontoxic multinodular goiter Acute urticaria- Primary Other specified urticaria documented in this encounter [facility] note* Diagnosis Pre-operative examination- Primary Preoperative examination, unspecified Ganglion cyst Ganglion, unspecified Heart murmur Undiagnosed cardiac murmurs Chronic interstitial cystitis Nontoxic multinodular goiter Chest pain, unspecified type [facility] [place] [facility]* Diagnosis Pre-operative examination- Primary Preoperative examination, unspecified Ganglion cyst Ganglion, unspecified Heart murmur Undiagnosed cardiac murmurs Chronic interstitial cystitis Nontoxic multinodular goiter Acute cough [facility] [place] [facility]* Diagnosis Pre-operative examination- Primary Preoperative examination, unspecified Ganglion cyst Ganglion, unspecified Heart murmur Undiagnosed cardiac murmurs Chronic interstitial cystitis Nontoxic multinodular goiter Left hip pain Pain in joint, pelvic region and thigh Lumbar pain Lumbago [facility] [place] [facility]* Diagnosis Pre-operative examination- Primary Preoperative examination, unspecified Ganglion cyst Ganglion, unspecified Heart murmur Undiagnosed cardiac murmurs Chronic interstitial cystitis Nontoxic multinodular goiter Injury Injury, other and unspecified, unspecified site [facility] [place] [facility]* Diagnosis Pre-operative examination- Primary Preoperative examination, unspecified Ganglion cyst Ganglion, unspecified Heart murmur Undiagnosed cardiac murmurs Chronic interstitial cystitis Nontoxic multinodular goiter Encounter for screening for malignant neoplasm of colon- Primary Special screening for malignant neoplasms, colon PONV (postoperative nausea and vomiting) Nausea with vomiting [facility] [place] [facility]* Diagnosis Pre-operative examination- Primary Preoperative examination, unspecified Ganglion cyst Ganglion, unspecified Heart murmur Undiagnosed cardiac murmurs Chronic interstitial cystitis Nontoxic multinodular goiter Nasal congestion- Primary Other diseases of nasal cavity and sinuses [facility] [place] [facility]* Diagnosis Pre-operative examination- Primary Preoperative examination, unspecified Ganglion cyst Ganglion, unspecified Heart murmur Undiagnosed cardiac murmurs Chronic interstitial cystitis Nontoxic multinodular goiter Encounter for screening mammogram for breast cancer [facility] [place] [facility]* Diagnosis Pre-operative examination- Primary Preoperative examination, unspecified Ganglion cyst Ganglion, unspecified Heart murmur Undiagnosed cardiac murmurs Chronic interstitial cystitis Nontoxic multinodular goiter Encounter for screening mammogram for breast cancer [facility] [place] [facility] Diagnosis Pre-operative examination- Primary Preoperative examination, unspecified Ganglion cyst Ganglion, unspecified Heart murmur Undiagnosed cardiac murmurs Chronic interstitial cystitis Nontoxic multinodular goiter Medicare annual wellness visit, subsequent- Primary Routine general medical examination at a health care facility Osteoporosis, unspecified osteoporosis type, unspecified pathological fracture presence [facility] [place] [facility]* Diagnosis Pre-operative examination- Primary Preoperative examination, unspecified Ganglion cyst Ganglion, unspecified Heart murmur Undiagnosed cardiac murmurs Chronic interstitial cystitis Nontoxic multinodular goiter Hyperkalemia- Primary Hyperpotassemia Hypercalcemia [facility] [place] [facility]* Diagnosis Pre-operative examination- Primary Preoperative examination, unspecified Ganglion cyst Ganglion, unspecified Heart murmur Undiagnosed cardiac murmurs Chronic interstitial cystitis Nontoxic multinodular goiter Nonrheumatic mitral valve regurgitation- Primary Palpitations [facility] [place] [facility] Diagnosis Pre-operative examination- Primary Preoperative examination, unspecified Ganglion cyst Ganglion, unspecified Heart murmur Undiagnosed cardiac murmurs Chronic interstitial cystitis Nontoxic multinodular goiter Osteoporosis, unspecified osteoporosis type, unspecified pathological fracture presence [facility] [place] [facility] Diagnosis Pre-operative examination- Primary Preoperative examination, unspecified Ganglion cyst Ganglion, unspecified Heart murmur Undiagnosed cardiac murmurs Chronic interstitial cystitis Nontoxic multinodular goiter Acute cough- Primary Viral illness Unspecified viral infection, in conditions classified elsewhere and of unspecified site Diarrhea, unspecified type Acute cough [facility] [place] [facility]* Diagnosis Pre-operative examination- Primary Preoperative examination, unspecified Ganglion cyst Ganglion, unspecified Heart murmur Undiagnosed cardiac murmurs Chronic interstitial cystitis Nontoxic multinodular goiter Acute cough [facility] [place] [facility]* Diagnosis Pre-operative examination- Primary Preoperative examination, unspecified Ganglion cyst Ganglion, unspecified Heart murmur Undiagnosed cardiac murmurs Chronic interstitial cystitis Nontoxic multinodular goiter Herpes zoster without complication- Primary Herpes zoster without mention of complication Bacterial sinusitis Unspecified sinusitis (chronic) [facility] [place] [facility] Diagnosis Pre-operative examination- Primary Preoperative examination, unspecified Ganglion cyst Ganglion, unspecified Heart murmur Undiagnosed cardiac murmurs Chronic interstitial cystitis Nontoxic multinodular goiter Herpes zoster without complication Herpes zoster without mention of complication Lack of appetite Anorexia Postherpetic neuralgia Herpes zoster with other nervous system complications [facility] [place] [facility]* Diagnosis Pre-operative examination- Primary Preoperative examination, unspecified Ganglion cyst Ganglion, unspecified Heart murmur Undiagnosed cardiac murmurs Chronic interstitial cystitis Nontoxic multinodular goiter Postherpetic neuralgia Herpes zoster with other nervous system complications [facility] [place] [facility]* Diagnosis Pre-operative examination- Primary Preoperative examination, unspecified Ganglion cyst Ganglion, unspecified Heart murmur Undiagnosed cardiac murmurs Chronic interstitial cystitis Nontoxic multinodular goiter Abdominal pain, unspecified abdominal location- Primary documented in this encounter [facility] note* Diagnosis Pre-operative examination- Primary Preoperative examination, unspecified Ganglion cyst Ganglion, unspecified Heart murmur Undiagnosed cardiac murmurs Chronic interstitial cystitis Nontoxic multinodular goiter Postherpetic neuralgia- Primary Herpes zoster with other nervous system complications Generalized abdominal pain Abdominal pain, generalized Other fatigue documented in this encounter [facility] note* Diagnosis Pre-operative examination- Primary Preoperative examination, unspecified Ganglion cyst Ganglion, unspecified Heart murmur Undiagnosed cardiac murmurs Chronic interstitial cystitis Nontoxic multinodular goiter Calculus of gallbladder without cholecystitis without obstruction Calculus of gallbladder without mention of cholecystitis or obstruction documented in this encounter [facility] note* Diagnosis Pre-operative examination- Primary Preoperative examination, unspecified Ganglion cyst Ganglion, unspecified Heart murmur Undiagnosed cardiac murmurs Chronic interstitial cystitis Nontoxic multinodular goiter Nonrheumatic mitral valve regurgitation Palpitations documented in this encounter [facility] note* Diagnosis Pre-operative examination- Primary Preoperative examination, unspecified Ganglion cyst Ganglion, unspecified Heart murmur Undiagnosed cardiac murmurs Chronic interstitial cystitis Nontoxic multinodular goiter Postherpetic neuralgia- Primary Herpes zoster with other nervous system complications RUQ abdominal pain Abdominal pain, right upper quadrant Abnormal biliary HIDA scan Nonspecific abnormal results of other specified function study Calculus of gallbladder without cholecystitis without obstruction Calculus of gallbladder without mention of cholecystitis or obstruction documented in this encounter [facility] for referral (narrative)* Diagnostic Procedure Only (Urgent) - Closed Specialty Diagnoses / Procedures Referred By Rayshawn brooks Referred To Contact XR IMAGING Diagnoses Injury Procedures XR FOOT GENERAL 3V AP/LAT/OBL RIGHT RADEX FOOT COMPLETE MINIMUM 3 VIEWS Sharri Aj, NEPTALI.METALLURGICAL ENGINEERING TECHNICIAN [address] [place] [address] Xr Imaging Referral ID Status Reason Start Date Expiration Date V isits Requested Visits Authorized [id number] Closed Auto-Generate d Referral 03/29/2022 04/28/2023 1 1 [facility] for referral (narrative)* Diagnostic Procedure Only (Routine) - Closed Specialty Diagnoses / Procedures Referred By Contac t Referred To Contact XR IMAGING Diagnoses Lumbar pain Procedures XR LUMBAR GENERAL 3V AP/LAT/L5-S1 RADEX SPINE LUMBOSACRAL 2/3 VIEWS JalynlogAshlyn luevano APRN.METALLURGICAL ENGINEERING TECHNICIAN [address] [place] [address] Xr Imaging Referral ID Status Reason Start Date Expiration Date V isits Requested Visits Authorized [id number] Closed Auto-Generate d Referral 10/17/2022 11/16/2023 1 1 * Diagnostic Procedure Only (Routine) - Closed Specialty Diagnoses / Procedures Referred By Contac t Referred To Contact XR IMAGING Diagnoses Left hip pain Procedures XR HIP GENERAL 3V PELV/AP/LAT LEFT RADEX HIP UNILATERAL WITH PELVIS 2-3 VIEWS Ashlyn Keita APRN.METALLURGICAL ENGINEERING TECHNICIAN [address] [place] [address] Xr Imaging Referral ID Status Reason Start Date Expiration Date V isits Requested Visits Authorized [id number] Closed Auto-Generate d Referral 10/17/2022 11/16/2023 1 1 [facility] for referral (narrative)* Diagnostic Procedure Only (Routine) - Authorized Specialty Diagnoses / Procedures Referred By Contac t Referred To Contact BR IMAGING Diagnoses Encounter for screening mammogram for breast cancer Procedures TINO SCREENING SCREENING MAMMOGRAPHY BI 2-VIEW BREAST INC CAD PodlogAshlyn luevano APRN.METALLURGICAL ENGINEERING TECHNICIAN [address] [place] [address] [facility] Imaging [address] [place] [address] Referral ID Status Reason Start Date Expiration Date Visits Requested Visits Authorized [id number] Authorized Auto-Generat ed Referral 3 08/16/2024 1 1 * Consult, Test, Treat (Routine) - Pending Review Specialty Diagnoses / Procedures Referred By Contac t Referred To Contact General Surgery Diagnoses Screening for colon cancer Procedures CONSULT TO GENERAL SURGERY OFFICE/OUTPATIENT [facility] 60-74 MINUTES Ashlyn Keita APRN.CNP [address] [place] [address] Referral ID Status Reason Start Date Expiration Date Visits Requested Visits Authorized [id number] Pending Review PCP Requested Referral 3 07/17/2024 1 1 [facility] for referral (narrative)* Diagnostic Procedure Only (Routine) - Closed Specialty Diagnoses / Procedures Referred By Rayshawn t Referred To Contact BR IMAGING Diagnoses Encounter for screening mammogram for breast cancer Procedures TINO SCREENING W GIANLUCA SCREENING BREAST DGTL GIANLUCA UNI/BILAT ADD ON SCREENING MAMMOGRAPHY BI 2-VIEW BREAST INC CAD Júnior Raygoza MD [address] [place] [address] [place] [address] Br Imaging [address] [place] [address] Referral ID Status Reason Start Date Expiration Date V isits Requested Visits Authorized [id number] Closed Auto-Generate d Referral 09/08/2021 10/08/2022 1 1 [facility] for referral (narrative)* Diagnostic Procedure Only (Routine) - New Request Specialty Diagnoses / Procedures Referred By Contac t Referred To Contact US IMAGING Diagnoses Nodular thyroid disease Procedures US THYROID/PARATHYROID US SOFT TISSUE HEAD & NECK REAL TIME IMGE Perry Story MD [address] [place] [address] [place] [address] Referral ID Status Reason Start Date Expiration Date Visits Requested Visits Authorized [id number] New Request Auto-Generat ed Referral 04/24/2025 05/24/2025 1 1 * Consult, Test, Treat (Routine) - Authorized Specialty Diagnoses / Procedures Referred By Contac t Referred To Contact General Surgery Diagnoses Nodular thyroid disease Procedures CONSULT TO GENERAL SURGERY OFFICE/OUTPATIENT [facility] [employer] [facility] 60 MINUTES Perry Bautista MD [address] [place] [address] Referral ID Status Reason Start Date Expiration Date Visits Requested Visits Authorized [id number] Authorized PCP Requested Referral 04/24/2024 04/24/2025 1 1 [facility] for referral (narrative)* Outpatient Procedure (Routine) - Authorized Specialty Diagnoses / Procedures Referred By Contac t Referred To Contact [facility] Diagnoses Nonrheumatic mitral valve regurgitation Palpitations Procedures ECHO ECHO TTHRC R-T 2D W/WOM-MODE COMPL SPEC&COLR D Bety Iglesias MD [address] [place] [address] [facility] [place] [address] [place] [address] Referral ID Status Reason Start Date Expiration Date Visits Requested Visits Authorized [id number] Authorized Auto-Generat ed Referral 07/09/2024 05/06/2025 1 1 [facility] for referral (narrative)* Diagnostic Procedure Only (Routine) - Closed Specialty Diagnoses / Procedures Referred By Contac t Referred To Contact XR IMAGING Diagnoses Lumbar pain Procedures XR LUMBAR GENERAL 3V AP/LAT/L5-S1 RADEX SPINE LUMBOSACRAL 2/3 VIEWS Podlogar, APRN. AshlynMETALLURGICAL ENGINEERING TECHNICIAN [address] [place] [address] [place] [address] Referral ID Status Reason Start Date Expiration Date V isits Requested Visits Authorized [id number] Closed Auto-Generate d Referral 10/17/2022 11/16/2023 1 1 * Diagnostic Procedure Only (Routine) - Closed Specialty Diagnoses / Procedures Referred By Contac t Referred To Contact XR IMAGING Diagnoses Left hip pain Procedures XR HIP GENERAL 3V PELV/AP/LAT LEFT RADEX HIP UNILATERAL WITH PELVIS 2-3 VIEWS Ashlyn Keita APRN.METALLURGICAL ENGINEERING TECHNICIAN [address] [place] [address] [place] [address] Referral ID Status Reason Start Date Expiration Date V isits Requested Visits Authorized [id number] Closed Auto-Generate d Referral 10/17/2022 11/16/2023 1 1 [facility] for referral (narrative)* Diagnostic Procedure Only (Urgent) - Closed Specialty Diagnoses / Procedures Referred By Contac t Referred To Contact XR IMAGING Diagnoses Injury Procedures XR FOOT GENERAL 3V AP/LAT/OBL RIGHT RADEX FOOT COMPLETE MINIMUM 3 VIEWS Sharri Aj APRN.METALLURGICAL ENGINEERING TECHNICIAN [address] [place] [address] [place] [address] Referral ID Status Reason Start Date Expiration Date V isits Requested Visits Authorized [id number] Closed Auto-Generate d Referral 03/29/2022 04/28/2023 1 1 [facility] for referral (narrative)* Outpatient Procedure (Routine) - Closed Specialty Diagnoses / Procedures Referred By Contac t Referred To Contact [facility] Diagnoses Encounter for screening for malignant neoplasm of colon Procedures COLONOSCOPY SCREENING COLONOSCOPY FLX DX W/COLLJ SPEC WHEN PFRMD Freda Saab PA-C [address] [place] [address] [facility] [address] [place] [id number] Referral ID Status Reason Start Date Expiration Date V isits Requested Visits Authorized [id number] Closed Auto-Generate d Referral 10/26/2023 10/26/2024 1 1 [facility] for referral (narrative)* Diagnostic Procedure Only (Routine) - New Request Specialty Diagnoses / Procedures Referred By Contac t Referred To Contact BR IMAGING Diagnoses Encounter for screening mammogram for breast cancer Procedures TINO SCREENING W GIANLUCA SCREENING DIGITAL BREAST TOMOSYNTHESIS BI SCREENING MAMMOGRAPHY BI 2-VIEW BREAST INC Perry Ferreira MD [address] [place] [address] [facility] [address] [place] [address] Referral ID Status Reason Start Date Expiration Date Visits Requested Visits Authorized [id number] New Request Auto-Generat ed Referral 10/15/2024 11/14/2025 1 1 [facility] for referral (narrative)* Diagnostic Procedure Only (Routine) - Closed Specialty Diagnoses / Procedures Referred By Contac t Referred To Contact BR IMAGING Diagnoses Encounter for screening mammogram for breast cancer Procedures TINO SCREENING W GIANLUCA SCREENING DIGITAL BREAST TOMOSYNTHESIS BI SCREENING MAMMOGRAPHY BI 2-VIEW BREAST INC Perry Ferreira MD [address] [place] [address] [facility] [address] [place] [address] Referral ID Status Reason Start Date Expiration Date V isits Requested Visits Authorized [id number] Closed Auto-Generate d Referral 10/15/2024 11/14/2025 1 1 [facility] for referral (narrative)* Diagnostic Procedure Only (Routine) - Authorized Specialty Diagnoses / Procedures Referred By Contac t Referred To Contact XR IMAGING Diagnoses Osteoporosis, unspecified osteoporosis type, unspecified pathological fracture presence Procedures DXA-AXIAL SKELETON DXA BONE DENSITY STUDY / SITES AXIAL SKEL Ashlyn Keita APRN.METALLURGICAL ENGINEERING TECHNICIAN [address] [place] [address] [place] [address] Referral ID Status Reason Start Date Expiration Date Visits Requested Visits Authorized [id number] Authorized Auto-Generat ed Referral 11/12/2024 12/12/2025 1 1 [facility] for visit Narrative* Diagnostic Procedure Only (Routine) - Closed Specialty Diagnoses / Procedures Referred By Contac t Referred To Contact BR IMAGING Diagnoses Encounter for screening mammogram for breast cancer Procedures TINO SCREENING W GIANLUCA SCREENING BREAST DGTL GIANLUCA UNI/BILAT ADD ON SCREENING MAMMOGRAPHY BI 2-VIEW BREAST INC CAD Júnior Raygoza MD [address] [place] [address] [place] [address] [facility] Imaging [address] [place] [address] Referral ID Status Reason Start Date Expiration Date V isits Requested Visits Authorized [id number] Closed Auto-Generate d Referral 09/08/2021 10/08/2022 1 1 [facility] for visit Narrative* Diagnostic Procedure Only (Routine) - Closed Specialty Diagnoses / Procedures Referred By Contaj t Referred To Contact BR IMAGING Diagnoses Encounter for screening mammogram for breast cancer Procedures TINO SCREENING SCREENING MAMMOGRAPHY BI 2-VIEW BREAST INC CAD Ashlyn Keita APRN.METALLURGICAL ENGINEERING TECHNICIAN [address] [place] [address] [facility] [address] [place] [address] Referral ID Status Reason Start Date Expiration Date V isits Requested Visits Authorized [id number] Closed Auto-Generate d Referral 07/18/2023 08/16/2024 1 1 [facility] for visit Narrative* Diagnostic Procedure Only (Routine) - Closed Specialty Diagnoses / Procedures Referred By Rayshawn t Referred To Contact US IMAGING Diagnoses Nodular thyroid disease Procedures US THYROID/PARATHYROID US SOFT TISSUE HEAD & NECK REAL TIME IMGE Perry Story MD [address] [place] [address] [place] [address] Referral ID Status Reason Start Date Expiration Date V isits Requested Visits Authorized [id number] Closed Auto-Generate d Referral 03/30/2024 04/29/2025 1 1 [facility] for visit Narrative* Diagnostic Procedure Only (Routine) - Closed Specialty Diagnoses / Procedures Referred By Contac t Referred To Contact XR IMAGING Diagnoses Lumbar pain Procedures XR LUMBAR GENERAL 3V AP/LAT/L5-S1 RADEX SPINE LUMBOSACRAL 2/3 VIEWS Ashlyn Keita PLYWOOD PATCHER.METALLURGICAL ENGINEERING TECHNICIAN [address] [place] [address] [place] [address] Referral ID Status Reason Start Date Expiration Date V isits Requested Visits Authorized [id number] Closed Auto-Generate d Referral 10/17/2022 11/16/2023 1 1 [facility] for visit Narrative* Diagnostic Procedure Only (Urgent) - Closed Specialty Diagnoses / Procedures Referred By Contac t Referred To Contact XR IMAGING Diagnoses Injury Procedures XR FOOT GENERAL 3V AP/LAT/OBL RIGHT RADEX FOOT COMPLETE MINIMUM 3 VIEWS Sharri Aj, NEPTALI.METALLURGICAL ENGINEERING TECHNICIAN [address] [place] [address] [place] [address] Referral ID Status Reason Start Date Expiration Date V isits Requested Visits Authorized [id number] Closed Auto-Generate d Referral 03/29/2022 04/28/2023 1 1 [facility] for visit Narrative* Diagnostic Procedure Only (Routine) - Closed Specialty Diagnoses / Procedures Referred By Contac t Referred To Contact BR IMAGING Diagnoses Encounter for screening mammogram for breast cancer Procedures TINO SCREENING W GIANLUCA SCREENING DIGITAL BREAST TOMOSYNTHESIS BI SCREENING MAMMOGRAPHY BI 2-VIEW BREAST INC Perry Ferreira MD [address] [place] [address] [facility] [address] [place] [address] Referral ID Status Reason Start Date Expiration Date V isits Requested Visits Authorized [id number] Closed Auto-Generate d Referral 10/15/2024 11/14/2025 1 1 [facility] for visit Narrative* Diagnostic Procedure Only (Routine) - Closed Specialty Diagnoses / Procedures Referred By Contac t Referred To Contact XR IMAGING Diagnoses Osteoporosis, unspecified osteoporosis type, unspecified pathological fracture presence Procedures DXA-AXIAL SKELETON DXA BONE DENSITY STUDY SITES AXIAL SKEL PodlogAshlyn luevano APRN.METALLURGICAL ENGINEERING TECHNICIAN [address] [place] [address] Phone: tel: fax: [place] [address] Referral ID Status Reason Start Date Expiration Date V isits Requested Visits Authorized [id number] Closed Auto-Generate d Referral 11/12/2024 12/12/2025 1 1 [facility] Summary Purpose Family History No Family History Records FoundNo Family History Records FoundNo Family History Records FoundNo Family History Records Found Advance Directives No Advanced Directives Records FoundDocuments on File Type Date Recorded Patient Integration Director Expl anation Advance Directive(s) Advance Directive(s) 03/20/2019 11:46 AM Advance Directive(s) 02/28/2019 4:29 PM Documents on File Type Date Recorded Patient Integration Director Expl anation Advance Directive(s) Advance Directive(s) 03/20/2019 11:46 AM Advance Directive(s) 02/28/2019 4:29 PM Advance Directive Response Recorded Date/ Time Living Will No December 03 12:59pm Power of Revenue Stamper No December 03, 2020 12:59pm Chief Complaint and Reason for Visit Chief Complaint NEED ORDER Reason for Referral Specialty Diagnoses / Procedures Referred By Contac t Referred To Contact [facility] Diagnoses Lumbar pain Left hip pain Procedures CONSULT TO PHYSICAL THERAPY PHYSICAL THERAPY EVALUATION HIGH COMPLEX 45 MINS Ashlyn Keita, NEPTALI.METALLURGICAL ENGINEERING TECHNICIAN [address] [place] [address] [facility] [address] [place] [address] Referral ID Status Reason Start Date Expiration Date Visits Requested Visits Authorized [id number] Pending Review Auto-Generat ed Referral 10/18/2022 10/18/2023 1 1 Specialty Diagnoses / Procedures Referred By Contac t Referred To Contact Allergy Diagnoses Allergy history, anesthetic Procedures CONSULT TO ALLERGY/IMMUNOLOGY OFFICE/OUTPATIENT NEW HIGH MDM 60-74 MINUTES Leonard Poe MD [address] [facility] [address] [place] [address] Referral ID Status Reason Start Date Expiration Date Visits Requested Visits Authorized [id number] Pending Review PCP Requested Referral 04/20/2023 04/19/2024 1 1 Specialty Diagnoses / Procedures Referred By Contac t Referred To Contact Cardiology Diagnoses Chest pain, unspecified type Procedures CONSULT TO CARDIOLOGY OFFICE/OUTPATIENT NEW HIGH MDM 60-74 MINUTES Podlogar, Ashlyn, PLYWOOD PATCHER.METALLURGICAL ENGINEERING TECHNICIAN [address] [place] [address] Referral ID Status Reason Start Date Expiration Date Visits Requested Visits Authorized [id number] Pending Review PCP Requested Referral 06/30/2023 06/29/2024 1 1 Specialty Diagnoses / Procedures Referred By Contac t Referred To Contact [facility] Diagnoses Chest pain, unspecified type Heart murmur Mitral valve insufficiency, unspecified etiology Procedures ECHO ECHO TTHRC R-T 2D W/WOM-MODE COMPL SPEC&COLR D Podlogar, Ashlyn, PLYWOOD PATCHER.METALLURGICAL ENGINEERING TECHNICIAN [address] [place] [address] [facility] [address] [place] [address] Referral ID Status Reason Start Date Expiration Date Visits Requested Visits Authorized [id number] Authorized Auto-Generat ed Referral 06/30/2023 06/29/2024 1 1 Specialty Diagnoses / Procedures Referred By Contac t Referred To Contact [facility] [place] Diagnoses Chest pain, unspecified type Procedures ECG COMPLETE ECG ROUTINE ECG W/LEAST 12 LDS W/I&R Podlogar, Ashlyn, PLYWOOD PATCHER.METALLURGICAL ENGINEERING TECHNICIAN [address] [place] [address] [facility] [place] [address] [place] [address] Referral ID Status Reason Start Date Expiration Date V isits Requested Visits Authorized [id number] Closed Auto-Generate d Referral 06/30/2023 06/29/2024 1 1 Specialty Diagnoses / Procedures Referred By Contac t Referred To Contact MR IMAGING Diagnoses Spinal stenosis of lumbar region without neurogenic claudication Procedures MRI LUMBAR SPINE WO IVCON MRI SPINAL CANAL LUMBAR W/O CONTRAST MATERIAL Leonard Poe MD [address] [facility] [address] [place] [address] [place] [address] Referral ID Status Reason Start Date Expiration Date V isits Requested Visits Authorized [id number] Closed Auto-Generate d Referral 02/02/2023 03/03/2024 1 1 Specialty Diagnoses / Procedures Referred By Contac t Referred To Contact Endocrinology Diagnoses Nodular thyroid disease Procedures CONSULT TO ENDOCRINOLOGY OFFICE/OUTPATIENT [facility] 60 MINUTES Perry Bautista MD [address] [place] [address] Referral ID Status Reason Start Date Expiration Date Visits Requested Visits Authorized [id number] Authorized PCP Requested Referral 03/30/2024 03/30/2025 1 1 Specialty Diagnoses / Procedures Referred By Contac t Referred To Contact US IMAGING Diagnoses Nodular thyroid disease Procedures US THYROID/PARATHYROID US SOFT TISSUE HEAD & NECK REAL TIME IMGE DOCM Perry Bautista MD [address] [place] [address] [place] [address] Referral ID Status Reason Start Date Expiration Date Visits Requested Visits Authorized [id number] Authorized Auto-Generat ed Referral 03/30/2024 04/29/2025 1 1 Health Concerns Infection Onset Date Last Indicated Resolved Time COVID-19 Rule-Out 01/20/2023 01/20/2023 01/21/2023 12:41 AM EDT Infection Onset Date Last Indicated Resolved Time COVID-19 Rule-Out 11/22/2023 11/22/2023 11/22/2023 8:30 PM EST Additional Source Comments INFORMATION SOURCE (unrecogn ized section and content) DATE CREATED AUTHOR 03/20/2019 [facility] DATE CREATED AUTHOR AUTHOR'S ORGANIZ ATION 12/09/2023 [facility] DATE CREATED AUTHOR AUTHOR'S ORGANIZ ATION 05/27/2024 [facility] DATE CREATED AUTHOR AUTHOR'S ORGANIZ ATION 07/15/2025 [facility] Source Comments (unrecognize d section and content) In the event this informatio n is protected by the Federal Confidentiality of Alcohol and Drug Abuse Patient Records regulations: The Federal rules restrict any use of the information to criminally investigate or prosecute any alcohol or drug abuse patient.[facility] the event this information is protected by the Federal Confidentiality of Alcohol and Drug Abuse Patient Records regulations: The Federal rules restrict any use of the information to criminally investigate or prosecute any alcohol or drug abuse patient.[facility] the event this information is protected by the Federal Confidentiality of Alcohol and Drug Abuse Patient Records regulations: The Federal rules restrict any use of the information to criminally investigate or prosecute any alcohol or drug abuse patient.[facility] the event this information is protected by the Federal Confidentiality of Alcohol and Drug Abuse Patient Records regulations: The Federal rules restrict any use of the information to criminally investigate or prosecute any alcohol or drug abuse patient.[facility] the event this information is protected by the Federal Confidentiality of Alcohol and Drug Abuse Patient Records regulations: The Federal rules restrict any use of the information to criminally investigate or prosecute any alcohol or drug abuse patient.[facility] the event this information is protected by the Federal Confidentiality of Alcohol and Drug Abuse Patient Records regulations: The Federal rules restrict any use of the information to criminally investigate or prosecute any alcohol or drug abuse patient.[facility] the event this information is protected by the Federal Confidentiality of Alcohol and Drug Abuse Patient Records regulations: The Federal rules restrict any use of the information to criminally investigate or prosecute any alcohol or drug abuse patient.[facility] the event this information is protected by the Federal Confidentiality of Alcohol and Drug Abuse Patient Records regulations: The Federal rules restrict any use of the information to criminally investigate or prosecute any alcohol or drug abuse patient.[facility] the event this information is protected by the Federal Confidentiality of Alcohol and Drug Abuse Patient Records regulations: The Federal rules restrict any use of the information to criminally investigate or prosecute any alcohol or drug abuse patient.[facility] the event this information is protected by the Federal Confidentiality of Alcohol and Drug Abuse Patient Records regulations: The Federal rules restrict any use of the information to criminally investigate or prosecute any alcohol or drug abuse patient.[facility] the event this information is protected by the Federal Confidentiality of Alcohol and Drug Abuse Patient Records regulations: The Federal rules restrict any use of the information to criminally investigate or prosecute any alcohol or drug abuse patient.[facility] the event this information is protected by the Federal Confidentiality of Alcohol and Drug Abuse Patient Records regulations: The Federal rules restrict any use of the information to criminally investigate or prosecute any alcohol or drug abuse patient.[facility] the event this information is protected by the Federal Confidentiality of Alcohol and Drug Abuse Patient Records regulations: The Federal rules restrict any use of the information to criminally investigate or prosecute any alcohol or drug abuse patient.[facility] the event this information is protected by the Federal Confidentiality of Alcohol and Drug Abuse Patient Records regulations: The Federal rules restrict any use of the information to criminally investigate or prosecute any alcohol or drug abuse patient.[facility] the event this information is protected by the Federal Confidentiality of Alcohol and Drug Abuse Patient Records regulations: The Federal rules restrict any use of the information to criminally investigate or prosecute any alcohol or drug abuse patient.[facility] the event this information is protected by the Federal Confidentiality of Alcohol and Drug Abuse Patient Records regulations: The Federal rules restrict any use of the information to criminally investigate or prosecute any alcohol or drug abuse patient.[facility] the event this information is protected by the Federal Confidentiality of Alcohol and Drug Abuse Patient Records regulations: The Federal rules restrict any use of the information to criminally investigate or prosecute any alcohol or drug abuse patient.[facility] the event this information is protected by the Federal Confidentiality of Alcohol and Drug Abuse Patient Records regulations: The Federal rules restrict any use of the information to criminally investigate or prosecute any alcohol or drug abuse patient.[facility] the event this information is protected by the Federal Confidentiality of Alcohol and Drug Abuse Patient Records regulations: The Federal rules restrict any use of the information to criminally investigate or prosecute any alcohol or drug abuse patient.[facility] the event this information is protected by the Federal Confidentiality of Alcohol and Drug Abuse Patient Records regulations: The Federal rules restrict any use of the information to criminally investigate or prosecute any alcohol or drug abuse patient.[facility] the event this information is protected by the Federal Confidentiality of Alcohol and Drug Abuse Patient Records regulations: The Federal rules restrict any use of the information to criminally investigate or prosecute any alcohol or drug abuse patient.[facility] the event this information is protected by the Federal Confidentiality of Alcohol and Drug Abuse Patient Records regulations: The Federal rules restrict any use of the information to criminally investigate or prosecute any alcohol or drug abuse patient.[facility] the event this information is protected by the Federal Confidentiality of Alcohol and Drug Abuse Patient Records regulations: The Federal rules restrict any use of the information to criminally investigate or prosecute any alcohol or drug abuse patient.[facility] HospitalIn the event this information is protected by the Federal Confidentiality of Alcohol and Drug Abuse Patient Records regulations: The Federal rules restrict any use of the information to criminally investigate or prosecute any alcohol or drug abuse patient.[facility] HospitalIn the event this information is protected by the Federal Confidentiality of Alcohol and Drug Abuse Patient Records regulations: The Federal rules restrict any use of the information to criminally investigate or prosecute any alcohol or drug abuse patient.[facility] HospitalIn the event this information is protected by the Federal Confidentiality of Alcohol and Drug Abuse Patient Records regulations: The Federal rules restrict any use of the information to criminally investigate or prosecute any alcohol or drug abuse patient.[facility] HospitalIn the event this information is protected by the Federal Confidentiality of Alcohol and Drug Abuse Patient Records regulations: The Federal rules restrict any use of the information to criminally investigate or prosecute any alcohol or drug abuse patient.[facility] HospitalIn the event this information is protected by the Federal Confidentiality of Alcohol and Drug Abuse Patient Records regulations: The Federal rules restrict any use of the information to criminally investigate or prosecute any alcohol or drug abuse patient.[facility] HospitalIn the event this information is protected by the Federal Confidentiality of Alcohol and Drug Abuse Patient Records regulations: The Federal rules restrict any use of the information to criminally investigate or prosecute any alcohol or drug abuse patient.[facility] HospitalIn the event this information is protected by the Federal Confidentiality of Alcohol and Drug Abuse Patient Records regulations: The Federal rules restrict any use of the information to criminally investigate or prosecute any alcohol or drug abuse patient.[facility] HospitalIn the event this information is protected by the Federal Confidentiality of Alcohol and Drug Abuse Patient Records regulations: The Federal rules restrict any use of the information to criminally investigate or prosecute any alcohol or drug abuse patient.[facility] HospitalIn the event this information is protected by the Federal Confidentiality of Alcohol and Drug Abuse Patient Records regulations: The Federal rules restrict any use of the information to criminally investigate or prosecute any alcohol or drug abuse patient.[facility] HospitalIn the event this information is protected by the Federal Confidentiality of Alcohol and Drug Abuse Patient Records regulations: The Federal rules restrict any use of the information to criminally investigate or prosecute any alcohol or drug abuse patient.[facility] HospitalIn the event this information is protected by the Federal Confidentiality of Alcohol and Drug Abuse Patient Records regulations: The Federal rules restrict any use of the information to criminally investigate or prosecute any alcohol or drug abuse patient.[facility] HospitalIn the event this information is protected by the Federal Confidentiality of Alcohol and Drug Abuse Patient Records regulations: The Federal rules restrict any use of the information to criminally investigate or prosecute any alcohol or drug abuse patient.[facility] HospitalIn the event this information is protected by the Federal Confidentiality of Alcohol and Drug Abuse Patient Records regulations: The Federal rules restrict any use of the information to criminally investigate or prosecute any alcohol or drug abuse patient.[facility] HospitalIn the event this information is protected by the Federal Confidentiality of Alcohol and Drug Abuse Patient Records regulations: The Federal rules restrict any use of the information to criminally investigate or prosecute any alcohol or drug abuse patient.[facility] HospitalIn the event this information is protected by the Federal Confidentiality of Alcohol and Drug Abuse Patient Records regulations: The Federal rules restrict any use of the information to criminally investigate or prosecute any alcohol or drug abuse patient.[facility] HospitalIn the event this information is protected by the Federal Confidentiality of Alcohol and Drug Abuse Patient Records regulations: The Federal rules restrict any use of the information to criminally investigate or prosecute any alcohol or drug abuse patient.[facility] HospitalIn the event this information is protected by the Federal Confidentiality of Alcohol and Drug Abuse Patient Records regulations: The Federal rules restrict any use of the information to criminally investigate or prosecute any alcohol or drug abuse patient.[facility] HospitalIn the event this information is protected by the Federal Confidentiality of Alcohol and Drug Abuse Patient Records regulations: The Federal rules restrict any use of the information to criminally investigate or prosecute any alcohol or drug abuse patient.[facility] HospitalIn the event this information is protected by the Federal Confidentiality of Alcohol and Drug Abuse Patient Records regulations: The Federal rules restrict any use of the information to criminally investigate or prosecute any alcohol or drug abuse patient.[facility] HospitalIn the event this information is protected by the Federal Confidentiality of Alcohol and Drug Abuse Patient Records regulations: The Federal rules restrict any use of the information to criminally investigate or prosecute any alcohol or drug abuse patient.[facility] HospitalIn the event this information is protected by the Federal Confidentiality of Alcohol and Drug Abuse Patient Records regulations: The Federal rules restrict any use of the information to criminally investigate or prosecute any alcohol or drug abuse patient.[facility] HospitalIn the event this information is protected by the Federal Confidentiality of Alcohol and Drug Abuse Patient Records regulations: The Federal rules restrict any use of the information to criminally investigate or prosecute any alcohol or drug abuse patient.[facility] HospitalIn the event this information is protected by the Federal Confidentiality of Alcohol and Drug Abuse Patient Records regulations: The Federal rules restrict any use of the information to criminally investigate or prosecute any alcohol or drug abuse patient.[facility] HospitalIn the event this information is protected by the Federal Confidentiality of Alcohol and Drug Abuse Patient Records regulations: The Federal rules restrict any use of the information to criminally investigate or prosecute any alcohol or drug abuse patient.[facility] HospitalIn the event this information is protected by the Federal Confidentiality of Alcohol and Drug Abuse Patient Records regulations: The Federal rules restrict any use of the information to criminally investigate or prosecute any alcohol or drug abuse patient.[facility] HospitalIn the event this information is protected by the Federal Confidentiality of Alcohol and Drug Abuse Patient Records regulations: The Federal rules restrict any use of the information to criminally investigate or prosecute any alcohol or drug abuse patient.[facility] HospitalIn the event this information is protected by the Federal Confidentiality of Alcohol and Drug Abuse Patient Records regulations: The Federal rules restrict any use of the information to criminally investigate or prosecute any alcohol or drug abuse patient.[facility] HospitalIn the event this information is protected by the Federal Confidentiality of Alcohol and Drug Abuse Patient Records regulations: The Federal rules restrict any use of the information to criminally investigate or prosecute any alcohol or drug abuse patient.[facility] HospitalIn the event this information is protected by the Federal Confidentiality of Alcohol and Drug Abuse Patient Records regulations: The Federal rules restrict any use of the information to criminally investigate or prosecute any alcohol or drug abuse patient.[facility] HospitalIn the event this information is protected by the Federal Confidentiality of Alcohol and Drug Abuse Patient Records regulations: The Federal rules restrict any use of the information to criminally investigate or prosecute any alcohol or drug abuse patient.[facility] HospitalIn the event this information is protected by the Federal Confidentiality of Alcohol and Drug Abuse Patient Records regulations: The Federal rules restrict any use of the information to criminally investigate or prosecute any alcohol or drug abuse patient.[facility] HospitalIn the event this information is protected by the Federal Confidentiality of Alcohol and Drug Abuse Patient Records regulations: The Federal rules restrict any use of the information to criminally investigate or prosecute any alcohol or drug abuse patient.[facility] HospitalIn the event this information is protected by the Federal Confidentiality of Alcohol and Drug Abuse Patient Records regulations: The Federal rules restrict any use of the information to criminally investigate or prosecute any alcohol or drug abuse patient.[facility] HospitalIn the event this information is protected by the Federal Confidentiality of Alcohol and Drug Abuse Patient Records regulations: The Federal rules restrict any use of the information to criminally investigate or prosecute any alcohol or drug abuse patient.[facility] HospitalIn the event this information is protected by the Federal Confidentiality of Alcohol and Drug Abuse Patient Records regulations: The Federal rules restrict any use of the information to criminally investigate or prosecute any alcohol or drug abuse patient.[facility] HospitalIn the event this information is protected by the Federal Confidentiality of Alcohol and Drug Abuse Patient Records regulations: The Federal rules restrict any use of the information to criminally investigate or prosecute any alcohol or drug abuse patient.[facility] HospitalIn the event this information is protected by the Federal Confidentiality of Alcohol and Drug Abuse Patient Records regulations: The Federal rules restrict any use of the information to criminally investigate or prosecute any alcohol or drug abuse patient.[facility] HospitalIn the event this information is protected by the Federal Confidentiality of Alcohol and Drug Abuse Patient Records regulations: The Federal rules restrict any use of the information to criminally investigate or prosecute any alcohol or drug abuse patient.[facility] HospitalIn the event this information is protected by the Federal Confidentiality of Alcohol and Drug Abuse Patient Records regulations: The Federal rules restrict any use of the information to criminally investigate or prosecute any alcohol or drug abuse patient.[facility] HospitalIn the event this information is protected by the Federal Confidentiality of Alcohol and Drug Abuse Patient Records regulations: The Federal rules restrict any use of the information to criminally investigate or prosecute any alcohol or drug abuse patient.[facility] HospitalIn the event this information is protected by the Federal Confidentiality of Alcohol and Drug Abuse Patient Records regulations: The Federal rules restrict any use of the information to criminally investigate or prosecute any alcohol or drug abuse patient.[facility] HospitalIn the event this information is protected by the Federal Confidentiality of Alcohol and Drug Abuse Patient Records regulations: The Federal rules restrict any use of the information to criminally investigate or prosecute any alcohol or drug abuse patient.[facility] HospitalIn the event this information is protected by the Federal Confidentiality of Alcohol and Drug Abuse Patient Records regulations: The Federal rules restrict any use of the information to criminally investigate or prosecute any alcohol or drug abuse patient.[facility] HospitalIn the event this information is protected by the Federal Confidentiality of Alcohol and Drug Abuse Patient Records regulations: The Federal rules restrict any use of the information to criminally investigate or prosecute any alcohol or drug abuse patient.[facility] HospitalIn the event this information is protected by the Federal Confidentiality of Alcohol and Drug Abuse Patient Records regulations: The Federal rules restrict any use of the information to criminally investigate or prosecute any alcohol or drug abuse patient.[facility] HospitalIn the event this information is protected by the Federal Confidentiality of Alcohol and Drug Abuse Patient Records regulations: The Federal rules restrict any use of the information to criminally investigate or prosecute any alcohol or drug abuse patient.[facility] HospitalIn the event this information is protected by the Federal Confidentiality of Alcohol and Drug Abuse Patient Records regulations: The Federal rules restrict any use of the information to criminally investigate or prosecute any alcohol or drug abuse patient.[facility] HospitalIn the event this information is protected by the Federal Confidentiality of Alcohol and Drug Abuse Patient Records regulations: The Federal rules restrict any use of the information to criminally investigate or prosecute any alcohol or drug abuse patient.[facility] HospitalIn the event this information is protected by the Federal Confidentiality of Alcohol and Drug Abuse Patient Records regulations: The Federal rules restrict any use of the information to criminally investigate or prosecute any alcohol or drug abuse patient.[facility] HospitalIn the event this information is protected by the Federal Confidentiality of Alcohol and Drug Abuse Patient Records regulations: The Federal rules restrict any use of the information to criminally investigate or prosecute any alcohol or drug abuse patient.[facility] HospitalIn the event this information is protected by the Federal Confidentiality of Alcohol and Drug Abuse Patient Records regulations: The Federal rules restrict any use of the information to criminally investigate or prosecute any alcohol or drug abuse patient.[facility] HospitalIn the event this information is protected by the Federal Confidentiality of Alcohol and Drug Abuse Patient Records regulations: The Federal rules restrict any use of the information to criminally investigate or prosecute any alcohol or drug abuse patient.[facility] HospitalIn the event this information is protected by the Federal Confidentiality of Alcohol and Drug Abuse Patient Records regulations: The Federal rules restrict any use of the information to criminally investigate or prosecute any alcohol or drug abuse patient.[facility] HospitalIn the event this information is protected by the Federal Confidentiality of Alcohol and Drug Abuse Patient Records regulations: The Federal rules restrict any use of the information to criminally investigate or prosecute any alcohol or drug abuse patient.[facility] HospitalIn the event this information is protected by the Federal Confidentiality of Alcohol and Drug Abuse Patient Records regulations: The Federal rules restrict any use of the information to criminally investigate or prosecute any alcohol or drug abuse patient.[facility] HospitalIn the event this information is protected by the Federal Confidentiality of Alcohol and Drug Abuse Patient Records regulations: The Federal rules restrict any use of the information to criminally investigate or prosecute any alcohol or drug abuse patient.[facility] HospitalIn the event this information is protected by the Federal Confidentiality of Alcohol and Drug Abuse Patient Records regulations: The Federal rules restrict any use of the information to criminally investigate or prosecute any alcohol or drug abuse patient.[facility] HospitalIn the event this information is protected by the Federal Confidentiality of Alcohol and Drug Abuse Patient Records regulations: The Federal rules restrict any use of the information to criminally investigate or prosecute any alcohol or drug abuse patient.[facility] HospitalIn the event this information is protected by the Federal Confidentiality of Alcohol and Drug Abuse Patient Records regulations: The Federal rules restrict any use of the information to criminally investigate or prosecute any alcohol or drug abuse patient.[facility] HospitalIn the event this information is protected by the Federal Confidentiality of Alcohol and Drug Abuse Patient Records regulations: The Federal rules restrict any use of the information to criminally investigate or prosecute any alcohol or drug abuse patient.[facility] HospitalIn the event this information is protected by the Federal Confidentiality of Alcohol and Drug Abuse Patient Records regulations: The Federal rules restrict any use of the information to criminally investigate or prosecute any alcohol or drug abuse patient.[facility] HospitalIn the event this information is protected by the Federal Confidentiality of Alcohol and Drug Abuse Patient Records regulations: The Federal rules restrict any use of the information to criminally investigate or prosecute any alcohol or drug abuse patient.[facility] HospitalIn the event this information is protected by the Federal Confidentiality of Alcohol and Drug Abuse Patient Records regulations: The Federal rules restrict any use of the information to criminally investigate or prosecute any alcohol or drug abuse patient.[facility] Reason for Visit (unrecogniz ed section and content) Reason Comments Physical Therapy Specialty Diagnoses / Procedures Referred By Rayshawn brooks Referred To Contact [facility] Diagnoses Lumbar pain Left hip pain M54.50 (ICD-10-CM) - Lumbar pain M25.552 (ICD-10-CM) - Left hip pain Procedures CONSULT TO PHYSICAL THERAPY PHYSICAL THERAPY EVALUATION HIGH COMPLEX 45 MINS Podlogar, NEPTALI Goldberg.METALLURGICAL ENGINEERING TECHNICIAN [address] [place] [address] [facility] [place] [address] [place] [id number] Referral ID Status Reason Start Date Expiration Date Visits Requested Visits Authorized [id number] Authorized Auto-Generat ed Referral 10/09/2022 10/08/2023 99 99 Reason Comments Physical Therapy PT Progress Note Reason Comments poison tyesha all over x 1 week Reason Comments Rash Pt reported new poss ible poison tyesha rash bilateral thigh area, abd Pain (RT) foot pain rated 6 with mvmt x2 wks Reason Comments Sinus Problem Right side Reason Comments Mouth/Lip Problem Pt reported (LT) jorge luis ed tongue swelling, pain rated 7, x2 wks, denied injury. Reason Comments Results Reason Comments Low Back Pain L sided low back bryce n radiating into L hip and groin x5 days Reason Comments Pain Pain to left lower b ack, left hip and left leg since Sep 24 Reason Comments Orders Reason Comments Patient Question Reason Comments New Patient Evaluation Back Pain Lower Hip Pain Left Groin Left Buttock Pain Left Reason Comments Cough ST, chest congestion , LOAIZA x6 days Reason Comments Patient Update Reason Onset Date Comments Population Health Navigation Outreach 03/31/2023 [employer] Care Gaps Reason Comments Follow Up Low Back Pain No pain when sitting , mostly when standing Reason Comments Chest Pain And left breast pain . Was infrequent but has become constant. Reason Comments Establish Care Specialty Diagnoses / Procedures Referred By Rayshawn brooks Referred To Contact [facility] Diagnoses Spinal stenosis of lumbar region without neurogenic claudication Procedures MRI LUMBAR SPINE WO IVCON MRI SPINAL CANAL LUMBAR W/O CONTRAST MATERIAL Leonard Poe MD [address] [place] [address] [place] [address] Referral ID Status Reason Start Date Expiration Date V isits Requested Visits Authorized [id number] Closed Auto-Generate d Referral 02/02/2023 03/03/2024 1 1 Reason Onset Date Comments Population Health Navigation Outreach 11/14/2023 [employer] care gaps/PCP field update Reason Comments Sinus Problem sinus pressure, drai nage, headache, chills, fatigued, bodyaches x 6 days Reason Comments Sore Throat Hard to swallow, swo llen, right ear pain started this morning Reason Comments Sore Throat EC follow up Reason Comments Results Reason Comments Consult Abnormal thyroid ult rasound. Specialty Diagnoses / Procedures Referred By Rayshawn brooks Referred To Contact General Surgery Diagnoses Nodular thyroid disease Procedures CONSULT TO GENERAL SURGERY OFFICE/OUTPATIENT [facility] 60 MINUTES Perry Bautista MD [address] [place] [address] Referral ID Status Reason Start Date Expiration Date V isits Requested Visits Authorized [id number] Closed PCP Requested Referral 04/24/2024 04/24/2025 1 1 Reason Comments Hives Abdomen, groin, unde r breasts x1 day, hives widespread x1 week Reason Comments Follow Up Reason Comments Follow Up Hives Reason Comments Procedure US guided FNA of rig ht thyroid nodule Reason Comments Thyroid Nodule Reason Comments Results Afirma results Reason Comments Hives Reason Comments 12/07/2023 COLON LODI Reason Comments URI Possible URI, draina ge, runny nose, bloody mucus, fever x 5 days Reason Comments Medication Request Reason Comments Medicare Wellness Exam Reason Onset Date Comments Results 11/28/2024 Reason Comments Cough Cough and congestion x 4 days and diarrhea x 1 week Reason Onset Date Comments Results 12/10/2024 Reason Comments Rash Painful rash X 5 day s Reason Comments Pain shingles Reason Comments Back Pain Right side started a round 12/26 Reason Comments Abdominal Pain R abdomen x3 days, h as had consistent pain x2 months post shingles, pain is different and worsening Reason Comments Pain upper right abdomen on going since 12/20/24 when she had shingles.Was seen in Urgent Care on 02/13/25 and was recommend that she see primary as they had nothing else to offer for her. Reason Comments Radiology NM Specialty Diagnoses / Procedures Referred By Rayshawn t Referred To Contact [facility] Diagnoses Calculus of gallbladder without cholecystitis without obstruction Procedures NM HEPATOBILIARY W EF AND/OR RX HEPATOBIL SYST IMAG INC GB W/PHARMA INTERVENJ Fanta Trammell, PLYWOOD PATCHER.METALLURGICAL ENGINEERING TECHNICIAN [address] [place] [address] Phone: tel: fax: [facility] [address] [place] [address] Phone: tel: Referral ID Status Reason Start Date Expiration Date V isits Requested Visits Authorized [id number] Closed Auto-Generate d Referral 03/05/2025 04/04/2026 1 1 Reason Comments Refill Request Reason Comments Follow Up Discuss results Care Teams (unrecognized sec tion and content) Patient Support Associate Relationship Specialty Start Date End Date Podlogar, Ashlyn, PLYWOOD PATCHER.METALLURGICAL ENGINEERING TECHNICIAN [address] [place], [place] [address] PCP - General Family Practice 11/15/21 Jamaica Thornton Consulting Endocrinology 12/09/15 Patient Support Associate Relationship Specialty Start Date End Date Podlogar, Ashlyn, PLYWOOD PATCHER.METALLURGICAL ENGINEERING TECHNICIAN [address] [place], [place] [id number] PCP - General Family Practice 11/15/21 Jamaica Thornton Consulting Endocrinology 12/09/15 Patient Support Associate Relationship Specialty Start Date End Date Podlogar, Ashlyn, PLYWOOD PATCHER.METALLURGICAL ENGINEERING TECHNICIAN [address] [place] [address] PCP - General Family Medicine 11/15/21 Jamaica Thornton MD Consulting Endocrinology 12/09/15 Patient Support Associate Relationship Specialty Start Date End Date Podlogar, Ashlyn, PLYWOOD PATCHER.METALLURGICAL ENGINEERING TECHNICIAN [address] [facility] [place] [address] PCP - General Family Medicine 11/15/21 Jamaica Thornton MD Consulting Endocrinology 12/09/15 Patient Support Associate Relationship Specialty Start Date End Date Podlogar, Ashlyn, PLYWOOD PATCHER.METALLURGICAL ENGINEERING TECHNICIAN [address] [facility] [address] PCP - General Family Medicine 11/15/21 Jamaica Thornton MD Consulting Endocrinology 12/09/15 Patient Support Associate Relationship Specialty Start Date End Date Podlogar, Ashlyn, PLYWOOD PATCHER.METALLURGICAL ENGINEERING TECHNICIAN [address] [facility] [place] [address] PCP - General Family Medicine 11/15/21 Jamaica Thornton MD Consulting Endocrinology 12/09/15 Patient Support Associate Relationship Specialty Start Date End Date Podlogar, Ashlyn, PLYWOOD PATCHER.METALLURGICAL ENGINEERING TECHNICIAN [address] [facility] [place] [address] PCP - General Family Medicine 11/15/21 Jamaica Thornton MD Consulting Endocrinology 12/09/15 Patient Support Associate Relationship Specialty Start Date End Date Podlogar, Ashlyn, PLYWOOD PATCHER.METALLURGICAL ENGINEERING TECHNICIAN [address] [facility] [place] [address] PCP - General Family Medicine 11/15/21 Jamaica Thornton MD Consulting Endocrinology 12/09/15 Patient Support Associate Relationship Specialty Start Date End Date Podlogar, Ashlyn, PLYWOOD PATCHER.METALLURGICAL ENGINEERING TECHNICIAN [address] [facility] [place] [address] PCP - General Family Medicine 11/15/21 Jamaica Thornton MD Consulting Endocrinology 12/09/15 Patient Support Associate Relationship Specialty Start Date End Date Podlogar, Ashlyn, PLYWOOD PATCHER.METALLURGICAL ENGINEERING TECHNICIAN [address] [facility] [place] [address] PCP - General Family Medicine 11/15/21 Jamaica Thornton MD Consulting Endocrinology 12/09/15 Patient Support Associate Relationship Specialty Start Date End Date Podlogar, Ashlyn, PLYWOOD PATCHER.METALLURGICAL ENGINEERING TECHNICIAN [address] [facility] [place] [address] PCP - General Family Medicine 11/15/21 Jamaica Thornton MD Consulting Endocrinology 12/09/15 Patient Support Associate Relationship Specialty Start Date End Date Podlogar, Ashlyn, PLYWOOD PATCHER.METALLURGICAL ENGINEERING TECHNICIAN [address] [facility] [place] [address] PCP - General Family Medicine 11/15/21 Jamaica Thornton MD Consulting Endocrinology 12/09/15 Patient Support Associate Relationship Specialty Start Date End Date Podlogar, Ashlyn, PLYWOOD PATCHER.METALLURGICAL ENGINEERING TECHNICIAN [address] [facility] [place] [address] PCP - General Family Medicine 11/15/21 Jamaica Thornton MD Consulting Endocrinology 12/09/15 Patient Support Associate Relationship Specialty Start Date End Date Podlogar, Ashlyn, PLYWOOD PATCHER.METALLURGICAL ENGINEERING TECHNICIAN [address] [facility] [place] [address] PCP - General Family Medicine 11/15/21 Jamaica Thornton MD Consulting Endocrinology 12/09/15 Patient Support Associate Relationship Specialty Start Date End Date Podlogar, Ashlyn, PLYWOOD PATCHER.METALLURGICAL ENGINEERING TECHNICIAN [address] [facility] [place] [address] PCP - General Family Medicine 11/15/21 Jamaica Thornton MD Consulting Endocrinology 12/09/15 Patient Support Associate Relationship Specialty Start Date End Date Podlogar, Ashlyn, PLYWOOD PATCHER.METALLURGICAL ENGINEERING TECHNICIAN [address] [facility] [place] [address] PCP - General Family Medicine 11/15/21 Jamaica Thornton MD Consulting Endocrinology 12/09/15 Patient Support Associate Relationship Specialty Start Date End Date Podlogar, Ashlyn, PLYWOOD PATCHER.METALLURGICAL ENGINEERING TECHNICIAN [address] [facility] [place] [address] PCP - General Family Medicine 11/15/21 Jamaica Thornton MD Consulting Endocrinology 12/09/15 Patient Support Associate Relationship Specialty Start Date End Date Podlogar, Ashlyn, PLYWOOD PATCHER.METALLURGICAL ENGINEERING TECHNICIAN [address] [facility] [place] [address] PCP - General Family Medicine 11/15/21 Jamaica Thornton MD Consulting Endocrinology 12/09/15 Patient Support Associate Relationship Specialty Start Date End Date Podlogar, Ashlyn, PLYWOOD PATCHER.METALLURGICAL ENGINEERING TECHNICIAN [address] [facility] [place] [address] PCP - General Family Medicine 11/15/21 Jamaica Thornton MD Consulting Endocrinology 12/09/15 Patient Support Associate Relationship Specialty Start Date End Date Podlogar, Ashlyn, PLYWOOD PATCHER.METALLURGICAL ENGINEERING TECHNICIAN [address] [facility] [place] [address] PCP - General Family Medicine 11/15/21 Jamaica Thornton MD Consulting Endocrinology 12/09/15 Patient Support Associate Relationship Specialty Start Date End Date Podlogar, Ashlyn, PLYWOOD PATCHER.METALLURGICAL ENGINEERING TECHNICIAN [address] [facility] [place] [address] PCP - General Family Medicine 11/15/21 Jamaica Thornton MD Consulting Endocrinology 12/09/15 Patient Support Associate Relationship Specialty Start Date End Date Podlogar, Ashlyn, PLYWOOD PATCHER.METALLURGICAL ENGINEERING TECHNICIAN [address] [facility] [place] [address] PCP - General Family Medicine 11/15/21 Jamaica Thornton MD Consulting Endocrinology 12/09/15 Patient Support Associate Relationship Specialty Start Date End Date Podlogar, Ashlyn, PLYWOOD PATCHER.METALLURGICAL ENGINEERING TECHNICIAN [address] [facility] [place] [address] PCP - General Family Medicine 11/15/21 Jamaica Thornton MD Consulting Endocrinology 12/09/15 Patient Support Associate Relationship Specialty Start Date End Date Perry Bautista MD [address] [facility] [place] [address] PCP - General Family Medicine 07/18/23 Jamaica Thornton MD Consulting Endocrinology 12/09/15 Patient Support Associate Relationship Specialty Start Date End Date Perry Bautista MD [address] [facility] [place] [address] PCP - General Family Medicine 07/18/23 Jamaica Thornton MD Consulting Endocrinology 12/09/15 Patient Support Associate Relationship Specialty Start Date End Date PodlogarAshlyn APRN.METALLURGICAL ENGINEERING TECHNICIAN [address] [facility] [place] [address] PCP - General Family Medicine 11/15/21 07/17/23 Jamaica Thornton MD Consulting Endocrinology 12/09/15 Patient Support Associate Relationship Specialty Start Date End Date PodlogAshlyn luevano APRN.METALLURGICAL ENGINEERING TECHNICIAN [address] [facility] [place] [address] PCP - General Family Medicine 11/15/21 07/17/23 Jamaica Thornton MD Consulting Endocrinology 12/09/15 Patient Support Associate Relationship Specialty Start Date End Date Perry Bautista MD [address] [place], [place] [address]841 PCP - General Family Medicine 07/18/23 Jamaica Thornton MD Consulting Endocrinology 12/09/15 Patient Support Associate Relationship Specialty Start Date End Date Perry Bautista MD [address] [place], [place] 2[address]41 PCP - General Family Medicine 07/18/23 Jamaica Thornton MD Consulting Endocrinology 12/09/15 Patient Support Associate Relationship Specialty Start Date End Date Perry Bautista MD [address] [place], [place] [address]3941 PCP - General Family Medicine 07/18/23 Jamaica Thornton MD Consulting Endocrinology 12/09/15 Patient Support Associate Relationship Specialty Start Date End Date Perry Bautista MD [address] [place], [place] [address]711 PCP - General Family Medicine 07/18/23 Jamaica Thornton MD Consulting Endocrinology 12/09/15 Patient Support Associate Relationship Specialty Start Date End Date Perry Bautista MD [address] [place], [place] [id number] PCP - General Family Medicine 07/18/23 Jamaica Thornton MD Consulting Endocrinology 12/09/15 Patient Support Associate Relationship Specialty Start Date End Date Perry Bautista MD [address] [place] [address] PCP - General Family Medicine 07/18/23 Jamaica Thornton MD Consulting Endocrinology 12/09/15 Patient Support Associate Relationship Specialty Start Date End Date Perry Bautista MD [address] [place], [place] [address] [phone] PCP - General Family Medicine 07/18/23 Jamaica Thornton MD Consulting Endocrinology 12/09/15 Patient Support Associate Relationship Specialty Start Date End Date Perry Bautista MD [address] [place], [place] [id number] PCP - General Family Medicine 07/18/23 Jamaica Thornton MD Consulting Endocrinology 12/09/15 Patient Support Associate Relationship Specialty Start Date End Date Perry Bautista MD [address] [place] [address] PCP - General Family Medicine 07/18/23 Jamaica Thornton MD Consulting Endocrinology 12/09/15 Patient Support Associate Relationship Specialty Start Date End Date Perry Bautista MD [address] [place], [place] 482731 PCP - General Family Medicine 07/18/23 Jamaica Thornton MD Consulting Endocrinology 12/09/15 Patient Support Associate Relationship Specialty Start Date End Date Perry Bautista MD [address] [place], [place] [address]98641 PCP - General Family Medicine 07/18/23 Jamaica Thornton MD Consulting Endocrinology 12/09/15 Patient Support Associate Relationship Specialty Start Date End Date Perry Bautista MD [address] [place], [place] [address]2521 PCP - General Family Medicine 07/18/23 Jamaica Thornton MD Consulting Endocrinology 12/09/15 Patient Support Associate Relationship Specialty Start Date End Date Perry Bautista MD [address] [place], [place] [address] PCP - General Family Medicine 07/18/23 Jamaica Thornton MD Consulting Endocrinology 12/09/15 Patient Support Associate Relationship Specialty Start Date End Date Perry Bautista MD [address] [place] [address] PCP - General Family Medicine 07/18/23 Jamaica Thornton MD Consulting Endocrinology 12/09/15 Patient Support Associate Relationship Specialty Start Date End Date Perry Bautista MD [address] [place] [address] PCP - General Family Medicine 07/18/23 Jamaica Thornton MD Consulting Endocrinology 12/09/15 Patient Support Associate Relationship Specialty Start Date End Date Perry Bautista MD [address] [place], [place] [id number] PCP - General Family Medicine 07/18/23 Jamaica Thornton MD Consulting Endocrinology 12/09/15 Patient Support Associate Relationship Specialty Start Date End Date Perry Bautista MD [address] [place], [place] [address] PCP - General Family Medicine 07/18/23 Jamaica Thornton MD Consulting Endocrinology 12/09/15 Patient Support Associate Relationship Specialty Start Date End Date Ashlyn Keita APRN.CNP [address] [place] [address] PCP - General Family Medicine 11/15/21 07/17/23 Jamaica Thornton MD Consulting Endocrinology 12/09/15 Patient Support Associate Relationship Specialty Start Date End Date Podlogar, Ashlyn, PLYWOOD PATCHER.METALLURGICAL ENGINEERING TECHNICIAN [address] [facility] [address]41 PCP - General Family Medicine 11/15/21 07/17/23 Jamaica Thornton MD Consulting Endocrinology 12/09/15 Patient Support Associate Relationship Specialty Start Date End Date Podlogar, Ashlyn, PLYWOOD PATCHER.METALLURGICAL ENGINEERING TECHNICIAN [address] [place], [place] [address]3431 PCP - General Family Medicine 11/15/21 07/17/23 Jamaica Thornton MD Consulting Endocrinology 12/09/15 Patient Support Associate Relationship Specialty Start Date End Date Podlogar, Ashlyn, PLYWOOD PATCHER.METALLURGICAL ENGINEERING TECHNICIAN [address] [facility] [address] PCP - General Family Medicine 11/15/21 07/17/23 Jamaica Thornton MD Consulting Endocrinology 12/09/15 Patient Support Associate Relationship Specialty Start Date End Date Perry Bautista MD [address] [facility] [place] [address] PCP - General Family Medicine 07/18/23 Jamaica Thornton MD Consulting Endocrinology 12/09/15 Patient Support Associate Relationship Specialty Start Date End Date Perry Bautista MD [address] [place] [address] PCP - General Family Medicine 07/18/23 Jamaica Thornton MD Consulting Endocrinology 12/09/15 Podlogar, Ashlyn, PLYWOOD PATCHER.METALLURGICAL ENGINEERING TECHNICIAN [address] [place] [address] [facility] 09/14/24 Patient Support Associate Relationship Specialty Start Date End Date Perry Bautista MD [address] [place] [address] PCP - General Family Medicine 07/18/23 Jamaica Thornton MD Consulting Endocrinology 12/09/15 Podlogar, Ashlyn, PLYWOOD PATCHER.METALLURGICAL ENGINEERING TECHNICIAN [address] [place] [address] [facility] 09/14/24 Patient Support Associate Relationship Specialty Start Date End Date Perry Bautista MD [address] [facility] [place] [address] PCP - General Family Medicine 07/18/23 Jamaica Thornton MD Consulting Endocrinology 12/09/15 Podlogar, Ashlyn, PLYWOOD PATCHER.METALLURGICAL ENGINEERING TECHNICIAN [address] [facility] [place] [address] [facility] 09/14/24 Patient Support Associate Relationship Specialty Start Date End Date Perry Bautista MD [address] [place] [address] PCP - General Family Medicine 07/18/23 Jamaica Thornton MD Consulting Endocrinology 12/09/15 Podlogar, Ashlyn, PLYWOOD PATCHER.METALLURGICAL ENGINEERING TECHNICIAN [address] [place] [address] [facility] 09/14/24 Patient Support Associate Relationship Specialty Start Date End Date Perry Bautista MD [address] [place] [address] PCP - General Family Medicine 07/18/23 Jamaica Thornton MD Consulting Endocrinology 12/09/15 Podlogar, Ashlyn, PLYWOOD PATCHER.METALLURGICAL ENGINEERING TECHNICIAN [address] [place] [address] [facility] 09/14/24 Patient Support Associate Relationship Specialty Start Date End Date Perry Bautista MD [address] [facility] [place] [address] PCP - General Family Medicine 07/18/23 Jamaica Thornton MD Consulting Endocrinology 12/09/15 Podlogar, Ashlyn, PLYWOOD PATCHER.METALLURGICAL ENGINEERING TECHNICIAN [address] [facility] [place] [address] [facility] 09/14/24 Patient Support Associate Relationship Specialty Start Date End Date Perry Bautista MD [address] [place] [address] PCP - General Family Medicine 07/18/23 Jamaica Thornton MD Consulting Endocrinology 12/09/15 Podlogar, NEPTALI Goldberg.METALLURGICAL ENGINEERING TECHNICIAN [address] [place] [address] [facility] 09/14/24 Patient Support Associate Relationship Specialty Start Date End Date Perry Bautista MD [address] [place] [address] PCP - General Family Medicine 07/18/23 Jamaica Thornton MD Consulting Endocrinology 12/09/15 Podlogar, NEPTALI Goldberg.METALLURGICAL ENGINEERING TECHNICIAN [address] [place] [address] [facility] 09/14/24 Patient Support Associate Relationship Specialty Start Date End Date Perry Bautista MD [address] [place] [address] PCP - General Family Medicine 07/18/23 Jamaica Thornton MD Consulting Endocrinology 12/09/15 Podlogar, NEPTALI Goldberg.METALLURGICAL ENGINEERING TECHNICIAN [address] [facility] [place] [address] [facility] 09/14/24 Patient Support Associate Relationship Specialty Start Date End Date Perry Bautista MD [address] [place] [address] PCP - General Family Medicine 07/18/23 Jamaica Thornton MD Consulting Endocrinology 12/09/15 Podlogar, NEPTALI Goldberg.METALLURGICAL ENGINEERING TECHNICIAN [address] [place] [address] [facility] 09/14/24 Patient Support Associate Relationship Specialty Start Date End Date Perry Bautista MD [address] [place] [address] PCP - General Family Medicine 07/18/23 Jamaica Thornton MD Consulting Endocrinology 12/09/15 Podlogar, NEPTALI Goldberg.METALLURGICAL ENGINEERING TECHNICIAN [address] [place] [address] [facility] 09/14/24 Patient Support Associate Relationship Specialty Start Date End Date Perry Bautista MD [address] [place] [address] PCP - General Family Medicine 07/18/23 Jamaica Thornton MD Consulting Endocrinology 12/09/15 Podlogar, Ashlyn PLYWOOD PATCHER.METALLURGICAL ENGINEERING TECHNICIAN [address] [place] [address] [facility] 09/14/24 Regine Ivey PLYWOOD PATCHER.METALLURGICAL ENGINEERING TECHNICIAN [address] [place] [address] [facility] 12/20/24 Patient Support Associate Relationship Specialty Start Date End Date Perry Bautista MD [address] [facility] [place] [address] PCP - General Family Medicine 07/18/23 Jamaica Thornton MD Consulting Endocrinology 12/09/15 Podlogar, NEPTALI Goldberg.METALLURGICAL ENGINEERING TECHNICIAN [address] [place] [address] [facility] 09/14/24 Regine Ivey PLYWOOD PATCHER.METALLURGICAL ENGINEERING TECHNICIAN [address] [place] [address] [facility] 12/30/24 Patient Support Associate Relationship Specialty Start Date End Date Perry Bautista MD [address] [facility] [place] [address] PCP - General Family Medicine 07/18/23 Jamaica Thornton MD Consulting Endocrinology 12/09/15 PodlogarAshlyn PLYWOOD PATCHER.METALLURGICAL ENGINEERING TECHNICIAN [address] [facility] [place] [address] [facility] 09/14/24 Regine Ivey PLYWOOD PATCHER.METALLURGICAL ENGINEERING TECHNICIAN [address] [place] [address] [facility] Patient Support Associate Relationship Specialty Start Date End Date Perry Bautista MD [address] [place] [address] PCP - General Family Medicine 07/18/23 Jamaica Thornton MD Consulting Endocrinology 12/09/15 Podlogar, Ashlyn PLYWOOD PATCHER.METALLURGICAL ENGINEERING TECHNICIAN [address] [place] [address] [facility]24 Regine Ivey PLYWOOD PATCHER.METALLURGICAL ENGINEERING TECHNICIAN [address] [place] [address] [facility] 12/20/24 12/29/24 Regine Ivey, PLYWOOD PATCHER.METALLURGICAL ENGINEERING TECHNICIAN [address] [place] [address] [facility] 12/30/24 Patient Support Associate Relationship Specialty Start Date End Date Perry Bautista MD [address] [place] [address] PCP - General Family Medicine 07/18/23 Jamaica Thornton MD Consulting Endocrinology 12/09/15 Podlogar, NEPTALI Goldberg.METALLURGICAL ENGINEERING TECHNICIAN [address] [place] [address] [facility] 09/14/24 Regine Ivey PLYWOOD PATCHER.METALLURGICAL ENGINEERING TECHNICIAN [address] [place] [address] [facility] 12/30/24 Patient Support Associate Relationship Specialty Start Date End Date Perry Bautista MD [address] [place], [place] [address] PCP - General Family Medicine 07/18/23 Jamaica Thornton MD Consulting Endocrinology 12/09/15 PodlogarAshlyn APRN.METALLURGICAL ENGINEERING TECHNICIAN [address] [place] [address] [facility] 09/14/24 Regine Ivey APRN.METALLURGICAL ENGINEERING TECHNICIAN [address] [place] [address] [facility] 12/30/24 Patient Support Associate Relationship Specialty Start Date End Date Perry Bautista MD [address] [place] [address] PCP - General Family Medicine 07/18/23 Jamaica Thornton MD Consulting Endocrinology 12/09/15 PodlogarAshlyn APRN.METALLURGICAL ENGINEERING TECHNICIAN [address] [place] [address] [facility] 09/14/24 Regine Ivey APRN.METALLURGICAL ENGINEERING TECHNICIAN [address] [place] [address] [facility] 12/30/24 Patient Support Associate Relationship Specialty Start Date End Date Perry Bautista MD [address] [facility], [place] [address] PCP - General Family Medicine 07/18/23 Jamaica Thornton MD Consulting Endocrinology 12/09/15 Podlogar, Ashlyn, PLYWOOD PATCHER.METALLURGICAL ENGINEERING TECHNICIAN [address] [place] [address] [facility] 09/14/24 Patient Support Associate Relationship Specialty Start Date End Date Perry Bautista MD [address] [place] [address] PCP - General Family Medicine 07/18/23 Jamaica Thornton MD Consulting Endocrinology 12/09/15 PodlogarAshlyn, PLYWOOD PATCHER.METALLURGICAL ENGINEERING TECHNICIAN [address] [place] [address] [facility] 09/14/24 Regine Ivey PLYWOOD PATCHER.METALLURGICAL ENGINEERING TECHNICIAN [address] [place] [address] [facility] 03/20/25 Patient Support Associate Relationship Specialty Start Date End Date Perry Bautista MD [address] [place] [address] PCP - General Family Medicine 07/18/23 Jamaica Thornton MD Consulting Endocrinology 12/09/15 Podlogar, NEPTALI Goldberg.METALLURGICAL ENGINEERING TECHNICIAN [address] [facility] [place] [address] [facility] 09/14/24 Regine Ivey APRN.METALLURGICAL ENGINEERING TECHNICIAN [address] [place] [address] [facility] 03/20/25 Patient Support Associate Relationship Specialty Start Date End Date Perry Bautista MD [address] [place] [address] PCP - General Family Medicine 07/18/23 Jamaica Thornton MD Consulting Endocrinology 12/09/15 Podlogar, NEPTALI Goldberg.METALLURGICAL ENGINEERING TECHNICIAN [address] [facility] [place] [address] [facility] 09/14/24 Regine Ivey APRN.METALLURGICAL ENGINEERING TECHNICIAN [address] [place] [address] [facility] 03/20/25 Patient Support Associate Relationship Specialty Start Date End Date Perry Bautista MD [address] [facility] [place] [address] PCP - General Family Medicine 07/18/23 Jamaica Thornton MD Consulting Endocrinology 12/09/15 Podlogar, NEPTALI Goldberg.METALLURGICAL ENGINEERING TECHNICIAN [address] [facility] [place] [address] [facility] 09/14/24 Regine Ivey PLYWOOD PATCHER.METALLURGICAL ENGINEERING TECHNICIAN [address] [place], [place] [address] [facility] 03/20/25 Patient Support Associate Relationship Specialty Start Date End Date Perry Bautista MD [address] [place], [place] [id number] PCP - General Family Medicine 07/18/23 [place] Thornton MD Consulting Endocrinology 12/09/15 Ashlyn Keita APRN.METALLURGICAL ENGINEERING TECHNICIAN [address] [place], [place] [id number] [facility] 09/14/24 Regine Ivey, NEPTALI.METALLURGICAL ENGINEERING TECHNICIAN [address] [place] [address] [facility] 03/20/25 Goals (unrecognized section and content) Goals may be documented in a n alternate section FOR RECORDS PERTAINING TO PATIENTS WHO ARE OR HAVE BEEN ENROLLED IN A CHEMICAL DEPENDENCY/SUBSTANCEABUSE PROGRAM, SOME INFORMATION MAY BE OMITTED. This clinical summary was aggregated from multiple sources. Caution should be exercised in using it in the provision of clinical care. This summary normalizes information from multiple sources, and as a consequence, information in this document may materially change the coding, format and clinical context of patient data. In addition, data may be omitted in some cases. CLINICAL DECISIONS SHOULD BE BASED ON THE PRIMARY CLINICAL RECORDS. [employer] provides no warranty or guarantee of the accuracy or completeness of information in this document.
[2025-09-18 18:40] LABS: Anion Gap 10 (5-15); BUN 17 mg/dL (4-19); BUN/Creat Ratio 19.8 RATIO (10-20); Calcium,Total 9.8 mg/dL (7.6-11.0); Carbon Dioxide 27.1 mmol/L (21.0-32.0); Chloride 104 mmol/L (98-108); Estimated Creatinine Clearance 57.99 ml/min (50-250); Glucose 101 mg/dL (70-99); Magnesium 2.4 mg/dL (1.5-2.2); Potassium 4.1 mmol/L (3.3-5.1); Troponin T High Sensitivity 10 ng/L (<=14)
[2025-09-18] MEDS: 0.9% Normal Saline (1000mL) 1,000 ML 999 ML IV (19:04)
[2025-09-18] MEDS: 0.9% Normal Saline (1000mL) 1,000 ML 1000 ML IV (20:13)
[2025-09-18 20:16] LABS: FI02 2.0; SITE Not entered; VBG BASE EXCESS 1 mmol/L (-1.0-3.5); VBG PO2 25 mmHg (25-40); VBG SO2 43 % (50-70); VBG TCO2 28 mmol/L (23-33)
[2025-09-18 20:28] LABS: Troponin T High Sens 2 HR 11 ng/L (<=14)
--- NOTE | 2025-09-18 20:39 | PCM.HP.STD ---
HPI - General General Date of Admission: 09/18/25 Date of Service: 09/18/25 Chief Complaint: Chest pain, dyspnea. HPI Narrative The patient is a 74 y/o F w/ PMHx: Possible CKD stage II per GFR trending, MVP with chronic palpitation/tachycardia on metoprolol following with Dr. Quezada cardiology [facility], Known enlarged thyroid with goiter, Anxiety and Depression, GERD who presents to the [facility] ED on 09/18/2025 with history of chest discomfort with notable dyspepsia over the last few days in addition to lightheadedness on day of presentation while at the grocery store prompting her to return home where she tried to lay down and developed onset of left-sided chest discomfort that radiated between her shoulder blades lasting about a minute with associated dyspnea but no nausea, emesis or diaphoresis. In the emergency room on evaluation patient did have discomfort to the right upper quadrant with palpation. She does state that she has episodes of biliary colic. She does state that with pressure to the right upper quadrant her dyspepsia suddenly worsens. She does state that her chest feels better if she is sitting upright of note. She also reports this prior Monday she had some loose stools. Workup in the ED included T97.8, heart rate 95, BP 102/58, respiratory rate 16, 98% on room air however patient did desaturate while in the ED down to 87% on room air and blood pressure did go as low as 73/42, most recent repeat vitals heart rate 87, BP 79/50, respiratory rate 24, CBC with WBC 5.1, Britany 13.2, platelet 190 without marked shift, BMP with BUN/creatinine 17/0.5, GFR 72, glucose 101, magnesium 2.4, troponin 10 with repeat delta 11, TSH 0.680, chest/abdomen/pelvis CTA with no evidence of dissection or aneurysm, thoracic and abdominal aorta are normal in caliber and only mild scattered atherosclerosis noted, cardiomegaly without pericardial effusion, pulmonary arteries patent with no pulmonary embolus, lungs clear with no acute findings, numerous hepatic cysts with additional subcentimeter liver lesions too small to characterize, bilateral renal simple cyst with no hydroureteronephrosis, dense colonic stool burden suspicious for constipation, enlarged heterogeneous thyroid, EKG with sinus rhythm with no acute evidence of ischemia, VBG not marked appearing aside from O2 saturation 43%. Pending NT proBNPII upon request evaluation of patient. In the ED patient ministered 2 L normal saline as well as full-strength aspirin therapy. [facility] Medical History CKD (chronic kidney disease), stage II Chronic tachycardia Goiter Mitral valve prolapse Enlarged thyroid gland Home Medications ?Medication ?Instructions ?Recorded ?Last Taken ?Type cranberry fruit 400 mg capsule 500 mg PO DAILY 10/28/17 Unknown History metoprolol succinate 25 mg 25 mg PO DAILY 05/07/24 Unknown History tablet,extended release 24 hr multivitamin (Daily Multi-Vitamin 1 tab PO DAILY 05/07/24 Unknown History tablet) ascorbic acid (vitamin C) 500 mg 500 mg PO QDAY 09/18/25 Unknown History tablet (C-500) Allergy/AdvReac Type Severity Reaction Status Date / Time doxycycline Allergy Rash Verified 09/18/25 17:14 lidocaine Allergy Anaphylaxis Verified 09/18/25 17:14 brompheniramine AdvReac Unknown PT UNSURE Verified 09/18/25 17:14 OF REACTION amoxicillin (From Augmentin) AdvReac Diarrhea Verified 09/18/25 17:14 bupivacaine AdvReac Angioedema Verified 09/18/25 17:14 carbinoxamine (From Rondec) AdvReac Rash Verified 09/18/25 17:14 clavulanic acid (From AdvReac Diarrhea Verified 09/18/25 17:14 Augmentin) clotrimazole AdvReac Hives Verified 09/18/25 17:14 epinephrine AdvReac Shortness Verified 09/18/25 17:14 of breath erythromycin base (From AdvReac Diarrhea Verified 09/18/25 17:14 E-Mycin) meloxicam AdvReac Diarrhea Verified 09/18/25 17:14 pseudoephedrine (From Rondec) AdvReac Rash Verified 09/18/25 17:14 Family History Mother Heart disease Hypertension Heart failure Father GERD (gastroesophageal reflux disease) Surgical History S/P hysterectomy Social History household members: spouse Smoking Status: Never smoker alcohol intake: never substance use type: does not use ROS ROS Narrative Admission Review of Systems: CONSTITUTIONAL: No weight loss, fever, chills, weakness or fatigue. HEENT: Eyes: No visual loss, blurred vision, double vision or yellow sclerae. Ears, Nose, Throat: No hearing loss, sneezing, congestion, runny nose or sore throat. SKIN: No rash or itching, lesions, wounds. CARDIOVASCULAR: + Chest pain. Chronic history of palpitations/tachycardia. Palpitations, edema, orthopnea, syncopal events. RESPIRATORY: + Dyspnea. No marked cough or sputum, wheezing, hemoptysis. GASTROINTESTINAL: + Chronic biliary colic symptoms, Monday episode isolated loose stools. No anorexia, nausea, vomiting, melena, BRBPR. GENITOURINARY: No dysuria, frequency, urgency or retention. NEUROLOGICAL: No headache, dizziness, syncope, paralysis, ataxia, numbness or tingling in the extremities, focal weakness, change in bowel or bladder control, seizure. MUSCULOSKELETAL: + muscle, back pain, joint pain or stiffness. HEMATOLOGIC: No anemia, bleeding or bruising. LYMPHATICS: No enlarged nodes. No history of splenectomy. PSYCHIATRIC: No history of depression or anxiety. ENDOCRINOLOGIC: No reports of sweating, cold or heat intolerance. No polyuria or polydipsia. ALLERGIES: + History of hives. Vital Signs Vital Signs Vital Signs: 09/18/25 17:11 09/18/25 17:18 09/18/25 17:24 Temperature 97.8 F Temperature Source Oral Pulse Rate 95 87 Respiratory Rate 16 15 Respiratory Effort Normal Short of Breath Blood Pressure 102/58 L Blood Pressure Mean 72 Pulse Ox 98 97 Oxygen Delivery Method Room Air Oxygen Flow Rate (L/min) 09/18/25 17:30 09/18/25 17:30 09/18/25 17:45 Temperature Temperature Source Pulse Rate 84 84 96 Respiratory Rate 17 17 19 H Respiratory Effort Blood Pressure 104/59 L Blood Pressure Mean 69 Pulse Ox 94 94 91 Oxygen Delivery Method Oxygen Flow Rate (L/min) 09/18/25 18:00 09/18/25 18:15 09/18/25 18:42 Temperature Temperature Source Pulse Rate 83 88 Respiratory Rate 21 H 24 H Respiratory Effort Blood Pressure 79/44 L Blood Pressure Mean 55 Pulse Ox 93 90 91 Oxygen Delivery Method Oxygen Flow Rate (L/min) 09/18/25 18:45 09/18/25 18:50 09/18/25 18:50 Temperature Temperature Source Pulse Rate 82 83 Respiratory Rate 20 H 43 H Respiratory Effort Blood Pressure 73/42 L 75/49 L Blood Pressure Mean 51 56 Pulse Ox 87 Oxygen Delivery Method Room Air Oxygen Flow Rate (L/min) 09/18/25 18:52 09/18/25 19:00 09/18/25 19:15 Temperature Temperature Source Pulse Rate 80 76 Respiratory Rate 18 20 H Respiratory Effort Blood Pressure 78/53 L 77/51 L Blood Pressure Mean 62 60 Pulse Ox 95 92 90 Oxygen Delivery Method Nasal Cannula Oxygen Flow Rate (L/min) 2 09/18/25 19:30 09/18/25 19:45 09/18/25 19:55 Temperature Temperature Source Pulse Rate 87 73 Respiratory Rate 24 H 28 H Respiratory Effort Blood Pressure 79/50 L 65/48 L 71/48 L Blood Pressure Mean 59 55 56 Pulse Ox 92 92 90 Oxygen Delivery Method Oxygen Flow Rate (L/min) 09/18/25 20:00 09/18/25 20:15 09/18/25 20:30 Temperature 97.7 F L Temperature Source Oral Pulse Rate 77 80 Respiratory Rate 19 H 22 H Respiratory Effort Blood Pressure 70/42 L 68/47 L 74/51 L Blood Pressure Mean 51 55 59 Pulse Ox 91 94 93 Oxygen Delivery Method Oxygen Flow Rate (L/min) Weight Weight: 162 lb 9.6 oz Body Mass Index (BMI) 27.8 Physical Exam Narrative Physical Examination: General: Awake, alert, oriented x 3 and cooperative, seated upright in ED bed in no apparent distress, fatigued, on supplemental oxygen. Skin: Normal color, normal turgor, no icterus, no cyanosis. HEENT: AT/NC, EOMI, PERRLA, mildly dry MM, no carotid bruits or JVD noted. Lungs: Diminished, greater bases, mildly increased respiratory rate but no distress, currently on supplemental oxygen, no rales, ronchi or wheezing. Heart: Regular rate and rhythm; no gallop, rub audible, + SM. Abdomen: Soft, mild discomfort to right upper quadrant palpation but no rebound or guarding, mildly distended, mildly hypoactive BS, no appreciated marked HSM. Extremities: No cyanosis, no clubbing, no significant distal edema. Neurological: Patient awake, alert, oriented as noted, cognitive function intact; pupils equally reactive to light and accommodation, cranial nerves grossly normal, moving all 4 extremities, no focal deficits, strength moderately globally decreased. Psychiatric: Affect appears flat, fatigued, no acute evidence of depressive or anxiety feelings. Results Lab / Micro Data 09/18/25 17:21 09/18/25 17:21 Labs: Laboratory Results - last 24 hr 09/18/25 17:21: WBC 5.1, RBC 4.46, Hgb 13.2, Hct 41.8, MCV 93.7, MCH 29.6, MCHC 31.6 L, RDW Std Deviation 45.0 H, RDW Coeff of Alexa 13.1, Plt Count 190, MPV 11.6, Immature Gran % (Auto) 0.200, Neut % (Auto) 46.3 L, Lymph % (Auto) 41.4 H, [place] % (Auto) 8.0, Eos % (Auto) 3.7, Baso % (Auto) 0.4, Absolute Neuts (auto) 2.4, Absolute Lymphs (auto) 2.12, Nucleated RBC % 0, Sodium 141, Potassium 4.1, Chloride 104, Carbon Dioxide 27.1, Anion Gap 10, BUN 17, Creatinine 0.85, Estim Creat Clear Calc 57.99, Est GFR (MDRD) Non-Af 72, BUN/Creatinine Ratio 19.8, Glucose 101 H, Calcium 9.8, Magnesium 2.4 H, Troponin T High Sens 10, TSH 0.660 09/18/25 19:20: Troponin T Hi Sens 2 Hr 11 09/18/25 20:05: Lactic Acid 1.3 ABG Data ABG results: ABG 09/18/25 20:13 Specimen Type JHONY Sample Site Not entered O2 % 2.0 VBG pH 7.36 VBG pO2 25 VBG HCO3 26 VBG Total CO2 28 VBG O2 Sat (Calc) 43 L VBG Base Excess 1 POC Mix VBG pCO2 Pt Tmp 46.2 O2 Delivery Device Cannula Imaging Radiology Impression Chest/Abdomen/Pelvis CTA 09/18/25 17:51 IMPRESSION: No evidence of aortic dissection or aneurysm. The thoracic and abdominal aorta are normal in caliber with only mild scattered atherosclerosis. Cardiomegaly without pericardial effusion. Pulmonary arteries are patent with no pulmonary embolus. Clear lungs. Numerous hepatic cysts with additional subcentimeter liver lesions that are too small to characterize. Bilateral renal simple cysts. No hydroureteronephrosis. Dense colonic stool burden suspicious for constipation. Enlarged heterogeneous thyroid. Further characterization with nonemergent ultrasound is recommended. Reading Location: [facility] Assessment & Plan Assessment/Plan (1) Hypotension: (2) Chest pain: (3) Hypoxia: PLAN: Plan The patient is a 74 y/o F w/ PMHx: Possible CKD stage II per GFR trending, MVP with chronic palpitation/tachycardia on metoprolol following with Dr. Quezada cardiology [facility], Known enlarged thyroid with goiter, Anxiety and Depression, GERD who presents to the [facility] ED on 09/18/2025 with history of chest discomfort with notable dyspepsia over the last few days in addition to lightheadedness on day of presentation while at the grocery store prompting her to return home where she tried to lay down and developed onset of left-sided chest discomfort that radiated between her shoulder blades lasting about a minute with associated dyspnea but no nausea, emesis or diaphoresis. #1. Acute hypoxia as well as hypotension with associated presentation of chest pain/dyspnea of unclear significance/diagnosis, possible early developing CAP versus Acute Viral Syndrome versus other alternate infectious source versus multifactorial with potential even adrenal insufficiency: EKG in ED sinus rhythm with no acute evidence of ischemia, chest/abdomen/pelvis CTA with no evidence of dissection or aneurysm, thoracic and abdominal aorta are normal in caliber and only mild scattered atherosclerosis noted, cardiomegaly without pericardial effusion, pulmonary arteries patent with no pulmonary embolus, lungs clear with no acute findings, numerous hepatic cysts with additional subcentimeter liver lesions too small to characterize, bilateral renal simple cyst with no hydroureteronephrosis, dense colonic stool burden suspicious for constipation, enlarged heterogeneous thyroid, initial trop 10 with repeat delta 11. Will admit to the ICU given hypotension, will initiate midodrine and initiate pressor therapy if necessary, place on a monitored bed to assure no acute myocardial infarction with serial cardiac enzymes and EKGs. Echocardiogram requested. Magnesium artery obtained per ED noted to be 2.4. Procalcitonin requested. Will continue hydration with plan repeat chest x-ray a.m. to assure no developing pneumonia, blood culture x 2 requested, will obtain full respiratory viral panel, urinalysis/urine culture requested. Given atypical CP complaint CRP/ESR requested. Additionally, requested gallbladder ultrasound. AM Cortisol additionally requested. If nothing comes of her evaluation as noted may need to consider ACTH stimulation testing. FLP in AM. Maintain on ASA. #2. Chronic Kidney Disease Stage II per current GFR trending: Admission BUN/Cr 17/0.5, GFR 72, baseline renal function unknown thus will continue to trend to further elucidate, repeat BMP in AM. #3. Enlarged thyroid with known goiter: Not on any regimen, noted on imaging, encourage follow-up outpatient as previously arranged with ongoing evaluation of the thyroid, TSH normal 0.66. #4. Chronic tachycardia/palpitations: Holding beta-gurinder therapy given hypotensive presentation, may add back once clinically appropriate. #5. DVT prophylaxis: Lovenox. #6. CODE status: Patient PABLO is her who is present and living will is currently in place. Discussed CODE status at length including difference between FULL code, DNR-CCA and DNR-CC status. Following discussions about the differences in these status, requested Full Code status. Advanced Care Planning Face to Face Time: 16 minutes. Charges/Coding Visit Charges Inpatient E&M: 06583 Init Hosp L3 Procedures Hospitalists Procedures: 85621 Advncd Care Plan 30 Min
--- OUTSIDE RECORDS SUMMARY | 2025-09-18 21:13 | XMS RPT_ITS | CCD ---
Author Organization [facility] Care Team Providers Care Manager Zone Name Role Phone Jamaica Thornton Unavailable Podlogar COLLECTIONS ASSISTANT.Ashlyn POON Primary Care Provider Jamaica Thornton MD Unavailable Perry Bautista MD Primary Care Provider Podlogar COLLECTIONS ASSISTANT.Ashlyn POON Primary Care Provider LEONARD POE Attending [...] Care Unavailable Suhas Davis Attending Unavailable Podlogar COLLECTIONS ASSISTANT.Ashlyn POON Primary Care Provider Podlogar COLLECTIONS ASSISTANT.Ashlyn POON Unavailable [place] COLLECTIONS ASSISTANT.Regine POON Unavailable [place] COLLECTIONS ASSISTANT.Regine POON Unavailable [place] COLLECTIONS ASSISTANT.Regine POON Unavailable [place] COLLECTIONS ASSISTANT.Regine POON Unavailable BETY IGLESIAS Referring Unavailable PERRY [...] Primary Care Unavailab REGINE Sethi Attending Unavailable EPRRY BAUTISTA Primary Care Unavailab WANDA Mcleod Attending [...] / Clavulanate Drug Allergy 06-20-20 05 Diarrhea [facility] Work Phone: Brompheniramine / Pseudoephedrine (1 source) Brompheniramine / Pseudoephedrine Drug Allergy 03-31-20 08 Unknown [facility] Bupivacaine / EPINEPHrine (1 source) Bupivacaine / EPINEPHrine Drug Allergy 07-11-20 23 Shortness of Breath, Angioedema [facility] Doxycycline (1 source) Doxycycline Drug Allergy 02-26-20 15 Rash [facility] Macrolides (antibiotic) (1 source) Erythromycin Drug Allergy 03-31-20 08 [facility] NSAIDs (1 source) meloxicam Drug Allergy 11-17-19 23 GI Upset [facility] Sulfonamides (antibiotic) (1 source) Sulfamethoxazole Drug Allergy 12-14-19 13 GI Upset [facility] (20 sources) Amoxicillin / Clavulanate; Translations: [AMOXICILLIN-POT CLAVULANATE] Drug Allergy 06-20-20 05 Diarrhea [facility] (20 sources) Brompheniramine / Pseudoephedrine; Translations: [BROMPHENIRAMINE-PSE UDOEPHEDRIN] Drug Allergy 03-31-20 08 Unknown [facility] (20 sources) Doxycycline; Translations: [DOXYCYCLINE] Drug Allergy 02-26-20 15 Rash [facility] (20 sources) Erythromycin; Translations: [ERYTHROMYCIN] Drug Allergy 03-31-20 08 Diarrhea [facility] (20 sources) Sulfamethoxazole; Translations: [SULFAMETHOXAZOLE] Drug Allergy 12-14-19 13 GI Upset [facility] Work Phone: (1 source) carbinoxamine Drug Allergy 12-03-19 21 [facility] Work Phone: (4 sources) Lidocaine; Translations: [LIDOCAINE] Drug Allergy 12-03-19 21 Other: See Comments [facility] Work Phone: (1 source) Pseudoephedrine Drug Allergy 12-03-19 21 [facility] Work Phone: (20 sources) meloxicam; Translations: [MELOXICAM SUBMICRONIZED] Drug Allergy 11-17-19 23 GI Upset [facility] (20 sources) Bupivacaine / EPINEPHrine; Translations: [BUPIVACAINE-EPINEPH RINE] Drug Allergy 07-11-20 23 Shortness of Breath, Angioedema [facility] Work Phone: (3 sources) Clotrimazole Drug Allergy 05-04-20 24 Hives [facility] (1 source) Amoxicillin Drug Allergy 05-07-20 24 [facility] (1 source) Brompheniramine Drug Allergy 05-07-20 24 [facility] (1 source) Bupivacaine Drug Allergy 05-07-20 24 [facility] (1 source) carbinoxamine Drug Allergy 05-07-20 [facility] (1 source) Clavulanate Drug Allergy 05-07-20 [facility] (1 source) Clotrimazole Drug Allergy 05-07-20 [facility] (1 source) Doxycycline Drug Allergy 05-07-20 [facility] (1 source) EPINEPHrine Drug Allergy 05-07-20 [facility] (1 source) Erythromycin Drug Allergy 05-07-20 [facility] (1 source) Lidocaine Drug Allergy 05-07-20 [facility] (1 source) meloxicam Drug Allergy 05-07-20 [facility] (1 source) Pseudoephedrine Drug Allergy 05-07-20 [facility] (20 sources) denosumab; Translations: [DENOSUMAB] Drug Allergy 11-12-19 Unknown [facility] (3 sources) Omeprazole; Translations: [OMEPRAZOLE] Drug Allergy 04-29-20 Other: See Comments [facility] (2 sources) Amitriptyline; Translations: [AMITRIPTYLINE] Drug Allergy 05-08-20 Other: See Comments [facility] Work Phone: Medications Current Medications Medication [...] Comment on above: Take 1 capsule by [facility] twice daily for 7 days. celecoxib [...] gone. AZO CRANBERRY (CRANBERRY EXT-C-L. SPOROGENES) 450-30-50 yj-lf-hpwuqtf tab (20 sources) Start: 06-02-2011 End: 07-18-2023 AZO CRANBERRY (CRANBERRY EXT-C-L. SPOROGENES) 450-30-50 ks-ly-vsadauk tab Take by mouth. 0 06/02/2011 07/18/2023 Discontinued (Discontinued by Patient) Start: 06-02-2011 AZO CRANBERRY (CRANBERRY EXT-C-L. SPOROGENES) 450-30-50 xe-yf-nlvdfzr tab Take by mouth. 0 06/02/2011 Active Comment on above: Take by mouth. Cranberry Ext-C-L. Sporogenes (GUBUPHOKV-ATRPXMJVHE-Q ITAMIN C) 450-30-50 ct-tv-ggxfwwv ORAL Tab (2 sources) Start: 06-02-20 11 Cranberry Ext-C-L. Sporogenes (CRANBERRY-PROBIOTICS- VITAMIN C) 450-30-50 ax-yq-wuucmkz ORAL Tab Take by mouth. 0 06/02/2011 [...] on above: Take 2 tablets by mo [facility] once daily. Take 4 tabs daily fo r 3 days, then 2 tabs daily for 3 days, then 1 tab daily for 3 days with food. Take 2 tablets by mo [facility] once daily for 5 days. traMADol hydrochloride [...] Test Name Value Interpretation Reference Range Facility MCFADDINon 07-10-2025 Echocardiography Echocardiography Report: Transthoracic [facility] Date of service: 07/10/2025 10:19:56 AM CENTRE MANAGER Ordering physician: BETY IGLESIAS Exam indication: Routine surveillance of moderate or severe valvular regurgitation (>1yr) Technologist: Bette Hargrove [facility] Interpreting physician: Ilene Devi MD PATIENT: Name: [...] * * * Final * * * Auto I.D. Medical Image : [id number] Normal [facility] CNOVon 04-29-2025 CNOV Office Visit (FAMPWS ) LAURYN BANG ([id number]) 1950 F Date Time Provider Department 04/29/25 9:00 AM [facility] your visit today, we recorded the following information about you: Pulse Blood pressure Weight 64/minute 130/76 70.3 kg Perry Bautista MD 04/29/2025 9:33 AM Signed Chief Complaint Patient presents with: Follow Up: Discuss results Recording using SMATOOS software for draft documentation of the visit was discussed with the patient/authorized promotional representative; all questions welcomed and answered. Patient/authorized promotional representative agreed to proceed HPI Lauryn Bang [...] 05/06/2024 UNSPECIFIED ORAL SURGERY PROCEDURE, BY REPORT [place] teeth extracted UNSPECIFIED ORAL SURGERY PROCEDURE, BY [...] tobacco: Never (more content not included)... Normal [facility] Biliary ducts and Gallbla dder Views for patency of biliary structures and ejection fraction W sincalide and W radionuclide Annette 03-24-2025 IMPRESSION: * Hyperkinetic gallbladder functional response/EF. Clinical correlation is recommended. * Patent CBD. Pond Sawyer: CAMI Transcribe Date/Time: Mar 24 2025 5:35P Dictated by : NICK MIRZA MD This examination was interpreted and the report reviewed and electronically signed by: NICK MIRZA MD on Mar 24 2025 5:35PM [facility] DIVISION OF RADIOLOGY * * *Final Report* * * DATE OF EXAM: Mar 24 2025 2:57PM [address] HEPATOBILIARY W EF AND/OR RX / [...] <80%). DIVISION OF RADIOLOGY Provider, Nayana Awilda [facility] - 03/24/2025 * * *Final Report* * * DATE OF EXAM: Mar 24 2025 2:57PM [facility] [address] [facility] HEPATOBILIARY W EF AND/OR RX / PROCEDURE [...] Clinical correlation is recommended. * Patent CBD. Pond Sawyer: [facility] Transcribe Date/Time: Mar 24 2025 5:35P Dictated by : NICK MIRZA MD This examination was interpreted and the report reviewed and electronically signed by: NICK IMRZA MD on Mar 24 2025 5:35PM [facility] Radiology Study observation (narrative) [facility] Biliary ducts and Gallbla dder Views for patency of biliary structures and ejection fraction W sincalide and W radionuclide IVOrdered By: Ccf Provider on 03-24-2025 [facility] NM HEPATOBILIARY W EF AND/OR RXon 03-24-2025 CT HEPATOBILIARY W EF AND/OR RX * * *Final Report* * * DATE OF EXAM: Mar 24 2025 2:57PM [facility] 002 - CT HEPATOBILIARY W EF AND/OR RX / PROCEDURE [...] Clinical correlation is recommended. * Patent CBD. Pond Sawyer: [facility] Transcribe Date/Time: Mar 24 2025 5:35P Dictated by : NICK MIRZA MD This examination was interpreted and the report reviewed and electronically signed by: NICK MIRZA MD on Mar 24 2025 5:35PM EST [id number] Normal [facility] US ABD RIGHT UPPER QUADRANTo n [...] Cholelithiasis without changes of cholecystitis. No splenomegaly Pond Sawyer: CAMI Transcribe Date/Time: Feb 28 2025 6:49A Dictated by : JAMEY MARKS MD This examination was interpreted and the report reviewed and electronically signed by: JAMEY MARKS MD on Feb 28 2025 6:56AM EST [id number] Normal [facility] US ABD SPLEEN -NBon 02-26-20 US [...] Cholelithiasis without changes of cholecystitis. No splenomegaly Pond Sawyer: PSCB Transcribe Date/Time: Feb 28 2025 6:49A Dictated by : JAMEY MARKS MD This examination was interpreted and the report reviewed and electronically signed by: JAMEY MARKS MD on Feb 28 2025 6:56AM EST [id number] Normal [facility] CNOVon 02-14-2025 CNOV Office Visit (INTMWS ) MIKELLAURYN LEWIS Ana ([id number]) 1950 F Date Time Provider Department 02/14/25 1:40 PM FANTA TRAMMELL INTMWS During your visit today, we recorded the following information about you: Pulse Blood pressure Weight 97/minute 124/72 71 kg Fanta Trammell APRN.WILLOW WORKER 02/14/2025 2:11 PM Signed SUBJECTIVE Lauryn Perez [...] presenting for follow-up after being seen in [facility] yesterday for abdominal pain. Velia reports [...] her daughter's colorectal cancer treatment and her ovnkfa-np-czp's hospitalizations. Her medications were reviewed today and [...] normal. No (more content not included)... Normal [facility] CBC W Auto Differential pane l (Bld)on 02-13-2025 Basophils (Bld) [#/Vol] 0.04 10*3/uL [facility] Basophils/100 WBC (Bld) 0.7 % C [facility] Differential cell count method Nom (Bld) Auto [facility] Eosinophils (Bld) [#/Vol] 0.17 10*3/uL [facility] Eosinophils/100 WBC (Bld) 3.1 % [facility] Erythrocyte distribution width (RBC) [Ratio] 14.4 % 11.5 - 15.0 % [facility] Hematocrit (Bld) [Volume fraction] 42.9 % 36.0 - 46.0 % [facility] Hemoglobin (Bld) [Mass/Vol] 13.9 g/dL 11.5 - 15.5 g/dL [facility] Immature granulocytes (Bld) [#/Vol] [facility] Immature granulocytes/100 WBC (Bld) 0.4 % [facility] Lymphocytes (Bld) [#/Vol] 2.3 10*3/uL [facility] Lymphocytes/100 WBC (Bld) 41.3 % [facility] MCH (RBC) [Entitic mass] 29.8 pg 26.0 - 34.0 pg [facility] MCHC (RBC) [Mass/Vol] 32.4 g/dL 30.5 - 36.0 g/dL [facility] MCV (RBC) [Entitic vol] 91.9 fL 80.0 - 100.0 fL [facility] Monocytes (Bld) [#/Vol] 0.43 10*3/uL [facility] Monocytes/100 WBC (Bld) 7.7 % C [facility] Neutrophils (Bld) [#/Vol] 2.61 10*3/uL [facility] Neutrophils/100 WBC (Bld) 46.8 % [facility] Nucleated RBC (Bld) [#/Vol] [facility] Nucleated RBC/100 WBC (Bld) [Ratio] 0 % /100 WBC [facility] Platelet mean volume (Bld) [Entitic vol] 11.6 fL 9.0 - 12.7 fL [facility] Platelets (Bld) [#/Vol] 197 10*3/uL [facility] RBC (Bld) [#/Vol] 4.67 10*6/uL 3.90 - 5.2 0 m/uL [facility] WBC (Bld) [#/Vol] 5.57 10*3/uL [facility] Basophils (Bld) [#/Vol] 0.04 10*3/uL Normal <0.11 [facility] Comment on above: Order Comment: Speci men Type: BLOOD SPECIMENOrdering Facility: [facility] Address: [address] [place] [address] Performed By: #### 5 7021-8 ####[facility]ITALWIALIA [id number] [place] [address] [place] Basophils/100 WBC (Bld) 0.7 % Normal [facility] Comment on above: Order Comment: Speci men Type: BLOOD SPECIMENOrdering Facility: [facility] Address: [address] [place] [address] Performed By: #### 5 7021-8 ####[facility] [id number] [place] [address] [place] Differential cell count method Nom (Bld) Auto Normal [facility] Comment on above: Order Comment: Speci men Type: BLOOD SPECIMENOrdering Facility: [facility] Address: [address] [place] [address] Performed By: #### 5 7021-8 ####[facility] [id number] [place] [address] [place] Eosinophils (Bld) [#/Vol] 0.17 10*3/uL Normal <0.46 [facility] Comment on above: Order Comment: Speci men Type: BLOOD SPECIMENOrdering Facility: [facility] Address: [address] [place] [address] Performed By: #### 5 7021-8 ####[facility] [id number] [place] [address] [place] Eosinophils/100 WBC (Bld) 3.1 % Normal [facility] Comment on above: Order Comment: Speci men Type: BLOOD SPECIMENOrdering Facility: [facility] Address: [address] [place] [address] Performed By: #### 5 7021-8 ####[facility] MILLCHRISTOPHERWNCLIA [id number] [place] [address] [place] Erythrocyte distribution width (RBC) [Ratio] 14.4 % Normal 11.5-15.0 [facility] Comment on above: Order Comment: Speci men Type: BLOOD SPECIMENOrdering Facility: [facility] Address: [address] [place] [address] Performed By: #### 5 7021-8 ####[facility]STNCL[facility] [id number] [place] [address] [place] Hematocrit (Bld) [Volume fraction] 42.9 % Normal 36.0-46.0 [facility] Comment on above: Order Comment: Speci men Type: BLOOD SPECIMENOrdering Facility: [facility] Address: [address] [place] [address] Performed By: #### 5 7021-8 ####[facility] WESTNCLIA [id number] [place] [address] [place] Hemoglobin (Bld) [Mass/Vol] 13.9 g/dL Normal 11.5-15.5 [facility] Comment on above: Order Comment: Speci men Type: BLOOD SPECIMENOrdering Facility: [facility] Address: [address] [place] [address] Performed By: #### 5 7021-8 ####[facility]ITALWNCLIA [id number] [place] [address] [place] Immature granulocytes (Bld) [#/Vol] 10*3/uL Normal <0.10 [facility] Comment on above: Order Comment: Speci men Type: BLOOD SPECIMENOrdering Facility: [facility] Address: [address] [place] [address] Performed By: #### 5 7021-8 ####[facility] [id number] [place] [address] [place] Immature granulocytes/100 WBC (Bld) 0.4 % Normal [facility] Comment on above: Order Comment: Speci men Type: BLOOD SPECIMENOrdering Facility: [facility] Address: [address] [place] [address] Performed By: #### 5 7021-8 ####[facility] [id number] [place] [address] [place] Lymphocytes (Bld) [#/Vol] 2.30 10*3/uL Normal 1.00-4.00 [facility] Comment on above: Order Comment: Speci men Type: BLOOD SPECIMENOrdering Facility: [facility] Address: [address] [place] [address] Performed By: #### 5 7021-8 ####[facility] [id number] [place] [address] [place] Lymphocytes/100 WBC (Bld) 41.3 % Normal [facility] Comment on above: Order Comment: Speci men Type: BLOOD SPECIMENOrdering Facility: [facility] Address: [address] [place] [address] Performed By: #### 5 7021-8 ####[facility] [id number] [place] [address] [place] MCH (RBC) [Entitic mass] 29.8 pg Normal 26.0-34.0 [facility] Comment on above: Order Comment: Speci men Type: BLOOD SPECIMENOrdering Facility: [facility] Address: [address] [place] [address] Performed By: #### 5 7021-8 ####[facility] [id number] [place] [address] [place] MCHC (RBC) [Mass/Vol] 32.4 g/dL Normal 30.5-36.0 [facility] Comment on above: Order Comment: Speci men Type: BLOOD SPECIMENOrdering Facility: [facility] Address: [address] [place] [address] Performed By: #### 5 7021-8 ####[facility] WESTNCAMELIA [id number] [place] [address] [place] MCV (RBC) [Entitic vol] 91.9 fL Normal 80.0-100.0 C [facility] Comment on above: Order Comment: Speci men Type: BLOOD SPECIMENOrdering Facility: [facility] Address: [address] [place] [address] Performed By: #### 5 7021-8 ####[facility] [id number] [place] [address] [place] Monocytes (Bld) [#/Vol] 0.43 10*3/uL Normal <0.87 [facility] Comment on above: Order Comment: Speci men Type: BLOOD SPECIMENOrdering Facility: [facility] Address: [address] [place] [address] Performed By: #### 5 7021-8 ####[facility] WESTNCLIA [id number] [place] [address] [place] Monocytes/100 WBC (Bld) 7.7 % Normal C [facility] Comment on above: Order Comment: Speci men Type: BLOOD SPECIMENOrdering Facility: [facility] Address: [address] [place] [address] Performed By: #### 5 7021-8 ####[facility] WESTNCL[facility] [id number] [place] [address] [place] Neutrophils (Bld) [#/Vol] 2.61 10*3/uL Normal 1.45-7.50 [facility] Comment on above: Order Comment: Speci men Type: BLOOD SPECIMENOrdering Facility: [facility] Address: [address] [place] [address] Performed By: #### 5 7021-8 ####[facility] MINGOMECHANIC FALLSBUFFYLIA [id number] [place] [address] [place] Neutrophils/100 WBC (Bld) 46.8 % Normal [facility] Comment on above: Order Comment: Speci men Type: BLOOD SPECIMENOrdering Facility: [facility] Address: [address] [place] [address] Performed By: #### 5 7021-8 ####[facility] [id number] [place] [address] [place] Nucleated RBC (Bld) [#/Vol] 10*3/uL Normal <0.01 [facility] Comment on above: Order Comment: Speci men Type: BLOOD SPECIMENOrdering Facility: [facility] Address: [address] [place] [address] Performed By: #### 5 7021-8 ####[facility] [id number] [place] [address] [place] Nucleated RBC/100 WBC (Bld) [Ratio] 0.0 /100 WBC Normal [facility] Comment on above: Order Comment: Speci men Type: BLOOD SPECIMENOrdering Facility: [facility] Address: [address] [place] [address] Performed By: #### 5 7021-8 ####[facility]IA [id number] [place] [address] [place] Platelet mean volume (Bld) [Entitic vol] 11.6 fL Normal 9.0-12.7 [facility] Comment on above: Order Comment: Speci men Type: BLOOD SPECIMENOrdering Facility: [facility] Address: [address] [place] [address] Performed By: #### 5 7021-8 ####[facility] [id number] [place] [address] [place] Platelets (Bld) [#/Vol] 197 10*3/uL Normal 150-400 [facility] Comment on above: Order Comment: Speci men Type: BLOOD SPECIMENOrdering Facility: [facility] Address: [address] [place] [address] Performed By: #### 5 7021-8 ####[facility]STNCL[facility] [id number] [place] [address] [place] RBC (Bld) [#/Vol] 4.67 10*6/uL Normal 3.90-5.20 [facility] Comment on above: Order Comment: Speci men Type: BLOOD SPECIMENOrdering Facility: [facility] Address: [address] [place] [address] Performed By: #### 5 7021-8 ####[facility] WESTNCL[facility] [id number] [place] [address] [place] WBC (Bld) [#/Vol] 5.57 10*3/uL Normal 3.70-11.00 [facility] Comment on above: Order Comment: Speci men Type: BLOOD SPECIMENOrdering Facility: [facility] Address: [address] [place] [address] Performed By: #### 5 7021-8 ####[facility] WESTNCLIA [id number] [place] [address] [place] CNOVon 02-13-2025 CNOV Office Visit (UCWSTR ) LAURYN BANG ([id number]) 1950 F Date Time Provider Department 02/13/25 2:45 PM DINH BARKSDALE UCWSTR During your visit today, we recorded the following information about you: Temperature Pulse Respiration Blood pressure 98.8 degrees 86/minute 18/minute 137/75 Weight 72.1 kg Dinh Barksdale APRN.WILLOW WORKER 02/13/2025 3:29 PM Signed Subjective HPI Nontoxic-appearing [...] 05/06/2024 UNSPECIFIED ORAL SURGERY PROCEDURE, BY REPORT [place] teeth extracted UNSPECIFIED ORAL SURGERY PROCEDURE, BY [...] No stridor. (more content not included)... Normal [facility] metabolic 2000 panelOrdered By: Ashlyn Griffin on 02-13-2025 Albumin [Mass/Vol] 4.3 g/dL 3.9 - 4.9 g/dL [facility] ALP [Catalytic activity/Vol] 86 U/L 34 - 123 U/L [facility] ALT [Catalytic activity/Vol] 21 U/L 7 - 38 U/L [facility] Anion gap [Moles/Vol] 6 mmol/L Low 8 - 15 mmol/L [facility] AST [Catalytic activity/Vol] 23 U/L 13 - 35 U/L [facility] Bilirubin [Mass/Vol] 0.3 mg/dL 0.2 - 1 .3 mg/dL [facility] Calcium [Mass/Vol] 9.9 mg/dL 8.5 - 10. 2 mg/dL [facility] Chloride [Moles/Vol] 101 mmol/L 98 - 10 7 mmol/L [facility] CO2 [Moles/Vol] 30 mmol/L 22 - 30 mmol/L [facility] Creatinine [Mass/Vol] 0.8 mg/dL 0.58 - 0.96 mg/dL [facility] GFR/1.73 sq M.predicted among non-blacks MDRD (S/P/Bld) [Vol rate/Area] 78 mL/min/{1.73_m2} - PINF [facility] Comment on above: Estimated Glomerular Filtration [...] [Mass/Vol] 88 mg/dL 74 - 99 mg/dL [facility] Comment on above: The [place] Diabete s Association (ADA) provides guidance for [...] Standards of Medical Care in Diabetes 2016, [place] Diabetes Association. Diabetes Care. 2016.39(Suppl 1). Interpretation and review of laboratory results Abnormal [facility] Potassium [Moles/Vol] 4.5 mmol/L 3.7 - 5.1 mmol/L [facility] Protein [Mass/Vol] 7.2 g/dL 6.3 - 8.0 g/dL [facility] Sodium [Moles/Vol] 137 mmol/L 136 - 144 mmol/L [facility] Urea nitrogen [Mass/Vol] 16 mg/dL 7 - 21 mg/dL [facility] Comprehensive metabolic 2000 panelon 02-13-2025 Albumin [Mass/Vol] 4.3 g/dL Normal 3.9-4.9 [facility] Comment on above: Order Comment: Lauryn gann Type: BLOOD SPECIMEN Ordering Facility: [facility] Address: [address] [place] [address] Performed By: #### 3 040-3 #### [facility] CLIA [id number] [address] [place] [address] [place] #### 31901-7 #### [facility] CLIA [id number] [address] [place] [address] [place] ALP [Catalytic activity/Vol] 86 U/L Normal 34-123 [facility] Comment on above: Order Comment: Lauryn gann Type: BLOOD SPECIMEN Ordering Facility: [facility] Address: [address] [place] [address] Performed By: #### 3 040-3 #### [facility] CLIA [id number] [address] [place] [address] [place] #### 02554-4 #### [facility] CLIA [id number] [address] [place] [address] [place] ALT [Catalytic activity/Vol] 21 U/L Normal 7-38 [facility] Comment on above: Order Comment: Speci men Type: BLOOD SPECIMEN Ordering Facility: [facility] Address: [address] [place] [address] Performed By: #### 3 040-3 #### [facility] CLIA [id number] [address] [place] [address] [place] #### 20553-6 #### [facility] CLIA [id number] [address] [place] [address] [place] Anion gap [Moles/Vol] 6 mmol/L Low 8-15 [facility] Comment on above: Order Comment: Speci men Type: BLOOD SPECIMEN Ordering Facility: [facility] Address: [address] [place] [address] Performed By: #### 3 040-3 #### [facility] CLIA [id number] [address] [place] [address] [place] #### 41739-0 #### [facility] CLIA [id number] [address] [place] [address] [place] AST [Catalytic activity/Vol] 23 U/L Normal 13-35 [facility] Comment on above: Order Comment: Speci men Type: BLOOD SPECIMEN Ordering Facility: [facility] Address: [address] [place] [address] Performed By: #### 3 040-3 #### [facility] CLIA [id number] [address] [place] [address] [place] #### 35999-3 #### [facility] CLIA [id number] [address] [place] [address] [place] Bilirubin [Mass/Vol] 0.3 mg/dL Normal 0.2-1.3 [facility] Comment on above: Order Comment: Speci men Type: BLOOD SPECIMEN Ordering Facility: [facility] Address: [address] [place] [address] Performed By: #### 3 040-3 #### [facility] CLIA [id number] [address] [place] [address] [place] #### 43319-7 #### [facility] CLIA [id number] [address] [place] [address] [place] Calcium [Mass/Vol] 9.9 mg/dL Normal 8.5-10.2 [facility] Comment on above: Order Comment: Speci men Type: BLOOD SPECIMEN Ordering Facility: [facility] Address: [address] [place] [address] Performed By: #### 3 040-3 #### [facility] CLIA [id number] [address] [place] [address] [place] #### 55726-6 #### [facility] CLIA [id number] [address] [place] [address] [place] Chloride [Moles/Vol] 101 mmol/L Normal 98-107 [facility] Comment on above: Order Comment: Speci men Type: BLOOD SPECIMEN Ordering Facility: [facility] Address: [address] [place] [address] Performed By: #### 3 040-3 #### [facility] CLIA [id number] [address] [place] [address] [place] #### 38591-3 #### [facility] CLIA [id number] [address] [place] [address] [place] CO2 [Moles/Vol] 30 mmol/L Normal 22-30 [facility] Comment on above: Order Comment: Speci men Type: BLOOD SPECIMEN Ordering Facility: [facility] Address: [address] [place] [address] Performed By: #### 3 040-3 #### [facility] CLIA [id number] [address] [place] [address] [place] #### 48638-8 #### [facility] CLIA [id number] [address] [place] [address] [place] Creatinine [Mass/Vol] 0.80 mg/dL Normal 0.58-0.96 [facility] Comment on above: Order Comment: Speci men Type: BLOOD SPECIMEN Ordering Facility: [facility] Address: [address] [place] [address] Performed By: #### 3 040-3 #### [facility] CLIA [id number] [address] [place] [address] [place] #### 09235-3 #### [facility] [id number] [address] [place] [address] [place] Creatinine and Glomerular filtration rate.predicted panel (S/P/Bld) 78 mL/min/1.73m??? Normal >=60 [facility] Comment on above: Order Comment: Speci men Type: BLOOD SPECIMEN Ordering Facility: [facility] Address: [address] [place] [address] Result Comment: Antonina mated Glomerular Filtration Rate [...] GFR. Performed By: #### 3 040-3 #### [facility] CLIA [id number] [address] [place] [address] [place] #### 42446-5 #### [facility] CLIA [id number] [address] [place] [address] [place] Glucose [Mass/Vol] 88 mg/dL Normal 74-99 [facility] Comment on above: Order Comment: Lauryn gann Type: BLOOD SPECIMEN Ordering Facility: [facility] Address: [address] [place] [address] Result Comment: The [place] Diabetes Association (ADA) provides guidance for cutoff [...] Standards of Medical Care in Diabetes 2016, [place] Diabetes Association. Diabetes Care. 2016.39(Suppl 1). Performed By: #### 3 040-3 #### [facility] CLIA [id number] [address] [place] [address] [place] #### 08188-6 #### [facility] CLIA [id number] [address] [place] [address] [place] Potassium [Moles/Vol] 4.5 mmol/L Normal 3.7-5.1 [facility] Comment on above: Order Comment: Lauryn gann Type: BLOOD SPECIMEN Ordering Facility: [facility] Address: [address] [place] [address] Performed By: #### 3 040-3 #### [facility] CLIA [id number] [address] [place] [address] [place] #### 39493-4 #### [facility] CLIA [id number] [address] [place] [address] [place] Protein [Mass/Vol] 7.2 g/dL Normal 6.3-8.0 [facility] Comment on above: Order Comment: Speci men Type: BLOOD SPECIMEN Ordering Facility: [facility] Address: [address] [place] [address] Performed By: #### 3 040-3 #### [facility] CLIA [id number] [address] [place] [address] [place] #### 64413-6 #### [facility] CLIA [id number] [address] [place] [address] [place] Sodium [Moles/Vol] 137 mmol/L Normal 136-144 [facility] Comment on above: Order Comment: Speci men Type: BLOOD SPECIMEN Ordering Facility: [facility] Address: [address] [place] [address] Performed By: #### 3 040-3 #### [facility] CLIA [id number] [address] [place] [address] [place] #### 62109-1 #### [facility] CLIA [id number] [address] [place] [address] [place] Urea nitrogen [Mass/Vol] 16 mg/dL Normal 7-21 [facility] Comment on above: Order Comment: Speci men Type: BLOOD SPECIMEN Ordering Facility: [facility] Address: [address] [place] [address] Performed By: #### 3 040-3 #### [facility] CLIA [id number] [address] [place] [address] [place] #### 85171-6 #### [facility] CLIA [id number] [address] [place] [address] [place] LIPASEon 02-13-2025 Lipase [Catalytic activity/Vol] 22 U/L 16 - 61 U/L [facility] Lipase SerPl-cCncon 02-14-20 Lipase [Catalytic activity/Vol] 22 U/L Normal 16-61 [facility] Comment on above: Order Comment: Speci men Type: BLOOD SPECIMEN Ordering Facility: [facility] Address: [address] [place] [address] Performed By: #### 3 040-3 #### [facility] CLIA [id number] [address] [place] [address] [place] #### 00068-5 #### [facility] CLIA [id number] [address] [place] [address] [place] Lipase [Catalytic activity/V ol]on 02-13-2025 Interpretation and review of laboratory results Normal [facility] CNOVon 01-17-2025 CNOV Office Visit (DERIAN ) LAURYN BANG ([id number]) 1950 F Date Time Provider Department 01/17/25 11:40 AM ASHLYN KEITA During your visit today, we recorded the following information about you: Pulse Respiration Blood pressure Weight 62/minute 18/minute 132/88 71.9 kg Ashlyn Keita APRN.WILLOW WORKER 01/18/2025 8:59 PM Signed 01/17/2025 Patient presents [...] activity was identified. 01/18/2025 by AMMY Mac APRN.WILLOW WORKER Prescription instructions reviewed with patient as applicable. [...] which included preparing to see the patient, [id number] patient care, completing clinical document (more content not included)... Normal [facility] CNOVon 01-06-2025 CNOV Office Visit (INTMWS ) LAURYN BANG ([id number]) 1950 F Date Time Provider Department 01/06/25 2:40 PM WANDA GAN INTMWS During your visit today, we recorded the following information about you: Wanda Gan APRN.CURRICULUM DEVELOPER 01/06/2025 3:30 PM Signed Subjective Patient ID: [...] gabapentin (NEURONTIN) (more content not included)... Normal [facility] CNOVon 12-24-2024 CNOV Office Visit (BEBETOPWS ) LAURYN BANG ([id number]) 1950 F Date Time Provider Department 12/24/24 10:40 AM REGINE IVEY During your visit today, we recorded the following information about you: Pulse Blood pressure Weight 82/minute 126/76 71 kg Regine Ivey, COLLECTIONS ASSISTANT.WILLOW WORKER 12/24/2024 10:59 AM Signed Chief Complaint Patient [...] 05/06/2024 UNSPECIFIED ORAL SURGERY PROCEDURE, BY REPORT [place] teeth extracted UNSPECIFIED ORAL SURGERY PROCEDURE, BY [...] aching CIELO (more content not included)... Normal [facility] CNOVon 12-09-2024 CNOV Office Visit (UCWSTR ) LAURYN BANG ([id number]) 1950 F Date Time Provider Department 12/09/24 4:00 PM DINH BARKSDALE During your visit today, we recorded the following information about you: Temperature Pulse Respiration Blood pressure 99.7 degrees 73/minute 18/minute 136/82 Weight 75.1 kg Dinh Barksdale APRN.WILLOW WORKER 12/09/2024 4:10 PM Signed Subjective HPI Nontoxic-appearing [...] 05/06/2024 UNSPECIFIED ORAL SURGERY PROCEDURE, BY REPORT [place] teeth extracted UNSPECIFIED ORAL SURGERY PROCEDURE, BY [...] There is (more content not included)... Normal [facility] XR CHEST 2V FRONTAL/LATon XR CHEST [...] tissues: Unremarkable. IMPRESSION: No acute radiographic abnormality. Pond Sawyer: [facility] Transcribe Date/Time: Dec 09 2024 3:48P Dictated by : PANFILO LYNN MD This examination was interpreted and the report reviewed and electronically signed by: PANFILO LYNN MD on Dec 09 2024 3:51PM EST [id number] N Normal [facility] XR Chest PA and Lateralon IMPRESSION: No acute radiographic abnormality. Pond Sawyer: [facility] Transcribe Date/Time: Dec 09 2024 3:48P [...] soft tissues: Unremarkable. DIVISION OF RADIOLOGY Provider, [facility] - 12/09/2024 * * *Final Report* [...] Unremarkable. IMPRESSION IMPRESSION: No acute radiographic abnormality. Pond Sawyer: [facility] Transcribe Date/Time: Dec 09 2024 3:48P Dictated by : PANFILO LYNN MD This examination was interpreted and the report reviewed and electronically signed by: PANFILO LYNN MD on Dec 09 2024 3:51PM EST [facility] Radiology Study [facility]narrative) [facility] XR Chest PA and LateralOrder ed By: Ccf Provider on 12-09-2024 [facility] BD DXA - AXIAL SKELETONon BD [...] years, Gender: Female SCANNER INFORMATION: DXA Model: [employer] C [address] Date Scanned: 12/06/2024 8:13 AM CLINICAL HISTORY: [...] FOR MORE INFORMATION ABOUT DIAGNOSIS AND TREATMENT: [facility]:? www.ccf.org/arthritis /osteo National Osteoporosis Foundation:? www.nof.org International Society of Clinical Densitometry www.iscd.org Pond Sawyer: [facility] Transcribe Date/Time: Dec 09 2024 10:59A Dictated by : CESILIA PEREIRA MD This examination was interpreted and the report reviewed and electronically signed by: CESILIA PEREIRA MD on Dec 09 2024 11:01AM EST [id number] N -4.6 Normal [facility] Comprehensive metabolic 2000 panelon 11-27-2024 Albumin [Mass/Vol] 4.3 g/dL Normal 3.9-4.9 [facility] Comment on above: Order Comment: Speci men Type: BLOOD SPECIMEN Ordering Facility: [facility] Address: [address] [place] [address] Performed By: #### 2 4323-8 #### [facility] CLIA [id number] [address] [place] [address] [place] ALP [Catalytic activity/Vol] 87 U/L Normal 34-123 [facility] Comment on above: Order Comment: Speci men Type: BLOOD SPECIMEN Ordering Facility: [facility] Address: [address] [place] [address] Performed By: #### 2 4323-8 #### [facility] CLIA [id number] [address] [place] [address] [place] ALT [Catalytic activity/Vol] 18 U/L Normal 7-38 [facility] Comment on above: Order Comment: Speci men Type: BLOOD SPECIMEN Ordering Facility: [facility] Address: [address] [place] [address] Performed By: #### 2 4323-8 #### [facility] CLIA [id number] [address] [place] [address] [place] Anion gap [Moles/Vol] 7 mmol/L Low 8-15 [facility] Comment on above: Order Comment: Speci men Type: BLOOD SPECIMEN Ordering Facility: [facility] Address: [address] [place] [address] Performed By: #### 2 4323-8 #### [facility] CLIA [id number] [address] [place] [address] [place] AST [Catalytic activity/Vol] 26 U/L Normal 13-35 [facility] Comment on above: Order Comment: Speci men Type: BLOOD SPECIMEN Ordering Facility: [facility] Address: [address] [place] [address] Performed By: #### 2 4323-8 #### [facility] CLIA [id number] [address] [place] [address] [place] Bilirubin [Mass/Vol] 0.4 mg/dL Normal 0.2-1.3 [facility] Comment on above: Order Comment: Speci men Type: BLOOD SPECIMEN Ordering Facility: [facility] Address: [address] [place] [address] Performed By: #### 2 4323-8 #### [facility] CLIA [id number] [address] [place] [address] [place] Calcium [Mass/Vol] 10.3 mg/dL High 8.5-10.2 [facility] Comment on above: Order Comment: Speci men Type: BLOOD SPECIMEN Ordering Facility: [facility] Address: [address] [place] [address] Performed By: #### 2 4323-8 #### [facility] CLIA [id number] [address] [place] [address] [place] Chloride [Moles/Vol] 104 mmol/L Normal 98-107 [facility] Comment on above: Order Comment: Speci men Type: BLOOD SPECIMEN Ordering Facility: [facility] Address: [address] [place] [address] Performed By: #### 2 4323-8 #### [facility] CLIA [id number] [address] [place] [address] [place] CO2 [Moles/Vol] 29 mmol/L Normal 22-30 [facility] Comment on above: Order Comment: Speci men Type: BLOOD SPECIMEN Ordering Facility: [facility] Address: [address] [place] [address] Performed By: #### 2 4323-8 #### [facility] CLIA [id number] [address] [place] [address] [place] Creatinine [Mass/Vol] 0.88 mg/dL Normal 0.58-0.96 [facility] Comment on above: Order Comment: Lauryn men Type: BLOOD SPECIMEN Ordering Facility: [facility] Address: [address] [place] [address] Performed By: #### 2 4323-8 #### [facility] CLIA [id number] [address] [place] [address] [place] Creatinine and Glomerular filtration rate.predicted panel (S/P/Bld) 70 mL/min/1.73m??? Normal >=60 [facility] Comment on above: Order Comment: Lauryn gann Type: BLOOD SPECIMEN Ordering Facility: [facility] Address: [address] [place] [address] Result Comment: Antonina mated Glomerular Filtration Rate [...] GFR. Performed By: #### 2 4323-8 #### [facility] CLIA [id number] [address] [place] [address] [place] Glucose [Mass/Vol] 77 mg/dL Normal 74-99 [facility] Comment on above: Order Comment: Lauryn men Type: BLOOD SPECIMEN Ordering Facility: [facility] Address: [address] [place] [address] Result Comment: The [place] Diabetes Association (ADA) provides guidance for cutoff [...] Standards of Medical Care in Diabetes 2016, [place] Diabetes Association. Diabetes Care. 2016.39(Suppl 1). Performed By: #### 2 4323-8 #### [facility] CLIA [id number] [address] [place] [address] [place] Potassium [Moles/Vol] 4.9 mmol/L Normal 3.7-5.1 [facility] Comment on above: Order Comment: Speci men Type: BLOOD SPECIMEN Ordering Facility: [facility] Address: [address] [place] [address] Performed By: #### 2 4323-8 #### [facility] CLIA [id number] [address] [place] [address] [place] Protein [Mass/Vol] 7.3 g/dL Normal 6.3-8.0 [facility] Comment on above: Order Comment: Speci men Type: BLOOD SPECIMEN Ordering Facility: [facility] Address: [address] [place] [address] Performed By: #### 2 4323-8 #### [facility] CLIA [id number] [address] [place] [address] [place] Sodium [Moles/Vol] 140 mmol/L Normal 136-144 [facility] Comment on above: Order Comment: Speci men Type: BLOOD SPECIMEN Ordering Facility: [facility] Address: [address] [place] [address] Performed By: #### 2 4323-8 #### [facility] CLIA [id number] [address] [place] [address] [place] Urea nitrogen [Mass/Vol] 15 mg/dL Normal 7-21 [facility] Comment on above: Order Comment: Speci men Type: BLOOD SPECIMEN Ordering Facility: [facility] Address: [address] [place] [address] Performed By: #### 2 4323-8 #### [facility] CLIA [id number] [address] [place] [id number] [facility] CNOVon 11-18-2024 CNOV Office Visit (CARDMAXIMILIAN ) LAURYN BANG ([id number]) 1950 F Date Time Provider Department 11/18/24 10:40 AM BETY IGLESIAS During your visit today, we recorded the following information about you: Pulse Respiration Blood pressure Weight 71/minute 12/minute 126/72 72.6 kg Height 1.575 m Bety Iglesias MD 11/18/2024 10:48 AM Signed [facility]AL CARDIOLOGY Cardiology ([place] ) [address] [facility] [id number] OUTPATIENT VISIT DATE 11/18/2024 PRIMARY CARE PHYSICIAN: Ashlyn Keita [address] [place] [address] REFERRING PHYSICIAN: Ashlyn Keita [address] [facility] [address] HISTORY OF PRESENT ILLNESS: Ms. Bang is [...] 05/06/2024 UNSPECIFIED ORAL SURGERY PROCEDURE, BY REPORT [place] teeth extracted UNSPECIFIED ORAL SURGERY PROCEDURE, BY [...] is no (more content not included)... Normal [facility] Mario 11-13-2024 CHAI Telephone (DERIAN) LAURYN BANG ([id number]) 1950 F Date Time Provider Department 11/13/24 [...] Order(s):COMPREHENSIV E METABOLIC PANEL [SQCMP] Order #: [id number] FUTURE Prescriptions as of 11/13/2024 - ascorbic [...] Status:Closed by ADAMARIS GOETZ on 11/13/24 Normal [facility] CBC W Auto Differential pane l (Bld)on 11-12-2024 Basophils (Bld) [#/Vol] 0.03 10*3/uL Normal <0.11 [facility] Comment on above: Order Comment: Speci men Type: BLOOD SPECIMENOrdering Facility: [facility] Address: [address] [place] [address] Performed By: #### 5 7021-8 ####[facility] [id number] [place] [address] [place] Basophils/100 WBC (Bld) 0.5 % Normal [facility] Comment on above: Order Comment: Speci men Type: BLOOD SPECIMENOrdering Facility: [facility] Address: [address] [place] [address] Performed By: #### 5 7021-8 ####[facility] [id number] [place] [address] [place] Differential cell count method Nom (Bld) Auto Normal [facility] Comment on above: Order Comment: Speci men Type: BLOOD SPECIMENOrdering Facility: [facility] Address: [address] [place] [address] Performed By: #### 5 7021-8 ####[facility] [id number] [place] [address] [place] Eosinophils (Bld) [#/Vol] 0.19 10*3/uL Normal <0.46 [facility] Comment on above: Order Comment: Speci men Type: BLOOD SPECIMENOrdering Facility: [facility] Address: [address] [place] [address] Performed By: #### 5 7021-8 ####[facility] [id number] [place] [address] [place] Eosinophils/100 WBC (Bld) 3.5 % Normal [facility] Comment on above: Order Comment: Speci men Type: BLOOD SPECIMENOrdering Facility: [facility] Address: [address] [place] [address] Performed By: #### 5 7021-8 ####[facility] LABIA [id number] [place] [address] [place] Erythrocyte distribution width (RBC) [Ratio] 13.7 % Normal 11.5-15.0 [facility] Comment on above: Order Comment: Speci men Type: BLOOD SPECIMENOrdering Facility: [facility] Address: [address] [place] [address] Performed By: #### 5 7021-8 ####[facility] LABIA [id number] [place] [address] [place] Hematocrit (Bld) [Volume fraction] 45.0 % Normal 36.0-46.0 [facility] Comment on above: Order Comment: Speci men Type: BLOOD SPECIMENOrdering Facility: [facility] Address: [address] [place] [address] Performed By: #### 5 7021-8 ####[facility] LABIA [id number] [place] [address] [place] Hemoglobin (Bld) [Mass/Vol] 14.0 g/dL Normal 11.5-15.5 [facility] Comment on above: Order Comment: Speci men Type: BLOOD SPECIMENOrdering Facility: [facility] Address: [address] [place] [address] Performed By: #### 5 7021-8 ####[facility] LABCLIA [id number] [place] [address] [place] Immature granulocytes (Bld) [#/Vol] 10*3/uL Normal <0.10 [facility] Comment on above: Order Comment: Speci men Type: BLOOD SPECIMENOrdering Facility: [facility] Address: [address] [place] [address] Performed By: #### 5 7021-8 ####[facility] LABCLIA [id number] [place] [address] [place] Immature granulocytes/100 WBC (Bld) 0.2 % Normal [facility] Comment on above: Order Comment: Speci men Type: BLOOD SPECIMENOrdering Facility: [facility] Address: [address] [place] [address] Performed By: #### 5 7021-8 ####[facility] LABCLIA [id number] [place] [address] [place] Lymphocytes (Bld) [#/Vol] 2.30 10*3/uL Normal 1.00-4.00 [facility] Comment on above: Order Comment: Speci men Type: BLOOD SPECIMENOrdering Facility: [facility] Address: [address] [place] [address] Performed By: #### 5 7021-8 ####[facility] LABCLIA [id number] [place] [address] [place] Lymphocytes/100 WBC (Bld) 41.9 % Normal [facility] Comment on above: Order Comment: Speci men Type: BLOOD SPECIMENOrdering Facility: [facility] Address: [address] [place] [address] Performed By: #### 5 7021-8 ####[facility] LABCLIA [id number] [place] [address] [place] MCH (RBC) [Entitic mass] 29.2 pg Normal 26.0-34.0 [facility] Comment on above: Order Comment: Speci men Type: BLOOD SPECIMENOrdering Facility: [facility] Address: [address] [place] [address] Performed By: #### 5 7021-8 ####[facility] LABCLIA [id number] [place] [address] [place] MCHC (RBC) [Mass/Vol] 31.1 g/dL Normal 30.5-36.0 [facility] Comment on above: Order Comment: Speci men Type: BLOOD SPECIMENOrdering Facility: [facility] Address: [address] [place] [address] Performed By: #### 5 7021-8 ####[facility] LABCLIA [id number] [place] [address] [place] MCV (RBC) [Entitic vol] 93.9 fL Normal 80.0-100.0 [facility] Comment on above: Order Comment: Speci men Type: BLOOD SPECIMENOrdering Facility: [facility] Address: [address] [place] [address] Performed By: #### 5 7021-8 ####[facility] LABCLIA [id number] [place] [address] [place] Monocytes (Bld) [#/Vol] 0.36 10*3/uL Normal <0.87 [facility] Comment on above: Order Comment: Speci men Type: BLOOD SPECIMENOrdering Facility: [facility] Address: [address] [place] [address] Performed By: #### 5 7021-8 ####[facility] LABCLIA [id number] [place] [address] [place] Monocytes/100 WBC (Bld) 6.6 % Normal C [facility] Comment on above: Order Comment: Speci men Type: BLOOD SPECIMENOrdering Facility: [facility] Address: [address] [place], [place] [address] Performed By: #### 5 7021-8 ####[facility] LABCLIA [id number] [place] [address] [place] Neutrophils (Bld) [#/Vol] 2.60 10*3/uL Normal 1.45-7.50 [facility] Comment on above: Order Comment: Speci men Type: BLOOD SPECIMENOrdering Facility: [facility] Address: [address] [place] [address] Performed By: #### 5 7021-8 ####[facility] LABCLIA [id number] [place] [address] [place] Neutrophils/100 WBC (Bld) 47.3 % Normal [facility] Comment on above: Order Comment: Speci men Type: BLOOD SPECIMENOrdering Facility: [facility] Address: [address] [place] [address] Performed By: #### 5 7021-8 ####[facility] LABCLIA [id number] [place] [address] [place] Nucleated RBC (Bld) [#/Vol] 10*3/uL Normal <0.01 [facility] Comment on above: Order Comment: Speci men Type: BLOOD SPECIMENOrdering Facility: [facility] Address: [address] [place] [address] Performed By: #### 5 7021-8 ####[facility] LABCLIA [id number] [place] [address] [place] Nucleated RBC/100 WBC (Bld) [Ratio] 0.0 /100 WBC Normal [facility] Comment on above: Order Comment: Speci men Type: BLOOD SPECIMENOrdering Facility: [facility] Address: [address] [place] [address] Performed By: #### 5 7021-8 ####[facility] LABCLIA [id number] [place] [address] [place] Platelet mean volume (Bld) [Entitic vol] 11.9 fL Normal 9.0-12.7 [facility] Comment on above: Order Comment: Speci men Type: BLOOD SPECIMENOrdering Facility: [facility] Address: [address] [place] [address] Performed By: #### 5 7021-8 ####[facility] LABCLIA [id number] [place] [address] [place] Platelets (Bld) [#/Vol] 176 10*3/uL Normal 150-400 [facility] Comment on above: Order Comment: Speci men Type: BLOOD SPECIMENOrdering Facility: [facility] Address: [address] [place] [address] Performed By: #### 5 7021-8 ####[facility] LABIA [id number] [place] [address] [place] RBC (Bld) [#/Vol] 4.79 10*6/uL Normal 3.90-5.20 [facility] Comment on above: Order Comment: Speci men Type: BLOOD SPECIMENOrdering Facility: [facility] Address: [address] [place] [address] Performed By: #### 5 7021-8 ####[facility] LABIA [id number] [place] [address] [place] WBC (Bld) [#/Vol] 5.49 10*3/uL Normal 3.70-11.00 [facility] Comment on above: Order Comment: Speci men Type: BLOOD SPECIMENOrdering Facility: [facility] Address: [address] [place] [address] Performed By: #### 5 7021-8 ####[facility] LABCLIA [id number] [place] [address] [place] CNOVon 11-12-2024 CNOV Office Visit (FAMPWS ) LAURYN BANG ([id number]) 1950 F Date Time Provider Department 11/12/24 [...] resume your usual activities immediately. Ashlyn Keita APRN.WILLOW WORKER 11/12/2024 11:33 AM Signed Lauryn Bang is [...] General (Family Medicine) Ashlyn Keita APRN.CNP as Fsr (Family Medicine) Dr. Iglesias ( cardiology) Sheela [...] as tolerated - DXA-AXIAL SKELETON Ashlyn Keita APRN.WILLOW WORKER Prescription instructions reviewed with patient as applicable. [...] Unknown Commen (more content not included)... Normal [facility] Comprehensive metabolic 2000 panelon 11-12-2024 Albumin [Mass/Vol] 4.3 g/dL Normal 3.9-4.9 [facility] Comment on above: Order Comment: Speci men Type: BLOOD SPECIMENOrdering Facility: [facility] Address: [address] [place] [address] Performed By: #### L IPNF, 72879-7 ####[facility] LABCLIA [id number] [place] [address] [place] ALP [Catalytic activity/Vol] 88 U/L Normal 34-123 [facility] Comment on above: Order Comment: Speci men Type: BLOOD SPECIMENOrdering Facility: [facility] Address: [address] [place] [address] Performed By: #### L IPNF, 80118-6 ####[facility] LABCLIA [id number] [place] [address] [place] ALT [Catalytic activity/Vol] 19 U/L Normal 7-38 [facility] Comment on above: Order Comment: Speci men Type: BLOOD SPECIMENOrdering Facility: [facility] Address: [address] [place] [address] Performed By: #### L IPNF, 62201-0 ####[facility] LABCLIA [id number] [place] [address] [place] Anion gap [Moles/Vol] 9 mmol/L Normal 8-15 [facility] Comment on above: Order Comment: Speci men Type: BLOOD SPECIMENOrdering Facility: [facility] Address: [address] [place] [address] Performed By: #### L IPNF, 06071-1 ####[facility] LABCLIA [id number] [place] [address] [place] AST [Catalytic activity/Vol] 26 U/L Normal 13-35 [facility] Comment on above: Order Comment: Speci men Type: BLOOD SPECIMENOrdering Facility: [facility] Address: [address] [place] [address] Performed By: #### L IPNF, 48356-1 ####[facility] LABCLIA [id number] [place] [address] [place] Bilirubin [Mass/Vol] 0.4 mg/dL Normal 0.2-1.3 [facility] Comment on above: Order Comment: Speci men Type: BLOOD SPECIMENOrdering Facility: [facility] Address: [address] [place] [address] Performed By: #### L IPNF, 45438-7 ####[facility] LABCLIA [id number] [place] [address] [place] Calcium [Mass/Vol] 10.5 mg/dL High 8.5-10.2 [facility] Comment on above: Order Comment: Speci men Type: BLOOD SPECIMENOrdering Facility: [facility] Address: [address] [place] [address] Performed By: #### L IPNF, 38876-5 ####[facility] LABCLIA [id number] [place] [address] [place] Chloride [Moles/Vol] 103 mmol/L Normal 98-107 [facility] Comment on above: Order Comment: Speci men Type: BLOOD SPECIMENOrdering Facility: [facility] Address: [address] [place] [address] Performed By: #### L IPNF, 53495-4 ####[facility] LABCLIA [id number] [place] [address] [place] CO2 [Moles/Vol] 28 mmol/L Normal 22-30 [facility] Comment on above: Order Comment: Speci men Type: BLOOD SPECIMENOrdering Facility: [facility] Address: [address] [place] [address] Performed By: #### L IPNF, 62859-9 ####[facility] LABCLIA [id number] [place] [address] [place] Creatinine [Mass/Vol] 1.00 mg/dL High 0.58-0.96 [facility] Comment on above: Order Comment: Speci men Type: BLOOD SPECIMENOrdering Facility: [facility] Address: [address] [place] [address] Performed By: #### L IPNF, 96492-6 ####[facility] LABCLIA [id number] [place] [address] [place] Creatinine and Glomerular filtration rate.predicted panel (S/P/Bld) 60 mL/min/1.73m??? Normal >=60 [facility] Comment on above: Order Comment: Speci men Type: BLOOD SPECIMENOrdering Facility: [facility] Address: [address] [place] [address] Result Comment: Antonina mated Glomerular Filtration Rate [...] actual GFR. Performed By: #### L IPNF, 09816-5 ####[facility] LABCLIA [id number] [place] [id number] [place] Glucose [Mass/Vol] 83 mg/dL Normal 74-99 [facility] Comment on above: Order Comment: Speci men Type: BLOOD SPECIMENOrdering Facility: [facility] Address: [address] [place] [address] Result Comment: The [place] Diabetes Association (ADA) provides guidance for cutoff [...] Standards of Medical Care in Diabetes 2016, [place] [employer]. Diabetes Care. 2016.39(Suppl 1). Performed By: #### L IPOLAMIDE, 49996-2 ####[facility] LABIA [id number] [place] [address] [place] Potassium [Moles/Vol] 5.3 mmol/L High 3.7-5.1 [facility] Comment on above: Order Comment: Speci men Type: BLOOD SPECIMENOrdering Facility: [facility] Address: [address] [place] [id number] Performed By: #### L IPNF, 47569-1 ####[facility] LABIA [id number] [place] [id number] [place] Protein [Mass/Vol] 7.3 g/dL Normal 6.3-8.0 [facility] Comment on above: Order Comment: Speci men Type: BLOOD SPECIMENOrdering Facility: [facility] Address: [address] [place] [address] Performed By: #### L IPNF, 37471-8 ####[facility] LABCLIA [id number] [address] [address] [place] Sodium [Moles/Vol] 140 mmol/L Normal 136-144 [facility] Comment on above: Order Comment: Speci men Type: BLOOD SPECIMENOrdering Facility: [facility] Address: [address] [place] [address] Performed By: #### L IPNF, 46826-5 ####[facility] LABCLIA [id number] [place] [address] [place] Urea nitrogen [Mass/Vol] 15 mg/dL Normal 7-21 [facility] Comment on above: Order Comment: Speci men Type: BLOOD SPECIMENOrdering Facility: [facility] Address: [address] [place] [address] Performed By: #### L IPNF, 51698-3 ####[facility] LABCLIA [id number] [place] [address] [place] LIPID PANEL, NONFASTINGon Cholesterol [Mass/Vol] 175 mg/dL Normal <200 [facility] Comment on above: Order Comment: Speci men Type: BLOOD SPECIMENOrdering Facility: [facility] Address: [address] [place] [address] Result Comment: <200 mg/dL, Desirable 200-239 mg/dL, Borderline high >239 mg/dL, High Performed By: #### L IPNF, 75408-2 ####[facility] LABCLIA [id number] [place] [address] [place] HDL CHOLESTEROL, NF 54 mg/dL Normal >39 [facility] Comment on above: Order Comment: Speci men Type: BLOOD SPECIMENOrdering Facility: [facility] Address: [address] [place] [address] Result Comment: 40-5 9 mg/dL, Acceptable >59 mg/dL, High: Negative risk factor for coronary heart disease <40 mg/dL, Low: Positive risk factor for coronary heart disease Performed By: #### L IPNF, 77520-9 ####[facility] LABCLIA [id number] [address] [place] LDL CHOLESTEROL, NF 102 mg/dL High <100 [facility] Comment on above: Order Comment: Speci men Type: BLOOD SPECIMENOrdering Facility: [facility] Address: [address] [place] [address] Result Comment: <100 mg/dL, Optimal 100-129 mg/dL, Near optimal/above optimal 130-159 mg/dL, Borderline high 160-189 mg/dL, High >189 mg/dL, Very high Secondary prevention optimal LDL Cholesterol levels are recommended to be < 70 mg/dL Performed By: #### L IPNF, 84220-4 ####[facility] LABCLIA [id number] [address] OF [facility] LDL/HDL RATIO, NF 1.89 mg/dL Normal <2.54 [facility] Comment on above: Order Comment: Swapnili men Type: BLOOD SPECIMENOrdering Facility: [facility] Address: [address] [place] [address] Result Comment: Honorio jamison: 1. National Cholesterol Education Program ATP III Guideline At-A-Glance Quick Desk Reference: National Heart, Lung, and Blood Crane. National Institutes of Health. 2001: NIH Publication No. 01-3305. 2. An International Atherosclerosis Society position paper: global recommendations for the management of dyslipidemia: executive summary, Atherosclerosis. 2014: 232(2):410-413. Performed By: #### L IPNF, 11230-9 ####[facility] LABCLIA [id number] [place] [address] [place] NON HDL CHOL, NF 121 mg/dL Normal <130 [facility] Comment on above: Order Comment: Swapnili men Type: BLOOD SPECIMENOrdering Facility: [facility] Address: [address] [place] [address] Result Comment: <130 mg/dL, Optimal 130-159 mg/dL, Near optimal/above optimal 160-189 mg/dL, Borderline high 190-219 mg/dL, High >219 mg/dL, Very high Secondary prevention optimal non HDL Cholesterol levels are recommended to be <100 mg/dL Performed By: #### L SAIDA, ####[facility] LABCLIA [id number] [address] [place] T CHOL/HDL RATIO NF 3.24 mg/dL Normal <5.10 [facility] Comment on above: Order Comment: Speci men Type: BLOOD SPECIMENOrdering Facility: [facility] Address: [address] [place] [address] Performed By: #### L SAIDA, ####[facility] LABCLIA [id number] [place] [address] [place] [facility] TRIGLYCERIDES, NF 93 mg/dL Normal <150 [facility] Comment on above: Order Comment: Speci men Type: BLOOD SPECIMENOrdering Facility: [facility] Address: [address] [place] [address] Result Comment: <150 mg/dL, Normal 150-199 mg/dL, Borderline high 200-499 mg/dL, High >499 mg/dL, Very high Performed By: #### L SAIDA, ####[facility] LABCLIA [id number] [place] [address] [place] VLDL CHOLESTEROL, NF 19 mg/dL Normal <30 [facility] Comment on above: Order Comment: Speci men Type: BLOOD SPECIMENOrdering Facility: [facility] Address: [address] [place] [address] Performed By: #### L IPOLAMIDE, ####[facility] LABCLIA [id number] [place] [address] [place] CNPMaria Guadalupe 11-11-2024 [facility]N [facility] LAURYN BANG ([id number]) 1950 F Date Time Provider Department 11/11/24 PERRY BAUTISTA During your visit today, we recorded the following information about you: Nori Valenzuela MA 11/11/2024 10:08 AM Signed ----- Message from Perry Bautista MD sent at 11/10/2024 2:14 PM EST ----- Negative mammogram. Repeat in 1 year. Nori Valenzuela MA 11/11/2024 10:09 AM Signed Pt notified of results via [employer]. Nori Valenzuela Ma Allergies As of Date: [...] Date Reviewed: 10/14/2024 Reviewed by: Rojas Kelly, COLLECTIONS ASSISTANT.WILLOW WORKER - Fully Assessed Reason for Visit: Results [...] Status:Closed by NORI VALENZUELA on 11/11/24 Normal [facility] DBT Breast - bilateral scree rissan [...] Abel Ellsworth M.D. Electronically signed on: 11/08/2024 Pond Sawyer: JERALD Transcribe Date/Time: Nov 08 2024 10:47A Dictated by: ABEL ELLSWORTH MD This examination was interpreted and the report reviewed and electronically signed by: ABEL ELLSWORTH MD on Nov 08 2024 12:52PM [facility] DIVISION OF RADIOLOGY * * *Final Report* * * DATE OF EXAM: Nov 08 2024 10:56AM [facility] - TINO SCREENING W GIANLUCA / PROCEDURE REASON: Encounter for screening mammogram for breast cancer * * * * Physician Interpretation * * * * RESULT: [facility] [address] [place] [address] #[id number] - [facility] SCREENING W GIANLUCA HISTORY: 73 year-old patient [...] significant interval changes. DIVISION OF RADIOLOGY Provider, [facility] - 11/08/2024 * * *Final Report* * * DATE OF EXAM: Nov 08 2024 10:56AM [facility] - [facility] SCREENING W GIANLUCA / PROCEDURE REASON: Encounter for screening mammogram for breast cancer * * * * Physician Interpretation * * * * RESULT: [facility] [address] [place] [address] #[id number] - [facility]INO SCREENING W GIANLUCA HISTORY: 73 [...] Abel Ellsworth M.D. Electronically signed on: 11/08/2024 Pond Sawyer: JERALD Transcrielva Date/Time: Nov 08 2024 10:47A Dictated by: ABEL ELLSWORTH MD This examination was interpreted and the report reviewed and electronically signed by: ABEL ELLSWORTH MD on Nov 08 2024 12:52PM [facility] Rad[facility] (narrative) [facility] - bilateral scree ningOrdered By: Ccf Provider on 11-08-2024 [facility] TINO SCREENING W TOMOon 11-08 TINO SCREENING W GIANLUCA * * *Final Report* * * DATE OF EXAM: Nov 08 2024 10:56AM [facility] 0582 - TINO SCREENING W GIANLUCA / PROCEDURE REASON: Encounter for screening mammogram for breast cancer * * * * Physician Interpretation * * * * RESULT: [place] [address] [place] [id number] #[id number] - [facility]INO SCREENING W GIANLUCA HISTORY: 73 [...] Abel Ellsworth M.D. Electronically signed on: 11/08/2024 Pond Sawyer: JERALD Transcribe Date/Time: Nov 08 2024 10:47A Dictated by: ABEL ELLSWORTH MD This examination was interpreted and the report reviewed and electronically signed by: ABEL ELLSWORTH MD on Nov 08 2024 12:52PM EST [id number] Normal [facility] Mario 10-15-2024 CNPN Telephone (FAMPWS) LAURYN BANG ([id number]) 1950 F Date Time Provider Department 10/15/24 [...] Date Reviewed: 10/14/2024 Reviewed by: Rojas Kelly, COLLECTIONS ASSISTANT.WILLOW WORKER - Fully Assessed Reason for Visit: Medication [...] Encounter Status:Closed by ANGIE MICHELLE on 10/15/24 [facility] Prince 10-14-2024 CNOV Office Visit (UCWSTR ) LAURYN BANG ([id number]) 1950 F Date Time Provider Department 10/14/24 4:15 PM ROJAS KELLY [facility] During your visit today, we recorded the following information about you: Temperature Pulse Respiration Blood pressure 99.3 degrees 90/minute 19/minute 100/74 Weight 75.2 kg Rojas Kelly, NEPTALI.WILLOW WORKER 10/14/2024 3:45 PM Signed This note was created using [employer]. Subjective Lauryn Bang is a 73 year [...] treatment of either. Will continue to use [id number] cough and cold medications and follow-up with [...] Date Reviewed: 10/14/2024 Reviewed by: Rojas Kelly APRN.WILLOW WORKER - Fully Assessed Reason for Visit: URI [115] Cmt: Possible URI, drainage, runny nose, bloody mucus, fever x 5 days Primary Visit Diagnosis:Nasal congestion [R09.81] Order(s):COVID AND INFLUENZA A/B AND RSV PCR, ROUTINE [SQCVFLRS] Order #: [id number]. #:[id number] Prescriptions as of 10/14/2024 - metoprolol succinate [...] Status:Closed by ROJAS KELLY on 10/14/24 Normal [facility] COVID AND INFLUENZA A/B AND RSV PCR, ROUTINEon 10-14-2024 SARS-CoV-2 (COVID-19) RNA REA+probe Ql (Unsp spec) SARS-COV-2 (AGENT OF COVID-19) RNA: Not detected INFLUENZA A RNA: Not detected INFLUENZA B RNA: Not detected RESPIRATORY SYNCYTIAL VIRUS (RSV) RNA: Not detected Normal [facility] Comment on above: Performed By: #### C VFLRS ####[facility] LABCLIA [id number] [address] [place] ECHOon 07-19-2024 Echocardiography Echocardiography Report: Transthoracic [facility] Date of service: 07/19/2024 9:29:45 AM CENTRE MANAGER Ordering physician: BETY IGLESIAS Indication: Routine surveillance of moderate or severe valvular regurgitation (>1yr) Symptom(s): Palpitations Technologist: Bette Hargrove [facility] Interpreting physician: Sami Gibson DO PATIENT: Name: [...] * * * Final * * * Auto I.D. Medical Image : [id number] amicsSISUID Normal [facility] Emergency Department Summary on 05-07-2024 Emergency Department Summary [facility] Medical Records Department [address] [place] [address] Emergency Department Summary 05/07/24 MR#: [id number] Acct: [id number] Name: VELIA BANG Rep #: [id number] : 1950 73 From: Suhas Davis MD [...] states she has an appointment with her track machine operator repairer later today. She has taken no Benadryl she states it makes her really sleepy. [facility] Medical History (Updated 05/07/24 @ 03:16 [...] dysphonia. normo (more content not included)... Normal [facility] No Panel Informationon 05-06 [facility] PT D/C Summary (1)on 024 PT D/C Summary (1) [facility] Physical Therapy [facility] [address] [place] [address] / REHABILITATION SERVICES DISCHARGE SUMMARY MR#: [id number] Acct: [id number] Name: VELIA BANG Rep #: [id number] : 1950 73 From: Shanell Henson PT, Cert. MDT Referring Dr.: Dr. Sheela Perez MD Status: RE G R Insurance: [facility] SELF PAY INSURANCE Discharge Summary D/C summary: [...] SHE IS LEAVING FOR A TRIP TO [place] AND SHE IS NOT GOING TO WEAR [...] APPROPRIATE FOR AND AGREEABLE TO DISCHARGE TO [facility] AT THIS TIME. FUNCTIONAL SCREEN: Incontinence [...] please feel free to call me at [phone]. Thank you for the referral of this patient. Sincerely, Shanell Henson PT, Cert MDT Balance/Gait/Function al tests Balance/Special Test Scores Oswestry Low Back Score: 9 Improvement % Improvement: 95 03/29/24 1358 CC: CLARE Goldberg Podlogar; Dr. Sheela Perez MD MARNIE Signed Normal [facility] Inital Evaluation (1) - PTon 01-31-2024 Inital Evaluation (1) - PT [facility] Physical Therapy [facility] [address] [place] [address] [address] [place] [address] / REHABILITATION SERVICES INITIAL EVALUATION MR#: [id number] Acct: [id number] Name: VELIA BANG Rep #: [id number] : 1950 73 From: Shanell Henson PT, Cert. MDT Referring Dr.: Dr. Sheela Perez MD Status: RE G [facility] Insurance: [facility] SELF PAY INSURANCE Patient's Visit Information Visit [...] SEEING 2 UROLOGISTS. PAIN MGMT WITH THE [facility] 2022 AND THAT IS WHEN SHE DID [...] WILL DEMONSTRATE/COMMU (more content not included)... Normal [facility] ANES POSTPROC EVALon 024 ANES POSTPROC EVAL HNO ID: [id number] Author: MAGALIS DE ANDA MD Service: Anesthesiology [...] December 07, 2023 TIME: 10:02 AM CSN: [id number] [facility] ANES PRE-OPon 12-07-2023 ANES PRE-OP HNO ID: [id number] Author: MAGALIS ED ANDA MD Service: Anesthesiology Author Type: Physician [...] and consent discussed: yes. Patient / Responsible Constitution Party agrees to proceed: yes Patient / Surrogate [...] December 07, 2023 TIME: 9:17 AM CSN: [id number] [facility] BRIEF OP NOTon 12-07-2023 BRIEF OP NOT HNO ID: [id number] Author: PRITI BOWSER MD Service: General Surgery Author Type: Physician Type: Brief Op Note Filed: 12/07/2023 09:57 Note Text: BRIEF OPERATIVE NOTE SURGERY DATE: 12/07/2023 Incision/Procedure Start Time: 9:29 cecal intubation time 9:38 Incision Close/Procedure End Time: 9:53 Surgeon(s)/Procedural ist(s) and Dining Services Manager(s): abby Procedures: Screening colonoscopy Anesthesia: MAC Findings: hemorrhoids, diverticulosis Estimated Blood Loss: 0 ml Specimens: None Complications: None Closure Technique: Non-primary Preop Diagnosis: screening for colon cancer, last colonoscopy 2007 Postop Diagnosis: hemorrhoids, diverticulosis SIGNATURE: Priti Bowser MD PATIENT NAME: Lauryn Perez Locher DATE: December 07, 2023 TIME: 9:56 AM Acct: [id number] [facility] HISTORY PHYSICALon HISTORY PHYSICAL HNO ID: [id number] Author: PRITI BOWSER MD Service: General Surgery [...] cyst UNSPECIFIED ORAL SURGERY PROCEDURE, BY REPORT [place] teeth extracted UNSPECIFIED ORAL SURGERY PROCEDURE, BY [...] The patient (more content not included)... Normal [facility] OPERATIVE NOon 12-07-2023 OPERATIVE NO HNO ID: [id number] Author: PRITI BOWSER MD Service: General Surgery Author Type: Physician Type: Operative Report Filed: 12/08/2023 08:04 Note Text: [facility] - Operative Report - [place] LAURYN BANG : 1950 AGE: 72. SEX: F PATIENT TYPE: O HOSP SVC: Surgical [place] [facility] [place] ATTENDING PHYSICIAN: Priti Bowser MD CSN NUMBER: [id number] DATE OF SURGERY/PROCEDURE: 12/07/2023 INCISION/PROCEDURE START TIME: 928 INCISION CLOSE/PROCEDURE END TIME: 952 PREOPERATIVE DIAGNOSIS: Screening for colon cancer. POSTOPERATIVE DIAGNOSIS: Diverticulosis and hemorrhoids. SURGEON: Priti Bowser MD ADOBE FLEX DEVELOPER: No Additional Staff SURGERY/PROCEDURE: Screening colonoscopy. ANESTHESIA: Monitored anesthesia care. LOCATION: [facility]. INDICATIONS: Lauryn Bang is a 72-year-old female, [...] colonoscopy in 10 years. Priti Bowser MD [id number] Normal [facility] NURSING PROGon 11-28-2023 NURSING PROG HNO ID: [id number] Author: KURT MCINTYRE, RN Service: ? Author Type: Registered Nurse Type: Nursing Progress Note Filed: 11/28/2023 10:05 Note Text: Pre-Procedure Checklist Lauryn Bang [phone] (home) 1950 72 year old Body mass [...] Has N/V every time she has anesthesia Destination Imagination Coordinator: Dr Iglesias Saw slat basket maker machine in the last 6 months? Yes Recent EKG/Cardiac Testing: Yes (Has mitral valve prolapse) Chest pain in the last 6 months (<6 months cardiac clearance needed): No History of: Heart Attack/Stroke/Blood Clot?: none Shortness of Breath: No Asthma: No Inhalers: No Any Outstanding Consults?: No If yes, list: Additional Notes: Patient has Mitral Valve Prolapse and sees the slat basket maker machine every 6 months. Recent Covid (10/22/23)...Patient is feeling much better. 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 COVID & INFLUENZA A/B & RSV NAAT, ROUTINEon 11-22-2023 FLUAV RNA REA+probe Ql (Unsp spec) Not detected Not Detected [facility] FLUBV RNA REA+probe Ql (Unsp spec) Not detected Not Detected [facility] RSV A RNA REA+probe Ql (Unsp spec) Not detected Not Detected [facility] SARS-CoV-2 (COVID-19) RNA REA+probe Ql (Resp) Detected Abnormal See comment Zak [facility] XR Chest 2 Viewson [facility] XR Chest PA and Lateralon IMPRESSION: No acute radiographic abnormality. Pond Sawyer: CAMI Transcribe Date/Time: Nov 22 2023 12:19P Dictated by : CESILIA PEREIRA MD This examination was interpreted and the report reviewed and electronically signed by: CESILIA PEREIRA MD on Nov 22 2023 12:19PM [facility] DIVISION OF RADIOLOGY * * *Final [...] the thoracic spine. DIVISION OF RADIOLOGY Provider, [facility] Awilda [facility] - 11/22/2023 * * *Final Report* * [...] spine. IMPRESSION IMPRESSION: No acute radiographic abnormality. Pond Sawyer: PSCB Transcribe Date/Time: Nov 22 2023 12:19P Dictated by : CESILIA PEREIRA MD This examination was interpreted and the report reviewed and electronically signed by: CESILIA PEREIRA MD on Nov 22 2023 12:19PM EST [facility] Radiology Study observation (narrative) [facility] XR Chest PA and LateralOrder ed By: Ccf Provider on 11-22-2023 [facility] XR Chest PA and Lateralon IMPRESSION: Stable and unremarkable exam with no acute radiographic abnormality. Pond Sawyer: PSCB Transcribe Date/Time: Jul 01 2023 9:09A Dictated by : MAIK RATLIFF MD This examination was interpreted and the report reviewed and electronically signed by: MAIK RATLIFF MD on Jul 01 2023 9:09AM [facility] DIVISION OF RADIOLOGY * * *Final [...] soft tissues: Unremarkable. DIVISION OF RADIOLOGY Provider, [facility] - 07/01/2023 * * *Final Report* [...] unremarkable exam with no acute radiographic abnormality. Pond Sawyer: CAMI Transcribe Date/Time: Jul 01 2023 9:09A Dictated by : MAIK RATLIFF MD This examination was interpreted and the report reviewed and electronically signed by: MAIK RATLIFF MD on Jul 01 2023 9:09AM EST [facility] XR Chest PA and LateralOrder ed By: Ccf Provider on 07-01-2023 [facility] CBC W Auto Differential pane l (Bld)on 06-30-2023 Basophils (Bld) [#/Vol] <0.11 k/uL C [facility] Basophils/100 WBC (Bld) 0.4 % C [facility] Differential cell count method Nom (Bld) Auto [facility] Eosinophils (Bld) [#/Vol] 0.10 10*3/uL <0.46 k/uL [facility] Eosinophils/100 WBC (Bld) 1.9 % [facility] Erythrocyte distribution width (RBC) [Ratio] 13.7 % 11.5 - 15.0 % [facility] Hematocrit (Bld) [Volume fraction] 43.8 % 36.0 - 46.0 % [facility] Hemoglobin (Bld) [Mass/Vol] 14.0 g/dL 11.5 - 15.5 g/dL [facility] Immature granulocytes (Bld) [#/Vol] <0.10 k/uL [facility] Immature granulocytes/100 WBC (Bld) 0.2 % [facility] Lymphocytes (Bld) [#/Vol] 1.59 10*3/uL 1.00 - 4.00 k/uL [facility] Lymphocytes/100 WBC (Bld) 30.7 % [facility] MCH (RBC) [Entitic mass] 30.1 pg 26.0 - 34.0 pg [facility] MCHC (RBC) [Mass/Vol] 32.0 g/dL 30.5 - 36.0 g/dL [facility] MCV (RBC) [Entitic vol] 94.2 fL 80.0 - 100.0 fL [facility] Monocytes (Bld) [#/Vol] 0.45 10*3/uL <0.87 k/uL [facility] Monocytes/100 WBC (Bld) 8.7 % C [facility] Neutrophils (Bld) [#/Vol] 3.01 10*3/uL 1.45 - 7.50 k/uL [facility] Neutrophils/100 WBC (Bld) 58.1 % [facility] Nucleated RBC (Bld) [#/Vol] <0.01 k/uL [facility] Nucleated RBC/100 WBC (Bld) [Ratio] 0.0 /100 WBC [facility] Platelet mean volume (Bld) [Entitic vol] 12.3 fL 9.0 - 12.7 fL [facility] Platelets (Bld) [#/Vol] 174 10*3/uL 150 - 400 k/uL [facility] RBC (Bld) [#/Vol] 4.65 10*6/uL 3.90 - 5.2 0 m/uL [facility] WBC (Bld) [#/Vol] 5.18 10*3/uL 3.70 - 11. 00 k/uL [facility] XR Chest PA and Lateralon Radiology Study observation (narrative) [facility] CNOVon 04-20-2023 CNOV Office Visit (SPAGWO ) LAURYN BANG ([id number]) 1950 F Date Time Provider Department 04/20/23 1:45 PM LEONARD POE During your visit today, we recorded the following information about you: Pulse Respiration 83/minute 16/minute Leonard Poe MD 04/20/2023 2:10 PM Signed [facility] Name: Lauryn Bang : 1950 Purpose: [...] No She was sitting on a wooden taoist pew for about 90 minutes, had sudden onset of low back pain after she started walking around. Pain worsened over several days. Seen in [facility] on 09/26. She was given Prednisone [...] but caused GI Upset Opioids: Vicodin or Grand Cane (Hydrocodone) Muscle Relaxants: Flexeril (Cyclobenzaprine) - no [...] IVCON Ex (more content not included)... Normal [facility] Mario 04-20-2023 [facility] Telephone (SPAGWO) LAURYN BANG ([id number]) 1950 F Date Time Provider Department 04/20/23 [...] if possible) has been submitted via the [facility] Internal Referral Request form on the [facility] Appointment Portal. Confirmation # [id number] Sriboyd Ledezmaard Allergies As of Date: 04/20/2023 [...] - AZO CRANBERRY (CRANBERRY EXT-C-L. SPOROGENES) 450-30-50 zk-kq-erzcdqu tab Take by mouth. - multivitamin ORAL [...] Encounter Status:Closed by SRI PASTOR on 04/20/23 [facility] MRI LUMBAR SPINE WO IVCONon 03-02-2023 [facility] CNOVon 02-02-2023 CNOV Office Visit (SPAGWO ) LAURYN BANG ([id number]) 1950 F Date Time Provider Department 02/02/23 1:15 PM LEONARD POE During your visit today, we recorded the following information about you: Pulse Respiration 84/minute 16/minute Leonard Poe MD 02/02/2023 1:41 PM Signed [facility] General Name: Lauryn Bang : 1950 [...] No She was sitting on a wooden taoist pew for about 90 minutes, had sudden onset of low back pain after she started walking around. Pain worsened over several days. Seen in [facility] on 09/26. She was given Prednisone [...] but caused GI Upset Opioids: Vicodin or [place] (Hydrocodone) Muscle Relaxants: Flexeril (Cyclobenzaprine) - no [...] lower facet (more content not included)... Normal [facility] Influenza virus A and B RNA and SARS-CoV-2 (COVID-19) N gene panel REA+probe (Resp)on 01-21-2023 FLUAV RNA REA+probe Ql (Unsp spec) Not detected Not Detected [facility] FLUBV RNA REA+probe Ql (Unsp spec) Not detected Not Detected [facility] SARS-CoV-2 (COVID-19) RNA REA+probe Ql (Resp) Not detected See comment [facility] XR CHEST 2V FRONTAL/LATon [facility] XR Chest PA and Lateralon IMPRESSION: No acute radiographic abnormality. Pond Sawyer: [employer] Transcribe Date/Time: Jan 20 2023 12:18P Dictated by : PRESLEY BLAKELY MD This examination was interpreted and the report reviewed and electronically signed by: PRESLEY BLAKELY MD on Jan 20 2023 12:20PM [facility] DIVISION OF RADIOLOGY * * *Final [...] mild degenerative changes. DIVISION OF RADIOLOGY Provider, [facility] - 01/20/2023 * * *Final Report* [...] changes. IMPRESSION IMPRESSION: No acute radiographic abnormality. Pond Sawyer: CAMI Transcribe Date/Time: Jan 20 2023 12:18P Dictated by : PRESLEY BLAKELY MD This examination was interpreted and the report reviewed and electronically signed by: PRESLEY BLAKELY MD on Jan 20 2023 12:20PM EST [facility] Radiology Study observation (narrative) [facility] XR Chest PA and LateralOrder ed By: Ccf Provider on 01-20-2023 [facility] No Panel Informationon 10-18 IMPRESSION: 1. Left hip grossly unremarkable. 2. Degenerative changes lower lumbar spine with low-grade spondylolisthesis of L4 and L5. Pond Sawyer: [facility] Transcribe Date/Time: Oct 18 2022 7:35A Dictated by : NEVA BUTLER MD This examination was interpreted and the report reviewed and electronically signed by: NEVA BUTLER MD on Oct 18 2022 7:37AM [facility] DIVISION OF RADIOLOGY No Panel InformationOrdered By: Ccf Provider on 10-18-2022 [facility] XR Lumbar spine 3 Viewson * [...] XR LUMBAR 3V AP/LAT/L5-S1 Laterality: LEFT (accession [id number]), NOT APPLICABLE (accession [id number]) Number of different views (projections): 3 views [...] lower facet joints. DIVISION OF RADIOLOGY Provider, [facility] Awilda [facility] - 10/18/2022 * * *Final Report* * [...] XR LUMBAR 3V AP/LAT/L5-S1 Laterality: LEFT (accession [id number]), NOT APPLICABLE (accession [id number]) Number of different views (projections): 3 views [...] with low-grade spondylolisthesis of L4 and L5. Pond Sawyer: PSCB Transcribe Date/Time: Oct 18 2022 7:35A Dictated by : NEVA BUTLER MD This examination was interpreted and the report reviewed and electronically signed by: NEVA BUTLER MD on Oct 18 2022 7:37AM [facility] XR Pelvis and Hip - left AP [...] XR LUMBAR 3V AP/LAT/L5-S1 Laterality: LEFT (accession [id number]), NOT APPLICABLE (accession [id number]) Number of different views (projections): 3 views [...] lower facet joints. DIVISION OF RADIOLOGY Provider, [facility] - 10/18/2022 * * *Final Report* [...] XR LUMBAR 3V AP/LAT/L5-S1 Laterality: LEFT (accession [id number]), NOT APPLICABLE (accession [id number]) Number of different views (projections): 3 views [...] with low-grade spondylolisthesis of L4 and L5. Pond Sawyer: PSCB Transcribe Date/Time: Oct 18 2022 7:35A Dictated by : NEVA BUTLER MD This examination was interpreted and the report reviewed and electronically signed by: NEVA BUTLER MD on Oct 18 2022 7:37AM EST [facility] No Panel Informationon 10-17 Radiology Study observation (narrative) Zak faustin [facility] TINO SCREENING W TOMOon 08-18 [facility] XR FOOT GENERAL 3V AP/LAT/OB L RIGHTon 03-29-2022 [facility] XR Foot - right AP and Later al and obliqueon 03-29-2022 IMPRESSION: No radiographic evidence of acute osseous injury Pond Sawyer: [facility] Transcribe Date/Time: Mar 29 2022 2:49P [...] [id number] E_DIVISION OF RADIOLOGY Provider, [facility] - 03/29/2022 * * *Final Report* * [...] No radiographic evidence of acute osseous injury Pond Sawyer: [facility] Transcribe Date/Time: Mar 29 2022 2:49P Dictated by : CESILIA PEREIRA MD This examination was interpreted and the report reviewed and electronically signed by: CESILIA PEREIRA MD on Mar 29 2022 2:52PM EST [facility] Radiology Study observation (narrative) [facility] XR Foot - right AP and Later al and obliqueOrdered By: Ccf Provider on 03-29-2022 [facility] ANES Angy 03-20-2019 ANES POST HNO ID: [id number] Author: Julia Villarreal Service: Anesthesiology Author Type: [...] 20, 2019 TIME: 4:17 PM PAGER/CONTACT #: [phone] [facility] ANES PREOPon 03-20-2019 ANES PREOP HNO ID: [id number] Author: Sacha Garcia Service: ? Author Type: [...] POLYP SNARE 06/04/08 - ORAL SURGERY PROCEDURE [place] teeth extracted - ORAL SURGERY PROCEDURE 12/2016 [...] Cranberry Ext-C-L. Sporogenes (CRANBERRY-PROBIOTICS -VITAMIN C) 450-30-50 ur-lv-arabiye ORAL Tab Take by mouth. multivitamin ORAL [...] March 20, 2019 TIME: 12:51 PM CSN: [id number] [facility] PLAN OF CAREon 03-20-2019 PLAN OF CARE HNO ID: [id number] Author: Gisselle Mckeon (Spare Hand) Service: Pharmacy Author Type: ? Type: Plan of Care Filed: 03/20/2019 3:56 PM Note Text: DYE WEIGHER BEDSIDE DELIVERY SURVEY 1. Patient to use [facility] Bedside Delivery - YES Insurance Information as follows: 2. Insurance card on file - YES 3. Credit card for payment - YES PHARMACY BEDSIDE DELIVERY SERVICE Patient Name: Lauryn Bang The marked outpatient medications were Filled at: [facility] and delivered to the patient's bedside to [...] term use only Cranberry Ext-C-L. Sporogenes 450-30-50 kl-rp-qjgqgxm Tab estradiol 0.01 % (0.1 mg/gram) vaginal [...] or your Primary Care Provider. Gisselle Mckeon (Spare Hand) PAGER: [phone] March 20, 2019 3:56 PM [facility] PT EDon 03-20-2019 PT ED HNO ID: [id number] Author: Sangeeta aGlvan RN Service: ? Author Type: Registered Nurse [...] Signed By: Sangeeta Galvan RN In Department: [facility] SURGERY [facility] PT ED HNO ID: [id number] Author: Nancy Aguayo RN Service: ? Author [...] Signed By: Nancy Aguayo RN In Department: [facility] SURGERY [facility] NURSING PROGon 03-11-2019 Protein mass conc HNO ID: [id number] Author: Charu Mclean) GUTIERREZ Tapia Service: ? [...] Tapia RN March 11, 2019 2:13 PM [facility] HOSPon 02-27-2019 HOSP Patient:Lauryn Bang MRN: Height:5' 4(1.626 m) Weight:161 lb (73.029 kg) Outpatient Medications as of 03/20/19: meloxicam (MOBIC) 15 mg tablet clobetasol 0.05 % cream estradiol 0.01 % (0.1 mg/g) vaginal cream Cranberry Ext-C-L. Sporogenes (CRANBERRY-PROBIOTICS -VITAMIN C) 450-30-50 it-kd-vpjggfy ORAL Tab multivitamin ORAL tablet Admission/Clinic Administered [...] for the following basenames: K,HCT Progress Notes ([facility]): Lorri Chang Ma 02/27/2019 10:32 AM Signed Please schedule patient for excision of left thumb ganglion cyst on 03/20/2019 under MAC anesthesia. Please schedule post op appointments in [place]. Edith Briones [facility] 02/27/2019 2:49 PM Signed Surgical request and post ops completed. Lorri Chang Ma 02/27/2019 4:19 PM Signed Patient has been scheduled as requested. Progress Notes ([facility]): Lorri Chang Ma 02/27/2019 11:29 AM Signed [...] PA-C Department of Orthopaedics Orthopaedics [address] [facility] [address] Dept: [phone] Dept February 27, 2019 CHIEF COMPLAINT: Established [...] an anti-inflammatory or icing. 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 [...] or joint space abnormality. Positive ulnar variance. Pond Sawyer: CAMI ? Transcribe Date/Time: Jan 29 2019 [...] POLYP SNARE 06/04/08 - ORAL SURGERY PROCEDURE [place] teeth extracted - ORAL SURGERY PROCEDURE 12/2016 [...] Cranberry Ext-C-L. Sporogenes (CRANBERRY-PROBIOTICS -VITAMIN C) 450-30-50 ib-qi-bmsrief ORAL Tab Take by mouth. multivitamin ORAL [...] or electronic medical record. Nuris Enriquez PA-C [address] [facility] [address] Júnior Raygoza MD [address] [facility] [address] This note was partially generated using [employer] voice recognition system, and there may be some incorrect words, spellings, and punctuation that were not noted in checking the note before saving. Gissel Covarrubias PA-C Normal [facility] Culture, urine Bacteria identified Cx Nom (U) Positive [facility] Work Phone: Vital Signs Date Time Vital Sign Value Performing Clinician Faci lity 04-29-2025 08:51-0400 Body mass index (BMI) [Ratio] 28.35 kg/m2 Perry Bautista MD Work Phone: [facility] 04-29-2025 08:51-0400 Body weight 70.31 kg Perry Bautista MD Work Phone: [facility] 04-29-2025 08:51-0400 Diastolic blood pressure 76 mm[Hg] Perry Bautista MD Work Phone: [facility] 04-29-2025 08:51-0400 Heart rate 64 /min Perry Bautista MD Work Phone: [facility] 04-29-2025 08:51-0400 Systolic blood pressure 130 mm[Hg] Perry Bautista MD Work Phone: [facility] 02-14-2025 13:43-0400 Diastolic blood pressure 72 mm[Hg] Fanta Berenice COLLECTIONS ASSISTANT.WILLOW WORKER Work Phone: [facility] 02-14-2025 13:43-0400 Systolic blood pressure 124 mm[Hg] Fanta Berenice COLLECTIONS ASSISTANT.WILLOW WORKER Work Phone: [facility] 02-14-2025 13:41-0400 Body mass index (BMI) [Ratio] 28.63 kg/m2 Fanta Berenice COLLECTIONS ASSISTANT.WILLOW WORKER Work Phone: [facility] 02-14-2025 13:41-0400 Body weight 71 kg Fanta Berenice COLLECTIONS ASSISTANT.WILLOW WORKER Work Phone: [facility] 02-14-2025 13:41-0400 Heart rate 97 /min Fanta Berenice COLLECTIONS ASSISTANT.WILLOW WORKER Work Phone: [facility] 02-14-2025 13:41-0400 SaO2% (BldA) [Mass fraction] 96 % Fanta Trammell COLLECTIONS ASSISTANT.WILLOW WORKER Work Phone: [facility] 02-13-2025 14:51-0400 Body mass index (BMI) [Ratio] 29.07 kg/m2 Dinh Barksdale COLLECTIONS ASSISTANT.WILLOW WORKER Work Phone: [facility] 02-13-2025 14:51-0400 Body temperature 98.8 [degF] Dinh Barksdale COLLECTIONS ASSISTANT.WILLOW WORKER Work Phone: [facility] 02-13-2025 14:51-0400 Body weight 72.1 kg Dinh Barksdale COLLECTIONS ASSISTANT.WILLOW WORKER Work Phone: [facility] 02-13-2025 14:51-0400 Diastolic blood pressure 75 mm[Hg] Dinh Barksdale COLLECTIONS ASSISTANT.WILLOW WORKER Work Phone: [facility] 02-13-2025 14:51-0400 Heart rate 86 /min Dinh Barksdale COLLECTIONS ASSISTANT.WILLOW WORKER Work Phone: [facility] 02-13-2025 14:51-0400 Respiratory rate 18 /min Dinh Barksdale COLLECTIONS ASSISTANT.WILLOW WORKER Work Phone: [facility] 02-13-2025 14:51-0400 SaO2% (BldA) [Mass fraction] 98 % Dinh Barksdale COLLECTIONS ASSISTANT.WILLOW WORKER Work Phone: [facility] 02-13-2025 14:51-0400 Systolic blood pressure 137 mm[Hg] Dinh Barksdale COLLECTIONS ASSISTANT.WILLOW WORKER Work Phone: [facility] 01-17-2025 11:41-0400 Body mass index (BMI) [Ratio] 29.01 kg/m2 Ashlyn Keita COLLECTIONS ASSISTANT.WILLOW WORKER Work Phone: [facility] 01-17-2025 11:41-0400 Body weight 71.94 kg Ashlyn Keita COLLECTIONS ASSISTANT.WILLOW WORKER Work Phone: [facility] 01-17-2025 11:41-0400 Diastolic blood pressure 88 mm[Hg] Ashlyn Podlogar COLLECTIONS ASSISTANT.WILLOW WORKER Work Phone: [facility] 01-17-2025 11:41-0400 Heart rate 62 /min Ashlyn Podlogar COLLECTIONS ASSISTANT.WILLOW WORKER Work Phone: [facility] 01-17-2025 11:41-0400 Respiratory rate 18 /min Ashlyn Podlogar COLLECTIONS ASSISTANT.WILLOW WORKER Work Phone: [facility] 01-17-2025 11:41-0400 SaO2% (BldA) [Mass fraction] 94 % Ashlyn Podlogar COLLECTIONS ASSISTANT.WILLOW WORKER Work Phone: [facility] 01-17-2025 11:41-0400 Systolic blood pressure 132 mm[Hg] Ashlyn Podlogar COLLECTIONS ASSISTANT.WILLOW WORKER Work Phone: [facility] 12-24-2024 10:32-0400 Body mass index (BMI) [Ratio] 28.63 kg/m2 Regine Ivey COLLECTIONS ASSISTANT.WILLOW WORKER Work Phone: [facility] 12-24-2024 10:32-0400 Body weight 71 kg Regine Ivey COLLECTIONS ASSISTANT.WILLOW WORKER Work Phone: [facility] 12-24-2024 10:32-0400 Diastolic blood pressure 76 mm[Hg] Regine Ivey COLLECTIONS ASSISTANT.WILLOW WORKER Work Phone: [facility] 12-24-2024 10:32-0400 Heart rate 82 /min Regine Ivey COLLECTIONS ASSISTANT.WILLOW WORKER Work Phone: [facility] 12-24-2024 10:32-0400 Systolic blood pressure 126 mm[Hg] Regine Ivey COLLECTIONS ASSISTANT.WILLOW WORKER Work Phone: [facility] 12-09-2024 15:25-0500 Body mass index (BMI) [Ratio] 30.28 kg/m2 Dinh Barksdale COLLECTIONS ASSISTANT.WILLOW WORKER Work Phone: [facility] 12-09-2024 15:25-0500 Body temperature 99.7 [degF] Dinh Barksdale COLLECTIONS ASSISTANT.WILLOW WORKER Work Phone: [facility] 12-09-2024 15:25-0500 Body weight 75.1 kg [facility] COLLECTIONS ASSISTANT.WILLOW WORKER Work Phone: [facility] 12-09-2024 15:25-0500 Diastolic blood pressure 82 mm[Hg] [facility]h [facility] COLLECTIONS ASSISTANT.WILLOW WORKER Work Phone: [facility] 12-09-2024 15:25-0500 Heart rate 73 /min Dinh [facility] COLLECTIONS ASSISTANT.WILLOW WORKER Work Phone: [facility] 12-09-2024 15:25-0500 Respiratory rate 18 /min [facility] COLLECTIONS ASSISTANT.WILLOW WORKER Work Phone: [facility] 12-09-2024 15:25-0500 SaO2% (BldA) [Mass fraction] 96 % [facility] COLLECTIONS ASSISTANT.WILLOW WORKER Work Phone: [facility] 12-09-2024 15:25-0500 Systolic blood pressure 136 mm[Hg] [facility] COLLECTIONS ASSISTANT.WILLOW WORKER Work Phone: [facility] 11-18-2024 10:29-0500 Body height 157.5 cm Bety Iglesias MD Work Phone: [facility] 11-18-2024 10:29-0500 Body mass index (BMI) [Ratio] 29.26 kg/m2 Bety Iglesias MD Work Phone: [facility] 11-18-2024 10:29-0500 Body weight 72.58 kg Bety Iglesias MD Work Phone: [facility] 11-18-2024 10:29-0500 Diastolic blood pressure 72 mm[Hg] Bety Iglesias MD Work Phone: [facility] 11-18-2024 10:29-0500 Heart rate 71 /min Bety Iglesias MD Work Phone: [facility] 11-18-2024 10:29-0500 Respiratory rate 12 /min Bety Iglesias MD Work Phone: [facility] 11-18-2024 10:29-0500 SaO2% (BldA) [Mass fraction] 98 % Bety Iglesias MD Work Phone: [facility] 11-18-2024 10:29-0500 Systolic blood pressure 126 mm[Hg] Bety Iglesias MD Work Phone: [facility] 11-12-2024 10:45-0500 Body height 160 cm Ashlyn Podlogar COLLECTIONS ASSISTANT.WILLOW WORKER Work Phone: [facility] 11-12-2024 10:45-0500 Body mass index (BMI) [Ratio] 28.59 kg/m2 Ashlyn Podlogar COLLECTIONS ASSISTANT.WILLOW WORKER Work Phone: [facility] 11-12-2024 10:45-0500 Body weight 73.2 kg Ashlyn Podlogar COLLECTIONS ASSISTANT.WILLOW WORKER Work Phone: [facility] 11-12-2024 10:45-0500 Diastolic blood pressure 88 mm[Hg] Ashlyn Podlogar COLLECTIONS ASSISTANT.WILLOW WORKER Work Phone: [facility] 11-12-2024 10:45-0500 Heart rate 64 /min Ashlyn Podlogar COLLECTIONS ASSISTANT.WILLOW WORKER Work Phone: [facility] 11-12-2024 10:45-0500 Respiratory rate 18 /min Ashlyn Podlogar COLLECTIONS ASSISTANT.WILLOW WORKER Work Phone: [facility] 11-12-2024 10:45-0500 SaO2% (BldA) [Mass fraction] 94 % Ashlyn Podlogar COLLECTIONS ASSISTANT.WILLOW WORKER Work Phone: [facility] 11-12-2024 10:45-0500 Systolic blood pressure 150 mm[Hg] Ashlyn Podlogar COLLECTIONS ASSISTANT.WILLOW WORKER Work Phone: [facility] 10-14-2024 15:33-0500 Body mass index (BMI) [Ratio] 28.46 kg/m2 Rojas Fajardoomajoseph COLLECTIONS ASSISTANT.WILLOW WORKER Work Phone: [facility] 10-14-2024 15:33-0500 Body temperature 99.3 [degF] Rojas Kelly COLLECTIONS ASSISTANT.WILLOW WORKER Work Phone: [facility] 10-14-2024 15:33-0500 Body weight 75.2 kg Rojas Moomaw COLLECTIONS ASSISTANT.WILLOW WORKER Work Phone: [facility] 10-14-2024 15:33-0500 Diastolic blood pressure 74 mm[Hg] Rojas Moomaw COLLECTIONS ASSISTANT.WILLOW WORKER Work Phone: [facility] 10-14-2024 15:33-0500 Heart rate 90 /min Rojas Moomaw COLLECTIONS ASSISTANT.WILLOW WORKER Work Phone: [facility] 10-14-2024 15:33-0500 Respiratory rate 19 /min Rojas Moomaw COLLECTIONS ASSISTANT.WILLOW WORKER Work Phone: [facility] 10-14-2024 15:33-0500 SaO2% (BldA) [Mass fraction] 95 % Rojas Moomaw COLLECTIONS ASSISTANT.WILLOW WORKER Work Phone: [facility] 10-14-2024 15:33-0500 Systolic blood pressure 100 mm[Hg] Rojas Moomaw COLLECTIONS ASSISTANT.WILLOW WORKER Work Phone: [facility] 05-07-2024 14:18-0400 Body height 162.6 cm Katerine Rizo MD Work Phone: [facility] 05-07-2024 14:18-0400 Body mass index (BMI) [Ratio] 27.46 kg/m2 Katerine Rizo MD Work Phone: [facility] 05-07-2024 14:18-0400 Body temperature 98.6 [degF] Katerine Rizo MD Work Phone: [facility] 05-07-2024 14:18-0400 Body weight 72.58 kg Katerine Rizo MD Work Phone: [facility] 05-07-2024 14:18-0400 Diastolic blood pressure 72 mm[Hg] Katerine Rizo MD Work Phone: [facility] 05-07-2024 14:18-0400 Heart rate 87 /min Katerine Rizo MD Work Phone: [facility] 05-07-2024 14:18-0400 Respiratory rate 16 /min Katerine Rizo MD Work Phone: [facility] 05-07-2024 14:18-0400 SaO2% (BldA) [Mass fraction] 97 % Katerine Rizo MD Work Phone: [facility] 05-07-2024 14:18-0400 Systolic blood pressure 112 mm[Hg] Katerine Rizo MD Work Phone: [facility] 05-06-2024 10:53-0400 Body mass index (BMI) [Ratio] 27.81 kg/m2 Bety Iglesias MD Work Phone: [facility] 05-06-2024 10:53-0400 Body weight 73.48 kg Bety Iglesias MD Work Phone: [facility] 05-06-2024 10:53-0400 Diastolic blood pressure 85 mm[Hg] Bety Iglesias MD Work Phone: [facility] 05-06-2024 10:53-0400 Heart rate 96 /min Bety Iglesias MD Work Phone: [facility] 05-06-2024 10:53-0400 SaO2% (BldA) [Mass fraction] 100 % Bety Iglesias MD Work Phone: [facility] 05-06-2024 10:53-0400 Systolic blood pressure 141 mm[Hg] Bety Iglesias MD Work Phone: [facility] 05-04-2024 10:40-0400 Body mass index (BMI) [Ratio] 27.89 kg/m2 Sharri Aj APRN.WILLOW WORKER Work Phone: [facility] 05-04-2024 10:40-0400 Body temperature 98.49 [degF] Sharri Aj APRN.WILLOW WORKER Work Phone: [facility] 05-04-2024 10:40-0400 Body weight 73.7 kg Sharri Aj APRN.WILLOW WORKER Work Phone: [facility] 05-04-2024 10:40-0400 Diastolic blood pressure 88 mm[Hg] Sharri Aj APRN.WILLOW WORKER Work Phone: [facility] 05-04-2024 10:40-0400 Heart rate 86 /min Sharriashok Aj APRN.WILLOW WORKER Work Phone: [facility] 05-04-2024 10:40-0400 Respiratory rate 18 /min Sharri Aj NEPTALI.WILLOW WORKER Work Phone: [facility] 05-04-2024 10:40-0400 SaO2% (BldA) [Mass fraction] 99 % Sharri Aj NEPTALI.WILLOW WORKER Work Phone: [facility] 05-04-2024 10:40-0400 Systolic blood pressure 148 mm[Hg] Sharri Jean Marie GUNDERSON.WILLOW WORKER Work Phone: [facility] 04-30-2024 09:28-0400 Body height 162.6 cm Priti Bowser MD Work Phone: [facility] 04-30-2024 09:28-0400 Body mass index (BMI) [Ratio] 27.64 kg/m2 Priti Bowser MD Work Phone: [facility] 04-30-2024 09:28-0400 Body temperature 97.11 [degF] Priti Bowser MD Work Phone: [facility] 04-30-2024 09:28-0400 Body weight 73.03 kg Priti Bowser MD Work Phone: [facility] 04-30-2024 09:28-0400 Diastolic blood pressure 84 mm[Hg] Priti Bowser MD Work Phone: [facility] 04-30-2024 09:28-0400 Heart rate 98 /min Priti Bowser MD Work Phone: [facility] 04-30-2024 09:28-0400 SaO2% (BldA) [Mass fraction] 96 % Priti Bowser MD Work Phone: [facility] 04-30-2024 09:28-0400 Systolic blood pressure 128 mm[Hg] Priti Bowser MD Work Phone: [facility] 03-30-2024 10:05-0400 Body mass index (BMI) [Ratio] 28.73 kg/m2 Perry Bautista MD Work Phone: [facility] 03-30-2024 10:05-0400 Body temperature 97.81 [degF] Perry Bautista MD Work Phone: [facility] 03-30-2024 10:05-0400 Body weight 73.57 kg Perry Bautista MD Work Phone: [facility] 03-30-2024 10:05-0400 Diastolic blood pressure 70 mm[Hg] Perry Bautista MD Work Phone: [facility] 03-30-2024 10:05-0400 Heart rate 84 /min Perry Bautista MD Work Phone: [facility] 03-30-2024 10:05-0400 Respiratory rate 16 /min Perry Bautista MD Work Phone: [facility] 03-30-2024 10:05-0400 SaO2% (BldA) [Mass fraction] 97 % Perry Bautista MD Work Phone: [facility] 03-30-2024 10:05-0400 Systolic blood pressure 126 mm[Hg] Perry Bautista MD Work Phone: [facility] 03-23-2024 11:40-0400 Body mass index (BMI) [Ratio] 28.74 kg/m2 Regine Ivey APRN.WILLOW WORKER Work Phone: [facility] 03-23-2024 11:40-0400 Body temperature 97.59 [degF] Regine Ivey APRN.WILLOW WORKER Work Phone: [facility] 03-23-2024 11:40-0400 Body weight 73.6 kg Regine Ivey APRN.WILLOW WORKER Work Phone: [facility] 03-23-2024 11:40-0400 Diastolic blood pressure 82 mm[Hg] Regine Ivey APRN.WILLOW WORKER Work Phone: [facility] 03-23-2024 11:40-0400 Heart rate 90 /min Regine Ivey COLLECTIONS ASSISTANT.WILLOW WORKER Work Phone: [facility] 03-23-2024 11:40-0400 Respiratory rate 20 /min Regine Ivey COLLECTIONS ASSISTANT.WILLOW WORKER Work Phone: [facility] 03-23-2024 11:40-0400 SaO2% (BldA) [Mass fraction] 98 % Regine Ivey COLLECTIONS ASSISTANT.WILLOW WORKER Work Phone: [facility] 03-23-2024 11:40-0400 Systolic blood pressure 132 mm[Hg] Regine Ivey COLLECTIONS ASSISTANT.WILLOW WORKER Work Phone: [facility] 11-22-2023 11:27-0500 Body temperature 99.7 [degF] Alicia Jurado COLLECTIONS ASSISTANT.WILLOW WORKER Work Phone: [facility] 11-22-2023 11:27-0500 Body weight 76.2 kg Alicia Rhiannon COLLECTIONS ASSISTANT.WILLOW WORKER Work Phone: [facility] 11-22-2023 11:27-0500 Diastolic blood pressure 80 mm[Hg] Alicia Jurado COLLECTIONS ASSISTANT.WILLOW WORKER Work Phone: [facility] 11-22-2023 11:27-0500 Heart rate 88 /min Alicia Jurado COLLECTIONS ASSISTANT.WILLOW WORKER Work Phone: [facility] 11-22-2023 11:27-0500 Respiratory rate 16 /min Alicia Jurado COLLECTIONS ASSISTANT.WILLOW WORKER Work Phone: [facility] 11-22-2023 11:27-0500 SaO2% (BldA) [Mass fraction] 97 % Alicia Jurado COLLECTIONS ASSISTANT.WILLOW WORKER Work Phone: [facility] 11-22-2023 11:27-0500 Systolic blood pressure 120 mm[Hg] Alicia Jurado COLLECTIONS ASSISTANT.WILLOW WORKER Work Phone: [facility] 07-18-2023 11:22-0400 Body height 160.6 cm Ashlyn Keita COLLECTIONS ASSISTANT.WILLOW WORKER Work Phone: [facility] 07-18-2023 11:22-0400 Body weight 75.84 kg Ashlyn Podlogar COLLECTIONS ASSISTANT.WILLOW WORKER Work Phone: [facility] 07-18-2023 11:22-0400 Diastolic blood pressure 76 mm[Hg] Ashlyn Podlogar COLLECTIONS ASSISTANT.WILLOW WORKER Work Phone: [facility] 07-18-2023 11:22-0400 Heart rate 74 /min Ashlyn Podlogar COLLECTIONS ASSISTANT.WILLOW WORKER Work Phone: [facility] 07-18-2023 11:22-0400 Respiratory rate 16 /min Ashlyn Podlogar COLLECTIONS ASSISTANT.WILLOW WORKER Work Phone: [facility] 07-18-2023 11:22-0400 SaO2% (BldA) [Mass fraction] 97 % Ashlyn Podlogar COLLECTIONS ASSISTANT.WILLOW WORKER Work Phone: [facility] 07-18-2023 11:22-0400 Systolic blood pressure 118 mm[Hg] Ashlyn Podlogar COLLECTIONS ASSISTANT.WILLOW WORKER Work Phone: [facility] 06-30-2023 09:55-0400 Body height 160.6 cm Ashlyn Podlogar COLLECTIONS ASSISTANT.WILLOW WORKER Work Phone: [facility] 06-30-2023 09:55-0400 Body weight 75.3 kg Ashlyn Podlogar COLLECTIONS ASSISTANT.WILLOW WORKER Work Phone: [facility] 06-30-2023 09:55-0400 Diastolic blood pressure 78 mm[Hg] Ashlyn Podlogar COLLECTIONS ASSISTANT.WILLOW WORKER Work Phone: [facility] 06-30-2023 09:55-0400 Heart rate 88 /min Ashlyn Podlogar COLLECTIONS ASSISTANT.WILLOW WORKER Work Phone: [facility] 06-30-2023 09:55-0400 Respiratory rate 16 /min Ashlyn Podlogar COLLECTIONS ASSISTANT.WILLOW WORKER Work Phone: [facility] 06-30-2023 09:55-0400 SaO2% (BldA) [Mass fraction] 92 % Ashlyn Podlogar COLLECTIONS ASSISTANT.WILLOW WORKER Work Phone: [facility] 06-30-2023 09:55-0400 Systolic blood pressure 116 mm[Hg] Ashlyn Keita COLLECTIONS ASSISTANT.WILLOW WORKER Work Phone: [facility] 04-20-2023 13:29-0400 Heart rate 83 /min Leonard Poe MD Work Phone: [facility] 04-20-2023 13:29-0400 Respiratory rate 16 /min Leonard Poe MD Work Phone: [facility] 04-20-2023 13:29-0400 SaO2% (BldA) [Mass fraction] 95 % Leonard Poe MD Work Phone: [facility] 01-20-2023 11:12-0400 Body temperature 99.19 [degF] Alicia Jurado COLLECTIONS ASSISTANT.WILLOW WORKER Work Phone: [facility] 01-20-2023 11:12-0400 Body weight 75.21 kg Alicia Jurado COLLECTIONS ASSISTANT.WILLOW WORKER Work Phone: [facility] 01-20-2023 11:12-0400 Diastolic blood pressure 76 mm[Hg] Alicia Jurado COLLECTIONS ASSISTANT.WILLOW WORKER Work Phone: [facility] 01-20-2023 11:12-0400 Heart rate 90 /min Alicia Jurado COLLECTIONS ASSISTANT.WILLOW WORKER Work Phone: [facility] 01-20-2023 11:12-0400 Respiratory rate 18 /min Alicia Jurado COLLECTIONS ASSISTANT.WILLOW WORKER Work Phone: [facility] 01-20-2023 11:12-0400 SaO2% (BldA) [Mass fraction] 96 % Alicia Jurado COLLECTIONS ASSISTANT.WILLOW WORKER Work Phone: [facility] 01-20-2023 11:12-0400 Systolic blood pressure 122 mm[Hg] Alicia Jurado COLLECTIONS ASSISTANT.WILLOW WORKER Work Phone: [facility] 11-17-2022 14:11-0500 Heart rate 85 /min Leonard Poe MD Work Phone: [facility] 11-17-2022 14:11-0500 Respiratory rate 16 /min Leonard Poe MD Work Phone: [facility] 11-17-2022 14:11-0500 SaO2% (BldA) [Mass fraction] 98 % Leonard Poe MD Work Phone: [facility] 10-17-2022 14:42-0500 Body weight 74.57 kg Ashlyn Podlogar COLLECTIONS ASSISTANT.WILLOW WORKER Work Phone: [facility] 10-17-2022 14:42-0500 Diastolic blood pressure 78 mm[Hg] Ashlyn Podlogar COLLECTIONS ASSISTANT.WILLOW WORKER Work Phone: [facility] 10-17-2022 14:42-0500 Heart rate 103 /min Ashlyn Podlogar COLLECTIONS ASSISTANT.WILLOW WORKER Work Phone: [facility] 10-17-2022 14:42-0500 Respiratory rate 16 /min Ashlyn Podlogar COLLECTIONS ASSISTANT.WILLOW WORKER Work Phone: [facility] 10-17-2022 14:42-0500 SaO2% (BldA) [Mass fraction] 97 % Ashlyn Podlogar COLLECTIONS ASSISTANT.WILLOW WORKER Work Phone: [facility] 10-17-2022 14:42-0500 Systolic blood pressure 142 mm[Hg] Ashlyn Podlogar COLLECTIONS ASSISTANT.WILLOW WORKER Work Phone: [facility] 09-26-2022 14:27-0500 Heart rate 88 /min Nuris Bogner PA-C Work Phone: [facility] 09-26-2022 14:11-0500 Body temperature 98.4 [degF] Nuris Bogner PA-C Work Phone: [facility] 09-26-2022 14:11-0500 Body weight 73.66 kg Nuris Bogner PA-C Work Phone: [facility] 09-26-2022 14:11-0500 Diastolic blood pressure 92 mm[Hg] Nuris Bogner PA-C Work Phone: [facility] 09-26-2022 14:11-0500 Respiratory rate 18 /min Nuris Bogner PA-C Work Phone: [facility] 09-26-2022 14:11-0500 SaO2% (BldA) [Mass fraction] 98 % Nuris Bogner PA-C Work Phone: [facility] 09-26-2022 14:11-0500 Systolic blood pressure 142 mm[Hg] Nuris Bogner PA-C Work Phone: [facility] 08-04-2022 13:58-0400 Body temperature 97.9 [degF] Cornelia Lin COLLECTIONS ASSISTANT.WILLOW WORKER Work Phone: [facility] 08-04-2022 13:58-0400 Body weight 74.3 kg Cornelia Ceballos COLLECTIONS ASSISTANT.WILLOW WORKER Work Phone: [facility] 08-04-2022 13:58-0400 Diastolic blood pressure 82 mm[Hg] Cornelia Lin COLLECTIONS ASSISTANT.WILLOW WORKER Work Phone: [facility] 08-04-2022 13:58-0400 Heart rate 105 /min Cornelia Lin COLLECTIONS ASSISTANT.WILLOW WORKER Work Phone: [facility] 08-04-2022 13:58-0400 Respiratory rate 18 /min Cornelia Lin COLLECTIONS ASSISTANT.WILLOW WORKER Work Phone: [facility] 08-04-2022 13:58-0400 SaO2% (BldA) [Mass fraction] 97 % Cornelia Lin COLLECTIONS ASSISTANT.WILLOW WORKER Work Phone: [facility] 08-04-2022 13:58-0400 Systolic blood pressure 144 mm[Hg] Cornelia Lin COLLECTIONS ASSISTANT.WILLOW WORKER Work Phone: [facility] 07-23-2022 10:01-0400 Body temperature 98.8 [degF] Dinh Barksdale COLLECTIONS ASSISTANT.WILLOW WORKER Work Phone: [facility] 07-23-2022 10:01-0400 Body weight 74.39 kg Dinh Barksdale COLLECTIONS ASSISTANT.WILLOW WORKER Work Phone: [facility] 07-23-2022 10:01-0400 Diastolic blood pressure 80 mm[Hg] Dinh Lucioboydyessica COLLECTIONS ASSISTANT.WILLOW WORKER Work Phone: [facility] 07-23-2022 10:01-0400 Heart rate 92 /min Dinh Shamir COLLECTIONS ASSISTANT.WILLOW WORKER Work Phone: [facility] 07-23-2022 10:01-0400 Respiratory rate 16 /min Dinh Barksdale COLLECTIONS ASSISTANT.WILLOW WORKER Work Phone: [facility] 07-23-2022 10:01-0400 SaO2% (BldA) [Mass fraction] 96 % Dinh Valdesboydyessica COLLECTIONS ASSISTANT.WILLOW WORKER Work Phone: [facility] 07-23-2022 10:01-0400 Systolic blood pressure 138 mm[Hg] Dinh Barksdale COLLECTIONS ASSISTANT.WILLOW WORKER Work Phone: [facility] 03-29-2022 13:58-0400 Body temperature 98.01 [degF] Sharri Aj APRN.WILLOW WORKER Work Phone: [facility] 03-29-2022 13:58-0400 Body weight 71.58 kg Sharri Aj APRN.WILLOW WORKER Work Phone: [facility] 03-29-2022 13:58-0400 Diastolic blood pressure 74 mm[Hg] Sharri Aj APRN.WILLOW WORKER Work Phone: [facility] 03-29-2022 13:58-0400 Heart rate 90 /min Sharri Aj APRN.WILLOW WORKER Work Phone: [facility] 03-29-2022 13:58-0400 Respiratory rate 18 /min Sharri Aj APRN.WILLOW WORKER Work Phone: [facility] 03-29-2022 13:58-0400 SaO2% (BldA) [Mass fraction] 97 % Sharri Aj APRN.WILLOW WORKER Work Phone: [facility] 03-29-2022 13:58-0400 Systolic blood pressure 132 mm[Hg] Sharri Aj APRN.CNP Work Phone: [facility] 03-17-2022 11:01-0400 Body temperature 98.01 [degF] Kieran West MD Work Phone: [facility] 03-17-2022 11:01-0400 Body weight 71.94 kg Kieran West MD Work Phone: [facility] 03-17-2022 11:01-0400 Diastolic blood pressure 84 mm[Hg] Kieran West MD Work Phone: [facility] 03-17-2022 11:01-0400 Heart rate 76 /min Kieran West MD Work Phone: [facility] 03-17-2022 11:01-0400 Respiratory rate 18 /min Kieran West MD Work Phone: [facility] 03-17-2022 11:01-0400 SaO2% (BldA) [Mass fraction] 98 % Kieran West MD Work Phone: [facility] 03-17-2022 11:01-0400 Systolic blood pressure 142 mm[Hg] Kieran West MD Work Phone: [facility] Encounters Encounter Date Encounter Type Care Provider Facility Start: 07-10-2025 End: 07-10-2025 ambulatory BETY IGLESIAS Facility:[facility] Start: 04-30-2025 End: 05-08-2025 ambulatory [...] Start: 04-29-2025 End: 04-29-2025 ambulatory PERRY BAUTISTA Facility:[facility] Start: 04-27-2025 End: 04-28-2025 Refill Bety Iglesias MD Work Phone: Cardiology Comment on above: Refill Request Start: 03-25-2025 End: 04-02-2025 Follow-up encounter Fanta Trammell APRN.WILLOW WORKER Work Phone: [facility] [place] Start: 03-24-2025 ambulatory [facility] Facility:[facility] Start: 03-24-2025 End: 03-24-2025 Subsequent hospital visit by physician [facility] Work Phone: Nuclear Medicine Comment on above: 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] Start: 03-04-2025 End: 03-05-2025 ambulatory [facility] Provider [facility] [place] Comment on above: My ultrasound result s Start: 02-25-2025 [facility] Facility:[facility] Start: 02-14-2025 End: 02-14-2025 Patient encounter procedure Fanta Trammell COLLECTIONS ASSISTANT.WILLOW WORKER Work Phone: [facility] [place] Comment on above: Postherpetic neuralg ia (Primary Dx); Generalized abdominal pain; Other fatigue Start: 02-14-2025 End: 02-14-2025 [facility] Facility:[facility] Start: 02-13-2025 End: 02-13-2025 Office outpatient visit 15 minutes Dinh Barksdale APRN.WILLOW WORKER Work Phone: [facility] Comment on above: Abdominal pain, unsp ecified abdominal location (Primary Dx) Start: 02-13-2025 End: 02-13-2025 ambulatory DINH BARKSDALE Facility:[facility] Start: 02-13-2025 End: 02-13-2025 Follow-up encounter Dinh Barksdale APRN.WILLOW WORKER Work Phone: [facility] Start: 01-17-2025 End: 01-17-2025 Patient encounter procedure Ashlyn Keita APRN.WILLOW WORKER Work Phone: Family [facility] [place] Comment on above: Postherpetic neuralg ia Start: 01-17-2025 End: 01-17-2025 ambulatory ASHLYN PODLOGAR Facility:[facility] Start: 01-06-2025 End: 01-06-2025 ambulatory [facility] Facility:[facility] Start: 01-06-2025 End: 01-06-2025 Office outpatient visit 15 minutes Wanda Hawkinss COLLECTIONS ASSISTANT.CURRICULUM DEVELOPER Work Phone: Internal Medicine [place] Comment on above: Herpes zoster withou t complication; Lack of appetite; Postherpetic neuralgia Start: 12-24-2024 End: 12-24-2024 Patient encounter procedure Regine Ivey COLLECTIONS ASSISTANT.WILLOW WORKER Work Phone: [facility] [place] Comment on above: Herpes zoster withou t complication (Primary Dx); Bacterial sinusitis Start: 12-24-2024 End: 12-24-2024 ambulatory REGINE IVEY Facility:[facility] Start: 12-10-2024 End: 02-09-2025 Follow-up encounter Jill Mathur APRN.WILLOW WORKER Work Phone: [facility] Start: 12-09-2024 End: 12-09-2024 Office outpatient visit 25 minutes Dinh Barksdale COLLECTIONS ASSISTANT.WILLOW WORKER Work Phone: [facility] Comment on above: Acute cough (Primary Dx); Viral illness; Diarrhea, unspecified type Start: 12-09-2024 End: 12-09-2024 ambulatory PERRY BAUTISTA Facility:[facility] Start: 12-09-2024 End: 12-09-2024 Subsequent hospital visit by physician Xr [facility] [place] Work Phone: Radiology Comment on above: Acute cough [R05.1] Start: 12-06-2024 End: 12-06-2024 ambulatory ASHLYN PODLOGAR Facility:[facility] Start: 12-06-2024 End: 12-06-2024 Subsequent hospital visit by physician Bone Density [facility] Work Phone: Radiology Comment on above: Osteoporosis, unspec ified osteoporosis type, unspecified pathological fracture presence [M81.0] Start: 11-28-2024 End: 11-30-2024 Follow-up encounter Perry Bautista MD Work Phone: [facility] [place] Start: 11-27-2024 End: 11-27-2024 ambulatory ASHLYN PODLOGAR Facility:[facility] Start: 11-18-2024 End: 11-18-2024 ambulatory BETY IGLESIAS Facility:[facility] Start: 11-18-2024 End: 11-18-2024 Patient encounter procedure Bety Iglesias MD Work Phone: Cardiology Comment on above: Nonrheumatic mitral valve regurgitation (Primary Dx); Palpitations Start: 11-13-2024 End: 11-13-2024 Telephone encounter Ashlyn Gundersonlogchloé COLLECTIONS ASSISTANT.WILLOW WORKER Work Phone: [facility] [place] Comment on above: Results Start: 11-12-2024 End: 11-12-2024 Patient encounter procedure Ashlyn Podlogchloé COLLECTIONS ASSISTANT.WILLOW WORKER Work Phone: [facility] [place] Comment on above: Medicare annual well ness visit, subsequent (Primary Dx); Osteoporosis, unspecified osteoporosis type, unspecified pathological fracture presence Start: 11-12-2024 End: 11-12-2024 ambulatory ASHLYN PODLOGAR Facility:[facility] Start: 11-11-2024 End: 11-11-2024 Telephone encounter Perry Bautista MD Work Phone: Family [facility] [place] Comment on above: Results Start: 11-08-2024 End: 11-08-2024 ambulatory PERRY BAUTISTA Facility:[facility] Start: 11-08-2024 End: 11-08-2024 Subsequent hospital visit by physician Screen Mammo [facility] Comment on above: Encounter for screen ing mammogram for breast cancer [Z12.31] Start: 10-15-2024 End: 10-18-2024 ambulatory Perry Bautista MD Work Phone: Internal Medicine [facility] [place] Start: 10-15-2024 End: 10-15-2024 Telephone encounter Perry Bautista MD Work Phone: [facility] [place] Comment on above: Medication Request Start: 10-14-2024 End: 10-14-2024 Patient encounter procedure Rojas Kelly COLLECTIONS ASSISTANT.WILLOW WORKER Work Phone: [facility] Comment on above: Nasal congestion (Pr imary Dx) Start: 10-14-2024 End: 10-14-2024 ambulatory PERRY BAUTISTA Facility:[facility] Start: 07-19-2024 End: 07-19-2024 ambulatory BETY IGLESIAS Facility:[facility] Start: 06-24-2024 End: 06-24-2024 ambulatory Katerine Rizo MD Work Phone: Allergy and Immunology [facility] Comment on above: Acute urticaria ([place] Dx) Start: 06-24-2024 End: 06-24-2024 Telemedicine consultation with patient Katerine Rizo MD Work Phone: Allergy and Immunology [facility] Start: 05-29-2024 End: 05-30-2024 Telephone encounter [...] 05-07-2024 Emergency department patient visit Charles Bautista Facility:[facility] Start: 05-06-2024 End: 05-06-2024 Patient encounter procedure Bety Iglesias MD Work Phone: Cardiology Comment on above: Nonrheumatic mitral valve regurgitation (Primary Dx); Palpitations Abnormal ultrasound of thyroid gland (Primary Dx) Start: 05-05-2024 Telephone encounter Andie BARRY Work Phone: [facility] Comment on above: Results Start: 05-04-2024 End: 05-04-2024 Patient encounter procedure Sharri Aj APRN.WILLOW WORKER Work Phone: [facility] Comment on above: Vaginal itching ([place] Dx); Hives Start: 04-30-2024 End: 04-30-2024 Patient encounter procedure Priti Bowser MD Work Phone: General Surgery Comment on above: Abnormal ultrasound of thyroid gland (Primary Dx); Multinodular goiter Start: 04-24-2024 Telephone encounter Charles Bautista MD Work Phone: [facility] Comment on above: Results Start: 04-19-2024 End: 04-19-2024 Subsequent hospital visit by physician [facility] Work Phone: Radiology Comment on above: Nodular thyroid dise ase [E04.1] Start: 03-30-2024 End: 03-30-2024 Patient encounter procedure Perry Bautista MD Work Phone: [facility] Comment on above: Sore throat (Primary Dx); Seasonal allergic rhinitis, unspecified trigger; Nodular thyroid disease; Heart murmur; Nonrheumatic mitral valve regurgitation Start: 03-29-2024 End: 03-29-2024 ambulatory Sheela Perez Facility:[facility] Start: 03-23-2024 End: 03-23-2024 Patient encounter procedure Regine Ivey APRN.WILLOW WORKER Work Phone: [facility] Comment on above: Sore throat (Primary Dx) Start: 12-07-2023 End: 12-07-2023 ambulatory PRITI HUANG ABBY Facility:[facility] Start: 11-22-2023 End: 11-22-2023 Subsequent hospital visit by physician Xr [facility] [place] Work Phone: Radiology Comment on above: Acute cough [R05.1] Start: 11-22-2023 End: 11-22-2023 Patient encounter procedure Alicia Jurado APRN.WILLOW WORKER Work Phone: [facility] Comment on above: Acute cough (Primary Dx); URI, acute; Acute otitis media, right Start: 11-14-2023 ambulatory Regine ([facility]) [facility] Comment on above: Population Health Na vigation Outreach ([employer] care gaps/PCP field update) Start: 10-26-2023 End: 08-13-2024 Telephone encounter Fread Saab PA-C Work Phone: General Surgery Comment on above: 12/07/2023 COLON LODI Start: 09-14-2023 Documentation procedure Mammog andres Coordinator [facility] Start: 09-14-2023 Letter encounter Mammography Coordinator [facility] Department Start: 09-14-2023 Telephone encounter Ashlyn bonner APRN.WILLOW WORKER Work Phone: [facility] [place] Start: 09-13-2023 End: 09-13-2023 Subsequent hospital visit by physician Screen Mammo [facility] Comment on above: Encounter for screen ing mammogram for breast cancer [Z12.31] Start: 07-27-2023 Telephone encounter Charles Bautista MD Work Phone: [facility] [place] Comment on above: Results Start: 07-18-2023 End: 07-18-2023 Patient encounter procedure Ashlyn Keita APRN.WILLOW WORKER Work Phone: [facility] [place] Comment on above: Encounter to [facility] (Primary Dx); Screening for colon cancer; Encounter for screening mammogram for breast cancer; Hyperlipidemia, mixed Start: 06-30-2023 End: 06-30-2023 Subsequent hospital visit by physician Xr [facility] [place] Work Phone: Radiology Comment on above: Chest pain, unspecif ied type [R07.9] Start: 06-30-2023 End: 06-30-2023 Patient encounter procedure Ashlyn Keita APRN.CNP Work Phone: [facility] [place] Comment on above: Chest pain, unspecif ied type (Primary Dx); Mitral valve insufficiency, unspecified etiology; Palpitations; Screening for hyperlipidemia; Fatigue, unspecified type Start: 04-20-2023 End: 04-20-2023 ambulatory [facility] Facility:[facility] Start: 04-20-2023 End: 04-20-2023 Patient encounter procedure Leonard Poe MD Work Phone: [facility] Comment on above: Spinal stenosis, lum bar region, without neurogenic claudication (Primary Dx); Spondylolisthesis of lumbar region; Lumbar radiculopathy; Lumbar spondylosis; Allergy history, anesthetic Start: 03-31-2023 ambulatory Regine ([facility]) [facility] Comment on above: Population Health Na vigation Outreach ([employer] Care Gaps) Start: 03-14-2023 Telephone encounter Ashlyn bonner APRN.WILLOW WORKER Work Phone: [facility] Comment on above: Patient Update Start: 03-02-2023 End: 03-02-2023 Subsequent hospital visit by physician Mri Radio [facility] (I-Stat/1.5t) Work Phone: Radiology Comment on above: Spinal stenosis of l umbar region without neurogenic claudication [M48.061] Start: 02-02-2023 End: 02-02-2023 ambulatory [facility] Facility:[facility] [place] Start: 01-20-2023 End: 01-20-2023 Subsequent hospital visit by physician Xr [facility] [place] Work Phone: Radiology Comment on above: Acute cough [R05.1] Start: 01-20-2023 End: 01-20-2023 Patient encounter procedure Alicia Jurado APRN.CNP Work Phone: [facility] Comment on above: Acute cough (Primary Dx); Rhinosinusitis Start: 12-02-2022 End: 12-02-2022 ambulatory Alicia O'Obie PT [facility] Comment on above: Lumbar pain (Primary Dx); Left hip pain Start: 11-29-2022 End: 11-29-2022 ambulatory Alicia O'Obie PT [facility] Comment on above: Lumbar pain (Primary Dx); Left hip pain Start: 11-25-2022 End: 11-25-2022 ambulatory Alicia O'Obie PT [facility] Comment on above: Lumbar pain (Primary Dx); Left hip pain Start: 11-22-2022 End: 11-22-2022 ambulatory Alicia O'Obie PT [facility] Comment on above: Lumbar pain (Primary Dx); Left hip pain Start: 11-18-2022 End: 11-18-2022 ambulatory Alicia O'Obie PT [facility] Comment on above: Lumbar pain (Primary Dx); Left hip pain Start: 11-17-2022 ambulatory No Pcp Paul urena [place] Start: 11-17-2022 End: 11-17-2022 Patient encounter procedure Leonard Poe MD Work Phone: [facility] Comment on above: Lumbar spondylosis ( Primary Dx); Spondylolisthesis of lumbar region; Spinal stenosis, lumbar region, without neurogenic claudication Start: 11-15-2022 Telephone encounter Ashlyn bonner APRN.CNP Work Phone: [facility] Comment on above: Patient Question Start: 11-15-2022 End: 11-15-2022 ambulatory Alicia O'Obie PT [facility] Comment on above: Lumbar pain (Primary Dx); Left hip pain Start: 11-10-2022 End: 11-10-2022 ambulatory Brisa Kashuba MAINTENANCE INSPECTOR Work Phone: [facility] Comment on above: Lumbar pain (Primary Dx); Left hip pain Start: 11-08-2022 End: 11-08-2022 ambulatory Brisa Kashuba MAINTENANCE INSPECTOR Work Phone: [facility] Comment on above: Lumbar pain (Primary Dx); Left hip pain Start: 11-02-2022 End: 11-02-2022 ambulatory Alicia Ingram'Obie PT [facility] Comment on above: Lumbar pain (Primary Dx); Left hip pain Start: 11-01-2022 End: 11-01-2022 ambulatory Alicia Ingram'Obie PT [facility] Comment on above: Lumbar pain (Primary Dx); Left hip pain Start: 10-18-2022 Telephone encounter Ashlyn bonner APRN.CNP Work Phone: [facility] [place] Comment on above: Orders Start: 10-17-2022 End: 10-17-2022 Subsequent hospital visit by physician Xr [facility] [place] Work Phone: Radiology Comment on above: Left hip pain [M25.5 52] Start: 10-17-2022 End: 10-17-2022 Patient encounter procedure Ashlyn Keita APRN.CNP Work Phone: [facility] [place] Comment on above: Left hip pain (Prima ry Dx); Lumbar pain Start: 09-26-2022 End: 09-26-2022 Office outpatient visit 25 minutes Nuris Enriquez PA-C Work Phone: [facility] Comment on above: Left lumbar pain (Pr imary Dx) Start: 08-19-2022 Documentation procedure Mammog andres Coordinator [facility] Start: 08-19-2022 Letter encounter Mammography Coordinator [facility] Department Start: 08-19-2022 Telephone encounter Ashlyn bonner APRN.CNP Work Phone: [facility] Comment on above: Results Start: 08-18-2022 End: 08-18-2022 Subsequent hospital visit by physician Screen Mammo [facility] Comment on above: Encounter for screen ing mammogram for breast cancer [Z12.31] Start: 08-11-2022 Telephone encounter Sharri Aj APRN.CNP Work Phone: [facility] Comment on above: Results Start: 08-04-2022 End: 08-04-2022 Patient encounter procedure Cornelia Khank COLLECTIONS ASSISTANT.WILLOW WORKER Work Phone: [facility] Comment on above: Soreness of tongue ( Primary Dx) Start: 07-23-2022 End: 07-23-2022 Patient encounter procedure Dinh Barksdale APRN.WILLOW WORKER Work Phone: [facility] Comment on above: Bacterial sinusitis (Primary Dx) Start: 07-19-2022 End: 07-19-2022 ambulatory [facility] Work Phone: Start: 07-19-2022 End: 07-19-2022 Patient encounter procedure [facility] Start: 03-29-2022 End: 03-29-2022 Subsequent hospital visit by physician Xr [facility] Work Phone: Radiology Comment on above: Injury [T14.90XA] Start: 03-29-2022 End: 03-29-2022 Patient encounter procedure Sharri Aj COLLECTIONS ASSISTANT.WILLOW WORKER Work Phone: [facility] Comment on above: Injury (Primary Dx) Start: 03-17-2022 End: 03-17-2022 Patient encounter procedure Kieran West MD Work Phone: [facility] Comment on above: Contact dermatitis a nd other eczema, due to unspecified cause (Primary Dx) Procedures Date Procedure Procedure Detail Performing Clinician Start: 03-24-2025 Hepatobil syst imag inc gb w/pharma intervenj Fanta Trammell COLLECTIONS ASSISTANT.WILLOW WORKER Work Phone: Start: 12-09-2024 Radiologic exam ches t 2 views Dinh Barksdale COLLECTIONS ASSISTANT.WILLOW WORKER Work Phone: Start: 11-12-2024 Lipid 1996 panel - S shavonne or Plasma Ashlyn Keita COLLECTIONS ASSISTANT.WILLOW WORKER Work Phone: Start: 11-08-2024 Screening digital br east tomosynthesis bi Bulk Order Provider Start: 05-06-2024 US THYROID BIOPSY RI GHT (POC) SURG USE ONLY Priti Bowser MD Work Phone: Start: 11-22-2023 Radiologic exam ches t 2 views Alicia Jurado COLLECTIONS ASSISTANT.WILLOW WORKER Work Phone: Start: 11-22-2023 COVID & INFLUENZA A/ B & RSV NAAT, ROUTINE Alicia Jurado COLLECTIONS ASSISTANT.WILLOW WORKER Work Phone: Start: 06-30-2023 Radiologic exam ches t 2 views Ashlyn Podlogar COLLECTIONS ASSISTANT.WILLOW WORKER Work Phone: Start: 06-30-2023 Lipid 1996 panel - S sahvonne or Plasma Ashlyn Podlogar COLLECTIONS ASSISTANT.WILLOW WORKER Work Phone: Start: 03-02-2023 Mri spinal canal lum bar w/o contrast material Leonard Poe MD Work Phone: Start: 01-20-2023 COVID WITH FLUA+B, ROUTINE Alicia Jurado COLLECTIONS ASSISTANT.WILLOW WORKER Work Phone: Start: 01-20-2023 Radiologic exam ches t 2 views Alicia Jurado COLLECTIONS ASSISTANT.WILLOW WORKER Work Phone: Start: 10-17-2022 Radex hip unilateral with pelvis 2-3 views Ashlyn Podlogar COLLECTIONS ASSISTANT.WILLOW WORKER Work Phone: Start: 08-18-2022 TINO SCREENING W GIANLUCA Bu lk Order Provider Start: 08-18-2022 Mammography Ashlyn Podl ogar COLLECTIONS ASSISTANT.WILLOW WORKER Work Phone: Start: 03-29-2022 Radex foot complete minimum 3 views Sharri Aj COLLECTIONS ASSISTANT.WILLOW WORKER Work Phone: Start: 07-31-2020 Mammography Kieran gold MD Work Phone: Start: 10-16-2019 Lipid 1996 panel - S shavonne or Plasma Ashlyn Podlogar COLLECTIONS ASSISTANT.WILLOW WORKER Work Phone: Start: 11-06-2017 Adult depression scr eening assessment Kieran West MD Work Phone: Start: 06-04-2008 Colonoscopy Kieran gold MD Work Phone: Urine culture Plan of Treatment Date Care Activity Detail Author Start: 11-12-2029 Lipid panel Lipid Screening [facility] Start: 09-04-2029 Urine microalbumin profile [facility] Start: 06-30-2028 Lipid 1996 panel - Serum or Plasma Lipid Screening [facility] Start: 06-30-2028 Lipid panel Lipid Screening [facility] Start: 02-14-2028 Diabetes Screening Diabetes Screening [facility] Start: 11-27-2027 Diabetes Screening Diabetes Screening [facility] Start: 11-12-2027 Diabetes Screening Diabetes Screening [facility] Start: 12-26-2026 RSV Vaccine (1 - 1-dose 75+ series) RSV Vaccine (1 - 1-dose 75+ series) [facility] Start: 12-06-2026 Screening for osteoporosis Bone Density Screening [facility] Start: 06-30-2026 Diabetes Screening Diabetes Screening [facility] Start: 11-12-2025 Covid-19 Vaccine ( season) Covid-19 Vaccine ( season) [facility] Comment on above: Postponed from 06/09/2024 (Declined at t his time) Start: 11-12-2025 RSV Vaccine (1 - Risk 60-74 years 1-dose series) RSV Vaccine (1 - Risk 60-74 years 1-dose series) [facility] Comment on above: Postponed from 2011 (Declined at t his time) Start: 11-12-2025 Shingrix Vaccine (1 of 2) Shingrix Vaccine (1 of 2) [facility] Comment on above: Postponed from 12/26/2001 (Declined at t his time) Start: 11-12-2025 End: 11-12-2025 Patient encounter procedure 11/12/2025 11:20 AM EST Office Visit [facility] [place] [address] [place] [address] PodAshlyn xie APRN.WILLOW WORKER [address] [place] [address] Medicare Wellness [facility] [place] Comment on above: Medicare Wellness Start: 11-08-2025 Screening for malignant neoplasm of breast Mammogram Screening [facility] Start: 08-11-2025 End: 08-11-2025 Patient encounter procedure 08/11/2025 10:20 AM EST Office Visit Cardiology [address] [place] [address] Bety Iglesias MD [address] [place] [address] 6 month follow up Cardiology Comment on above: 6 month follow up Start: 07-10-2025 End: 07-10-2025 Patient encounter procedure 07/10/2025 10:30 AM EDT Office Visit Cardiology [address] [place] [address] Nonrheumatic mitral valve regurgitation [I34.0] Cardiology Comment on above: Nonrheumatic mitral valve regurgitation [I34.0] Start: 07-09-2025 End: 11-18-2025 Echocardiography ECHO Cardiology Routine Nonrheumatic mitral valve regurgitation Expected: 07/09/2025, Expires: 11/18/2025 [facility] Work Phone: Comment on above: Expected: 07/09/2025, Expires: Start: 06-09-2025 Influenza vaccination [facility] Start: 04-29-2025 End: 04-29-2025 Patient encounter procedure 04/29/2025 9:00 AM EDT Office Visit [facility] [address] [facility] [place] [address] Perry Bautista MD [address] [place] [address] Scan results [facility] Comment on above: Scan results Start: 04-24-2025 End: 05-24-2025 US Thyroid gland US THYROID/PARATHYROID Radiology Routine Nodular thyroid disease Expected: 04/24/2025, Expires: 05/24/2025 [facility] Comment on above: Expected: 04/24/2025, Expires: Start: 04-07-2025 [facility] on above: Postponed from 06/09/2024 (Declined at t his time) Start: 02-25-2025 End: 02-25-2025 Patient encounter procedure 02/25/2025 7:45 AM EDT Appointment Radiology [address] [place] [address] Dx: Generalized abdominal pain [R10.84] Radiology Comment on above: Dx: Generalized abdominal pain [R10.84] Start: 02-14-2025 End: 02-14-2025 Patient encounter procedure 02/14/2025 1:40 PM EDT Office Visit Internal Medicine [place] [address] [place] [address] Fanta Trammell APRN.WILLOW WORKER [address] [place] [address] URG CARE folllow up 02/13/25 Internal Medicine [place] Comment on above: URG CARE folllow up 02/13/25 Start: 12-06-2024 End: 12-06-2024 Patient encounter procedure 12/06/2024 7:45 AM EST Appointment Radiology [address] [place] [id number] Osteoporosis, unspecified osteoporosis type, unspecified pathological fracture presence [M81.0] Radiology Comment on above: Osteoporosis, unspecified osteoporosis t ype, unspecified pathological fracture presence [M81.0] Start: 11-27-2024 End: 02-26-2025 Comprehensive metabolic 2000 panel - Serum or Plasma COMPREHENSIVE METABOLIC PANEL Lab Routine Hyperkalemia Hypercalcemia Expected: 11/27/2024, Expires: 02/26/2025 [facility] Work Phone: Comment on above: Expected: 11/27/2024, Expires: Start: 11-18-2024 End: 11-18-2024 Patient encounter procedure Cardiology Comment on above: 6 month follow up Start: 11-12-2024 End: 02-11-2025 CBC W Auto Differential panel - Blood [facility] Comment on above: Expected: 11/12/2024, Expires: Start: 11-12-2024 End: 02-11-2025 Comprehensive metabolic 2000 panel - Serum or Plasma [facility] Comment on above: Expected: 11/12/2024, Expires: Start: 11-12-2024 End: 02-11-2025 LIPID PANEL, NONFASTING [facility] Comment on above: Expected: 11/12/2024, Expires: Start: 11-12-2024 End: 11-12-2024 Patient encounter procedure 11/12/2024 11:00 AM EST Office Visit Family Medicine [facility] [address] [place] [address] PodlogarAshlyn APRN.WILLOW WORKER [address] [place] [address] Wellness Visit/Coloscopy due LS Family Medicine [facility] Comment on above: Wellness Visit/Coloscopy due LS Start: 10-16-2024 Lipid 1996 panel - Serum or Plasma Lipid Screening [facility] Start: 10-16-2024 LIPID SCREEN LIPID SCREEN [facility] Start: 10-09-2024 Advance Directive Discussion Advance Directive Discussion [facility] Start: 09-15-2024 DIABETES SCREEN DIABETES SCREEN [facility] Start: 09-15-2024 Diabetes Screening Diabetes Screening [facility] Start: 09-13-2024 Mammography Mammogram Screening [facility] Start: 09-13-2024 Screening for malignant neoplasm of breast Mammogram Screening [facility] Start: 07-19-2024 End: 07-19-2024 Patient encounter procedure Family Maria D [place] Comment on above: Wellness Visit/Coloscopy due LS Nonrheumatic mitral valve regurgitation [I34.0] Start: 07-09-2024 End: 05-06-2025 Echocardiography ECHO Cardiology Routine Nonrheumatic mitral valve regurgitation Palpitations Expected: 07/09/2024, Expires: 05/06/2025 [facility] Work Phone: Comment on above: Expected: 07/09/2024, Expires: Start: 06-24-2024 End: 06-24-2024 Follow-up encounter Allergy and Immunolo gy [place] [facility] Comment on above: 6 week follow up ?URTICARIA 6 week fo llow up Start: 06-09-2024 Covid-19 Vaccine () Covid-19 Vaccine () [facility] Start: 06-09-2024 Covid-19 Vaccine ( season) Covid-19 Vaccine ( season) [facility] Start: 06-09-2024 Influenza vaccination Influenza Vaccine (#1) [facility] Start: 05-20-2024 End: 05-20-2024 Patient encounter procedure 05/20/2024 1:40 PM EDT Office Visit [facility] [address] [facility] [place], [place] [phone] Adenike Aj MD [address] [facility] [place] [address] Nodular thyroid disease [E04.1] Endocrinology Comment on above: Nodular thyroid disease [E04.1] Start: 05-13-2024 End: 05-13-2024 Follow-up encounter 05/13/2024 1:00 PM EDT [facility] General Surgery [address] [facility] [place], [place] [id number] Priti Bowser MD [address] [facility] [place] [phone] 1 wk follow up General Surgery Comment on above: 1 wk follow up Start: 05-07-2024 End: 05-07-2024 Patient encounter procedure 05/07/2024 2:30 PM EDT Office Visit Allergy [address] [place], [place] [phone] Katerine Rizo MD [address] [place] [phone] follow up Allergy Comment on above: follow up Start: 05-06-2024 End: 05-06-2024 Patient encounter procedure Cardiology Comment on above: 6 month follow up US gudied FNA- Rt th yroid nodule US guided FNA of rig ht thyroid nodule Start: 04-30-2024 End: 04-30-2024 Patient encounter procedure 04/30/2024 9:30 AM EDT Office Visit General Surgery [address] [place], [place] [phone] Priti Bowser MD [address] [place] [phone] Nodular thyroid disease [E04.1] General Surgery Comment on above: Nodular thyroid disease [E04.1] Start: 04-25-2024 End: 04-25-2024 ambulatory 04/25/2024 10:30 AM EDT Results Only [facility] Station [address] [place] [address] Jaun [facility] Start: 04-24-2024 End: 07-24-2024 Thyrotropin [Units/volume] in Serum or Plasma THYROID STIMULATING HORMONE Lab Routine Nodular thyroid disease Expected: 04/24/2024, Expires: 07/24/2024 [facility] Work Phone: Comment on above: Expected: 04/24/2024, Expires: Start: 04-24-2024 End: 07-24-2024 Thyroxine (T4) free [Mass/volume] in Serum or Plasma T4 FREE/FREE THYROXINE Lab Routine Nodular thyroid disease Expected: 04/24/2024, Expires: 07/24/2024 [facility] Comment on above: Expected: 04/24/2024, Expires: Start: 04-24-2024 End: 07-24-2024 Triiodothyronine (T3) [Mass/volume] in Serum or Plasma T3 Lab Routine Nodular thyroid disease Expected: 04/24/2024, Expires: 07/24/2024 [facility] Comment on above: Expected: 04/24/2024, Expires: 4 Start: 04-19-2024 End: 04-19-2024 Patient encounter procedure 04/19/2024 1:45 PM EDT Appointment Radiology [address] [place] [id number] US THYROID/PARATHYROID Radiology Comment on above: US THYROID/PARATHYROID Start: 11-27-2023 Covid-19 Vaccine () Covid-19 Vaccine () [facility] Start: 10-09-2023 Advance Directive Discussion Advance Directive Discussion [facility] Start: 10-09-2023 Behavioral Health Screening Behavioral Health Screening [facility] Start: 10-09-2023 Depression Assessment Depression Assessment [facility] Start: 08-18-2023 COLOGUARD (FIT-DNA) COLOGUARD (FIT-DNA) [facility] Start: 08-18-2023 Mammography [facility] Start: 08-18-2023 Screening for malignant neoplasm of colon [facility] (FIT-DNA) [facility] Start: 06-30-2023 End: 08-30-2023 Comprehensive metabolic 2000 panel - Serum or Plasma [facility] Work Phone: Comment on above: Expected: 06/30/2023, Expires: 3 Start: 06-30-2023 End: 08-30-2023 LIPID PANEL, NONFASTING [facility] Work Phone: Comment on above: Expected: 06/30/2023, Expires: 3 Start: 06-30-2023 End: 08-30-2023 Magnesium [Mass/volume] in Serum or Plasma [facility] Work Phone: Comment on above: Expected: 06/30/2023, Expires: 3 Start: 06-30-2023 End: 08-30-2023 Thyrotropin [Units/volume] in Serum or Plasma [facility] Work Phone: Comment on above: Expected: 06/30/2023, Expires: 3 Start: 06-09-2023 Covid-19 Vaccine () Covid-19 Vaccine () [facility] Start: 06-09-2023 Influenza vaccination [facility] Start: 10-09-2022 ADVANCE DIRECTIVE DISCUSSION ADVANCE DIRECTIVE DISCUSSION [facility] Start: 10-09-2022 DEPRESSION ASSESSMENT DEPRESSION ASSESSMENT [facility] Start: 08-04-2022 End: 10-04-2022 Fungus identified in Unspecified specimen by Culture FUNGAL SCREEN Microbiology Routine Soreness of tongue Expected: 08/04/2022, Expires: 10/04/2022 [facility] Work Phone: Comment on above: Expected: 08/04/2022, Expires: 2 Start: 06-09-2022 Influenza vaccination [facility] Start: 10-09-2021 ADVANCE DIRECTIVE DISCUSSION ADVANCE DIRECTIVE DISCUSSION [facility] Start: 10-09-2021 DEPRESSION ASSESSMENT DEPRESSION ASSESSMENT [facility] Start: 07-31-2021 Mammography MAMMOGRAM [facility] Start: 06-02-2021 COVID-19 VACCINE (3 - Booster for Pfizer series) COVID-19 VACCINE (3 - Booster for Pfizer series) [facility] Start: 02-25-2021 COVID-19 VACCINE (3 - Booster for Pfizer series) COVID-19 VACCINE (3 - Booster for Pfizer series) [facility] Start: 02-25-2021 COVID-19 VACCINE (3 - Pfizer series) COVID-19 VACCINE (3 - Pfizer series) [facility] Start: 08-19-2020 COLORECTAL CANCER SCREENING COLORECTAL CANCER SCREENING [facility] Start: 08-19-2020 Screening for malignant neoplasm of colon Colorectal Cancer Screening [facility] Start: 11-06-2018 Adult depression screening assessment DEPRESSION SCREENING [facility] Start: 06-04-2018 Colonoscopy COLONOSCOPY [facility] Start: 06-04-2018 Screening for malignant neoplasm of colon Colonoscopy [facility] Start: 12-26-2016 Pneumococcal Vaccine: 65+ (1 - PCV) Pneumococcal Vaccine: 65+ (1 - PCV) [facility] Start: 12-26-2016 Pneumococcal Vaccine: 65+ (1 of 1 - PCV) Pneumococcal Vaccine: 65+ (1 of 1 - PCV) [facility] Start: 12-26-2016 PNEUMOCOCCAL: 65+ (1 - PCV) PNEUMOCOCCAL: 65+ (1 - PCV) [facility] Start: 12-26-2016 Screening for osteoporosis Bone Density Screening [facility] Start: 2011 RSV Vaccine (1 - 1-dose 60+ series) RSV Vaccine (1 - 1-dose 60+ series) [facility] Start: 2011 RSV Vaccine (1 - Risk 60-74 years 1-dose series) RSV Vaccine (1 - Risk 60-74 years 1-dose series) [facility] Start: 12-26-2001 Pneumococcal Vaccine: 50+ (1 of 1 - PCV) Pneumococcal Vaccine: 50+ (1 of 1 - PCV) [facility] Start: 12-26-2001 SHINGRIX VACCINE (1 of 2) SHINGRIX VACCINE (1 of 2) [facility] Start: 12-26-[address] COLONOGRAPHY [facility] Start: 12-26-1996 FECAL OCCULT BLOOD FECAL OCCULT BLOOD [facility] Start: 12-26-1996 Screening for malignant neoplasm of colon [facility] Start: 12-26-1996 SIGMOIDOSCOPY SIGMOIDOSCOPY [facility] Start: 12-26-1969 Anxiety Screening Anxiety Screening [facility] Start: 12-26-1969 Depression Screening Depression Screening [facility] BACTERIAL VAGINOSIS NAAT BACTERI AL VAGINOSIS NAAT Lab Routine Vaginal itching Ordered: 05/04/2024 [facility] Comment on above: Ordered: 05/04/2024 STACEY/TRICHOMONAS NAAT STACEY /TRICHOMONAS NAAT Lab Routine Vaginal itching Ordered: 05/04/2024 [facility] Work Phone: Comment on above: Ordered: 05/04/2024 Clostridioides diffi cile toxin genes [Presence] in Stool by REA with probe detection CLOSTRIDIUM DIFFICILE TOXIN BY PCR Lab Routine Diarrhea, unspecified type Ordered: 12/09/2024 [facility] Comment on above: Ordered: 12/09/2024 COVID & INFLUENZA A/ B & RSV PCR, ROUTINE COVID & INFLUENZA A/B & RSV PCR, ROUTINE Microbiology Routine Nasal congestion 10/14/2024 4:14 PM EST [facility] Work Phone: COVID & INFLUENZA A/ B & RSV PCR, ROUTINE COVID & INFLUENZA A/B & RSV PCR, ROUTINE Microbiology Routine Viral illness Ordered: 12/09/2024 [facility] Comment on above: Ordered: 12/09/2024 CYTOLOGY NON-NURSING ADMINISTRATOR CYTOLOGY NON-GY N Lab Routine Abnormal ultrasound of thyroid gland 05/06/2024 3:37 PM EDT [facility] Work Phone: End: 11-14-2025 DBT Breast - bilateral screening TINO SCREENING W GIANLUAC Radiology Routine Encounter for screening mammogram for breast cancer 1 Occurrences starting 10/15/2024 until 11/14/2025 [facility] Work Phone: Comment on above: 1 Occurrences starting 10/15/2024 until 11/14/2025 End: 12-12-2025 DXA Skeletal system.axial Views for bone density DXA-AXIAL SKELETON Radiology Routine Osteoporosis, unspecified osteoporosis type, unspecified pathological fracture presence 1 Occurrences starting 11/12/2024 until 12/12/2025 [facility] Work Phone: Comment on above: 1 Occurrences starting 11/12/2024 until 12/12/2025 DXA Skeletal system. axial Views for bone density DXA-AXIAL SKELETON Radiology Routine Osteoporosis, unspecified osteoporosis type, unspecified pathological fracture presence 12/06/2024 8:13 AM EST [facility] Work Phone: End: 06-30-2024 ECG COMPLETE ECG COMPLETE ECG Routine Chest pain, unspecified type 1 Occurrences starting 06/30/2023 until 06/30/2024 [facility] Work Phone: Comment on above: 1 Occurrences starting 06/30/2023 until 06/30/2024 End: 06-30-2024 Echocardiography ECHO Cardiology Routine Chest pain, unspecified type Mitral valve insufficiency, unspecified etiology 1 Occurrences starting 06/30/2023 until 06/30/2024 [facility] Work Phone: Comment on above: 1 Occurrences starting 06/30/2023 until 06/30/2024 ENTERIC BACTERIAL PA NOEMÍ BY PCR ENTERIC BACTERIAL PANEL BY PCR Lab Routine Diarrhea, unspecified type Ordered: 12/09/2024 [facility] Comment on above: Ordered: 12/09/2024 End: 06-30-2024 EXERCISE STRESS ECG (WITHOUT IMAGING) EXERCISE STRESS ECG (WITHOUT IMAGING) Cardiology Routine Chest pain, unspecified type 1 Occurrences starting 06/30/2023 until 06/30/2024 [facility] Work Phone: Comment on above: 1 Occurrences starting 06/30/2023 until 06/30/2024 End: 08-16-2024 TINO SCREENING TINO SCREENING Radiology Routine Encounter for screening mammogram for breast cancer 1 Occurrences starting 07/18/2023 until 08/16/2024 [facility] Work Phone: Comment on above: 1 Occurrences starting 07/18/2023 until 08/16/2024 TINO SCREENING TINO SCREENING Radiology Routine Encounter for screening mammogram for breast cancer 09/13/2023 11:15 AM EST [facility] Work Phone: Ova and parasites identified in Unspecified specimen by Light microscopy OVA + PARA MICROSCOPIC Microbiology Routine Diarrhea, unspecified type Ordered: 12/09/2024 [facility] Work Phone: Comment on above: Ordered: 12/09/2024 PT PLAN OF CARE CERTIFICATION PT PLAN OF CARE CERTIFICATION Procedures Routine Lumbar pain Left hip pain Ordered: 11/15/2022 [facility] Comment on above: Ordered: 11/15/2022 End: 11-16-2023 Radex spine lumbosacral 2/3 views XR LUMBAR GENERAL 3V AP/LAT/L5-S1 Radiology Routine Lumbar pain 1 Occurrences starting 10/17/2022 until 11/16/2023 [facility] Work Phone: Comment on above: 1 Occurrences starting 10/17/2022 until 11/16/2023 Radex spine lumbosac ral 2/3 views XR LUMBAR GENERAL 3V AP/LAT/L5-S1 Radiology Routine Lumbar pain 10/17/2022 3:40 PM EST [facility] Work Phone: End: 07-29-2024 Radiologic exam chest 2 views XR CHEST 2V FRONTAL/LAT Radiology Routine Chest pain, unspecified type 1 Occurrences starting 06/30/2023 until 07/29/2024 [facility] Work Phone: Comment on above: 1 Occurrences starting 06/30/2023 until 07/29/2024 Radiologic exam ches t 2 views XR CHEST 2V FRONTAL/LAT Radiology Routine Chest pain, unspecified type 06/30/2023 11:37 AM EDT [facility] Work Phone: End: 10-26-2024 Screening colonoscopy COLONOSCOPY SCREENING Endoscopy Routine Encounter for screening for malignant neoplasm of colon 1 Occurrences starting 10/26/2023 until 10/26/2024 [facility] Work Phone: Comment on above: 1 Occurrences starting 10/26/2023 until 10/26/2024 Screening colonoscopy COLONOSCOP Y SCREENING Endoscopy Routine Encounter for screening for malignant neoplasm of colon 12/07/2023 9:58 AM EST [facility] STREP A MOLECULAR (POC) STREP A MOLECULAR (POC) Microbiology Routine Sore throat Ordered: 03/23/2024 [facility] Work Phone: Comment on above: Ordered: 03/23/2024 End: 03-16-2026 US Abdomen RUQ US ABD RIGHT UPPER QUADRANT Radiology Routine Generalized abdominal pain 1 Occurrences starting 02/14/2025 until 03/16/2026 [facility] Work Phone: Comment on above: 1 Occurrences starting 02/14/2025 until 03/16/2026 End: 04-29-2025 US Thyroid gland US THYROID/PARATHYROID Radiology Routine Nodular thyroid disease 1 Occurrences starting 03/30/2024 until 04/29/2025 [facility] Work Phone: Comment on above: 1 Occurrences starting 03/30/2024 until 04/29/2025 US Thyroid gland US THYROID/PARA THYROID Radiology Routine Nodular thyroid disease 04/19/2024 2:31 PM EDT [facility] Work Phone: End: 11-16-2023 XR HIP GENERAL 3V PELV/AP/LAT LEFT XR HIP GENERAL 3V PELV/AP/LAT LEFT Radiology Routine Left hip pain 1 Occurrences starting 10/17/2022 until 11/16/2023 [facility] Work Phone: Comment on above: 1 Occurrences starting 10/17/2022 until 11/16/2023 XR HIP GENERAL 3V PELV/AP/LAT LEFT XR HIP GENERAL 3V PELV/AP/LAT LEFT Radiology Routine Left hip pain 10/17/2022 3:40 PM EST [facility] Work Phone: [facility] Immunizations Immunization Date Immunization Notes Care Provider Shabbir louis 09-13-2023 influenza (HD-IIV4) vaccine, age 65+ yr, high dose, quadrivalent, PF (FLUZONE HIGH-DOSE) Mammography Coordinator [facility] 09-13-2023 influenza virus vaccine, unspecified formulation Us 1 Work Phone: [facility] 07-27-2023 COVID-19 vaccine, ag e 12+ yr, 2022- season (MODERNA) Screen Wstr [facility] 12-31-2020 Covid (Pfizer) [facility] Work Phone: 12-10-2020 Covid (Pfizer) [facility] Work Phone: 07-20-2020 influenza virus vaccine, unspecified formulation Kieran West MD Work Phone: [facility] 09-04-2019 tetanus toxoid, reduced diphtheria toxoid, and acellular pertussis vaccine, adsorbed Kieran West MD Work Phone: [facility] 08-05-2019 influenza, high dose seasonal, preservative-free Kieran West MD Work Phone: [facility] Work Phone: 08-16-2018 influenza, high dose seasonal, preservative-free Kieran West MD Work Phone: [facility] Work Phone: Payers Date Payer Category Payer Self-pay [id number] 2021 Medicare AETNA MEDICARE A ETNA MEDICARE PPO [id number] 2021-Present [phone] [address] [place] [address] PPO [id number] 2021 Medicare AETNA MEDICARE A ETNA MEDICARE PPO [id number] 2021-Present [phone] [address] [place] [address] PPO [id number] 2021 Medicare (Managed Care) [employer] [place] [id number] 2021 Private Health Insurance 101 [id number] Medicare MEDICARE PART A B [id number] Unknown KRISTYN [id number] Unknown [id number] Unknown [id number] Social History Date Type Detail Facility Start: 07-23-2022 Tobacco smoking status NHIS Never smoked tobacco [facility] Start: 03-17-2022 End: 02-14-2025 Alcohol intake Current drinker of alcohol (finding) [facility] Start: 1950 Sex Assigned At Not on file [facility] Start: 03-07-2022 End: 08-18-2022 Exposure to SARS-CoV-2 (event) Not sure [facility] Start: 07-23-2022 Tobacco use and exposure Smokeless tobacco non-user [facility] Start: 12-03-2020 Tobacco smoking status NHIS Unknown if ever smoked [facility] Work Phone: Start: 12-03-2020 Spouse/ Significant Other [facility] Work Phone: Start: 1950 Sex Assigned At Female [facility] Work Phone: Start: 03-17-2023 End: 04-20-2023 History of Social function [facility] Start: 03-17-2023 End: 04-20-2023 Tobacco use panel [facility] Adult Depression Screening Assessment 0 [facility] Has the Qurater, or water [employer] threatened to shut off services in your home in past 12Mo No [facility] Do you belong to any clubs or organizations such as taoist groups, unions, fraArtabase or athletic groups, or school groups? Yes [facility] Are you now , , , , never or living with a partner? [facility] How often to you hav e a drink containing alcohol? Monthly or less [facility] How many standard dr inks containing alcohol do you have on a typical day? 1 or 2 [facility] How often do you hav e 6 or more drinks on 1 occasion? Never [facility] Do you feel stress - tense, restless, nervous, or anxious, or unable to sleep at night because your mind is troubled all the time - these days [OSQ] Only a little [facility] (I/We) worried jeannie er (my/our) food would run out before (I/we) got money to buy more. Never true [facility] Functional Status Date Assessment Result Facility 03-18-2015 Are you deaf, or do you have serious difficulty hearing No 03/18/2015 11:16 AM Una Dalton Ma [facility] 03-18-2015 Are you blind, or do you have serious difficulty seeing, even when wearing glasses No 03/18/2015 11:16 AM Una Dalton Ma [facility] 03-18-2015 Do you have serious difficulty walking or climbing stairs No 03/18/2015 11:16 AM Una Dalton Ma [facility] 03-18-2015 Do you have difficul ty dressing or bathing No 03/18/2015 11:16 AM Una Dalton Ma [facility] 03-18-2015 Because of a physica l, mental, or emotional condition, do you have difficulty doing errands alone such as visiting a physician's office or shopping No 03/18/2015 11:16 AM Una Dalton Ma [facility] Mental Status Date Assessment Result Facility 03-18-2015 Because of a physica l, mental, or emotional condition, do you have serious difficulty concentrating, remembering, or making decisions No 03/18/2015 11:16 AM EDT Una Dahl Ma [facility] Clinical Notes 03-17-2022 to 06-25-2025 Telephone Encounter - Perry Bautista MD - 05/08/2025 12:34 PM EDTTelephone Encounter - Perry Bautista MD - 05/08/2025 12:34 PM EDTPatient InstructionsPatient Instructions Note Date & Type Note Facility 06-25-2025 Note HNO ID: [id number] Author: ?, ?, ? Service: ? Author Type: ? Type: Progress Notes Filed: 06/25/2025 14:48 Note Text: POPULATION HEALTH NAVIGATION OUTREACH Action/ - HCC Colon: Overdue since 08/19/2020 Flu: Due for dose 1 since 06/09/2025 Tino: Due soon on 11/08/2025 ----- Called Patient: Unable to leave message, [employer] Sent Updated appt notes to address HCC/Care Gap Reason for Outreach Care Gap/HCC or Scheduling Wellness Visits Care Gaps due: Breast Cancer Screening Colorectal Cancer Screening Flu Vaccine Patient Contacted: Unable or unnecessary to reach patient: Unable to leave message [employer] message sent Updated appointment notes Navigation Signature: Wilber Sarmiento June 25, 2025 2:45 PM [facility] 06-25-2025 Note Patient Outreach (JUAN TNAV) LAURYN BANG ([id number]) 1950 F Date Time Provider Department 06/25/25 PERRY BAUTISTA During your visit today, we recorded the following information about you: Wilber Sarmiento 06/25/2025 2:48 PM Signed POPULATION HEALTH NAVIGATION OUTREACH Action/I - 0 HCC Colon: Overdue since 08/19/2020 Flu: Due for dose 1 since 06/09/2025 Tino: Due soon on 11/08/2025 ----- Called Patient: Unable to leave message, [employer] Sent Updated appt notes to address HCC/Care Gap Reason for Outreach Care Gap/HCC or Scheduling Wellness Visits Care Gaps due: Breast Cancer Screening Colorectal Cancer Screening Flu Vaccine Patient Contacted: Unable or unnecessary to reach patient: Unable to leave message Cook123 message sent Updated appointment notes Navigation Signature: [...] Encounter Status:Closed by WILBER SARMIENTO on 06/25/25 [facility] 05-14-2025 Note HNO ID: [id number] Author: REGINE KAPOOR MA Service: ? Author Type: Production Illustrator Type: Progress Notes Filed: 05/14/2025 12:42 Note Text: POPULATION HEALTH NAVIGATION OUTREACH Action/05.14.25 Appointments/HM Care gaps to address: ~Colorectal cancer screening ~Screening mammogram due 11/09/25 or after Outcome: ~Left voicemail with my direct number and sent Tawkershart message Reason for Outreach Care Gap/HCC or Scheduling Wellness Visits Care Gaps due: Breast Cancer Screening Colorectal Cancer Screening Patient Contacted: Unable or unnecessary to reach patient: Left message MyChart message sent Navigation Signature: Regine Kapoor MA May 14, 2025 12:33 PM [facility] 05-14-2025 Note Patient Outreach (NE TNAV) LAURYN BANG ([id number]) 1950 F Date Time Provider Department 05/14/25 REGINE KAPOOR During your visit today, we recorded the following information about you: Regine Kapoor MA 05/14/2025 12:42 PM Signed POPULATION HEALTH NAVIGATION OUTREACH Action/05.14.25 Appointments/HM Care gaps to address: ~Colorectal cancer screening ~Screening mammogram due 11/09/25 or after Outcome: ~Left voicemail with my direct number and sent Cook123 message Reason for Outreach Care Gap/HCC or Scheduling Wellness Visits Care Gaps due: Breast Cancer Screening Colorectal Cancer Screening Patient Contacted: Unable or unnecessary to reach patient: Left message Cook123 message sent Navigation Signature: Regine Kapoor MA [...] Encounter Status:Closed by REGINE KAPOOR on 05/14/25 [facility] 05-08-2025 Telephone encounter Note Rx sent. Please have patient update our office in about 2 weeks on her pain. [facility] 05-08-2025 Miscellaneous Notes Rx sent. Please [...] for her pain? documented in this encounter [facility] 05-08-2025 Telephone encounter Note Please see pt reply Dee Blackwell MA [facility] 05-08-2025 Telephone encounter Note If she [...] trying this new medication for her pain? [facility] 04-29-2025 Instructions Perry Bautista MD - 04/29/2025 9:32 AM EDT - Begin amitriptyline 10 mg by mouth at bedtime each night; prescription has been sent to [facility] in [place]. - After one week on amitriptyline, call [...] at this time. documented in this encounter [facility] 04-29-2025 Note HNO ID: [id number] Author: PERRY BAUTISTA MD Service: ? Author Type: Physician Type: Progress Notes Filed: 04/29/2025 09:33 Note Text: Chief Complaint Patient presents with: Follow Up: Discuss results Recording using SMATOOS software for draft documentation of the visit was discussed with the patient/authorized promotional representative; all questions welcomed and answered. Patient/authorized promotional representative agreed to proceed HPI Lauryn Bang [...] 05/06/2024 UNSPECIFIED ORAL SURGERY PROCEDURE, BY REPORT [place] teeth extracted UNSPECIFIED ORAL SURGERY PROCEDURE, BY [...] kg/m? General Appearan (more content not included)... [facility] 04-29-2025 History of Present illness Narrative Chief Complaint Patient presents with: Follow Up: Discuss results Recording using SMATOOS software for draft documentation of the visit was discussed with the patient/authorized promotional representative; all questions welcomed and answered. Patient/authorized promotional representative agreed to proceed HPI Lauryn Bang [...] 05/06/2024 UNSPECIFIED ORAL SURGERY PROCEDURE, BY REPORT [place] teeth extracted UNSPECIFIED ORAL SURGERY PROCEDURE, BY [...] Lymph 1.00 - 4.00 k/uL 2.30 2.30 [place]% % 6.6 7.7 Abs [place] <0.87 k/uL 0.36 0.43 [place]% % 3.5 [...] Perry Bautista MD documented in this encounter [facility] 04-28-2025 Telephone encounter Note Pharmacy electronically requests the following refill(s) Requested Prescriptions Pending Prescriptions Disp Refills metoprolol succinate ER (TOPROL XL) 25 mg 24 hr tablet [Pharmacy Med Name: METOPROLOL SUCC ER 25 MG TAB] 90 tablet 3 Sig: TAKE 1 TABLET BY MOUTH EVERY DAY Octavia Kim RN [facility] 04-28-2025 Miscellaneous Notes Pharmacy electronically requests the following refill(s) Requested Prescriptions Pending Prescriptions Disp Refills metoprolol succinate ER (TOPROL XL) 25 mg 24 hr tablet [Pharmacy Med Name: METOPROLOL SUCC ER 25 MG TAB] 90 tablet 3 Sig: TAKE 1 TABLET BY MOUTH EVERY DAY Octavia Kim RN documented in this encounter [facility] 03-26-2025 Telephone encounter Note I am not sure what she means about other options beside surgery for her abdominal pain. Recommend OV if symptoms are persistent. Please assist with scheduling. I have openings tomorrow morning. [facility] Work Phone: 03-26-2025 Miscellaneous Notes I am not sure what she means about other options beside surgery for her abdominal pain. Recommend OV if symptoms are persistent. Please assist with scheduling. I have openings tomorrow morning. documented in this encounter [facility] 03-24-2025 History of Present illness Narrative [...] PATIENT PRESENTS WITH AN IMPLANTABLE OR ATTACHED SURFACER OPERATOR: n/a CREATININE: Creatinine Date Value Ref Range [...] PM. PATIENT DISCHARGED TO: Ambulatory patient, left CT department area. Is this a therapy: No A Diagnostic radioactive procedure has taken place, with no further precautions necessary other than routine body substance precautions. More information regarding radiation safety can be found using this link: [email or web address] [email or web address]%20Nucl ear%20Medicine%20Procedures.[email or web address] SIGNATURE: KRISTEL Wolf) PATIENT NAME: Lauryn Bang DATE: March 24, 2025 TIME: 3:02 PM PAGER/CONTACT #: documented in this encounter [facility] 03-24-2025 Note HNO ID: [id number] Author: TISH MINAYA RT (R) Service: Nuclear [...] PATIENT PRESENTS WITH AN IMPLANTABLE OR ATTACHED SURFACER OPERATOR: n/a CREATININE: Creatinine Date Value Ref Range [...] PM. PATIENT DISCHARGED TO: Ambulatory patient, left CT department area. Is this a therapy: No A Diagnostic radioactive procedure has taken place, with no further precautions necessary other than routine body substance precautions. More information regarding radiation safety can be found using this link: [email or web address] [email or web address]-% 20Diagnostic%20Nuclear%20Medicine %20Procedures.pdf SIGNATURE: RT Maryann(Gonzalez) PATIENT NAME: Lauryn Bang DATE: March 24, 2025 TIME: 3:02 PM PAGER/CONTACT #: [facility] 02-25-2025 Note HNO ID: [id number] Author: ALICIA POLANCO RDMS Service: ? Author Type: Hat Block Maker Type: Progress Notes Filed: 02/26/2025 11:43 Note Text: Radiology Service Progress Note PATIENT NAME: Lauryn aBng DATE OF SERVICE: February 26, 2025 TIME: [...] PATIENT PRESENTS WITH AN IMPLANTABLE OR ATTACHED SURFACER OPERATOR: No RADIOLOGY DEPARTMENT: Ultrasound PERIPHERAL IV DATA: Not applicable SIGNED BY: Alicia Polanco RDMS RVT February 26, 2025 11:43 AM [facility] 02-14-2025 Note HNO ID: [id number] Author: FANTA TRAMMELL APRN.WILLOW WORKER Service: ? Author Type: Nurse Practitioner Type: [...] her daughter's colorectal cancer treatment and her oqpldc-de-elx's hospitalizations. Her medications were reviewed today and [...] 2 seconds. Neurolo (more content not included)... [facility] 02-14-2025 History of Present illness Narrative [...] her daughter's colorectal cancer treatment and her qwoiby-jf-jlm's hospitalizations. Her medications were reviewed today and [...] ultrasound to evaluate gallbladder function. - Initiate mqcn-vfo-tmtxqtp Prilosec to reduce gastric irritation. 3. Other [...] appointment.. BRUNO Nguyen documented in this encounter [facility] 02-13-2025 Telephone encounter Note Patient given results and verbalized understanding of instructions given. Vidhya Robledo MA [facility] 02-13-2025 Miscellaneous Notes Patient given results and verbalized understanding of instructions given. Vidhya Robledo MA Please inform patient labs were normal. Follow-up with PCP as scheduled tomorrow. documented in this encounter [facility] 02-13-2025 Telephone encounter Note Please inform patient labs were normal. Follow-up with PCP as scheduled tomorrow. [facility] 02-13-2025 Note HNO ID: [id number] Author: DINH BARKSDALE APRN.CNP Service: ? Author [...] 05/06/2024 UNSPECIFIED ORAL SURGERY PROCEDURE, BY REPORT [place] teeth extracted UNSPECIFIED ORAL SURGERY PROCEDURE, BY [...] and neck supp (more content not included)... [facility] 02-13-2025 History of Present illness Narrative [...] 05/06/2024 UNSPECIFIED ORAL SURGERY PROCEDURE, BY REPORT [place] teeth extracted UNSPECIFIED ORAL SURGERY PROCEDURE, BY [...] of care. This note was generated using Comunitae software. It may contain errors in wording, punctuation, or spelling. Dinh Barksdale APRN.WILLOW WORKER documented in this encounter [facility] 01-17-2025 Note HNO ID: [id number] Author: ASHLYN KEITA APRN.[facility] Service: ? Author Type: Nurse Practitioner [...] which included preparing to see the patient, homl-cr-obnf patient care, completing clinical documentation, obtaining and/or reviewing separately obtained history, performing a medically appropriate examination, counseling and educating the patient/family/caregiver, and ordering medications, tests, or procedures. [facility] 01-17-2025 History of Present illness Narrative [...] which included preparing to see the patient, vtsx-sj-ezbf patient care, completing clinical documentation, obtaining and/or reviewing separately obtained history, performing a medically appropriate examination, counseling and educating the patient/family/caregiver, and ordering medications, tests, or procedures. documented in this encounter [facility] 01-06-2025 Note HNO ID: [id number] Author: WANDA GAN APRN.CURRICULUM DEVELOPER Service: ? Author Type: Nurse Specialist Type: [...] Medical Decision Making Level: 3 - Low [facility] 01-06-2025 History of Present illness Narrative [...] 3 - Low documented in this encounter [facility] 12-24-2024 Note Addended by: REGINE IVEY on: 12/24/2024 11:01 AM Modules accepted: Orders [facility] 12-24-2024 Miscellaneous Notes Addended by: REGINE IVEY on: 12/24/2024 11:01 AM Modules accepted: Orders documented in this encounter [facility] 12-24-2024 Note HNO ID: [id number] Author: REGINE IVEY APRN.AYAH Service: ? Author [...] 05/06/2024 UNSPECIFIED ORAL SURGERY PROCEDURE, BY REPORT [place] teeth extracted UNSPECIFIED ORAL SURGERY PROCEDURE, BY [...] - GABAPENTIN 100 MG CAPSULE Regine Ivey APRN.[facility] 12-24-2024 History of Present illness Narrative Chief [...] 05/06/2024 UNSPECIFIED ORAL SURGERY PROCEDURE, BY REPORT [place] teeth extracted UNSPECIFIED ORAL SURGERY PROCEDURE, BY [...] - GABAPENTIN 100 MG CAPSULE Regine Ivey APRN.WILLOW WORKER documented in this encounter [facility] 12-10-2024 Telephone encounter Note Patient viewed in Grapewordt. Vidhya Robledo MA [facility] 12-10-2024 Miscellaneous Notes Patient viewed in Grapeword[employer]. Vidhya Robledo MA Please advise patient: You [...] for 24 hours. documented in this encounter [facility] 12-10-2024 Telephone encounter Note Please advise [...] home until fever free for 24 hours. [facility] Work Phone: 12-09-2024 Note SARS-COV-2 (AGENT OF COVID-19) RNA: Not detected INFLUENZA A RNA: Detected INFLUENZA B RNA: Not detected RESPIRATORY SYNCYTIAL VIRUS (RSV) RNA: Not detected [facility] Comment on above: Performed By: #### 9 [id number] ####[facility] LABCLIA [id number] [place] [address] [place] 12-09-2024 History of [...] PATIENT PRESENTS WITH AN IMPLANTABLE OR ATTACHED SURFACER OPERATOR: No RADIOLOGY DEPARTMENT: General X-ray: Exam(s) Completed: Chest X-Ray PERIPHERAL IV DATA: Not applicable SIGNED BY: RT Zina(R) December 09, 2024 3:39 PM documented in this encounter [facility] 12-09-2024 Note HNO ID: [id number] Author: MARIELA LUDWIG RT(R) Service: ? Author Type: Bridge Gang Worker Type: Progress Notes Filed: 12/09/2024 15:46 Note [...] PATIENT PRESENTS WITH AN IMPLANTABLE OR ATTACHED SURFACER OPERATOR: No RADIOLOGY DEPARTMENT: General X-ray: Exam(s) Completed: Chest X-Ray PERIPHERAL IV DATA: Not applicable SIGNED BY: RT Zina(R) December 09, 2024 3:39 PM [facility] 12-09-2024 Note HNO ID: [id number] Author: DINH BARKSDALE APRN.WILLOW WORKER Service: ? Author Type: Nurse Practitioner Type: [...] 05/06/2024 UNSPECIFIED ORAL SURGERY PROCEDURE, BY REPORT [place] teeth extracted UNSPECIFIED ORAL SURGERY PROCEDURE, BY [...] warm and dry. (more content not included)... [facility] 12-09-2024 History of Present illness Narrative [...] 05/06/2024 UNSPECIFIED ORAL SURGERY PROCEDURE, BY REPORT [place] teeth extracted UNSPECIFIED ORAL SURGERY PROCEDURE, BY [...] of care. This note was generated using Comunitae software. It may contain errors in wording, punctuation, or spelling. Dinh Barksdale APRN.WILLOW WORKER documented in this encounter [facility] 12-06-2024 History of Present illness Narrative [...] PATIENT PRESENTS WITH AN IMPLANTABLE OR ATTACHED SURFACER OPERATOR: No RADIOLOGY DEPARTMENT: Bone Density PERIPHERAL IV DATA: Not applicable SIGNED BY: RT Kathleen(R) December 06, 2024 7:46 AM documented in this encounter [facility] 12-06-2024 Note HNO ID: [id number] Author: JOSY LUGO RT(R) Service: ? Author [...] PATIENT PRESENTS WITH AN IMPLANTABLE OR ATTACHED SURFACER OPERATOR: No RADIOLOGY DEPARTMENT: Bone Density PERIPHERAL IV DATA: Not applicable SIGNED BY: RT Kathleen(Gonzalez) December 06, 2024 7:46 AM [facility] 11-30-2024 Telephone encounter Note Phoned patient went over results from Dr Bautista with understanding. [facility] 11-30-2024 Miscellaneous Notes Phoned patient went over results from Dr Bautista with understanding. ----- Message from Perry Bautista MD sent at 11/28/2024 2:28 PM EST ----- Normal labs. documented in this encounter [facility] 11-30-2024 Telephone encounter Note ----- Message from Perry Bautista MD sent at 11/28/2024 2:28 PM EST ----- Normal labs. [facility] 11-18-2024 Instructions Bety Iglesias MD - 11/18/2024 10:41 AM EST We will repeat an echocardiogram in early Oct documented in this encounter [facility] 11-18-2024 History of Present illness Narrative Images from the original note were not included. [facility] SECTION [facility] REGIONAL CARDIOLOGY Cardiology ([facility]) [address] [facility] [id number] OUTPATIENT VISIT DATE 11/18/2024 PRIMARY CARE PHYSICIAN: Ashlyn Keita [address] [place] [id number] REFERRING PHYSICIAN: Ashlyn Keita [address] [facility] [address] HISTORY OF PRESENT ILLNESS: Ms. Bang is [...] 05/06/2024 UNSPECIFIED ORAL SURGERY PROCEDURE, BY REPORT [place] teeth extracted UNSPECIFIED ORAL SURGERY PROCEDURE, BY [...] rare (<1.0%). Isolated VEs were occasional (4.7%, [id number]), VE Couplets were rare (<1.0%, 31), and [...] Bety Iglesias MD documented in this encounter [facility] 11-18-2024 Note HNO ID: [id number] Author: BETY IGLESIAS MD Service: ? Author Type: Physician Type: Progress Notes Filed: 11/18/2024 10:48 Note Text: [facility] REGIONAL CARDIOLOGY Cardiology ([address]) [address] [facility] [id number] OUTPATIENT VISIT DATE 11/18/2024 PRIMARY CARE PHYSICIAN: Ashlyn Keita [address] [place] [address] REFERRING PHYSICIAN: Ashlyn Gundersonlogchloé [address] [place] [address] HISTORY OF PRESENT ILLNESS: Ms. Bang is [...] 05/06/2024 UNSPECIFIED ORAL SURGERY PROCEDURE, BY REPORT [place] teeth extracted UNSPECIFIED ORAL SURGERY PROCEDURE, BY [...] normal in s (more content not included)... [facility] 11-13-2024 Telephone encounter Note Patient telephoned and made aware of results and recommendations below. Voices understanding. Adamaris Goetz LPN [facility] 11-13-2024 Miscellaneous Notes Patient telephoned and made aware of results and recommendations below. Voices understanding. Adamaris Goetz LPN Calcium and potassium slightly elevated. This may be lab error however I would like her to have this recheck in the next couple of weeks. The rest of her blood work is in acceptable ranges. Ashlyn Keita APRN.AYAH documented in this encounter [facility] 11-13-2024 Telephone encounter Note Calcium and potassium slightly elevated. This may be lab error however I would like her to have this recheck in the next couple of weeks. The rest of her blood work is in acceptable ranges. Ashlyn Keita APRN.WILLOW WORKER [facility] 11-12-2024 History of Present illness Narrative [...] General (Family Medicine) Ashlyn Keita APRN.CNP as Fsr (Family Medicine) Dr. Iglesias ( cardiology) Sheela [...] to treatment plan. documented in this encounter [facility] 11-12-2024 Note HNO ID: [id number] Author: ASHLYN KEITA APRN.CNP Service: ? Author [...] General (Family Medicine) Podlogar, NEPTALI Goldberg.AYAH as Fsr (Family Medicine) Dr. Iglesias ( cardiology) Sheela [...] symptoms occur. Patient agreeable to treatment plan. [facility] 11-12-2024 Instructions Ashlyn Keita APRN.CNP - [...] usual activities immediately. documented in this encounter [facility] 11-11-2024 Telephone encounter Note Pt notified of results via [employer]. Nori Valenzuela Ma [facility] 11-11-2024 Miscellaneous Notes Pt notified of results via [employer]. Nori Valenzuela Ma ----- Message from Perry Bautista MD sent at 11/10/2024 2:14 PM EST ----- Negative mammogram. Repeat in 1 year. documented in this encounter [facility] 11-11-2024 Telephone encounter Note ----- Message from Perry Bautista MD sent at 11/10/2024 2:14 PM EST ----- Negative mammogram. Repeat in 1 year. [facility] 11-08-2024 History of Present illness Narrative [...] PATIENT PRESENTS WITH AN IMPLANTABLE OR ATTACHED SURFACER OPERATOR: No RADIOLOGY DEPARTMENT: Mammography PERIPHERAL IV DATA: Not applicable SIGNED BY: Lali Anders November 08, 2024 11:17 AM documented in this encounter [facility] 11-08-2024 Note HNO ID: [id number] Author: CANDY BHATT Mammo Tech Service: ? Author Type: Bridge Gang Worker Type: Progress Notes Filed: 11/08/2024 11:19 Note [...] PATIENT PRESENTS WITH AN IMPLANTABLE OR ATTACHED SURFACER OPERATOR: No RADIOLOGY DEPARTMENT: Mammography PERIPHERAL IV DATA: Not applicable SIGNED BY: aLli Anders November 08, 2024 11:17 AM [facility] 10-15-2024 Telephone encounter Note Phoned patient went over notes below from Dr Bautista with understanding. [facility] 10-15-2024 Miscellaneous Notes Phoned patient went [...] Ayanna Borjas LPN documented in this encounter [facility] 10-15-2024 Telephone encounter Note Based on her reported symptoms and length of illness, I would not treat her for sinus infection at this time. I would have her continue supportive care as discussed in EC and f/u in 1 week if not improving. May use OTC flonase, nasal saline rinses, or neti pot for nasal congestion and runny nose. [facility] Work Phone: 10-15-2024 Telephone encounter Note [...] Please review and advise. Ayanna Borjas LPN [facility] 10-15-2024 Note Patient Outreach (IN TMMN) LAURYN BNAG ([id number]) 1950 F Date Time Provider Department 10/15/24 [...] Date Reviewed: 10/14/2024 Reviewed by: Rojas Kelly APRN.WILLOW WORKER - Fully Assessed Visit Diagnosis:Encounter for screening mammogram for breast cancer [Z12.31] Order(s):[facility] [[id number]] Order #: [id number] FUTURE Prescriptions as of 10/18/2024 - metoprolol [...] for malignant neoplasm *12/07/2023 Encounter Status:Closed by Aptible, PRODUSER on 10/18/24 [facility] 10-14-2024 Note HNO ID: [id number] Author: ROJAS KELLY APRN.WILLOW WORKER Service: ? Author Type: Nurse Practitioner Type: Progress Notes Filed: 10/14/2024 15:45 Note Text: This note was created using [employer]. Subjective Lauryn Bang is a 73 year [...] treatment of either. Will continue to use yqpx-fkc-yvcpqnl cough and cold medications and follow-up with PCP as needed. - COVID AND INFLUENZA A/B AND RSV PCR, ROUTINE Rojas Kelly APRN.[facility] 10-14-2024 History of Present illness Narrative This note was created using [employer]. Subjective Lauryn Bang is a 73 year [...] treatment of either. Will continue to use pgei-eah-xuryhmn cough and cold medications and follow-up with PCP as needed. - COVID & INFLUENZA A/B & RSV PCR, ROUTINE Rojas Kelly APRN.WILLOW WORKER documented in this encounter [facility] 06-24-2024 History of Present illness Narrative VIRTUAL VISIT PROGRESS NOTE This is a virtual visit using [employer] Video Visit. It required patient-provider interaction for the medical decision making as documented below. I have communicated my name and active licensure. The patient's identity and physical location were verified at the time of this visit. Either the patient or their legal promotional representative has been informed of the risks [...] 05/06/2024 UNSPECIFIED ORAL SURGERY PROCEDURE, BY REPORT [place] teeth extracted UNSPECIFIED ORAL SURGERY PROCEDURE, BY [...] Katerine Rizo MD documented in this encounter [facility] 05-30-2024 Telephone encounter Note Patient called in. Message below given from Dr. Bowser. The patient verbalized understanding. [facility] 05-30-2024 Miscellaneous Notes Patient called in. [...] one year, thanks documented in this encounter [facility] 05-29-2024 Telephone encounter Note Attempted to contact patient. No answer and no identifying information on voicemail message. Left generic message to please contact the office. Maryanne Ramos RN May 29, 2024 9:15 AM [facility] 05-29-2024 Telephone encounter Note ----- Message from Priti Bowser MD sent at 05/28/2024 3:37 PM EDT ----- Please let patient know that Afirma test was negative for malignancy. I would recommend US thyroid in one year, thanks [facility] 05-24-2024 Telephone encounter Note . [facility] 05-24-2024 Telephone encounter Note Images from the original note were not included. Priti Bowser MD Archuleta, Rhonda, RN Please let patient know that findings show <4% risk for cancer and recommendations for US thyroid in one year, thanks! Tawkershart message sent to patient. Maryanne Ramos RN May 24, 2024 3:54 PM [facility] 05-24-2024 Miscellaneous Notes . documented in this encounter [facility] 05-24-2024 Miscellaneous Notes Images from the original note were not included. Priti Bowser MD Archuleta, Rhonda, RN Please let patient know that findings show <4% risk for cancer and recommendations for US thyroid in one year, thanks! Tawkershart message sent to patient. Maryanne Ramos RN May 24, 2024 3:54 PM documented in this encounter [facility] 05-21-2024 Telephone encounter Note Scan on 05/06/2024 by ProviderRonal, PA-C: Genetics Patient had virtual visit on 05/13/24, but Afirma results were not available. You advised you would call her with the results. Maryanne Ramos RN [facility] 05-21-2024 Miscellaneous Notes Scan on 05/06/2024 by Provider External, PA-C: Genetics Patient had virtual visit on 05/13/24, but Afirma results were not available. You advised you would call her with the results. Maryanne Ramos RN documented in this encounter [facility] 05-13-2024 History of Present illness Narrative VIRTUAL VISIT FOLLOW UP Lauryn Bang [id number] 1950 has requested a video telemedicine follow-up [...] UNSPECIFIED ORAL SURGERY PROCEDURE, BY REPORT Comment: [place] teeth extracted 12/2016: UNSPECIFIED ORAL SURGERY PROCEDURE, [...] will refer patient to thyroid surgeon at [facility]. Patient acknowledges the above. I spent a total of minutes on the date of the service which included preparing to see the patient, [id number] patient care, completing clinical documentation, counseling and educating the patient/family/caregiver, communicating with other HCPs (not separately reported), and care coordination (not separately reported). Unrelated to E/M, telemedicine, or virtual visit service provided within previous 7 days. No E/M service or procedure anticipated within next 24 hours. Priti Bowser MD May 13, 2024 12:56 PM documented in this encounter [facility] 05-07-2024 Instructions Katerine Rizo MD - 05/07/2024 2:52 PM EDT - Prednisone burst with taper - Take Tylenol as needed, avoid NSAIDs (Ibuprofen, Naproxen) - Start Fexofenadine (Generic Lila) 180mg twice daily - Start Famotidine (Generic Pepcid) 20mg twice daily documented in this encounter [facility] 05-07-2024 History of Present illness Narrative [facility] Allergy & Immunology Established Visit PATIENT [...] local anesthetic is used On 12/17/2010- her Heat Set Operator documented that she is not allergic to [...] cyst UNSPECIFIED ORAL SURGERY PROCEDURE, BY REPORT [place] teeth extracted UNSPECIFIED ORAL SURGERY PROCEDURE, BY [...] which included preparing to see the patient, bkzi-vy-hzje patient care, completing clinical documentation, obtaining and/or reviewing separately obtained history, performing a medically appropriate examination, counseling and educating the patient/family/caregiver, and ordering medications, tests, or procedures. Katerine Rizo MD documented in this encounter [facility] 05-06-2024 Instructions Nahomy Jennings LPN - [...] you have any questions or concerns @ [phone]. Please make an appointment to follow up in one week with your physician and thank you for choosing the [facility] Jaun. documented in this encounter [facility] 05-06-2024 History of Present illness Narrative [...] acknowledges the above. documented in this encounter [facility] 05-06-2024 Nurse Note UNIVERSAL PROTOCOL / [...] Visit completed when applicable. Nahomy Jennings LPN [facility] 05-06-2024 Nurse Note UNIVERSAL PROTOCOL / [...] Nahomy Jennings LPN documented in this encounter [facility] 05-06-2024 Instructions Bety Iglesias MD - 05/06/2024 11:06 AM EDT We are scheduling you for an echocardiogram Oct We are adding Metoprolol Succinate 25 mg once per day in the evening documented in this encounter [facility] 05-06-2024 History of Present illness Narrative Images from the original note were not included. [facility] SE[facility] CARDIOLOGY Cardiology ([facility] [place]) [address] [facility] [id number] OUTPATIENT VISIT DATE 05/06/2024 PRIMARY CARE PHYSICIAN: Ashlyn Keita [address] [place] [address] REFERRING PHYSICIAN: Ashlyn Keita [address] [facility] [address] HISTORY OF PRESENT ILLNESS: Ms. Bang is a 73 year old woman with moderate to severe mitral regurgitation and palpitations who presents for routine follow-up. She reports that she has been struggling with a diffuse erythematous rash. She has a follow-up with her allergy rf manager this week. She denies symptoms of palpitations, [...] cyst UNSPECIFIED ORAL SURGERY PROCEDURE, BY REPORT [place] teeth extracted UNSPECIFIED ORAL SURGERY PROCEDURE, BY [...] rare (<1.0%). Isolated VEs were occasional (4.7%, 92275), VE Couplets were rare (<1.0%, 31), and [...] Bety Iglesias MD documented in this encounter [facility] 05-05-2024 Telephone encounter Note Pt was notified of the results. Pt verbalized understanding. Salima Figueroa MA [facility] 05-05-2024 Miscellaneous Notes Pt was notified of the results. Pt verbalized understanding. Salima Figueroa MA Please let patient know she tested positive for bacterial vaginosis. This is an overgrowth of bacteria, and is not an STD. Take metronidazole as prescribed. Do not drink alcohol while taking this medication. Yeast was negative. documented in this encounter [facility] 05-05-2024 Telephone encounter Note Please let patient know she tested positive for bacterial vaginosis. This is an overgrowth of bacteria, and is not an STD. Take metronidazole as prescribed. Do not drink alcohol while taking this medication. Yeast was negative. [facility] 05-04-2024 History of Present illness Narrative [...] history is provided by the patient. No assistant speech language pathologist was used. Hives Associated symptoms include a [...] cyst UNSPECIFIED ORAL SURGERY PROCEDURE, BY REPORT [place] teeth extracted UNSPECIFIED ORAL SURGERY PROCEDURE, BY [...] Patient was okay with this care plan. Sahrri Aj APRN.AYAH documented in this encounter [facility] 04-30-2024 Nurse Note REVIEW OF SYSTEMS: [...] 09/13/2023 Last Colonoscopy: Unknown Maryanne Ramos RN [facility] 04-30-2024 Nurse Note REVIEW OF SYSTEMS: [...] Maryanne Ramos RN documented in this encounter [facility] 04-30-2024 History of Present illness Narrative [...] cyst UNSPECIFIED ORAL SURGERY PROCEDURE, BY REPORT [place] teeth extracted UNSPECIFIED ORAL SURGERY PROCEDURE, BY [...] Priti Bowser MD documented in this encounter [facility] 04-24-2024 Telephone encounter Note Spoke with patient. Given message from provider's office. Patient verbalizes understanding. Transferred to scheduler conveyor for NATALIE appointment with GEN SURG. Fallon Ruffin RN [facility] 04-24-2024 Miscellaneous Notes Spoke with patient. Given message from provider's office. Patient verbalizes understanding. Transferred to scheduler conveyor for NATALIE appointment with GEN SURG. Fallon [...] monitor for stability. documented in this encounter [facility] 04-24-2024 Telephone encounter Note Left message for patient to call office back and speak with triage nurse. Haylee Harman LPN [facility] 04-24-2024 Telephone encounter Note Patient's ultrasound [...] and 5 years to monitor for stability. [facility] 03-30-2024 History of Present illness Narrative [...] cyst UNSPECIFIED ORAL SURGERY PROCEDURE, BY REPORT [place] teeth extracted UNSPECIFIED ORAL SURGERY PROCEDURE, BY [...] Perry Bautista MD documented in this encounter [facility] 03-23-2024 History of Present illness Narrative This note was created using [employer]. Subjective Lauryn Bang is a 73 year [...] - STREP A MOLECULAR (POC) Regine Ivey APRN.WILLOW WORKER documented in this encounter [facility] 11-22-2023 History of Present illness Narrative This note was created using [employer]. Subjective Lauryn Bang is a 72 year [...] nothing. Risk factors: reports recent travel to [place] where she was in crowded settings. Her [...] cyst UNSPECIFIED ORAL SURGERY PROCEDURE, BY REPORT [place] teeth extracted UNSPECIFIED ORAL SURGERY PROCEDURE, BY [...] tenderness or frontal sinus tenderness. Mouth/Throat: Lips: [place]. No lesions. Mouth: Mucous membranes are moist. [...] and analgesia prn. Eliana Mcnair TEACHING PROVIDER (Physician/PA/COLLECTIONS ASSISTANT) NOTE OF PERSONAL INVOLVEMENT IN CARE: I have personally seen and examined the patient and performed the medical decision-making components. I have reviewed the Advanced Practice Registered Nurse (COLLECTIONS ASSISTANT) Student's documentation and verified the findings in the note as written. Any additions or changes are noted in bold/italics. Signature: Alicia Jurado Date: 11/22/2023 Time: 12:38 PM documented in this encounter [facility] 11-22-2023 History of Present illness Narrative [...] PATIENT PRESENTS WITH AN IMPLANTABLE OR ATTACHED SURFACER OPERATOR: No RADIOLOGY DEPARTMENT: General X-ray: Exam(s) Completed: Chest X-Ray PERIPHERAL IV DATA: Not applicable SIGNED BY: RT Zina(Gonzalez) November 22, 2023 12:06 PM documented in this encounter [facility] 11-14-2023 History of Present illness Narrative [...] 2023 8:22 AM documented in this encounter [facility] 10-26-2023 Telephone encounter Note 12/07/[address] ORDER Krista Nelson Field Sales Consultant [facility] 10-26-2023 Miscellaneous Notes 12/07/[address] ORDER Krista Nelson Field Sales Consultant documented in this encounter [facility] 09-14-2023 Miscellaneous Notes Patient active MyChart. Patient notified via VANDOLAYt message. Doreen Figueroa MA Please call patient and let her know her mammogram There is no mammographic evidence of malignancy. A 1 year screening mammogram is recommended. Ashlyn Keita APRN.CNP documented in this encounter [facility] 09-14-2023 Miscellaneous Notes September 15, 2023 PID: [id number] Lauryn Bang [address] [place] [address] Dear Ms. Bagn, We are pleased to inform you that [...] report will be kept on file at [facility] as part of your permanent medical record and are available for your continuing care. Thank you for allowing us to help in meeting your health care needs. Sincerely, Dr. Loera Interpreting Radiologist [facility] (Normal over 40) documented in this encounter [facility] 09-13-2023 History of Present illness Narrative [...] 2023 10:51 AM documented in this encounter [facility] 07-27-2023 Miscellaneous Notes Phoned patient and went over results, notes from Dr Bautista with understanding. ----- Message from Perry Bautista MD sent at 07/27/2023 8:49 AM EDT ----- Repeat magnesium level normal. No changes to regimen. documented in this encounter [facility] 07-18-2023 Instructions PodlogarAshlyn APRN.WILLOW WORKER - 07/18/2023 11:32 AM EDT Images from [...] If you do not have a responsible cdl a driver (family member or friend) with you to take you home, your exam cannot be done with sedation and will be cancelled. Please bring a list of all of your current medications, including any Kcex-zci-Qznpwxl medications with you. Medications If you take [...] exam. 2 09/2019 documented in this encounter [facility] 07-18-2023 History of Present illness Narrative 07/18/2023 Patient presents with: Establish Care SUBJECTIVE: This is a 72 year old that is here today for Above Complaints.. Recurrent UTI: sees Dr. Melton. Take nitrofurantion as needed Followed recently with slat basket maker machine. Has scheduled follow-up in October. No medication [...] week. AZO CRANBERRY (CRANBERRY EXT-C-L. SPOROGENES) 450-30-50 dc-ms-hzdptin tab Take by mouth. (Patient not taking: [...] Abs Lymph 1.00 - 4.00 k/uL 1.59 [place]% % 8.7 Abs [place] <0.87 k/uL 0.45 [place]% % 1.9 Abs [...] which included preparing to see the patient, gier-ig-vrex patient care, completing clinical documentation, obtaining and/or reviewing separately obtained history, performing a medically appropriate examination, counseling and educating the patient/family/caregiver, and ordering medications, tests, or procedures. documented in this encounter [facility] 06-30-2023 History of Present illness Narrative [...] IV DATA: Not applicable SIGNED BY: RT aJmes(R) June 30, 2023 11:29 AM documented in this encounter [facility] 06-30-2023 History of Present illness Narrative [...] week. AZO CRANBERRY (CRANBERRY EXT-C-L. SPOROGENES) 450-30-50 oj-cm-ibbhrrx tab Take by mouth. multivitamin ORAL tablet [...] BLD - CBC + DIFF Ashlyn Keita APRN.WILLOW WORKER Prescription instructions reviewed with patient as applicable. [...] which included preparing to see the patient, mkfg-do-zdda patient care, completing clinical documentation, obtaining and/or reviewing separately obtained history, performing a medically appropriate examination, counseling and educating the patient/family/caregiver, and ordering medications, tests, or procedures. documented in this encounter [facility] 04-20-2023 Note HNO ID: [id number] Author: Edith Low LPN Service: ? Author [...] suicidal ideas. The patient is not nervous/anxious. [facility] 04-20-2023 History of Present illness Narrative Review [...] not included. [facility] Name: Lauryn Bang : 1950 Purpose: [...] No She was sitting on a wooden taoist pew for about 90 minutes, had sudden onset of low back pain after she started walking around. Pain worsened over several days. Seen in [facility] on 09/26. She was given Prednisone [...] but caused GI Upset Opioids: Vicodin or Grand Cane (Hydrocodone) Muscle Relaxants: Flexeril (Cyclobenzaprine) - no [...] crest and there are 5 lumbar-type vertebrae. Pond Sawyer: CAMI Transcribe Date/Time: Mar 02 2023 11:14A [...] was advised that they will need a cdl a driver for after the procedure and that if no cdl a driver is available and on site at [...] getting tolerance testing to Lidocaine, Bupivacaine and BARREL WASHER Referrals: No additional considerations at present Functional Confucianist: Home Exercise Program: continue Depending on response [...] MD Pain Management [facility] documented in this encounter [facility] 04-19-2023 Note HNO ID: [id number] Author: Leonard Poe MD Service: ? Author Type: Physician Type: Progress Notes Filed: 04/20/2023 2:10 PM Note Text: [facility] Name: Lauryn Bang : 1950 Purpose: 2 [...] No She was sitting on a wooden taoist pew for about 90 minutes, had sudden onset of low back pain after she started walking around. Pain worsened over several days. Seen in [facility] on 09/26. She was given Prednisone [...] but caused GI Upset Opioids: Vicodin or Grand Cane (Hydrocodone) Muscle Relaxants: Flexeril (Cyclobenzaprine) - no [...] stenosis of lum (more content not included)... [facility] 03-31-2023 History of Present illness Narrative POPULATION [...] 2023 8:24 AM documented in this encounter [facility] 03-14-2023 Miscellaneous Notes CD/report READY FOR PROJECT INSPECTOR AT [facility] Pt is aware Pt requesting report and disc of MRI done on 03/02. Please call when ready for belt picker [phone] documented in this encounter [facility] 03-02-2023 History of Present illness Narrative [...] 2023 10:11 AM documented in this encounter [facility] 02-02-2023 Note HNO ID: [id number] Author: Adriane Ray MA Service: ? Author Type: Production Illustrator Type: Progress Notes Filed: 02/02/2023 1:41 PM [...] suicidal ideas. The patient is not nervous/anxious. [facility] 01-25-2023 Note HNO ID: [id number] Author: Leonard Poe MD Service: ? Author Type: Physician Type: Progress Notes Filed: 02/02/2023 1:41 PM Note Text: [facility] Name: Lauryn Bang : 1950 Purpose: 2 [...] No She was sitting on a wooden taoist pew for about 90 minutes, had sudden onset of low back pain after she started walking around. Pain worsened over several days. Seen in [facility] on 09/26. She was given Prednisone [...] but caused GI Upset Opioids: Vicodin or Grand Cane (Hydrocodone) Muscle Relaxants: Flexeril (Cyclobenzaprine) - no [...] Dorsal calcaneal enthes (more content not included)... [facility] 01-20-2023 Instructions Alicia Jurado APRN.WILLOW WORKER - 01/20/2023 12:29 PM EDT Images from the original note were not included. Adult Sinusitis Patient Education What is Sinusitis? Sinusitis [qikw-ijp-nfqw-tis] is inflammation of the sinuses or swelling [...] help. You may be instructed to take uztv-lqj-fnczbre medications for symptoms. including fever reducers acetaminophen or ibuprofen, nasal saline spray, cough and cold preparations and decongestants as prescribed by the physician, nurse practitioner or physician pediatric assistant. Self-Care and Prevention: Rest Fluids for hydration Good hand washing Humidifier Avoid smoking and exposure to second hand smoke Avoid sick contacts documented in this encounter [facility] 01-20-2023 History of Present illness Narrative [...] 2023 11:22 AM documented in this encounter [facility] 01-20-2023 History of Present illness Narrative [...] history is provided by the patient. No assistant speech language pathologist was used. Cough This is a new [...] cyst UNSPECIFIED ORAL SURGERY PROCEDURE, BY REPORT [place] teeth extracted UNSPECIFIED ORAL SURGERY PROCEDURE, BY [...] week. AZO CRANBERRY (CRANBERRY EXT-C-L. SPOROGENES) 450-30-50 hs-lz-ajpqyvn tab Take by mouth. multivitamin ORAL tablet [...] Alicia Jurado APRN.CNP documented in this encounter [facility] 12-02-2022 History of Present illness Narrative [...] and function . Patient education as noted. Self-Group Home Management: 1: *discussed sitting with lumbar spine [...] Alicia Robles PT documented in this encounter [facility] 11-29-2022 History of Present illness Narrative [...] Alicia Robles PT documented in this encounter [facility] 11-25-2022 History of Present illness Narrative [...] Alicia Robles PT documented in this encounter [facility] 11-22-2022 History of Present illness Narrative [...] Alicia Robles PT documented in this encounter [facility] 11-18-2022 History of Present illness Narrative [...] Alicia Robles PT documented in this encounter [facility] 11-17-2022 Miscellaneous Notes Addended by: LEONARD POE on: 11/17/2022 03:25 PM Modules accepted: Orders documented in this encounter [facility] 11-17-2022 History of Present illness Narrative [...] not included. [facility] Today's Date: 11/17/2022 Last Visit: N/A [...] - Initial HPI: Referred by Ashlyn Keita APRN.WILLOW WORKER , for evaluation & management of low back pain Duration: 2 months Sudden onset? yes, Trauma? No She was sitting on a wooden taoist pew for about 90 minutes, had sudden onset of low back pain after she started walking around. Pain worsened over several days. Seen in [facility] on 09/26. She was given Prednisone [...] but caused GI Upset Opioids: Vicodin or Grand Cane (Hydrocodone) Muscle Relaxants: Flexeril (Cyclobenzaprine) - no [...] was advised that they will need a cdl a driver for after the procedure and that if no cdl a driver is available and on site at the time of the procedure, the procedure will be cancelled. For any anticoagulants, the patient was advised on whether to continue or hold for this procedure. The patient expressed understanding and gave verbal consent to proceed. Medication(s): Celebrex 200mg BID PRN Zanaflex 4mg qHS PRN Spasms Additional Studies: none Referrals: No additional considerations at present Functional Confucianist: Physical Therapy (Land-based) - continue Home Exercise [...] current medical decision making from today's date. Ghent Poe MD, SANGITA Pain Management [facility] documented in this encounter [facility] 11-17-2022 History of Present illness Narrative POPULATION HEALTH NAVIGATION OUTREACH Action/[facility] Support: Called pt to schedule an [...] 2022 12:52 PM documented in this encounter [facility] 11-15-2022 Miscellaneous Notes Phoned patient and [...] cancelled. Please advise documented in this encounter [facility] 11-15-2022 History of Present illness Narrative [...] Patient to be seen for Therapeutic exercise (32401), Neuromuscular re-education (04711), Manual therapy (38722), Therapeutic activities (34758), Self-correction management (65702), Gait Training (39301), Patient/Family/Caregiver Education, Body Mechanics Training PLAN FOR [...] range pain, Centralizing, Normal Lumbar R Side [place]: Normal, End range pain Lumbar L Side [place]: Normal, End range pain Lumbar R Side-[place]: [...] and function . Patient education as noted. Self-Group Home Management: 1: *discussed postural awareness as she [...] Alicia Robles PT documented in this encounter [facility] 11-10-2022 History of Present illness Narrative [...] EDE Robles PT documented in this encounter [facility] 11-08-2022 History of Present illness Narrative [...] EDE Robles PT documented in this encounter [facility] 11-02-2022 History of Present illness Narrative [...] and tactile cueing. Patient education as noted. [facility] Management: 1: *discussed the role of the [...] Alicia Robles, PT documented in this encounter [facility] 11-01-2022 History of Present illness Narrative [...] and assessment of patient's response to intervention. [facility]-Group [facility] Management: 1: *discussed PT referral dx and [...] Alicia Robles PT documented in this encounter [facility] 10-18-2022 Miscellaneous Notes Pt called and [...] PT. Pt would like to go to [facility] PT. Call pt when order has been [...] Ashlyn Keita APRN.CNP documented in this encounter [facility] 10-17-2022 History of Present illness Narrative [...] 2022 3:27 PM documented in this encounter [facility] 10-17-2022 Instructions Ashlyn Keita APRN.CNP - 10/17/2022 3:02 PM EST Follow-up pending xray documented in this encounter [facility] 10-17-2022 History of Present illness Narrative [...] week. AZO CRANBERRY (CRANBERRY EXT-C-L. SPOROGENES) 450-30-50 fv-ua-gohgfnj tab Take by mouth. (Patient not taking: [...] which included preparing to see the patient, [id number] patient care, completing clinical documentation, obtaining and/or reviewing separately obtained history, performing a medically appropriate examination, counseling and educating the patient/family/caregiver, and ordering medications, tests, or procedures. documented in this encounter [facility] 09-26-2022 History of Present illness Narrative [...] 07/23/2022) AZO CRANBERRY (CRANBERRY EXT-C-L. SPOROGENES) 450-30-50 ct-kw-vmyosbd tab Take by mouth. (Patient not taking: [...] Nuris Enriquez PA-C documented in this encounter [facility] 08-19-2022 Miscellaneous Notes Patient telephoned and made aware. Voices understanding. Adamaris Goetz LPN Please call patient and let her know there is no mammographic evidence of malignancy. A 1 year screening mammogram is recommended. Thanks, Ashlyn Keita APRN.AYAH documented in this encounter [facility] 08-19-2022 Miscellaneous Notes August 19, 2022 PID: [id number] Lauryn Bang [address] [place] [address] Dear Ms. Bang, We are pleased to [...] report will be kept on file at [facility] as part of your permanent medical record and are available for your continuing care. Thank you for allowing us to help in meeting your health care needs. Sincerely, Dr. Fang Interpreting Radiologist [facility] (Normal over 40) documented in this encounter [facility] 08-18-2022 History of Present illness Narrative [...] DATA: Not applicable SIGNED BY: Elza Lilly Secret[employer] Tia August 18, 2022 2:03 PM documented in this encounter [facility] 08-11-2022 Miscellaneous Notes Phone call placed detailed message left on patients identified voicemail. Darlene Naidu LPN No fungal growth after 6 days still and preliminary report will notify if anything changes documented in this encounter [facility] 08-04-2022 Instructions Cornelia Ceballos APRN.CNP - 08/04/2022 2:24 PM EDT Possible lesion, cut, fungal infection Culture done will call with results. Westyl as ordered Recommend follow up with ENT for further evaluation documented in this encounter [facility] 08-04-2022 History of Present illness Narrative Subjective The history is provided by the patient. No assistant speech language pathologist was used. HPI Lauryn Bang is a [...] have confirmed and edited as necessary, the [facility] Review of Systems Constitutional: Negative for chills [...] Cornelia Ceballos APRN.AYAH documented in this encounter [facility] 07-23-2022 History of Present illness Narrative [...] cyst UNSPECIFIED ORAL SURGERY PROCEDURE, BY REPORT [place] teeth extracted UNSPECIFIED ORAL SURGERY PROCEDURE, BY REPORT 12/2016 tooth extracted VAGINAL HYSTERECTOMY UTERUS 250 GM/< 07/29/08 Hysterectomy, vaginal w/ cystocele repair ALLERGIES Augmentin [Amoxicillin-Pot Clavulanate], Bactrim [Sulfamethoxazole], Doxycycline, Erythromycin, and Rondec [Brompheniramine-Pseudoephedrin] MEDICATIONS estradiol 0.01 % (0.1 mg/g) vaginal cream Apply pea-sized amount to urethral opening twice a week. AZO CRANBERRY (CRANBERRY EXT-C-L. SPOROGENES) 450-30-50 yo-mg-hfjapea tab Take by mouth. multivitamin ORAL tablet [...] of care. This note was generated using Comunitae software. It may contain errors in wording, punctuation, or spelling. Dinh Barksdale APRN.CNP documented in this encounter [facility] 03-29-2022 History of Present illness Narrative [...] 2022 2:20 PM documented in this encounter [facility] 03-29-2022 History of Present illness Narrative [...] history is provided by the patient. No assistant speech language pathologist was used. Rash Review of Systems Constitutional: [...] cyst UNSPECIFIED ORAL SURGERY PROCEDURE, BY REPORT [place] teeth extracted UNSPECIFIED ORAL SURGERY PROCEDURE, BY REPORT 12/2016 tooth extracted VAGINAL HYSTERECTOMY UTERUS 250 GM/< 07/29/08 Hysterectomy, vaginal w/ cystocele repair ALLERGIES Augmentin [Amoxicillin-Pot Clavulanate], Bactrim [Sulfamethoxazole], Doxycycline, Erythromycin, and Rondec [Brompheniramine-Pseudoephedrin] MEDICATIONS diphenhydramine HCl (UNISOM SLEEPMELTS ORAL) Take by mouth. estradiol 0.01 % (0.1 mg/g) vaginal cream Apply pea-sized amount to urethral opening twice a week. Cranberry Ext-C-L. Sporogenes (FKRSTGDEJ-IOPBUIAJQB-QWJRIRK C) 450-30-50 de-ko-gaiedij ORAL Tab Take by mouth. multivitamin ORAL [...] No radiographic evidence of acute osseous injury Pond Sawyer: CAMI Transcribe Date/Time: Mar 29 2022 2:49P Dictated by : CESILIA PEREIRA MD prednisone 9 day taper prescribed. Patient educated and will follow up if needed. Sharri Aj APRN.AYAH documented in this encounter [facility] 03-17-2022 History of Present illness Narrative [...] opening twice a week. Cranberry Ext-C-L. Sporogenes ([id number]-LPDRZQTATY-BWNDOCC C) 450-30-50 ss-aq-gkmdgoe ORAL Tab Take by mouth. multivitamin ORAL [...] Kieran West MD documented in this encounter [facility] Evaluation note Diagnosis Contact dermatitis and other eczema, due to unspecified cause- Primary [facility] Diagnosis Injury- Primary Injury, other and unspecified, unspecified site [facility] Diagnosis Bacterial sinusitis- Primary Unspecified sinusitis (chronic) [facility] noteNo assessment information availableWSalem [facility] Work Phone: Evaluation note* Diagnosis Soreness of tongue- Primary Glossodynia [facility] Diagnosis Left lumbar pain- Primary Lumbago [facility] Diagnosis Left hip pain- Primary Pain in joint, pelvic region and thigh Lumbar pain Lumbago [facility] Diagnosis Lumbar pain- Primary Lumbago Left hip pain Pain in joint, pelvic region and thigh [facility] Diagnosis Lumbar pain- Primary Lumbago Left hip pain Pain in joint, pelvic region and thigh [facility] Diagnosis Lumbar pain- Primary Lumbago Left hip pain Pain in joint, pelvic region and thigh [facility] Diagnosis Lumbar pain- Primary Lumbago Left hip pain Pain in joint, pelvic region and thigh [facility] Diagnosis Lumbar pain- Primary Lumbago Left hip pain Pain in joint, pelvic region and thigh [facility] Diagnosis Lumbar pain- Primary Lumbago Left hip pain Pain in joint, pelvic region and thigh [facility] Diagnosis Lumbar spondylosis- Primary Lumbosacral spondylosis without myelopathy Spondylolisthesis of lumbar region Acquired spondylolisthesis Spinal stenosis, lumbar region, without neurogenic claudication [facility] Diagnosis Lumbar pain- Primary Lumbago Left hip pain Pain in joint, pelvic region and thigh [facility] Diagnosis Lumbar pain- Primary Lumbago Left hip pain Pain in joint, pelvic region and thigh [facility] Diagnosis Acute cough- Primary Rhinosinusitis Unspecified sinusitis (chronic) documented in this encounter [facility]* Diagnosis Spinal stenosis, lumbar region, without neurogenic claudication- Primary Spondylolisthesis of lumbar region Acquired spondylolisthesis Lumbar radiculopathy Thoracic or lumbosacral neuritis or radiculitis, unspecified Lumbar spondylosis Lumbosacral spondylosis without myelopathy Allergy history, anesthetic Personal history of allergy to anesthetic agent [facility]* Diagnosis Chest pain, unspecified type- Primary Mitral valve insufficiency, unspecified etiology Palpitations Screening for hyperlipidemia Screening for lipoid disorders Fatigue, unspecified type [facility]* Diagnosis Encounter to establish care- Primary Other reasons for seeking consultation Screening for colon cancer Special screening for malignant neoplasms, colon Encounter for screening mammogram for breast cancer Hyperlipidemia, mixed Mixed hyperlipidemia [facility] Diagnosis Spinal stenosis of lumbar region without neurogenic claudication Spinal stenosis, lumbar region, without neurogenic claudication [facility] Diagnosis Encounter for screening [facility]ogram for [facility] cancer [facility] Encounter for screening mammogram for breast cancer [facility] Diagnosis Acute cough- Primary URI, acute Acute upper respiratory infections of unspecified site Acute otitis media, right Unspecified otitis media documented in this encounter [facility] note* Diagnosis Sore throat- Primary Acute pharyngitis documented in this encounter [facility] note* Diagnosis Sore throat- Primary Acute pharyngitis Seasonal allergic rhinitis, unspecified trigger Nodular thyroid disease Heart murmur Undiagnosed cardiac murmurs Nonrheumatic mitral valve regurgitation documented in this encounter [facility] note* Diagnosis Nodular thyroid disease documented in this encounter [facility] note* Diagnosis Nodular thyroid disease- Primary documented in this encounter [facility] note* Diagnosis Abnormal ultrasound of thyroid gland- Primary Nonspecific abnormal results of thyroid function study Multinodular goiter Nontoxic multinodular goiter documented in this encounter [facility] note* Diagnosis Vaginal itching- Primary Pruritus of genital organs Hives Urticaria, unspecified documented in this encounter [facility] note* Diagnosis Nonrheumatic mitral valve regurgitation- Primary Palpitations documented in this encounter [facility] note* Diagnosis Acute urticaria- Primary Other specified urticaria documented in this encounter [facility] note* Diagnosis Abnormal ultrasound of thyroid gland- Primary Nonspecific abnormal results of thyroid function study documented in this encounter 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 note* Diagnosis Pre-operative examination- Primary Preoperative examination, unspecified Ganglion cyst Ganglion, unspecified Heart murmur Undiagnosed cardiac murmurs Chronic interstitial cystitis Nontoxic multinodular goiter Acute cough URI, acute Acute upper respiratory infections of unspecified site documented in this encounter [facility] note* Diagnosis Pre-operative examination- Primary Preoperative examination, unspecified Ganglion cyst Ganglion, unspecified Heart murmur Undiagnosed cardiac murmurs Chronic interstitial cystitis Nontoxic multinodular goiter Acute urticaria- Primary Other specified urticaria documented in this encounter [facility] note* Diagnosis Pre-operative examination- Primary Preoperative examination, unspecified Ganglion cyst Ganglion, unspecified Heart murmur Undiagnosed cardiac murmurs Chronic interstitial cystitis Nontoxic multinodular goiter Chest pain, unspecified type [facility] Diagnosis Pre-operative examination- Primary Preoperative examination, unspecified Ganglion cyst Ganglion, unspecified Heart murmur Undiagnosed cardiac murmurs Chronic interstitial cystitis Nontoxic multinodular goiter Acute cough [facility] Diagnosis Pre-operative examination- Primary Preoperative examination, unspecified Ganglion cyst Ganglion, unspecified Heart murmur Undiagnosed cardiac murmurs Chronic interstitial cystitis Nontoxic multinodular goiter Left hip pain Pain in joint, pelvic region and thigh Lumbar pain Lumbago [facility]* Diagnosis Pre-operative examination- Primary Preoperative examination, unspecified Ganglion cyst Ganglion, unspecified Heart murmur Undiagnosed cardiac murmurs Chronic interstitial cystitis Nontoxic multinodular goiter Injury Injury, other and unspecified, unspecified site [facility] Diagnosis Pre-operative examination- Primary Preoperative examination, unspecified Ganglion cyst Ganglion, unspecified Heart murmur Undiagnosed cardiac murmurs Chronic interstitial cystitis Nontoxic multinodular goiter Encounter for screening for malignant neoplasm of colon- Primary Special screening for malignant neoplasms, colon PONV (postoperative nausea and vomiting) Nausea with vomiting [facility] Diagnosis Pre-operative examination- Primary Preoperative examination, unspecified Ganglion cyst Ganglion, unspecified Heart murmur Undiagnosed cardiac murmurs Chronic interstitial cystitis Nontoxic multinodular goiter Nasal congestion- Primary Other diseases of nasal cavity and sinuses [facility] Diagnosis Pre-operative examination- Primary Preoperative examination, unspecified Ganglion cyst Ganglion, unspecified Heart murmur Undiagnosed cardiac murmurs Chronic interstitial cystitis Nontoxic multinodular goiter Encounter for screening mammogram for breast cancer [facility]* Diagnosis Pre-operative examination- Primary Preoperative examination, unspecified Ganglion cyst Ganglion, unspecified Heart murmur Undiagnosed cardiac murmurs Chronic interstitial cystitis Nontoxic multinodular goiter Encounter for screening mammogram for breast cancer [facility] Diagnosis Pre-operative examination- Primary Preoperative examination, unspecified Ganglion cyst Ganglion, unspecified Heart murmur Undiagnosed cardiac murmurs Chronic interstitial cystitis Nontoxic multinodular goiter Medicare annual wellness visit, subsequent- Primary Routine general medical examination at a health care facility Osteoporosis, unspecified osteoporosis type, unspecified pathological fracture presence [facility] Diagnosis Pre-operative examination- Primary Preoperative examination, unspecified Ganglion cyst Ganglion, unspecified Heart murmur Undiagnosed cardiac murmurs Chronic interstitial cystitis Nontoxic multinodular goiter Hyperkalemia- Primary Hyperpotassemia Hypercalcemia [facility]* Diagnosis Pre-operative examination- Primary Preoperative examination, unspecified Ganglion cyst Ganglion, unspecified Heart murmur Undiagnosed cardiac murmurs Chronic interstitial cystitis Nontoxic multinodular goiter Nonrheumatic mitral valve regurgitation- Primary Palpitations [facility] Diagnosis Pre-operative examination- Primary Preoperative examination, unspecified Ganglion cyst Ganglion, unspecified Heart murmur Undiagnosed cardiac murmurs Chronic interstitial cystitis Nontoxic multinodular goiter Osteoporosis, unspecified osteoporosis type, unspecified pathological fracture presence [facility] Diagnosis Pre-operative examination- Primary Preoperative examination, unspecified Ganglion cyst Ganglion, unspecified Heart murmur Undiagnosed cardiac murmurs Chronic interstitial cystitis Nontoxic multinodular goiter Acute cough- Primary Viral illness Unspecified viral infection, in conditions classified elsewhere and of unspecified site Diarrhea, unspecified type Acute cough [facility] Diagnosis Pre-operative examination- Primary Preoperative examination, unspecified Ganglion cyst Ganglion, unspecified Heart murmur Undiagnosed cardiac murmurs Chronic interstitial cystitis Nontoxic multinodular goiter Acute cough [facility] Diagnosis Pre-operative examination- Primary Preoperative examination, unspecified Ganglion cyst Ganglion, unspecified Heart murmur Undiagnosed cardiac murmurs Chronic interstitial cystitis Nontoxic multinodular goiter Herpes zoster without complication- Primary Herpes zoster without mention of complication Bacterial sinusitis Unspecified sinusitis (chronic) [facility] Diagnosis Pre-operative examination- Primary Preoperative examination, unspecified Ganglion cyst Ganglion, unspecified Heart murmur Undiagnosed cardiac murmurs Chronic interstitial cystitis Nontoxic multinodular goiter Herpes zoster without complication Herpes zoster without mention of complication Lack of appetite Anorexia Postherpetic neuralgia Herpes zoster with other nervous system complications [facility]* Diagnosis Pre-operative examination- Primary Preoperative examination, unspecified Ganglion cyst Ganglion, unspecified Heart murmur Undiagnosed cardiac murmurs Chronic interstitial cystitis Nontoxic multinodular goiter Postherpetic neuralgia Herpes zoster with other nervous system complications [facility]* Diagnosis Pre-operative examination- Primary Preoperative examination, unspecified Ganglion cyst Ganglion, unspecified Heart murmur Undiagnosed cardiac murmurs Chronic interstitial cystitis Nontoxic multinodular goiter Abdominal pain, unspecified abdominal location- Primary documented in this encounter [facility] note* Diagnosis Pre-operative examination- Primary Preoperative examination, unspecified Ganglion cyst Ganglion, unspecified Heart murmur Undiagnosed cardiac murmurs Chronic interstitial cystitis Nontoxic multinodular goiter Postherpetic neuralgia- Primary Herpes zoster with other nervous system complications Generalized abdominal pain Abdominal pain, generalized Other fatigue documented in this encounter [facility] note* Diagnosis Pre-operative examination- Primary Preoperative examination, unspecified Ganglion cyst Ganglion, unspecified Heart murmur Undiagnosed cardiac murmurs Chronic interstitial cystitis Nontoxic multinodular goiter Calculus of gallbladder without cholecystitis without obstruction Calculus of gallbladder without mention of cholecystitis or obstruction documented in this encounter [facility] note* Diagnosis Pre-operative examination- Primary Preoperative examination, unspecified Ganglion cyst Ganglion, unspecified Heart murmur Undiagnosed cardiac murmurs Chronic interstitial cystitis Nontoxic multinodular goiter Nonrheumatic mitral valve regurgitation Palpitations documented in this encounter [facility] note* Diagnosis Pre-operative examination- Primary Preoperative examination, [...] obstruction documented in this encounter [facility] for referral (narrative)* Diagnostic Procedure Only (Urgent) - Closed Specialty Diagnoses / Procedures Referred By Rayshawn brooks Referred To Contact XR IMAGING Diagnoses Injury Procedures XR FOOT GENERAL 3V AP/LAT/OBL RIGHT RADEX FOOT COMPLETE MINIMUM 3 VIEWS Sharri Aj, NEPT[employer]I.[employer] [address] [place] [address] Xr Imaging Referral ID Status Reason Start Date Expiration Date V isits Requested Visits Authorized [id number] Closed Auto-Generate d Referral 03/29/2022 04/28/20[address] [facility] for referral (narrative)* Diagnostic Procedure Only (Routine) - Closed Specialty Diagnoses / Procedures Referred By Contac t Referred To Contact XR IMAGING Diagnoses Lumbar pain Procedures XR LUMBAR GENERAL 3V AP/LAT/L5-S1 RADEX SPINE LUMBOSACRAL 2/3 VIEWS JalynlogAshlyn luevano APRN.[employer] [address] [place] [address] Xr Imaging Referral ID Status Reason Start Date Expiration Date V isits Requested Visits Authorized [id number] Closed Auto-Generate d Referral 10/17/2022 11/16/2023 1 1 * Diagnostic Procedure Only (Routine) - Closed Specialty Diagnoses / Procedures Referred By Contac t Referred To Contact XR IMAGING Diagnoses Left hip pain Procedures XR HIP GENERAL 3V PELV/AP/LAT LEFT RADEX HIP UNILATERAL WITH PELVIS 2-3 VIEWS Ashlyn Keita APRN.WILLOW WORKER [address] [place] [address] Xr Imaging Referral ID Status Reason Start Date Expiration Date V isits Requested Visits Authorized [id number] Closed Auto-Generate d Referral 10/17/2022 11/16/2023 [address] [facility] for referral (narrative)* Diagnostic Procedure Only (Routine) - Authorized Specialty Diagnoses / Procedures Referred By Contac t Referred To Contact BR IMAGING Diagnoses Encounter for screening mammogram for breast cancer Procedures TINO SCREENING SCREENING MAMMOGRAPHY BI 2-VIEW BREAST INC CAD PodlogAshlyn luevano APRN.WILLOW WORKER [address] [place] [address] Br Imaging [address] [place] [address] Referral ID Status Reason Start Date Expiration Date Visits Requested Visits Authorized [id number] Authorized Auto-Generat ed Referral 3 08/16/2024 1 1 * Consult, Test, Treat (Routine) - Pending Review Specialty Diagnoses / Procedures Referred By Contac t Referred To Contact General Surgery Diagnoses Screening for colon cancer Procedures CONSULT TO GENERAL SURGERY OFFICE/OUTPATIENT [facility] 60-74 MINUTES Ashlyn Keita APRN.CNP [address] [place] [address] Referral ID Status Reason Start Date Expiration Date Visits Requested Visits Authorized [id number] Pending Review PCP Requested Referral 3 07/17/2024 [address] [facility] for referral (narrative)* Diagnostic Procedure Only (Routine) - Closed Specialty Diagnoses / Procedures Referred By Rayshawn t Referred To Contact BR IMAGING Diagnoses Encounter for screening mammogram for breast cancer Procedures TINO SCREENING W GIANLUCA SCREENING BREAST DGTL GIANLUCA UNI/BILAT ADD ON SCREENING MAMMOGRAPHY BI 2-VIEW BREAST INC CAD Júnior Raygoza MD [address] [place] [address] [place] [address] Br Imaging [address] [place] [address] Referral ID Status Reason Start Date Expiration Date V isits Requested Visits Authorized [id number] Closed Auto-Generate d Referral 09/08/2021 10/08/2022 [address] [facility] for referral (narrative)* Diagnostic Procedure Only (Routine) - New Request Specialty Diagnoses / Procedures Referred By Contac t Referred To Contact US IMAGING Diagnoses Nodular thyroid disease Procedures US THYROID/PARATHYROID US SOFT TISSUE HEAD & NECK REAL TIME IMGE Perry Story MD [address] [place] [address] [place] [address] Referral ID Status Reason Start Date Expiration Date Visits Requested Visits Authorized [id number] New Request Auto-Generat ed Referral 04/24/2025 05/24/2025 1 1 * Consult, Test, Treat (Routine) - Authorized Specialty Diagnoses / Procedures Referred By Contac t Referred To Contact General Surgery Diagnoses Nodular thyroid disease Procedures CONSULT TO GENERAL SURGERY OFFICE/OUTPATIENT [facility] 60 MINUTES Perry Bautista MD [address] [place] [address] Referral ID Status Reason Start Date Expiration Date Visits Requested Visits Authorized [id number] Authorized PCP Requested Referral 04/24/2024 04/24/2025 [address] [facility] for referral (narrative)* Outpatient Procedure (Routine) - Authorized Specialty Diagnoses / Procedures Referred By Contac t Referred To Contact [facility] Diagnoses Nonrheumatic mitral valve regurgitation Palpitations Procedures ECHO ECHO TTHRC R-T 2D W/WOM-MODE COMPL SPEC&COLR D Bety Iglesias MD [address] [place] [address] [facility] [address] [place] [address] Referral ID Status Reason Start Date Expiration Date Visits Requested Visits Authorized [id number] Authorized Auto-Generat ed Referral 07/09/2024 05/06/2025 [address] [facility] for referral (narrative)* Diagnostic Procedure Only (Routine) - Closed Specialty Diagnoses / Procedures Referred By Contac t Referred To Contact XR IMAGING Diagnoses Lumbar pain Procedures XR LUMBAR GENERAL 3V AP/LAT/L5-S1 RADEX SPINE LUMBOSACRAL 2/3 VIEWS Podlogar, APRN. AshlynWILLOW WORKER [address] [place] [address] [place] [address] Referral ID Status Reason Start Date Expiration Date V isits Requested Visits Authorized [id number] Closed Auto-Generate d Referral 10/17/2022 11/16/2023 1 1 * Diagnostic Procedure Only (Routine) - Closed Specialty Diagnoses / Procedures Referred By Contac t Referred To Contact XR IMAGING Diagnoses Left hip pain Procedures XR HIP GENERAL 3V PELV/AP/LAT LEFT RADEX HIP UNILATERAL WITH PELVIS 2-3 VIEWS Ashlyn Keita APRN.WILLOW WORKER [address] [place] [address] [place] [address] Referral ID Status Reason Start Date Expiration Date V isits Requested Visits Authorized [id number] Closed Auto-Generate d Referral 10/17/2022 11/16/2023 [address] [facility] for referral (narrative)* Diagnostic Procedure Only (Urgent) - Closed Specialty Diagnoses / Procedures Referred By Contac t Referred To Contact XR IMAGING Diagnoses Injury Procedures XR FOOT GENERAL 3V AP/LAT/OBL RIGHT RADEX FOOT COMPLETE MINIMUM 3 VIEWS Sharri Aj APRN.WILLOW WORKER [address] [place] [address] [place] [address] Referral ID Status Reason Start Date Expiration Date V isits Requested Visits Authorized [id number] Closed Auto-Generate d Referral 03/29/2022 04/28/2023 [address] [facility] for referral (narrative)* Outpatient Procedure (Routine) - Closed Specialty Diagnoses / Procedures Referred By Contac t Referred To Contact [facility] Diagnoses Encounter for screening for malignant neoplasm of colon Procedures COLONOSCOPY SCREENING COLONOSCOPY FLX DX W/COLLJ SPEC WHEN PFRMD Freda Saab PA-C [address] [place] [address] [facility] [address] [place] [id number] Referral ID Status Reason Start Date Expiration Date V isits Requested Visits Authorized [id number] Closed Auto-Generate d Referral 10/26/2023 10/26/2024 1 1 [facility] for referral (narrative)* Diagnostic Procedure Only (Routine) - New Request Specialty Diagnoses / Procedures Referred By Contac t Referred To Contact BR IMAGING Diagnoses Encounter for screening mammogram for breast cancer Procedures TINO SCREENING W GIANLUCA SCREENING DIGITAL BREAST TOMOSYNTHESIS BI SCREENING MAMMOGRAPHY BI 2-VIEW BREAST INC Perry Ferreira MD [address] [place] [address] Br Imaging [address] [place] [address] Referral ID Status Reason Start Date Expiration Date Visits Requested Visits Authorized [id number] New Request Auto-Generat ed Referral 10/15/2024 11/14/2025 1 1 [facility] for referral (narrative)* Diagnostic Procedure Only (Routine) - Closed Specialty Diagnoses / Procedures Referred By Contac t Referred To Contact BR IMAGING Diagnoses Encounter for screening mammogram for breast cancer Procedures TINO SCREENING W GIANLUCA SCREENING DIGITAL BREAST TOMOSYNTHESIS BI SCREENING MAMMOGRAPHY BI 2-VIEW BREAST INC Perry Ferreira MD [address] [place] [address] [facility] [address] [place] [address] Referral ID Status Reason Start Date Expiration Date V isits Requested Visits Authorized [id number] Closed Auto-Generate d Referral 10/15/2024 11/14/2025 1 1 [facility] for referral (narrative)* Diagnostic Procedure Only (Routine) - Authorized Specialty Diagnoses / Procedures Referred By Contac t Referred To Contact XR IMAGING Diagnoses Osteoporosis, unspecified osteoporosis type, unspecified pathological fracture presence Procedures DXA-AXIAL SKELETON DXA BONE DENSITY STUDY / SITES AXIAL SKEL Ashlyn Keita APRN.WILLOW WORKER [address] [place] [address] [place] [address] Referral ID Status Reason Start Date Expiration Date Visits Requested Visits Authorized [id number] Authorized Auto-Generat ed Referral 11/12/2024 12/12/2025 [address] [facility] for visit Narrative* Diagnostic Procedure Only (Routine) - Closed Specialty Diagnoses / Procedures Referred By Contac t Referred To Contact BR IMAGING Diagnoses Encounter for screening mammogram for breast cancer Procedures TINO SCREENING W GIANLUCA SCREENING BREAST DGTL GIANLUCA UNI/BILAT ADD ON SCREENING MAMMOGRAPHY BI 2-VIEW BREAST INC CAD Júnior Raygoza MD [address] [place] [address] [place] [address] Br Imaging [address] [place] [address] Referral ID Status Reason Start Date Expiration Date V isits Requested Visits Authorized [id number] Closed Auto-Generate d Referral 09/08/2021 10/08/2022 [address] [facility] for visit Narrative* Diagnostic Procedure Only (Routine) - Closed Specialty Diagnoses / Procedures Referred By Contja t Referred To Contact BR IMAGING Diagnoses Encounter for screening mammogram for breast cancer Procedures TINO SCREENING SCREENING MAMMOGRAPHY BI 2-VIEW BREAST INC CAD Ashlyn Keita APRN.WILLOW WORKER [address] [place] [address] Br Imaging [address] [place] [address] Referral ID Status Reason Start Date Expiration Date V isits Requested Visits Authorized [id number] Closed Auto-Generate d Referral 07/18/2023 08/16/2024 [address] [facility] for visit Narrative* Diagnostic Procedure Only (Routine) - Closed Specialty Diagnoses / Procedures Referred By Rayshawn t Referred To Contact US IMAGING Diagnoses Nodular thyroid disease Procedures US THYROID/PARATHYROID US SOFT TISSUE HEAD & NECK REAL TIME IMGE Perry Story MD [address] [place] [address] [place] [address] Referral ID Status Reason Start Date Expiration Date V isits Requested Visits Authorized [id number] Closed Auto-Generate d Referral 03/30/2024 04/29/2025 [address] [facility] for visit Narrative* Diagnostic Procedure Only (Routine) - Closed Specialty Diagnoses / Procedures Referred By Contac t Referred To Contact XR IMAGING Diagnoses Lumbar pain Procedures XR LUMBAR GENERAL 3V AP/LAT/L5-S1 RADEX SPINE LUMBOSACRAL 2/3 VIEWS Ashlyn Keita COLLECTIONS ASSISTANT.WILLOW WORKER [address] [place] [address] [place] [address] Referral ID Status Reason Start Date Expiration Date V isits Requested Visits Authorized [id number] Closed Auto-Generate d Referral 10/17/2022 11/16/2023 [address] [facility] for visit Narrative* Diagnostic Procedure Only (Urgent) - Closed Specialty Diagnoses / Procedures Referred By Contac t Referred To Contact XR IMAGING Diagnoses Injury Procedures XR FOOT GENERAL 3V AP/LAT/OBL RIGHT RADEX FOOT COMPLETE MINIMUM 3 VIEWS Sharri Aj, NEPTALI.WILLOW WORKER [address] [place] [address] [place] [address] Referral ID Status Reason Start Date Expiration Date V isits Requested Visits Authorized [id number] Closed Auto-Generate d Referral 03/29/2022 04/28/2023 [address] [facility] for visit Narrative* Diagnostic Procedure Only (Routine) - Closed Specialty Diagnoses / Procedures Referred By Contac t Referred To Contact BR IMAGING Diagnoses Encounter for screening mammogram for breast cancer Procedures TINO SCREENING W GIANLUCA SCREENING DIGITAL BREAST TOMOSYNTHESIS BI SCREENING MAMMOGRAPHY BI 2-VIEW BREAST INC Perry Ferreira MD [address] [place] [address] [facility] Imaging [address] [place] [address] Referral ID Status Reason Start Date Expiration Date V isits Requested Visits Authorized [id number] Closed Auto-Generate d Referral 10/15/2024 11/14/2025 [address] [facility] for visit Narrative* Diagnostic Procedure Only (Routine) - Closed Specialty Diagnoses / Procedures Referred By Contac t Referred To Contact XR IMAGING Diagnoses Osteoporosis, unspecified osteoporosis type, unspecified pathological fracture presence Procedures DXA-AXIAL SKELETON DXA BONE DENSITY STUDY SITES AXIAL SKEL PodlogAshlyn luevano APRN.WILLOW WORKER [address] [place] [address] Phone: tel: fax: [place] [address] Referral ID Status Reason Start Date Expiration Date V isits Requested Visits Authorized [id number] Closed Auto-Generate d Referral 11/12/2024 12/12/2025 1 1 [facility] Summary Purpose Family History No Family History Records FoundNo Family History Records FoundNo Family History Records FoundNo Family History Records Found Advance Directives No Advanced Directives Records FoundDocuments on File Type Date 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 Advance Directive(s) Advance Directive(s) 03/20/2019 11:46 AM Advance Directive(s) 02/28/2019 4:29 PM Documents on File Type Date 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 Advance Directive(s) Advance Directive(s) 03/20/2019 11:46 AM Advance Directive(s) 02/28/2019 4:29 PM Advance Directive Response Recorded Date/ Time Living Will No December 03 12:59pm Power of Station Helper No December 03, 2020 12:59pm Chief Complaint and Reason for Visit Chief Complaint NEED ORDER Reason for Referral Specialty Diagnoses / Procedures Referred By Contac t Referred To Contact [facility] Diagnoses Lumbar pain Left hip pain Procedures CONSULT TO PHYSICAL THERAPY PHYSICAL THERAPY EVALUATION HIGH COMPLEX 45 MINS Ashlyn Keita, NEPTALI.WILLOW WORKER [address] [place] [address] [facility] [address] [place] [address] Referral ID Status Reason Start Date Expiration Date Visits Requested Visits Authorized [id number] Pending Review Auto-Generat ed Referral 10/18/2022 10/18/2023 1 1 Specialty Diagnoses / Procedures Referred By Contac t Referred To Contact Allergy Diagnoses Allergy history, anesthetic Procedures CONSULT TO ALLERGY/IMMUNOLOGY OFFICE/OUTPATIENT NEW HIGH MDM 60-74 MINUTES Leonard Poe MD [address] [facility] [address] [place] [address] Referral ID Status Reason Start Date Expiration Date Visits Requested Visits Authorized [id number] Pending Review PCP Requested Referral 04/20/2023 04/19/2024 1 1 Specialty Diagnoses / Procedures Referred By Contac t Referred To Contact Cardiology Diagnoses Chest pain, unspecified type Procedures CONSULT TO CARDIOLOGY OFFICE/OUTPATIENT NEW HIGH MDM 60-74 MINUTES Podlogar, Ashlyn, COLLECTIONS ASSISTANT.WILLOW WORKER [address] [place] [address] Referral ID Status Reason Start Date Expiration Date Visits Requested Visits Authorized [id number] Pending Review PCP Requested Referral 06/30/2023 06/29/2024 1 1 Specialty Diagnoses / Procedures Referred By Contac t Referred To Contact [facility] Diagnoses Chest pain, unspecified type Heart murmur Mitral valve insufficiency, unspecified etiology Procedures ECHO ECHO TTHRC R-T 2D W/WOM-MODE COMPL SPEC&COLR D Podlogar, Ashlyn, COLLECTIONS ASSISTANT.WILLOW WORKER [address] [place] [address] [facility] [address] [place] [address] Referral ID Status Reason Start Date Expiration Date Visits Requested Visits Authorized [id number] Authorized Auto-Generat ed Referral 06/30/2023 06/29/2024 1 1 Specialty Diagnoses / Procedures Referred By Contac t Referred To Contact [facility] Diagnoses Chest pain, unspecified type Procedures ECG COMPLETE ECG ROUTINE ECG W/LEAST 12 LDS W/I&R Podlogar, Ashlyn, COLLECTIONS ASSISTANT.WILLOW WORKER [address] [place] [address] [facility] [address] [place] [address] Referral ID Status Reason Start Date Expiration Date V isits Requested Visits Authorized [id number] Closed Auto-Generate d Referral 06/30/2023 06/29/2024 1 1 Specialty Diagnoses / Procedures Referred By Contac t Referred To Contact MR IMAGING Diagnoses Spinal stenosis of lumbar region without neurogenic claudication Procedures MRI LUMBAR SPINE WO IVCON MRI SPINAL CANAL LUMBAR W/O CONTRAST MATERIAL Leonard Poe MD [address] [facility] [address] [place] [address] [place] [address] Referral ID Status Reason Start Date Expiration Date V isits Requested Visits Authorized [id number] Closed Auto-Generate d Referral 02/02/2023 03/03/2024 1 1 Specialty Diagnoses / Procedures Referred By Contac t Referred To Contact Endocrinology Diagnoses Nodular thyroid disease Procedures CONSULT TO ENDOCRINOLOGY OFFICE/OUTPATIENT [facility] 60 MINUTES Perry Bautista MD [address] [place] [address] Referral ID Status Reason Start Date Expiration Date Visits Requested Visits Authorized [id number] Authorized PCP Requested Referral 03/30/2024 03/30/2025 1 1 Specialty Diagnoses / Procedures Referred By Contac t Referred To Contact US IMAGING Diagnoses Nodular thyroid disease Procedures US THYROID/PARATHYROID US SOFT TISSUE HEAD & NECK REAL TIME IMGE DOCM Perry Bautista MD [address] [place] [address] [place] [address] Referral ID Status Reason Start Date Expiration Date Visits Requested Visits Authorized [id number] Authorized Auto-Generat ed Referral 03/30/2024 04/29/2025 1 1 Health Concerns Infection Onset Date Last Indicated Resolved Time COVID-19 Rule-Out 01/20/2023 01/20/2023 01/21/2023 12:41 AM EDT Infection Onset Date Last Indicated Resolved Time COVID-19 Rule-Out 11/22/2023 11/22/2023 11/22/2023 8:30 PM EST Additional Source Comments INFORMATION SOURCE (unrecogn ized section and content) DATE CREATED AUTHOR 03/20/2019 [facility] DATE CREATED AUTHOR AUTHOR'S ORGANIZ ATION 12/09/2023 [facility] DATE CREATED AUTHOR AUTHOR'S ORGANIZ ATION 05/27/2024 [facility] DATE CREATED AUTHOR AUTHOR'S ORGANIZ ATION 07/15/2025 [facility] Source Comments (unrecognize d section and content) In the event this informatio n is protected by the Federal Confidentiality of Alcohol and Drug Abuse Patient Records regulations: The Federal rules restrict any use of the information to criminally investigate or prosecute any alcohol or drug abuse patient.[facility] the event this information is protected by the Federal Confidentiality of Alcohol and Drug Abuse Patient Records regulations: The Federal rules restrict any use of the information to criminally investigate or prosecute any alcohol or drug abuse patient.[facility] the event this information is protected by the Federal Confidentiality of Alcohol and Drug Abuse Patient Records regulations: The Federal rules restrict any use of the information to criminally investigate or prosecute any alcohol or drug abuse patient.[facility] the event this information is protected by the Federal Confidentiality of Alcohol and Drug Abuse Patient Records regulations: The Federal rules restrict any use of the information to criminally investigate or prosecute any alcohol or drug abuse patient.[facility] the event this information is protected by the Federal Confidentiality of Alcohol and Drug Abuse Patient Records regulations: The Federal rules restrict any use of the information to criminally investigate or prosecute any alcohol or drug abuse patient.[facility] the event this information is protected by the Federal Confidentiality of Alcohol and Drug Abuse Patient Records regulations: The Federal rules restrict any use of the information to criminally investigate or prosecute any alcohol or drug abuse patient.[facility] the event this information is protected by the Federal Confidentiality of Alcohol and Drug Abuse Patient Records regulations: The Federal rules restrict any use of the information to criminally investigate or prosecute any alcohol or drug abuse patient.[facility] the event this information is protected by the Federal Confidentiality of Alcohol and Drug Abuse Patient Records regulations: The Federal rules restrict any use of the information to criminally investigate or prosecute any alcohol or drug abuse patient.[facility] the event this information is protected by the Federal Confidentiality of Alcohol and Drug Abuse Patient Records regulations: The Federal rules restrict any use of the information to criminally investigate or prosecute any alcohol or drug abuse patient.[facility] Hospital[facility] the event this information is protected by the Federal Confidentiality of Alcohol and Drug Abuse Patient Records regulations: The Federal rules restrict any use of the information to criminally investigate or prosecute any alcohol or drug abuse patient.[facility] Hospital[facility] the event this information is protected by the Federal Confidentiality of Alcohol and Drug Abuse Patient Records regulations: The Federal rules restrict any use of the information to criminally investigate or prosecute any alcohol or drug abuse patient.[facility] Hospital[facility] the event this information is protected by the Federal Confidentiality of Alcohol and Drug Abuse Patient Records regulations: The Federal rules restrict any use of the information to criminally investigate or prosecute any alcohol or drug abuse patient.[facility] Hospital[facility] the event this information is protected by the Federal Confidentiality of Alcohol and Drug Abuse Patient Records regulations: The Federal rules restrict any use of the information to criminally investigate or prosecute any alcohol or drug abuse patient.[facility] Hospital[facility] the event this information is protected by the Federal Confidentiality of Alcohol and Drug Abuse Patient Records regulations: The Federal rules restrict any use of the information to criminally investigate or prosecute any alcohol or drug abuse patient.[facility] HospitalIn the event this information is protected by the Federal Confidentiality of Alcohol and Drug Abuse Patient Records regulations: The Federal rules restrict any use of the information to criminally investigate or prosecute any alcohol or drug abuse patient.[facility] HospitalIn the event this information is protected by the Federal Confidentiality of Alcohol and Drug Abuse Patient Records regulations: The Federal rules restrict any use of the information to criminally investigate or prosecute any alcohol or drug abuse patient.[facility] HospitalIn the event this information is protected by the Federal Confidentiality of Alcohol and Drug Abuse Patient Records regulations: The Federal rules restrict any use of the information to criminally investigate or prosecute any alcohol or drug abuse patient.[facility] HospitalIn the event this information is protected by the Federal Confidentiality of Alcohol and Drug Abuse Patient Records regulations: The Federal rules restrict any use of the information to criminally investigate or prosecute any alcohol or drug abuse patient.[facility] HospitalIn the event this information is protected by the Federal Confidentiality of Alcohol and Drug Abuse Patient Records regulations: The Federal rules restrict any use of the information to criminally investigate or prosecute any alcohol or drug abuse patient.[facility] HospitalIn the event this information is protected by the Federal Confidentiality of Alcohol and Drug Abuse Patient Records regulations: The Federal rules restrict any use of the information to criminally investigate or prosecute any alcohol or drug abuse patient.[facility] HospitalIn the event this information is protected by the Federal Confidentiality of Alcohol and Drug Abuse Patient Records regulations: The Federal rules restrict any use of the information to criminally investigate or prosecute any alcohol or drug abuse patient.[facility] HospitalIn the event this information is protected by the Federal Confidentiality of Alcohol and Drug Abuse Patient Records regulations: The Federal rules restrict any use of the information to criminally investigate or prosecute any alcohol or drug abuse patient.[facility] HospitalIn the event this information is protected by the Federal Confidentiality of Alcohol and Drug Abuse Patient Records regulations: The Federal rules restrict any use of the information to criminally investigate or prosecute any alcohol or drug abuse patient.[facility] HospitalIn the event this information is protected by the Federal Confidentiality of Alcohol and Drug Abuse Patient Records regulations: The Federal rules restrict any use of the information to criminally investigate or prosecute any alcohol or drug abuse patient.[facility] HospitalIn the event this information is protected by the Federal Confidentiality of Alcohol and Drug Abuse Patient Records regulations: The Federal rules restrict any use of the information to criminally investigate or prosecute any alcohol or drug abuse patient.[facility] HospitalIn the event this information is protected by the Federal Confidentiality of Alcohol and Drug Abuse Patient Records regulations: The Federal rules restrict any use of the information to criminally investigate or prosecute any alcohol or drug abuse patient.[facility] HospitalIn the event this information is protected by the Federal Confidentiality of Alcohol and Drug Abuse Patient Records regulations: The Federal rules restrict any use of the information to criminally investigate or prosecute any alcohol or drug abuse patient.[facility] HospitalIn the event this information is protected by the Federal Confidentiality of Alcohol and Drug Abuse Patient Records regulations: The Federal rules restrict any use of the information to criminally investigate or prosecute any alcohol or drug abuse patient.[facility] HospitalIn the event this information is protected by the Federal Confidentiality of Alcohol and Drug Abuse Patient Records regulations: The Federal rules restrict any use of the information to criminally investigate or prosecute any alcohol or drug abuse patient.[facility] HospitalIn the event this information is protected by the Federal Confidentiality of Alcohol and Drug Abuse Patient Records regulations: The Federal rules restrict any use of the information to criminally investigate or prosecute any alcohol or drug abuse patient.[facility] HospitalIn the event this information is protected by the Federal Confidentiality of Alcohol and Drug Abuse Patient Records regulations: The Federal rules restrict any use of the information to criminally investigate or prosecute any alcohol or drug abuse patient.[facility] HospitalIn the event this information is protected by the Federal Confidentiality of Alcohol and Drug Abuse Patient Records regulations: The Federal rules restrict any use of the information to criminally investigate or prosecute any alcohol or drug abuse patient.[facility] HospitalIn the event this information is protected by the Federal Confidentiality of Alcohol and Drug Abuse Patient Records regulations: The Federal rules restrict any use of the information to criminally investigate or prosecute any alcohol or drug abuse patient.[facility] HospitalIn the event this information is protected by the Federal Confidentiality of Alcohol and Drug Abuse Patient Records regulations: The Federal rules restrict any use of the information to criminally investigate or prosecute any alcohol or drug abuse patient.[facility] HospitalIn the event this information is protected by the Federal Confidentiality of Alcohol and Drug Abuse Patient Records regulations: The Federal rules restrict any use of the information to criminally investigate or prosecute any alcohol or drug abuse patient.[facility] HospitalIn the event this information is protected by the Federal Confidentiality of Alcohol and Drug Abuse Patient Records regulations: The Federal rules restrict any use of the information to criminally investigate or prosecute any alcohol or drug abuse patient.[facility] HospitalIn the event this information is protected by the Federal Confidentiality of Alcohol and Drug Abuse Patient Records regulations: The Federal rules restrict any use of the information to criminally investigate or prosecute any alcohol or drug abuse patient.[facility] HospitalIn the event this information is protected by the Federal Confidentiality of Alcohol and Drug Abuse Patient Records regulations: The Federal rules restrict any use of the information to criminally investigate or prosecute any alcohol or drug abuse patient.[facility] HospitalIn the event this information is protected by the Federal Confidentiality of Alcohol and Drug Abuse Patient Records regulations: The Federal rules restrict any use of the information to criminally investigate or prosecute any alcohol or drug abuse patient.[facility] HospitalIn the event this information is protected by the Federal Confidentiality of Alcohol and Drug Abuse Patient Records regulations: The Federal rules restrict any use of the information to criminally investigate or prosecute any alcohol or drug abuse patient.[facility] HospitalIn the event this information is protected by the Federal Confidentiality of Alcohol and Drug Abuse Patient Records regulations: The Federal rules restrict any use of the information to criminally investigate or prosecute any alcohol or drug abuse patient.[facility] HospitalIn the event this information is protected by the Federal Confidentiality of Alcohol and Drug Abuse Patient Records regulations: The Federal rules restrict any use of the information to criminally investigate or prosecute any alcohol or drug abuse patient.[facility] HospitalIn the event this information is protected by the Federal Confidentiality of Alcohol and Drug Abuse Patient Records regulations: The Federal rules restrict any use of the information to criminally investigate or prosecute any alcohol or drug abuse patient.[facility] HospitalIn the event this information is protected by the Federal Confidentiality of Alcohol and Drug Abuse Patient Records regulations: The Federal rules restrict any use of the information to criminally investigate or prosecute any alcohol or drug abuse patient.[facility] HospitalIn the event this information is protected by the Federal Confidentiality of Alcohol and Drug Abuse Patient Records regulations: The Federal rules restrict any use of the information to criminally investigate or prosecute any alcohol or drug abuse patient.[facility] HospitalIn the event this information is protected by the Federal Confidentiality of Alcohol and Drug Abuse Patient Records regulations: The Federal rules restrict any use of the information to criminally investigate or prosecute any alcohol or drug abuse patient.[facility] HospitalIn the event this information is protected by the Federal Confidentiality of Alcohol and Drug Abuse Patient Records regulations: The Federal rules restrict any use of the information to criminally investigate or prosecute any alcohol or drug abuse patient.[facility] HospitalIn the event this information is protected by the Federal Confidentiality of Alcohol and Drug Abuse Patient Records regulations: The Federal rules restrict any use of the information to criminally investigate or prosecute any alcohol or drug abuse patient.[facility] HospitalIn the event this information is protected by the Federal Confidentiality of Alcohol and Drug Abuse Patient Records regulations: The Federal rules restrict any use of the information to criminally investigate or prosecute any alcohol or drug abuse patient.[facility] HospitalIn the event this information is protected by the Federal Confidentiality of Alcohol and Drug Abuse Patient Records regulations: The Federal rules restrict any use of the information to criminally investigate or prosecute any alcohol or drug abuse patient.[facility] HospitalIn the event this information is protected by the Federal Confidentiality of Alcohol and Drug Abuse Patient Records regulations: The Federal rules restrict any use of the information to criminally investigate or prosecute any alcohol or drug abuse patient.[facility] HospitalIn the event this information is protected by the Federal Confidentiality of Alcohol and Drug Abuse Patient Records regulations: The Federal rules restrict any use of the information to criminally investigate or prosecute any alcohol or drug abuse patient.[facility] HospitalIn the event this information is protected by the Federal Confidentiality of Alcohol and Drug Abuse Patient Records regulations: The Federal rules restrict any use of the information to criminally investigate or prosecute any alcohol or drug abuse patient.[facility] HospitalIn the event this information is protected by the Federal Confidentiality of Alcohol and Drug Abuse Patient Records regulations: The Federal rules restrict any use of the information to criminally investigate or prosecute any alcohol or drug abuse patient.[facility] HospitalIn the event this information is protected by the Federal Confidentiality of Alcohol and Drug Abuse Patient Records regulations: The Federal rules restrict any use of the information to criminally investigate or prosecute any alcohol or drug abuse patient.[facility] HospitalIn the event this information is protected by the Federal Confidentiality of Alcohol and Drug Abuse Patient Records regulations: The Federal rules restrict any use of the information to criminally investigate or prosecute any alcohol or drug abuse patient.[facility] HospitalIn the event this information is protected by the Federal Confidentiality of Alcohol and Drug Abuse Patient Records regulations: The Federal rules restrict any use of the information to criminally investigate or prosecute any alcohol or drug abuse patient.[facility] HospitalIn the event this information is protected by the Federal Confidentiality of Alcohol and Drug Abuse Patient Records regulations: The Federal rules restrict any use of the information to criminally investigate or prosecute any alcohol or drug abuse patient.[facility] HospitalIn the event this information is protected by the Federal Confidentiality of Alcohol and Drug Abuse Patient Records regulations: The Federal rules restrict any use of the information to criminally investigate or prosecute any alcohol or drug abuse patient.[facility] HospitalIn the event this information is protected by the Federal Confidentiality of Alcohol and Drug Abuse Patient Records regulations: The Federal rules restrict any use of the information to criminally investigate or prosecute any alcohol or drug abuse patient.[facility] HospitalIn the event this information is protected by the Federal Confidentiality of Alcohol and Drug Abuse Patient Records regulations: The Federal rules restrict any use of the information to criminally investigate or prosecute any alcohol or drug abuse patient.[facility] HospitalIn the event this information is protected by the Federal Confidentiality of Alcohol and Drug Abuse Patient Records regulations: The Federal rules restrict any use of the information to criminally investigate or prosecute any alcohol or drug abuse patient.[facility] HospitalIn the event this information is protected by the Federal Confidentiality of Alcohol and Drug Abuse Patient Records regulations: The Federal rules restrict any use of the information to criminally investigate or prosecute any alcohol or drug abuse patient.[facility] HospitalIn the event this information is protected by the Federal Confidentiality of Alcohol and Drug Abuse Patient Records regulations: The Federal rules restrict any use of the information to criminally investigate or prosecute any alcohol or drug abuse patient.[facility] HospitalIn the event this information is protected by the Federal Confidentiality of Alcohol and Drug Abuse Patient Records regulations: The Federal rules restrict any use of the information to criminally investigate or prosecute any alcohol or drug abuse patient.[facility] HospitalIn the event this information is protected by the Federal Confidentiality of Alcohol and Drug Abuse Patient Records regulations: The Federal rules restrict any use of the information to criminally investigate or prosecute any alcohol or drug abuse patient.[facility] HospitalIn the event this information is protected by the Federal Confidentiality of Alcohol and Drug Abuse Patient Records regulations: The Federal rules restrict any use of the information to criminally investigate or prosecute any alcohol or drug abuse patient.[facility] HospitalIn the event this information is protected by the Federal Confidentiality of Alcohol and Drug Abuse Patient Records regulations: The Federal rules restrict any use of the information to criminally investigate or prosecute any alcohol or drug abuse patient.[facility] HospitalIn the event this information is protected by the Federal Confidentiality of Alcohol and Drug Abuse Patient Records regulations: The Federal rules restrict any use of the information to criminally investigate or prosecute any alcohol or drug abuse patient.[facility] HospitalIn the event this information is protected by the Federal Confidentiality of Alcohol and Drug Abuse Patient Records regulations: The Federal rules restrict any use of the information to criminally investigate or prosecute any alcohol or drug abuse patient.[facility] HospitalIn the event this information is protected by the Federal Confidentiality of Alcohol and Drug Abuse Patient Records regulations: The Federal rules restrict any use of the information to criminally investigate or prosecute any alcohol or drug abuse patient.[facility] HospitalIn the event this information is protected by the Federal Confidentiality of Alcohol and Drug Abuse Patient Records regulations: The Federal rules restrict any use of the information to criminally investigate or prosecute any alcohol or drug abuse patient.[facility] HospitalIn the event this information is protected by the Federal Confidentiality of Alcohol and Drug Abuse Patient Records regulations: The Federal rules restrict any use of the information to criminally investigate or prosecute any alcohol or drug abuse patient.[facility] HospitalIn the event this information is protected by the Federal Confidentiality of Alcohol and Drug Abuse Patient Records regulations: The Federal rules restrict any use of the information to criminally investigate or prosecute any alcohol or drug abuse patient.[facility] HospitalIn the event this information is protected by the Federal Confidentiality of Alcohol and Drug Abuse Patient Records regulations: The Federal rules restrict any use of the information to criminally investigate or prosecute any alcohol or drug abuse patient.[facility] HospitalIn the event this information is protected by the Federal Confidentiality of Alcohol and Drug Abuse Patient Records regulations: The Federal rules restrict any use of the information to criminally investigate or prosecute any alcohol or drug abuse patient.[facility] HospitalIn the event this information is protected by the Federal Confidentiality of Alcohol and Drug Abuse Patient Records regulations: The Federal rules restrict any use of the information to criminally investigate or prosecute any alcohol or drug abuse patient.[facility] HospitalIn the event this information is protected by the Federal Confidentiality of Alcohol and Drug Abuse Patient Records regulations: The Federal rules restrict any use of the information to criminally investigate or prosecute any alcohol or drug abuse patient.[facility] HospitalIn the event this information is protected by the Federal Confidentiality of Alcohol and Drug Abuse Patient Records regulations: The Federal rules restrict any use of the information to criminally investigate or prosecute any alcohol or drug abuse patient.[facility] HospitalIn the event this information is protected by the Federal Confidentiality of Alcohol and Drug Abuse Patient Records regulations: The Federal rules restrict any use of the information to criminally investigate or prosecute any alcohol or drug abuse patient.[facility] HospitalIn the event this information is protected by the Federal Confidentiality of Alcohol and Drug Abuse Patient Records regulations: The Federal rules restrict any use of the information to criminally investigate or prosecute any alcohol or drug abuse patient.[facility] HospitalIn the event this information is protected by the Federal Confidentiality of Alcohol and Drug Abuse Patient Records regulations: The Federal rules restrict any use of the information to criminally investigate or prosecute any alcohol or drug abuse patient.[facility] HospitalIn the event this information is protected by the Federal Confidentiality of Alcohol and Drug Abuse Patient Records regulations: The Federal rules restrict any use of the information to criminally investigate or prosecute any alcohol or drug abuse patient.[facility] HospitalIn the event this information is protected by the Federal Confidentiality of Alcohol and Drug Abuse Patient Records regulations: The Federal rules restrict any use of the information to criminally investigate or prosecute any alcohol or drug abuse patient.[facility] HospitalIn the event this information is protected by the Federal Confidentiality of Alcohol and Drug Abuse Patient Records regulations: The Federal rules restrict any use of the information to criminally investigate or prosecute any alcohol or drug abuse patient.[facility] HospitalIn the event this information is protected by the Federal Confidentiality of Alcohol and Drug Abuse Patient Records regulations: The Federal rules restrict any use of the information to criminally investigate or prosecute any alcohol or drug abuse patient.[facility] Reason for Visit (unrecogniz ed section and content) Reason Comments Physical Therapy Specialty Diagnoses / Procedures Referred By Rayshawn brooks Referred To Contact [facility] Diagnoses Lumbar pain Left hip pain M54.50 (ICD-10-CM) - Lumbar pain M25.552 (ICD-10-CM) - Left hip pain Procedures CONSULT TO PHYSICAL THERAPY PHYSICAL THERAPY EVALUATION HIGH COMPLEX 45 MINS Podlogar, NEPTALI Goldberg.WILLOW WORKER [address] [place] [address] [facility] [address] [place] [id number] Referral ID Status Reason Start Date Expiration Date Visits Requested Visits Authorized [id number] Authorized Auto-Generat ed Referral 10/09/2022 10/08/2023 99 [...] MD [address] [place] [address] [place] [address] Referral ID Status Reason Start Date Expiration Date V isits Requested Visits Authorized [id number] Closed Auto-Generate d Referral 02/02/2023 03/03/2024 1 [...] disease Procedures CONSULT TO GENERAL SURGERY OFFICE/OUTPATIENT [facility] 60 MINUTES Perry Bautista MD [address] [place] [address] Referral ID Status Reason Start Date Expiration Date V isits Requested Visits Authorized [id number] Closed PCP Requested Referral 04/24/2024 04/24/2025 1 [...] IMAG INC GB W/PHARMA INTERVENJ Fanta Trammell, COLLECTIONS ASSISTANT.WILLOW WORKER [address] [place] [address] Phone: tel: fax: [facility] [address] [place] [address] Phone: tel: Referral ID Status Reason Start Date Expiration Date V isits Requested Visits Authorized [id number] Closed Auto-Generate d Referral 03/05/2025 04/04/2026 1 1 Reason Comments Refill Request Reason Comments Follow Up Discuss results Care Teams (unrecognized sec tion and content) Manager Zone Relationship Specialty Start Date End Date Podlogar, Ashlyn, COLLECTIONS ASSISTANT.WILLOW WORKER [address] [place], [place] [id number] PCP - General Family Practice 11/15/21 [place] Thornton Consulting Endocrinology 12/09/15 Manager Zone Relationship Specialty Start Date End Date Podlogar, Ashlyn, COLLECTIONS ASSISTANT.WILLOW WORKER [address] [place], [place] [id number] PCP - General Family Practice 11/15/21 [place] Thornton Consulting Endocrinology 12/09/15 Manager Zone Relationship Specialty Start Date End Date Podlogar, Ashlyn, COLLECTIONS ASSISTANT.WILLOW WORKER [address] [place] [address] PCP - General Family Medicine 11/15/21 Jamaica Thornton MD Consulting Endocrinology 12/09/15 Manager Zone Relationship Specialty Start Date End Date Podlogar, Ashlyn, COLLECTIONS ASSISTANT.WILLOW WORKER [address] [place] [address] PCP - General Family Medicine 11/15/21 Jamaica Thornton MD Consulting Endocrinology 12/09/15 Manager Zone Relationship Specialty Start Date End Date Podlogar, Ashlyn, COLLECTIONS ASSISTANT.WILLOW WORKER [address] [place] [address] PCP - General Family Medicine 11/15/21 Jamaica Thornton MD Consulting Endocrinology 12/09/15 Manager Zone Relationship Specialty Start Date End Date Podlogar, Ashlyn, COLLECTIONS ASSISTANT.WILLOW WORKER [address] [place] [address] PCP - General Family Medicine 11/15/21 Jamaica Thornton MD Consulting Endocrinology 12/09/15 Manager Zone Relationship Specialty Start Date End Date Podlogar, Ashlyn, COLLECTIONS ASSISTANT.WILLOW WORKER [address] [place] [address] PCP - General Family Medicine 11/15/21 Jamaica Thornton MD Consulting Endocrinology 12/09/15 Manager Zone Relationship Specialty Start Date End Date Podlogar, Ashlyn, COLLECTIONS ASSISTANT.WILLOW WORKER [address] [place] [address] PCP - General Family Medicine 11/15/21 Jamaica Thornton MD Consulting Endocrinology 12/09/15 Manager Zone Relationship Specialty Start Date End Date Podlogar, Ashlyn, COLLECTIONS ASSISTANT.WILLOW WORKER [address] [place] [address] PCP - General Family Medicine 11/15/21 Jamaica Thornton MD Consulting Endocrinology 12/09/15 Manager Zone Relationship Specialty Start Date End Date Podlogar, Ashlyn, COLLECTIONS ASSISTANT.WILLOW WORKER [address] [place] [address] PCP - General Family Medicine 11/15/21 Jamaica Thornton MD Consulting Endocrinology 12/09/15 Manager Zone Relationship Specialty Start Date End Date Podlogar, Ashlyn, COLLECTIONS ASSISTANT.WILLOW WORKER [address] [place] [address] PCP - General Family Medicine 11/15/21 Jamaica Thornton MD Consulting Endocrinology 12/09/15 Manager Zone Relationship Specialty Start Date End Date Podlogar, Ashlyn, COLLECTIONS ASSISTANT.WILLOW WORKER [address] [place] [address] PCP - General Family Medicine 11/15/21 Jamaica Thornton MD Consulting Endocrinology 12/09/15 Manager Zone Relationship Specialty Start Date End Date Podlogar, Ashlyn, COLLECTIONS ASSISTANT.WILLOW WORKER [address] [place] [address] PCP - General Family Medicine 11/15/21 Jamaica Thornton MD Consulting Endocrinology 12/09/15 Manager Zone Relationship Specialty Start Date End Date Podlogar, Ashlyn, COLLECTIONS ASSISTANT.WILLOW WORKER [address] [place] [address] PCP - General Family Medicine 11/15/21 Jamaica Thornton MD Consulting Endocrinology 12/09/15 Manager Zone Relationship Specialty Start Date End Date Podlogar, Ashlyn, COLLECTIONS ASSISTANT.WILLOW WORKER [address] [place] [address] PCP - General Family Medicine 11/15/21 [place] Thornton MD Consulting Endocrinology 12/09/15 Manager Zone Relationship Specialty Start Date End Date Podlogar, Ashlyn, COLLECTIONS ASSISTANT.WILLOW WORKER [address] [place] [address] PCP - General Family Medicine 11/15/21 Jamaica Thornton MD Consulting Endocrinology 12/09/15 Manager Zone Relationship Specialty Start Date End Date Podlogar, Ashlyn, COLLECTIONS ASSISTANT.WILLOW WORKER [address] [place] [address] PCP - General Family Medicine 11/15/21 Jamaica Thornton MD Consulting Endocrinology 12/09/15 Manager Zone Relationship Specialty Start Date End Date Podlogar, Ashlyn, COLLECTIONS ASSISTANT.WILLOW WORKER [address] [place] [address] PCP - General Family Medicine 11/15/21 Jamaica Thornton MD Consulting Endocrinology 12/09/15 Manager Zone Relationship Specialty Start Date End Date Podlogar, Ashlyn, COLLECTIONS ASSISTANT.WILLOW WORKER [address] [place] [address] PCP - General Family Medicine 11/15/21 Jamaica Thornton MD Consulting Endocrinology 12/09/15 Manager Zone Relationship Specialty Start Date End Date Podlogar, Ashlyn, COLLECTIONS ASSISTANT.WILLOW WORKER [address] [place] [address] PCP - General Family Medicine 11/15/21 Jamaica Thornton MD Consulting Endocrinology 12/09/15 Manager Zone Relationship Specialty Start Date End Date Podlogar, Ashlyn, COLLECTIONS ASSISTANT.WILLOW WORKER [address] [place] [address] PCP - General Family Medicine 11/15/21 Jamaica Thornton MD Consulting Endocrinology 12/09/15 Manager Zone Relationship Specialty Start Date End Date Podlogar, Ashlyn, COLLECTIONS ASSISTANT.WILLOW WORKER [address] [place] [address] PCP - General Family Medicine 11/15/21 Jamaica Thornton MD Consulting Endocrinology 12/09/15 Manager Zone Relationship Specialty Start Date End Date Podlogar, Ashlyn, COLLECTIONS ASSISTANT.WILLOW WORKER [address] [place] [address] PCP - General Family Medicine 11/15/21 Jamaica Thornton MD Consulting Endocrinology 12/09/15 Manager Zone Relationship Specialty Start Date End Date Perry Bautista MD [address] [place] [address] PCP - General Family Medicine 07/18/23 Jamaica Thornton MD Consulting Endocrinology 12/09/15 Manager Zone Relationship Specialty Start Date End Date Perry Bautista MD [address] [place] [address] PCP - General Family Medicine 07/18/23 Jamaica Thornton MD Consulting Endocrinology 12/09/15 Manager Zone Relationship Specialty Start Date End Date PodlogarAshlyn APRN.WILLOW WORKER [address] [place] [address] PCP - General Family Medicine 11/15/21 07/17/23 Jamaica Thornton MD Consulting Endocrinology 12/09/15 Manager Zone Relationship Specialty Start Date End Date PodlogAshlyn luevano APRN.WILLOW WORKER [address] [place] [address] PCP - General Family Medicine 11/15/21 07/17/23 Jamaica Thornton MD Consulting Endocrinology 12/09/15 Manager Zone Relationship Specialty Start Date End Date Perry Bautista MD [address] [place], [place] 927411 PCP - General Family Medicine 07/18/23 Jamaica Thornton MD Consulting Endocrinology 12/09/15 Manager Zone Relationship Specialty Start Date End Date Perry Bautista MD [address] [place], [place] 201781 PCP - General Family Medicine 07/18/23 Jamaica Thornton MD Consulting Endocrinology 12/09/15 Manager Zone Relationship Specialty Start Date End Date Perry Bautista MD [address] [place], [place] 6727[address] PCP - General Family Medicine 07/18/23 Jamaica Thornton MD Consulting Endocrinology 12/09/15 Manager Zone Relationship Specialty Start Date End Date Perry Bautista MD [address] [place], [place] 879141 PCP - General Family Medicine 07/18/23 Jamaica Thornton MD Consulting Endocrinology 12/09/15 Manager Zone Relationship Specialty Start Date End Date Perry Bautista MD [address] [place], [place] [id number] PCP - General Family Medicine 07/18/23 Jamaica Thornton MD Consulting Endocrinology 12/09/15 Manager Zone Relationship Specialty Start Date End Date Perry Bautista MD [address] [place] [address] PCP - General Family Medicine 07/18/23 Jamaica Thornton MD Consulting Endocrinology 12/09/15 Manager Zone Relationship Specialty Start Date End Date Perry Bautista MD [address] [place], [place] [id number] [phone] PCP - General Family Medicine 07/18/23 Jamaica Thornton MD Consulting Endocrinology 12/09/15 Manager Zone Relationship Specialty Start Date End Date Perry Bautista MD [address] [place], [place] [id number] PCP - General Family Medicine 07/18/23 Jamaica Thornton MD Consulting Endocrinology 12/09/15 Manager Zone Relationship Specialty Start Date End Date Perry Bautista MD [address] [place] [address] PCP - General Family Medicine 07/18/23 Jamaica Thornton MD Consulting Endocrinology 12/09/15 Manager Zone Relationship Specialty Start Date End Date Perry Bautista MD [address] [place], [place] 724281 PCP - General Family Medicine 07/18/23 Jamaica Thornton MD Consulting Endocrinology 12/09/15 Manager Zone Relationship Specialty Start Date End Date Perry Bautista MD [address] [place], [place] 984631 PCP - General Family Medicine 07/18/23 Jamaica Thornton MD Consulting Endocrinology 12/09/15 Manager Zone Relationship Specialty Start Date End Date Perry Bautista MD [address] [place], [place] 888201 PCP - General Family Medicine 07/18/23 Jamaica Thornton MD Consulting Endocrinology 12/09/15 Manager Zone Relationship Specialty Start Date End Date Perry Bautista MD [address] [place], [place] 183721 PCP - General Family Medicine 07/18/23 Jamaica Thornton MD Consulting Endocrinology 12/09/15 Manager Zone Relationship Specialty Start Date End Date Perry Bautista MD [address] [place] [address] PCP - General Family Medicine 07/18/23 Jamaica Thornton MD Consulting Endocrinology 12/09/15 Manager Zone Relationship Specialty Start Date End Date Perry Bautista MD [address] [place] [address] PCP - General Family Medicine 07/18/23 Jamaica Thornton MD Consulting Endocrinology 12/09/15 Manager Zone Relationship Specialty Start Date End Date Perry Bautista MD [address] [place], [place] [id number] PCP - General Family Medicine 07/18/23 Jamaica Thornton MD Consulting Endocrinology 12/09/15 Manager Zone Relationship Specialty Start Date End Date Perry Bautista MD [address] [place], [place] 997051 PCP - General Family Medicine 07/18/23 Jamaica Thornton MD Consulting Endocrinology 12/09/15 Manager Zone Relationship Specialty Start Date End Date Ashlyn Keita APRN.CNP [address] [place] [address] PCP - General Family Medicine 11/15/21 07/17/23 Jamaica Thornton MD Consulting Endocrinology 12/09/15 Manager Zone Relationship Specialty Start Date End Date Podlogar, Ashlyn, COLLECTIONS ASSISTANT.WILLOW WORKER [address] [facility] [address] PCP - General Family Medicine 11/15/21 07/17/23 Jamaica Thornton MD Consulting Endocrinology 12/09/15 Manager Zone Relationship Specialty Start Date End Date Podlogar, Ashlyn, COLLECTIONS ASSISTANT.WILLOW WORKER [address] [place], [place] 948601 PCP - General Family Medicine 11/15/21 07/17/23 Jamaica Thornton MD Consulting Endocrinology 12/09/15 Manager Zone Relationship Specialty Start Date End Date Podlogar, Ashlyn, COLLECTIONS ASSISTANT.WILLOW WORKER [address] [facility] [place] [place] [address] PCP - General Family Medicine 11/15/21 07/17/23 Jamaica Thornton MD Consulting Endocrinology 12/09/15 Manager Zone Relationship Specialty Start Date End Date Perry Bautista MD [address] [facility] [place] [place] [address] PCP - General Family Medicine 07/18/23 Jamaica Thornton MD Consulting Endocrinology 12/09/15 Manager Zone Relationship Specialty Start Date End Date Perry Bautista MD [address] [place] [address] PCP - General Family Medicine 07/18/23 Jamaica Thornton MD Consulting Endocrinology 12/09/15 Podlogar, Ashlyn, COLLECTIONS ASSISTANT.WILLOW WORKER [address] [place] [address] Fsr Family Medicine 09/14/24 Manager Zone Relationship Specialty Start Date End Date Perry Bautista MD [address] [place] [address] PCP - General Family Medicine 07/18/23 Jamaica Thornton MD Consulting Endocrinology 12/09/15 Podlogar, Ashlyn, COLLECTIONS ASSISTANT.WILLOW WORKER [address] [place] [address] Fsr Family Medicine 09/14/24 Manager Zone Relationship Specialty Start Date End Date Perry Bautista MD [address] [place] [address] PCP - General Family Medicine 07/18/23 Jamaica Thornton MD Consulting Endocrinology 12/09/15 Podlogar, Ashlyn, COLLECTIONS ASSISTANT.WILLOW WORKER [address] [place] [address] Fsr Family Medicine 09/14/24 Manager Zone Relationship Specialty Start Date End Date Perry Bautista MD [address] [place] [address] PCP - General Family Medicine 07/18/23 [place] Thornton MD Consulting Endocrinology 12/09/15 Podlogar, Ashlyn, COLLECTIONS ASSISTANT.WILLOW WORKER [address] [place] [address] Fsr Family Medicine 09/14/24 Manager Zone Relationship Specialty Start Date End Date Perry Bautista MD [address] [place] [address] PCP - General Family Medicine 07/18/23 [place] Thornton MD Consulting Endocrinology 12/09/15 Podlogar, Ashlyn, COLLECTIONS ASSISTANT.WILLOW WORKER [address] [place] [address] Fsr Family Medicine 09/14/24 Manager Zone Relationship Specialty Start Date End Date Perry Bautista MD [address] [place] [address] PCP - General Family Medicine 07/18/23 [place] Thornton MD Consulting Endocrinology 12/09/15 Podlogar, Ashlyn, COLLECTIONS ASSISTANT.WILLOW WORKER [address] [place] [address] Fsr Family Medicine 09/14/24 Manager Zone Relationship Specialty Start Date End Date Perry Bautista MD [address] [place] [address] PCP - General Family Medicine 07/18/23 Jamaica Thornton MD Consulting Endocrinology 12/09/15 Podlogar, NEPTALI Goldberg.WILLOW WORKER [address] [place] [address] Fsr Family Medicine 09/14/24 Manager Zone Relationship Specialty Start Date End Date Perry Bautista MD [address] [place] [address] PCP - General Family Medicine 07/18/23 Jamaica Thornton MD Consulting Endocrinology 12/09/15 Podlogar, NEPTALI Goldberg.WILLOW WORKER [address] [place] [address] Fsr Family Medicine 09/14/24 Manager Zone Relationship Specialty Start Date End Date Perry Bautista MD [address] [place] [address] PCP - General Family Medicine 07/18/23 [place] Thornton MD Consulting Endocrinology 12/09/15 Podlogar, NEPTALI Goldberg.WILLOW WORKER [address] [place] [address] Fsr Family Medicine 09/14/24 Manager Zone Relationship Specialty Start Date End Date Perry Bautista MD [address] [place] [address] PCP - General Family Medicine 07/18/23 Jamaica Thornton MD Consulting Endocrinology 12/09/15 Podlogar, NEPTALI Goldberg.WILLOW WORKER [address] [place] [address] Fsr Family Medicine 09/14/24 Manager Zone Relationship Specialty Start Date End Date Perry Bautista MD [address] [place] [address] PCP - General Family Medicine 07/18/23 Jamaica Thornton MD Consulting Endocrinology 12/09/15 Podlogar, NEPTALI Goldberg.WILLOW WORKER [address] [place] [address] Fsr Family Medicine 09/14/24 Manager Zone Relationship Specialty Start Date End Date Perry Bautista MD [address] [place] [address] PCP - General Family Medicine 07/18/23 Jamaica Thornton MD Consulting Endocrinology 12/09/15 Podlogar, Ashlyn COLLECTIONS ASSISTANT.WILLOW WORKER [address] [place] [address] Fsr Family Medicine 09/14/24 Regine Ivey COLLECTIONS ASSISTANT.WILLOW WORKER [address] [place] [address] [facility]ly [facility] 12/20/24 Manager Zone Relationship Specialty Start Date End Date Perry Bautista MD [address] [place] [address] PCP - General Family Medicine 07/18/23 [place] Thornton MD Consulting Endocrinology 12/09/15 Podlogar, NEPTALI Goldberg.WILLOW WORKER [address] [place] [address] Fsr Family Medicine 09/14/24 Regine Ivey COLLECTIONS ASSISTANT.WILLOW WORKER [address] [place] [address] [facility]ly [facility] 12/30/24 Manager Zone Relationship Specialty Start Date End Date Perry Bautista MD [address] [place] [address] PCP - General Family Medicine 07/18/23 Jamaica Thornton MD Consulting Endocrinology 12/09/15 PodlogarAshlyn COLLECTIONS ASSISTANT.WILLOW WORKER [address] [place] [address] Fsr Family Medicine 09/14/24 Regine Ivey COLLECTIONS ASSISTANT.WILLOW WORKER [address] [place] [address] [facility] Manager Zone Relationship Specialty Start Date End Date Perry Bautista MD [address] [place] [address] PCP - General Family Medicine 07/18/23 [place] Thornton MD Consulting Endocrinology 12/09/15 Podlogar, Ashlyn COLLECTIONS ASSISTANT.WILLOW WORKER [address] [place] [address] [facility]/24 Regine Ivey COLLECTIONS ASSISTANT.WILLOW WORKER [address] [place] [address] [facility] 12/20/24 12/29/24 Regine Ivey, COLLECTIONS ASSISTANT.WILLOW WORKER [address] [place] [address] [facility] 12/30/24 Manager Zone Relationship Specialty Start Date End Date Perry Bautista MD [address] [place] [address] PCP - General Family Medicine 07/18/23 [place] Thornton MD Consulting Endocrinology 12/09/15 Podlogar, NEPTALI Goldberg.WILLOW WORKER [address] [place] [address] [facility] Family Medicine 09/14/24 Regine Ivey COLLECTIONS ASSISTANT.WILLOW WORKER [address] [place] [address] [facility] Family Medicine 12/30/24 Manager Zone Relationship Specialty Start Date End Date Perry Bautista MD [address] [place], [place] 246[address] PCP - General Family Medicine 07/18/23 [place] Thornton MD Consulting Endocrinology 12/09/15 PodlogarAshlyn APRN.WILLOW WORKER [address] [place] [address] F[facility] Family Medicine 09/14/24 Regine Ivey APRN.WILLOW WORKER [address] [place] [address] [facility] Family Medicine 12/30/24 Manager Zone Relationship Specialty Start Date End Date Perry Bautista MD [address] [place] [address] PCP - General Family Medicine 07/18/23 [place] Thornton MD Consulting Endocrinology 12/09/15 PodlogarAshlyn APRN.WILLOW WORKER [address] [place] [address] Fsr Family Medicine 09/14/24 Regine Ivey APRN.WILLOW WORKER [address] [place] [address] F[facility] Family Medicine 12/30/24 Manager Zone Relationship Specialty Start Date End Date Perry Bautista MD [address] [facility], [place] [address] PCP - General Family Medicine 07/18/23 [place] Thornton MD Consulting Endocrinology 12/09/15 Podlogar, Ashlyn, COLLECTIONS ASSISTANT.WILLOW WORKER [address] [place] [address] [facility] Family Medicine 09/14/24 Manager Zone Relationship Specialty Start Date End Date Perry Bautista MD [address] [place] [address] PCP - General Family Medicine 07/18/23 [place] Thornton MD Consulting Endocrinology 12/09/15 PodlogarAshlyn, COLLECTIONS ASSISTANT.WILLOW WORKER [address] [place] [address] F[facility] Family Medicine 09/14/24 Regine Ivey COLLECTIONS ASSISTANT.WILLOW WORKER [address] [place] [address] [facility] Family Medicine 03/20/25 Manager Zone Relationship Specialty Start Date End Date Perry Bautista MD [address] [place] [address] PCP - General Family Medicine 07/18/23 [place] Thornton MD Consulting Endocrinology 12/09/15 Podlogar, NEPTALI Goldberg.WILLOW WORKER [address] [place] [address] [facility] Medicine 09/14/24 Regine Ivey APRN.WILLOW WORKER [address] [place] [address] [facility]ly [facility] 03/20/25 Manager Zone Relationship Specialty Start Date End Date Perry Bautista MD [address] [place] [address] PCP - General Family Medicine 07/18/23 [place] Thornton MD Consulting Endocrinology 12/09/15 Podlogar, NEPTALI Goldberg.WILLOW WORKER [address] [place] [address] [facility] Medicine 09/14/24 Regine Ivey APRN.WILLOW WORKER [address] [place] [address] [facility] 03/20/25 Manager Zone Relationship Specialty Start Date End Date Perry Bautista MD [address] [place] [address] PCP - General Family Medicine 07/18/23 Jamaica Thornton MD Consulting Endocrinology 12/09/15 Podlogar, NEPTALI Goldberg.WILLOW WORKER [address] [place] [address] [facility] 09/14/24 Regine Ivey COLLECTIONS ASSISTANT.WILLOW WORKER [address] [place], [place] [address] [facility] 03/20/25 Manager Zone Relationship Specialty Start Date End Date Perry Bautista MD [address] [place], [place] [id number] PCP - General Family Medicine 07/18/23 [place] Thornton MD Consulting Endocrinology 12/09/15 Ashlyn Keita APRN.WILLOW WORKER [address] [place], [place] [id number] [facility] 09/14/24 Regine Ivey, NEPTALI.WILLOW WORKER [address] [place] [address] [facility]ly [facility] 03/20/25 Goals (unrecognized section and content) Goals [...] BE BASED ON THE PRIMARY CLINICAL RECORDS. [employer] provides no warranty or guarantee of the accuracy or completeness of information in this document.
--- NOTE | 2025-09-18 21:20 | CASEMGMT ---
Care Management Face to Face with patient for initial transition planning/care coordination assessment in the ED. This feature writer introduced self and role at [facility]. Patient alert and oriented. Patient willing to participate in assessment and is able to answer all questions appropriately. Patient's , Gavin, at bedside. Care providers, pharmacy, and demographics verified. Admitting Diagnosis: Hypotension, Chest pain, Hypoxia Other diagnosis history: CKD stage II, Chronic tachycardia, Goiter, Mitral valve prolapse, Enlarged thyroid gland PCP: Lily Specialists: Damien, cardiology. Chris, urology. Preferred Pharmacy: [facility] [address] Insurance: [employer] Medicare Prescription Benefit: yes Living Will/HPOA: , Gavin. Intends to go get copy from tool distributor. LNOK: Gavin. 2 children. Living Arrangements: lives with in a 2 story home with 1 step to enter. Bedroom is upstairs with a full flight of steps. Reports to be independent with all ADLs/IADLs Transportation: patient drives DME: none; wore O2 in ED for comfort HHC: none SNF/Rehab: none Community Resources: none Behavioral Health History: anxiety and depression, per medical records Patient goals: Patient wishes to discharge home, denies need for home health care at this time. Patient denies any further needs or concerns at this time. Disposition Plan: admission to acute; RN CM/SW to follow for discharge planning needs that may arise. Therese Ahumada, DRUM STRAIGHTENER, HANDTOOLS REPAIRER
[2025-09-18 21:23] LABS: Pro- Brain NATRIURETIC PEPTIDE 1189 pg/mL (<=900)
[2025-09-18 21:24] LABS: CRP < 3.00 mg/L (0.0-3.0); Magnesium 2.3 mg/dL (1.5-2.2)
[2025-09-18 22:32] LABS: Mucous, Urine 0 SEEN /hpf (<or=2+); Red Blood Cells-Urine 0 SEEN /hpf (0-5); Squamous Epithelial Cells - UA 0 SEEN /hpf (5-10)
[2025-09-18] MEDS: 0.9% Saline Lock 10 ML Syringe IV (22:34)
[2025-09-18] MEDS: 0.9% Normal Saline (1000mL) 1,000 ML 100 ML IV (22:35)
[2025-09-18 23:01] LABS: Color, Urine Yellow (Yellow); Glucose, Dipstick Normal (Normal); Ketone-Dipstick Negative (Negative); Leukocyte Esterase-Dipstick 25 /ul (Negative); Nitrite-Dipstick Negative (Negative); Occult Blood-Urine Negative /ul (Negative); Protein-Dipstick 30 mg/dl (Negative); Specific Gravity, Urine 1.010 (1.002-1.030); Urine Bilirubin Dipstick Negative (Negative)
[2025-09-18 23:05] LABS: Troponin T High Sens 4 HR 17 ng/L (<=14)
[2025-09-18 23:15] LABS: CORTISOL PM 5.96 ug/dL (2.68-10.50)
[2025-09-18 23:21] LABS: Procalcitonin < 0.02 ng/mL (<=0.10)
[2025-09-19] VITALS (52 sets, daily range): BP systolic 69–120; BP diastolic 44–82; PULSE 62–105; RESP 9–28; TEMP 36.6–38.7; O2SAT 88–99; BMI 28.6
--- NOTE | 2025-09-19 | US_ITS ---
PROCEDURE: ABDOMEN LIMITED 09/19/2025 REASON FOR EXAM: RUQ PAIN TECHNIQUE: Procedure Code: USABDL Modality: US Procedure: ABDOMEN LIMITED COMPARISON: 09/18/2025 FINDINGS: Liver: Grossly normal size and echotexture. Hepatopetal flow. Multiple hepatic cysts including a 4.5 x 3.9 cm cyst in the left lobe and a 2.7 x 1.9 x 2.5 cm in the right lobe inferiorly. Gallbladder: 3 mm gallbladder polyp. No wall thickening or pericholecystic fluid. Negative Carter's sign. No gallstone. Common bile duct: Normal in size measuring 2 mm. Pancreas: Echogenic appearance of the pancreas. No mass. Kidneys: The right kidney measures 9.4 x 5.5 x 3.2 cm. Renal parenchymal thicknesses and echotextures are preserved. No hydronephrosis. Cysts in the superior mid right kidney measuring 6.5 x 5.9 by 5.6 cm. Peritoneal Findings: No ascites US/Abdomen Limited IMPRESSION: Multiple liver cysts. 6.5 cm cysts in the right kidney. 3 mm gallbladder polyp in the gallbladder. No cholelithiasis or signs of acute cholecystitis. Reading Location: [id number]
[2025-09-19] MEDS: Norepinephrine 8 MG in 0.9% Normal Saline (250mL Bag) 242 ML 9.4 MG CONT INF (01:06)
[2025-09-19] MEDS: 0.9% Saline Lock 10 ML Syringe IV ×3 (01:13→19:55)
--- NOTE | 2025-09-19 01:26 | NURSING ---
0105- patient hit call light after having a few bouts of emesis, RN to bedside 0113- 0.25 ml of planned 1ml dose of Compazine administered by this RN, pt requested this RN to stop administering during dose d/t feeling nauseous and SOB. Patient monitored, no change in vitals or further symptoms, pt stating her nausea/ SOB was better. 0130- Merna fuentes notified of Compazine reaction and that patient vomiting and unable to do bipap currently due to risk for aspiration. Patient consistently coughing/ dry heaving. Respiratory bedside and also listening to patient's lungs, lungs diminished/ no coarse crackles. Informed Merna Fuentes that respiratory doing ABG as pulse ox not reading consistently and oxygen up to 12L high flow
[2025-09-19 01:38] LABS: Allen Test Positive; Base Excess -5 mmol/L (-2 to +2); FI02 12.0; PO2 48 mmHG (75-100); SITE L Radial; SO2 83 % (94-98)
--- NOTE | 2025-09-19 01:53 | RAD_ITS ---
PROCEDURE: CHEST 1 VIEW (PORTABLE) 09/19/2025 REASON FOR EXAM: TO CONFIRM ET PLACEMENT TECHNIQUE: Frontal view of the chest. COMPARISON: CT scan on 09/18/2025. FINDINGS: Endotracheal tube is in good position. Enteric feeding tube is in good position with its tip extending below the level of the left hemidiaphragm. Unchanged retrocardiac hiatal hernia. Interval appearance of interstitial pulmonary congestion. There is no demonstrated pleural abnormality. Enlarged cardiac silhouette. Normal mediastinum and ollie. Normal visualized pulmonary arteries. Atheromatous plaques of the visualized aortic arch and descending thoracic aorta. Diffuse spondylosis of the visualized thoracic spine. Normal visualized ribs, clavicles. Degenerative joint disease. There is no demonstrated abnormality of the visualized soft tissue structures of the upper abdomen. RAD/Chest 1 View (Portable) IMPRESSION: Endotracheal tube is in good position. Enteric feeding tube is in good position with its tip extending below the level of the left hemidiaphragm. Unchanged retrocardiac hiatal hernia. Interval appearance of interstitial pulmonary congestion. Reading Location: [facility]
--- NOTE | 2025-09-19 01:57 | PCM.HOSP.N ---
Hospitalist Note Intubation Note: Patient with evidence of respiratory and/or impending distress. Patient with onset of significant nausea and emesis with significant difficulties with hypoxia requiring increasing level of supplementation. ABG obtained with pO2 48, pCO2 35.3 with consideration for Airvo however given onset of significant nausea and emesis decision for CT of the head to be cautious and concern for ability to lay flat. Patient with onset severe coughing fits with now pink frothy sputum with suspected flash pulmonary edema. Given this presentation patient highly suspicious for cardiogenic shock. We discussed case with cardiology who be consulted Dr. Mejias who agrees this is concerning and agree with current management with plan for intubation, continue norepinephrine and plan for echocardiogram upcoming. Medications administered: Etomidate 20 mg IV x 1, Versed 2 mg IV x 1 initially and also following intubation for sedation prior to ability to initiate fentanyl drip, Precedex drip. ETT size: 7.5 Patient intubated in standard fashion with visualization of the vocal cords and passage of the ETT. Positioning verified with auscultation. Post-intubation CXR requested. Patient maintained already in the ICU with consultation to ICU physician already placed. Procedures Hospitalists Procedures: [id number] Insert Emergency Airway
--- NOTE | 2025-09-19 02:09 | CON.PCM.CC_ITS ---
HPI Consult Data Date of Consult: 09/19/25 HPI Narrative HPI Narrative: Mrs Bang is a 74-year-old woman with chronic kidney disease, mitral valve prolapse, thyroid disease, anxiety/depression, and GERD who presented on 09/18 with dyspepsia and chest/right upper quadrant discomfort initially felt consistent with biliary colic, but was found to be hypoxic with progressive hypotension. She underwent CT/CTA imaging of the chest/abdomen/pelvis that was reportedly negative for aortic dissection/aneurysm and was described as negative for pulmonary embolism on admission, with normal lactate and normal procalcitonin and without fever or toxic appearance. Despite 2 L IV fluids in the ED and ongoing normal saline infusion, she remained hypotensive, requiring escalation to norepinephrine and receiving midodrine 10 mg at 22:34; she also developed worsening dyspnea with productive cough. Because pulse oximetry readings were inconsistent, an ABG was obtained around 01:00 showing pH 7.37 / PaCO2 21 / HCO2 ~20 / PaO2 ~48, prompting a plan for intubation for airway/oxygenation support. Exam/clinical trajectory raised concern for undifferentiated shock with possible mixed physiology, particularly given diminished breath sounds, elevated BNP, and concern she may already be volume overloaded; therefore further fluids were recommended to stop, vasopressor support to continue, and urgent echocardiography to assess cardiac function/valvular pathology was recommended. [facility] Medical History CKD (chronic kidney disease), stage II Chronic tachycardia Goiter Mitral valve prolapse Enlarged thyroid gland Home Medications ?Medication ?Instructions ?Recorded ?Last Taken ?Type cranberry fruit 400 mg capsule 500 mg PO DAILY 8 Unknown History metoprolol succinate 25 mg 25 mg PO DAILY 05/07/24 Unk nown History tablet,extended release 24 hr multivitamin (Daily Multi-Vitamin 1 tab PO DAILY 05/07 Unknown History tablet) ascorbic acid (vitamin C) 500 mg 500 mg PO QDAY Unknown History tablet (C-500) Allergy/AdvReac Type Severity Reaction Status Date / Time doxycycline Allergy Rash Verified 09/18/25 17:14 lidocaine Allergy Anaphylaxis Verified 09/18/25 17:14 brompheniramine AdvReac Unknown PT UNSURE Verified 09/18/25 17:14 OF REACTION amoxicillin (From Augmentin) AdvReac Diarrhea Verified 09/18/25 17:14 bupivacaine AdvReac Angioedema Verified 09/18/25 17:14 carbinoxamine (From Rondec) AdvReac Rash Verified 09/18/25 17:14 clavulanic acid (From AdvReac Diarrhea Verified 09/18/25 17:14 Augmentin) clotrimazole AdvReac Hives Verified 09/18/25 17:14 epinephrine AdvReac Shortness Verified 09/18/25 17:14 of breath erythromycin base (From AdvReac Diarrhea Verified 09/18/25 17:14 E-Mycin) meloxicam AdvReac Diarrhea Verified 09/18/25 17:14 pseudoephedrine (From Rondec) AdvReac Rash Verified 09/18/25 17:14 Family History Mother Heart disease Hypertension Heart failure Father GERD (gastroesophageal reflux disease) Surgical History S/P hysterectomy Social History household members: spouse Smoking Status: Never smoker alcohol intake: never substance use type: does not use ROS ROS Narrative * Constitutional: denies toxic appearance per nurse; afebrile Respiratory: severe dyspnea; productive cough; hypoxemia on ABG Cardiovascular: chest discomfort initially; hypotension requiring vasopressors GI: dyspepsia; RUQ pain; nausea and vomiting beginning ~01:00 Neuro: no focal deficits described; mentation appears intact enough to answer questions : no symptoms reported Skin/MSK: not discussed Objective Data Objective Data Vital Signs: Vital Signs Last response 3 Temperature 36.6 C 09/19/25 01:00 Temperature Source Oral 09/19/25 01:00 Pulse Rate 84 09/19/25 01:00 Pulse Strength Normal (2+) 09/18/25 22:00 Respiratory Rate 18 09/19/25 01:00 Respiratory Effort Normal, Non-Labored 09/18/25 23:49 Respiratory Depth Normal 09/18/25 23:49 Respiratory Pattern Normal 09/18/25 23:49 Blood Pressure 91/63 09/19/25 01:15 Blood Pressure Mean 72 09/19/25 01:15 Blood Pressure Source Monitor 09/19/25 01:00 Blood Pressure Position Semi-Fowlers 09/19/25 01:00 Blood Pressure Location Left Arm 09/19/25 01:00 Pulse Ox 92 09/19/25 01:08 Oxygen Delivery Method High Flow 09/19/25 01:08 Oxygen Flow Rate (L/min) 12 09/19/25 01:08 I&O: I&O Last 24 Hours 3 09/18/25 09/18/25 09/19/25 11:59 23:59 11:59 Intake Total 1999 1.41 / 1.41 Output Total 100 / 100 Balance 1899 1.41 / 1.41 I&O: Total Stay 3 09/18/25 17:11 thru 09/19/25 01:15 Intake Total 2000.41 Output Total 100 Balance 1900.41 Current Meds Ordered / Administered: Current meds ordered / Administered 3 Generic Name Dose Route Start Last Admin Trade Name Freq PRN Reason Stop Dose Admin Acetaminophen 650 mg 09/18/25 21:50 Acetaminophen 325 Mg Tablet PO Q4H PRN PRN Fever, pain -07/18 Al Hydroxide/Mg Hydroxide 30 ml 09/18/25 21:50 Mag Hydrox/Al Hydrox/Simeth 30 Ml Udc PO Q6H PRN PRN Gastric Burning Albuterol Sulfate 2.5 mg 09/18/25 21:50 Albuterol 2.5 Mg/3 Ml Vial.Neb. INHALATION Q2H PRN PRN Dyspnea, wheezing Aspirin 81 mg 09/19/25 08:00 Aspirin 81 Mg Tab.Chew PO BREAKFAST [facility] Chlorhexidine Gluconate 15 ml 09/19/25 10:00 Chlorhexidine 15 Ml PO BID BLAKE Enoxaparin Sodium 40 mg 09/19/25 10:00 Enoxaparin 40 Mg/0.4 Ml Syringe SC DAILY BLAKE Guaifenesin 10 ml 09/18/25 21:50 Guaifenesin 10 Ml Udc (200mg/10ml) PO Q4H PRN PRN COUGH Sodium Chloride 250 mls @ 15 mls/hr 09/18/25 22:00 IV .[id number] PRN Saline Flush Sodium Chloride 250 mls @ 15 mls/hr 09/18/25 22:00 IV .[id number] PRN Additional IVPB Infusion Norepinephrine Bitartrate 8 mg 250 mls @ 9.375 mls/hr 09/19/25 00:50 09/19/25 01:15 / Sodium Chloride CONT INF 5 mcg/min .[id number] BLAKE 9.4 mls/hr Protocol Titration 5 MCG/MIN Pantoprazole Sodium 40 mg/ 100 mls @ 300 mls/hr 09/19/25 01:55 Sodium Chloride IV Q12 BLAKE Fentanyl 100 mls @ 5 mls/hr 09/19/25 01:55 CONT INF UD BLAKE Protocol 50 MCG/HR Melatonin 10 mg 09/18/25 21:50 Melatonin 10 Mg Tablet PO QHS PRN PRN INSOMNIA Midodrine 10 mg 09/18/25 21:50 09/18/25 22:34 Midodrine Hcl 5 Mg Tablet PO 10 mg TIDCM BLAKE Administration Ondansetron HCl 4 mg 09/18/25 21:50 09/18/25 22:35 Ondansetron 4 Mg/2 Ml Vial IV 4 mg Q8H PRN PRN Administration NAUSEA/VOMITING Senna/Docusate Sodium 2 tablet 09/18/25 21:50 Senna/Docusate Sodium 1 Tablet PO BID PRN PRN Constipation Sodium Chloride 10 - 40 ml 09/18/25 22:00 09/19/25 01:13 0.9% Saline Lock 10 Ml Syringe IV 10 ml UD PRN Administration SALINE FLUSH Sodium Chloride 5 ml 09/19/25 01:51 Sodium Cl For Inhalation 15 Ml Vial.Neb. INHALATION Q5M PRN Suctioning Physical Exam Narrative General: Elderly female, acutely ill with severe dyspnea; conversant but distressed by breathlessness; not toxic-appearing per bedside nurse. HEENT: PERRL Cardiovascular: RRR Respiratory: Diminished breath sounds. Abdomen: RUQ discomfort reported; nausea/vomiting. Neuro: Awake/conversant, no focal findings described. Skin/Extremities: Not described. Medical Records Data Attestation: I reviewed the patient's medical records Lab / Micro Data Attestation: I reviewed the patient's lab results. 09/18/25 17:21 09/18/25 17:21 Labs: Laboratory Results - last 24 hr 09/18/25 17:21: WBC 5.1, RBC 4.46, Hgb 13.2, Hct 41.8, MCV 93.7, MCH 29.6, MCHC 31.6 L, RDW Std Deviation 45.0 H, RDW Coeff of Alexa 13.1, Plt Count 190, MPV 11.6, Immature Gran % (Auto) 0.200, Neut % (Auto) 46.3 L, Lymph % (Auto) 41.4 H, Tift % (Auto) 8.0, Eos % (Auto) 3.7, Baso % (Auto) 0.4, Absolute Neuts (auto) 2.4, Absolute Lymphs (auto) 2.12, Nucleated RBC % 0, ESR 4, Sodium 141, Potassium 4.1, Chloride 104, Carbon Dioxide 27.1, Anion Gap 10, BUN 17, Creatinine 0.85, Estim Creat Clear Calc 57.99, Est GFR (MDRD) Non-Af 72, BUN/Creatinine Ratio 19.8, Glucose 101 H, Calcium 9.8, Magnesium 2.4 H, Troponin T High Sens 10, TSH 0.660 09/18/25 19:20: Troponin T Hi Sens 2 Hr 11 09/18/25 20:05: Lactic Acid 1.3, Magnesium 2.3 H, C-React Prot Ext Range < 3.00, Procalcitonin < 0.02, TSH 0.622, Cortisol PM Sample 5.96 09/18/25 20:14: NT pro BNP II 1189 H 09/18/25 22:17: Troponin T Hi Sens 4Hr 17 H 09/18/25 22:22: Urine Color Yellow, Urine Clarity Clear, Urine pH 6.0, Ur Specific [place] 1.010, Urine Protein 30 H, Urine Glucose (UA) Normal, Urine Ketones Negative, Urine Occult Blood Negative, Urine Nitrite Negative, Urine Bilirubin Negative, Urine Urobilinogen Normal, Ur Leukocyte Esterase 25 H, Urine RBC 0 SEEN, Urine WBC 0 SEEN, Ur Squamous Epith Cells 0 SEEN, Urine Bacteria 0 SEEN, Urine Mucus 0 SEEN Micro: Microbiology 09/18/25 22:52 Mucosa - Nasopharyngeal Respiratory Panel (PCR) - Final 09/18/25 22:52 Mucosa - Nose SARS-CoV-2, Influenza & RSV (PCR) - Final 09/18/25 22:08 Nasal Secretion MRSA (PCR) - Final 09/18/25 22:22 Urine, Clean Catch Legionella Antigen - Final 09/18/25 22:22 Urine, Clean Catch Streptococcus pneumoniae Antigen (M - Final ABG Data ABG results: ABG 09/18/25 09/19/25 20:13 01:34 Specimen Type JHONY ART Sample Site Not entered L Radial pH 7.37 Bicarbonate Actual 20.2 L Total CO2 21 Base Excess -5 L O2 Saturation 83 L O2 % 2.0 12.0 ABG pCO2 35.3 ABG pO2 48 L Sreedhar Test Positive VBG pH 7.36 VBG pO2 25 VBG HCO3 26 VBG Total CO2 28 VBG O2 Sat (Calc) 43 L VBG Base Excess 1 POC Mix VBG pCO2 Pt Tmp 46.2 O2 Delivery Device Cannula Cannula Vent Mode Not entered Imaging Radiology Impression Chest/Abdomen/Pelvis CTA 09/18/25 17:51 IMPRESSION: No evidence of aortic dissection or aneurysm. The thoracic and abdominal aorta are normal in caliber with only mild scattered atherosclerosis. Cardiomegaly without pericardial effusion. Pulmonary arteries are patent with no pulmonary embolus. Clear lungs. Numerous hepatic cysts with additional subcentimeter liver lesions that are too small to characterize. Bilateral renal simple cysts. No hydroureteronephrosis. Dense colonic stool burden suspicious for constipation. Enlarged heterogeneous thyroid. Further characterization with nonemergent ultrasound is recommended. Reading Location: [facility] Assessment and Plan . Assessment and plan: Critical Care Time: The entirety of this encounter was done via Telemedicine Severe hypoxemic respiratory failure Assessment: ABG PaO2 ~48 with unreliable pulse ox, ongoing dyspnea, diminished breath sounds; productive cough; imaging reportedly negative for PE and CXR findings not provided. Differential includes cardiogenic pulmonary edema/acute heart failure, aspiration pneumonitis/pneumonia, COPD/asthma exacerbation, occult PE despite report Plan: * Proceed with endotracheal intubation for severe hypoxemia/impending fatigue * Post-intubation: lung-protective ventilation, ABG to guide FiO2/PEEP, CXR to confirm ETT position * Obtain/confirm CXR and review CT images formally * Consider bedside ultrasound for pulmonary edema/effusions if available * Suction and send sputum for culture 2. Shock / hypotension Assessment: Persistent hypotension requiring norepinephrine despite 2 L fluids; not febrile, normal lactate and procalcitonin, WBC normal; BNP elevated and lungs diminished?concern for cardiogenic component or mixed shock. Valvular disease noted; could have acute valvular dysfunction/arrhythmia/heart failure. Plan: * Continue norepinephrine to target MAP >65; titrate based on perfusion * Avoid further fluid boluses given concern for volume intolerance/possible HF * Place central venous catheter for vasoactive meds/hemodynamic monitoring * STAT echocardiogram as soon as available to evaluate LV/RV function, valvular pathology, and volume status; if bedside POCUS available, do immediately * Trend lactate, urine output, mentation; check troponin/ECG if not already done Possible acute decompensated heart failure / cardiogenic pulmonary edema Assessment: BNP ~1189 with hypoxemia and diminished lungs; ongoing fluids may worsen pulmonary congestion; echo pending. Plan: * Hold additional IVF * After airway secured, reassess volume status; consider diuresis if exam/ultrasound supports congestion and BP tolerates * Echo to guide inotrope vs diuresis vs afterload strategy Infection evaluation Assessment: Normal lactate/procalcitonin, afebrile, WBC normal; however shock + respiratory failure warrants continued evaluation, and productive cough raises possibility of pneumonia/aspiration even without classic markers early on. Plan: * Cultures already obtained * Consider empiric antibiotics if clinical suspicion rises, especially after intubation * Monitor WBC, temperature curve, hemodynamics Nausea/vomiting; abdominal pain Assessment: Initial presentation included dyspepsia and RUQ pain thought biliary colic; vomiting started ~01:00; CT A/P reportedly performed and did not reveal dissection/aneurysm; unclear biliary findings. Plan: * Anti-emetics; place OG/NG after intubation for decompression/aspiration risk reduction CKD Assessment: Baseline CKD; renal perfusion at risk due to shock/vasopressors. Plan: * Trend BMP/Cr, strict I/O, avoid nephrotoxins/contrast if possible * Dose-adjust meds for renal function
[2025-09-19] MEDS: Midazolam 2 MG/2 ML Syringe IV ×2 (02:15→02:32)
[2025-09-19] MEDS: fentaNYL drip 100 ML 5 MCG CONT INF (02:22)
--- NOTE | 2025-09-19 02:30 | RAD_ITS ---
PROCEDURE: ABDOMEN SINGLE VIEW (PORTABLE) 09/19/2025 REASON FOR EXAM: CONFIRM OG PLACEMENT TECHNIQUE: Procedure Code: RADABD_P Modality: DX Procedure: ABDOMEN SINGLE VIEW (PORTABLE) COMPARISON: 09/19/2025. FINDINGS: Enteric feeding tube is noted with its tip at the level of the gastric body. The side hole of the tube is probably just below the level of the gastroesophageal junction. It needs to be advanced 2 cm. Retrocardiac hiatal hernia is again noted. There is an unremarkable bowel gas pattern. There is no demonstrated free abdominal air. Normal visualized liver. Normal visualized spleen. Normal visualized kidneys. The soft tissue structures of the pelvis are unremarkable. Diffuse spondylosis. RAD/Abdomen Single View (Portable) IMPRESSION: Enteric feeding tube is noted with its tip at the level of the gastric body. The side hole of the tube is probably just below the level of the gastroesophag eal junction. It needs to be advanced 2 cm. Retrocardiac hiatal hernia is again noted. Reading [facility]
[2025-09-19] MEDS: dexMEDEtomidine 400 MCG in 0.9% Normal Saline (100mL Bag) 96 ML 9.5 MCG CONT INF (02:33)
[2025-09-19] MEDS: Pantoprazole Sodium 40 MG in 0.9% Normal Saline (100mL MB+) 100 ML 300 MG IV ×3 (03:19→21:06)
--- NOTE | 2025-09-19 04:22 | NURSING ---
0158- Dr. Bonita Thakkar bedside to discuss intubation w/ patient. Patient agreeable and informed by Dr. Thakkar that she contacted her and left a VM message. 0215- 2mg versed and 20mg etomidate administered by this RN per Dr. Thakkar. Pt intubated w/ color change @ 0217 w/ 7.5 ett 23 @ lip, bilateral breath sounds auscultated by Latrice GRANADO. OG then placed by this RN and imaging called for placement verification
[2025-09-19 04:36] LABS: Base Excess -6 mmol/L (-2 to +2); FI02 100.0; PEEP 8; PO2 49 mmHG (75-100); RR 14; SITE L Radial; SO2 82 % (94-98)
[2025-09-19 05:13] LABS: Hematocrit 50.2 % (37-47); Hemoglobin 15.7 g/dL (12.0-15.0); Immature Granulocytes Count 0.060 X10^3/uL (0.0-0.0); Mean Corp Hgb Conc 31.3 g/dL (32-36); Mean Corpuscular Volume 94.9 fL (81-99); Mean Platelet Vol. 11.8 fl (6.2-12.0); NRBC Flagged by Analyzer 0 % (0-5); Platelet Count 266 K/mm3 (150-450); RBC Distribution Width CV 13.4 % (11.6-14.6); RBC Distribution Width SD 47.1 fl (35.1-43.9); Red Blood Count 5.29 M/mm3 (4.2-5.4); White Blood Count 15.1 K/mm3 (4.4-11.0)
--- NOTE | 2025-09-19 05:20 | RAD_ITS ---
PROCEDURE: CHEST 1 VIEW (PORTABLE) 09/19/2025 REASON FOR EXAM: DYSPNEA TECHNIQUE: Frontal view of the chest. COMPARISON: 09/19/2025. FINDINGS: Endotracheal tube is in good position. Enteric feeding tube is in good position with its tip extending below the level of the left hemidiaphragm. Unchanged retrocardiac hiatal hernia. Increased interstitial pulmonary congestion. There is no demonstrated pleural abnormality. Enlarged cardiac silhouette. Normal mediastinum and ollie. Normal visualized pulmonary arteries. Atheromatous plaques of the visualized aortic arch and descending thoracic aorta. Diffuse spondylosis of the visualized thoracic spine. Normal visualized ribs, clavicles. Degenerative joint disease. There is no demonstrated abnormality of the visualized soft tissue structures of the upper abdomen. RAD/Chest 1 View (Portable) IMPRESSION: Endotracheal tube is in good position. Enteric feeding tube is in good position with its tip extending below the level of the left hemidiaphragm. Unchanged retrocardiac hiatal hernia. Increased interstitial pulmonary congestion. Reading Location: [facility]
--- NOTE | 2025-09-19 05:26 | ECHOD_ITS ---
Reason For Study Reason For Study: SOB Procedure This was a 2D Doppler, Color Flow transthoracic echocardiogram. The study was technically difficult. Patient scanned supine on the vent. Exam performed portable in ICU/CCU. Left Ventricle Normal left ventricular size. Left ventricular EF by Figueroa's biplane: 65%. Diastolic dysfunction grade indeterminate in the setting of severe MR. No regional wall motion abnormalities noted. Right Ventricle Normal right ventricle. Normal systolic function. RVSP estimated at: 55 to 60 mmHg. Atria Normal sized right atrium. Severely enlarged left atrium. Bubble contrast study is negative for PFO/ASD. Mitral Valve The mitral valve is abnormal. There is posterior prolapse/flail. Severe mitral regurgitation, with pulmonary vein reversal. No mitral stenosis. Tricuspid Valve Not well visualized. Moderate tricuspid regurgitation. No tricuspid stenosis. Aortic Valve Trileaflet aortic valve. Mild aortic regurgitation. No hemodynamically significant aortic stenosis. Pulmonic Valve The pulmonic valve is not well visualized. Great Vessels Normal sized aortic root. Normal ascending aorta. Pericardium/Pleural No pericardial effusion. MMode/2D Measurements & Calculations LVIDd: 5.2 cm IVSd: 1.3 cm Ao root diam: 2.8 cm LVIDs: 2.6 cm LVPWd: 1.1 cm RVDd: 3.6 cm FS: 49.3 % LAV(MOD-bp): 117.9 ml LVAd ap4: 28.8 cm2 LVAd ap2: 27.4 cm2 LAV(MOD-bp) Indexed: 65.1 ml/m2 LVLd ap4: 7.0 cm LVLd ap2: 7.7 cm LAV(MOD-sp2): 127.2 ml EDV(MOD-sp4): 91.8 ml EDV(MOD-sp2): 79.2 ml LAV(MOD-sp4): 110.7 ml EDV(sp4-el): 100.6 ml EDV(sp2-el): 82.8 ml LVAs ap4: 13.5 cm2 LVAs ap2: 13.2 cm2 LVLs ap4: 5.4 cm LVLs ap2: 6.7 cm ESV(MOD-sp4): 29.8 ml ESV(MOD-sp2): 23.7 ml ESV(sp4-el): 28.7 ml ESV(sp2-el): 22.0 ml EF(MOD-sp4): 67.6 % EF(MOD-sp2): 70.1 % EF(sp4-el): 71.5 % SV(MOD-sp4): 62.1 ml SV(MOD-sp2): 55.5 ml EDV(MOD-bp): 86.5 ml SI(MOD-sp4): 34.3 ml/m2 SI(MOD-sp2): 30.6 ml/m2 ESV(MOD-bp): 29.8 ml EF(MOD-bp): 65.6 % SV(sp4-el): 71.9 ml LA dimension(2D): 5.0 cm LA A4 area: 29.6 cm2 RA A4 area: 10.6 cm2 TAPSE: 1.9 cm Time Measurements MV dec time: 0.17 sec Doppler Measurements & Calculations MV E max sabas: 153.7 cm/sec Lat Peak E' Sabas: 11.7 cm/sec Med Peak E' Sabas: 6.3 cm/sec MV A max sabas: 43.7 cm/sec E/E' lat: 13.1 E/E' med: 24.4 MV E/A: 3.5 Ao V2 max: 126.7 cm/sec LV V1 max: 97.4 cm/sec MV dec slope: 928.5 cm/sec2 Ao max P.4 mmHg LV V1 max P.8 mmHg Ao V2 mean: 84.4 cm/sec LV V1 mean P.9 mmHg Ao mean P.2 mmHg LV V1 mean: 62.7 cm/sec Ao V2 VTI: 13.5 cm LV V1 VTI: 10.9 cm AV (velocity ratio): 0.81 PA V2 max: 135.2 cm/sec TR max sabas: 339.1 cm/sec TR max P.0 mmHg ECHO/Echo Complete Interpretation Summary Normal left ventricular systolic function with LVEF by Figueroa's biplane: 65%. No regional left ventricular wall motion abnormalities Normal right ventricular systolic function Severe mitral regurgitation, with posterior leaflet prolapse/flail. Mild aortic regurgitation Moderate tricuspid regurgitation Ordering Physician: Dalton Jennings Referring Physician: Ean Bautista Performed By: Maia Moise RDCS
--- NOTE | 2025-09-19 05:27 | PCM.HOSP.N ---
Hospitalist Note Patient with onset low grade T, given concern for RUQ discomfort with pending GB US and also now onset leukocytosis with L shift in addition to notable episodes of N/V with possibility of aspiration, will start zosyn.
[2025-09-19 05:44] LABS: AST(SGOT) 31 U/L (<=31); Alanine Aminotransfer ALT/SGPT 21 U/L (<=34); Albumin, Serum 4.4 g/dL (3.4-4.8); Alkaline Phosphatase 114 U/L (35-104); Anion Gap 14 (5-15); BUN 19 mg/dL (4-19); BUN/Creat Ratio 17.5 RATIO (10-20); Calcium,Total 9.7 mg/dL (7.6-11.0); Carbon Dioxide 18.9 mmol/L (21.0-32.0); Chloride 107 mmol/L (98-108); Cholesterol 215 mg/dL (<=200); Estimated Creatinine Clearance 45.40 ml/min (50-250); Globulin 3.4 g/dL (2.2-4.2); Glucose 145 mg/dL (70-99); Low Density Lipoprotein Calc. 131 mg/dL; Potassium 5.0 mmol/L (3.3-5.1); Triglycerides 114 mg/dL; Very Low Density Lipoprotein 23 mg/dL (5-40); cholesterol:hdl ratio screen 3.37
[2025-09-19] MEDS: Piperacil/Tazobactam 3.375 GM in 0.9% Normal Saline (50mL MB+) 50 ML IV ×3 (05:54→21:07)
--- NOTE | 2025-09-19 06:59 | NURSING ---
0695- patients called into unit for this RN. Updated him on patient condition. Obtained consent for PICC placement over the phone. he plans to be here @ 0900 for rounds.
[2025-09-19] MEDS: dexMEDEtomidine 400 MCG in 0.9% Normal Saline (100mL Bag) 96 ML 19 MCG CONT INF ×3 (07:08→17:58)
--- NOTE | 2025-09-19 07:21 | PCM.PN.HOSP ---
Reason for Visit Chief Complaint: Chest pain, dyspnea. Subjective Subjective Intubated. Pressors initiated. Objective Data Objective Data Vital Signs: Vital Signs Temp Pulse Resp BP Pulse Ox O2 Del Method O2 Flow Rate 37.8 C H 71 14 101/55 L 99 Mechanical Ventilator 12 09/19/25 06:00 09/19/25 06:54 09/19/25 06:54 09/19/25 06:00 09/19/25 06:54 09/19/25 06:00 09/19/25 01:08 FiO2 100 09/19/25 06:54 Oxygen Flow Rate (L/min) 12 Oxygen Delivery Method Mechanical Ventilator Weight: 75.8 kg Body Mass Index (BMI) 28.6 Intake & Output: Intake and Output for Last 24 Hours 09/17/25 09/18/25 09/19/25 23:59 23:59 23:59 Intake Total 1999 526.70 / 526.70 Output Total 100 / 100 110 / 110 Balance 1900 / 1900 416.70 / 416.70 Lab / Micro Data 09/19/25 04:41 09/19/25 04:41 Labs: Laboratory Results - last 24 hr 09/18/25 17:21: WBC 5.1, RBC 4.46, Hgb 13.2, Hct 41.8, MCV 93.7, MCH 29.6, MCHC 31.6 L, RDW Std Deviation 45.0 H, RDW Coeff of Alexa 13.1, Plt Count 190, MPV 11.6, Immature Gran % (Auto) 0.200, Neut % (Auto) 46.3 L, Lymph % (Auto) 41.4 H, [place] % (Auto) 8.0, Eos % (Auto) 3.7, Baso % (Auto) 0.4, Absolute Neuts (auto) 2.4, Absolute Lymphs (auto) 2.12, Nucleated RBC % 0, ESR 4, Sodium 141, Potassium 4.1, Chloride 104, Carbon Dioxide 27.1, Anion Gap 10, BUN 17, Creatinine 0.85, Estim Creat Clear Calc 57.99, Est GFR (MDRD) Non-Af 72, BUN/Creatinine Ratio 19.8, Glucose 101 H, Calcium 9.8, Magnesium 2.4 H, Troponin T High Sens 10, TSH 0.660 09/18/25 19:20: Troponin T Hi Sens 2 Hr 11 09/18/25 20:05: Lactic Acid 1.3, Magnesium 2.3 H, C-React Prot Ext Range < 3.00, Procalcitonin < 0.02, TSH 0.622, Cortisol PM Sample 5.96 09/18/25 20:14: NT pro BNP II 1189 H 09/18/25 22:17: Troponin T Hi Sens 4Hr 17 H 09/18/25 22:22: Urine Color Yellow, Urine Clarity Clear, Urine pH 6.0, Ur Specific [place] 1.010, Urine Protein 30 H, Urine Glucose (UA) Normal, Urine Ketones Negative, Urine Occult Blood Negative, Urine Nitrite Negative, Urine Bilirubin Negative, Urine Urobilinogen Normal, Ur Leukocyte Esterase 25 H, Urine RBC 0 SEEN, Urine WBC 0 SEEN, Ur Squamous Epith Cells 0 SEEN, Urine Bacteria 0 SEEN, Urine Mucus 0 SEEN 09/19/25 04:41: WBC 15.1 H, RBC 5.29, Hgb 15.7 H, Hct 50.2 H, MCV 94.9, MCH 29.7, MCHC 31.3 L, RDW Std Deviation 47.1 H, RDW Coeff of Alexa 13.4, Plt Count 266, MPV 11.8, Immature Gran % (Auto) 0.400, Neut % (Auto) 80.4 H, Lymph % (Auto) 13.9 L, [place] % (Auto) 4.7, Eos % (Auto) 0.3, Baso % (Auto) 0.3, Absolute Neuts (auto) 12.1 H, Absolute Lymphs (auto) 2.09, Nucleated RBC % 0, Sodium 139, Potassium 5.0, Chloride 107, Carbon Dioxide 18.9 L, Anion Gap 14, BUN 19, Creatinine 1.10, Estim Creat Clear Calc 45.40 L, Est GFR (MDRD) Non-Af 53 L, BUN/Creatinine Ratio 17.5, Glucose 145 H, Calcium 9.7, Total Bilirubin 0.61, AST 31, ALT 21, Alkaline Phosphatase 114 H, Total Protein 7.7, Albumin 4.4, Globulin 3.4, Albumin/Globulin Ratio 1.3, Triglycerides 114, Cholesterol 215 H, LDL Cholesterol, Calc 131, VLDL Cholesterol 23, HDL Cholesterol 64, Cholesterol/HDL Ratio 3.37 Micro: Microbiology 09/18/25 22:52 Mucosa - Nasopharyngeal Respiratory Panel (PCR) - Final 09/18/25 22:52 Mucosa - Nose SARS-CoV-2, Influenza & RSV (PCR) - Final 09/18/25 22:08 Nasal Secretion MRSA (PCR) - Final 09/18/25 22:22 Urine, Clean Catch Legionella Antigen - Final 09/18/25 22:22 Urine, Clean Catch Streptococcus pneumoniae Antigen (M - Final ABG Data ABG results: ABG 09/18/25 09/19/25 09/19/25 20:13 01:34 04:31 Specimen Type JHONY ART ART Sample Site Not entered L Radial L Radial pH 7.37 7.32 L Bicarbonate Actual 20.2 L 19.7 L Total CO2 21 21 Base Excess -5 L -6 L O2 Saturation 83 L 82 L O2 % 2.0 12.0 100.0 ABG pCO2 35.3 38.2 ABG pO2 48 L 49 L Sreedhar Test Positive N/A VBG pH 7.36 VBG pO2 25 VBG HCO3 26 VBG Total CO2 28 VBG O2 Sat (Calc) 43 L VBG Base Excess 1 POC Mix VBG pCO2 Pt Tmp 46.2 Respiration Rate 14 O2 Delivery Device Cannula Cannula Adult Vent Vent Mode Not entered AC Tidal Volume 400.0 POC PEEP 8 Radiography Diagnostic Testing: Radiology Impression Chest/Abdomen/Pelvis CTA 09/18/25 17:51 IMPRESSION: No evidence of aortic dissection or aneurysm. The thoracic and abdominal aorta are normal in caliber with only mild scattered atherosclerosis. Cardiomegaly without pericardial effusion. Pulmonary arteries are patent with no pulmonary embolus. Clear lungs. Numerous hepatic cysts with additional subcentimeter liver lesions that are too small to characterize. Bilateral renal simple cysts. No hydroureteronephrosis. Dense colonic stool burden suspicious for constipation. Enlarged heterogeneous thyroid. Further characterization with nonemergent ultrasound is recommended. Reading Location: [facility] Chest X-Ray 09/19/25 01:53 IMPRESSION: Endotracheal tube is in good position. Enteric feeding tube is in good position with its tip extending below the level of the left hemidiaphragm. Unchanged retrocardiac hiatal hernia. Interval appearance of interstitial pulmonary congestion. Reading Location: [facility] K[facility] X-Ray 09/19/25 02:30 IMPRESSION: Enteric feeding tube is noted with its tip at the level of the gastric body. The side hole of the tube is probably just below the level of the gastroesophageal junction. It needs to be advanced 2 cm. Retrocardiac hiatal hernia is again noted. [facility] 09/19/25 05:20 IMPRESSION: Endotracheal tube is in good position. Enteric feeding tube is in good position with its tip extending below the level of the left hemidiaphragm. Unchanged retrocardiac hiatal hernia. Increased interstitial pulmonary congestion. Reading Location: [facility] Physical Exam Narrative POCUS: Indication is respiratory failure. IVC visualized and was dilated to 2 cm with minimal respiratory variation. Apical view of the heart shows grossly normal LV function but abnormal mitral valve leaflet movement laterally. Const Constitutional Narrative: intubated sedated. HEENT head/scalp atraumatic and moist oral mucous membranes Resp Resp Narrative: Coarse breath sounds bilaterally Cardio regular rate, regular rhythm, S1 normal heart sound and S2 normal heart sound GI normal to inspection, nondistended, normoactive bowel sounds, soft to palpation, non-tender and non-distended Extremity normal to inspection and full ROM Assessment & Plan Assessment/Plan (1) Hypotension: (2) Chest pain: (3) Hypoxia: PLAN: Plan Acute hypoxic respiratory failure Secondary to CHF exacerbation and possible pneumonia Holding off on diuretics given hypotension at this time. On pip-tazo Pulmonary consultation Strep and Legionella antigens negative, sputum culture pending. COVID, influenza and RSV negative. DW Dr. Jennings, concerning for CHF in what appears to be severe MR Undifferentiated shock Cardiogenic versus distributive versus obstructive Noted mitral valve murmur. Cardiology to read. Acute HFpEF Echo showed an EF of 65% with severe mitral regurgitation with posterior leaflet prolapse flail. Given her acute presentation this is suspected to be an acute mitral valve issue. Chronic medical conditions Chronic Kidney Disease Stage II per current GFR trending: Admission BUN/Cr 17/0.5, GFR 72, baseline renal function unknown thus will continue to trend to further elucidate, repeat BMP in AM. Enlarged thyroid with known goiter: Not on any regimen, noted on imaging, encourage follow-up outpatient as previously arranged with ongoing evaluation of the thyroid, TSH normal 0.66. Chronic tachycardia/palpitations: Holding beta-gurinder therapy given hypotensive presentation, may add back once clinically appropriate. DVT prophylaxis: Lovenox. Discussed this case with Drs. Jennings and Magalie. Decision is to transfer the patient. I discussed with Dr. Mejias who advised [facility]. He stated that he would be happy to talk to the cardiology team and his numbers provided when I made the call over to the transfer line at [facility]. Greater than 55 minutes of which vascular time was discussing with specialist, performing bedside evaluation with physical exam and POCUS, discussing with the patient's at bedside and initiating transfer Charges/Coding Visit Charges Inpatient E&M: 53904 Subs Hosp L3
[2025-09-19] MEDS: Chlorhexidine 15 ML PO ×2 (08:04→21:08)
--- NOTE | 2025-09-19 08:10 | PN_ITS ---
Progress Note The patient was admitted yesterday evening with chest discomfort and shortness of breath in the setting of a known history of mitral valve prolapse, which is followed on an outpatient basis by Dr. Quezada of cardiology at [facility]. In the emergency department, the patient was hypotensive at presentation. Therefore, initial fluid resuscitation was undertaken. CT imaging of the chest/abdomen/pelvis was completed which demonstrated no evidence for pulmonary embolism. Cardiomegaly without effusion was noted. Clear lung villanueva were noted at that time. However, following fluid resuscitation, the patient's respiratory status decompensated. She was noted to have pink frothy sputum and was subsequently intubated. The patient has a significant murmur on examination with stat echocardiogram having been completed early this morning, which demonstrated preserved ejection fraction at 65 to 70% with prolapse of the posterior leaflet of the mitral valve with severe mitral regurgitation and possible rupture of the chordae, along with elevated pulmonary artery systolic pressure and severe left atrial enlargement. At the present time, the patient is on assist-control mode of mechanical ventilation with an FiO2 of 80% and PEEP of 10. She is requiring Levophed at 10 mcg/min to maintain hemodynamic stability. In addition to the aforementioned, the patient was initiated on Zosyn to cover for possible aspiration. In light of the aforementioned cardiac pathology, recommendation was for transfer to a tertiary care facility. This information was conveyed to the attending hospitalist as well.
--- NOTE | 2025-09-19 09:24 | CASEMGMT ---
Tertiary Insurance review for hospitals In-network with [employer] MCR PPO insurance if transfer is recommended is as follows: [facility], [facility], [place], [facility], [facility], [facility], , [facility], [facility], and [place]. Adriane Tran, Discharge Planning Asst.
[2025-09-19 09:43] LABS: Pro- Brain NATRIURETIC PEPTIDE 3115 pg/mL (<=900); Procalcitonin 0.05 ng/mL (<=0.10)
[2025-09-19] MEDS: fentaNYL drip 100 ML 12.5 MCG CONT INF ×2 (10:32→17:58)
[2025-09-19] MEDS: TITRATION PARAMETER CHANGE 1 EACH IV (12:13)
[2025-09-19] MEDS: Norepinephrine 8 MG in 0.9% Normal Saline (250mL Bag) 242 ML 18.8 MG CONT INF (12:24)
--- NOTE | 2025-09-19 13:35 | CASEMGMT ---
Social Work- SW met with spouse Gavin to verify directives. Pt spouse reports that he is HCPOA and was agreeable to bringing documents in. TATO Doherty
--- NOTE | 2025-09-19 14:44 | NURSING ---
Patient taken to the cleaner laboratory equipment at this time 14:45.
--- NOTE | 2025-09-19 14:57 | CON.PCM.CA_ITS ---
Assessment & Plan Assessment/Plan (1) Cardiogenic shock: PLAN: This appears secondary to acute mitral regurgitation secondary to flail leaflet in a patient with mitral valve prolapse. Patient will need to be transferred to a tertiary center for possible surgery. Coronary angiography was done which revealed no significant CAD. Intra-aortic balloon pump was placed to decrease afterload. Patient responded well to it. We were able to decrease the norepinephrine and her blood pressure was still better than when she came down for the procedure. HPI Consult Data Date of Consult: 09/19/25 HPI Narrative Reason for Consultation: Shortness of breath, cardiogenic shock HPI Narrative: LAURYN JOYNER, is a 74 F who presents [with sudden onset of shortness of breath and chest pain. This started yesterday afternoon. In the ER patient was found to be hypotensive, hypoxic. Her cardiac enzymes were negative x 3. Patient ended up getting intubated. She required 100% FiO2 and was also started on norepinephrine drip. Her norepinephrine requirement has been stable for the last 14 hours. Her FiO2 was decreased to 80% and she is saturating at 95%. 2D echo done this morning revealed posterior mitral valve leaflet prolapse with possible flail leaflet and severe MR. EF is preserved. She has severe left atrial enlargement. Patient used to follow-up with [facility] design engineering technician. Patient's says that her diagnosis of new mitral regurgitation is likely new. She was seeing her outside design engineering technician for palpitations and possibly mitral valve prolapse.] [facility] Medical History CKD (chronic kidney disease), stage II Chronic tachycardia Goiter Mitral valve prolapse Enlarged thyroid gland Home Medications ?Medication ?Instructions ?Recorded ?Last Taken ?Type cranberry fruit 400 mg capsule 500 mg PO DAILY 8 Unknown History metoprolol succinate 25 mg 25 mg PO DAILY 05/07/24 Unk nown History tablet,extended release 24 hr multivitamin (Daily Multi-Vitamin 1 tab PO DAILY 05/07 Unknown History tablet) ascorbic acid (vitamin C) 500 mg 500 mg PO QDAY Unknown History tablet (C-500) Allergy/AdvReac Type Severity Reaction Status Date / Time doxycycline Allergy Rash Verified 09/18/25 17:14 lidocaine Allergy Anaphylaxis Verified 09/18/25 17:14 brompheniramine AdvReac Unknown PT UNSURE Verified 09/18/25 17:14 OF REACTION amoxicillin (From Augmentin) AdvReac Diarrhea Verified 09/18/25 17:14 bupivacaine AdvReac Angioedema Verified 09/18/25 17:14 carbinoxamine (From Rondec) AdvReac Rash Verified 09/18/25 17:14 clavulanic acid (From AdvReac Diarrhea Verified 09/18/25 17:14 Augmentin) clotrimazole AdvReac Hives Verified 09/18/25 17:14 epinephrine AdvReac Shortness Verified 09/18/25 17:14 of breath erythromycin base (From AdvReac Diarrhea Verified 09/18/25 17:14 E-Mycin) meloxicam AdvReac Diarrhea Verified 09/18/25 17:14 pseudoephedrine (From Rondec) AdvReac Rash Verified 09/18/25 17:14 Family History Mother Heart disease Hypertension Heart failure Father GERD (gastroesophageal reflux disease) Surgical History S/P hysterectomy Social History household members: spouse Smoking Status: Never smoker alcohol intake: never substance use type: does not use Physical Exam Const Constitutional Narrative: Patient is intubated, sedated HEENT normocephalic Resp Resp Narrative: Intubated. Bilateral air entry is noted. No significant crackles Cardio regular rate Cardio Narrative: Pansystolic murmur is heard in the precordial area Extremity no pedal edema Skin no rashes or lesions noted Charges/Coding Visit Charges Inpatient E&M: 25592 Init Hosp L2 Objective Data Vital Signs: Vital Signs Temp Pulse Resp BP Pulse Ox O2 Del Method O2 Flow Rate 100.6 F H 71 14 97/55 L 96 Mechanical Ventilator 12 09/19/25 11:00 09/19/25 14:41 09/19/25 14:41 09/19/25 11:00 09/19/25 14:41 09/19/25 12:00 09/19/25 01:08 FiO2 80 09/19/25 14:41 Oxygen Flow Rate (L/min) 12 Oxygen Delivery Method Mechanical Ventilator Weight: 167 lb 1.766 oz Body Mass Index (BMI) 28.6 Intake & Output: Intake and Output for Last 24 Hours 09/17/25 09/18/25 09/19/25 23:59 23:59 23:59 Intake Total 1999 1227.49 / 1227.49 Output Total 100 / 100 160 / 160 Balance 1900 / 1900 1067.49 / 1067.49 Lab / Micro Data 09/19/25 04:41 09/19/25 04:41 Labs: Laboratory Results - last 24 hr 09/18/25 17:21: WBC 5.1, RBC 4.46, Hgb 13.2, Hct 41.8, MCV 93.7, MCH 29.6, MCHC 31.6 L, RDW Std Deviation 45.0 H, RDW Coeff of Alexa 13.1, Plt Count 190, MPV 11.6, Immature Gran % (Auto) 0.200, Neut % (Auto) 46.3 L, Lymph % (Auto) 41.4 H, [place] % (Auto) 8.0, Eos % (Auto) 3.7, Baso % (Auto) 0.4, Absolute Neuts (auto) 2.4, Absolute Lymphs (auto) 2.12, Nucleated RBC % 0, ESR 4, Sodium 141, Potassium 4.1, Chloride 104, Carbon Dioxide 27.1, Anion Gap 10, BUN 17, Creatinine 0.85, Estim Creat Clear Calc 57.99, Est GFR (MDRD) Non-Af 72, BUN/Creatinine Ratio 19.8, Glucose 101 H, Calcium 9.8, Magnesium 2.4 H, Troponin T High Sens 10, TSH 0.660 09/18/25 19:20: Troponin T Hi Sens 2 Hr 11 09/18/25 20:05: Lactic Acid 1.3, Magnesium 2.3 H, C-React Prot Ext Range < 3.00, Procalcitonin < 0.02, TSH 0.622, Cortisol PM Sample 5.96 09/18/25 20:14: NT pro BNP II 1189 H 09/18/25 22:17: Troponin T Hi Sens 4Hr 17 H 09/18/25 22:22: Urine Color Yellow, Urine Clarity Clear, Urine pH 6.0, Ur Specific [place] 1.010, Urine Protein 30 H, Urine Glucose (UA) Normal, Urine Ketones Negative, Urine Occult Blood Negative, Urine Nitrite Negative, Urine Bilirubin Negative, Urine Urobilinogen Normal, Ur Leukocyte Esterase 25 H, Urine RBC 0 SEEN, Urine WBC 0 SEEN, Ur Squamous Epith Cells 0 SEEN, Urine Bacteria 0 SEEN, Urine Mucus 0 SEEN 09/19/25 04:41: WBC 15.1 H, RBC 5.29, Hgb 15.7 H, Hct 50.2 H, MCV 94.9, MCH 29.7, MCHC 31.3 L, RDW Std Deviation 47.1 H, RDW Coeff of Alexa 13.4, Plt Count 266, MPV 11.8, Immature Gran % (Auto) 0.400, Neut % (Auto) 80.4 H, Lymph % (Auto) 13.9 L, [place] % (Auto) 4.7, Eos % (Auto) 0.3, Baso % (Auto) 0.3, Absolute Neuts (auto) 12.1 H, Absolute Lymphs (auto) 2.09, Nucleated RBC % 0, Sodium 139, Potassium 5.0, Chloride 107, Carbon Dioxide 18.9 L, Anion Gap 14, BUN 19, Creatinine 1.10, Estim Creat Clear Calc 45.40 L, Est GFR (MDRD) Non-Af 53 L, BUN/Creatinine Ratio 17.5, Glucose 145 H, Calcium 9.7, Total Bilirubin 0.61, AST 31, ALT 21, Alkaline Phosphatase 114 H, NT pro BNP II 3115 H, Total Protein 7.7, Albumin 4.4, Globulin 3.4, Albumin/Globulin Ratio 1.3, Triglycerides 114, C holesterol 215 H, LDL Cholesterol, Calc 131, VLDL Cholesterol 23, HDL Cholesterol 64, Cholesterol/HDL Ratio 3.37, Procalcitonin 0.05 Micro: Microbiology 09/19/25 03:01 Sputum, Induced/Lukens Gram Stain - Final 09/18/25 22:52 Mucosa - Nasopharyngeal Respiratory Panel (PCR) - Final 09/18/25 22:52 Mucosa - Nose SARS-CoV-2, Influenza & RSV (PCR) - Final 09/18/25 22:08 Nasal Secretion MRSA (PCR) - Final 09/18/25 22:22 Urine, Clean Catch Legionella Antigen - Final 09/18/25 22:22 Urine, Clean Catch Streptococcus pneumoniae Antigen (M - Final ABG Data ABG results: ABG 09/18/25 09/19/25 09/19/25 20:13 01:34 04:31 Specimen Type JHONY ART ART Sample Site Not entered L Radial L Radial pH 7.37 7.32 L Bicarbonate Actual 20.2 L 19.7 L Total CO2 21 21 Base Excess -5 L -6 L O2 Saturation 83 L 82 L O2 % 2.0 12.0 100.0 ABG pCO2 35.3 38.2 ABG pO2 48 L 49 L Sreedhar Test Positive N/A VBG pH 7.36 VBG pO2 25 VBG HCO3 26 VBG Total CO2 28 VBG O2 Sat (Calc) 43 L VBG Base Excess 1 POC Mix VBG pCO2 Pt Tmp 46.2 Respiration Rate 14 O2 Delivery Device Cannula Cannula Adult Vent Vent Mode Not entered AC Tidal Volume 400.0 POC PEEP 8 Cardiology Labs/Tests 09/18/25 17:21: WBC 5.1, RBC 4.46, Hgb 13.2, Hct 41.8, MCV 93.7, MCH 29.6, MCHC 31.6 L, Plt Count 190, MPV 11.6, Immature Gran % (Auto) 0.200, Neut % (Auto) 46.3 L, Lymph % (Auto) 41.4 H, [place] % (Auto) 8.0, Eos % (Auto) 3.7, Baso % (Auto) 0.4, Absolute Neuts (auto) 2.4, Nucleated RBC % 0, Sodium 141, Potassium 4.1, Chloride 104, Carbon Dioxide 27.1, Anion Gap 10, BUN 17, Creatinine 0.85, Est GFR (MDRD) Non-Af 72, BUN/Creatinine Ratio 19.8, Glucose 101 H, Calcium 9.8, Magnesium 2.4 H 09/18/25 20:05: Lactic Acid 1.3, Magnesium 2.3 H 09/18/25 20:13: VBG pH 7.36, VBG pO2 25, VBG HCO3 26, VBG O2 Sat (Calc) 43 L, VBG Base Excess 1 09/18/25 22:22: Urine Color Yellow, Urine Clarity Clear, Urine pH 6.0, Ur Specific [place] 1.010, Urine Protein 30 H, Urine Glucose (UA) Normal, Urine Ketones Negative, Urine Occult Blood Negative, Urine Nitrite Negative, Urine Bilirubin Negative, Urine Urobilinogen Normal, Ur Leukocyte Esterase 25 H, Urine RBC 0 SEEN, Urine WBC 0 SEEN 09/19/25 01:34: pH 7.37, Bicarbonate Actual 20.2 L, Base Excess -5 L, O2 Saturation 83 L, ABG pCO2 35.3, ABG pO2 48 L, Sreedhar Test Positive 09/19/25 04:31: pH 7.32 L, Bicarbonate Actual 19.7 L, Base Excess -6 L, O2 Saturation 82 L, ABG pCO2 38.2, ABG pO2 49 L, Sreedhar Test N/A 09/19/25 04:41: WBC 15.1 H, RBC 5.29, Hgb 15.7 H, Hct 50.2 H, MCV 94.9, MCH 29.7, MCHC 31.3 L, Plt Count 266, MPV 11.8, Immature Gran % (Auto) 0.400, Neut % (Auto) 80.4 H, Lymph % (Auto) 13.9 L, [place] % (Auto) 4.7, Eos % (Auto) 0.3, Baso % (Auto) 0.3, Absolute Neuts (auto) 12.1 H, Nucleated RBC % 0, Sodium 139, Potassium 5.0, Chloride 107, Carbon Dioxide 18.9 L, Anion Gap 14, BUN 19, Creatinine 1.10, Est GFR (MDRD) Non-Af 53 L, BUN/Creatinine Ratio 17.5, Glucose 145 H, Calcium 9.7, Total Bilirubin 0.61, Triglycerides 114, Cholesterol 215 H, VLDL Cholesterol 23, HDL Cholesterol 64, Cholesterol/HDL Ratio 3.37 Rhythm: EKG: ECHO: Stress Test: Cardiac Cath: PCI: CT Surgery: Holter monitor: EPS: PPM: CXR: Chest CT Scan: Radiography Diagnostic Testing: Radiology Impression Chest/Abdomen/Pelvis CTA 09/18/25 17:51 IMPRESSION: No evidence of aortic dissection or aneurysm. The thoracic and abdominal aorta are normal in caliber with only mild scattered atherosclerosis. Cardiomegaly without pericardial effusion. Pulmonary arteries are patent with no pulmonary embolus. Clear lungs. Numerous hepatic cysts with additional subcentimeter liver lesions that are too small to characterize. Bilateral renal simple cysts. No hydroureteronephrosis. Dense colonic stool burden suspicious for constipation. Enlarged heterogeneous thyroid. Further characterization with nonemergent ultrasound is recommended. Reading Location: [facility] Chest X-Ray 09/19/25 01:53 IMPRESSION: Endotracheal tube is in good position. Enteric feeding tube is in good position with its tip extending below the level of the left hemidiaphragm. Unchanged retrocardiac hiatal hernia. Interval appearance of interstitial pulmonary congestion. Reading Location: [place] [address] KUB X-Ray 09/19/25 02:30 IMPRESSION: Enteric feeding tube is noted with its tip at the level of the gastric body. The side hole of the tube is probably just below the level of the gastroesophageal junction. It needs to be advanced 2 cm. Retrocardiac hiatal hernia is again noted. Reading Location: [place] [address] Chest X-Ray 09/19/25 05:20 IMPRESSION: Endotracheal tube is in good position. Enteric feeding tube is in good position with its tip extending below the level of the left hemidiaphragm. Unchanged retrocardiac hiatal hernia. Increased interstitial pulmonary congestion. Reading Location: [place] [address] Echocardiogram 09/19/25 05:26 Interpretation Summary Normal left ventricular systolic function with LVEF by Figueroa's biplane: 65%. No regional left ventricular wall motion abnormalities Normal right ventricular systolic function Severe mitral regurgitation, with posterior leaflet prolapse/flail. Mild aortic regurgitation Moderate tricuspid regurgitation Ordering Physician: Dalton Jennings Referring Physician: Ean Bautista Performed By: Maia Moise RDCS A Risk Score for UA/STEMI Assesmment (YES = 1) Risk Stratification Applicable: No
[2025-09-19] MEDS: HEPARIN/D5w 25,000 UNITS 25,000 UNITS/250 ML IV.SOLN. 8.2 UNITS CONT INF (15:30)
--- NOTE | 2025-09-19 16:40 | CL.D_ITS ---
Patient Name: LAURYN JOYNER Study Date: 09/19/2025 Performing: Juan Mejias MD Ht: 64 inches 162.56 cm : 1950 Wt: 167.3 lbs 75.8 kg Age: 74 Gender: female BSA: 1.81 PROCEDURE(S) PERFORMED DC02-(64277)LHC/COR DC14-(56505)IABP INSERTION (IP status) CLINICAL PROFILE AND INDICATIONS Indications: Cardiogenic shock, flail leaflet, severe MR Heart Failure: None CONCLUSIONS No significant obstructive coronary artery disease. Successful intra-aortic balloon pump placement. Balloon pump was started on one-to-one support RECOMMENDATIONS DESCRIPTION OF PROCEDURE The patient arrived to the procedure lab. The risks and benefits of the procedure as well as a full description of our services here and current unavailability of surgical backup were fully explained to the patient and/or their significant other prior to the catheterization. The Timeout was completed, verifying the correct patient and procedure. The patient's procedural site was prepped and draped in the usual fashion. Local anesthetic was given subcutaneously to right groin region with Nesacaine 2%. Using a modified Seldinger technique, arterial access was obtained via the right femoral artery, with Micropuncture set, arterial access was obtained via the right femoral artery, an 8Fr sheath was inserted. Left Coronary Artery selective angiography was performed in multiple views using a 5 Fr. JL4 catheter. Right Coronary Artery selective angiography was then performed in multiple views using a 5 Fr. JR 4 catheter.Arrow 40cc 7.5F UltraFlex IABP - Qty: 1 Each Part #: [id number], A 40cc IABP catheter was inserted into the right femoral artery, IABP settings: 1:1, The IABP catheter and sheath were secured in place w/ 2-0 Silk CORONARY ANGIOGRAPHY DOMINANCE: Right Dominant LEFT MAIN: Mild luminal irregularities LEFT ANTERIOR DESCENDING ARTERY: No significant disease noted CIRCUMFLEX ARTERY: Mild luminal irregularities RIGHT CORONARY ARTERY: No significant disease noted COMPLICATIONS No Complications PROCEDURE MEDICATIONS Versed 2 mg IV Oxygen: 80 % FiO2 via ventilator. See Resp Record for Settings Heparin 25,000u / 250ml D5W @ 10.7 u/hr IV started 09/19/2025 16:19:15 SUMMARY OF HEMODYNAMIC DATA Time AIR REST ECG 15:12:32 AO 84/58 (71) SA 15:37:44 AO 86/57 (70) 15:42:39 Signed By Juan Mejias MD On 09/19/2025 16:39:49 Juan Mejias MD
--- NOTE | 2025-09-19 16:45 | NURSING ---
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
[2025-09-19 20:25] LABS: Hematocrit 42.3 % (37-47); Hemoglobin 13.3 g/dL (12.0-15.0); Immature Granulocytes Count 0.060 X10^3/uL (0.0-0.0); Mean Corp Hgb Conc 31.4 g/dL (32-36); Mean Corpuscular Volume 94.0 fL (81-99); Mean Platelet Vol. 11.7 fl (6.2-12.0); NRBC Flagged by Analyzer 0 % (0-5); Platelet Count 178 K/mm3 (150-450); Prothrombin Time (Protime)PT. 14.6 SECONDS (11.7-14.9); RBC Distribution Width CV 13.5 % (11.6-14.6); RBC Distribution Width SD 46.9 fl (35.1-43.9); Red Blood Count 4.50 M/mm3 (4.2-5.4); White Blood Count 12.8 K/mm3 (4.4-11.0)
[2025-09-19 20:27] LABS: Partial Thromboplast Time 74.2 Seconds (24.1-36.2)
[2025-09-19] MEDS: dexMEDEtomidine 400 MCG in 0.9% Normal Saline (100mL Bag) 96 ML 22.7 MCG CONT INF (23:08)
[2025-09-20] VITALS (13 sets, daily range): BP systolic 77–130; BP diastolic 44–71; PULSE 70–74; RESP 14; TEMP 38.4–38.7; O2SAT 94–97; BMI 29.3
[2025-09-20] MEDS: CHLORHEXIDINE GLUC 2% CLOTH 1 EACH TOWELETTE TOPICAL (00:46)
[2025-09-20] MEDS: fentaNYL drip 100 ML 15 MCG CONT INF ×2 (01:41→08:24)
[2025-09-20] MEDS: 0.9% Saline Lock 10 ML Syringe IV ×2 (02:25→03:20)
[2025-09-20 03:02] LABS: Partial Thromboplast Time 108.2 Seconds (24.1-36.2)
[2025-09-20] MEDS: dexMEDEtomidine 400 MCG in 0.9% Normal Saline (100mL Bag) 96 ML 22.7 MCG CONT INF (03:20)
[2025-09-20 03:40] LABS: Hematocrit 41.8 % (37-47); Hemoglobin 13.4 g/dL (12.0-15.0); Immature Granulocytes Count 0.060 X10^3/uL (0.0-0.0); Mean Corp Hgb Conc 32.1 g/dL (32-36); Mean Corpuscular Volume 94.4 fL (81-99); Mean Platelet Vol. 11.6 fl (6.2-12.0); NRBC Flagged by Analyzer 0 % (0-5); Platelet Count 186 K/mm3 (150-450); RBC Distribution Width CV 13.4 % (11.6-14.6); RBC Distribution Width SD 46.5 fl (35.1-43.9); Red Blood Count 4.43 M/mm3 (4.2-5.4); White Blood Count 13.9 K/mm3 (4.4-11.0)
--- NOTE | 2025-09-20 04:50 | RAD_ITS ---
PROCEDURE: CHEST 1 VIEW (PORTABLE) 09/20/2025 REASON FOR EXAM: RESPIRATORY FAILURE TECHNIQUE: Frontal view of the chest. COMPARISON: September 19, 2025 FINDINGS: Endotracheal tube tip is 5.1 cm above the karol. Enteric tube courses midline with side port projecting just inferior to the diaphragm. Stable central vascular fullness and interstitial edema. Atheromatous changes of the aorta. RAD/Chest 1 View (Portable) IMPRESSION: Stable external access devices and central vascular congestion with associated interstitial edema. Reading Location: [facility]
[2025-09-20] MEDS: Piperacil/Tazobactam 3.375 GM in 0.9% Normal Saline (50mL MB+) 50 ML IV (05:03)
[2025-09-20] MEDS: TITRATION PARAMETER CHANGE 1 EACH IV (05:12)
[2025-09-20 05:42] LABS: Allen Test Positive; Base Excess -5 mmol/L (-2 to +2); FI02 50.0; PEEP 10; PO2 63 mmHG (75-100); RR 14; SITE R Radial; SO2 91 % (94-98)
[2025-09-20] MEDS: dexMEDEtomidine 400 MCG in 0.9% Normal Saline (100mL Bag) 96 ML 25.2 MCG CONT INF (07:23)
--- NOTE | 2025-09-20 09:31 | NURSING ---
[facility] transport arrived at 0848, report given to Alli. Departed at [address], fentanyl drip running @150 mcg/hr, precedex drip @1.3mcg/kg/hr, levophed drip @5mcg/min, and heparin drip @5.2mL/hr.
--- NOTE | 2025-09-20 09:32 | DS.PCM_ITS ---
Providers Date of Admission: 09/18/25 Primary Care Physician: Dr. 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 / Pulmonary Medicine Routine Consulting Provider: Intensivists/Pulmonary Med Reason for Consult: Hypotensive/mild Hypoxia, unclear etiology, CP presentation EMERGENT Consult: No Notified: Yes Date Notified: 09/18/25 Time Notified: 20:51 Method of Notification: Text 09/19/25 02:53 Consult: Cardiology Routine Consulting Provider: Milka Mejias Reason for Consult: Cardiogenic shock EMERGENT Consult: No Notified: Yes Date Notified: 09/19/25 Time Notified: 02:53 Method of Notification: Verbal Reason For Visit: HYPOXIC, HYPOTENSIVE, CP Diagnosis Discharge Diagnosis (1) Cardiogenic shock: Status: Acute Code(s): R57.0 - Cardiogenic shock Plan Acute hypoxic respiratory failure * Secondary to CHF exacerbation and possible pneumonia * Holding off on diuretics given hypotension at this time. On pip-tazo * Pulmonary consultation * Strep and Legionella antigens negative, sputum culture pending. COVID, influenza and RSV negative. * DW Dr. Jennings, concerning for CHF in what appears to be severe MR Undifferentiated shock * Cardiogenic versus distributive versus obstructive * Intra-aortic balloon pump placed on the . Patient's norepinephrine requirements have decreased. Acute HFpEF * Echo showed an EF of 65% with severe mitral regurgitation with posterior leaflet prolapse flail. * Given her acute presentation this is suspected to be an acute mitral valve issue. * Secondary to flail leaflet on the mitral valve with severe MR presumably acute. Patient placed on a balloon pump which has helped her pressures. Chronic medical conditions * Chronic Kidney Disease Stage II per current GFR trending: Admission BUN/Cr 17/0.5, GFR 72, baseline renal function unknown thus will continue to trend to further elucidate, repeat BMP in AM. * Enlarged thyroid with known goiter: Not on any regimen, noted on imaging, encourage follow-up outpatient as previously arranged with ongoing evaluation of the thyroid, TSH normal 0.66. * Chronic tachycardia/palpitations: Holding beta-gurinder therapy given hypotensive presentation, may add back once clinically appropriate. DVT prophylaxis: Lovenox. Patient to be transferred to [facility] in critical condition. Medications at Discharge Home Medications cranberry fruit 400 mg capsule 500 mg PO DAILY 10/28/17 metoprolol succinate 25 mg tablet,extended release 24 hr 25 mg PO DAILY 05/07/24 multivitamin (Daily Multi-Vitamin tablet) 1 tab PO DAILY 05/07/24 ascorbic acid (vitamin C) 500 mg tablet (C-500) 500 mg PO QDAY 09/18/25 Hospital Course Procedures 2-D Echocardiogram and Cardiac catheterization (Intra-aortic balloon pump) Summary of Care Provided Hospital Course: This is a 74-year-old female presents with chest pain. Developed acute respiratory failure and was emergently intubated emergency room. Her workup showed a flail leaflet on the mitral valve. Patient was in cardiogenic shock and intra-aortic balloon pump was placed. [facility] was contacted on the and the patient was transferred there on the and critical condition. Weight / BMI Weight Weight: 77.5 kg Body Mass Index (BMI) 29.3 ABG / Lab / Microbiology Data 09/20/25 03:25 09/19/25 04:41 Laboratory: Laboratory Results - last 24 hr 09/19/25 04:41: NT pro BNP II 3115 H, Procalcitonin 0.05 09/19/25 19:50: WBC 12.8 H, RBC 4.50, Hgb 13.3, Hct 42.3, MCV 94.0, MCH 29.6, M CHC 31.4 L, RDW Std Deviation 46.9 H, RDW Coeff of Alexa 13.5, Plt Count 178, MPV 11.7, Immature Gran % (Auto) 0.500, Neut % (Auto) 78.7 H, Lymph % (Auto) 15.5 L, Armstrong % (Auto) 4.9, Eos % (Auto) 0.1, Baso % (Auto) 0.3, Absolute Neuts (auto) 10.1 H, Absolute Lymphs (auto) 1.98, Nucleated RBC % 0, PT 14.6, INR 1.1, APTT 74.2 H 09/20/25 02:25: APTT 108.2 H* 09/20/25 03:25: WBC 13.9 H, RBC 4.43, Hgb 13.4, Hct 41.8, MCV 94.4, MCH 30.2, MCHC 32.1, RDW Std Deviation 46.5 H, RDW Coeff of Alexa 13.4, Plt Count 186, MPV 11.6, Immature Gran % (Auto) 0.400, Neut % (Auto) 76.6 H, Lymph % (Auto) 17.7 L, Armstrong % (Auto) 4.9, Eos % (Auto) 0.1, Baso % (Auto) 0.3, Absolute Neuts (auto) 10.6 H, Absolute Lymphs (auto) 2.46, Nucleated RBC % 0 Microbiology: Microbiology 09/19/25 03:01 Sputum, Induced/Lukens Gram Stain - Final 09/18/25 22:52 Mucosa - Nasopharyngeal Respiratory Panel (PCR) - Final 09/18/25 22:52 Mucosa - Nose SARS-CoV-2, Influenza & RSV (PCR) - Final 09/18/25 22:08 Nasal Secretion MRSA (PCR) - Final 09/18/25 22:22 Urine, Clean Catch Legionella Antigen - Final 09/18/25 22:22 Urine, Clean Catch Streptococcus pneumoniae Antigen (M - Final ABG: ABG 09/20/25 05:39 Specimen Type ART Sample Site R Radial pH 7.36 Bicarbonate Actual 20.8 L Total CO2 22 Base Excess -5 L O2 Saturation 91 L O2 % 50.0 ABG pCO2 37.2 ABG pO2 63 L Sreedhar Test Positive Respiration Rate 14 O2 Delivery Device ET Tube Vent Mode AC Tidal Volume 400.0 POC PEEP 10 Radiography Diagnostic Testing: Radiology Impression Abdomen Ultrasound 09/19/25 00:00 IMPRESSION: Multiple liver cysts. 6.5 cm cysts in the right kidney. 3 mm gallbladder polyp in the gallbladder. No cholelithiasis or signs of acute cholecystitis. Reading Location: [id number] Chest X-Ray 09/20/25 04:50 IMPRESSION: Stable external access devices and central vascular congestion with associated interstitial edema. Reading Location: [facility] D/C Instructions DC O2, CPAP, BIPAP Needs Home O2 Discharge instructions: No Meaningful Use Info Meaningful Use Meaningful Use Diagnoses (Choose all that apply): CHF CHF ANALI/ARB ordered at discharge?: No Reason ANALI/ARB not ordered?: Hypotension Documented LVEF (%): 65 Discharge Plan Admission Admit Date/Time: 09/18/25 20:45 Primary Reason for Your Visit: Cardiogenic shock Attending Provider: Earl Wallace Primary Care Provider: Charles Bautista Consulting Providers: Angus Steele; Winston Rodriguez; Shayan Ryder; Dalton Jennings; Jasson Hoskins; Carley White; Connor Solis; Sofiya Robert; Chad Kan; Kusum Ross; Mark Mojica; Ollie Fregoso; Kassi Cline; Deshaun Tinajero; Abhi Tomlin; Kirit Reyna; Ladonna Alvarez; Jenifer Dinero; Yamini Corona; Nancy Decker; Kaylene Stockton; Jefry Balbuena; Larissa Frost; Nika Galloway; Susan Parmar; Rio Holden; Larissa Dumont; Tapan Bynum; Keith Persaud; Cordell Starkey; Carter Roberson; CashRey; Damion,Best; Ronnell Schroeder; Naif Stone; Darshana Galicia; Caridad Shah; Woodrow Huffman; Daquna Gregory; Ridge Licona; Feliciano Elizabeth; Philippe Knight; Milka Mejias; Gaye Thakkar Discharge Orders/Prescriptions Prescriptions: No Action cranberry fruit 400 MG capsule 500 mg PO DAILY ascorbic acid (vitamin C) [C-500] 500 mg tablet 500 mg PO QDAY metoprolol succinate 25 mg tablet extended release 24 hr 25 mg PO DAILY Patient Comments: will start after current issue is resolved multivitamin [Daily Multi-Vitamin] Tablet 1 tab PO DAILY Referrals / Follow Up: Charles Bautista MD [Primary Care Provider, Family Practice] Disposition Disposition (needs filled in before D/C Order can be placed): Acute Care Hospital Charges/Coding Visit Charges Inpatient E&M: 69478 Disch Hosp >30min
== END 2025-09-20 09:25 | disposition short-term general hospital (02) | DRG 981 ==
LOC: ED 20:57 → ICU 21:10
PROVIDERS: Internal Medicine Critical Care Medicine; Specialist; Admitting Provider Family Medicine; Emergency Provider Student in an Organized Health Care Education/Training Program; PCP Family Medicine
DX: J96.01 Acute respiratory failure with hypoxia (principal); R57.0 Cardiogenic shock; I50.31 Acute diastolic (congestive) heart failure; E04.9 Nontoxic goiter, unspecified; I34.1 Nonrheumatic mitral (valve) prolapse; N18.2 Chronic kidney disease, stage 2 (mild); I34.0 Nonrheumatic mitral (valve) insufficiency; Z79.899 Other long term (current) drug therapy
CPT/HCPCS: 31500; 31720; 33967; 36569; 36600; 71045; 71275; 74018; 74174; 76705; 80048; 80053; 80061; 81001; 82533; 82803; 83605; 83735; 83880; 84145; 84443; 84484; 85025; 85610; 85652; 85730; 86140; 87040; 87070; 87077; 87086; 87088; 87205; 87449; 87631; 87633; 87641; 93005; 93306; 93454; 94002; 94003; 94799; 99152; 99153; 99252; 99285; C1894; Q9967; A4216; C1769; G0463; J2405